=== PATIENT | female | born 1975 | race Caucasian/White ===

== ENCOUNTER → 2017-08-19 14:45 | Outpatient (CLI) | payer BC, SELFPAY ==
--- NOTE | 2017-08-19 15:00 | CT_ITS ---
STUDY: CT CHEST WITHOUT CONTRAST REASON FOR EXAM: Female, 42 years old. Follow-up of nodule RADIATION DOSAGE (If Supplied By Facility): CTDIvol = ( 15.74 ) mGy, DLP = ( 507.48 ) mGycm TECHNIQUE: Transaxial imaging was performed without the administration of intravenous contrast material. Individualized dose optimization techniques were used for this CT. COMPARISON: 02/14/2017 FINDINGS: Small intrafissural nodule in the left lung apex is unchanged at 4 mm. 2 other small pleural-based nodules along the right upper lobe are also unchanged. Lungs are clear. No new masses or nodules. The lungs are normal. There is no demonstrated pleural abnormality. Normal heart and pericardium. Normal mediastinum. Normal hilar regions. Normal unenhanced pulmonary arteries. Normal aorta arch and descending thoracic aorta. Normal osseous structures. There is no demonstrated abnormality of the visualized upper abdomen. CT/Chest without Contrast IMPRESSION: Lungs are adequately inflated and clear. Stable small micronodules in the left upper lobe and right upper lobe. Recommend repeat exam in one year. Electronically Signed: David Abdi DO at 15:51 EDT Tel , Service support ,
== END ==
PROVIDERS: Family Provider Family Medicine; PCP Family Medicine; Visit Provider Internal Medicine Critical Care Medicine
DX: R91.1 Solitary pulmonary nodule (principal)
CPT/HCPCS: 71250

== ENCOUNTER → 2017-12-17 09:05 | Outpatient (CLI) | payer BC, SELFPAY | PROVIDERS: Family Provider Family Medicine; PCP Family Medicine; Referring Provider Nurse Practitioner Acute Care; Visit Provider Nurse Practitioner Acute Care | DX: R05 Cough (principal) | CPT/HCPCS: 87070; 87205 ==

== ENCOUNTER → 2018-01-20 16:13 | Outpatient (CLI) | payer BC, SELFPAY ==
[2017-12-15 09:09] VITALS: BMI 42.3
[2018-01-20 17:00] LABS: Absolute Lymphocyte Count 2.35 X10^3/ul (0.83-4.51); Basophil# 0.02 X10^3/uL; Basophil% 0.2 % (0-1); Eosinophil# 0.11 X10^3/uL; Eosinophils% 1.4 % (0-5); Hematocrit 38.6 % (37-47); Hemoglobin 12.7 g/dl (12.0-15.0); Lymphocyte # 2.35 X10^3/ul (4.0); Lymphocyte % 29.1 % (19-41); Mean Corp Hgb Conc 32.9 g/gl (32-36); Mean Corpuscular Hgb 28.2 pg (27.0-32.0); Mean Corpuscular Volume 85.6 fL (81-99); Mean Platelet Vol. 10.2 fl (6.2-12.0); Monocyte# 0.56 X10^3/uL; Monocyte% 6.9 % (0-10); Neutrophil # 4.98 X10^3/uL (2.7-7.7); Neutrophil % 61.7 % (47-70); Platelet Count 218 K/mm3 (150-450); RBC Distribution Width CV 13.7 % (11.6-14.6); Red Blood Count 4.51 M/mm3 (4.2-5.4); White Blood Count 8.1 K/mm3 (4.4-11.0)
[2018-01-20 17:08] LABS: POSITIVE COUNT NO; POSITIVE DIFFERENTIAL NO; POSITIVE MORPHOLOGY NO
[2018-01-24 05:08] LABS: Alternaria alternata <0.10 kU/L (Class 0); Bermuda Grass <0.10 kU/L (Class 0); Bluegrass, Kentucky <0.10 kU/L (Class 0); Cat Hair/Dander, Standard <0.10 kU/L (Class 0); D farinae Mite <0.10 kU/L (Class 0); D pteronyssinus <0.10 kU/L (Class 0); Dog Epithelia <0.10 kU/L (Class 0); Elm, American White <0.10 kU/L (Class 0); Oak, White <0.10 kU/L (Class 0); Plantain, English <0.10 kU/L (Class 0); Ragweed, Short/Common <0.10 kU/L (Class 0)
[2018-01-26 11:31] LABS: Mouse Urine <0.10 kU/L (Class 0)
--- OUTSIDE RECORDS SUMMARY | 2018-03-08 23:29 | XMS RPT_ITS ---
:1975 Author Organization [place] Support Name Relationship Address Phone JC HAWK Unavailable [address] + [address] [place] [address] WOOBR Unavailable [address] [place] [address] JC HAWK Unavailable [address] + [address] [place] [address] WOOBR Unavailable [address] [place] [address] KENNJC Unavailable [address] + [address] [place] [address] WOOBR Unavailable [address] [place] [address] KENNJC Unavailable [address] + [address] [place] [address] WOOBR Unavailable [address] [place] [address] KENN JC Unavailable [address] + [address] [place] [address] WOOBR Unavailable [address] [place] [address] KENNJC Unavailable [address] [place] [address] JC HAWK Unavailable [address] + [address] [place] [address] WOOBR Unavailable [address] + [address] [place] [address] NEBERGALL, JC Unavailable [address] + [address] [place] [address] WOOBR Unavailable [address] [place] [address] KENN JC Unavailable [address] + [address] [place] [address] WOOBR Unavailable [address] [place] [address] Care Team Providers Name Role Phone ALEXANDRA KAMARA Attending Unavailable MARILYNN, JC L Referring Unavailable ALEXANDRA KAMARA Attending Unavailable MARILYNN, JC L Referring Unavailable Valentin Cruz Attending Unavailable MARILYNN, JC Primary Care Unavailable Valentin Cruz Referring Unavailable AnthonyValentin pittman Attending Unavailable MARILYNN, JC Referring Unavailable MARILYNN, JC Primary Care Unavailable Matilda Worthy Attending Unavailable Worthy, Matilda Referring Unavailable MARILYNN, JC Primary Care Unavailable Matilda Worthy Attending Unavailable MARILYNN, JC Referring Unavailable WorthyMatilda Attending Unavailable Worthy, Matilda Referring Unavailable MARILYNN, JC Primary Care Unavailable Matilda Worthy Attending Unavailable MARILYNN, JC Referring Unavailable Worthy, Matilda Attending Unavailable MARILYNN, JC Referring Unavailable Valentin Cruz Attending Unavailable MARILYNN, JC Referring Unavailable MARILYNN, JC Primary Care Unavailable RADHA MENESES Attending Unavailable AYLA SUBRAMANIAN Primary Care Unavailable Enzo Hutchins Attending Unavailable Marilynn, Jc Primary Care Unavailable Enzo Hutchins Attending Unavailable Marilynn, Jc Primary Care Unavailable Enzo Hutchins Attending Unavailable Marilynn, Jc Primary Care Unavailable Enzo Hutchins Admitting Unavailable Enzo Hutchins Attending Unavailable Marilynn, Jc Primary Care Unavailable Marilynn, Jc Primary Care Unavailable Enzo Hutchins Admitting Unavailable Enzo Hutchins Attending Unavailable Enzo Hutchins Admitting Unavailable Enzo Hutchins Attending Unavailable Marilynn, Jc Primary Care Unavailable Enzo Hutchins Attending Unavailable Marilynn, Jc Primary Care Unavailable Enzo Hutchins Attending Unavailable Marilynn, Jc Primary Care Unavailable Awilda Alvarez L Attending Unavailable Marilynn, Jc Primary Care Unavailable Kim Awilda L Admitting Unavailable Kim Awilda L Admitting Unavailable Kim Awilda L Attending Unavailable Marilynn, Jc Primary Care Unavailable Cuong, Enzo R Admitting Unavailable Cuong, Enzo R Attending Unavailable Marilynn, Jc Primary Care Unavailable Cuong, Enzo R Admitting Unavailable Cuong, Enzo R Attending Unavailable Marilynn, Jc Primary Care Unavailable Radha Meneses E Admitting Unavailable [place]ha E Attending Unavailable Marilynn, Jc Primary Care Unavailable Cuong, Enzo R Attending Unavailable Marilynn, Jc Primary Care Unavailable Cuong, Enzo R Admitting Unavailable Cuong, Enzo R Attending Unavailable Marilynn, Jc Primary Care Unavailable Cuong, Enzo R Admitting Unavailable Cuong, Enzo R Attending Unavailable Marilynn, Jc Primary Care Unavailable Cuong, Enzo R Attending Unavailable Marilynn, Cj Primary Care Unavailable Cuong, Enzo R Admitting Unavailable Cuong, Enzo R Attending Unavailable Marilynn, Jc Primary Care Unavailable Cuong, Enzo R Attending Unavailable Marilynn, Jc Primary Care Unavailable PROBLEMS PROBLEMS DATE TYPE CONDITION / CODE ATTENDING STATUS SOURCE 02/27/2018 Unknown R09.82 - Worthy, Active [facility] Postnasal drip / [facility] R09.82(ICD-10) Hospital Repository 02/27/2018 Unknown J40 - Bronchitis, Worthy, Active [facility] not specified as [facility] acute or chronic Hospital / J40(ICD-10) Repository 12/17/2017 Unknown R05 - Cough / Worthy, Active [place] R05(ICD-10) [facility] Repository 12/02/2017 Unknown R06.2 - Wheezing Worthy, Active [place] / R06.2(ICD-10) [facility] Repository 10/24/2017 Admitting Chronic migraine RAALEXANDRA MCCORMICK F Active [facility] Diagnosis without aura, not System ([place]) intractable, Repository without status migrainosus / G43.709(ICD-10) 10/07/2016 Admitting Hyperlipidemia, RADHA MENESES Active [facility] diagnosis unspecified / [facility] Repository E78.5(ICD-10) 08/19/2017 Unknown R91.1 - Solitary Anthony, Valentin Active [place] pulmonary nodule [facility] / R91.1(ICD-10) Hospital Repository PROCEDURES PROCEDURES No Procedure Records FoundRESULTS RESULTS PULMONARY VISIT REPORT Observed: 02/26/2018 Status: F Source: [place] 2:48 PM [facility] [place] [facility] [place] [address] [place] [address] OFFICE VISIT Date of Service: 02/26/18 MR#: [id number] Acct: [id number] Name: SURAJ HAWK Rep #: [id number] : 1975 Provider: Matilda Worthy Age/Sex: 42/F Location[place] [facility] [place] Status: Signed Assessment AND Plan 1. PND (post-nasal drip) R09.82 Plan Stable. Continue Dymista. Follow-up with Dr. Cruz in 3 months. 2. Bronchitis J40 Plan This patient does very well for significant amount of time, however occasionally she has an episode similar to reactive airway disorder, triggered by bacterial or viral respiratory illness. At that time it typically requires a prednisone taper, sometimes repeated to control her symptoms. The prednisone is the only thing that has been helpful to her during these episodes. Given that the only occur when a respiratory insult happens, and they cause her cough and hoarseness, it is reasonable to wonder if there is vocal cord polyps causing her symptoms. Defer further evaluation to ENT, whom she has established in [place]. Follow-up with Dr. Cruz in 3 months. Contact the office with any new or worsening symptoms in the meantime. Appreciate ENT input. Plan Detail Follow Up 3 Months ([facility]) HPI 6 M FU: Chief Complaint: None HPI Comments Details: This patient presents the office today follow-up on her hoarseness. She is ambulatory and currently in room air. She has not been seen by the ED or urgent care for respiratory illnesses. She has not required any antibiotics or prednisone for any breathing problems since her last office visit. She is not currently on any maintenance inhalers. She does take Dymista twice daily. She reports that it does control her postnasal drip. She has not needed to use her rescue inhaler. She denies any medication side effects such as epistaxis. She does not currently have any shortness of breath with conversation, at rest or even on exertion. She denies any cough, sputum production or hemoptysis. She denies any wheezing, chest tightness, chest pain, palpitation or hoarseness. She denies any fever, chills or body aches. See complete review of systems. Laboratory Tests WBC 8.1 Eos % (Auto) 1.4 Alternar. alternata IgE <0.10 Intake Vital Signs02/26/18 Height 5 ft 1 in 02/26/18 Weight: 231 lb Intake Visit Reasons: 6 M FU Accompanied by: Self Allergies amoxicillin [From Augmentin] Allergy (Severe, Verified 12/15/17 08:08) unknown clavulanic acid [From Augmentin] Allergy (Severe, Verified 12/15/17 08:08) unknown levofloxacin [From Levaquin] Allergy (Severe, Verified 12/15/17 08:08) Unknown sulfamethoxazole [From Bactrim] Allergy (Severe, Verified 12/15/17 08:08) unknown trimethoprim [From Bactrim] Allergy (Severe, Verified 12/15/17 08:08) unknown Sulfa (Sulfonamide Antibiotics) Allergy (Unknown, Verified 12/15/17 08:08) Unknown Medications albuterol sulfate HFA 90 mcg/actuation aerosol inhaler 2 puff INHALATION Q4H PRN g 02/14/17 [History Confirmed 02/26/18] azelastine-fluticasone 137 mcg-50 mcg/spray nasal spray 1 spray INTRANASAL Q12H #23 g 02/14/17 [Rx Confirmed 02/26/18] budesonide-formoterol HFA 160 mcg-4.5 mcg/actuation aerosol inhaler 2 puff INHALATION Q12H 02/14/17 [History Confirmed 02/26/18] montelukast 10 mg tablet 10 mg PO QHS 02/14/17 [History Confirmed 02/26/18] loratadine 10 mg tablet 10 mg PO QDAY 08/25/17 [History Confirmed 02/26/18] [facility] Medical History Abnormal pulmonary function test (Acute) Dyspnea (Acute) Hoarseness (Acute) Migraine (Acute) Sinusitis (Acute) Sore throat (Acute) Wheezing (Acute) Allergic rhinitis (Chronic) Bronchitis (Chronic) Chronic cough (Chronic) Cough (Chronic) Hyperlipidemia (Chronic) Lung nodule (Chronic) Obesity (Chronic) Surgical History H/O foot surgery (Resolved) Previous section (Resolved) tubal ligation and ablasion (Resolved) Family History Grandmother Breast cancer Father Heart disease Social History Smoking Status: Former smoker quit date: 02/10/94 pack-years: 5 second hand exposure: No alcohol intake: never substance use type: does not use Review of Systems Const CONSTITUTIONAL: Negative anorexia, body ache, chills, daytime sleepiness, fever(s), night sweats, oral thrush, stops breathing during sleep, weight loss, sleeping in chair, fatigue, weight loss, weight gain, frequent colds, seasonal allergies, other, headache(s) or orthopnea EETM Ear Nose Throat Mouth: Positive post nasal drip; negative hard of hearing, hearing normal, hoarseness, dry mouth in morning, change in vision, itchy eyes, eye pain, swallowing Difficulty, ear pain, nose bleed, headache(s), mouth pain, nasal congestion, nasal discharge, sinus pain, sinus pressure, sore throat or other Cardio Cardiovascular: Negative chest pain, chest pain at rest, chest pain with activity, irregular heart rhythm, edema, shortness of breath when lying down, palpitations, murmur or other Resp Respiratory: Positive as per HPI and cough (due to PND) cough: Positive non-productive; negative shortness of breath, pain with cough, wheezing, chest congestion, chest tightness, pain on inspiration, inhalers, increase use of rescue inhalers, snoring, apnea or other Gastro Gastrointestional: Negative bloody stools, change in appetite, difficulty swallowing, reflux, hematemesis, melena stool, loose stool, constipation or other Genitourinary: Negative blood in urine, nocturia, pain with urination or other Musc Musculoskeletal: Negative body pain, back pain, neck pain or other Skin/Breast Skin/Breast: Negative dry skin, itching, rash, unusual bruising, breast lump or other Neuro Neurological: Negative restless legs, confusion, weakness or other Psych Psychocological: Negative abnormal sleep pattern, anxiety, thoughts of hurting self/others, hopelessness or other Lymph Lymphatic: Negative easy bleeding, easy bruising, swollen lymph nodes or other Exam Const Constitutional: Positive conversant, cooperative, in no acute respiratory distress, healthy appearing, well developed, well nourished and good hygiene Head Head: Positive normocephalic and atraumatic; negative cyanosis of lips/distal nose Eyes Eye: Positive clear conjunctiva; negative nystagmus or scleral abnormality Ears Ear: Positive external ears normal; negative hard of hearing or hearing normal Nose Nose: Positive external nose normal and no nasal discharge; negative epistaxis Mouth Mouth: Positive post nasal drip, oral mucosae normal, no lesions, good dentition and posterior oropharynx is adequate; negative oral thrush present or malodorous breath Mallampati Score: I: Mallampati Score Neck Neck: Positive normal visual inspection, full ROM and trachea midline; negative lymphadenopathy, JVD or tender Chest Wall Chest: Positive normal inspection of the chest and symmetric chest movement; negative increased A/P diameter Resp lung sounds: Positive clear to auscultation, good air exchange, normal expiratory time and normal respiratory effort; negative diminished, wheezes, rhonchi, rales, dullness to percussion or wheeze present on forced exhalation Cardio Cardiac: Positive regular rate, regular rhythm, S1 normal and S2 normal; negative murmur GI GI: Positive normal to inspection; negative distended Genitourinary: Positive deferred Musc Musculoskeletal: Positive steady gait and ROM normal; negative kyphosis or scoliosis Skin Pulmonary Skin Exam: Positive intact; negative rash Pulses Pulse: Yes pulses normal x4 extremities Extremities Extremities: Yes capillary refill normal, No clubbing, No cyanosis, No edema Neuro Neurologic: Yes conversant, Yes no focal neuro deficits, Yes normal concentration, Yes understands questions, Yes cooperative, Yes normal cognition, Yes normal coordination, No tremor Lymph Lymphatic: No lymphadenopathy, No tenderness, No cervical adenopathy Psych Appearance: Positive grossly normal, eye contact and well kempt Mental Status: Positive mental status grossly normal Mood: Positive congruent mood Affect: Positive normal affect Coding Level of Care Code Off vis,est,level 3 Diagnoses PND (post-nasal drip) R09.82 Bronchitis J40 02/26/18 [id number] <Electronically signed by Matilda NOVOA> Date Matilda NOVOA Cosigner Signature: Date (if applicable) CC: NELSON MONROY; Jc Subramanian MD CBC W/DIFF, AUTOMATED Collected: 01/20/2018 Status: F Source: [place] 4:29 PM [facility] [place] TYPE CODE TESTS RESULT OUT OF RANGE REFERENCE UNITS LAB L100.1000 4.4-11.0 K/mm3 Normal WBC 8.1 LAB L100.1200 4.2-5.4 M/mm3 Normal RBC 4.51 LAB L100.1300 12.0-15.0 g/dl Normal HGB 12.7 LAB L100.1400 37-47 % Normal HCT 38.6 LAB L100.1500 81-99 fL Normal MCV 85.6 LAB L100.1600 27.0-32.0 pg Normal MCH 28.2 LAB L100.1700 32-36 g/gl Normal MCHC 32.9 LAB L100.1810 11.6-14.6 % Normal RDW CV 13.7 LAB L100.1820 35.1-43.9 fl Normal RDW SD 42.0 LAB L100.1900 150-450 K/mm3 Normal PLT 218 LAB L100.2000 6.2-12.0 fl Normal MPV 10.2 LAB L100.2100 47-70 % Normal NEUT% 61.7 LAB L100.2200 19-41 % Normal LY% 29.1 LAB L100.2300 0-10 % Normal MONO% 6.9 LAB L100.2400 0-5 % Normal EO% 1.4 LAB L100.2500 0-1 % Normal BASO% 0.2 LAB L100.2550 0.0-0.9 % Normal IM GRAN % 0.700 Result Comment: IG% - Immature Granulocytes (promyelocytes, myelocytes and metamyelocytes) > 1% indicates that a LEFT SHIFT is Present. LAB L100.2620 2.0-7.7 X10 3/uL Normal Absolute Neut 5.0 LAB L100.2720 0.83-4.51 X10 3/ul Normal Absolute Lymph 2.35 Performed By: #### L100.0100 #### [facility] [address] [place], [address] ALLERGEN, MINI-RAST Collected: 01/20/2018 Status: F Source: MER 4:29 PM [facility] [place] TYPE CODE TESTS RESULT OUT OF REFERENCE UNITS RANGE LAB L5500.1001 Class 0 kU/L D PTERONYSSINUS Normal <0.10 LAB L5500.1002 Class 0 kU/L D FARINAE MITE Normal <0.10 LAB L5500.2001 Class 0 kU/L CAT HAIR/DANDER Normal <0.10 LAB L5500.2002 Class 0 kU/L DOG EPITHELIA Normal <0.10 LAB L5500.4002 Class 0 kU/L B[place]DA GRASS Normal <0.10 LAB L5500.4008 Class 0 kU/L [place], [place] Normal <0.10 LAB L5500.5006 Class 0 kU/L A. ALTERNATA Normal <0.10 LAB L5500.6007 Class 0 kU/L [place], WHITE Normal <0.10 LAB L5500.6008 Class 0 kU/L [place],AMER WHITE Normal <0.10 LAB L5500.7001 Class 0 kU/L [place] SH/COM Normal <0.10 LAB L5500.7009 Class 0 kU/L [place],ENGLSH Normal <0.10 LAB L5500.7150 Class 0 kU/L Mouse Urine Normal <0.10 Result Comment: Performed at: [address] [id number] Adventure Guide: Magalis Gonzalez MD, Phone: [phone] LAB [id number] . Normal RAST COMMENT Comment Result Comment: Levels of Specific IgE Class Description of Class ----- < 0.10 0 Negative 0.10 - 0.31 0/I Equivocal/Low 0.32 - 0.55 I Low 0.56 - 1.40 II Moderate 1.41 - 3.90 III High 3.91 - 19.00 IV Very High 19.01 - 100.00 V Very High >100.00 Very High Performed By: #### L5500.0300 #### [facility] (refer to report for specific site) refer to report for address and phone number CBC W/ AUTO DIFF Collected: 12/25/2017 Status: F Source: SIKH 6:51 AM [facility] REPOSITORY TYPE CODE TESTS RESULT OUT OF RANGE REFERENCE UNITS LAB 63470503(L 3.6-11.0 E3/mcL OINC) Normal WBC 8.6 LAB 14264735(L 3.90-5.40 E6/mcL OINC) Normal RBC 4.63 LAB 19735685(L 12.0-16.0 G/DL OINC) Normal Hgb 13.2 LAB 46888174(L 36.0-48.0 % OINC) Normal Hct 39.8 LAB 35009366(L 11.5-14.5 % OINC) Normal RDW 14.2 LAB 64243427(L 27.0-31.0 pg OINC) Normal MCH 28.4 LAB 87760580(L 33.0-37.0 G/DL OINC) Normal MCHC 33.1 LAB 51794893(L 78.0-100.0 fL OINC) Normal MCV 85.9 LAB 09421446(L 7.4-11.0 fL OINC) Normal MPV 8.6 LAB 76221033(L 130-400 E3/mcL OINC) Normal Platelet 166 Performed By: #### [id number] #### [facility] [address] [place] [address] AUTO DIFF Collected: 12/25/2017 Status: F Source: SIKH 6:51 AM [facility] REPOSITORY Order Comment: Order Added by Discern Expert. TYPE CODE TESTS RESULT OUT OF RANGE REFERENCE UNITS LAB 36648646(L 37.0-75.0 % OINC) Normal Neutro Auto 73.2 LAB 57719648(L 20.0-55.0 % OINC) Low Lymph Auto 18.0 LAB 10110699(L 0.0-10.0 % OINC) Normal [place] Auto 6.1 LAB 41757909(L 0.0-11.0 % OINC) Normal Eos Auto 2.2 LAB 44110620(L 0.0-2.0 % OINC) Normal Basophil Auto 0.5 LAB 36293180(L 1.4-6.5 E3/mcL OINC) Normal Neutro 6.3 Absolute LAB 48709613(L 1.2-3.4 E3/mcL OINC) Normal Lymph Absolute 1.6 LAB 98819649(L 0.0-0.7 E3/mcL OINC) Normal [place] Absolute 0.5 LAB 16335000(L 0.0-0.7 E3/mcL OINC) Normal Eos Absolute 0.2 LAB 09040174(L 0.0-0.2 E3/mcL OINC) Normal Basophil 0.0 Absolute Performed By: #### [id number] #### [facility] [address] [place] [address] BHCG QUAL Collected: 12/25/2017 Status: F Source: SIKH 6:51 AM [facility] REPOSITORY TYPE CODE TESTS RESULT OUT OF RANGE REFERENCE UNITS LAB 65179615(LO Negative INC) Normal Beta Negative hCG Ql Performed By: #### [id number] #### ANNA Chemistry Manual Subsection [facility] [place] [address] XR HYSTEROSALPINGOGRAPHY Observed: Status: F Source: SIKH 12/17/2017 8:26 AM [facility] REPOSITORY Exam Date/Time: 12/17/2017 08:26 EST Reason for Exam: MENOMETRORRHAGIA;Other (please specify) Report STUDY: XR Hysterosalpingography; 12/17/2017 8:26 am INDICATION: Menometrorrhagia COMPARISON: None. ACCESSION NUMBER(S): [id number] ORDERING CLINICIAN: Enzo Hutchins TECHNIQUE: An HSG was performed in conjunction with Dr. Dr. Hutchins. 10 ML of contrast was infused under fluoroscopic guidance and spot views of the uterus and bilateral fallopian tubes were obtained. The patient tolerated the procedure well. Fluoroscopic time was 0.7 min. FINDINGS: Contrast is observed to fill a uterus that is irregular in contour, with no filling of the right uterine horn.. No contrast is seen to enter the fallopian tubes bilaterally. IMPRESSION: 1. Irregular contour of the endometrial canal, as above.. Correlate with real time fluoroscopic findings at the time of procedure. FINAL REPORT Dictated: 12/17/2017 9:45 am Hunter Redding MD Signed (Electronic Signature): 12/17/2017 9:45 am Signed by: Hunter Redding MD Technologist: HIPOLITO Observed: 12/17/2017 Status: F Source: MER CULTURE, SPUTUM 6:00 AM [facility] [place] Gram Stain Acceptable Specimen? Yes (<25 Epithelial cells per/lpf) Gram Stain 4+ Gram positive cocci Rare Gram positive rods Very Rare Yeast Like Organisms 1+ White Blood Cells 1+ Epithelial cells Resp. Culture Mixed normal respiratory sandoval. No Haemophilus, Streptococcus pneumoniae, beta-hemolytic Streptococcus or Staphylococcus aureus isolated. Performed By: #### M100.0800 #### [facility] [address] [place], [address] PULMONARY VISIT REPORT Observed: 12/16/2017 Status: F Source: MER 12:18 PM [facility] [place] [facility] [address] [place] [address] OFFICE VISIT Date of Service: 12/15/17 MR#: [id number] Acct: [id number] Name: SURAJ HAWK Rep #: [id number] : 1975 Provider: Matilda Worthy Age/Sex: 42/F Location[place] [facility] [place] Status: Signed Assessment AND Plan 1. Cough R05 Plan Deteriorated. We will attempt to obtain a sputum culture. Kenalog injection in the office today followed by a prednisone burst. Increased Symbicort from the 80 mcg dosing to the 160 mcg dosing. Follow-up in 6 weeks. Continue all maintenance medications. Plan for a CBC with differential and a mini Rast test prior to the 6-week follow- up. Looking for possible eosinophilic asthma. Orders Orders: Medications Discontinued: Kenalog (triamcinolone acetonide) Discontinued Rea60 mg (1.5 mL) IM ONCE 1.5 mL 0RF NS son: Office Medication has been Documented as given 2. PND (post-nasal drip) R09.82 Plan Deteriorated. Continue Dymista. Continue weekly allergy injections per ENT. Follow-up in 6 weeks. Additional blood work in 5 weeks. Plan Detail Other Medications New: Follow Up 6 Weeks ([facility]) HPI not feeling well: Chief Complaint: Cough HPI Comments Details: This patient presents the office today to follow-up after recently being treated for an exacerbation of asthma. She finished the antibiotics and prednisone as prescribed but did not return to baseline. She continues to have a cough that is productive of yellow sputum. She denies any shortness of breath, but does report that when she is coughing persistently at times it does take her breath away. She denies any fever, chills or body aches. She continues to experience clear nasal drainage. She is having hoarseness. She now is having a sore throat which she attributes to the frequent cough. She denies any wheezing, chest tightness, chest pain or palpitations. She is compliant with Dymista, Singulair, Claritin and is recently been using Symbicort 80 mcg. See complete review of systems. Intake Vital Signs12/15/17 Height 5 ft 1 in 12/15/17 Weight: 224 lb Intake Visit Reasons: not feeling well Chief Complaint: Cough Allergies amoxicillin [From Augmentin] Allergy (Severe, Verified 12/15/17 08:08) unknown clavulanic acid [From Augmentin] Allergy (Severe, Verified 12/15/17 08:08) unknown levofloxacin [From Levaquin] Allergy (Severe, Verified 12/15/17 08:08) Unknown sulfamethoxazole [From Bactrim] Allergy (Severe, Verified 12/15/17 08:08) unknown trimethoprim [From Bactrim] Allergy (Severe, Verified 12/15/17 08:08) unknown Sulfa (Sulfonamide Antibiotics) Allergy (Unknown, Verified 12/15/17 08:08) Unknown Medications albuterol sulfate HFA 90 mcg/actuation aerosol inhaler 2 puff INHALATION Q4H PRN g 02/14/17 [History Confirmed 12/15/17] azelastine-fluticasone 137 mcg-50 mcg/spray nasal spray 1 spray INTRANASAL Q12H #23 g 02/14/17 [Rx Confirmed 12/15/17] budesonide-formoterol HFA 160 mcg-4.5 mcg/actuation aerosol inhaler 2 puff INHALATION Q12H 02/14/17 [History Confirmed 12/15/17] montelukast 10 mg tablet 10 mg PO QHS 02/14/17 [History Confirmed 12/15/17] loratadine 10 mg tablet 10 mg PO QDAY 08/25/17 [History Confirmed 12/15/17] prednisone 20 mg tablet 60 mg PO QDAY #15 tab 12/15/17 [Rx Confirmed 12/15/17] PF[facility] Medical History Abnormal pulmonary function test (Acute) Dyspnea (Acute) Hoarseness (Acute) Migraine (Acute) Sinusitis (Acute) Sore throat (Acute) Wheezing (Acute) Allergic rhinitis (Chronic) Bronchitis (Chronic) Chronic cough (Chronic) Cough (Chronic) Hyperlipidemia (Chronic) Lung nodule (Chronic) Obesity (Chronic) Surgical History H/O foot surgery (Resolved) Previous section (Resolved) tubal ligation and ablasion (Resolved) Family History Grandmother Breast cancer Father Heart disease Social History Smoking Status: Former smoker quit date: 02/10/94 pack-years: 5 second hand exposure: No alcohol intake: never substance use type: does not use Review of Systems Const CONSTITUTIONAL: Positive fatigue; negative anorexia, body ache, chills, daytime sleepiness, fever(s), night sweats, oral thrush, stops breathing during sleep, weight loss, sleeping in chair, weight loss, weight gain, frequent colds, seasonal allergies, other, headache(s) or orthopnea EETM Ear Nose Throat Mouth: Positive hearing normal, hoarseness, nasal discharge, post nasal drip and sore throat; negative hard of hearing, dry mouth in morning, change in vision, itchy eyes, eye pain, swallowing Difficulty, ear pain, nose bleed, headache(s), mouth pain, nasal congestion, sinus pain, sinus pressure or other Cardio Cardiovascular: Negative chest pain, chest pain at rest, chest pain with activity, irregular heart rhythm, edema, shortness of breath when lying down, palpitations, murmur or other Resp Respiratory: Positive as per HPI, shortness of breath shortness of breath: Positive with activity, pain with cough, wheezing, cough cough: Positive productive color: Positive thick and yellow, chest tightness and inhalers; negative chest congestion, pain on inspiration, increase use of rescue inhalers, snoring, apnea or other Gastro Gastrointestional: Negative bloody stools, change in appetite, difficulty swallowing, reflux, hematemesis, melena stool, loose stool, constipation or other Genitourinary: Negative blood in urine, nocturia, pain with urination or other Musc Musculoskeletal: Negative body pain, back pain, neck pain or other Skin/Breast Skin/Breast: Negative dry skin, itching, rash, unusual bruising, breast lump or other Neuro Neurological: Negative restless legs, confusion, weakness or other Psych Psychocological: Negative abnormal sleep pattern, anxiety, thoughts of hurting self/others, hopelessness or other Lymph Lymphatic: Negative easy bleeding, easy bruising, swollen lymph nodes or other Exam Const Constitutional: Positive conversant, cooperative, in no acute respiratory distress, healthy appearing, well developed, well nourished, good hygiene and obese Head Head: Positive normocephalic and atraumatic; negative cyanosis of lips/distal nose Eyes Eye: Positive clear conjunctiva; negative nystagmus or scleral abnormality Ears Ear: Positive hearing normal and external ears normal; negative hard of hearing Nose Nose: Positive external nose normal and no nasal discharge; negative epistaxis Mouth Mouth: Positive post nasal drip, oral mucosae normal, no lesions, posterior oropharynx is adequate and crowded posterior oropharynx; negative malodorous breath or oral thrush present Mallampati Score: III: Mallampati Score Neck Neck: Positive normal visual inspection, full ROM and trachea midline; negative lymphadenopathy, JVD or tender Chest Wall Chest: Positive normal inspection of the chest and symmetric chest movement; negative increased A/P diameter Resp lung sounds: Positive diminished, wheeze present on forced exhalation, normal expiratory time and normal respiratory effort; negative rhonchi, rales or dullness to percussion Cardio Cardiac: Positive regular rate, regular rhythm, S1 normal and S2 normal; negative murmur GI GI: Positive normal to inspection and obese; negative distended Genitourinary: Positive [place] [facility] Musculoskeletal: Positive steady gait and ROM normal; negative kyphosis or scoliosis Skin Pulmonary Skin Exam: Positive intact; negative rash Pulses Pulse: Yes pulses normal x4 extremities Extremities Extremities: No capillary refill normal, No clubbing, No cyanosis, No edema Neuro Neurologic: Yes conversant, Yes no focal neuro deficits, Yes normal concentration, Yes understands questions, Yes cooperative, Yes normal cognition, Yes normal coordination Lymph Lymphatic: No lymphadenopathy, No tenderness, No cervical adenopathy Psych Appearance: Positive grossly normal, eye contact and well kempt Mental Status: Positive mental status grossly normal Mood: Positive congruent mood Affect: Positive normal affect Office Meds Kenalog Performing Provider: SOMMER Vargas Administered by: Gabriela Ayala on 12/15/17 09:49 Dose Route Admin Location Lot Number Expiration Date NDC Post Tension[employer] 60 mg IM Lt gluteal [id number] 02/10/19 0509-6301-06 DorsaVI Coding Level of Care Code Off vis,est,level 4 Diagnoses Cough R05 PND (post-nasal drip) R09.82 12/16/17 1218 <Electronically signed by Matilda NOVOA> Date Matilda NOVOA Cosigner Signature: Date (if applicable) CC: Jc Subramanian MD U BHCG QLT Collected: 12/13/2017 Status: F Source: [place] 10:03 AM [facility] REPOSITORY TYPE CODE TESTS RESULT OUT OF RANGE REFERENCE UNITS LAB [id number](BIA Neg NC) Normal U beta Neg hCG Ql Performed By: #### [id number] #### ANNA Urinalysis Manual [address] [address] PULMONARY VISIT REPORT Observed: 12/03/2017 Status: F Source: [place] 8:02 AM [facility] [place] Pul[facility] Medicine [address] [place], [place] [address] OFFICE VISIT Date of Service: 12/02/17 MR#: [id number] Acct: [id number] Name: SURAJ HAWK Rep #: [id number] : 1975 Provider: Matilda Worthy Age/Sex: 42/F Location[place] [facility] [email or web address] Status: Signed Assessment AND Plan 1. Bronchitis J40 Plan Deteriorated. Treating for bronchitis with possibly a sinusitis, Augmentin times 10 days, Kenalog injection in the office today. She has been advised to contact the office on Friday to give us an update, may require a prednisone burst. Continue Symbicort for now. Keep previously scheduled routine follow-up. Contact the office with any new or worsening symptoms in the meantime. 2. PND (post-nasal drip) R09.82 Plan Continue maintenance medication. Plan Detail Other Orders Orders: Other Medications New: Discontinued: Kenalog (triamcinolone acetonide) [id number] mg (1.5 mL) IM ONCE 1.5 mL 0RF NS R06.2 d Reason: Office Medication has been Documented as given HPI hoarseness, sinuses: Chief Complaint: Cough HPI Comments Details: This patient presents the office today for an acute visit regarding cough. She reports that her symptoms began approximately 1 week ago. Her cough is more frequent in the morning and is productive of yellow sputum, after the morning begins her cough becomes dry and barking throughout the day. She has not experienced any fevers. She does report chest tightness and chest congestion. She also notes hoarseness, left ear discomfort and popping. She has experienced chills and fatigue. She reports that her children have been ill with similar symptoms but they have resolved in a short period of time. She is now on the Symbicort, had stopped taking it for quite some time but resumed taking the Symbicort when the illness began. She is using her pro-air 2-3 times per day but has not noticed it relieving her cough. She is not having any worsening shortness of breath. She denies any palpitations or chest pain. See complete review of systems. She has not added any [id number] medications, is compliant with Dymista and Singulair as previously prescribed. Intake Vital Signs12/02/17 Height 5 ft 1 in 12/02/17 Weight: 224 lb Intake Visit Reasons: hoarseness, sinuses Accompanied by: Self Allergies amoxicillin [From Augmentin] Allergy (Severe, Verified 12/02/17 11:59) unknown clavulanic acid [From Augmentin] Allergy (Severe, Verified 12/02/17 11:59) unknown levofloxacin [From Levaquin] Allergy (Severe, Verified 12/02/17 11:59) Unknown sulfamethoxazole [From Bactrim] Allergy (Severe, Verified 12/02/17 11:59) unknown trimethoprim [From Bactrim] Allergy (Severe, Verified 12/02/17 11:59) unknown Sulfa (Sulfonamide Antibiotics) Allergy (Unknown, Verified 12/02/17 11:59) Unknown Medications albuterol sulfate HFA 90 mcg/actuation aerosol inhaler 2 puff INHALATION Q4H PRN g 02/14/17 [History Confirmed 12/02/17] azelastine-fluticasone 137 mcg-50 mcg/spray nasal spray 1 spray INTRANASAL Q12H #23 g 02/14/17 [Rx Confirmed 12/02/17] budesonide-formoterol HFA 160 mcg-4.5 mcg/actuation aerosol inhaler 2 puff INHALATION Q12H 02/14/17 [History Confirmed 12/02/17] montelukast 10 mg tablet 10 mg PO QHS 02/14/17 [History Confirmed 12/02/17] loratadine 10 mg tablet 10 mg PO QDAY 08/25/17 [History Confirmed 12/02/17] amoxicillin 875 mg-potassium clavulanate 125 mg tablet 1 tab PO BID #20 tab 12/02/17 [Rx Confirmed 12/02/17] [facility] Medical History Abnormal pulmonary function test (Acute) Dyspnea (Acute) Hoarseness (Acute) Migraine (Acute) Sinusitis (Acute) Sore throat (Acute) Wheezing (Acute) Allergic rhinitis (Chronic) Bronchitis (Chronic) Chronic cough (Chronic) Cough (Chronic) Hyperlipidemia (Chronic) Lung nodule (Chronic) Obesity (Chronic) Surgical History H/O foot surgery (Resolved) Previous section (Resolved) tubal ligation and ablasion (Resolved) Family History Grandmother Breast cancer Father Heart disease Social History Smoking Status: Former smoker quit date: 02/10/94 pack-years: 5 second hand exposure: No alcohol intake: never substance use type: does not use Review of Systems Const CONSTITUTIONAL: Positive chills and fatigue; negative anorexia, body ache, daytime sleepiness, fever(s), night sweats, oral thrush, stops breathing during sleep, weight loss, sleeping in chair, weight loss, weight gain, frequent colds, seasonal allergies, other, headache(s) or orthopnea EETM Ear Nose Throat Mouth: Positive hearing normal, hoarseness, ear pain (popping and plugged), nasal congestion, nasal discharge, post nasal drip and sore throat; negative hard of hearing, dry mouth in morning, change in vision, itchy eyes, eye pain, swallowing Difficulty, nose bleed, headache(s), mouth pain, sinus pain, sinus pressure or other Cardio Cardiovascular: Negative chest pain, chest pain at rest, chest pain with activity, irregular heart rhythm, edema, shortness of breath when lying down, palpitations, murmur or other Resp Respiratory: Positive as per HPI, shortness of breath shortness of breath: Positive with activity and worsening, pain with cough, chest congestion, cough cough: Positive productive (upon rising ) color: Positive thick and yellow, chest tightness and inhalers; negative wheezing, pain on inspiration, increase use of rescue inhalers, snoring, apnea or other Gastro Gastrointestional: Negative bloody stools, change in appetite, difficulty swallowing, reflux, hematemesis, melena stool, loose stool, constipation or other Genitourinary: Negative blood in urine, nocturia, pain with urination or other Musc Musculoskeletal: Negative body pain, back pain, neck pain or other Skin/Breast Skin/Breast: Negative dry skin, itching, rash, unusual bruising, breast lump or other Neuro Neurological: Negative restless legs, confusion, weakness or other Psych Psychocological: Positive abnormal sleep pattern; negative anxiety, thoughts of hurting self/others, hopelessness or other Lymph Lymphatic: Negative easy bleeding, easy bruising, swollen lymph nodes or other Exam Const Constitutional: Positive conversant, cooperative, in no acute respiratory distress, healthy appearing, well developed, well nourished, good hygiene and obese Head Head: Positive normocephalic, atraumatic and maxillary sinus tenderness; negative cyanosis of lips/distal nose or frontal sinus tenderness Eyes Eye: Positive clear conjunctiva; negative nystagmus or scleral abnormality Ears Ear: Positive hearing normal, external ears normal and TM dull (left); negative hard of hearing Nose Nose: Positive external nose normal and no nasal discharge; negative epistaxis Mouth Mouth: Positive post nasal drip, oral mucosae normal, no lesions, good dentition and posterior oropharynx is adequate; negative malodorous breath or oral thrush present Mallampati Score: II: Mallampati Score Neck Neck: Positive normal visual inspection, full ROM and trachea midline; negative lymphadenopathy, JVD or tender Chest Wall Chest: Positive normal inspection of the chest and symmetric chest movement; negative increased A/P diameter Resp lung sounds: Positive diminished, wheeze present on forced exhalation, normal expiratory time and normal respiratory effort; negative wheezes, rhonchi, rales or dullness to percussion Cardio Cardiac: Positive regular rate, regular rhythm, S1 normal and S2 normal; negative murmur GI GI: Positive normal to inspection and obese; negative distended Genitourinary: Positive deferred Musc Musculoskeletal: Positive steady gait and ROM normal; negative kyphosis or scoliosis Skin Pulmonary Skin Exam: Positive intact; negative rash Pulses Pulse: Yes pulses normal x4 extremities Extremities Extremities: Yes capillary refill normal, No clubbing, No cyanosis, No edema Neuro Neurologic: Yes conversant, Yes no focal neuro deficits, Yes normal concentration, Yes understands questions, Yes cooperative, Yes normal cognition, Yes normal coordination Lymph Lymphatic: No lymphadenopathy, No tenderness, No cervical adenopathy Psych Appearance: Positive grossly normal, eye contact and well kempt Mental Status: Positive mental status grossly normal Mood: Positive congruent mood Affect: Positive normal affect Office Meds Kenalog Performing Provider: SOMMER Vargas Administered by: Gabriela Ayala on 12/02/17 14:35 Dose Route Admin Location Lot Number Expiration Date NDC Post Tension[employer] Helper 60 mg IM Rt Gluteal [id number] 02/10/19 2472-3091-93 DorsaVI Coding Level of Care Code Off vis,est,level 4 Diagnoses Bronchitis J40 PND (post-nasal drip) R09.82 12/03/17 0802 <Electronically signed by Matilda NOVOA> Date Matilda NOVOA Cosigner Signature: Date (if applicable) CC: Jc Subramanian MD LIPID PROFILE Collected: 09/20/2017 Status: F Source: [place] 7:07 AM [facility] REPOSITORY TYPE CODE TESTS RESULT OUT OF RANGE REFERENCE UNITS LAB [id number](LO 50-200 mg/dL INC) High Chol 239 Result Comment: TOTAL CHOLEESTEROL: <200 NORMAL 200 - 239 BORDERLINE HIGH >240 HIGH LAB [id number](LOINC) >=41 mg/dL Normal HDL 56 LAB [id number](LOINC) 0-130 mg/dL High LDL 172 Result Comment: <100 OPTIMAL 100-129 NEAR / ABOVE OPTIMAL 130-159 BORDERLINE HIGH 160-189 HIGH >190 VERY HIGH CALC LDL NOT VALID WHEN TRIGLYCERIDE IS >400 MG/DL LAB [id number](LOINC) 35-150 mg/dL Normal Trig 57 Result Comment: <150 NORMAL 150-199 BORDERLINE HIGH 200-499 HIGH >500 VERY HIGH LAB [id number](LOINC) Normal VLDL 11 Performed By: #### [id number] #### ANNA [facility] [address] [place] [address] MAMM SCREEN W/CAD Observed: 09/08/2017 Status: F Source: [facility] IF PERFORMED BILAT 7:40 AM [facility] REPOSITORY Exam Date/Time: 09/08/2017 07:49 EDT Reason for Exam: SCREENING;Screening Report STUDY: Digital mammography screening; 09/08/2017 7:49 am ACCESSION NUMBER(S): [id number] ORDERING CLINICIAN: Enzo Hutchins INDICATION: Screening. COMPARISON: Comparison is made to prior digital mammograms dated 10/31/2016 and 11/02/2015 FINDINGS: CC and MLO 2D digital mammographic images of the bilateral breasts were obtained. There are areas of scattered fibroglandular tissue. No discrete mass or focal asymmetry is identified. No suspicious microcalcifications or foci of architectural distortion are seen. There has been no significant change. This study was interpreted with CAD. IMPRESSION: No mammographic evidence of malignancy. BI-RADS CATEGORY: Category: 1 - Negative. Recommendation: Normal Interval Follow-up, Over Age 40. Recall Interval: 12 Months. Breast Density: Scattered Fibroglandular Density. FINAL REPORT Dictated: 09/08/2017 9:46 am Hunter Redding MD Signed (Electronic Signature): 09/08/2017 9:46 am Signed by: Hunter Redding MD Technologist: FANTASMA Assessment: BI-RADS Category 1-Negative Recommendation: Normal interval follow-up PULMONARY VISIT REPORT Observed: 08/25/2017 Status: F Source: [place] 3:17 PM [facility] [place] [facility] [place] [address] [place] [address] OFFICE VISIT Date of Service: 08/25/17 MR#: [id number] Acct: [id number] Name: SURAJ HAWK Rep #: [id number] : 1975 Provider: Valentin Cruz MD Age/Sex: 42/F Location: [facility] Status: Signed Assessment AND Plan 1. Cough R05 Plan High clinical suspicion for chronic cough secondary to postnasal drip and patient is in a low allergy season for her. Will attempt to come off of inhaled steroids at this time. Patient was instructed that if cough were to develop and she required albuterol more than twice per week, she would reinitiate on Symbicort 80/4.5 (samples given). If this was unsuccessful, patient would substitute Symbicort 160/4.5 and if still not controlled patient would progress to Dymista nasal spray. Discontinue Symbicort. Self-management as above 2. PND (post-nasal drip) R09.82 Plan Patient with no nasal drainage at this time. Patient is in the low allergy season at this time. Patient does have Dymista available and has responded in the past. Dymista as needed. 3. Lung nodule seen on imaging study R91.1 Plan Bilateral lung nodules have not changed compared to previous imaging studies. This has been followed for 1 year with no change. Repeat imaging would be indicated in August 2018. Patient was given a copy of the report Repeat CT scan August 2018 Plan Detail Other Medications Discontinued: prednisone take 4 tabs for three days, then 3 tabs for three days, then 10 mg PO QDAY 2 tabs for three days, then 1 tab for 3 days Discontinued Reason: Pt no longer taking Follow Up 6 Months (CSM) HPI 6 M FU: Chief Complaint: Chronic cough Details: Patient is a 42-year-old female, currently under the care of Dr. Subramanian, who presents for evaluation secondary to chronic cough. Since last visit, patient denies any ER visits, hospitalizations or prednisone burst. Patient does state that she presented to her primary care physician with acute bronchitis and was placed on codeine cough syrup and doxycycline. Patient feels she is back to her baseline, but states this took a long time. Patient reports that she has been using her Symbicort on a daily basis. Patient states that she tends to forget to use it at night and has noted no increase in cough nocturnally. Patient feels I do not know that I needed. Patient denies any complications such as thrush, hoarseness or sore throat leading to noncompliance. Patient feels that the allergy burden is improved and that is why she is doing better. Patient denies any current weight loss, hemoptysis, chest pain, nausea or vomiting. Patient did have her CT scan without issues and states that she was feeling well on the day of imaging. Patient has not been using any nasal sprays and denies any nasal congestion or watery eyes. Patient states that classically she has difficulty in the spring and fall. Patient does report compliance with Claritin and Singulair therapy. Testing personally reviewed with the patient CT chest (08/19/2017): Stable small micronodules in the left upper and right upper lobe. Intake Vital Signs08/25/17 Height 5 ft 1 in 08/25/17 Weight: 100.244 kg Intake Visit Reasons: 6 M FU Paper Feeder Required: No Accompanied by: Self Is patient in pain?: No Allergies amoxicillin [From Augmentin] Allergy (Severe, Verified 08/25/17 14:12) unknown clavulanic acid [From Augmentin] Allergy (Severe, Verified 08/25/17 14:12) unknown levofloxacin [From Levaquin] Allergy (Severe, Verified 08/25/17 14:12) Unknown sulfamethoxazole [From Bactrim] Allergy (Severe, Verified 08/25/17 14:12) unknown trimethoprim [From Bactrim] Allergy (Severe, Verified 08/25/17 14:12) unknown Sulfa (Sulfonamide Antibiotics) Allergy (Unknown, Verified 08/25/17 14:12) Unknown Medications albuterol sulfate HFA 90 mcg/actuation aerosol inhaler 2 puff INHALATION Q4H PRN g 02/14/17 [History Confirmed 08/25/17] azelastine-fluticasone 137 mcg-50 mcg/spray nasal spray 1 spray INTRANASAL Q12H #23 g 02/14/17 [Rx Confirmed 08/25/17] budesonide-formoterol HFA 160 mcg-4.5 mcg/actuation aerosol inhaler 2 puff INHALATION Q12H 02/14/17 [History Confirmed 08/25/17] montelukast 10 mg tablet 10 mg PO QHS 02/14/17 [History Confirmed 08/25/17] loratadine 10 mg tablet 10 mg PO QDAY 08/25/17 [History Confirmed 08/25/17] [facility] Medical History Abnormal pulmonary function test (Acute) Dyspnea (Acute) Hoarseness (Acute) Migraine (Acute) Sinusitis (Acute) Sore throat (Acute) Wheezing (Acute) Allergic rhinitis (Chronic) Bronchitis (Chronic) Chronic cough (Chronic) Cough (Chronic) Hyperlipidemia (Chronic) Lung nodule (Chronic) Obesity (Chronic) Surgical History H/O foot surgery (Resolved) Previous section (Resolved) tubal ligation and ablasion (Resolved) Family History Grandmother Breast cancer Father Heart disease Social History Smoking Status: Former smoker quit date: 02/10/94 pack-years: 5 second hand exposure: No alcohol intake: never substance use type: does not use Review of Systems Const CONSTITUTIONAL: Negative anorexia, body ache, chills, daytime sleepiness, fever(s), night sweats, oral thrush, stops breathing during sleep, weight loss, sleeping in chair, fatigue, weight loss, weight gain, frequent colds, seasonal allergies, other, headache(s) or orthopnea EETM Ear Nose Throat Mouth: Positive hearing normal; negative hard of hearing, hoarseness, dry mouth in morning, change in vision, itchy eyes, eye pain, swallowing Difficulty, ear pain, nose bleed, headache(s), mouth pain, nasal congestion, nasal discharge, post nasal drip, sinus pain, sinus pressure, sore throat or other Cardio Cardiovascular: Negative chest pain, chest pain at rest, chest pain with activity, irregular heart rhythm, edema, shortness of breath when lying down, palpitations, murmur or other Resp Respiratory: Positive as per HPI; negative shortness of breath, pain with cough, wheezing, chest congestion, cough, chest tightness, pain on inspiration, inhalers, increase use of rescue inhalers, snoring, apnea or other Gastro Gastrointestional: Negative bloody stools, change in appetite, difficulty swallowing, reflux, hematemesis, melena stool, loose stool, constipation or other Genitourinary: Negative blood in urine, nocturia, pain with urination or other Musc Musculoskeletal: Negative body pain, back pain, neck pain or other Skin/Breast Skin/Breast: Negative dry skin, itching, rash, unusual bruising, breast lump or other Neuro Neurological: Negative restless legs, confusion, weakness or other Psych Psychocological: Negative abnormal sleep pattern, anxiety, thoughts of hurting self/others, hopelessness or other Lymph Lymphatic: Negative easy bleeding, easy bruising, swollen lymph nodes or other Exam Const Constitutional: Positive conversant, cooperative, in no acute respiratory distress, healthy appearing, well developed, well nourished, good hygiene and obese; negative ill appearing or dyspenic Head Head: Positive normocephalic and atraumatic; negative cyanosis of lips/distal nose, microcephalic, macrocephalic, maxillary sinus tenderness or frontal sinus tenderness Eyes Eye: Positive clear conjunctiva; negative nystagmus or scleral abnormality Ears Ear: Positive hearing normal and external ears normal; negative hard of hearing Nose Nose: Positive external nose normal, septum normal and no nasal discharge; negative epistaxis or nasal polyp Mouth Mouth: Positive oral mucosae normal, no lesions, good dentition and crowded posterior oropharynx; negative post nasal drip, malodorous breath or oral thrush present Mallampati Score: III: Mallampati Score Neck Neck: Positive normal visual inspection, thick neck, full ROM and trachea midline; negative lymphadenopathy or JVD Chest Wall Chest: Positive normal inspection of the chest; negative increased A/P diameter, symmetric chest movement, crepitus or tenderness Resp lung sounds: Positive clear to auscultation, good air exchange, normal expiratory time and normal respiratory effort; negative wheezes, rhonchi, rales, dullness to percussion or wheeze present on forced exhalation Cardio Cardiac: Positive regular rate, regular rhythm, S1 normal and S2 normal; negative murmur, rub or gallop GI GI: Positive obese, normal to inspection and normal bowel sounds; negative distended or ascites Genitourinary: Positive deferred Musc Musculoskeletal: Positive steady gait and ROM normal; negative using an assistive device for ambulation, kyphosis or scoliosis Skin Pulmonary Skin Exam: Positive intact; negative rash, lesion, ulcers, erythema or dermal atrophy Pulses Pulse: Yes radial pulses present Extremities Extremities: Yes capillary refill normal, No clubbing, No cyanosis, No edema, No stasis dermatitis Neuro Neurologic: Yes conversant, Yes no focal neuro deficits, Yes normal coordination, Yes normal concentration, Yes cooperative, Yes understands questions, Yes normal cognition Lymph Lymphatic: No lymphadenopathy Psych Appearance: Positive grossly normal Mental Status: Positive mental status grossly normal Mood: Positive congruent mood Affect: Positive normal affect Coding Level of Care Code Off vis,est,level 3 Diagnoses Cough R05 PND (post-nasal drip) R09.82 Lung nodule seen on imaging study R91.1 08/25/17 1517 <Electronically signed by Valentin Cruz MD> Date Valentin Cruz MD Cosigner Signature: Date (if applicable) CC: Jc Subramanian MD CHEST WITHOUT Observed: 08/19/2017 Status: F Source: [place] CONTRAST 12:00 AM [facility] [place] Imaging Services [address] [place] [address] Chest without Contrast MR#: [id number] Acct: [id number] Name: SURAJ HAWK Rep #: [id number] : 1975 F 42 From: David Abdi DO PCP: Jc Subramanian MD Status: REG CLI Study: Chest without Contrast Date of Exam: 08/19/17 Exam# [id number] Ordering Dr: Valentin Cruz MD STUDY: CT CHEST WITHOUT CONTRAST REASON FOR EXAM: Female, 42 years old. Follow-up of nodule RADIATION DOSAGE (If Supplied By Facility): CTDIvol = ( 15.74 ) mGy, DLP = ( 507.48 ) mGycm TECHNIQUE: Transaxial imaging was performed without the administration of intravenous contrast material. Individualized dose optimization techniques were used for this CT. COMPARISON: 02/14/2017 FINDINGS: Small intrafissural nodule in the left lung apex is unchanged at 4 mm. 2 other small pleural-based nodules along the right upper lobe are also unchanged. Lungs are clear. No new masses or nodules. The lungs are normal. There is no demonstrated pleural abnormality. Normal heart and pericardium. Normal mediastinum. Normal hilar regions. Normal unenhanced pulmonary arteries. Normal aorta arch and descending thoracic aorta. Normal osseous structures. There is no demonstrated abnormality of the visualized upper abdomen. CT/Chest without Contrast IMPRESSION: Lungs are adequately inflated and clear. Stable small micronodules in the left upper lobe and right upper lobe. Recommend repeat exam in one year. Electronically Signed: David Abdi DO at 15:51 EDT Tel , Service support , CC: Valentin Cruz MD; Jc Subramanian MD Blood Donor Recruiter Supervisor: Signed IGP W/HPV RFX Collected: 08/06/2017 Status: F Source: [facility] [id number] 4:59 PM [facility] REPOSITORY Order Comment: Thin Prep. LMP 06-02-2017 TYPE CODE TESTS RESULT OUT OF RANGE REFERENCE UNITS LAB [id number]( INC) Normal See Ref Lab Diagnosis: Report Performed By: #### [id number] #### [place] [address] PATHOLOGY ([facility]) Observed: 08/06/2017 Status: F Source: [facility] 12:00 AM REPOSITORY FINAL GYNECOLOGIC CYTOLOGY REPORT [id number] SPECIMEN ADEQUACY Satisfactory for Evaluation. No endocervical cells/transformation zone component present. GENERAL CATEGORIZATION Negative for Intraepithelial Lesion or Malignancy CLINICAL HISTORY LMP: 06/02/2017 SPECIMEN (A) SCREENING CERVICAL/ENDOCERVICAL THIN PREP VIAL Performed at [facility], [address] [place] [address] Screened by: Signed Out by: MANE PAYNE Lead Data Entry Operator Reported: 08/11/2017 Performed By: #### SEALER AIRCRAFT #### [facility] [address] [place] [address] XR CHEST 2 VIEWS Observed: 07/21/2017 Status: F Source: [place] 5:12 PM [facility] REPOSITORY Exam Date/Time: 07/21/2017 17:17 EDT Reason for Exam: Cough Report STUDY: XR Chest 2 Views; 07/21/2017 5:17 pm INDICATION: Cough. COMPARISON: Chest x-ray 04/03/2016, 12/30/2015 ACCESSION NUMBER(S): [id number] ORDERING CLINICIAN: Awilda Alvarez FINDINGS: Small nodules in the right suprahilar region are stable. Otherwise the lungs are clear without pleural effusion. Normal heart size, mediastinum, lani, and pulmonary vasculature. IMPRESSION: No new active disease in the chest. FINAL REPORT Dictated: 07/21/2017 6:01 pm Benigno Estrada MD Signed (Electronic Signature): 07/21/2017 6:01 pm Signed by: Benigno Estrada MD Technologist: [facility] CBC W/ AUTO DIFF Collected: 06/09/2017 Status: F Source: [facility] 7:10 AM [facility] REPOSITORY TYPE CODE TESTS RESULT OUT OF RANGE REFERENCE UNITS LAB 80459521(L 3.6-11.0 E3/mcL OINC) Normal WBC 5.7 LAB 02819147(L 3.90-5.40 E6/mcL OINC) Normal RBC 4.43 LAB 21668283(L 12.0-16.0 G/DL OINC) Normal Hgb 12.5 LAB 97038331(L 36.0-48.0 % OINC) Normal Hct 37.5 LAB 40121648(L 11.5-14.5 % OINC) Normal RDW 13.9 LAB 86119644(L 27.0-31.0 pg OINC) Normal MCH 28.2 LAB 05203149(L 33.0-37.0 G/DL OINC) Normal MCHC 33.3 LAB 12068613(L 78.0-100.0 fL OINC) Normal MCV 84.7 LAB 12362321(L 7.4-11.0 fL OINC) Normal MPV 9.1 LAB 71061066(L 130-400 E3/mcL OINC) Normal Platelet 195 Performed By: #### [id number] #### ANNA RemHemo [address] [place] [address] AUTO DIFF Collected: 06/09/2017 Status: F Source: [facility] 7:10 AM [facility] REPOSITORY Order Comment: Order Added by Discern Expert. TYPE CODE TESTS RESULT OUT OF RANGE REFERENCE UNITS LAB [id number](L 37.0-75.0 % OINC) Normal Neutro Auto 58.7 LAB 73941546(L 20.0-55.0 % OINC) Normal Lymph Auto 33.3 LAB 22870543(L 0.0-10.0 % OINC) Normal [place] Auto 4.0 LAB 86782718(L 0.0-11.0 % OINC) Normal Eos Auto 2.9 LAB 13403233(L 0.0-2.0 % OINC) Normal Basophil Auto 1.1 LAB 20854671(L 1.4-6.5 E3/mcL OINC) Normal Neutro 3.3 Absolute LAB 06633688(L 1.2-3.4 E3/mcL OINC) Normal Lymph Absolute 1.9 LAB 35196381(L 0.0-0.7 E3/mcL OINC) Normal [place] Absolute 0.2 LAB 16431757(L 0.0-0.7 E3/mcL OINC) Normal Eos Absolute 0.2 LAB 38434692(L 0.0-0.2 E3/mcL OINC) Normal Basophil 0.1 Absolute Performed By: #### [id number] #### ANNA RemHemo [address] [place] [address] BHCG QUAL Collected: 06/09/2017 Status: F Source: [facility] 7:10 AM [facility] REPOSITORY TYPE CODE TESTS RESULT OUT OF RANGE REFERENCE UNITS LAB 68210126(LO Negative INC) Normal Beta Negative hCG Ql Performed By: #### [id number] #### ANNA Chemistry Manual [address] [place] [address] PULMONARY VISIT REPORT Observed: 03/11/2017 Status: F Source: [place] 5:57 AM [facility] [place] [facility] [place] [address] [place] [address] OFFICE VISIT Date of Service: 03/10/17 MR#: [id number] Acct: [id number] Name: SURAJ HAWK Rep #: [id number] : 1975 Provider: Valentin Cruz MD Age/Sex: 41/F Location: [facility] Status: Signed Assessment AND Plan 1. PND (post-nasal drip) R09.82 Plan Patient appears to have responded nicely to therapy for postnasal drip as related to productive cough. Patient is currently discontinued therapy. Did discuss with patient the signs and symptoms that would lead to reinitiation of therapy. Patient understands that recurrence of the cough for more than 24-48 hours would lead to a need for resumption of Dymista. Patient should continue baseline medications with Claritin, Singulair and allergy shots. Dymista as needed. 2. Cough R05 Plan Patient does have a history of a negative methacholine challenge in the past, making asthma highly unlikely. Clinical suspicion is for allergy mediated postnasal drip that appears to respond well to Dymista therapy. Patient does have scattered areas of groundglass opacities on CT scan of the chest. Autoimmune phenomenon cannot be excluded, but given improvement with Dymista therapy and lack of other constitutional symptoms, patient has not been initiated on an autoimmune workup. Dymista as needed. Possible autoimmune workup in the future. 3. Lung nodule seen on imaging study R91.1 Plan Patient does have several peripherally based pleural nodules noted on CT scan of the chest. These do not appear to be malignant on my review. Patient also has areas of scattered groundglass opacities. This is grossly unchanged compared to previous CT that was completed in outside hospital. After review of the risks, benefits and alternatives, patient has agreed to serial CT scans. Next CT scan would be indicated in 6 and 18 months respectively. If clinically stable, this would complete patients radiologic surveillance. Previous pulmonary function tests do show preservation of function. Repeat CT scan in 6 months prior to next visit. Orders Orders: Plan Detail Follow Up 6 Months (BWA) HPI 6 M FU: Chief Complaint: chronic cough Details: Patient is a 41-year-old female who presents for evaluation secondary to chronic cough. Since my last visit, patient has been seen by nurse practitioner twice, both in December and February secondary to paroxysmal type cough. Patient was placed on prednisone both times and Dymista on the last visit. Patient reports that the Dymista had significant improvement in cough. Patient states that she discontinued this approximately 2 weeks ago secondary to overwhelming nasal dryness. Patient has not had any cough since that time. Patient also reports that she had a balloon sinus plasty on January 24 and thinks that this may be helpful by Dr. Monroy and ENT. Patient overall feels subjectively improved compared to previous visit. Patient continues to have a periodic intermittent dry cough on a daily basis. However, patient states this is typically short and not invasive. Patient denies any associated chest pain, abdominal pain, nausea or vomiting. No lower extremity edema has been noted. Patient denies any hemoptysis, unintentional weight loss or wheezing. Patient denies any migratory joint pains. Patient continues to use Claritin, Singulair and Symbicort on a daily basis. Patient denies any complications with therapy including thrush, hoarseness or sore throat. Patient continues to get allergy shots. Imaging personally reviewed with the patient CT chest (02/14/2017): Sporadic emphysematous changes with subtle patchy areas of groundglass and streaky platelike subsegmental atelectasis. Patient does have a 1.7 cm anterior lymph node and several peripherally located less than 1 cm nodules. Intake Vital Signs03/10/17 Height 5 ft 1 in 03/10/17 Weight: 101.605 kg Intake Visit Reasons: 6 M FU Allergies amoxicillin [From Augmentin] Allergy (Severe, Verified 02/14/17 14:14) unknown clavulanic acid [From Augmentin] Allergy (Severe, Verified 02/14/17 14:14) unknown levofloxacin [From Levaquin] Allergy (Severe, Verified 02/14/17 14:14) Unknown sulfamethoxazole [From Bactrim] Allergy (Severe, Verified 02/14/17 14:14) unknown trimethoprim [From Bactrim] Allergy (Severe, Verified 02/14/17 14:14) unknown Medications albuterol sulfate HFA 90 mcg/actuation aerosol inhaler 2 puff INHALATION Q4H PRN g 02/14/17 [History Confirmed 02/14/17] azelastine-fluticasone 137 mcg-50 mcg/spray nasal spray 1 spray INTRANASAL Q12H #23 g 02/14/17 [Rx Confirmed 02/14/17] budesonide-formoterol HFA 160 mcg-4.5 mcg/actuation aerosol inhaler 2 puff INHALATION Q12H 02/14/17 [History Confirmed 02/14/17] cetirizine 10 mg capsule 10 mg PO QDAY 02/14/17 [History Confirmed 02/14/17] levonorgestrel 0.15 mg-ethinyl estradiol 0.03 mg tablet 1 tab PO QDAY 02/14/17 [History Confirmed 02/14/17] montelukast 10 mg tablet 10 mg PO QHS 02/14/17 [History Confirmed 02/14/17] niacin ER 1,000 mg tablet,extended release 24 hr 1,000 mg PO QHS 02/14/17 [History Confirmed 02/14/17] prednisone 10 mg tablet 10 mg PO QDAY #30 tab 02/14/17 [Rx Confirmed 02/14/17] [facility] Medical History Abnormal pulmonary function test (Acute) Dyspnea (Acute) Hoarseness (Acute) Migraine (Acute) Sinusitis (Acute) Sore throat (Acute) Wheezing (Acute) Allergic rhinitis (Chronic) Bronchitis (Chronic) Chronic cough (Chronic) Cough (Chronic) Hyperlipidemia (Chronic) Lung nodule (Chronic) Obesity (Chronic) Surgical History H/O foot surgery (Resolved) Previous section (Resolved) Family History Grandmother Breast cancer Father Heart disease Social History Smoking Status: Former smoker quit date: 02/10/94 pack-years: 5 second hand exposure: No alcohol intake: never substance use type: does not use Review of Systems Const CONSTITUTIONAL: Negative anorexia, body ache, chills, daytime sleepiness, fever(s), night sweats, oral thrush, stops breathing during sleep, weight loss, sleeping in chair, fatigue, weight loss, weight gain, frequent colds, seasonal allergies, other, headache(s) or orthopnea EETM Ear Nose Throat Mouth: Positive hearing normal; negative hard of hearing, hoarseness, dry mouth in morning, change in vision, itchy eyes, eye pain, swallowing Difficulty, ear pain, nose bleed, headache(s), mouth pain, nasal congestion, nasal discharge, post nasal drip, sinus pain, sinus pressure, sore throat or other Cardio Cardiovascular: Negative chest pain, chest pain at rest, chest pain with activity, irregular heart rhythm, edema, shortness of breath when lying down, palpitations, murmur or other Resp Respiratory: Positive as per HPI; negative shortness of breath, pain with cough, wheezing, chest congestion, cough, chest tightness, pain on inspiration, inhalers, increase use of rescue inhalers, snoring, apnea or other Gastro Gastrointestional: Negative bloody stools, change in appetite, difficulty swallowing, reflux, hematemesis, melena stool, loose stool, constipation or other Musc Musculoskeletal: Negative body pain, back pain, neck pain or other Skin/Breast Skin/Breast: Negative dry skin, itching, rash, unusual bruising, breast lump or other Neuro Neurological: Negative restless legs, confusion, weakness or other Psych Psychocological: Negative abnormal sleep pattern, anxiety, thoughts of hurting self/others, hopelessness or other Lymph Lymphatic: Negative easy bleeding, easy bruising, swollen lymph nodes or other Exam Const Constitutional: Positive conversant, cooperative, in no acute respiratory distress, healthy appearing, well developed, well nourished, good hygiene and obese Head Head: Positive normocephalic and atraumatic; negative cyanosis of lips/distal nose, microcephalic, macrocephalic, frontal sinus tenderness or maxillary sinus tenderness Eyes Eye: Positive clear conjunctiva; negative nystagmus or scleral abnormality Ears Ear: Positive hearing normal and external ears normal; negative hard of hearing Nose Nose: Positive external nose normal and no nasal discharge; negative epistaxis or nasal polyp Mouth Mouth: Positive oral mucosae normal, no lesions and good dentition; negative post nasal drip, malodorous breath or oral thrush present Mallampati Score: III: Mallampati Score Neck Neck: Positive normal visual inspection, thick neck, full ROM and trachea midline; negative lymphadenopathy or JVD Chest Wall Chest: Positive normal inspection of the chest; negative increased A/P diameter, symmetric chest movement, crepitus or tenderness Resp lung sounds: Positive clear to auscultation, good air exchange and normal expiratory time; negative wheezes, rhonchi, rales or wheeze present on forced exhalation Cardio Cardiac: Positive regular rate, regular rhythm, S1 normal and S2 normal; negative murmur, rub or gallop GI GI: Positive obese, normal to inspection and normal bowel sounds; negative distended or ascites Genitourinary: Positive deferred Musc Musculoskeletal: Positive steady gait and ROM normal; negative using an assistive device for ambulation, kyphosis or scoliosis Skin Pulmonary Skin Exam: Positive intact; negative rash, lesion, ulcers, erythema or dermal atrophy Pulses Pulse: Yes radial pulses present Extremities Extremities: Yes capillary refill normal, No clubbing, No cyanosis, No edema Neuro Neurologic: Yes conversant, Yes no focal neuro deficits, Yes cooperative, Yes normal cognition, Yes normal coordination, Yes normal concentration, Yes understands questions Lymph Lymphatic: No lymphadenopathy, No tenderness, No cervical adenopathy, No axillary adenopathy Psych Appearance: Positive grossly normal, eye contact and well kempt Mental Status: Positive mental status grossly normal Mood: Positive congruent mood Affect: Positive normal affect Coding Level of Care Code Off vis,est,level 4 Diagnoses PND (post-nasal drip) R09.82 Cough R05 Lung nodule seen on imaging study R91.1 03/11/17 0557 <Electronically signed by Valentin Cruz MD> Date Valentin Cruz MD Cosigner Signature: Date (if applicable) CC: JC SUBRAMANIAN ALLERGIES ALLERGIES DATE TYPE / NAME / CODE REACTION SEVERITY SOURCE CODE 12/15/2017 Drug clavulanic Unknown [place] Allergy/41 acid/[id number](RXNORM [facility] [id number]) Repository 12/15/2017 Drug sulfamethoxazole/F0060 Unknown [place] Allergy/41 05192(RXNORM) Community 0700737([facility] OMED CT) Repository 12/15/2017 Drug trimethoprim/N16251758 Unknown [place] Allergy/41 3(RXNORM) Community 3371836([facility] CT) Repository 12/15/2017 Drug amoxicillin/N391671271 Unknown [place] Allergy/41 (RXNORM) Community 8727247([facility] OMED CT) Repository 12/15/2017 Drug levofloxacin/G93155200 Unknown [place] Allergy/41 9(RXNORM) Community 5421016([facility] OMED CT) Repository 12/15/2017 Drug Sulfa (Sulfonamide Unknown Unknown [place] Allergy/41 Antibiotics)/H04862416 Community 7134673([facility](RXNORM) Hospital OMED CT) Repository 09/28/2015 Drug SULFA (SULFONAMIDE [facility] Class/4195 ANTIBIOTICS) Three 48193(SNOM Repository ED CT) Drug/82354 sulfamethoxazole 8464393 [facility] 1003([facility] D [facility]) System Repository Environmen Environmental allergy [id number] [facility] t/43199343 [facility] 6(SNOMED System CT) Repository Drug/31693 sulfamethoxazole [facility] 1003([facility] D [facility]) System Repository Drug/48238 Augmentin [id number] [facility] 1003([facility] D CT) System Repository Drug/83188 Bactrim chills, [facility] 1003([facility] D CT) System Repository Drug/89234 Levaquin [id number] [facility] 1003([facility] D CT) System Repository ENCOUNTERS ENCOUNTERS ADMIT/DISCHARGE ACCOUNT NUMBER ADMITTING ENCOUNTER LOCATION SOURCE CLASS 02/26/2018/02/26/19 [id number] Ambulatory BMSBuilding: [place] 19 BMS.PMW [facility] Repository 01/23/2018/01/24/20 [id number] Ambulatory [facility] Repository om: Room 6 01/20/2018 [id number] Amb[place] [facility] ding:LAB Repository 12/25/2017 [id number] Ambulatory [address] [place] [address] Repository 12/23/2017/12/24/19 [id number] [facility], [address] ding:[facility] System Repository 12/23/2017 [id number] Ambulatory [address] [place] [address] Repository 12/19/2017/12/20/[id number] System :[facility] Repository om: Room 5 12/17/2017 [id number] [facility] Repository 12/17/2017/12/18/[id number] ding:[facility] Repository 12/17/2017 [id number] Ambulatory [address] [place] [address] Repository 12/15/2017/12/16/19 [id number] Ambulatory BMSBuilding: [place] 18 BMS.[facility] Repository 12/13/2017/12/14/[id number] [address] ding:[facility] System Repository 12/13/2017 [id number] Ambulatory [address] [place] [address] Repository 12/05/2017/12/06/[id number] System :[facility] Repository om: Room 5 12/02/2017/12/03/19 [id number] Ambulatory BMSBuilding: [place] 18 BMS.[facility] Repository 10/24/2017 [id number] Ambulatory [address] [place] [address] ([place]) Repository 10/06/2017/10/07/19 [id number] Ambulatory Building:[address] Repository 09/20/2017/09/21/19 [id number] Radha Meneses [address] ding:[facility] Repository 09/20/2017 [id number] Ambulatory [address] [place] [address] Repository 09/08/2017/09/09/[id number] ding:[facility] Repository 09/08/2017 [id number] Ambulatory [facility] Repository 08/25/2017/08/26/19 [id number] Ambulatory BMSBuilding: [place] 18 BMS.[facility] Repository 08/19/2017 [id number] Ambulatory [place] [facility] [facility] ding:CT Repository 08/18/2017/08/19/19 [id number] Ambulatory [address] Health System :[facility] Repository 08/06/2017/08/07/[id number] ding:[facility] Repository 08/06/2017/08/07/[id number] :[facility] Repository om: Room 5 08/06/2017 [id number] Ambulatory [address] [place] [address] Repository 07/21/2017/07/22/19 [id number] Awilda Alvarez [address] ding:[facility] Repository 07/21/2017/07/22/19 [id number] Awilda Alvarez Ambulatory [address] [facility] racRoom: Room 2 07/21/2017 [id number] Ambulatory [address] [place] [address] Repository 06/27/2017/06/28/[id number] System :[facility] Repository om: Room 5 06/12/2017/06/13/[id number] [facility], Ambulatory [address] Regional ding[facility] Repository 06/09/2017/06/10/19 [id number] [facility], [facility] [address] [facility] Regional ding[facility] Repository 05/20/2017/05/21/19 [id number] [place], Ambulatory [address] Regional ding[facility] Repository 05/20/2017/05/21/19 [id number] Ambulatory [address] System :[facility] Repository om: Room 5 05/13/2017/05/14/19 [id number] Ambulatory [address] System :[facility] Repository om: Room 6 05/02/2017 [id number] Ambulatory [address] [place] [address] ([place]) Repository 03/10/2017/03/10/19 [id number] Ambulatory BMSBuilding: [place] 18 BMS.W [facility] Repository PAYERS PAYERS ENCOUNTER GUARANTOR PAYER SUBSCRIBER SOURCE 02/26/2018 SURAJ L Primary SURAJ L [place] [id number] Insurance:ANTHEMPolic NEBERGALLDOB: General acute hospital y Number: [id number] Hospital BOX [id number] Repository [address] [place] [address], Date:5928-34-31AI [facility] [address]Qcr: [id number], [place] [address]ZP: [phone] 02/26/2018 Secondary NOT GIVENUNK [place] Insurance:SELF PAY [facility] Number: Effective Repository Date:2018-02-19 01/20/2018 SURAJ L Primary SURAJ L [place] [id number] N Insurance:ANTHEMPolic NEBERGALLDOB: General acute hospital y Number: [id number] BOX [id number] Repository [address] [place] [address], Date:5090-56-21QT BOX [place] [address]Ned: [id number], [place] [address]KY: [phone] () [phone] 01/20/2018 Secondary NOT GIVENUNK [place] Insurance:SELF PAY [facility] Number: Effective Repository Date:2018-01-20 12/25/2017 SURAJ Primary SURAJ [employer] NEBERGALLDOB: Insurance:AnthemPolic NEBERGALLDOB: Hospitals [id number] BOX y Number: [id number] Repository [address] [place], [place] [id number] BOX [place] [id number]: Date:Plan Name:[address], [place] [id number]: (HP) (HP) 12/23/2017 [facility]AnthemPolic NEBERGALLDOB: Hospitals [id number] BOX y Number: [id number] Repository [address] [place], [place] [id number] BOX [place] [id number]: Date:Plan Name:[address], [place] [id number]: (HP) (HP) 12/17/2017 SURAJ L Primary SURAJ L [place] [id number] N Insurance:ANTHEMPolic NEBERGALLDOB: Community MECHANICS STPO y Number: [id number] Hospital BOX [id number] Repository [address] [place] [address], Date:4379-38-49RD [place]OX [place] [address]Jbi: [id number], [place] [address]XE: [phone] 12/17/2017 Secondary NOT GIVENUNK [place] Insurance:SELF PAY [facility] Number: Effective Repository Date:2017-12-17 12/17/2017 SURAJ L Primary [facility] Insurance:AnthemPolic NEBERGALLDOB: [facility] [id number] BOX y Number: [id number] Repository [address] [place], [place] [id number] BOX [place] [id number]: Date:Plan Name:[address], [place] [id number]: (HP) (HP) 12/15/2017 SURAJ L Primary SURAJ L [place] [id number] N Insurance:ANTHEMPolic NEBERGALLDOB: Community MECHANICS STPO y Number: [id number] Hospital BOX [id number] Repository [address] [place] [address], Date:1850-25-15PK [place]OX [place] [address]Abp: [id number], [place] [address]XS: [phone]) (HP) [phone] 12/15/2017 Secondary NOT GIVENUNK [place] Insurance:SELF PAY [facility] Number: Effective Repository Date:2017-12-15 12/13/2017 SURAJ Primary [facility] NEBERGALLDOB: Insurance:AnthemPolic NEBERGALLDOB: Hospitals [id number] BOX y Number: [id number] Repository [address] [place], [place] [id number] BOX [place] [phone]: Date:Plan Name:[address], [place] [phone]: (HP) (HP) 12/02/2017 SURAJ L Primary SURAJ L [place] [id number] N Insurance:ANTHEMPolic [facility]DOB[facility]: [id number] [facility] BOX [id number] Repository [address] [place] [address], Date:6667-61-54NG [place]OX [place] [address]Wgq: [id number] [place] [address]AD: [phone] (HP) [phone] 12/02/2017 Secondary NOT GIVENUNK [place] Insurance:SELF PAY [facility] Number: Effective Repository Date:2017-12-02 10/06/2017 SURAJ L Primary SURAJ L [facility] NEBERGALLDOB: Insurance:ANTHEMPolic NEBERGALLDOB: [facility] Repository [id number] BOX y Number: [id number] [place] [id number] [address] [address] [facility] Date:9177-28-[facility] [id number] [place] [address]Gab: [id number]: (380) , [place] [address]Dyr: [phone] (HP) (HP) 09/20/2017 [facility] NEBERGALLDOB: Insurance:AnthemPolic NEBERGALLDOB: Hospitals [id number] BOX y Number: [id number] Repository [address] [place], [place] [id number] BOX [place] [id number]: Date:Plan Name:[address], [place] [phone]: () () 09/08/2017 SURAJ Primary [facility] University NEBERGALLDOB: Insurance:AnthemPolic NEBERGALLDOB: [facility] [id number] BOX y Number: [id number] Repository [address] [place], [place] [id number] BOX [place] [id number]: Date:Plan Name:[address], [place] [phone]: (HP) (HP) 08/25/2017 SURAJ L Primary SURAJ L [place] [id number] N Insurance:ANTHEMPolic NEBERGALLDOB: General acute hospital y Number: [id number] [facility] BOX [id number] Repository [address] [place] [address], Date:4356-18-36UC [facility] [address]Ogr: [id number], [place] [address]EG: [phone] 08/25/2017 Secondary NOT GIVENUNK [place] Insurance:SELF PAY [facility] Number: Effective Repository Date:2017-08-18 08/19/2017 SURAJ L Primary SURAJ L [place] [id number] N Insurance:ANTHEMPolic NEBERGALLDOB: General acute hospital y Number: [id number] [facility] BOX [id number] Repository [address] [place] [address], Date:7142-05-24PO [facility] [address]Zia: [id number], [place] [address]BV: [phone] () [phone] 08/19/2017 Secondary NOT GIVENUNK [place] Insurance:SELF PAY [facility] Number: Effective Repository Date:2017-03-10 08/18/2017 SURAJ L Primary SURAJ L [facility] NEBERGALLDOB: Insurance:1500 NEBERGALLDOB: [facility] [id number] BOX ANTHEMPolicy Number: [id number] System [id number] N FEATURE WRITER Effective [address] [address] Repository [place], [place] Date:2017-06-27 - FEATURE WRITER [id number]: 4059-38-[place], [place] Name:CD:[id number]: (HP) [address] [place] [address]WP: [phone]) (HP) [phone] (WP) 08/06/2017 SURAJ L Primary SURAJ L [facility] NEBERGALLDOB: Insurance:ANTHEMPolic NEBERGALLDOB: [facility] [id number] BOX y Number: Effective [id number] System [id number] N FEATURE WRITER Date:2017-06-09 - [address] [address] [place], [place] [id number] FEATURE WRITER [id number]: Name:[place], [place] [address] [place] [id number]: (HP) [id number]: [phone] (HP) (WP) 07/21/2017 SURAJ L Primary SURAJ L [facility] NEBERGALLDOB: Insurance:ANTHEMPolic NEBERGALLDOB: [facility] [id number] BOX y Number: Effective [id number] System [id number] N FEATURE WRITER Date:2017-07-21 - [address] [address] [place], [place] [id number] FEATURE WRITER [address]Gwv: Name:[place], [place] [address] [place] [address]Mle: (HP) 68[address]ZI: [phone] (HP) (WP) 07/21/2017 SURAJ L Primary SURAJ L [facility] NEBERGALLDOB: Insurance:1500 NEBERGALLDOB: [facility] [id number] BOX ANTHEMPolicy Number: [id number] System [id number] N FEATURE WRITER Effective [address] [place], [place] Date:2017-07-21 - FEATURE WRITER [address]Hvc: [id number] [place], [place] Name:CD:[id number] O [address]Ngd: (HP) [address] [place] [address]WP: [phone] (HP) [phone] (WP) 07/21/2017 SURAJ L [facility]:AnthemPolic NEBERGALLDOB: [facility] [id number] BOX y Number: [id number] [address] [id number] BOX [place] [id number]: Date:Plan Name:[address], [place] [phone]: (HP) (HP) 06/27/2017 SURAJ L [facility]1500 NEBERGALLDOB: [facility] [id number] BOX ANTHEMPolicy Number: [id number] System [id number] N FEATURE WRITER Effective [address] [address] [address] [place], [place] Date:2017-05-20 - FEATURE WRITER [id number]: [id number] [place], [place] Name:CD:[id number] O [id number]: (HP) [address] [place] [address]WP: [phone]) (HP) [phone] (WP) 06/12/2017 SURAJ L [facility]:ANTHEMPolic NEBERGALLDOB: [facility] [id number] BOX y Number: Effective [id number] System [id number] N FEATURE WRITER Date:2017-05-21 - [address] [address] [place], [place] 0668-94-37Ojho FEATURE WRITER [id number]: Name:[place] [address] [place] [id number]: (HP) [address]30[address]HF: [phone] (HP) (WP) 06/09/2017 SURAJ L Primary SURAJ L [employer] NEBERGALLDOB: Insurance:ANTHEMPolic NEBERGALLDOB: [facility] [id number] BOX y Number: Effective [id number] System [id number] N FEATURE WRITER Date:2017-06-09 - [address] [address] [place], [place] 8333-09-42Qezg FEATURE WRITER [id number]: Name:[place], [place] [address] [place] [id number]: (HP) [address]GA: [phone] (HP) (WP) 05/20/2017 SURAJ L Primary SURAJ L [facility] NEBERGALLDOB: Insurance:ANTHEMPolic NEBERGALLDOB: [facility] [id number] BOX y Number: Effective [id number] System [id number] N FEATURE WRITER Date:2017-05-20 - [address] [address] [place], [place] [id number] FEATURE WRITER [id number]: Name:[place], [place] [address] [place] [address] [place] [id number]: (HP) [address]40[address]LI: [phone] (HP) (WP) 05/20/2017 SURAJ L Primary SURAJ L [facility] NEBERGALLDOB: Insurance:1500 NEBERGALLDOB: [facility] [id number] BOX ANTHEMPolicy Number: [id number] System [id number] N FEATURE WRITER Effective [address] [address] [address] [place], [place] Date:2017-05-13 - FEATURE WRITER [id number]: [id number] [place] Name:CD:[id number] O [id number]: (HP) [address] [place] [address]WP: [phone]) (HP) [phone] (WP) 05/13/2017 SURAJ L Primary SURAJ L [facility]:1500 NEBERGALLDOB: [facility] [id number] BOX ANTHEMPolicy Number: [id number] System [id number] N FEATURE WRITER Effective [address] [address] [address] Repository [place], [place] Date:2017-05-13 - FEATURE WRITER [id number]: [id number], [place] Name:CD:[id number] O [id number]: () [address]WBLOBYE, [place] [address]WP: [phone]) (HP) [phone] (WP) 03/10/2017 SURAJ Primary SURAJ Mer [id number] N Insurance:ANTHEMPolic NEBERGALLDOB: 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
== END ==
PROVIDERS: Family Provider Family Medicine; PCP Family Medicine; Referring Provider Nurse Practitioner Acute Care; Visit Provider Nurse Practitioner Acute Care
DX: R05 Cough (principal)
CPT/HCPCS: 36415; 85025; 86003

== ENCOUNTER → 2018-07-28 08:28 | Outpatient (CLI) | payer BC, SELFPAY ==
[2018-05-21 14:08] VITALS: BMI 43.6
[2018-07-28 10:52] LABS: Absolute Lymphocyte Count 1.57 X10^3/ul (0.83-4.51); Absolute Neutrophil Count 2.6 X10^3/uL (2.0-7.7); Basophil# 0.02 X10^3/uL; Basophil% 0.4 % (0-1); Eosinophil# 0.24 X10^3/uL; Eosinophils% 4.9 % (0-5); Hematocrit 37.1 % (37-47); Hemoglobin 12.3 g/dl (12.0-15.0); Lymphocyte # 1.57 X10^3/ul (4.0); Lymphocyte % 32.2 % (19-41); Mean Corp Hgb Conc 33.2 g/gl (32-36); Mean Corpuscular Hgb 27.5 pg (27.0-32.0); Mean Platelet Vol. 10.8 fl (6.2-12.0); Monocyte# 0.38 X10^3/uL; Monocyte% 7.8 % (0-10); Neutrophil # 2.63 X10^3/uL (2.7-7.7); Neutrophil % 54.1 % (47-70); Platelet Count 223 K/mm3 (150-450); RBC Distribution Width CV 13.4 % (11.6-14.6); RBC Distribution Width SD 39.8 fl (35.1-43.9); Red Blood Count 4.47 M/mm3 (4.2-5.4); White Blood Count 4.9 K/mm3 (4.4-11.0)
[2018-07-28 10:55] LABS: POSITIVE COUNT NO; POSITIVE DIFFERENTIAL NO; POSITIVE MORPHOLOGY NO
[2018-07-28 11:04] LABS: AST(SGOT) 21 U/L (15-37); Alanine Aminotransfer ALT/SGPT 33 U/L (13-56); Albumin, Serum 3.5 g/dL (3.2-5.0); Alkaline Phosphatase 105 U/L (45-117); Anion Gap 8 (5-15); BUN 13 mg/dL (7-18); BUN/Creat Ratio 17.8 RATIO (10-20); Calcium,Total 9.3 mg/dL (8.5-10.1); Chloride 105 mmol/L (98-107); Creatinine, Serum 0.73 mg/dL (0.55-1.02); EST Glomerular Filtration Rate 92 mL/min (>60); Est Glom Filt Rate - Afr Amer 111 mL/min (>60); Globulin 4.2 g/dL (2.2-4.2); Glucose 94 mg/dL (74-106); Potassium 3.8 mmol/L (3.5-5.1); Protein, Total 7.7 g/dL (6.4-8.2); Sodium Level 142 mmol/L (136-145)
[2018-07-30 20:06] LABS: QNTFERON TB Mitogen Value > 10.00 IU/mL (.); QNTFERON TB Nil Value 0.01 IU/mL (.); QNTFERON TB1+ Ag Value 0.02 IU/mL (.); QNTFERON TB2+ Ag Value 0.01 IU/mL (.)
[2018-07-31 11:40] LABS: QNTIFERON TB Positive Criteria Negative (Negative)
== END ==
PROVIDERS: Family Provider Family Medicine; PCP Family Medicine; Referring Provider Dermatology Pediatric Dermatology; Visit Provider Dermatology Pediatric Dermatology
DX: L40.0 Psoriasis vulgaris (principal); L20.84 Intrinsic (allergic) eczema; Z79.899 Other long term (current) drug therapy
CPT/HCPCS: 36415; 80048; 80076; 85025; 86480

== ENCOUNTER → 2019-06-30 08:05 | Outpatient (CLI) | payer BC, SELFPAY ==
[2018-11-18 13:25] VITALS: BMI 44.7
[2019-07-03 03:07] LABS: QNTFERON TB Mitogen Value > 10.00 IU/mL (.); QNTFERON TB Nil Value 0.03 IU/mL (.); QNTFERON TB1+ Ag Value 0.03 IU/mL (.); QNTFERON TB2+ Ag Value 0.02 IU/mL (.)
[2019-07-04 01:12] LABS: QNTIFERON TB Positive Criteria Negative (Negative)
== END ==
PROVIDERS: PCP Family Medicine; Referring Provider Dermatology Pediatric Dermatology; Visit Provider Dermatology Pediatric Dermatology
DX: L40.0 Psoriasis vulgaris (principal); Z79.899 Other long term (current) drug therapy
CPT/HCPCS: 36415; 86480

== ENCOUNTER → 2020-06-19 08:10 | Outpatient (CLI) | payer OTHER, SELFPAY ==
[2019-11-29 12:38] VITALS: BMI 44.6
[2020-06-22 22:09] LABS: QNTFERON TB Mitogen Value > 10.00 IU/mL (.); QNTFERON TB Nil Value 0.03 IU/mL (.); QNTFERON TB1+ Ag Value 0 IU/mL (.); QNTFERON TB2+ Ag Value 0 IU/mL (.)
[2020-06-23 12:48] LABS: QNTIFERON TB Positive Criteria Negative (Negative)
== END ==
PROVIDERS: PCP Family Medicine; Referring Provider Dermatology Pediatric Dermatology; Visit Provider Dermatology Pediatric Dermatology
DX: L40.0 Psoriasis vulgaris (principal); B00.1 Herpesviral vesicular dermatitis; Z79.899 Other long term (current) drug therapy
CPT/HCPCS: 36415; 86480

== ENCOUNTER → 2021-06-18 | Outpatient (CLI) | payer BC, SELFPAY ==
[2021-06-21 10:09] LABS: QNTFERON TB Mitogen Value > 10.00 IU/mL (.); QNTFERON TB Nil Value 0.02 IU/mL (.); QNTFERON TB1+ Ag Value 0.02 IU/mL (.); QNTFERON TB2+ Ag Value 0.03 IU/mL (.)
[2021-06-21 12:10] LABS: QNTIFERON TB Positive Criteria Negative (Negative)
== END | disposition home or self-care (01) ==
LOC: MTLAB 08:23
PROVIDERS: PCP Family Medicine; Referring Provider Dermatology Pediatric Dermatology; Visit Provider Dermatology Pediatric Dermatology
DX: L40.0 Psoriasis vulgaris (principal); L20.89 Other atopic dermatitis; M12.9 Arthropathy, unspecified; D48.5 Neoplasm of uncertain behavior of skin; Z79.899 Other long term (current) drug therapy
CPT/HCPCS: 36415; 86480

== ENCOUNTER → 2022-06-10 | Outpatient (CLI) | payer BC, SELFPAY ==
[2022-06-12 12:08] LABS: QNTFERON TB Mitogen Value > 10.00 IU/mL (.); QNTFERON TB Nil Value 0.01 IU/mL (.); QNTFERON TB1+ Ag Value 0.02 IU/mL (.); QNTFERON TB2+ Ag Value 0.02 IU/mL (.); QNTIFERON TB Positive Criteria Negative (Negative)
== END | disposition home or self-care (01) ==
LOC: MTLAB 08:23
PROVIDERS: PCP Family Medicine; Referring Provider Dermatology Pediatric Dermatology; Visit Provider Dermatology Pediatric Dermatology
DX: L20.89 Other atopic dermatitis (principal); L40.0 Psoriasis vulgaris; M12.9 Arthropathy, unspecified; Z08 Encounter for follow-up examination after completed treatment for malignant neoplasm; Z79.899 Other long term (current) drug therapy; Z85.828 Personal history of other malignant neoplasm of skin
CPT/HCPCS: 36415; 86480

== ENCOUNTER → 2023-05-30 | Outpatient (CLI) | payer BC, OTHER, SELFPAY ==
--- NOTE | 2023-05-30 11:19 | RAD_ITS ---
STUDY: X-RAY - CERVICAL SPINE REASON FOR EXAM: Female, 47 years old. Fall TECHNIQUE: 3 view(s) of the cervical spine were obtained. COMPARISON: None FINDINGS: Normal anterior atlantoaxial articulation. Normal odontoid process. There is straightening of the normal cervical lordosis. This space narrowing and spondylosis at the C5-C6 and C6-C7 levels. Normal visualized intervertebral neuroforamina. The soft tissue structures are unremarkable. RAD/Cerv Spine 2 or 3 Views IMPRESSION: Spondylosis and disc space narrowing at the C5-C6 and C6-C7 levels. Electronically Signed: Avel Mccann MD at 12:43 EDT ,
--- NOTE | 2023-05-30 11:19 | RAD_ITS ---
STUDY: X-RAY - PELVIS AND RIGHT HIP REASON FOR EXAM: Female, 47 years old. Right-sided pain following a fall. TECHNIQUE: 3 views of the pelvis and hip. COMPARISON: None. FINDINGS: There is a non-specific bowel gas pattern. There are multiple calcified phleboliths. Bilateral tubal ligation clips. Normal bilateral iliac wings, sacroiliac joints and visualized sacrum. Normal bilateral superior and inferior pubic rami. Normal pubic symphysis. Normal bilateral ischial tuberosities. Normal visualized femoral head. Normal acetabulum. Normal hip joint. RAD/HIP, UNI W/ Pelvis 2-3 Views IMPRESSION: Normal x-ray examination of the pelvis and hip. Electronically Signed: Avel Mccann MD at 12:42 EDT ,
--- NOTE | 2023-05-30 11:19 | RAD_ITS ---
STUDY: X-RAY - RIGHT KNEE REASON FOR EXAM: Female, 47 years old. Abrasions following a fall. TECHNIQUE: 4 view(s) of the knee. COMPARISON: None. FINDINGS: Normal visualized distal femur. Normal visualized proximal tibia and fibula. Normal proximal tibiofibular articulation. 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 Normal lateral femorotibial compartment. There is moderate degenerative arthrosis of the patellofemoral articulation. Small joint effusion RAD/Knee 4 or More Views IMPRESSION: Degenerative arthrosis. Small joint effusion. Electronically Signed: Avel Mccann MD at 12:40 EDT ,
--- NOTE | 2023-05-30 11:19 | RAD_ITS ---
STUDY: X-RAY - RIGHT SHOULDER REASON FOR EXAM: Female, 47 years old. Pain following a fall. TECHNIQUE: 4 view(s) of the shoulder. COMPARISON: None. FINDINGS: Normal glenohumeral articulation. Normal acromioclavicular joint. Normal acromion. Normal humeral head and visualized proximal humerus. The soft tissue structures are unremarkable. Normal visualized pulmonary apex. RAD/Shoulder min 2 Views IMPRESSION: Normal x-ray examination of the shoulder. Electronically Signed: Avel Mccann MD at 12:41 EDT ,
--- NOTE | 2023-05-30 11:19 | RAD_ITS ---
STUDY: X-RAY - LUMBAR SPINE REASON FOR EXAM: Female, 47 years old. Back pain following a fall. TECHNIQUE: 4 view(s) of the lumbar spine were obtained including oblique views. COMPARISON: None FINDINGS: Normal lumbar lordosis. There is no substantial scoliosis. There is a normal alignment of the vertebrae. Normal vertebral bodies and endplates. Mild degree of disc space narrowing at the L5-S1 level. The soft tissue structures are unremarkable. RAD/L/S Spine Min 4 Views IMPRESSION: Mild degree of disc space narrowing at the L5-S1 level. Electronically Signed: Avel Mccann MD at 12:42 EDT ,
== END | disposition home or self-care (01) ==
LOC: MTRAD 11:19
PROVIDERS: PCP Family Medicine; Referring Provider Physician Assistant Surgical; Visit Provider Physician Assistant Surgical
DX: S16.1XXA Strain of muscle, fascia and tendon at neck level, initial encounter (principal); S39.012A Strain of muscle, fascia and tendon of lower back, initial encounter; S76.019A Strain of muscle, fascia and tendon of unspecified hip, initial encounter; S40.011A Contusion of right shoulder, initial encounter; S80.01XA Contusion of right knee, initial encounter; W19.XXXA Unspecified fall, initial encounter
CPT/HCPCS: 72040; 72110; 73030; 73502; 73564

== ENCOUNTER → 2023-06-09 | Outpatient (CLI) | payer BC, SELFPAY ==
[2023-06-12 12:09] LABS: QNTFERON TB Mitogen Value > 10.00 IU/mL (.); QNTFERON TB Nil Value 0.02 IU/mL (.); QNTFERON TB1+ Ag Value 0.03 IU/mL (.); QNTFERON TB2+ Ag Value 0.02 IU/mL (.); QNTIFERON TB Positive Criteria Negative (Negative)
== END | disposition home or self-care (01) ==
PROVIDERS: PCP Family Medicine; Referring Provider Dermatology Pediatric Dermatology; Visit Provider Dermatology Pediatric Dermatology
DX: L40.0 Psoriasis vulgaris (principal); Z79.899 Other long term (current) drug therapy
CPT/HCPCS: 36415; 86480

== ENCOUNTER → 2023-11-18 | Outpatient (CLI) | payer BC, SELFPAY ==
[2023-11-18 12:30] LABS: Erythrocyte Sedimentation Rate 9 mm/hr (0-30)
[2023-11-18 12:37] LABS: Absolute Neutrophil Count 2.4 X10^3/uL (2.0-7.7); Basophil# 0.11 X10^3/uL; Basophil% 2.1 % (0-1); Eosinophil# 1.11 X10^3/uL; Eosinophils% 21.1 % (0-5); Hematocrit 40.8 % (37-47); Lymphocyte % 24.7 % (19-41); Mean Corp Hgb Conc 31.9 g/dL (32-36); Mean Corpuscular Hgb 27.2 pg (27.0-32.0); Mean Corpuscular Volume 85.4 fL (81-99); Mean Platelet Vol. 10.6 fl (6.2-12.0); Monocyte# 0.36 X10^3/uL; Monocyte% 6.8 % (0-10); NRBC Flagged by Analyzer 0 % (0-5); Neutrophil # 2.37 X10^3/uL (2.7-7.7); Neutrophil % 44.9 % (47-70); Platelet Count 251 K/mm3 (150-450); RBC Distribution Width CV 15.5 % (11.6-14.6); RBC Distribution Width SD 48.5 fl (35.1-43.9); Red Blood Count 4.78 M/mm3 (4.2-5.4); White Blood Count 5.3 K/mm3 (4.4-11.0)
[2023-11-18 13:16] LABS: Color, Urine Yellow (Yellow); Glucose, Dipstick Normal (Normal); Ketone-Dipstick Negative (Negative); Leukocyte Esterase-Dipstick 25 /ul (Negative); Nitrite-Dipstick Negative (Negative); Occult Blood-Urine Negative /ul (Negative); Protein-Dipstick Negative (Negative); Specific Gravity, Urine 1.015 (1.002-1.030); Urine Bilirubin Dipstick Negative (Negative); Urine Clarity Sl. Cloudy (Clear); Urine Urobilinogen Normal (Normal)
[2023-11-18 13:34] LABS: ALB/GLOB Ratio 0.8 RATIO (0.9-2.4); AST(SGOT) 82 U/L (15-37); Alanine Aminotransfer ALT/SGPT 97 U/L (13-56); Albumin, Serum 3.4 g/dL (3.2-5.0); Alkaline Phosphatase 93 U/L (45-117); Anion Gap 8 (5-15); BUN 11 mg/dL (7-18); CPK Total, Creatine Kinase 98 U/L (26-192); CRP 5.15 mg/L (0.0-3.0); Calcium,Total 9.8 mg/dL (8.5-10.1); Chloride 108 mmol/L (98-107); Creatinine, Serum 0.65 mg/dL (0.55-1.02); EST Glomerular Filtration Rate 103 mL/min (>60); Est Glom Filt Rate - Afr Amer 124 mL/min (>60); Globulin 4.2 g/dL (2.2-4.2); Glucose 78 mg/dL (74-106); Potassium 4.6 mmol/L (3.5-5.1); Protein, Total 7.6 g/dL (6.4-8.2); Sodium Level 140 mmol/L (136-145)
[2023-11-18 13:35] LABS: Protein, Urine (Random) 10.1 mg/dL (<11.9); Protein:Creat Ratio 115 mg/g CRE (0-200)
[2023-11-19 14:10] LABS: Aldolase 10.8 U/L (3.3-10.3); CCP IgG Antibodies 11 units (0-19)
== END | disposition home or self-care (01) ==
PROVIDERS: PCP Family Medicine; Referring Provider Internal Medicine Rheumatology; Visit Provider Internal Medicine Rheumatology
DX: M62.82 Rhabdomyolysis (principal); L40.59 Other psoriatic arthropathy; M17.11 Unilateral primary osteoarthritis, right knee; L40.8 Other psoriasis
CPT/HCPCS: 36415; 80053; 81002; 82085; 82550; 82570; 84156; 85025; 85652; 86140; 86200; 86431

== ENCOUNTER → 2024-06-28 | Outpatient (CLI) | payer BC, SELFPAY ==
[2024-06-28 10:07] LABS: Absolute Lymphocyte Count 2.07 X10^3/uL (0.83-4.51); Absolute Neutrophil Count 2.7 X10^3/uL (2.0-7.7); Basophil# 0.05 X10^3/uL; Basophil% 0.9 % (0-1); Eosinophil# 0.31 X10^3/uL; Eosinophils% 5.6 % (0-5); Hematocrit 38.4 % (37-47); Hemoglobin 12.5 g/dL (12.0-15.0); Lymphocyte # 2.07 X10^3/ul (0.83-4.51); Lymphocyte % 37.7 % (19-41); Mean Corp Hgb Conc 32.6 g/dL (32-36); Mean Corpuscular Hgb 27.5 pg (27.0-32.0); Mean Corpuscular Volume 84.6 fL (81-99); Monocyte# 0.32 X10^3/uL; Monocyte% 5.8 % (0-10); NRBC Flagged by Analyzer 0 % (0-5); Neutrophil # 2.71 X10^3/uL (2.7-7.7); Neutrophil % 49.5 % (47-70); Platelet Count 221 K/mm3 (150-450); RBC Distribution Width CV 13.3 % (11.6-14.6); RBC Distribution Width SD 41.1 fl (35.1-43.9); Red Blood Count 4.54 M/mm3 (4.2-5.4); White Blood Count 5.5 K/mm3 (4.4-11.0)
[2024-06-28 10:46] LABS: ALB/GLOB Ratio 1.2 RATIO (0.9-2.4); AST(SGOT) 21 U/L (<=31); Alanine Aminotransfer ALT/SGPT 16 U/L (<=34); Albumin, Serum 4.2 g/dL (3.5-5.0); Alkaline Phosphatase 94 U/L (35-104); Anion Gap 9 (5-15); BUN 18 mg/dL (4-19); BUN/Creat Ratio 23.7 RATIO (10-20); CPK Total, Creatine Kinase 77 U/L (24-195); Calcium,Total 9.3 mg/dL (7.6-11.0); Carbon Dioxide 24.2 mmol/L (21.0-32.0); Chloride 105 mmol/L (98-108); Creatinine, Serum 0.75 mg/dL (0.70-1.20); EST Glomerular Filtration Rate 97 (>60); Globulin 3.4 g/dL (2.2-4.2); Glucose 81 mg/dL (70-99); Potassium 4.9 mmol/L (3.3-5.1); Protein, Total 7.6 g/dL (5.9-8.4); Sodium Level 138 mmol/L (133-145); Total Bilirubin 0.26 mg/dL (0.00-1.30)
== END | disposition home or self-care (01) ==
LOC: MTLAB 07:53
PROVIDERS: PCP Family Medicine; Referring Provider Internal Medicine Rheumatology; Visit Provider Internal Medicine Rheumatology
DX: M17.11 Unilateral primary osteoarthritis, right knee (principal); L40.59 Other psoriatic arthropathy; M62.82 Rhabdomyolysis; M79.7 Fibromyalgia; L40.8 Other psoriasis
CPT/HCPCS: 36415; 80053; 82550; 85025

== ENCOUNTER → 2024-08-04 | Outpatient (CLI) | payer BC, SELFPAY ==
--- OUTSIDE RECORDS SUMMARY | 2024-08-04 07:30 | XMS RPT_ITS | CCD ---
Author Organization [facility] Care Team Providers Care Career Development Associate Name Role Phone Chiquita Potts L Unavailable Unavailable Yensho CEMENT SIDE LASTER, Rabia A Unavailable Unavailab le Ely Pottsica L Unavailable Unavailable RAEDY, ALEXANDRA Unavailable Unavailable RAEDY, ALEXANDRA Unavailable Unavailable UNKNOWN, PROVIDER Unavailable Unavailable DIMITRY SUBRAMANIAN Unavailable Unavailable Ayla Subramanian Unavailable Unavailab adela Unavailable Primary Care Provider UnavailAyla Callejas Primary Care Provider Lisy Staton Unavailable Unavailable Lisy Staton D Unavailable Unavailable Dimitry Subramanian L Unavailable Unavailable Dimitry Subramanian Unavailable Unavailable Lisy Staton Unavailable Unavailable Dimitry Subramanian Primary Care Provider Jerson Luciano II Unavailable Unavailable Kingsley Hutchins Unavailable Unavailable Nuzhat Shaw Unavailable Unavailable Dimitry Subramanian Primary Care Provider [phone] Forrest Zuñiga Unavailable Unavailable Unavailable Forrest Zuñiga Unavailable Unavail able Gaston Verde Unavailable Unavailable Jerson Luciano Unavailable Kingsley Hutchins Unavailable Unavailable Unavailable Dimitry Subramanian MD Primary Care Provider JACLYN MENESES Attending UnavailAYLA Callejas Primary Care Unavailab Ayla Coulter MD Primary Care Provider Dimitry Subramanian MD Primary Care Provider Mr. Star Pelaez Attending Unavailable Dr. Forrest Zuñiga [facility] Primary Care Unavailable Tasha, Ms. Elina Lambert Referring Unavaila aurelio Cordova, Ms. Elina Lambert Attending Unavailgordon Zuñiga, Dr. Forrest Pendleton Primary Care Unavailable Yogesh, Dr. Forrest Pendleton Primary Care Unavailable Kingsley Hutchins Referring Unavailable Kingsley Hutchins Attending Unavailable Yogesh, Dr. Forrest Pendleton Primary Care Unavailable Kingsley Blum Attending Unavailable Yogesh NEAL MPH, Forrest Gandhi Primary Care Pro vider Paul ROGER-Elif LOPEZ Unavailable [phone] Dr. Dimitry Subramanian Primary Care Provider Dr. Dimitry Subramanian Referring Provider [phone] KATHY Gallardo Attending Provider Bridger Edouard MD Primary Care Provider Venancio RN, Itzel Unavailable Unavailable Venancio RN, Itzel Unavailable Unavailable Venancio RN, Itzel Unavailable Unavailable Paul ROGER-JOHN, Elif Murray Unavailable Unava ilable Bridger Edouard MD Primary Care Provider Dimitry Subramanian MD Primary Care Provider [phone] Paul ROGER-JOHN, Elif Murray Unavailable Unava ilable GOLDEN MARADIAGA Referring Unavailable EDOUARD, BRIDGER O Primary Care Unavailable EDOUARD, BRIDGER O Referring Unavailable EDOUARD, BRIDGER O Primary Care Unavailable LETICIA JAUREGUI Attending Unavailable LETICIA JAUREGUI Referring Unavailable EDOUARD, BRIDGER O Primary Care Unavailable EDOUARD, BRIDGER O Primary Care Unavailable PURNIMA PIÑA Attending Unavailable EDOUARD, BRIDGER O Primary Care Unavailable STEPHEN DOOLEYRE Admitting Unavailable KEENA DOOLEY Attending Unavailable JUSTIN BAZZI Consulting Unava ilable EDOUARD, BRIDGER O Primary Care Unavailable RONY MONTIEL Admitting Unavailable RONY MONTIEL Attending Unavailable DEBBY FAJARDO Consulting Unavailable KINGSLEY HUTCHINS Referring Unavailable EDOUARD, BRIDGER O Primary Care Unavailable ANETTE RUBIO Attending Unavailable EDOUARD, BRIDGER O Referring Unavailable EDOUARD, BRIDGER O Primary Care Unavailable EDOUARD, BRIDGER O Referring Unavailable EDOUARD, BRIDGER O Primary Care Unavailable EDOUARD, BRIDGER O Referring Unavailable EDOUARD, BRIDGER O Primary Care Unavailable EDOUARD, BRIDGER O Referring Unavailable EDOUARD, BRIDGER O Primary Care Unavailable EDOUARD, BRIDGRE O Referring Unavailable EDOUARD, BRIDGER O Primary Care Unavailable EDOUARD, BRIDGER O Referring Unavailable EDOUARD, BRIDGER O Primary Care Unavailable EDOUARD, BRIDGER O Referring Unavailable EDOUARD, BRIDGER O Primary Care Unavailable ANETTE RUBIO Attending Unavailable EDOUARD, BRIDGER O Referring Unavailable EDOUARD, BRIDGER O Primary Care Unavailable EDOUARD, BRIDGER O Referring Unavailable EDOUARD, BRIDGER O Primary Care Unavailable ANETTE RUBIO Attending Unavailable EDOUARD, BRIDGER O Referring Unavailable EDOUARD, BRIDGER O Primary Care Unavailable ANETTE RUBIO Attending Unavailable EDOUARD, BRIDGER O Referring Unavailable EDOUARD, BRIDGER O Primary Care Unavailable EDOUARD, BRIDGER O Primary Care Unavailable GASTON VERDE Attending Unavailable EDOUARD, BRIDGER O Referring Unavailable EDOUARD, BRIDGER O Primary Care Unavailable EDOUARD, BRIDGER O Referring Unavailable EDOUARD, BRIDGER O Primary Care Unavailable EDOUARD, BRIDGER O Referring Unavailable EDOUARD, BRIDGER O Primary Care Unavailable EDOUARD, BRIDGER O Referring Unavailable EDOUARD, BRIDGER O Primary Care Unavailable ANETTE RUBIO Attending Unavailable EDOUARD, BRIDGER O Referring Unavailable EDOUARD, BRIDGER O Primary Care Unavailable Marilynn NEAL, Dr. Moraes Primary Care Provider Dr. Loraine Mancilla MD Attending Provider Dr. Loraine Mancilla MD Referring Provider Dimitry Subramanian Primary Care Unavailable Marilynn, Dimitry Referring Unavailable Matilda Worthy NP Attending Unavailable Loraine Mancilla Attending Unavailable Loraine Mancilla Referring Unavailable Marilynn, Dimitry Primary Care Unavailable Loraine Mancilla Attending Unavailable Loraine Mancilla Referring Unavailable Marilynn, Dimitry Primary Care Unavailable Dimitry Subramanian MD Primary Care Provider MARILYNN, DIMITRY Primary Care Unavailable SELF, SELF Referring Unavailable JOSE ALVAREZ Attending Unavailable AHMAD, JOSE Attending Unavailable MARILYNN, DIMITRY Primary Care Unavailable SELF, SELF Referring Unavailable AHMAD, JOSE Attending Unavailable MARILYNN, DIMITRY Primary Care Unavailable SELF, SELF Referring Unavailable AHMAD, JOSE Attending Unavailable AHMAD, JOSE Referring Unavailable MARILYNN, DIMITRY Primary Care Unavailable Dimitry Subramanian MD Primary Care Provider ELIF MILLER Referring Unavailable EDOUARD, BRIDGER O Primary Care Unavailable EDOUARD, BRIDGER O Primary Care Unavailable EDOUARD, BRIDGER O Primary Care Unavailable EDOUARD, BRIDGER O Primary Care Unavailable EDOUARD, BRIDGER O Primary Care Unavailable EDOUARD, BRIDGER O Primary Care Unavailable EDOUARD, BRIDGER O Primary Care Unavailable LEB, GOLDEN B Referring Unavailable EDOUARD, BRIDGER O Primary Care Unavailable LEB, GOLDEN B Referring Unavailable EDOUARD, BRIDGER O Primary Care Unavailable LEB, GOLDEN B Referring Unavailable EDOUARD, BRIDGER O Primary Care Unavailable LEB, GOLDEN B Referring Unavailable EDOUARD, BRIDGER O Primary Care Unavailable LEB, GOLDEN B Referring Unavailable EDOUARD, BRIDGER O Primary Care Unavailable LEB, GOLDEN B Referring Unavailable MARILYNN, DIMITRY L Primary Care Unavailable RAEDY, ALEXANDRA Attending Unavailable MARILYNN, DIMITRY Primary Care Unavailable MARILYNN, DIMITRY Referring Unavailable RAEDY, ALEXANDRA Attending Unavailable MARILYNN, DIMITRY Primary Care Unavailable MARILYNN, DIMITRY Referring Unavailable MARILYNN, DIMITRY Primary Care Unavailable MARILYNN, DIMITRY Referring Unavailable RAEDY, ALEXANDRA Attending Unavailable EDOUARD, BRIDGER O Attending Unavailable EDOUARD, BRIDGER O Referring Unavailable EDOUARD, BRIDGER O Primary Care Unavailable EDOUARD, BRIDGER O Primary Care Unavailable ELIF MILLER Attending Unavailable ELIF MILLER Referring Unavailable EDOUARD, BRIDGER O Primary Care Unavailable KINGSLEY HUTCHINS Attending Unavailable EDOUARD, BRIDGER O Primary Care Unavailable EDOUARD, BRIDGER O Attending Unavailable EDOUARD, BRIDGER O Primary Care Unavailable EDOUARD, BRIDGER O Attending Unavailable EDOUARD, BRIDGER O Primary Care Unavailable DEBBY FAJARDO Attending Unavailable EDOUARD, BRIDGER O Primary Care Unavailable EDOUARD, BRIDGER O Attending Unavailable EDOUARD, BRIDGER O Primary Care Unavailable ELIF MILLER Attending Unavailable EDOUARD, BRIDGER O Primary Care Unavailable EDOUARD, BRIDGER O Attending Unavailable EDOUARD, BRIDGER O Referring Unavailable EDOUARD, BRIDGER O Primary Care Unavailable DIMITRY SUBRAMANIAN Attending Unavailable EDOUARD, BRIDGER O Primary Care Unavailable GOLDEN MARADIAGA Attending Unavailable EDOUARD, BRIDGER O Primary Care Unavailable GOLDEN MARADIAGA Attending Unavailable EDOUARD, BRIDGER O Primary Care Unavailable GOLDEN MARADIAGA Attending Unavailable EDOUARD, BRIDGER O Primary Care Unavailable GOLDEN MARADIAGA Attending Unavailable EDOUARD, BRIDGER O Primary Care Unavailable GOLDEN MARADIAGA Attending Unavailable EDOUARD, BRIDGER O Primary Care Unavailable DIMITRY SUBRAMANIAN Attending Unavailable EDOUARD, BRIDGER O Referring Unavailable DIMITRY SUBRAMANIAN L Primary Care Unavailable GOLDEN MARADIAGA Attending Unavailable DIMITRY SUBRAMANIAN L Primary Care Unavailable Allergies Allergy Classification Reported Allergen(s) Allergy Type Date of Onset Reaction(s) Facility nickel (3 sources) nickel Drug Allergy 01-18-20 23 [facility] Sulfonamides (antibiotic) (3 sources) Sulfamethoxazole; Translations: [sulfa] Drug Allergy 01-18-20 23 Anxiety, Dizziness, Other, Palpitations, Shortness of breath [address] Work Phone: (6 sources) amoxicillin / clavulanate Drug Allergy 06-07-19 16 nausea (pt unsure if this is an allergy), nausea [facility] Work Phone: (6 sources) levoFLOXacin Drug Allergy 06-07-19 16 Pt is unsure if this is an allergy [facility] Work Phone: (9 sources) sulfamethoxazole / trimethoprim; Translations: [BACTRIM] Drug Allergy 06-07-19 16 chills,headach e [facility] Work Phone: (3 sources) sulfamethoxazole / trimethoprim Drug Allergy 06-07-19 16 [facility] Work Phone: (12 sources) Sulfonamides (Antibiotic); Translations: [SULFA (SULFONAMIDE ANTIBIOTICS)] Propensity to adverse reactions to drug 09-28-19 16 Unknown [facility] Work Phone: (20 sources) nickel; Translations: [NICKEL] Drug Allergy 10-30-19 19 Rash [facility] (20 sources) Sulfonamides (Antibiotic); Translations: [sulfa] drug allergy Tachycardia [facility] Work Phone: (5 sources) Other allergy to substance Other [facility] Work Phone: (3 sources) Sulfonamides (Antibiotic) Propensity to adverse reactions to drug 11-02-19 17 [facility] (20 sources) nickel Drug Allergy Rash [address] Work Phone: (1 source) Sulfamethizole Drug Allergy Other [facility] (1 source) Metals/Minerals Other, Hives/Urticari a [facility] (1 source) Amoxicillin Drug Allergy 11-30-19 21 unknown [facility] Work Phone: (1 source) Clavulanate Drug Allergy 11-30-19 21 unknown [facility] Work Phone: (2 sources) levoFLOXacin Drug Allergy 06-07-19 16 Unknown, Other [facility] (5 sources) Sulfamethoxazole Drug Allergy 11-30-19 21 unknown [facility] (6 sources) Trimethoprim Drug Allergy 05-22-19 19 Unknown [facility] (10 sources) nickel sulfate Drug Allergy 10-30-19 19 [facility] (20 sources) Sulfonamides (Antibiotic) Propensity to adverse reactions to drug 09-28-19 16 Anxiety, Dizziness, Other, Palpitations, Shortness of breath [facility] (4 sources) Phentermine Drug Allergy 01-23-20 24 [facility] (2 sources) Atogepant Propensity to adverse reactions to drug 01-23-20 24 [facility] (1 source) nickel Drug Allergy 12-11-19 24 [facility] (1 source) Sulfamethoxazole Drug Allergy 12-11-19 24 [facility] (1 source) Sulfonamides (Antibiotic) Drug allergy (disorder) 12-11-19 24 [facility] (1 source) Trimethoprim Drug Allergy 12-11-19 24 [facility] (2 sources) Atogepant Propensity to adverse reactions to drug 01-23-20 24 [facility] Medications Current Medications Medication Drug Class(es) Dates Sig (Normalized) Sig (Original) Acetaminophen (5 sources) Start: 10-27-2023 take 1 tablet by mouth every four hours as needed acetaminophen (Tylenol) tablet 650 mg Start: 10-26-2023 End: 10-26-2023 take 975 mg by mouth once as needed for pain 975 mg, oral, Once, On 10/26/23 at 2320, For 1 dose, If ordered PRN for pain, nurse is permitted to administer this medication for higher pain scores based on patient preference? Yes Start: 10-18-2023 take 1 tablet by miguel th every four hours as needed 650 mg, oral, Every 4 hours PRN, pain mild (1-3), first line, Starting on 10/18/23 at 0207, If ordered PRN for pain, nurse is permitted to administer this medication for higher pain scores based on patient preference? Yes Start: 02-12-2023 End: 02-12-2023 acetaminophen (Tylenol) tabl et 650 mg Start: 02-08-2023 End: 02-08-2023 acetaminophen (Tylenol) tabl et 975 mg Airsupra 90-80 mcg/actuation inhaler (17 sources) Start: 12-12-2023 take 2 puff(s) by inhalation three times daily as needed Airsupra 90-80 mcg/actuation inhaler Inhale 2 puffs 3 times a day as needed. 12/12/2023 Active albuterol 0.833 mg/ml / ipratropium bromide 0.167 mg/ml inhalation solution (19 sources) Anticholinergi c, beta2-Adrenerg ic Agonist Start: 01-23-2024 ipratropium-albuter oL (Duo-Neb) 0.5-2.5 mg/3 mL nebulizer solution Indications: Bronchitis Take 3 mL by nebulization 4 times a day. 90 mL 01/23/2024 Active Start: 02-13-2023 End: 01-23-2024 ipratropium-albuteroL (Duo-N eb) 0.5-2.5 mg/3 mL nebulizer solution Take 3 mL by nebulization 3 times a day. 02/13/2023 01/23/2024 Discontinued (Reorder) Start: 01-17-2016 End: 02-28-2016 IPRATROPIUM-ALBUTEROL 0.5-2. 5 (3) MG/3ML SOLN 1 ampule every 6 hours IPRATROPIUM-ALBUTEROL [id number] Chiquita Vásquez CEMENT SIDE LASTER Albuterol-Budesonide (Airsupra) 90-80 mcg/actuation HFA aerosol inhaler (1 source) Start: 12-11-2023 Albuterol-Budesonide (Airsupra) 90-80 mcg/actuation HFA aerosol inhaler Active 2 NMA INHALATION THREE TIMES A DAY as needed for shortness of breath 10.7 December 11, 2023 12:00am as a single dose; may repeat up to 6 doses per day (12 inhalations) amoxicillin 875 mg / clavulanate 125 mg oral tablet (20 sources) Penicillin-class Antibacterial Start: 01-23-2024 take 1 tablet by mouth twice daily amoxicillin-pot clavulanate (Augmentin) 875-125 mg tablet Indications: Bronchitis Take 1 tablet (875 mg) by mouth 2 times a day. 14 tablet 01/23/2024 Active Start: 10-29-2023 End: 10-30-2023 take 1 tablet by mouth twice daily amoxicillin-pot clavulanate (Augmentin) 875-125 mg tablet Indications: Traumatic rhabdomyolysis, subsequent encounter Take 1 tablet by mouth 2 times a day for 1 day. 2 tablet 10/29/2023 10/30/2023 Active Start: 02-08-2023 End: 02-08-2023 amoxicillin-pot clavulanate (Augmentin) 875-125 mg per tablet 875 mg Start: 11-28-2021 End: 02-07-2022 Amoxicillin-Pot Clavulanate (Augmentin) 500-125 mg tablet Discontinued 1 {tbl} PO Q12H November 28, 2021 12:00am February 07, 2022 1:43pm Start: 11-15-2020 End: 07-03-2021 take 1 tablet by mouth once daily Amoxicillin-Pot Clavulanate 875-125 MG Oral Tablet TAKE 1 TABLET EVERY 12 HOURS DAILY. Quantity: 14 Refills: 1 Ordered: 03-Jul-2021 Yogesh NEAL, MPH, Forrest Mayen Start : 03-Jul-2021 Active Start: 02-18-2019 take 1 tablet by miguel th once daily Amoxicillin-Pot Clavulanate 875-125 MG Oral Tablet TAKE 1 TABLET EVERY 12 HOURS DAILY. Quantity: 14 Refills: 0 Lisy Flowers Start : 18-Feb-2019 Active Start: 12-30-2016 End: 02-18-2023 Amoxicillin-Pot Clavulanate 875-125 mg tablet Discontinued 1 {tbl} PO TWICE A DAY February 07, 2022 1:00am November 26, 2022 7:06am Comment on above: Finish all this medi cation unless otherwise directed by prescriber.Take with food or milk. atogepant (Qulipta) 60 mg tablet tablet (2 sources) End: 10-23-2023 atogepant (Qulipta) 60 mg tablet tablet 1 tablet (60 mg) once daily. 10/23/2023 Discontinued (Therapy completed) atogepant (Qulip ta) 60 mg tablet tablet 1 tablet (60 mg) once daily. Active azelastine hydrochloride 0.137 mg/actuat / fluticasone propionate 0.05 mg/actuat metered dose nasal spray (20 sources) Corticosteroid, Histamine-1 Receptor Antagonist Start: 12-11-2023 Azelastine-Fluticasone 137-50 mcg/spray spray,non-aerosol Active 1 NMA INTRANASAL TWICE A DAY December 11, 2023 12:00am administer into each nostril Start: 11-27-2022 take 1 spray(s) nasa l route twice daily as needed for rhinitis azelastine-fluticasone (Dymista) 137-50 mcg/spray nasal spray Administer 1 spray into each nostril 2 times a day as needed for rhinitis. 11/27/2022 Active Start: 02-02-2019 Dymista 137-50 MCG/ACT Nasal Suspension Quantity: 23 Refills: 0 DO Start : 02-Feb-2019 Active Start: 02-14-2017 End: 05-30-2023 Azelastine-Fluticasone (Dymi sta) 137-50 mcg/spray spray,non-aerosol Discontinued 1 NMA INTRANASAL Q12H November 26, 2022 7:20am May 30, 2023 10:53am administer into each nostril Start: 02-14-2017 End: 05-30-2023 take 1 spray(s) nasal route every twelve hours azelastine-fluticasone (Dymista) 137-50 mcg/spray nasal spray INSTILL 1 SPRAY INTO EACH NOSTRIL EVERY 12 HOURS 11/27/2022 Active azithromycin 250 mg oral tablet (16 sources) Macrolide Antimicrobial Start: 01-14-2024 End: 01-23-2024 azithromycin (Zithromax Z-Tomás) 250 mg tablet Indications: Acute bronchitis, unspecified organism Take 2 tablets (500 mg) on Day 1, followed by 1 tablet (250 mg) once daily on Days 2 through 5. 6 tablet 01/14/2024 01/23/2024 Discontinued (Therapy completed) Start: 01-31-2022 End: 03-14-2023 azithromycin (Zithromax) 250 mg tablet take 2 tablets by mouth TODAY then take 1 tablet DAILY FOR 4 DAYS 0 02/05/2022 03/14/2023 Discontinued (Therapy completed) Start: 01-17-2016 End: 01-26-2016 AZITHROMYCIN 250 MG TABS 2 t ablets by mouth today and then 1 tablet daily for the next 4 days AZITHROMYCIN [id number] Chiquita Vásquez LPN BD Tuberculin Syringe 1 mL 2 7 x 1/2 syringe (6 sources) Start: 10-21-2022 End: 06-18-2023 BD Tuberculin Syringe 1 mL 2 7 x 1/2 syringe USE 2 SYRINGES ONCE A WEEK DIRECTED - 1 SYRINGE FOR EACH VIAL 10/21/2022 06/18/2023 Discontinued (Therapy completed) Start: 10-21-2022 BD Tuberculin Syringe 1 mL 27 x 1/2 syringe USE 2 SYRINGES ONCE A WEEK DIRECTED - 1 SYRINGE FOR EACH VIAL 0 10/21/2022 Active Bimekizumab-Bkzx (1 source) Start: 12-11-2023 Bimekizumab-Bk zx (Bimzelx Autoinjector) 160 mg/mL auto-injector Active 320 mg SC every 8 weeks December 11, 2023 12:00am bimekizumab-bkzx 160 mg/mL auto-injector (20 sources) bimekizumab-bkzx 160 mg/mL auto-injector Inject 320 mg under the skin every 8 (eight) weeks. Last had 3-4 weeks ago Active bimekizumab-bkzx 160 mg/mL auto-injector Inject 320 mg under the skin every 8 (eight) weeks. Active black cohosh extract 80 mg oral capsule (1 source) BLACK COHOSH ORA L Take 80 mg by mouth . 0 Active brompheniramine maleate 0.4 mg/ml / dextromethorphan hydrobromide 2 mg/ml / pseudoephedrine hydrochloride 6 mg/ml oral solution (1 source) alpha-Adrenergic Agonist, Uncompetitive L-hgwifu-S-aspartate Receptor Antagonist, Sigma-1 Agonist Start: 12-17-19 take 5 mL by mouth every four to six hours brompheniramine/pse udoephedrine/dextro methorphan [id number]/5 mL oral syrup ; 5 milliliter(s) orally every 4 to 6 hours, As Needed Quantity: 120 Refills: 0 Ordered: 17-Dec-2019 Trevin Ferrell Start: 17-Dec-2019 Status: Other Generic Substitution Allowed Comments: May cause drowsiness. Alcohol may intensify this effect. Use care when operating dangerous machinery.Obtain medical advice before taking any non-prescription drugs as some may affect the action of this medication. Comment on above: May cause drowsiness . Alcohol may intensify this effect. Use care when operating dangerous machinery.Obtain medical advice before taking any non-prescription drugs as some may affect the action of this medication. Budesonide-Formoterol Fumarate (SYMBICORT IN) (12 sources) Budesonide-Formo ter ol Fumarate (SYMBICORT IN) take by inhalation. Active Budesonide-Formo terol Fumarate (SYMBICORT IN) take by inhalation. 0 Active calcium chloride 0.0014 meq/ml / potassium chloride 0.004 meq/ml / sodium chloride 0.103 meq/ml / sodium lactate 0.028 meq/ml injectable solution (1 source) Start: 07-25-2023 take 20 mL intravenously every hour 20 mL/hr, intravenous, Continuous, Starting on Fri07/25/23 at 0915, Preprocedure cefTRIAXone 1000 mg injection (1 source) Cephalosporin Antibacterial Start: 10-28-2023 End: 10-31-2023 1 g, intravenous, at 100 mL/hr, Administer over 30 Minutes, Every 24 hours, First dose on Fri10/28/23 at 1000, For 3 doses, premix bag, Suspected Indication (Select all that apply): Urinary Tract Infection, Type of Therapy: Empiric, Type of Urinary Tract Infection: Uncomplicated, Indications: Urinary Tract Infection Coenzyme Q10 (COQ10 PO) (12 sources) Coenzyme Q10 (COQ10 PO) Take by mouth. Active Coenzyme Q10 (CO Q10 PO) Take by mouth. 0 Active Coenzyme Q10 (CO Q10 PO) take by mouth. 0 Active doxycycline hyclate 100 mg oral capsule (4 sources) Tetracycline-class Drug Start: 02-13-2023 End: 02-23-2023 doxycycline (Vibramycin) 100 mg capsule Indications: Acute bronchitis, unspecified organism Take 1 capsule (100 mg) by mouth 2 times a day for 10 days. Take with at least 8 ounces (large glass) of water, do not lie down for 30 minutes after 20 capsule 0 02/13/2023 02/23/2023 Active Start: 02-23-2019 take 1 tablet by miguel once daily Doxycycline Hyclate 100 MG Oral Tablet TAKE 1 TABLET EVERY 12 HOURS DAILY. Quantity: 14 Refills: 0 Lisy Flowers Start : 23-Feb-2019 Active eletriptan 40 mg oral tablet (20 sources) Serotonin-1b and Serotonin-1d Receptor Agonist Start: 03-26-2024 End: 07-23-2024 eletriptan (Relpax) 40 MG tablet 1 po prn migraine may repeat ONCE in 2 hours if necessary 9 tablet 6 07/23/2024 Active Start: 04-25-2023 End: 01-23-2024 eletriptan (Relpax) 40 MG ta blet 1 po prn migraine may repeat ONCE in 2 hours if necessary 9 tablet 03/26/2024 Active Start: 01-28-2019 Eletriptan Hyd robromide 40 MG Oral Tablet Quantity: 9 Refills: 0 Ordered: 28-Jan-2019 DO Start : 28-Jan-2019 Active Start: 10-24-2017 End: 03-14-2023 eletriptan (Relpax) 40 mg ta blet Take by mouth. 0 01/28/2019 03/14/2023 Discontinued (Therapy completed) End: 10-06-2017 ELETRIPTAN HBR (RELPAX ORAL) Take 1 capsule by mouth as needed. 10/06/2017 Discontinued ELETRIPTAN HBR ( RELPAX ORAL) Take 1 capsule by mouth as needed. Active 0.4 ml enoxaparin sodium 100 mg/ml prefilled syringe (1 source) Low Molecular Weight Heparin Start: 10-27-2023 inject 40 mg by subcutaneous injection every twelve hours 40 mg, subcutaneous, Every 12 hours scheduled, First dose on 10/27/23 at 0900 folic acid 1 mg oral tablet (3 sources) Start: 07-07-2024 take 1 tablet by mouth in the morning folic acid (Folvite) 1 mg tablet Take 2 tablets (2 mg) by mouth early in the morning.. 07/07/2024 Active 1 ml heparin sodium, porcine 5000 unt/ml injection (1 source) Unfractionated Heparin, Anti-coagulant Start: 10-18-2023 inject 7500 [IU] by subcutaneous injection every eight hours 7,500 Units, subcutaneous, Every 8 hours scheduled, First dose on Fri10/18/23 at 0600 homatropine methylbromide 0.3 mg/ml / HYDROcodone bitartrate 1 mg/ml oral solution (2 sources) Opioid Agonist, Cholinergic Muscarinic Agonist Start: 02-08-2023 End: 02-13-2023 hydrocodone-homat ropine (Hycodan) 5-1.5 mg/5 mL syrup Indications: URI, acute Take 5 mL by mouth every 6 hours if needed for cough for up to 5 days. 100 mL 0 02/08/2023 02/13/2023 Active 1 ml ixekizumab 80 mg/ml auto-injector (20 sources) Interleukin-17A Antagonist Start: 01-30-2019 End: 06-18-2023 ixekizumab (Taltz Autoinjector) 80 mg/mL injection Inject under the skin. 01/30/2019 06/18/2023 Discontinued (Therapy completed) lamoTRIgine 25 mg oral tablet (2 sources) Mood Stabilizer, Anti-epileptic Agent Start: 01-13-2017 take 1 tablet by mouth once in the evening, then take 2 tablets by mouth once in the evening, then take 3 tablets by mouth once in the evening, then take 4 tablets by mouth once in the evening lamoTRIgine 25 MG Tab 1 po q pm for one week, then 2 po q pm for one week, then 3 po q pm for one week, then 4 po q pm. STOP for rash 100 tablet 4 01/13/2017 Active Levonorgestrel-Eth inyl Estrad (LILLOW PO) (12 sources) Levonorgestrel-E t hinyl Estrad (LILLOW PO) Take by mouth. Active Levonorgestrel-E thinyl Estrad (LILLOW PO) Take by mouth. 0 Active loratadine 10 mg oral tablet (20 sources) Start: 08-25-2017 End: 03-14-2023 take 1 tablet by mouth once daily Loratadine (Claritin) 10 mg tablet Active 10 mg PO daily August 25, 2017 12:00am Loratadine (CLAR ITIN PO) take by mouth. Active End: 03-14-2023 loratadine (Claritin Liqui-G el) 10 mg capsule Take by mouth. 0 03/14/2023 Discontinued (Therapy completed) Claritin CAPS Qu antity: 0 Refills: 0 Ordered: 31-Jan-2022 DO Active Allergy Relief ; injection from ent wkly Quantity: 0 Refills: 0 Ordered: 04-Dec-2019 Ramin Marvin Generic Substitution Allowed Claritin CAPS Re fills: 0 DO Active Claritin CAPS Re fills: 0 Active Loratadine (CLAR ITIN PO) take by mouth. 0 Active magnesium hydroxide 240 mg/ml oral suspension (1 source) Start: 10-18-2023 take 10 mL by mouth every twenty-four hours as needed melatonin 3 mg oral tablet (1 source) Start: 10-27-2023 methotrexate 2.5 mg oral tablet (2 sources) Folate Analog Metabolic Inhibitor Start: 07-07-2024 take 4 tablets by mouth every week methotrexate (Trexall) 2.5 mg tablet take 4 tablets by mouth every week 07/07/2024 Active Methotrexate, Anti-Rheumatic, (methotrexate, M-1806,) 2.5 mg tablet (1 source) take 1 tablet by mouth every week Methotrexate, Anti-Rheumatic, (methotrexate, M-1806,) 2.5 mg tablet Take 1 tablet by mouth once a week. Active methylPREDNISolone (10 sources) Corticosteroid Start: 01-14-2024 End: 01-23-2024 methylPREDNISolone (Medrol Dospak) 4 mg tablets Indications: Acute bronchitis, unspecified organism Take as directed on package. 21 tablet 01/14/2024 01/23/2024 Discontinued (Therapy completed) Start: 01-14-2024 methylPREDNISo lone (Medrol Dospak) 4 mg tablets Indications: Acute bronchitis, unspecified organism Take as directed on package. 21 tablet 01/14/2024 Active Start: 05-30-2023 End: 06-05-2023 take 1 tablet by mouth once Methylprednisolone (Medrol (Tomás)) 4 mg tablets,dose pack Discontinued 4 mg PO per package directions 21 May 30, 2023 12:00am June 04, 2023 12:00am June 05, 2023 12:06am Start: 02-13-2023 End: 03-14-2023 methylPREDNISolone (Medrol, Tomás,) 4 mg tablets Indications: Acute bronchitis, unspecified organism Follow schedule on package instructions 1 tablet 0 02/13/2023 03/14/2023 Discontinued (Therapy completed) Start: 02-13-2023 methylPREDNISo lone (Medrol, Tomás,) 4 mg tablets Indications: Acute bronchitis, unspecified organism Follow schedule on package instructions 1 tablet 0 02/13/2023 Active Start: 02-13-2023 End: 02-13-2023 methylPREDNISolone sod succi marcelo (SOLU-Medrol) injection - Omnicell Override Pull Start: 02-13-2023 End: 02-13-2023 methylPREDNISolone sod succi marcelo (SOLU-Medrol) injection 125 mg montelukast 10 mg oral tablet (20 sources) Leukotriene Receptor Antagonist Start: 07-31-2015 End: 12-11-2023 take 1 tablet by mouth at bedtime Montelukast (Singulair) 10 mg tablet Active 10 mg PO AT BEDTIME December 11, 2023 7:50am Montelukast Sodi um (SINGULAIR PO) take by mouth. Active End: 03-14-2023 montelukast (Singulair) 4 mg chewable tablet Chew. 0 03/14/2023 Discontinued (Therapy completed) Singulair 10 MG Oral Tablet Quantity: 0 Refills: 0 Ordered: 18-Feb-2019 DO Active Montelukast Sodi um (SINGULAIR PO) take by mouth. 0 Active naproxen 500 mg oral tablet (20 sources) Nonsteroidal Anti-inflammatory Drug Start: 05-30-2023 End: 12-31-2024 take 1 tablet by mouth twice daily naproxen (Naprosyn) 500 mg tablet Indications: Primary osteoarthritis of right knee Take 1 tablet (500 mg) by mouth 2 times daily (morning and late afternoon). 60 tablet 11 01/01/2024 12/31/2024 Active Start: 08-28-2022 End: 10-23-2023 take 1 tablet by mouth every twelve hours naproxen (Naprosyn) 500 mg tablet Indications: Primary osteoarthritis of right knee Take 1 tablet (500 mg) by mouth every 12 hours. 60 tablet 2 06/18/2023 10/23/2023 Discontinued (Med List Cleanup) Start: 08-28-2022 take 1 tablet by miguel th every twelve hours Naproxen 500 MG Oral Tablet TAKE 1 TABLET Every twelve hours Quantity: 60 Refills: 1 Ordered: 28-Aug-2022 Kingsley Blum III, MD Start : 28-Aug-2022 Active Start: 10-27-2020 End: 10-25-2022 naproxen sodium (Anaprox DS) 550 MG tablet Indications: Chronic migraine without aura without status migrainosus, not intractable 1 po prn headache 1 po prn headache may repeat in 2 hours 15 tablet 10/27/2020 10/25/2022 Discontinued (Therapy completed) Start: 01-28-2019 End: 03-14-2023 naproxen sodium (Anaprox) 55 0 mg tablet Take by mouth. 0 01/28/2019 03/14/2023 Discontinued (Therapy completed) Start: 01-28-2019 Naproxen Sodiu m 550 MG Oral Tablet Quantity: 15 Refills: 0 Ordered: 28-Jan-2019 DO Start : 28-Jan-2019 Active Start: 10-24-2017 End: 10-29-2019 take 1 tablet by mouth once as needed for headache and headache, then take 1 tablet by mouth as needed for headache and headache naproxen sodium (Anaprox DS) 550 MG tablet Indications: Chronic migraine without aura without status migrainosus, not intractable 1 po prn headache 1 po prn headache may repeat in 2 hours 15 tablet 11 10/29/2019 Active End: 01-09-2022 naproxen (NAPROSYN) 500 MG t ablet Take 550 mg by mouth 2 (two) times a day as needed . 0 01/09/2022 Discontinued (Patient's Request) End: 10-06-2017 NAPROXEN SODIUM (ANAPROX ORA L) Take 1 capsule by mouth as needed. 10/06/2017 Discontinued NAPROXEN SODIUM (ANAPROX ORAL) Take 1 capsule by mouth as needed. Active Niacin, Antihyperlipidemic, (NIASPAN PO) (12 sources) Niacin, Antihype rlipidemic, (NIASPAN PO) take by mouth. Active Niacin, Antihype rlipidemic, (NIASPAN PO) take by mouth. 0 Active ondansetron 4 mg oral tablet (10 sources) Serotonin-3 Receptor Antagonist Start: 04-25-2023 End: 07-23-2024 take 1 tablet by mouth every six hours as needed for nausea Ondansetron 4 MG tablet 1 po q 6 hours prn nausea ( migraine) 10 tablet 2 07/23/2024 Active Start: 02-08-2023 End: 02-08-2023 ondansetron ODT (Zofran-ODT) disintegrating tablet 4 mg ondansetron ODT (Zofran-ODT) disintegrating tablet 4 mg (2 sources) Start: 10-27-2023 take 1 tablet by mouth every eight hours as needed ondansetron ODT (Zofran-ODT) disintegrating tablet 4 mg Start: 10-18-2023 take 1 tablet by miguel th every eight hours as needed ondansetron ODT (Zofran-ODT) disintegrating tablet 4 mg oseltamivir 75 mg oral capsule (1 source) Neuraminidase Inhibitor Start: 03-14-2023 End: 03-19-2023 take 1 capsule by mouth twice daily oseltamivir (Tamiflu) 75 mg capsule Indications: Viral URI with cough Take 1 capsule (75 mg) by mouth 2 times a day for 5 days. 10 capsule 0 03/14/2023 03/19/2023 Active perflutren lipid microspheres (Definity) injection 1 mL of dilution (1 source) Start: 10-20-2023 1 mL of dilution, intravenous, Once in imaging, Starting on Fri10/20/23 at 0437, For 1 dose, CV Medications, Contrast - for use by imaging provider only. Prior to administration, Definity product must be activated. First, bring vial to room temperature. Then, shake vial for 45 seconds. Do not use if the 45 second activation cycle has not been completed. Following activation, the product will appear as a milky white suspension and may be used immediately. If not used within 5 minutes of activation, re-suspend by inverting and shaking the vial for 10 seconds. Discard unused product. Administration: Dilute 1.3 mL of activated DEFINITY with 8.7 mL of normal saline in a 10 mL syringe. Inject 0.5 mL of diluted DEFINITY when notified the images/film are unclear to enhance view of Left Ventricular borders. Repeat 0.5 mL of DEFINITY until clear images are obtained, not to exceed 10 mLs. Once images are obtained or limit of medication is reached, flush line with 10 mL of Normal Saline. perflutren protein A microsphere (Optison) injection 0.5 mL (2 sources) Start: 10-20-2023 0.5 mL, intravenous, Once in imaging, Starting on Fri10/20/23 at 0437, For 1 dose, CV Medications phentermine hydrochloride 37.5 mg oral capsule (14 sources) Sympathomimetic Amine Anorectic Start: 09-18-2023 End: 10-23-2023 take 40-44.9 capsules by mouth once daily before mealtime phentermine 37.5 mg capsule Indications: Class 3 severe obesity due to excess calories without serious comorbidity with body mass index (BMI) of 40.0 to 44.9 in adult (Multi) Take 1 capsule (37.5 mg) by mouth once daily in the morning. Take before meals. 30 capsule 09/18/2023 10/23/2023 Discontinued (Therapy completed) Start: 07-14-2023 End: 09-14-2023 take 40-44.9 capsules by mouth once daily before mealtime phentermine 37.5 mg capsule Indications: Class 3 severe obesity due to excess calories without serious comorbidity with body mass index (BMI) of 40.0 to 44.9 in adult (Multi) Take 1 capsule (37.5 mg) by mouth once daily in the morning. Take before meals. 30 capsule 2023 09/14/2023 Active polyethylene glycol 3350 81194 mg powder for oral solution (1 source) Osmotic Laxative Start: 10-27-2023 take 17 g by mouth every twenty-four hours as needed predniSONE 20 mg oral tablet (20 sources) Corticosteroid Start: 09-12-2023 End: 10-23-2023 predniSONE (Deltasone) 20 mg tablet Indications: Acute pain of right knee Take 2 tablets once daily x 5 days. Take early in your day. 10 tablet 09/12/2023 10/23/2023 Discontinued (Stop Taking at Discharge) Start: 02-07-2022 End: 03-14-2023 Prednisone 10 mg tablet Discontinued 10 mg PO daily February 07, 2022 1:00am November 26, 2022 7:06am take 4 tabs for three days, then 3 tabs for three days, then 2 tabs for three days, then 1 tab for 3 days Start: 12-17-2019 End: 12-21-2019 take 1 tablet by mouth twice daily at mealtime predniSONE 10 mg oral tablet ; 1 tab(s) orally 2 times a day Quantity: 10 Refills: 0 Ordered: 17-Dec-2019 Trevin Ferrell Start: 17-Dec-2019 End: 21-Dec-2019 Status: Other Generic Substitution Allowed Comments: It is very important that you take or use this exactly as directed. Do not skip doses or discontinue unless directed by your doctor.Obtain medical advice before taking any non-prescription drugs as some may affect the action of this medication.Take with food or milk. Start: 08-26-2019 predniSONE 50 MG Oral Tablet Quantity: 6 Refills: 0 DO Start : 26-Aug-2019 Active Start: 05-21-2018 End: 11-18-2018 take 4 tablets by mouth once daily Prednisone 10 mg tablet Discontinued 10 mg PO daily May 21, 2018 12:00am November 18, 2018 2:07pm 4 tablet daily for 5 days Start: 12-09-2017 End: 02-26-2018 take 3 tablets by mouth once daily at mealtime Prednisone 20 mg tablet Discontinued 60 mg PO daily December 15, 2017 1:00am February 26, 2018 3:14pm administer with food or milk Start: 12-09-2017 End: 02-26-2018 take 60 mg by mouth once daily at mealtime Prednisone Discontinued 60 MG PO daily December 15, 2017 1:00am February 26, 2018 3:14pm administer with food or milk Start: 02-14-2017 End: 08-25-2017 Prednisone 10 mg tablet Discontinued 10 mg PO daily February 14, 2017 1:00am August 25, 2017 2:17pm take 4 tabs for three days, then 3 tabs for three days, then 2 tabs for three days, then 1 tab for 3 days Start: 12-30-2016 End: 01-11-2017 PREDNISONE 10 MG TABS Take 4 tabs by mouth for 3 days, then 3 tabs by mouth for 3 days, then 2 tabs by mourth for 3 days, then 1 tab by mouth for 3 days. PREDNISONE [id number] Matilda Worthy CHIMNEY BUILDER Start: 05-07-2016 End: 05-19-2016 PREDNISONE 10 MG TABS Take 4 tabs by mouth for 3 days, then 3 tabs by mouth for 3 days, then 2 tabs by mourth for 3 days, then 1 tab by mouth for 3 days. PREDNISONE [id number] Matilda Worthy CHIMNEY BUILDER Start: 03-27-2016 End: 04-08-2016 PREDNISONE 10 MG TABS Take 4 tabs by mouth for 3 days, then 3 tabs by mouth for 3 days, then 2 tabs by mourth for 3 days, then 1 tab by mouth for 3 days. PREDNISONE [id number] Valentin Cruz Start: 02-14-2016 End: 02-26-2016 PREDNISONE 10 MG TABS Take 4 tabs by mouth for 3 days, then 3 tabs by mouth for 3 days, then 2 tabs by mourth for 3 days, then 1 tab by mouth for 3 days. PREDNISONE [id number] Matilda Worthy CHIMNEY BUILDER Start: 01-17-2016 End: 01-29-2016 PREDNISONE 10 MG TABS Take 4 tabs by mouth for 3 days, then 3 tabs by mouth for 3 days, then 2 tabs by mourth for 3 days, then 1 tab by mouth for 3 days. PREDNISONE [id number] Matilda Worthy CHIMNEY BUILDER Start: 06-29-2015 End: 07-11-2015 PREDNISONE 10 MG TABS Take 4 tabs by mouth for 3 days, then 3 tabs by mouth for 3 days, then 2 tabs by mourth for 3 days, then 1 tab by mouth for 3 days. PREDNISONE [id number] Matilda Worthy CNP Comment on above: It is very important that you take or use this exactly as directed. Do not skip doses or discontinue unless directed by your doctor.Obtain medical advice before taking any non-prescription drugs as some may affect the action of this medication.Take with food or milk. rimegepant 75 mg disintegrating oral tablet (20 sources) Start: 10-24-19 End: 07-24-19 take 1 tablet by mouth every other day rimegepant (Nurtec ODT) 75 mg tablet,disintegra ting Dissolve 1 tablet (75 mg) in the mouth every other day. 10/24/2023 Active Start: 10-28-2022 Rimegepant Sul fate (Nurtec) 75 MG Tab Dispersible Take 75 mg by mouth as needed. 2 [facility] # [id number] ex 11/04 4 tablet 10/28/2022 Active Start: 10-31-2020 End: 10-18-2023 take 1 tablet by mouth every other day Rimegepant Sulfate (Nurtec) 75 MG Tab Dispersible 1 po every other day for migraine prevention 16 tablet 6 04/25/2023 Active rimegepant sulfate (NURTEC ODT ORAL) (6 sources) rimegepant sulfa te (NURTEC ODT ORAL) Take 75 mg by mouth PRN . 0 Active sertraline 100 mg oral tablet (20 sources) Serotonin Reuptake Inhibitor Start: 01-28-2019 End: 10-15-2023 take 1 tablet by mouth once daily sertraline (Zoloft) 100 mg tablet Indications: Depression, unspecified depression type Take 1 tablet (100 mg) by mouth once daily. 30 tablet 11 10/15/2023 Active take 2 tablets by mo uth once daily sertraline (ZOLOFT) 50 MG tablet Take 2 (two) tablets (100 mg total) by mouth daily . 0 Active End: 03-14-2023 take 4 tablets by mouth every twenty-four hours sertraline (Zoloft) 25 mg tablet Take 4 tablets (100 mg) by mouth once every 24 hours. 0 03/14/2023 Discontinued (Therapy completed) take 1 tablet by miguel th once daily sertraline (ZOLOFT) 50 MG tablet Take 50 mg by mouth daily. 0 Active Sertraline HCl ( ZOLOFT PO) take by mouth. 0 Active 1000 ml sodium chloride 9 mg/ml injection (5 sources) Start: 10-26-2023 End: 10-27-2023 take 150 mL intravenously every hour 150 mL/hr, intravenous, Continuous, Starting on 10/27/23 at 0135 Start: 10-17-2023 End: 10-19-2023 take 150 mL intravenously every hour 150 mL/hr, intravenous, Continuous, Starting on Fri10/18/23 at 0400 sulfur hexafluoride microsphr (Lumason) injection 24.28 mg (2 sources) Start: 10-20-2023 24.28 mg (2 mL ), intravenous, Once in imaging, Starting on Fri10/20/23 at 0437, For 1 dose, CV Medications, Follow administration with 5 mL NaCL 0.9% injection. 0.5 ml SUMAtriptan 12 mg/ml auto-injector (20 sources) Serotonin-1b and Serotonin-1d Receptor Agonist Start: 07-23-2024 SUMAtriptan Succinat e 6 MG/0.5ML Solution Auto-injector 1 sub q dose prn migraine . Could repeat in 2 hours . Not more than 1 a day 2 mL 6 07/23/2024 Active Start: 05-07-2023 End: 01-23-2024 SUMAtriptan (Tosymra) 10 MG/ ACT Solution Sample Given Lot: [id number] Exp: 04/07 X1 1 Each 05/07/2023 01/23/2024 Discontinued (Therapy completed) Start: 10-25-2022 End: 10-18-2023 SUMAtriptan succinate 4 mg/0 .5 mL pen injector INJECT SUBCUTANEOUSLY NEEDED FOR HEADACHE, MAY REPEAT IN 2 HOURS. NO MORE THAN TWICE DAILY 10/25/2022 10/18/2023 Discontinued (Therapy completed) Start: 10-23-2018 End: 04-25-2023 inject 1 dose by subcutaneous injection every two hours as needed for headache SUMAtriptan Succinate (Imitrex STATdose System) 4 MG/0.5ML Solution Auto-injector 1 sub q dose prn headache, may repeat in 2 hours; no more than 2 a day 3 mL 3 10/25/2022 04/25/2023 Discontinued (Therapy completed) End: 06-08-2015 IMITREX 50 MG TABS One table t by mouth as needed migraine headache; may repeat does in 2 hours if needed SUMATRIPTAN SUCCINATE [id number] Yael Tran tiZANidine 4 mg oral tablet (1 source) Central alpha-2 Adrenergic Agonist Start: 07-23-2024 tiZANidine 4 MG tablet 1/2 or 1 at bed as need for insomnia /muscle spasm -May be sedating 20 tablet 07/23/2024 Active sprinkle 24 hr topiramate 50 mg extended release oral capsule (6 sources) Anti-epileptic Agent Start: 07-23-2024 Topiramat e ER 50 MG Capsule ER 24 Hour Sprinkle 1 or 2 at bed 60 capsule 6 07/23/2024 Active Start: 10-24-2017 End: 10-29-2018 topiramate 50 MG Tab 1 at be d 30 tablet 1 10/24/2017 Active End: 10-06-2017 take 1 capsule by mouth twice daily topiramate (TOPAMAX) 25 MG capsule Take 25 mg by mouth 2 (two) times a day. 10/06/2017 Discontinued traMADol hydrochloride 50 mg oral tablet (1 source) Opioid Agonist Start: 10-18-2023 take 1 tablet by mouth every six hours as needed 50 mg, oral, Every 6 hours PRN, pain moderate (4-6), second line, Starting on 10/18/23 at 0250, Max of 300 mg daily for patients > 75 years of age., If ordered PRN for pain, nurse is permitted to administer this medication for higher pain scores based on patient preference? Yes Completed/Discontinued Medications Medication Drug Class(es) Dates Sig (Normalized) Sig (Original) [id number] 200 actuat albuterol 0.09 mg/actuat metered dose inhaler (20 sources) beta2-Adrenergic Agonist Start: 12-15-2022 End: 10-18-2023 take 2 puff(s) by mouth every four hours albuterol 90 mcg/actuation inhaler inhale 2 puffs by mouth and INTO THE LUNGS every 4 hours if neede... (REFER TO PRESCRIPTION NOTES). 12/15/2022 10/18/2023 Discontinued (Therapy completed) Start: 11-18-2018 End: 12-11-2023 Albuterol Sulfate (Proair Hf a) 90 mcg/actuation HFA aerosol inhaler Discontinued 2 NMA INHALATION Q4H as needed for shortness of breath or wheezing November 26, 2022 7:20am December 11, 2023 7:50am Start: 11-18-2018 End: 11-26-2022 take 1 puff(s) by inhalation every four hours Albuterol Sulfate (Proair Hfa) 90 mcg/actuation HFA aerosol inhaler Discontinued 2 PUFF INHALATION Q4H January 21, 2020 11:51am November 26, 2022 7:20am Start: 02-14-2017 End: 11-18-2018 Albuterol Sulfate (Proair Hf a) 90 mcg/actuation HFA aerosol inhaler Discontinued 2 NMA INHALATION Q4H as needed February 14, 2017 1:00am November 18, 2018 2:39pm Start: 02-14-2017 End: 11-18-2018 take 1 puff(s) by inhalation every four hours Albuterol Sulfate (Proair Hfa) 90 mcg/actuation HFA aerosol inhaler Discontinued 2 PUFF INHALATION Q4H February 14, 2017 1:00am November 18, 2018 2:39pm Start: 06-29-2015 take 2 puff(s) by in halation every four to six hours as needed for wheezing PROAIR HFA 108 (90 Base) MCG/ACT AERS 2 puffs INH q 4-6 hours PRN Wheezing ALBUTEROL SULFATE [id number] Matilda Worthy CNP Albuterol Sulfat e (PROAIR HFA IN) Inhale as needed. Active Albuterol Sulfat e (PROAIR HFA IN) Inhale as needed. 0 Active amoxicillin 500 mg oral capsule (2 sources) Penicillin-class Antibacterial Start: 06-22-2019 take 2 capsules by mouth twice daily Amoxicillin 500 MG Oral Capsule TAKE 2 CAPSULE Twice daily Quantity: 40 Refills: 0 Dimitry Subramanian Start : 22-Jun-2019 Active apremilast 30 mg oral tablet (9 sources) End: 03-14-2023 apremilast (Otezla) 30 mg tablet Take by mouth. 0 03/14/2023 Discontinued (Therapy completed) Atogepant (Qulipta) 60 MG tablet (2 sources) Start: 08-13-2023 End: 10-24-2023 take 1 tablet by mouth once daily Atogepant (Qulipta) 60 MG tablet Take 1 tablet by mouth daily. 30 tablet 6 08/13/2023 10/24/2023 Discontinued (Therapy completed) Start: 08-13-2023 take 1 tablet by miguel th once daily Atogepant (Qulipta) 60 MG tablet Take 1 tablet by mouth daily. 30 tablet 6 08/13/2023 Active benzonatate 100 mg oral capsule (8 sources) Non-narcotic Antitussive Start: 01-31-2022 End: 03-14-2023 take 1 capsule by mouth three times daily as needed benzonatate (Tessalon) 100 mg capsule Take 1 capsule (100 mg) by mouth 3 times a day as needed. 0 01/31/2022 03/14/2023 Discontinued (Therapy completed) betamethasone 3 mg/ml / betamethasone acetate 3 mg/ml injectable suspension (2 sources) Corticosteroid Start: 01-17-2023 End: 01-17-2023 betamethasone acet,sod phos (Celestone) injection 1 mg onabotulinumtoxina 100 unt injection (15 sources) Acetylcholine Release Inhibitor Start: 07-20-2024 End: 07-20-2024 onabotulinumtoxinA (BOTOX) injection 200 Units Start: 07-20-2024 End: 07-20-2024 200 Units, Intramuscular, ON CE (IN CLINIC), 1 dose, On Fri07/20/24 at 1330, Reconstitute with preservative free sodium chloride 0.9% only.see note Start: 04-16-2024 End: 04-16-2024 onabotulinumtoxinA (BOTOX) i njection 200 Units Start: 04-16-2024 End: 04-16-2024 200 Units, Intramuscular, ON CE (IN CLINIC), 1 dose, On Fri04/16/24 at 1400, Reconstitute with preservative free sodium chloride 0.9% only. See note Start: 01-06-2024 End: 01-06-2024 onabotulinumtoxinA (BOTOX) i njection 200 Units Start: 01-06-2024 End: 01-06-2024 200 Units, Intramuscular, ON CE (IN CLINIC), 1 dose, On 01/06/24 at 1515, Reconstitute with preservative free sodium chloride 0.9% only. See note Start: 10-02-2023 End: 10-02-2023 onabotulinumtoxinA (BOTOX) i njection 200 Units Start: 10-02-2023 End: 10-02-2023 200 Units, Intramuscular, ON CE (IN CLINIC), 1 dose, On Callie 10/02/23 at 1345, Reconstitute with preservative free sodium chloride 0.9% only. See Note Start: 07-15-2023 Botulinum Toxi n Type A 200 units Recon Soln For prevention of chronic migraine 1 Each 07/15/2023 Active 120 actuat budesonide 0.08 mg/actuat / formoterol fumarate 0.0045 mg/actuat metered dose inhaler (20 sources) Corticosteroid, beta2-Adrenergic Agonist Start: 03-03-2018 End: 11-29-2019 Budesonide-Formoterol (Symbicort) 80-4.5 mcg/actuation HFA aerosol inhaler Discontinued 2 NMA INHALATION TWICE A DAY 10.2 November 18, 2018 2:41pm November 29, 2019 1:00pm Start: 03-03-2018 End: 11-29-2019 take 1 puff(s) by inhalation twice daily Budesonide-Formoterol (Symbicort) 80-4.5 mcg/actuation HFA aerosol inhaler Discontinued 2 PUFF INHALATION TWICE A DAY 10.2 November 18, 2018 2:41pm November 29, 2019 1:00pm Start: 02-14-2017 End: 05-21-2018 Budesonide-Formoterol (Symbi karen) 160-4.5 mcg/actuation HFA aerosol inhaler Discontinued 2 NMA INHALATION Q12H February 14, 2017 1:00am May 21, 2018 2:05pm Start: 02-14-2017 End: 05-21-2018 take 1 puff(s) by inhalation every twelve hours Budesonide-Formoterol (Symbicort) 160-4.5 mcg/actuation HFA aerosol inhaler Discontinued 2 PUFF INHALATION Q12H February 14, 2017 1:00am May 21, 2018 2:05pm Start: 03-27-2016 SYMBICORT 160- 4.5 MCG/ACT AERO 2 puffs twice daily BUDESONIDE-FORMOTEROL FUMARATE [id number] Matilda Worthy CNP budesonide/formoterol fumara te (SYMBICORT INHL) (5 sources) End: 03-14-2023 budesonide/formoterol fumara te (SYMBICORT INHL) Inhale. 0 03/14/2023 Discontinued (Therapy completed) budesonide/formo terol fumarate (SYMBICORT INHL) Inhale. 0 Active cephalexin 250 mg oral tablet (1 source) Cephalosporin Antibacterial Start: 05-01-2020 take 1 tablet by mouth twice daily Cephalexin 250 MG Oral Tablet Take 1 tablet twice daily Quantity: 6 Refills: 0 Jerson Luciano II, MD Start : 01-May-2020 Active Start: 05-01-2020 take 1 tablet by miguel th twice daily Cephalexin 250 MG Oral Tablet Take 1 tablet twice daily Quantity: 6 Refills: 0 Jerson Luciano II, MD Start : 01-May-2020 Active cetirizine hydrochloride 10 mg oral capsule (20 sources) Histamine-1 Receptor Antagonist Start: 02-14-2017 End: 08-25-2017 take 1 capsule by mouth once daily Cetirizine (Zyrtec) 10 mg capsule Discontinued 10 mg PO daily February 14, 2017 1:00am August 25, 2017 2:17pm Start: 09-13-2015 End: 01-26-2016 take 1 tablet by mouth once daily ZYRTEC ALLERGY 10 MG CAPS One tablet by mouth daily every night CETIRIZINE HCL [id number] Chiquita Vásquez LPN Start: 09-13-2015 End: 10-07-2016 take 1 tablet by mouth once daily ALL DAY ALLERGY 10 MG TABS One tablet PO daily CETIRIZINE HCL [id number] Valentin Cruz End: 03-14-2023 cetirizine (Allergy Relief, cetirizine,) 1 mg/mL syrup Take by mouth. 0 03/14/2023 Discontinued (Therapy completed) End: 10-25-2022 Cetirizine HCl (ZYRTEC ALLER GY PO) Take by mouth as needed. 0 10/25/2022 Discontinued (Therapy completed) Cetirizine HCl ( ZYRTEC ALLERGY PO) Take by mouth as needed. 0 Active Cetirizine HCl ( ZYRTEC ALLERGY PO) take by mouth as needed. 0 Active ciprofloxacin 3 mg/ml ophthalmic solution (5 sources) Quinolone Antimicrobial Start: 12-15-2022 End: 03-14-2023 take 1 drop(s) into the eye(s) every two hours ciprofloxacin (Ciloxan) 0.3 % ophthalmic solution instill 1 drop into both eyes every 2 hours while awake for 1 day... (REFER TO PRESCRIPTION NOTES). 0 12/15/2022 03/14/2023 Discontinued (Therapy completed) codeine phosphate 2 mg/ml / promethazine hydrochloride 1.25 mg/ml oral solution (6 sources) Opioid Agonist, Phenothiazine End: 06-29-2015 PROMETHAZINE-CODEI NE 6.25-10 MG/5ML SYRP 5ml q 4 hrs as needed cough PROMETHAZINE-CODEI NE [id number] Gerri Aguillon LPN diclofenac sodium 50 mg delayed release oral tablet (20 sources) Nonsteroidal Anti-inflammatory Drug Start: 05-27-2022 End: 03-14-2023 diclofenac (Voltaren) 50 mg EC tablet Take by mouth. 0 05/27/2022 03/14/2023 Discontinued (Therapy completed) Start: 01-31-2022 End: 03-14-2023 diclofenac sodium (Voltaren) 1 % gel gel Apply to affected area up to 4 times daily 2 grams. 0 01/31/2022 03/14/2023 Discontinued (Therapy completed) Levonorgestrel-Ethinyl Estrad (12 sources) Progestin, Estrogen, Progestin-containing Intrauterine Device Start: 02-14-2017 End: 08-25-2017 take 1 tablet by mouth once daily Levonorgestrel-Ethinyl Estrad Discontinued 1 TABLET PO daily February 14, 2017 3:18pm August 25, 2017 2:17pm Start: 02-14-2017 End: 08-25-2017 Levonorgestrel-Ethinyl Estra d 0.15-0.03 mg tablet Discontinued 1 {tbl} PO daily February 14, 2017 1:00am August 25, 2017 2:17pm Start: 02-14-2017 End: 08-25-2017 take 1 tablet by mouth once daily Levonorgestrel-Ethinyl Estrad Discontinued 1 TABLET PO daily February 14, 2017 1:00am August 25, 2017 2:17pm End: 03-14-2023 levonorgestreL-ethinyl estra d (Nordette) 0.15-0.03 mg tablet Take by mouth. 0 03/14/2023 Discontinued (Therapy completed) levonorgestreL-e thinyl estrad (Nordette) 0.15-0.03 mg tablet Take by mouth. 0 Active End: 10-06-2017 take 1 tablet by mouth once daily levonorgestrel-ethinyl estradiol (NORDETTE) 0.15-0.03 mg per tablet Take 1 tablet by mouth daily. 10/06/2017 Discontinued take 1 tablet by miguel once daily, then take 0.15 tablet by mouth once levonorgestrel-ethinyl estradiol (NORDETTE) 0.15-0.03 mg per tablet Take 1 tablet by mouth daily. Active famotidine 40 mg oral tablet (6 sources) Histamine-2 Receptor Antagonist Start: 06-29-2015 End: 09-13-2015 take 1 tablet by mouth once daily PEPCID 40 MG TABS One tablet by mouth daily FAMOTIDINE [id number] Chiquita Reyna fluconazole 150 mg oral tablet (3 sources) Azole Antifungal Start: 10-11-2019 Fluconazole 1 50 MG Oral Tablet TAKE 1 TABLET ONCE. MAY REPEAT IN 2 DAYS.. Quantity: 2 Refills: 1 Kingsley Hutchins MD Start : 11-Oct-2019 Active fluticasone propionate 0.05 mg/actuat metered dose nasal spray (19 sources) Corticosteroid Start: 02-23-2019 take 1 spray(s) nasal route twice daily Fluticasone Propionate 50 MCG/ACT Nasal Suspension USE 1 SPRAY IN EACH NOSTRIL TWICE DAILY. Quantity: 1 Refills: 0 Lisy Flowers Start : 23-Feb-2019 Active 9.9 ML Bottle Start: 06-29-2015 End: 04-30-2016 FLOVENT HFA 220 MCG/ACT AERO 2 puffs twice daily FLUTICASONE PROPIONATE HFA [id number] Chiquita Monae Fahad [employer] Flonase Allergy Relief 50 MCG/ACT Nasal Suspension Refills: 0 DO Active End: 09-13-2015 FLOVENT HFA 220 MCG/ACT AERO 1 puff bid FLUTICASONE PROPIONATE HFA [id number] Gerri Delia Aguillon LPN End: 10-07-2016 take 1 puff(s) by mouth twice daily fluticasone (FLOVENT HFA) 220 mcg/actuation inhaler Inhale 1 puff 2 (two) times a day Rinse mouth after each use . 10/07/2016 Discontinued 4 ml furosemide 10 mg/ml injection (1 source) Loop Diuretic Start: 10-20-2023 End: 10-20-2023 20 mg, intravenous, Once, On Fri10/20/23 at 1545, For 1 dose Start: 10-20-2023 End: 10-20-2023 20 mg, intravenous, Once, On Fri10/20/23 at 1545, For 1 dose 2 ml sodium hyaluronate 10 m g/ml prefilled syringe (19 sources) Start: 06-04-2024 End: 06-04-2024 sodium hyaluronate (Euflexxa ) injection 20 mg Start: 06-04-2024 End: 06-04-2024 20 mg, intra-articular, Once PRN Procedure, Starting on Fri06/04/24 at 0932, For 1 dose Start: 05-28-2024 End: 05-28-2024 sodium hyaluronate (Euflexxa ) injection 20 mg Start: 05-28-2024 End: 05-28-2024 20 mg, intra-articular, Once PRN Procedure, Starting on Fri05/28/24 at 0852, For 1 dose Start: 05-21-2024 End: 05-21-2024 sodium hyaluronate (Euflexxa ) injection 20 mg Start: 05-21-2024 End: 05-21-2024 20 mg, intra-articular, Once PRN Procedure, Starting on Fri05/21/24 at 0923, For 1 dose Start: 04-28-2024 End: 05-27-2024 sodium hyaluronate (Euflexxa ) 10 mg/mL(mw 2.4 -3.6 million) injection Indications: Primary osteoarthritis of right knee Inject 2 mL (20 mg) into the joint 1 (one) time per week for 3 doses. PROVIDER TO INJECT INTRA ARTICULARLY INTO THE RIGHT KNEE ONCE A WEEK FOR THREE WEEKS. 6 mL 05/12/2024 05/27/2024 Active Start: 07-23-2023 End: 07-23-2023 sodium hyaluronate (Euflexxa ) injection 20 mg Start: 07-23-2023 End: 07-23-2023 20 mg, intra-articular, Once PRN Procedure, Starting on Fri07/23/23 at 1610, For 1 dose Start: 07-16-2023 End: 07-16-2023 sodium hyaluronate (Euflexxa ) injection 20 mg Start: 07-16-2023 End: 07-16-2023 20 mg, intra-articular, Once PRN Procedure, Starting on Fri07/16/23 at 0856, For 1 dose Start: 07-09-2023 End: 07-09-2023 sodium hyaluronate (Euflexxa ) injection 20 mg Start: 07-09-2023 End: 07-09-2023 20 mg, intra-articular, Once PRN Procedure, Starting on Fri07/09/23 at 1545, For 1 dose Start: 06-04-2023 End: 06-18-2023 sodium hyaluronate (Euflexxa ) injection 20 mg ibuprofen 600 mg oral tablet (2 sources) Nonsteroidal Anti-inflammatory Drug Start: 10-28-2023 End: 10-28-2023 take 600 mg by mouth once at mealtime 600 mg, oral, Once, On Fri10/28/23 at 1430, For 1 dose, May administer with food to reduce GI upset. Start: 02-08-2023 End: 02-08-2023 ibuprofen tablet 600 mg imipramine hydrochloride 50 mg oral tablet (9 sources) Tricyclic Antidepressant Start: 11-01-2019 End: 11-28-2021 take 1 tablet by mouth twice daily Imipramine Hcl 50 mg tablet Discontinued 50 mg PO TWICE A DAY November 29, 2019 12:00am November 28, 2021 7:39am Start: 11-01-2019 End: 01-09-2022 take 1 tablet by mouth once daily imipramine (TOFRANIL) 50 MG tablet Take 50 mg by mouth nightly . 0 11/01/2019 01/09/2022 Discontinued (Patient's Request) ketorolac tromethamine 10 mg oral tablet (8 sources) Nonsteroidal Anti-inflammatory Drug, Cyclooxygenase Inhibitor Start: 01-31-2022 End: 03-14-2023 take 1 tablet by mouth every six hours as needed ketorolac (Toradol) 10 mg tablet Take 1 tablet (10 mg) by mouth every 6 hours if needed. 0 01/31/2022 03/14/2023 Discontinued (Therapy completed) levoFLOXacin 500 mg oral tablet (15 sources) Quinolone Antimicrobial Start: 12-30-2016 take 1 tablet by mouth once daily LEVAQUIN 500 MG TABS One tablet PO daily LEVOFLOXACIN [id number] Matilda Worthy CNP Start: 05-07-2016 End: 08-14-2016 take 1 tablet by mouth once daily LEVAQUIN 500 MG TABS One tablet PO daily LEVOFLOXACIN [id number] Gabriela Ayala Start: 02-14-2016 End: 02-28-2016 take 1 tablet by mouth once daily LEVAQUIN 500 MG TABS One tablet PO daily LEVOFLOXACIN [id number] Chiquita Vásquez LPN Lidocaine (2 sources) Antiarrhythmic, Amide Local Anesthetic Start: 01-17-2023 End: 01-17-2023 lidocaine (Xylocaine) 10 mg/mL (1 %) injection 1 mL Meperidine (1 source) Opioid Agonist Start: 07-25-2023 End: 07-25-2023 intravenous, As needed, Starting on Fri07/25/23 at 1010, Intraprocedure 2 ml midazolam 5 mg/ml injection (1 source) Benzodiazepine Start: 07-25-2023 End: 07-25-2023 intravenous, Administer over 5 Minutes, As needed, Starting on Fri07/25/23 at 1011, Intraprocedure minocycline 50 mg oral capsule (6 sources) Tetracycline-class Drug Start: 06-29-2015 End: 09-13-2015 take 2 tablets by mouth twice daily MINOCIN 50 MG CAPS Two tablets by mouth twice daily MINOCYCLINE HCL [id number] Chiquita E Tullar 24 hr niacin 1000 mg extended release oral tablet (14 sources) Nicotinic Acid Start: 02-14-2017 End: 03-14-2023 take 1 tablet by mouth every twenty-four hours at bedtime Niacin (Niaspan Extended-Release) 1,000 mg tablet extended release 24 hr Discontinued 1000 mg PO AT BEDTIME February 14, 2017 1:00am August 25, 2017 2:17pm Start: 10-02-2015 End: 10-07-2016 take 1 tablet by mouth once daily niacin 500 MG ER tablet Indications: Hyperlipidemia, unspecified hyperlipidemia type Take 1 tablet (500 mg total) by mouth nightly. 90 tablet 3 10/02/2015 10/07/2016 Discontinued NORDETTE (3 sources) NORDETTE 30 mcg-0.15 tablet, One tablet by mouth daily Yael Tran perflutren lipid microspheres (Definity) injection 0.5-10 mL of dilution (1 source) Start: End: 0.5-10 mL of dilution, intravenous, Once in imaging, Starting on Fri10/20/23 at 0437, For 1 dose, CV Medications, Contrast - for use by imaging provider only. Prior to administration, Definity product must be activated. First, bring vial to room temperature. Then, shake vial for 45 seconds. Do not use if the 45 second activation cycle has not been completed. Following activation, the product will appear as a milky white suspension and may be used immediately. If not used within 5 minutes of activation, re-suspend by inverting and shaking the vial for 10 seconds. Discard unused product. Administration: Dilute 1.3 mL of activated DEFINITY with 8.7 mL of normal saline in a 10 mL syringe. Inject 0.5 mL of diluted DEFINITY when notified the images/film are unclear to enhance view of Left Ventricular borders. Repeat 0.5 mL of DEFINITY until clear images are obtained, not to exceed 10 mLs. Once images are obtained or limit of medication is reached, flush line with 10 mL of Normal Saline. pioglitazone 15 mg oral tablet (6 sources) Peroxisome Proliferator Receptor alpha Agonist, Peroxisome Proliferator Receptor gamma Agonist, Thiazolidinedione End: 016 take 1 tablet by mouth once daily ACTOS 15 MG TABS Take 1 tablet by mouth once a day PIOGLITAZONE HCL [id number] Gerri Aguillon [employer] prochlorperazine 5 mg/ml injectable solution (1 source) Phenothiazine Start: 024 End: 024 5 mg, intravenous, Once, On 10/26/23 at 2305, For 1 dose riboflavin 100 mg oral tablet (4 sources) End: 023 Riboflavin 100 MG Tab take 100 mg by mouth. 0 10/25/2022 Discontinued (Therapy completed) 1 ml triamcinolone acetonide 40 mg/ml injection (7 sources) Corticosteroid Start: End: triamcinolone acetonide (Kenalog-40) injection 40 mg Start: 03-25-2024 End: 03-25-2024 40 mg, intra-articular, Once PRN Procedure, Starting on Callie 03/25/24 at 1623, For 1 dose Start: 12-25-2023 End: 12-25-2023 triamcinolone acetonide (Kenalog-40) injection 40 mg Start: 12-25-2023 End: 12-25-2023 40 mg, intra-articular, Once PRN Procedure, Starting on Callie 12/25/23 at 2019, For 1 dose Start: 02-20-2022 Triamcinolone Acetonide 40 MG/ML Injection Suspension INJECT 1 ML Intra-articular Quantity: 0 Refills: 0 Ordered: 20-Feb-2022 Elina Cordova PA-C Start : 20-Feb-2022 Complete Start: 12-15-2017 End: 12-15-2017 inject 60 mg by intramuscular injection once Kenalog (triamcinolone acetonide) 40 mg/mL suspension for injection Discontinued 60 MG IM ONCE 1.5 December 15, 2017 10:05am December 15, 2017 10:50am Start: 12-02-2017 End: 12-02-2017 inject 60 mg by intramuscular injection once Kenalog (triamcinolone acetonide) 40 mg/mL suspension for injection Discontinued 60 MG IM ONCE 1.5 December 02, 2017 1:37pm December 02, 2017 2:37pm ubidecarenone 30 mg oral capsule (5 sources) End: 03-14-2023 co-enzyme Q-10 30 mg capsule Take by mouth. 0 03/14/2023 Discontinued (Therapy completed) vitamin b6 100 mg oral tablet (2 sources) End: 10-06-2017 take 1 tablet by mouth twice daily, then take 1 tablet by mouth pyridoxine, vitamin B6, (vitamin B-6) 100 MG tablet Take 100 mg by mouth 2 (two) times a day. 10/06/2017 Discontinued Problems Active Problems Problem Classification Problem Date Documented Date Episodic/Chronic Chronic obstructive pulmonary disease and bronchiectasis (1 source) Chronic obstructive pulmonary disease, unspecified; Translations: [Chronic obstructive pulmonary disease, unspecified] Onset: 12-11-2023 Chronic Diseases of white blood cells (20 sources) Leukocytosis; Translations: [Elevated white blood cell count, unspecified] Onset: 10-27-2023 10-27-2023 Chronic Disorders of lipid metabolism (20 sources) Hyperlipidemia; Translations: [Other and unspecified hyperlipidemia] Onset: 10-01-2015 10-07-2016 Chronic Disorders of teeth and jaw (1 source) Temporomandibular joint disorder; Translations: [Unspecified temporomandibular joint disorder, unspecified side] Episodic Headache, including migraine (20 sources) Other migraine, not intractable, without status migrainosus; Translations: [Migraine] Onset: 08-07-2016 10-23-2018 Chronic Lymphadenitis (2 sources) Localized enlarged lymph nodes; Translations: [Localized enlarged lymph nodes] Onset: 07-01-2024 Episodic Menopausal disorders (20 sources) Perimenopausal state; Translations: [Symptomatic menopausal or female climacteric states] Onset: 01-17-2023 01-17-2023 Chronic Osteoarthritis (20 sources) Arthritis of knee; Translations: [Arthropathy, unspecified, lower leg] Onset: 08-28-2022 01-17-2023 Chronic Other aftercare (2 sources) Patient encounter status; Translations: [Other 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 (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) drug therapy] 06-18-2023 Episodic Other aftercare (2 sources) Post-discharge follow-up; Translations: [Encounter for follow-up examination after completed treatment for conditions other than malignant neoplasm] 10-23-2023 Episodic Other complications of ; puerperium affecting management of mother (20 sources) Deliveries by ; Translations: [ delivery, without mention of indication, unspecified as to episode of care or not applicable] Episodic Comment on above: ; Other connective tissue disease (1 source) Paresis of lower extremity; Translations: [Other symptoms and signs involving the musculoskeletal system] 12-01-2023 Episodic Other hematologic conditions (1 source) High troponin I level 12-16-2023 Episodic Other liver diseases (3 sources) Steatosis of liver; Translations: [Fatty (change of) liver, not elsewhere classified] 07-14-2023 Chronic Other liver diseases (4 sources) Fatty (change of) liver, not elsewhere classified; Translations: [Fatty (change of) liver, not elsewhere classified] Onset: 11-06-2023 Chronic Other lower respiratory disease (2 sources) Lung mass; Translations: [Nodule of right lung] Episodic Other nervous system disorders (2 sources) Other chronic pain; Translations: [Other chronic pain] Onset: 07-23-2024 Chronic Other non-epithelial cancer of skin (19 sources) History of malignant neoplasm of skin; Translations: [Personal history of other malignant neoplasm of skin] Episodic Comment on above: 07/2021; Other non-traumatic joint disorders (1 source) Effusion, right knee; Translations: [Effusion, right knee] Onset: 08-28-2022 Episodic Other non-traumatic joint disorders (2 sources) Pain in left knee; Translations: [Pain in left knee] Onset: 07-23-2024 Episodic Other nutritional; endocrine; and metabolic disorders (20 sources) Obesity; Translations: [Obesity, unspecified] Onset: 06-29-2015 06-30-2015 Chronic Other nutritional; endocrine; and metabolic disorders (12 sources) Morbid obesity; Translations: [Morbid (severe) obesity due to excess calories] Onset: 10-23-2018 10-23-2018 Chronic Other nutritional; endocrine; and metabolic disorders (20 sources) Severe obesity; Translations: [Morbid (severe) obesity due to excess calories] Onset: 01-17-2023 06-18-2023 Chronic Other nutritional; endocrine; and metabolic disorders (2 sources) Morbid (severe) obesity due to excess calories; Translations: [Morbid (severe) obesity due to excess calories (Multi)] Onset: 10-27-2023 Chronic Other nutritional; endocrine; and metabolic disorders (2 sources) Body mass index (BMI) 40.0-44.9, adult; Translations: [Body mass index (BMI) 40.0-44.9, adult (Multi)] Onset: 10-27-2023 Chronic Other upper respiratory disease (20 sources) Allergic rhinitis; Translations: [Allergic rhinitis, cause unspecified] Onset: 01-17-2023 01-17-2023 Chronic Residual codes; unclassified (20 sources) Past history of procedure; Translations: [Other specified personal history presenting hazards to health] Episodic Comment on above: 09/10/2018; 09/27/2020-WNL2018; Residual codes; unclassified (20 sources) History of with abortive outcome; Translations: [Personal history of other genital system and obstetric disorders] Episodic Comment on above: 1990; Sprains and strains (15 sources) Strain of muscle of hip; Translations: [Strain of muscle, fascia and tendon of unspecified hip, initial encounter] 05-30-2023 Episodic Superficial injury; contusion (10 sources) Contusion of right knee; Translations: [Contusion of right knee, initial encounter] 05-30-2023 Episodic Unclassified (3 sources) Pre-surgery evaluation ; Translations: [Encounter for other preprocedural examination] Onset: 04-30-2016 04-30-2016 Unclassified (2 sources) SINUS & EAR PAIN 02-16-2021 Comment on above: SINUS & EAR PAIN Unclassified (1 source) 1 YR 05-01-2020 Comment on above: 1 YR Unclassified (1 source) Bilateral chronic knee pain 07-23-2024 Unclassified (1 source) Obesity, class 3; Translations: [Obesity, class 3] Onset: 10-27-2023 Past or Other Problems Problem Classification Problem Date Documented Date Episodic/Chronic Acute bronchitis (4 sources) Acute bronchitis; Translations: [Acute bronchitis, unspecified] Onset: 01-14-2024 02-13-2023 Episodic Asthma (20 sources) Asthma; Translations: [Asthma, unspecified type, unspecified] Onset: 01-17-2023 Resolved: 06-18-2023 01-17-2023 Chronic Biliary tract disease (5 sources) Gallstone; Translations: [Calculus of gallbladder without cholecystitis without obstruction] Onset: 06-23-2023 06-18-2023 Episodic Chronic obstructive pulmonary disease and bronchiectasis (12 sources) Bronchitis; Translations: [Bronchitis, not specified as acute or chronic] Onset: 01-17-2016 01-17-2016 Episodic Fluid and electrolyte disorders (2 sources) Hypo-osmolality and hyponatremia; Translations: [Hypo-osmolality and hyponatremia] Onset: 11-07-2023 Episodic Genitourinary symptoms and ill-defined conditions (20 sources) Incontinence; Translations: [Urinary incontinence] Onset: 01-17-2023 Resolved: 07-14-2023 01-17-2023 Chronic Genitourinary symptoms and ill-defined conditions (20 sources) Nocturia; Translations: [Nocturia] Onset: 01-17-2023 Resolved: 07-14-2023 01-17-2023 Episodic Malaise and fatigue (20 sources) Asthenia; Translations: [Weakness] Onset: 11-27-2023 11-27-2023 Episodic Menstrual disorders (20 sources) Menorrhagia; Translations: [Excessive or frequent menstruation] Onset: 01-17-2023 Resolved: 07-14-2023 01-17-2023 Chronic Mood disorders (20 sources) Depressive disorder; Translations: [Depressive disorder, not elsewhere classified] Onset: 01-17-2023 Resolved: 07-14-2023 01-17-2023 Chronic Mood disorders (20 sources) Mood disorders Onset: 09-17-2021 03-28-2022 Mycoses (20 sources) Candidiasis of vagina; Translations: [Candidiasis of vulva and vagina] Onset: 01-17-2023 Resolved: 07-14-2023 01-17-2023 Episodic Other aftercare (2 sources) Encounter for follow-up examination after completed treatment for conditions other than malignant neoplasm; Translations: [Encounter for follow-up examination after completed treatment for conditions other than malignant neoplasm] Onset: 10-23-2023 Episodic Other connective tissue disease (20 sources) Non-traumatic rhabdomyolysis; Translations: [Rhabdomyolysis] Onset: 10-18-2023 10-27-2023 Episodic Other connective tissue disease (13 sources) Rhabdomyolysis; Translations: [Rhabdomyolysis] Onset: 10-18-2023 01-23-2024 Episodic Other connective tissue disease (4 sources) Rhabdomyolysis; Translations: [Rhabdomyolysis] Onset: 10-27-2023 Episodic Other connective tissue disease (2 sources) Other symptoms and signs involving the musculoskeletal system; Translations: [Other symptoms and signs involving the musculoskeletal system] Onset: 12-01-2023 Episodic Other injuries and conditions due to external causes (20 sources) Traumatic rhabdomyolysis; Translations: [Traumatic ischemia of muscle, subsequent encounter] Onset: 10-27-2023 Resolved: 10-27-2023 10-27-2023 Episodic Other injuries and conditions due to external causes (2 sources) Traumatic ischemia of muscle, subsequent encounter; Translations: [Traumatic ischemia of muscle, subsequent encounter] Onset: 10-26-2023 Episodic Other liver diseases (20 sources) Enzyme level - finding; Translations: [Transaminitis] Onset: 10-27-2023 10-27-2023 Episodic Other liver diseases (2 sources) Abnormal levels of other serum enzymes; Translations: [Abnormal levels of other serum enzymes] Onset: 11-07-2023 Episodic Other lower respiratory disease (20 sources) Cough; Translations: [Chronic cough] Onset: 06-08-2015 Resolved: 06-18-2023 01-17-2016 Episodic Other lower respiratory disease (20 sources) Solitary pulmonary nodule; Translations: [Nodule of lung] Onset: 01-17-2023 03-10-2017 Episodic Other non-traumatic joint disorders (20 sources) Pain in right knee; Translations: [Right knee pain] Onset: 02-28-2022 Resolved: 01-01-2024 Episodic Other skin disorders (1 source) Lesion of skin of nose; Translations: [Disorder of the skin and subcutaneous tissue, unspecified] 2023 Episodic Other skin disorders (2 sources) Disorder of the skin and subcutaneous tissue, unspecified; Translations: [Disorder of the skin and subcutaneous tissue, unspecified] Onset: 2023 Episodic Other upper respiratory disease (6 sources) Pain in throat; Translations: [Hoarse] Onset: 01-17-2016 03-13-2016 Episodic Other upper respiratory infections (20 sources) Acute sinusitis; Translations: [Acute maxillary sinusitis] Onset: 12-30-2016 Resolved: 06-18-2023 12-30-2016 Episodic Residual codes; unclassified (2 sources) Edema, unspecified; Translations: [Edema, unspecified] Onset: 11-07-2023 Episodic Residual codes; unclassified (2 sources) Pain; Translations: [Pain] Onset: 12-25-2023 Episodic Unclassified (20 sources) Abnormal results of pulmonary function studies; Translations: [Lung mass] Onset: 06-08-2015 03-27-2016 Episodic Unclassified (12 sources) Patient encounter status; Translations: [Women's annual routine gynecological examination] Unclassified (20 sources) Finding of menstrual bleeding; Translations: [Menstruation] Comment on above: Onset age 11 years; Unclassified (20 sources) Onset: 07-25-2023 Resolved: 01-23-2024 07-25-2023 Unclassified (1 source) Obesity, class 3; Translations: [Obesity, class 3] Onset: 01-01-2024 Viral infection (3 sources) Viral disease; Translations: [Viral infection, unspecified] Onset: 10-16-2023 10-16-2023 Episodic NEGATED: Highlighted row has not occurred!Residual codes; unclassified (20 sources) Disease Episodic Results Test Name Value Interpretation Reference Range Facility POINT OF CARE ULTRASOUND NO CHARGEon 07-23-2024 POINT OF CARE ULTRASOUND NO CHARGE These images are not reportable by radiology and will not be interpreted by Radiologists. Normal [facility] US Abdomenon 07-23-2024 These images are not reportable by radiology and will not be interpreted by Radiologists. IMAGING PREEMPT Chemodenervation: Mi graineon 07-20-2024 Jose Alvarez MD 07/20/2024 1:54 PM PREEMPT Chemodenervation: Migraine Date/Time: 07/20/2024 1:30 PM Performed by: Jose Alvarez MD Authorized by: Jose Alvarez MD Comments: Description of Procedure: After discussing the risks and benefits of botulinum toxin, the patient provided informed consent. The patient was placed in the seated position on the examination table. The skin was prepped using alcohol pads. A 30-gauge, 0.5 inch-long needle was used with four 1 cc syringes. Concentration: Two 100 unit vials of botox were diluted into 4 ml of normal saline for a concentration of 50 units/1ml. A total of 175 units of botulinum toxin were used and injected as below (divided equally between left and right unless otherwise indicated): 20 units divided into 4 sites in the frontalis muscles 10 units divided into 2 sites in the card scraper muscles 5 units divided into 1 site in the procerus muscle 40 units divided into 8 sites in the temporalis muscles 30 units divided into 6 sites in the occipitalis muscles 30 units divided into 6 sites in the trapezius muscles 20 units divided into 4 sites in the cervical paraspinal muscles Additional 10 units, 2.5 units per site in the frontalis muscle Additional 5 units into the right temporalis muscle Additional 5 units into the right occpitalis muscle. A total of 25 units were discarded as unavoidable waste. The patient tolerated the procedure well and left the clinic without any complications. [facility] Radiology Study observation (narrative) [facility] Absolute lymphocyte countOrd ered By: [facility] Charo on 06-28-2024 Lymphocytes Auto (Unsp spec) [#/Vol] 2.07 10*3/uL 0.83-4.51 [facility] Absolute neutrophil countOrd ered By[facility] Neutrophils (Bld) [#/Vol] 2.7 10*3/uL 2.0-7.7 [facility] Anion gap in Serum or Plasma Ordered By: Loraine Mancilla on 06-28-2024 Anion gap [Moles/Vol] 9 mmol/L 5- [facility] Automated lymphocyte count a s percentage of total leukocytesOrdered By: [facility] Charo on 06-28-2024 Lymphocytes/100 WBC Auto (Unsp spec) 37.7 % - [facility] BUN/creatinine ratioOrdered By: [facility] Urea nitrogen/Creatinine [Mass ratio] 23.7 mg/mg High 10- [facility] Basophil percentageOrdered B y: Loraine Mancilla on 06-28-2024 Basophils/100 WBC (Bld) 0.9 % 0-1 [facility] Bilirubin, totalOrdered By: [facility] Charo on 06-28-2024 Bilirubin [Mass/Vol] 0.26 mg/dL 0.00-1.30 [facility] CBC W/Diff, Automatedon 06-10 Absolute Lymph 2.07 X10 3/uL Normal 0.83-4.51 [facility] Comment on above: Performed By: #### L 501.3030, L100.0100, L500.4050 #### [facility] [address] [place], [address] Absolute Neut 2.7 X10 3/uL Normal 2.0-7.7 [facility] Comment on above: Performed By: #### L 501.3620, L100.0100, [id number] #### [facility] [address] [place], [address] Basophils/100 WBC (Bld) 0.9 % Normal 0-1 [facility] Comment on above: Performed By: #### L 501.3620, L100.0100, [id number] #### [facility] [address] [place], [address] Eosinophils/100 WBC (Bld) 5.6 % High 0-5 [facility] Comment on above: Performed By: #### L 501.3620, L100.0100, [id number] #### [facility] [address] [place], [address] Erythrocyte distribution width (RBC) [Ratio] 13.3 % Normal 11.6-14.6 [facility] Comment on above: Performed By: #### L 501.3620, L100.0100, [id number] #### [facility] [address] [place], [address] Hematocrit (Bld) [Volume fraction] 38.4 % Normal 37-47 [facility] Comment on above: Performed By: #### L 501.3620, L100.0100, [id number] #### [facility] [address] [place], [address] Hemoglobin (Bld) [Mass/Vol] 12.5 g/dL Normal 12.0-15.0 [facility] Comment on above: Performed By: #### L 501.3620, L100.0100, [id number] #### [facility] [address] [place], [address] IG% 0.500 Normal 0.0-0.9 [facility] Comment on above: Result Comment: IG% - Immature Granulocytes (promyelocytes, myelocytes and metamyelocytes) > 1% indicates that a LEFT SHIFT is Present. Performed By: #### L 501.3620, L100.0100, L500.4050 #### [facility] [address] [place], [address] Lymphocytes/100 WBC (Bld) 37.7 % Normal 19-41 [facility] Comment on above: Performed By: #### L 501.3620, L100.0100, [id number] #### [facility] [address] [place], [address] MCH (RBC) [Entitic mass] 27.5 pg Normal 27.0-32.0 [facility] Comment on above: Performed By: #### L 501.3620, L100.0100, [id number] #### [facility] [address] [place], [address] MCHC (RBC) [Mass/Vol] 32.6 g/dL Normal 32-36 [facility] Comment on above: Performed By: #### L 501.3620, L100.0100, [id number] #### [facility] [address] [place], [address] MCV (RBC) [Entitic vol] 84.6 fL Normal 81-99 [facility] Comment on above: Performed By: #### L 501.3620, L100.0100, [id number] #### [facility] [address] [place], [address] Monocytes/100 WBC (Bld) 5.8 % Normal 0-10 [facility] Comment on above: Performed By: #### L 501.3620, L100.0100, [id number] #### [facility] [address] [place], [address] Neutrophils/100 WBC (Bld) 49.5 % Normal 47-70 [facility] Comment on above: Performed By: #### L 501.3620, L100.0100, [id number] #### [facility] [address] [place], [address] Nucleated RBC (Bld) [#/Vol] 0 10*3/uL Normal 0-5 [facility] Comment on above: Performed By: #### L 501.3620, L100.0100, [id number] #### [facility] [address] [place], [address] Platelet mean volume (Bld) [Entitic vol] 11.0 fL Normal 6.2-12.0 [facility] Comment on above: Performed By: #### L 501.3620, L100.0100, [id number] #### [facility] [address] [place], [address] Platelets (Bld) [#/Vol] 221 10*3/uL Normal 150-450 [facility] Comment on above: Performed By: #### L 501.3620, L100.0100, [id number] #### [facility] [address] [place], [address] RBC (Bld) [#/Vol] 4.54 10*6/uL Normal 4.2-5.4 [facility] Comment on above: Performed By: #### L 501.3620, L100.0100, [id number] #### [facility] [address] [place], [address] RDW SD 41.1 fl Normal 35.1-43.9 [facility] Comment on above: Performed By: #### L 501.3620, L100.0100, [id number] #### [facility] [address] [place], [address] WBC (Bld) [#/Vol] 5.5 10*3/uL Normal 4.4-11.0 [facility] Comment on above: Performed By: #### L 501.3620, L100.0100, [id number] #### [facility] [address] [place], [address] CPK Total, Creatine Kinaseon 06-28-2024 CPK TOTAL 77 U/L Normal 24-195 [facility] Comment on above: Performed By: #### L 501.3620, L100.0100, [id number] #### [facility] [address] [place], [address] Carbon dioxide, total [Moles /volume] in Central venous bloodOrdered By: Loraine Mancilla on 06-28-2024 CO2 [Moles/Vol] 24.2 mmol/L 21.0-32.0 [facility] Chloride assayOrdered By: Kathy Macnilla on 06-28-2024 Chloride [Moles/Vol] 105 mmol/L 98-108 [facility] Comprehensive Metabolic Prof ilon 06-28-2024 Albumin [Mass/Vol] 4.2 g/dL Normal 3.5-5.0 [facility] Comment on above: Performed By: #### L 501.3620, L100.0100, [id number] #### [facility] [address] [place], [address] Albumin/Globulin [Mass ratio] 1.2 {ratio} Normal 0.9-2.4 [facility] Comment on above: Performed By: #### L 501.3620, L100.0100, [id number] #### [facility] [address] [place] [place], [address] ALK PHOS 94 U/L Normal 35-104 [facility] Comment on above: Performed By: #### L 501.3620, L100.0100, [id number] #### [facility] [address] [place], [address] ALT [Catalytic activity/Vol] 16 U/L Normal <=34 [facility] Comment on above: Performed By: #### L 501.3620, L100.0100, [id number] #### [facility] [address] [place], [address] AST [Catalytic activity/Vol] 21 U/L Normal <=31 [facility] Comment on above: Performed By: #### L 501.3620, L100.0100, [id number] #### [facility] [address] [place], [address] Bilirubin [Mass/Vol] 0.26 mg/dL Normal 0.00-1.30 [facility] Comment on above: Performed By: #### L 501.3620, L100.0100, [id number] #### [facility] [address] [place], [address] BUN/CRE 23.7 RATIO High 10-20 [facility] Comment on above: Performed By: #### L 501.3620, L100.0100, [id number] #### [facility] [address] [place], [address] Calcium [Mass/Vol] 9.3 mg/dL Normal 7.6-11.0 [facility] Comment on above: Performed By: #### L 501.3620, L100.0100, [id number] #### [facility] [address] [place], [address] Chloride [Moles/Vol] 105 mmol/L Normal 98-108 [facility] Comment on above: Performed By: #### L 501.3620, L100.0100, [id number] #### [facility] [address] [place], [address] CO2 [Moles/Vol] 24.2 mmol/L Normal 21.0-32.0 [facility] Comment on above: Performed By: #### L 501.3620, L100.0100, [id number] #### [facility] [address] [place], [address] Creatinine [Mass/Vol] 0.75 mg/dL Normal 0.70-1.20 [facility] Comment on above: Performed By: #### L 501.3620, L100.0100, [id number] #### [facility] [address] [place], [address] GAP 9 Normal 5-15 [facility] Comment on above: Performed By: #### L 501.3620, L100.0100, [id number] #### [facility] [address] [place], [address] GFR/1.73 sq M.predicted among non-blacks MDRD (S/P/Bld) [Vol rate/Area] 97 mL/min/{1.73_m2} Normal >60 [facility] Comment on above: Result Comment: mL/m in/1.73m2 CKD-EPI Creatinine Equation (2020) Performed By: #### L 501.3620, L100.0100, [id number] #### [facility] [address] [place], [address] Globulin (S) [Mass/Vol] 3.4 g/dL Normal 2.2-4.2 [facility] Comment on above: Performed By: #### L 501.3620, L100.0100, [id number] #### [facility] [address] [place], [address] Glucose [Mass/Vol] 81 mg/dL Normal 70-99 [facility] Comment on above: Performed By: #### L 501.3620, L100.0100, [id number] #### [facility] [address] [place], [address] Potassium [Moles/Vol] 4.9 mmol/L Normal 3.3-5.1 [facility] Comment on above: Performed By: #### L 501.3620, L100.0100, L500.4050 #### [facility] [address] [place], [address] Sodium [Moles/Vol] 138 mmol/L Normal 133-145 [facility] Comment on above: Performed By: #### L 501.3620, L100.0100, L500.4050 #### [facility] [address] [place], [address] T PROT 7.6 g/dL Normal 5.9-8.4 [facility] Comment on above: Performed By: #### L 501.3620, L100.0100, L500.4050 #### [facility] [address] [place], [address] Urea nitrogen [Mass/Vol] 18 mg/dL Normal 4-19 [facility] Comment on above: Performed By: #### L 501.3620, L100.0100, [id number] #### [facility] [address] [place], [address] Eosinophil percentageOrdered By: Loraine Mancilla on 06-28-2024 Eosinophils/100 WBC (Bld) 5.6 % High 0-5 [facility] Erythrocyte distribution wid th ratioOrdered By: Loraine Mancilla on 06-28-2024 Erythrocyte distribution width (RBC) [Ratio] 13.3 % 11.6-14.6 [facility] Erythrocyte distribution wid th standard deviationOrdered By: Loraine Mancilla on 06-28-2024 Erythrocyte distribution width (RBC) [Ratio] 41.1 fl 35.1-43.9 [facility] Glomerular filtration rate ( GFR) estimation/1.73 sq m using serum, plasma, or whole bOrdered By: Loraine Mancilla on 06-28-2024 GFR/1.73 sq M.predicted among non-blacks MDRD (S/P/Bld) [Vol rate/Area] 97 mL/min/{1.73_m2} >60 [facility] Comment on above: mL/min/1.73m2 CKD-EP I Creatinine Equation (2020) Hematocrit Auto (Bld) [Volum e fraction]Ordered By: Loraine Mancilla on 06-28-2024 Hematocrit (Bld) [Volume fraction] 38.4 % 37-47 [facility] Hemoglobin measurementOrdere d By: Loraine Mancilla on 06-28-2024 Hemoglobin (Bld) [Mass/Vol] 12.5 g/dL 12.0-15.0 [facility] Immature granulocytes/100 WB C Auto (Bld)Ordered By: Loraine Mancilla on 06-28-2024 Immature granulocytes/100 WBC (Bld) 0.500 % 0.0-0.9 [facility] Comment on above: IG% - Immature Granu locytes (promyelocytes, myelocytes and metamyelocytes) > 1% indicates that a LEFT SHIFT is Present. Laboratory - Chemistry and C hemistry - challengeOrdered By: Loraine Mancilla on 06-28-2024 AST [Catalytic activity/Vol] 21 U/L <32 [facility] MCV (mean corpuscular volume ) determinationOrdered By: Loraine Mancilla on 06-28-2024 MCV (RBC) [Entitic vol] 84.6 fL 81-99 [facility] Mean corpuscular hemoglobin (MCH) determinationOrdered By: Loraine Mancilla 06-28-2024 MCH (RBC) [Entitic mass] 27.5 pg 27.0-32.0 [facility] Mean corpuscular hemoglobin concentration (MCHC) determinationOrdered By: Loraine Mancilla on 06-28-2024 MCHC (RBC) [Mass/Vol] 32.6 g/dL 32-36 [facility] Mean platelet volume determi nationOrdered By: Loraine Mancilla on 06-28-2024 Platelet mean volume (Bld) [Entitic vol] 11.0 fL 6.2-12.0 [facility] Monocyte percentageOrdered B y: Loraine Mancilla on 06-28-2024 Monocytes/100 WBC (Bld) 5.8 % 0-10 [facility] Neutrophil percentageOrdered By: Loraine Mancilla on 06-28-2024 Neutrophils/100 WBC (Bld) 49.5 % 47-70 [facility] Nucleated red blood cell per centageOrdered By: Loraine Mancilla on 06-28-2024 Nucleated RBC/100 WBC (Bld) [Ratio] 0 % 0-5 [facility] Platelet countOrdered By: Kathy Mancilla on 06-28-2024 Platelets (Bld) [#/Vol] 221 10*3/uL 150-450 [facility] Potassium measurement (mass/ volume)Ordered By: Loraine Mancilla on 06-28-2024 Potassium (Unsp spec) [Mass/Vol] 4.9 mmol/L 3.3-5.1 [facility] RBC Auto (Bld) [#/Vol]Ordere d By: Loraine Mancilla on 06-28-2024 RBC (Bld) [#/Vol] 4.54 10*6/uL 4.2-5.4 [facility] Serum creatinine measurement (mass/volume)Ordered By: Loraine Mancilla on 06-28-2024 Creatinine [Mass/Vol] 0.75 mg/dL 0.70-1.20 [facility] Serum globulin measurementOr dered By: Loraine Mancilla on 06-28-2024 Globulin (S) [Mass/Vol] 3.4 g/dL 2.2-4.2 [facility] Serum glucose measurement (m ass/volume)Ordered By: Loraine Mancilla on 06-28-2024 Glucose [Mass/Vol] 81 mg/dL 70-99 [facility] Serum or plasma alanine garibay otransferase (ALT) measurementOrdered By: Loraine Mancilla on 06-28-2024 ALT [Catalytic activity/Vol] 16 U/L <35 [facility] Serum or plasma albumin nicole urement (mass/volume)Ordered By: Loraine Mancilla on 06-28-2024 Albumin [Mass/Vol] 4.2 g/dL 3.5-5.0 [facility] Serum or plasma albumin/glob ulin mass ratioOrdered By: Loraine Mancilla on 06-28-2024 Albumin/Globulin [Mass ratio] 1.2 {ratio} 0.9-2.4 [facility] Serum or plasma alkaline cynthia sphatase measurementOrdered By: Loraine Mancilla on 06-28-2024 ALP [Catalytic activity/Vol] 94 U/L 35-104 [facility] Serum or plasma calcium nicole urement (mass/volume)Ordered By: Loraine Mancilla on 06-28-2024 Calcium [Mass/Vol] 9.3 mg/dL 7.6-11.0 [facility] Serum or plasma creatine kin ase activityOrdered By: Loraine Mancilla on 06-28-2024 CK [Catalytic activity/Vol] 77 U/L 24-195 [facility] Serum or plasma urea nitroge n measurement (mass/volume)Ordered By: Loraine Mancilla on 06-28-2024 Urea nitrogen [Mass/Vol] 18 mg/dL - [facility] Sodium levelOrdered By: Meryl Mancilla on 06-28-2024 Sodium [Moles/Vol] 138 mmol/L 133-145 [facility] Total proteinOrdered By: Brady Mancilla on 06-28-2024 Protein [Mass/Vol] 7.6 g/dL 5.9-8.4 [facility] White blood cell (WBC) count Ordered By: Loraine Mancilla on 06-28-2024 WBC (Bld) [#/Vol] 5.5 10*3/uL 4.4-11.0 [facility] L Inj/Asp: R kneeon 06-05-19 Golden Maradiaga MD 06/04/2024 9:33 AM L Inj/Asp: R knee on 06/04/2024 9:32 AM Indications: pain Details: 18 G needle, ultrasound-guided superolateral approach Medications: 20 mg sodium hyaluronate 10 mg/mL(mw 2.4 -3.6 million) Procedure, treatment alternatives, risks and benefits explained, specific risks discussed. Immediately prior to procedure a time out was called to verify the correct patient, procedure, equipment, family support coordinator and site/side marked as required. Patient was prepped and draped in the usual sterile fashion. [facility] Work Phone: [facility] Work Phone: POINT OF CARE ULTRASOUND NO CHARGEon 06-04-2024 POINT OF CARE ULTRASOUND NO CHARGE These images are not reportable by radiology and will not be interpreted by Radiologists. Normal [facility] US Abdomenon 06-04-2024 These images are not reportable by radiology and will not be interpreted by Radiologists. IMAGING L Inj/Asp: R kneeon 05-29-19 Golden Maradiaga MD 05/28/2024 8:53 AM L Inj/Asp: R knee on 05/28/2024 8:52 AM Indications: pain Details: 18 G needle, ultrasound-guided superolateral approach Medications: 20 mg sodium hyaluronate 10 mg/mL(mw 2.4 -3.6 million) Procedure, treatment alternatives, risks and benefits explained, specific risks discussed. Immediately prior to procedure a time out was called to verify the correct patient, procedure, equipment, family support coordinator and site/side marked as required. Patient was prepped and draped in the usual sterile fashion. [facility] Work Phone: [facility] Work Phone: POINT OF CARE ULTRASOUND NO CHARGEon 05-28-2024 POINT OF CARE ULTRASOUND NO CHARGE These images are not reportable by radiology and will not be interpreted by Radiologists. Normal [facility] US Abdomenon 05-28-2024 These images are not reportable by radiology and will not be interpreted by Radiologists. IMAGING L Inj/Asp: R kneeon 05-22-19 Golden Maradiaga MD 05/21/2024 9:23 AM L Inj/Asp: R knee on 05/21/2024 9:23 AM Indications: pain Details: 18 G needle, ultrasound-guided superolateral approach Medications: 20 mg sodium hyaluronate 10 mg/mL(mw 2.4 -3.6 million) Procedure, treatment alternatives, risks and benefits explained, specific risks discussed. Immediately prior to procedure a time out was called to verify the correct patient, procedure, equipment, family support coordinator and site/side marked as required. Patient was prepped and draped in the usual sterile fashion. [facility] Work Phone: [facility] Work Phone: POINT OF CARE ULTRASOUND NO CHARGEon 05-21-2024 POINT OF CARE ULTRASOUND NO CHARGE These images are not reportable by radiology and will not be interpreted by Radiologists. Normal [facility] US Abdomenon 05-21-2024 These images are not reportable by radiology and will not be interpreted by Radiologists. IMAGING POINT OF CARE ULTRASOUND NO CHARGEon 05-06-2024 POINT OF CARE ULTRASOUND NO CHARGE These images are not reportable by radiology and will not be interpreted by Radiologists. Normal [facility] US Abdomenon 05-06-2024 These images are not reportable by radiology and will not be interpreted by Radiologists. IMAGING XR KNEE RIGHT 4+ VIEWSon XR KNEE RIGHT 4+ VIEWS Interpreted By: Lei Shaw, STUDY: XR KNEE RIGHT 4+ VIEWS; ; 05/06/2024 3:42 pm INDICATION: Signs/Symptoms:PRIMARY OSTEOARTHRITIS OF RIGHT KNEE. ,M17.11 Unilateral primary osteoarthritis, right knee COMPARISON: 02/21/2023 ACCESSION NUMBER(S): [id number] ORDERING CLINICIAN: GOLDEN MARADIAGA FINDINGS: Right knee, four views Severe medial and moderate lateral and patellofemoral compartment joint space narrowing with large osteophytosis. There is a moderate-sized effusion. There is no fracture or dislocation. IMPRESSION: Moderate to severe right knee osteoarthritis worse medially. Moderate-sized effusion MACRO: None Signed by: Lei Tran 05/07/2024 6:03 PM Dictation workstation: [id number] [facility] PREEMPT Chemodenervation: Mi graineon 04-16-2024 Jose Alvarez MD 2:12 PM PREEMPT Chemodenervation: Migraine Date/Time: 04/16/2024 1:45 PM Performed by: Jose Alvarez MD Authorized by: Jose Alvarez MD Comments: Description of Procedure: After discussing the risks and benefits of botulinum toxin, the patient provided informed consent. The patient was placed in the seated position on the examination table. The skin was prepped using alcohol pads. A 30-gauge, 0.5 inch-long needle was used with four 1 cc syringes. Concentration: Two 100 unit vials of botox were diluted into 4 ml of normal saline for a concentration of 50 units/1ml. A total of 155 units of botulinum toxin were used and injected as below (divided equally between left and right unless otherwise indicated): 20 units divided into 4 sites in the frontalis muscles 10 units divided into 2 sites in the card scraper muscles 5 units divided into 1 site in the procerus muscle 40 units divided into 8 sites in the temporalis muscles 30 units divided into 6 sites in the occipitalis muscles 30 units divided into 6 sites in the trapezius muscles 20 units divided into 4 sites in the cervical paraspinal muscles A total of 45 units were discarded as unavoidable waste. The patient tolerated the procedure well and left the clinic without any complications. [facility] Radiology Study observation (narrative) [facility] L Inj/Asp: R kneeon 03-25-19 Golden Maradiaga MD 03/25/2024 4:24 PM L Inj/Asp: R knee on 03/25/2024 4:23 PM Indications: pain Details: 18 G needle, ultrasound-guided superolateral approach Medications: 40 mg triamcinolone acetonide 40 mg/mL Procedure, treatment alternatives, risks and benefits explained, specific risks discussed. Consent was given by the patient. Immediately prior to procedure a time out was called to verify the correct patient, procedure, equipment, family support coordinator and site/side marked as required. Patient was prepped and draped in the usual sterile fashion. [facility] Work Phone: [facility] Work Phone: POINT OF CARE ULTRASOUND NO CHARGEon 03-25-2024 POINT OF CARE ULTRASOUND NO CHARGE These images are not reportable by radiology and will not be interpreted by Radiologists. Normal [facility] US Abdomenon 03-25-2024 These images are not reportable by radiology and will not be interpreted by Radiologists. IMAGING PREEMPT Chemodenervation: Mi neelameon 01-06-2024 Jose Alvarez MD 01/06/2024 4:00 PM PREEMPT Chemodenervation: Migraine Date/Time: 01/06/2024 3:15 PM Performed by: Jose Alvarez MD Authorized by: Jose Alvraez MD Comments: Description of Procedure: After discussing the risks and benefits of botulinum toxin, the patient provided informed consent. The patient was placed in the seated position on the examination table. The skin was prepped using alcohol pads. A 30-gauge, 0.5 inch-long needle was used with four 1 cc syringes. Concentration: Two 100 unit vials of botox were diluted into 4 ml of normal saline for a concentration of 50 units/1ml. A total of 105 units of botulinum toxin were used and injected as below (divided equally between left and right unless otherwise indicated): 20 units divided into 4 sites in the frontalis muscles 10 units divided into 2 sites in the card scraper muscles 5 units divided into 1 site in the procerus muscle 40 units divided into 8 sites in the temporalis muscles 30 units divided into 6 sites in the occipitalis muscles Cervical paraspinal muscles were not injected today Trapezius muscles were not injected today A total of 95 units were discarded as unavoidable waste. The patient tolerated the procedure well and left the clinic without any complications. [facility] Radiology Study observation (narrative) [facility] Hepatic function 2000 panelo n 01-01-2024 Albumin BCP dye [Mass/Vol] 4.5 g/dL Normal 3.4-5.0 [facility] Comment on above: Performed By: #### 5 8410-2 #### SRAVANI LOVE ([id number]) [facility] [address] [place] [address] ALP [Catalytic activity/Vol] 118 U/L High 33-110 [facility] Comment on above: Performed By: #### 5 8410-2 #### SRAVANI LOVE ([id number]) [facility] [address] [place], [place] [id number] ALT With P-5'-P [Catalytic activity/Vol] 23 U/L Normal 7-45 [facility] Comment on above: Result Comment: Glendy ents treated with Sulfasalazine may generate falsely decreased results for ALT. Performed By: #### 5 8410-2 #### SRAVANI LOVE ([id number]) [facility] [address] [place] [address] 38996 AST With P-5'-P [Catalytic activity/Vol] 20 U/L Normal 9-39 [facility] Comment on above: Performed By: #### 5 8410-2 #### SRAVANI LOVE ([id number]) [facility] [address] [place] [address] 66533 Bilirubin [Mass/Vol] 0.5 mg/dL Normal 0.0-1.2 [facility] Comment on above: Performed By: #### 5 8410-2 #### SRAVANI LOVE ([id number]) [facility] [address] [place] [address]70 Bilirubin.direct [Mass/Vol] 0.1 mg/dL Normal 0.0-0.3 [facility] Comment on above: Performed By: #### 5 8410-2 #### SRAVANI LOVE ([id number]) [facility] [address] [place] [address] 45358 Protein [Mass/Vol] 8.2 g/dL Normal 6.4-8.2 [facility] Comment on above: Performed By: #### 5 8410-2 #### SRAVANI LOVE ([id number]) [facility] [address] [place] [address] 61120 Smooth muscle Abon 4 Smooth muscle Ab IF Ql (S) Positive Abnormal Negative [facility] Comment on above: Performed By: #### 5 8410-2 #### SRAVANI LOVE ([id number]) [facility] [address] [place] [address] 03257 L Inj/Asp: R kneeon 12-25-19 Elif Miller, INSTRUMENT LENS GRINDER-CHIMNEY BUILDER 12/25/2023 8:23 PM L Inj/Asp: R knee on 12/25/2023 8:19 PM Indications: pain and joint swelling Details: 22 G needle, superolateral approach Medications: 40 mg triamcinolone acetonide 40 mg/mL Outcome: tolerated well, no immediate complications We discussed risk and benefits of cortisone injection, patient wishes to proceed via verbal consent. Skin was prepped with Betadine, vapo coolant spray and alcohol. Administered injection of 40 mg Kenalog, 3 cc 2% lidocaine and 3 cc of 0.25% bupivacaine. Patient tolerated injection well with lidocaine suppression. No active bleeding, bandage applied to site. Procedure, treatment alternatives, risks and benefits explained, specific risks discussed. Consent was given by the patient. Immediately prior to procedure a time out was called to verify the correct patient, procedure, equipment, family support coordinator and site/side marked as required. Patient was prepped and draped in the usual sterile fashion. [facility] Work Phone: [facility] Work Phone: TRANSTHORACIC ECHO (TTE) [facility] 12-16-2023 TRANSTHORACIC ECHO (TTE) [place] [address] [phone], TRANSTHORACIC ECHOCARDIOGRAM REPORT Patient Name: SURAJ Lin KENN Reading Physician: [id number] Stephon Olivares MD Study Date: 12/16/2023 Ordering Provider: [id number] BRIDGER EDOUARD MRN/PID: [id number] Fellow: Nurse: Date of /Age: 7 1975 / 48 years Lumite Injector: Anette Bansal [facility] Gender Assigned at F Additional Staff: : Height: 154.94 cm Admit Date: Weight: 98.88 kg Admission Status: Outpatient BSA / BMI: 1.96 m2 / 41.19 Department Location: [facility] Echo Lab kg/m2 Blood Pressure: 124 /76 mmHg Study Type: TRANSTHORACIC ECHO (TTE) LIMITED Diagnosis/ICD: Elevated Troponin-R79.89 CPT Codes: Echo Limited-36594 Study Detail: The following Echo studies were performed: 2D, M-Mode, Doppler and color flow. PHYSICIAN INTERPRETATION: Left Ventricle: Left ventricular ejection fraction is normal, calculated by Fonseca's biplane at 59%. There are no regional wall motion abnormalities. The left ventricular cavity size is normal. There is normal septal and mildly increased posterior left ventricular wall thickness. There is left ventricular concentric remodeling. Spectral Doppler shows a normal pattern of left ventricular diastolic filling. Left Atrium: The left atrium is normal in size. Right Ventricle: The right ventricle is normal in size. There is normal right ventricular global systolic function. Right Atrium: The right atrium is normal in size. Aortic Valve: The aortic valve is trileaflet. The aortic valve dimensionless index is 0.79. There is mild aortic valve regurgitation. The peak instantaneous gradient of the aortic valve is 10 mmHg. The mean gradient of the aortic valve is 6 mmHg. Mitral Valve: The mitral valve is normal in structure. There is mild mitral valve regurgitation. Tricuspid Valve: The tricuspid valve is structurally normal. There is trace tricuspid regurgitation. Pulmonic Valve: The pulmonic valve is structurally normal. There is no indication of pulmonic valve regurgitation. Pericardium: No pericardial effusion noted. Aorta: The aortic root is normal. Systemic Veins: The inferior vena cava appears normal in size, with IVC inspiratory collapse greater than 50%. CONCLUSIONS: 1. Left ventricular ejection fraction is normal, calculated by Fonseca's biplane at 59%. 2. There is normal right ventricular global systolic function. 3. Mild aortic valve regurgitation. 4. Overall, no significant changes compared to prior echocardiogram dated 10/20/2023. QUANTITATIVE DATA SUMMARY: 2D MEASUREMENTS: Normal Ranges: Ao Root d: 2.60 cm (2.0-3.7cm) LAs: 2.90 cm (2.7-4.0cm) IVSd: 0.68 cm (0.6-1.1cm) LVPWd: 0.97 cm (0.6-1.1cm) LVIDd: 4.48 cm (3.9-5.9cm) LVIDs: 3.22 cm LV Mass Index: 59.9 g/m2 LV % FS 28.1 % LA VOLUME: Normal Ranges: LA Vol A4C: 18.5 ml (22+/-6mL/m2) LA Vol A2C: 27.8 ml LA Vol BP: 25.2 ml LA Vol Index A4C: 9.4ml/m2 LA Vol Index A2C: 14.2 ml/m2 LA Vol Index BP: 12.8 ml/m2 LA Area A4C: 9.2 cm2 LA Area A2C: 12.5 cm2 LA Major Hettick A4C: 3.9 cm LA Major Hettick A2C: 4.8 cm LA Volume Index: 8.9 ml/m2 LA Vol A4C: 17.4 ml LA Vol A2C: 27.0 ml LA Vol Index BSA: 11.3 ml/m2 LV SYSTOLIC FUNCTION BY 2D PLANIMETRY (MOD): Normal Ranges: EF-A4C View: 61 % (>=55%) EF-A2C View: 58 % EF-Biplane: 59 % LV EF Reported: 59 % LV DIASTOLIC FUNCTION: Normal Ranges: MV Peak E: 0.90 m/s (0.7-1.2 m/s) MV Peak A: 0.85 m/s (0.42-0.7 m/s) E/A Ratio: 1.06 (1.0-2.2) MV e' 0.130 m/s (>8.0) MV lateral e' 0.14 m/s MV medial e' 0.12 m/s E/e' Ratio: 6.87 (<8.0) MITRAL VALVE: Normal Ranges: MV DT: 243 msec (150-240msec) AORTIC VALVE: Normal Ranges: AoV Vmax: 1.61 m/s (<=1.7m/s) AoV Peak P.4 mmHg (<20mmHg) AoV Mean P.0 mmHg (1.7-11.5mmHg) LVOT Max Zurdo: 1.26 m/s (<=1.1m/s) AoV VTI: 34.50 cm (18-25cm) LVOT VTI: 27.40 cm LVOT Diameter: 1.90 cm (1.8-2.4cm) AoV Area, VTI: 2.25 cm2 (2.5-5.5cm2) AoV Area,Vmax: 2.22 cm2 (2.5-4.5cm2) AoV Dimensionless Index: 0.79 AORTIC INSUFFICIENCY: AI Vmax: 3.80 m/s AI Half-time: 357 msec AI Decel Rate: 311.00 cm/s2 RIGHT VENTRICLE: RV Basal 3.96 cm RV Mid 2.96 cm RV Major 7.8 cm TAPSE: 21.2 mm RV s' 0.12 m/s [id number] Stephon Olivares MD Electronically signed on 12/16/2023 at 3:41:24 PM Final [facility] Heart TransthoracicOrdere d By: Stephon Olivares on 12-16-2023 Aortic Valve Area by Continuity of Peak Velocity 2.22 cm2 [facility] Work Phone: [phone] Aortic Valve Area by Continuity of VTI 2.25 cm2 [facility] Work Phone: [phone] AV mn grad 6 mmHg [facility] Work Phone: 39 AV pk grad 10 mmHg [facility] Work Phone: 39 AV pk zurdo 1.61 m/s [facility] Work Phone: 39 LA vol index A/L 12.8 ml/m2 [facility] Work Phone: 39 LV A4C EF 60.8 [facility] Work Phone: 39 LV Biplane EF 59 % [facility] Work Phone: 39 LV EF 59 % [facility] Work Phone: 39 LVIDd 4.48 cm [facility] Work Phone: 39 LVOT diam 1.9 cm [facility] Work Phone: [phone] MV E/A ratio 1.06 [facility] Work Phone: [phone] RV free wall pk S' 11.9 cm/s [facility] Work Phone: [phone] Tricuspid annular plane systolic excursion 2.1 cm [facility] Work Phone: [phone] [facility] Work Phone: [phone] [place] [address] [phone], TRANSTHORACIC ECHOCARDIOGRAM REPORT Patient Name: SURAJDANIA Gonzalez Physician: [id number] Stephon Olivares MD Study Date: 12/16/2023 Ordering Provider: [id number] BRIDGER EDOUARD MRN/PID: [id number] Fellow: Nurse: Date of /Age: 7 1975 / 48 years Lumite Injector: Anette Bansal [facility] Gender Assigned at F Additional Staff: : Height: 154.94 cm Admit Date: Weight: 98.88 kg Admission Status: Outpatient BSA / BMI: 1.96 m2 / 41.19 Department Location: [facility] Echo Lab kg/m2 Blood Pressure: 124 /76 mmHg Study Type: TRANSTHORACIC ECHO (TTE) LIMITED Diagnosis/ICD: Elevated Troponin-R79.89 CPT Codes: Echo Limited-84051 Study Detail: The following Echo studies were performed: 2D, M-Mode, Doppler and color flow. PHYSICIAN INTERPRETATION: Left Ventricle: Left ventricular ejection fraction is normal, calculated by Fonseca's biplane at 59%. There are no regional wall motion abnormalities. The left ventricular cavity size is normal. There is normal septal and mildly increased posterior left ventricular wall thickness. There is left ventricular concentric remodeling. Spectral Doppler shows a normal pattern of left ventricular diastolic filling. Left Atrium: The left atrium is normal in size. Right Ventricle: The right ventricle is normal in size. There is normal right ventricular global systolic function. Right Atrium: The right atrium is normal in size. Aortic Valve: The aortic valve is trileaflet. The aortic valve dimensionless index is 0.79. There is mild aortic valve regurgitation. The peak instantaneous gradient of the aortic valve is 10 mmHg. The mean gradient of the aortic valve is 6 mmHg. Mitral Valve: The mitral valve is normal in structure. There is mild mitral valve regurgitation. Tricuspid Valve: The tricuspid valve is structurally normal. There is trace tricuspid regurgitation. Pulmonic Valve: The pulmonic valve is structurally normal. There is no indication of pulmonic valve regurgitation. Pericardium: No pericardial effusion noted. Aorta: The aortic root is normal. Systemic Veins: The inferior vena cava appears normal in size, with IVC inspiratory collapse greater than 50%. CONCLUSIONS: 1. Left ventricular ejection fraction is normal, calculated by Fonseca's biplane at 59%. 2. There is normal right ventricular global systolic function. 3. Mild aortic valve regurgitation. 4. Overall, no significant changes compared to prior echocardiogram dated 10/20/2023. QUANTITATIVE DATA SUMMARY: 2D MEASUREMENTS: Normal Ranges: Ao Root d: 2.60 cm (2.0-3.7cm) LAs: 2.90 cm (2.7-4.0cm) IVSd: 0.68 cm (0.6-1.1cm) LVPWd: 0.97 cm (0.6-1.1cm) LVIDd: 4.48 cm (3.9-5.9cm) LVIDs: 3.22 cm LV Mass Index: 59.9 g/m2 LV % FS 28.1 % LA VOLUME: Normal Ranges: LA Vol A4C: 18.5 ml (22+/-6mL/m2) LA Vol A2C: 27.8 ml LA Vol BP: 25.2 ml LA Vol Index A4C: 9.4ml/m2 LA Vol Index A2C: 14.2 ml/m2 LA Vol Index BP: 12.8 ml/m2 LA Area A4C: 9.2 cm2 LA Area A2C: 12.5 cm2 LA Major Hettick A4C: 3.9 cm LA Major Hettick A2C: 4.8 cm LA Volume Index: 8.9 ml/m2 LA Vol A4C: 17.4 ml LA Vol A2C: 27.0 ml LA Vol Index BSA: 11.3 ml/m2 LV SYSTOLIC FUNCTION BY 2D PLANIMETRY (MOD): Normal Ranges: EF-A4C View: 61 % (>=55%) EF-A2C View: 58 % EF-Biplane: 59 % LV EF Reported: 59 % LV DIASTOLIC FUNCTION: Normal Ranges: MV Peak E: 0.90 m/s (0.7-1.2 m/s) MV Peak A: 0.85 m/s (0.42-0.7 m/s) E/A Ratio: 1.06 (1.0-2.2) MV e' 0.130 m/s (>8.0) MV lateral e' 0.14 m/s MV medial e' 0.12 m/s E/e' Ratio: 6.87 (<8.0) MITRAL VALVE: Normal Ranges: MV DT: 243 msec (150-240msec) AORTIC VALVE: Normal Ranges: AoV Vmax: 1.61 m/s (<=1.7m/s) AoV Peak P.4 mmHg (<20mmHg) AoV Mean P.0 mmHg (1.7-11.5mmHg) LVOT Max Zurdo: 1.26 m/s (<=1.1m/s) AoV VTI: 34.50 cm (18-25cm) LVOT VTI: 27.40 cm LVOT Diameter: 1.90 cm (1.8-2.4cm) AoV Area, VTI: 2.25 cm2 (2.5-5.5cm2) AoV Area,Vmax: 2.22 cm2 (2.5-4.5cm2) AoV Dimensionless Index: 0.79 AORTIC INSUFFICIENCY: AI Vmax: 3.80 m/s AI Half-ti (more content not included)... Stephon Dailey MD - 12/16/2023 [place] [address] [phone], TRANSTHORACIC ECHOCARDIOGRAM REPORT Patient Name: SURAJ HAWK Reading Physician: [id number] Stephon Olivares MD Study Date: 12/16/2023 Ordering Provider: [id number] BRIDGER DEOUARD MRN/PID: [id number] Fellow: Nurse: Date of /Age: 7 1975 / 48 years Lumite Injector: Anette Bansal RDCS Gender Assigned at F Additional Staff: : Height: 154.94 cm Admit Date: Weight: 98.88 kg Admission Status: Outpatient BSA / BMI: 1.96 m2 / 41.19 Department Location: [facility] Echo Lab kg/m2 Blood Pressure: 124 /76 mmHg Study Type: TRANSTHORACIC ECHO (TTE) LIMITED Diagnosis/ICD: Elevated Troponin-R79.89 CPT Codes: Echo Limited-81482 Study Detail: The following Echo studies were performed: 2D, M-Mode, Doppler and color flow. PHYSICIAN INTERPRETATION: Left Ventricle: Left ventricular ejection fraction is normal, calculated by Fonseca's biplane at 59%. There are no regional wall motion abnormalities. The left ventricular cavity size is normal. There is normal septal and mildly increased posterior left ventricular wall thickness. There is left ventricular concentric remodeling. Spectral Doppler shows a normal pattern of left ventricular diastolic filling. Left Atrium: The left atrium is normal in size. Right Ventricle: The right ventricle is normal in size. There is normal right ventricular global systolic function. Right Atrium: The right atrium is normal in size. Aortic Valve: The aortic valve is trileaflet. The aortic valve dimensionless index is 0.79. There is mild aortic valve regurgitation. The peak instantaneous gradient of the aortic valve is 10 mmHg. The mean gradient of the aortic valve is 6 mmHg. Mitral Valve: The mitral valve is normal in structure. There is mild mitral valve regurgitation. Tricuspid Valve: The tricuspid valve is structurally normal. There is trace tricuspid regurgitation. Pulmonic Valve: The pulmonic valve is structurally normal. There is no indication of pulmonic valve regurgitation. Pericardium: No pericardial effusion noted. Aorta: The aortic root is normal. Systemic Veins: The inferior vena cava appears normal in size, with IVC inspiratory collapse greater than 50%. CONCLUSIONS: 1. Left ventricular ejection fraction is normal, calculated by Fonseca's biplane at 59%. 2. There is normal right ventricular global systolic function. 3. Mild aortic valve regurgitation. 4. Overall, no significant changes compared to prior echocardiogram dated 10/20/2023. QUANTITATIVE DATA SUMMARY: 2D MEASUREMENTS: Normal Ranges: Ao Root d: 2.60 cm (2.0-3.7cm) LAs: 2.90 cm (2.7-4.0cm) IVSd: 0.68 cm (0.6-1.1cm) LVPWd: 0.97 cm (0.6-1.1cm) LVIDd: 4.48 cm (3.9-5.9cm) LVIDs: 3.22 cm LV Mass Index: 59.9 g/m2 LV % FS 28.1 % LA VOLUME: Normal Ranges: LA Vol A4C: 18.5 ml (22+/-6mL/m2) LA Vol A2C: 27.8 ml LA Vol BP: 25.2 ml LA Vol Index A4C: 9.4ml/m2 LA Vol Index A2C: 14.2 ml/m2 LA Vol Index BP: 12.8 ml/m2 LA Area A4C: 9.2 cm2 LA Area A2C: 12.5 cm2 LA Major Hettick A4C: 3.9 cm LA Major Hettick A2C: 4.8 cm LA Volume Index: 8.9 ml/m2 LA Vol A4C: 17.4 ml LA Vol A2C: 27.0 ml LA Vol Index BSA: 11.3 ml/m2 LV SYSTOLIC FUNCTION BY 2D PLANIMETRY (MOD): Normal Ranges: EF-A4C View: 61 % (>=55%) EF-A2C View: 58 % EF-Biplane: 59 % LV EF Reported: 59 % LV DIASTOLIC FUNCTION: Normal Ranges: MV Peak E: 0.90 m/s (0.7-1.2 m/s) MV Peak A: 0.85 m/s (0.42-0.7 m/s) E/A Ratio: 1.06 (1.0-2.2) MV e' 0.130 m/s (>8.0) MV lateral e' 0.14 m/s MV medial e' 0.12 m/s E/e' Ratio: 6.87 (<8.0) MITRAL VALVE: Normal Ranges: MV DT: 243 msec (150-240msec) AORTIC VALVE: Normal Ranges: AoV Vmax: 1.61 m/s (<=1.7m/s) AoV Peak P.4 mmHg (<20mmHg) AoV Mean P.0 mmHg (1.7-11.5mmHg) LVOT Max Zurdo: 1.26 m/s (<=1.1m/s) AoV VTI: 34.50 cm (18-25cm) LVOT VTI: 27.40 cm LVOT Diameter: 1.90 cm (1.8-2.4cm) AoV Area, VTI: 2.25 cm2 (2.5-5.5cm2) AoV Area,Vmax: 2.22 cm2 (2.5-4.5cm2) AoV Dimensionless Index: 0.79 AORTIC INSUFFICIENCY: AI Vmax: 3.80 m/s AI Half-time: 357 msec AI Decel Rate: 311.00 cm/s2 RIGHT VENTRICLE: RV Basal 3.96 cm RV Mid 2.96 cm RV Major 7.8 cm TAPSE: 21.2 mm RV s' 0.12 m/s [id number] Stephon Olivares MD Electronically signed on 12/16/2023 at 3:41:24 PM Final [facility] Work Phone: Pulmonary Visit Reporton Pulmonary Visit Report [facility] [place] [address] [place] [address] OFFICE VISIT Date of Service: 12/11/23 MR#: [id number] Acct: [id number] Name: SURAJ HAWK Rep #: [id number] : 1975 Provider: SOMMER Worthy Age/Sex: 48/F Location: [facility] Status: Signed Assessment and Plan Assessment and Plan (1) PND (post-nasal drip): Status: Chronic (2) Cough: Status: Chronic Qualifiers: Cough type: chronic Qualified Code(s): R05.3 - Chronic cough Orders: Orders Influenza Immunization Today J40 - Bronchitis, not specified as acute or chronic, J44.9 - Chronic obstructive pulmonary disease, unspecified Medications: New azelastine-fluticasone 137-50 mcg/spray administer into each nostril 1 spray intranasal BID 23 grams 6RF J40 - Bronchitis, not specified as acute or chronic albuterol-budesonide 90-80 mcg/actuation (Airsupra) as a single dose; may repeat up to 6 doses per day (12 inhalations) 2 inhalations inhalation TID PRN 10.7 grams 11RF shortness of breath J40 - Bronchitis, not specified as acute or chronic Refilled montelukast (Singulair) 10 mg PO QHS 30 tabs 11RF J40 - Bronchitis, not specified as acute or chronic Discontinued albuterol sulfate 90 mcg/actuation (ProAir HFA) Discontinued Reason: Order Changed 2 puffs inhalation Q4H PRN 18 grams 2RF shortness of breath or wheezing Plan Details Additional Comments: Fairly well-controlled. She does not appear to be in exacerbation today. I am going to switch her from albuterol to Airsupra. No additional testing at this time. Routine follow-up in 1 year. Annual influenza vaccination provided today. HPI 1 Y FU Chief Complaint: Routine follow-up HPI Comments Details: This patient presents to the office today for follow-up of her asthma. She is ambulatory and currently on room air. She has not recently been seen in the ED or urgent care for any respiratory illness. She has not required any antibiotics or prednisone for any breathing problems. She is not currently on any maintenance inhalers. She is compliant with the use of Claritin and Singulair daily. She has not recently needed her albuterol rescue inhaler. She denies any difficulty with shortness of breath. She does have a daily moist sounding cough. It is nonproductive. She has occasional sinus drainage and postnasal drip. She denies any wheezing, chest tightness, chest pain or palpitations. She has not had any fever, chills or body aches. 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 Required: No Accompanied by: Self Allergies sulfamethoxazole (From Bactrim) Allergy (Severe, Verified 12/11/23 07:36) unknown trimethoprim (From Bactrim) Allergy (Severe, Verified 12/11/23 07:36) unknown nickel Allergy (Mild, Verified 12/11/23 07:36) Rash Sulfa (Sulfonamide Antibiotics) Allergy (Unknown, Verified 12/11/23 07:36) Unknown Medications ???Medication ???Instructions ???Recorded ???Confirmed ???Type loratadine 10 mg tablet (Claritin) 10 mg PO QDAY 08/25/17 12/11/23 History naproxen 500 mg tablet 500 mg PO BID 05/30/23 12/11/23 History albuterol 90 mcg-budesonide 80 2 inh inhalation TID PRN shortness 12/11/23 12/11/23 Rx mcg/actuation HFA aerosol inhaler of breath #10.7 grams (Airsupra) azelastine 137 mcg-fluticasone 50 1 spray intranasal BID #23 grams 12/11/23 12/11/23 Rx mcg/spray nasal spray bimekizumab-bkzx 160 mg/mL 320 mg subcut Q8W 12/11/23 12/11/23 History subcutaneous auto-injector (Bimzelx Autoinjector) eletriptan 40 mg tablet 40 mg PO QD-BID PRN migraine 12/11/23 12/11/23 History montelukast 10 mg tablet 10 mg PO QHS #30 tabs 12/11/23 12/11/23 Rx (Singulair) rimegepant 75 mg disintegrating 75 mg PO Q OTHER DAY migraine 12/11/23 12/11/23 History tablet (Nurtec ODT) sertraline 100 mg tablet 100 mg PO QDAY 12/11/23 12/11/23 History PFSH Medical History (Updated 12/11/23 @ 10:54 by Matilda Worthy DONOR RECRUITMENT MANAGER, DONOR RECRUITMENT MANAGER-C) Wheezing Dyspnea Migraine Hyperlipidemia Allergic rhinitis Chronic cough Lung nodule Obesity Hoarseness Cough Bronchitis Sore throat Abnormal pulmonary function test Sinusitis Surgical History History of hysterectomy tubal ligation and ablasion Previous section H/O foot surgery F (more content not included)... [facility] LAB TEST Normal [facility] Comment on above: Order Comment: [id number] MYOMARKER SERUM [id number] MYOMARKER SERUM RF Result Comment: TEST RESULTS LIMITS MyoMarker 3 Plus Profile (RDL) Anti-Loraine-1 Ab (RDL) <20 Units <20 Anti-PL-7 Ab (RDL) Negative Negative Anti-PL-12 Ab (RDL) Negative Negative Anti-EJ Ab (RDL) Negative Negative Anti-OJ Ab (RDL) Negative Negative Anti-SRP Ab (RDL) Negative Negative Anti-Mi-2 Ab (RDL) Negative Negative Qtrm-AXX-5ghodt Ab (RDL) <20 Units <20 Anti-MDA-5 Ab (CADM-140)(RDL) <20 Units <20 Anti-NXP-2 (P140) Ab (RDL) <20 Units <20 Anti-SAE1 Ab, IgG (RDL) <20 Units <20 Anti-PM/Scl-100 Ab (RDL) <20 Units <20 Anti-Ku Ab (RDL) Negative Negative Anti-SS-A 52kD Ab, IgG (RDL) <20 Units <20 Anti-U1 FUR CUTTING MACHINE OPERATOR Ab (RDL) <20 Units <20 Anti-U2 FUR CUTTING MACHINE OPERATOR Ab (RDL) Negative Negative Anti-U3 FUR CUTTING MACHINE OPERATOR (Fibrillarin)(RDL) Negative Negative Interpretation for Anti-Loraine-1, [id number], Anti-MDA-5, Anti-NXP-2, Anti-SAE1, Anti-PM/Scl-100, Anti-SS-A 52 kD, Anti-U1 FUR CUTTING MACHINE OPERATOR: Negative: <20 Weak Positive: 20 - 39 Moderate Positive: 40 - 80 Strong Positive: >80 TESTING PERFORMED AT [facility]. ORIGINAL REPORT ON FILE IN LAB CONTAINS ADDITIONAL TEST SITE INFORMATION. Performed By: #### L 501.3620, L100.0100, L500.4050 #### [facility] [address] [place], [address] Comprehensive metabolic 2000 panelon 12-04-2023 Albumin BCP dye [Mass/Vol] 3.8 g/dL Normal 3.4-5.0 [facility] Comment on above: Performed By: #### 5 8410-2 #### SRAVANI LOVE ([id number]) [facility] [address] [place] [address] 53547 ALP [Catalytic activity/Vol] 95 U/L Normal 33-110 [facility] Comment on above: Performed By: #### 5 8410-2 #### SRAVANI LOVE ([id number]) [facility] [address] [place] [address] 24883 ALT With P-5'-P [Catalytic activity/Vol] 60 U/L High 7-45 [facility] Comment on above: Result Comment: Glendy ents treated with Sulfasalazine may generate falsely decreased results for ALT. Performed By: #### 5 8410-2 #### SRAVANI LOVE ([id number]) [facility] [address] [place] [address] Anion gap [Moles/Vol] 8 mmol/L Low 10-20 [facility] Comment on above: Performed By: #### 5 8410-2 #### SRAVANI LOVE ([id number]) [facility] [address] [place] [address] AST With P-5'-P [Catalytic activity/Vol] 56 U/L High 9-39 [facility] Comment on above: Performed By: #### 5 8410-2 #### SRAVANI LOVE ([id number]) [facility] [address] [place] [address] Bilirubin [Mass/Vol] 0.5 mg/dL Normal 0.0-1.2 [facility] Comment on above: Performed By: #### 5 8410-2 #### SRAVANI LOVE ([id number]) [facility] [address] [place] [address] Calcium [Mass/Vol] 9.2 mg/dL Normal 8.6-10.3 [facility] Comment on above: Performed By: #### 5 8410-2 #### SRAVANI LOVE ([id number]) [facility] [address] [place] [address] Chloride [Moles/Vol] 106 mmol/L Normal 98-107 [facility] Comment on above: Performed By: #### 5 8410-2 #### SRAVANI LOVE ([id number]) [facility] [address] [place] [address] CO2 [Moles/Vol] 29 mmol/L Normal 21-32 [facility] Comment on above: Performed By: #### 5 8410-2 #### SRAVANI LOVE ([id number]) [facility] [address] [place] [address] Creatinine [Mass/Vol] 0.66 mg/dL Normal 0.50-1.05 [facility] Comment on above: Performed By: #### 5 8410-2 #### SRAVANI LOVE ([id number]) [facility] [address] [place] [address] 80567 GFR/1.73 sq M.predicted MDRD (S/P/Bld) [Vol rate/Area] mL/min/{1.73_m2} Normal >60 [facility] Comment on above: Result Comment: Calc ulations of estimated GFR are performed using the 2020 CKD-EPI Study Refit equation without the race variable for the IDMS-Traceable creatinine methods. https://jasn.asnjournals.org/content/early//ASN.2020 448517 Performed By: #### 5 8410-2 #### SRAVANI LOVE ([id number]) [facility] [address] [place] [address] 79128 Glucose [Mass/Vol] 103 mg/dL High 74-99 [facility] Comment on above: Performed By: #### 5 8410-2 #### SRAVANI LOVE ([id number]) [facility] [address] [place] [address] 68986 Potassium [Moles/Vol] 3.8 mmol/L Normal 3.5-5.3 [facility] Comment on above: Performed By: #### 5 8410-2 #### SRAVANI LOVE ([id number]) [facility] [address] [place] [address] 86653 Protein [Mass/Vol] 7.0 g/dL Normal 6.4-8.2 [facility] Comment on above: Performed By: #### 5 8410-2 #### SRAVANI LOVE ([id number]) [facility] [address] [place] [address] 36744 Sodium [Moles/Vol] 139 mmol/L Normal 136-145 [facility] Comment on above: Performed By: #### 5 8410-2 #### SRAVANI LOVE ([id number]) [facility] [address] [place] [address] 40975 Urea nitrogen [Mass/Vol] 13 mg/dL Normal 6-23 [facility] Comment on above: Performed By: #### 5 8410-2 #### SRAVANI LOVE ([id number]) [facility] [address] [place] [address] Creatine kinaseon 12-04-2023 CK [Catalytic activity/Vol] 90 U/L Normal 0-215 [facility] Comment on above: Performed By: #### 5 8410-2 #### SRAVANI LOVE ([id number]) [facility] [address] [place] [address] Troponin I.cardiac panelon 1 Tropinin I.cardiac panel High sensitivity method 9 ng/L Normal 0-13 [facility] Comment on above: Order Comment: Less than 99th percentile of normal range cutoff-Female and children under 18 years old <14 ng/L; Male <21 ng/L: NegativeRepeat testing should be performed if clinically indicated.Female and children under 18 years old 14-50 ng/L; Male 21-50 ng/L:Consistent with possible cardiac damage and possible increased clinicalrisk. Serial measurements may help to assess extent of myocardial damage.>50 ng/L: Consistent with cardiac damage, increased clinical risk andmyocardial infarction. Serial measurements may help assess extent ofmyocardial damage.NOTE: Children less than 1 year old may have higher baseline troponinlevels and results should be interpreted in conjunction with the overallclinical context.NOTE: Troponin I testing is performed using a differenttesting methodology at [facility] than at [facility]. Direct result comparisons should onlybe made within the same method. Performed By: #### 5 8410-2 #### SRAVANI LOVE ([id number]) [facility] [address] [place] [address] 68959 Comprehensive metabolic 2000 panelon 11-20-2023 Albumin BCP dye [Mass/Vol] 3.4 g/dL Normal 3.4-5.0 [facility] Comment on above: Performed By: #### 2 4323-8 #### SRAVANI LOVE ([id number]) [facility] [address] [place] [address] 99971 ALP [Catalytic activity/Vol] 75 U/L Normal 33-110 [facility] Comment on above: Performed By: #### 2 432-8 #### SRAVANI LOVE ([id number]) [facility] [address] [place] [address] ALT With P-5'-P [Catalytic activity/Vol] 63 U/L High 7-45 [facility] Comment on above: Result Comment: Glendy ents treated with Sulfasalazine may generate falsely decreased results for ALT. Performed By: #### 2 4323-8 #### SRAVANI LOVE ([id number]) [facility] [address] [place] [address] 64776 Anion gap [Moles/Vol] 8 mmol/L Low 10-20 [facility] Comment on above: Performed By: #### 2 4322-8 #### SRAVANI LOVE ([id number]) [facility] [address] [place] [address] 56015 AST With P-5'-P [Catalytic activity/Vol] 50 U/L High 9-39 [facility] Comment on above: Performed By: #### 2 4322-8 #### SRAVANI LOVE ([id number]) [facility] [address] [place] [address] 14482 Bilirubin [Mass/Vol] 0.5 mg/dL Normal 0.0-1.2 [facility] Comment on above: Performed By: #### 2 4322-8 #### SRAVANI LOVE ([id number]) [facility] [address] [place] [address] 07760 Calcium [Mass/Vol] 9.0 mg/dL Normal 8.6-10.3 [facility] Comment on above: Performed By: #### 2 432-8 #### SRAVANI LOVE ([id number]) [facility] [address] [place] [address] Chloride [Moles/Vol] 109 mmol/L High 98-107 [facility] Comment on above: Performed By: #### 2 4323-8 #### SRAVANI LOVE ([id number]) [facility] [address] [place] [address] 44235 CO2 [Moles/Vol] 27 mmol/L Normal 21-32 [facility] Comment on above: Performed By: #### 2 4323-8 #### SRAVANI LOVE ([id number]) [facility] [address] [place] [address] 52220 Creatinine [Mass/Vol] 0.57 mg/dL Normal 0.50-1.05 [facility] Comment on above: Performed By: #### 2 4323-8 #### SRAVANI LOVE ([id number]) [facility] [address] [place] [address] 09009 GFR/1.73 sq M.predicted MDRD (S/P/Bld) [Vol rate/Area] mL/min/{1.73_m2} Normal >60 [facility] Comment on above: Result Comment: Calc ulations of estimated GFR are performed using the 2020 CKD-EPI Study Refit equation without the race variable for the IDMS-Traceable creatinine methods. https://jasn.asnjournals.org/content//ASN.2020 140274 Performed By: #### 2 4323-8 #### SRAVANI LOVE ([id number]) [facility] [address] [place] [address] 19112 Glucose [Mass/Vol] 125 mg/dL High 74-99 [facility] Comment on above: Performed By: #### 2 4323-8 #### SRAVANI LOVE ([id number]) [facility] [address] [place] [address] 20161 Potassium [Moles/Vol] 4.4 mmol/L Normal 3.5-5.3 [facility] Comment on above: Performed By: #### 2 4323-8 #### SRAVANI LOVE ([id number]) [facility] [address] [place] [address] 99316 Protein [Mass/Vol] 6.7 g/dL Normal 6.4-8.2 [facility] Comment on above: Performed By: #### 2 4323-8 #### SRAVANI LOVE ([id number]) [facility] [address] [place] [address] Sodium [Moles/Vol] 140 mmol/L Normal 136-145 [facility] Comment on above: Performed By: #### 2 4323-8 #### SRAVANI LOVE ([id number]) [facility] [address] [place] [address] Urea nitrogen [Mass/Vol] 10 mg/dL Normal 6-23 [facility] Comment on above: Performed By: #### 2 4323-8 #### SRAVANI LOVE ([id number]) [facility] [address] [place] [address] Creatine kinaseon 11-20-2023 CK [Catalytic activity/Vol] 69 U/L Normal 0-215 [facility] Comment on above: Performed By: #### 5 8410-2 #### SRAVANI LOVE ([id number]) [facility] [address] [place] [address] 37218 Troponin I.cardiac panelon 1 Tropinin I.cardiac panel High sensitivity method 2755 ng/L Critically high 0-34 [facility] Comment on above: Order Comment: Less than 99th percentile of normal range cutoff-Female and children under 18 years old <14 ng/L; Male <21 ng/L: NegativeRepeat testing should be performed if clinically indicated.Female and children under 18 years old 14-50 ng/L; Male 21-50 ng/L:Consistent with possible cardiac damage and possible increased clinicalrisk. Serial measurements may help to assess extent of myocardial damage.>50 ng/L: Consistent with cardiac damage, increased clinical risk andmyocardial infarction. Serial measurements may help assess extent ofmyocardial damage.NOTE: Children less than 1 year old may have higher baseline troponinlevels and results should be interpreted in conjunction with the overallclinical context.NOTE: Troponin I testing is performed using a differenttesting methodology at [facility] [place] [facility]. Direct result comparisons should onlybe made within the same method. Performed By: #### 5 8410-2 #### SRAVANI LOVE ([id number]) [facility] [address] [place] [address] Aldolaseon 11-19-2023 ALDOLASE 10.8 U/L High 3.3-10.3 [facility] Comment on above: Result Comment: Perf ormed at: [facility] [id number] Specialty Molder: Thomas Zamora PhD, Phone: [phone] Performed By: #### L 501.3620, L100.0100, L500.4050 #### [facility] [address] [place], [place], [address] CCP IgG Antibodieson 024 CCP IgG Ab. 11 units Normal 0-19 [facility] Comment on above: Result Comment: Nega tive <20 Weak positive 20 - 39 Moderate positive 40 - 59 Strong positive >59 Performed By: #### L 501.3620, L100.0100, L500.4050 #### [facility] [address] [place], [address] CBC W/Diff, Automatedon Absolute Lymph 1.30 X10 3/uL Normal 0.83-4.51 [facility] Comment on above: Performed By: #### L 500.4050, L801.1541, L4600.0100, L101.9900, L501.3620, L505.7010, L3100.7000, L400.2011, L501.6710, L100.0100, L501.0900 #### [facility] [address] [place], [address] Absolute Neut 2.4 X10 3/uL Normal 2.0-7.7 [facility] Comment on above: Performed By: #### L 500.4050, L801.1541, L4600.0100, L101.9900, L501.3620, L505.7010, L3100.7000, L400.2011, L501.6710, L100.0100, L501.0900 #### [facility] [address] [place], [address] Basophils/100 WBC (Bld) 2.1 % High 0-1 [facility] Comment on above: Performed By: #### L 500.4050, L801.1541, L4600.0100, L101.9900, L501.3620, L505.7010, L3100.7000, L400.2011, L501.6710, L100.0100, L501.0900 #### [facility] [address] [place], [address] Eosinophils/100 WBC (Bld) 21.1 % High 0-5 [facility] Comment on above: Performed By: #### L 500.4050, L801.1541, L4600.0100, L101.9900, L501.3620, L505.7010, L3100.7000, L400.2010, L501.6710, L100.0100, L501.0900 #### [facility] [address] [facility] [place], [address] Erythrocyte distribution width (RBC) [Ratio] 15.5 % High 11.6-14.6 [facility] Comment on above: Performed By: #### L 500.4050, L801.1541, L4600.0100, L101.9900, L501.3620, L505.7010, L3100.7000, L400.2010, L501.6710, L100.0100, L501.0900 #### [facility] [address] [place], [address] Hematocrit (Bld) [Volume fraction] 40.8 % Normal 37-47 [facility] Comment on above: Performed By: #### L 500.4050, L801.1541, L4600.0100, L101.9900, L501.3620, L505.7010, L3100.7000, L400.2011, L501.6710, L100.0100, L501.0900 #### [facility] [address] [place], [address] Hemoglobin (Bld) [Mass/Vol] 13.0 g/dL Normal 12.0-15.0 [facility] Comment on above: Performed By: #### L 500.4050, L801.1541, L4600.0100, L101.9900, L501.3620, L505.7010, L3100.7000, L400.2011, L501.6710, L100.0100, L501.0900 #### [facility] [address] [facility] [place], [address] IG% 0.400 Normal 0.0-0.9 [facility] Comment on above: Result Comment: IG% - Immature Granulocytes (promyelocytes, myelocytes and metamyelocytes) > 1% indicates that a LEFT SHIFT is Present. Performed By: #### L 500.4050, L801.1541, L4600.0100, L101.9900, L501.3620, L505.7010, L3100.7000, L400.2011, L501.6710, L100.0100, L501.0900 #### [facility] [address] [place], [address] Lymphocytes/100 WBC (Bld) 24.7 % Normal 19-41 [facility] Comment on above: Performed By: #### L 500.4050, L801.1541, L4600.0100, L101.9900, L501.3620, L505.7010, L3100.7000, L400.2011, L501.6710, L100.0100, L501.0900 #### [facility] [address] [facility] [place], [address] MCH (RBC) [Entitic mass] 27.2 pg Normal 27.0-32.0 [facility] Comment on above: Performed By: #### L 500.4050, L801.1541, L4600.0100, L101.9900, L501.3620, L505.7010, L3100.7000, L400.2011, L501.6710, L100.0100, L501.0900 #### [facility] [address] [place], [address] MCHC (RBC) [Mass/Vol] 31.9 g/dL Low 32-36 [facility] Comment on above: Performed By: #### L 500.4050, L801.1541, L4600.0100, L101.9900, L501.3620, L505.7010, L3100.7000, L400.2010, L501.6710, L100.0100, L501.0900 #### [facility] [address] [place], [address] MCV (RBC) [Entitic vol] 85.4 fL Normal 81-99 [facility] Comment on above: Performed By: #### L 500.4050, L801.1541, L4600.0100, L101.9900, L501.3620, L505.7010, L3100.7000, L400.2010, L501.6710, L100.0100, L501.0900 #### [facility] [address] [place], [address] Monocytes/100 WBC (Bld) 6.8 % Normal 0-10 [facility] Comment on above: Performed By: #### L 500.4050, L801.1541, L4600.0100, L101.9900, L501.3620, L505.7010, L3100.7000, L400.2010, L501.6710, L100.0100, L501.0900 #### [facility] [address] [place], [address] Neutrophils/100 WBC (Bld) 44.9 % Low 47-70 [facility] Comment on above: Performed By: #### L 500.4050, L801.1541, L4600.0100, L101.9900, L501.3620, L505.7010, L3100.7000, L400.2011, L501.6710, L100.0100, L501.0900 #### [facility] [address] [place], [address] Nucleated RBC (Bld) [#/Vol] 0 10*3/uL Normal 0-5 [facility] Comment on above: Performed By: #### L 500.4050, L801.1541, L4600.0100, L101.9900, L501.3620, L505.7010, L3100.7000, L400.2011, L501.6710, L100.0100, L501.0900 #### [facility] [address] [place], [address] Platelet mean volume (Bld) [Entitic vol] 10.6 fL Normal 6.2-12.0 [facility] Comment on above: Performed By: #### L 500.4050, L801.1541, L4600.0100, L101.9900, L501.3620, L505.7010, L3100.7000, L400.2010, L501.6710, L100.0100, L501.0900 #### [facility] [address] [place], [address] Platelets (Bld) [#/Vol] 251 10*3/uL Normal 150-450 [facility] Comment on above: Performed By: #### L 500.4050, L801.1541, L4600.0100, L101.9900, L501.3620, L505.7010, L3100.7000, L400.2011, L501.6710, L100.0100, L501.0900 #### [facility] [address] [place], [address] RBC (Bld) [#/Vol] 4.78 10*6/uL Normal 4.2-5.4 [facility] Comment on above: Performed By: #### L 500.4050, L801.1541, L4600.0100, L101.9900, L501.3620, L505.7010, L3100.7000, L400.2011, L501.6710, L100.0100, L501.0900 #### [facility] [address] [facility] [place], [address] RDW SD 48.5 fl High 35.1-43.9 [facility] Comment on above: Performed By: #### L 500.4050, L801.1541, L4600.0100, L101.9900, L501.3620, L505.7010, L3100.7000, L400.2011, L501.6710, L100.0100, L501.0900 #### [facility] [address] [facility] [place], [address] WBC (Bld) [#/Vol] 5.3 10*3/uL Normal 4.4-11.0 [facility] Comment on above: Performed By: #### L 500.4050, L801.1541, L4600.0100, L101.9900, L501.3620, L505.7010, L3100.7000, L400.2011, L501.6710, L100.0100, L501.0900 #### [facility] [address] [facility] [facility] [place], [address] CPK Total, Creatine Kinaseon 11-18-2023 CPK TOTAL 98 U/L Normal 26-192 [facility] Comment on above: Performed By: #### L 500.4050, L801.1541, L4600.0100, L101.9900, L501.3620, L505.7010, L3100.7000, L400.2011, L501.6710, L100.0100, L501.0900 #### [facility] [address] [place], [place], [address] CRPon 11-18-2023 C-REACTIVE PROT 5.15 mg/L High 0.0-3.0 [facility] Comment on above: Result Comment: C-Re active Protein (CRP) provides useful information for the diagnosis, therapy and monitoring of inflammatory processes and associated diseases. For the evaluation of Relative Risk for Cardiovascular Disease, a High Sensitivity CRP (HSCRP) should be ordered. Performed By: #### L 500.4050, L801.1541, L4600.0100, L101.9900, L501.3620, L505.7010, L3100.7000, L400.2011, L501.6710, L100.0100, L501.0900 #### [facility] [address] [place], [address] Comprehensive Metabolic Prof ilon 11-18-2023 Albumin [Mass/Vol] 3.4 g/dL Normal 3.2-5.0 [facility] Comment on above: Performed By: #### L 500.4050, L801.1541, L4600.0100, L101.9900, L501.3620, L505.7010, L3100.7000, L400.2010, L501.6710, L100.0100, L501.0900 #### [facility] [address] [place], [place], [address] Albumin/Globulin [Mass ratio] 0.8 {ratio} Low 0.9-2.4 [facility] Comment on above: Performed By: #### L 500.4050, L801.1541, L4600.0100, L101.9900, L501.3620, L505.7010, L3100.7000, L400.2011, L501.6710, L100.0100, L501.0900 #### [facility] [address] [place], [address] ALK P 93 U/L Normal 45-117 [facility] Comment on above: Performed By: #### L 500.4050, L801.1541, L4600.0100, L101.9900, L501.3620, L505.7010, L3100.7000, L400.2011, L501.6710, L100.0100, L501.0900 #### [facility] [address] [place], [address] ALT [Catalytic activity/Vol] 97 U/L High 13-56 [facility] Comment on above: Performed By: #### L 500.4050, L801.1541, L4600.0100, L101.9900, L501.3620, L505.7010, L3100.7000, L400.2010, L501.6710, L100.0100, L501.0900 #### [facility] [address] [place], [address] AST [Catalytic activity/Vol] 82 U/L High 15-37 [facility] Comment on above: Performed By: #### L 500.4050, L801.1541, L4600.0100, L101.9900, L501.3620, L505.7010, L3100.7000, L400.2010, L501.6710, L100.0100, L501.0900 #### [facility] [address] [place], [address] Bilirubin [Mass/Vol] 0.60 mg/dL Normal 0.20-1.00 [facility] Comment on above: Result Comment: For patients on eltrombopag therapy, use of Dimension [place] TBIL is not recommended. Performed By: #### L 500.4050, L801.1541, L4600.0100, L101.9900, L501.3620, L505.7010, L3100.7000, L400.2010, L501.6710, L100.0100, L501.0900 #### [facility] [address] [place], [address] BUN/CRE 17.0 RATIO Normal 10-20 [facility] Comment on above: Performed By: #### L 500.4050, L801.1541, L4600.0100, L101.9900, L501.3620, L505.7010, L3100.7000, L400.2010, L501.6710, L100.0100, L501.0900 #### [facility] [address] [place], [address] CA,Total 9.8 mg/dL Normal 8.5-10.1 [facility] Comment on above: Performed By: #### L 500.4050, L801.1541, L4600.0100, L101.9900, L501.3620, L505.7010, L3100.7000, L400.2010, L501.6710, L100.0100, L501.0900 #### [facility] [address] [place], [address] Chloride [Moles/Vol] 108 mmol/L High 98-107 [facility] Comment on above: Performed By: #### L 500.4050, L801.1541, L4600.0100, L101.9900, L501.3620, L505.7010, L3100.7000, L400.2010, L501.6710, L100.0100, L501.0900 #### [facility] [address] [place], [address] CO2 [Moles/Vol] 24.0 mmol/L Normal 21.0-32.0 [facility] Comment on above: Performed By: #### L 500.4050, L801.1541, L4600.0100, L101.9900, L501.3620, L505.7010, L3100.7000, L400.2011, L501.6710, L100.0100, L501.0900 #### [facility] [address] [place], [place], [phone] (173) Creatinine [Mass/Vol] 0.65 mg/dL Normal 0.55-1.02 [facility] Comment on above: Result Comment: The validity of the calculated GFR GFRAA in patients over 70 years has not been determined. Clinical correlation is essential. Performed By: #### L 500.4050, L801.1541, L4600.0100, L101.9900, L501.3620, L505.7010, L3100.7000, L400.2011, L501.6710, L100.0100, L501.0900 #### [facility] [address] [place], [place], [phone] (195) EST GFR - AA 124 mL/min Normal >60 [facility] Comment on above: Result Comment: Afri can Chilean GFR Calc Performed By: #### L 500.4050, L801.1541, L4600.0100, L101.9900, L501.3620, L505.7010, L3100.7000, L400.2011, L501.6710, L100.0100, L501.0900 #### [facility] [address] [place], [address] GAP 8 Normal 5-15 [facility] Comment on above: Performed By: #### L 500.4050, L801.1541, L4600.0100, L101.9900, L501.3620, L505.7010, L3100.7000, L400.2011, L501.6710, L100.0100, L501.0900 #### [facility] [address] [place], [address] GFR/1.73 sq M.predicted among non-blacks MDRD (S/P/Bld) [Vol rate/Area] 103 mL/min/{1.73_m2} Normal >60 [facility] Comment on above: Result Comment: Non- GFR Calc Performed By: #### L 500.4050, L801.1541, L4600.0100, L101.9900, L501.3620, L505.7010, L3100.7000, L400.2011, L501.6710, L100.0100, L501.0900 #### [facility] [address] [place], [address] Globulin (S) [Mass/Vol] 4.2 g/dL Normal 2.2-4.2 [facility] Comment on above: Performed By: #### L 500.4050, L801.1541, L4600.0100, L101.9900, L501.3620, L505.7010, L3100.7000, L400.2010, L501.6710, L100.0100, L501.0900 #### [facility] [address] [place], [address] Glucose [Mass/Vol] 78 mg/dL Normal 74-106 [facility] Comment on above: Performed By: #### L 500.4050, L801.1541, L4600.0100, L101.9900, L501.3620, L505.7010, L3100.7000, L400.2010, L501.6710, L100.0100, L501.0900 #### [facility] [address] [place], [address] Potassium [Moles/Vol] 4.6 mmol/L Normal 3.5-5.1 [facility] Comment on above: Performed By: #### L 500.4050, L801.1541, L4600.0100, L101.9900, L501.3620, L505.7010, L3100.7000, L400.2011, L501.6710, L100.0100, L501.0900 #### [facility] [address] [place], [address] Sodium [Moles/Vol] 140 mmol/L Normal 136-145 [facility] Comment on above: Performed By: #### L 500.4050, L801.1541, L4600.0100, L101.9900, L501.3620, L505.7010, L3100.7000, L400.2011, L501.6710, L100.0100, L501.0900 #### [facility] [address] [place], [address] T PROT 7.6 g/dL Normal 6.4-8.2 [facility] Comment on above: Performed By: #### L 500.4050, L801.1541, L4600.0100, L101.9900, L501.3620, L505.7010, L3100.7000, L400.2010, L501.6710, L100.0100, L501.0900 #### [facility] [address] [place] [place], [address] Urea nitrogen [Mass/Vol] 11 mg/dL Normal 7-18 [facility] Comment on above: Performed By: #### L 500.4050, L801.1541, L4600.0100, L101.9900, L501.3620, L505.7010, L3100.7000, L400.2010, L501.6710, L100.0100, L501.0900 #### [facility] [address] [place], [address] Erythrocyte Sed Rateon 11-17 SED RATE 9 mm/hr Normal 0-30 [facility] Comment on above: Performed By: #### L 500.4050, L801.1541, L4600.0100, L101.9900, L501.3620, L505.7010, L3100.7000, L400.2011, L501.6710, L100.0100, L501.0900 #### [facility] [address] [place], [address] Protein+Creatinine Ratio,Uri neon 11-18-2023 PROT:CRE RATIO 115 mg/g CRE Normal 0-200 [facility] Comment on above: Performed By: #### L 500.4050, L801.1541, L4600.0100, L101.9900, L501.3620, L505.7010, L3100.7000, L400.2011, L501.6710, L100.0100, L501.0900 #### [facility] [address] [place], [address] Protein (U) [Mass/Vol] 10.1 mg/dL Normal <11.9 [facility] Comment on above: Performed By: #### L 500.4050, L801.1541, L4600.0100, L101.9900, L501.3620, L505.7010, L3100.7000, L400.2010, L501.6710, L100.0100, L501.0900 #### [facility] [address] [place], [address] UR CREAT 88.00 mg/dL Normal NO RANGE EST. [facility] Comment on above: Performed By: #### L 500.4050, L801.1541, L4600.0100, L101.9900, L501.3620, L505.7010, L3100.7000, L400.2010, L501.6710, L100.0100, L501.0900 #### [facility] [address] [place], [address] Rheumatoid Factoron 11-18-19 24 RHEUMATOID FAC 10.0 IU/mL Normal <15 [facility] Comment on above: Performed By: #### L 501.3620, L100.0100, L500.4050 #### [facility] [address] [place], [place], [id number] Urinalysis, Routine (Dipstic k)on 11-18-2023 BILIRUBIN URINE Negative Normal Negative [facility] Comment on above: Order Comment: CLEAN CATCH Performed By: #### L 500.4050, L801.1541, L4600.0100, L101.9900, L501.3620, L505.7010, L3100.7000, L400.2011, L501.6710, L100.0100, L501.0900 #### [facility] [address] [place], [place], [id number] Clarity (U) Sl. Cloudy Normal Clear [facility] Comment on above: Order Comment: CLEAN CATCH Performed By: #### L 500.4050, L801.1541, L4600.0100, L101.9900, L501.3620, L505.7010, L3100.7000, L400.2011, L501.6710, L100.0100, L501.0900 #### [facility] [address] [place], [place], [phone] Color (U) Yellow Normal Yellow [facility] Comment on above: Order Comment: CLEAN CATCH Performed By: #### L 500.4050, L801.1541, L4600.0100, L101.9900, L501.3620, L505.7010, L3100.7000, L400.2011, L501.6710, L100.0100, L501.0900 #### [facility] [address] [place], [place], [phone] GLUCOSE, UR Normal Normal Normal [facility] Comment on above: Order Comment: CLEAN CATCH Performed By: #### L 500.4050, L801.1541, L4600.0100, L101.9900, L501.3620, L505.7010, L3100.7000, L400.2011, L501.6710, L100.0100, L501.0900 #### [facility] [address] [place], [place], [id number] KETONE UR Negative Normal Negative [facility] Comment on above: Order Comment: CLEAN CATCH Performed By: #### L 500.4050, L801.1541, L4600.0100, L101.9900, L501.3620, L505.7010, L3100.7000, L400.2011, L501.6710, L100.0100, L501.0900 #### [facility] [address] [place], [address] LEUK ESTERASE 25 /ul Abnormal Negative [facility] Comment on above: Order Comment: CLEAN CATCH Performed By: #### L 500.4050, L801.1541, L4600.0100, L101.9900, L501.3620, L505.7010, L3100.7000, L400.2010, L501.6710, L100.0100, L501.0900 #### [facility] [address] [place], [address] Nitrite Ql (U) Negative Normal Negative [facility] Comment on above: Order Comment: CLEAN CATCH Performed By: #### L 500.4050, L801.1541, L4600.0100, L101.9900, L501.3620, L505.7010, L3100.7000, L400.2010, L501.6710, L100.0100, L501.0900 #### [facility] [address] [place], [address] OCCULT BLOOD-UR Negative Normal Negative [facility] Comment on above: Order Comment: CLEAN CATCH Performed By: #### L 500.4050, L801.1541, L4600.0100, L101.9900, L501.3620, L505.7010, L3100.7000, L400.2011, L501.6710, L100.0100, L501.0900 #### [facility] [address] [place], [address] pH UR 6.0 Normal 5.0 - 8.0 [facility] Comment on above: Order Comment: CLEAN CATCH Performed By: #### L 500.4050, L801.1541, L4600.0100, L101.9900, L501.3620, L505.7010, L3100.7000, L400.2011, L501.6710, L100.0100, L501.0900 #### [facility] [address] [place], [address] PROT DIPSTX Negative Normal Negative [facility] Comment on above: Order Comment: CLEAN CATCH Performed By: #### L 500.4050, L801.1541, L4600.0100, L101.9900, L501.3620, L505.7010, L3100.7000, L400.2010, L501.6710, L100.0100, L501.0900 #### [facility] [address] [place], [address] SP.GR. DIPSTX 1.015 Normal 1.002-1.030 [facility] Comment on above: Order Comment: CLEAN CATCH Performed By: #### L 500.4050, L801.1541, L4600.0100, L101.9900, L501.3620, L505.7010, L3100.7000, L400.2010, L501.6710, L100.0100, L501.0900 #### [facility] [address] [place], [address] UROBILI Normal Normal Normal [facility] Comment on above: Order Comment: CLEAN CATCH Performed By: #### L 500.4050, L801.1541, L4600.0100, L101.9900, L501.3620, L505.7010, L3100.7000, L400.2010, L501.6710, L100.0100, L501.0900 #### [facility] [address], [address] Comprehensive metabolic 2000 panelon 11-13-2023 Albumin BCP dye [Mass/Vol] 3.3 g/dL Low 3.4-5.0 [facility] Comment on above: Performed By: #### 2 4323-8 #### SRAVANI LOVE ([id number]) [facility] [address] [place] [address] ALP [Catalytic activity/Vol] 68 U/L Normal 33-110 [facility] Comment on above: Performed By: #### 2 4323-8 #### SRAVANI LOVE ([id number]) [facility] [address] [place] [address] 17296 ALT With P-5'-P [Catalytic activity/Vol] 74 U/L High 7-45 [facility] Comment on above: Result Comment: Glendy ents treated with Sulfasalazine may generate falsely decreased results for ALT. Performed By: #### 2 4323-8 #### SRAVANI LOVE ([id number]) [facility] [address] [place] [address] 81882 Anion gap [Moles/Vol] 8 mmol/L Low 10-20 [facility] Comment on above: Performed By: #### 2 4323-8 #### SRAVANI LOVE ([id number]) [facility] [address] [place] [address] 54528 AST With P-5'-P [Catalytic activity/Vol] 58 U/L High 9-39 [facility] Comment on above: Performed By: #### 2 4323-8 #### SRAVANI LOVE ([id number]) [facility] [address] [place] [address] 22892 Bilirubin [Mass/Vol] 0.4 mg/dL Normal 0.0-1.2 [facility] Comment on above: Performed By: #### 2 4323-8 #### SRAVANI LOVE ([id number]) [facility] [place] [address] Calcium [Mass/Vol] 9.3 mg/dL Normal 8.6-10.3 [facility] Comment on above: Performed By: #### 2 4323-8 #### SRAVANI LOVE ([id number]) [facility] [address] [place] [address] 89837 Chloride [Moles/Vol] 107 mmol/L Normal 98-107 [facility] Comment on above: Performed By: #### 2 4323-8 #### SRAVANI LOVE ([id number]) [facility] [address] [place] [address] 54248 CO2 [Moles/Vol] 30 mmol/L Normal 21-32 [facility] Comment on above: Performed By: #### 2 4323-8 #### SRAVANI LOVE ([id number]) [facility] [address] [place] [address] 15281 Creatinine [Mass/Vol] 0.55 mg/dL Normal 0.50-1.05 [facility] Comment on above: Performed By: #### 2 4323-8 #### SRAVANI LOVE ([id number]) [facility] [address] [place] [address] GFR/1.73 sq M.predicted MDRD (S/P/Bld) [Vol rate/Area] mL/min/{1.73_m2} Normal >60 [facility] Comment on above: Result Comment: Calc ulations of estimated GFR are performed using the 2020 CKD-EPI Study Refit equation without the race variable for the IDMS-Traceable creatinine methods. https://jasn.asnjournals.org/content/early//ASN.2020 960372 Performed By: #### 2 4323-8 #### SRAVANI LOVE ([id number]) [facility] [address] [place] [address] 25008 Glucose [Mass/Vol] 115 mg/dL High 74-99 [facility] Comment on above: Performed By: #### 2 4323-8 #### SRAVANI LOVE ([id number]) [facility] [address] [place] [address] 16806 Potassium [Moles/Vol] 4.9 mmol/L Normal 3.5-5.3 [facility] Comment on above: Performed By: #### 2 4323-8 #### SRAVANI LOVE ([id number]) [facility] [address] [place] [address] 44764 Protein [Mass/Vol] 6.5 g/dL Normal 6.4-8.2 [facility] Comment on above: Performed By: #### 2 4323-8 #### SRAVANI LOVE ([id number]) [facility] [address] [place] [address] 46169 Sodium [Moles/Vol] 140 mmol/L Normal 136-145 [facility] Comment on above: Performed By: #### 2 4323-8 #### SRAVANI LOVE ([id number]) [facility] [address] [place] [address] 09945 Urea nitrogen [Mass/Vol] 12 mg/dL Normal 6-23 [facility] Comment on above: Performed By: #### 2 4323-8 #### SRAVANI LOVE ([id number]) [facility] [address] [place] [address] 83833 Creatine kinaseon 11-13-2023 CK [Catalytic activity/Vol] 145 U/L Normal 0-215 [facility] Comment on above: Performed By: #### 2 157-6 #### SRAVAIN LOVE ([id number]) [facility] [address] [place] [address] 63130 BI MAMMO BILATERAL SCREENING TOMOSYNTHESISon 11-12-2023 BI MAMMO BILATERAL SCREENING TOMOSYNTHESIS Interpreted By: Hunter Riggs, STUDY: BI MAMMO BILATERAL SCREENING TOMOSYNTHESIS; 11/12/2023 7:46 am ACCESSION NUMBER(S): [id number] ORDERING CLINICIAN: KINGSLEY HUTCHINS INDICATION: Screening. COMPARISON: Digital mammograms dated 11/04/2022 FINDINGS: CC and MLO 2D digital mammograms and digital breast tomosynthesis images were obtained of the bilateral breasts. 3-D volume images were reconstructed in 4 views at an independent workstation as 1 mm slices through the breasts in both the CC and MLO projections. Density: There are scattered areas of fibroglandular density. No discrete mass or focal asymmetry is identified. No suspicious microcalcifications or foci of architectural distortion are seen. There has been no significant change. This study was interpreted with CAD. IMPRESSION: No mammographic evidence of malignancy. BI-RADS CATEGORY: BI-RADS Category: 1 Negative. Recommendation: Routine Screening Mammogram in 1 Year. Recommended Date: 1 Year. Laterality: Bilateral. MACRO: None Signed by: Hunter Riggs 11/12/2023 10:59 AM Dictation workstation: [id number] [facility] DBT Breast - bilateralon No mammographic evidence of malignancy. BI-RADS CATEGORY: BI-RADS Category: 1 Negative. Recommendation: Routine Screening Mammogram in 1 Year. Recommended Date: 1 Year. Laterality: Bilateral. MACRO: None Signed by: Hunter Riggs 11/12/2023 10:59 AM Dictation workstation: [id number] MMODAL Interpreted By: Hunter Riggs, STUDY: BI MAMMO BILATERAL SCREENING TOMOSYNTHESIS; 11/12/2023 7:46 am ACCESSION NUMBER(S): [id number] ORDERING CLINICIAN: KINGSLEY HUTCHINS INDICATION: Screening. COMPARISON: Digital mammograms dated 11/04/2022 FINDINGS: CC and MLO 2D digital mammograms and digital breast tomosynthesis images were obtained of the bilateral breasts. 3-D volume images were reconstructed in 4 views at an independent workstation as 1 mm slices through the breasts in both the CC and MLO projections. Density: There are scattered areas of fibroglandular density. No discrete mass or focal asymmetry is identified. No suspicious microcalcifications or foci of architectural distortion are seen. There has been no significant change. This study was interpreted with CAD. MMODAL Hunter Riggs MD - 11/12/2023 Interpreted By: Hunter Riggs, STUDY: BI MAMMO BILATERAL SCREENING TOMOSYNTHESIS; 11/12/2023 7:46 am ACCESSION NUMBER(S): [id number] ORDERING CLINICIAN: KINGSLEY HUTCHINS INDICATION: Screening. COMPARISON: Digital mammograms dated 11/04/2022 FINDINGS: CC and MLO 2D digital mammograms and digital breast tomosynthesis images were obtained of the bilateral breasts. 3-D volume images were reconstructed in 4 views at an independent workstation as 1 mm slices through the breasts in both the CC and MLO projections. Density: There are scattered areas of fibroglandular density. No discrete mass or focal asymmetry is identified. No suspicious microcalcifications or foci of architectural distortion are seen. There has been no significant change. This study was interpreted with CAD. IMPRESSION: No mammographic evidence of malignancy. BI-RADS CATEGORY: BI-RADS Category: 1 Negative. Recommendation: Routine Screening Mammogram in 1 Year. Recommended Date: 1 Year. Laterality: Bilateral. MACRO: None Signed by: Hunter Riggs 11/12/2023 10:59 AM Dictation workstation: [id number] [facility] Work Phone: Radiology Study observation (narrative) [facility] Work Phone: DBT Breast - bilateralOrdere d By: Hunter Riggs on 11-12-2023 [facility] Work Phone: Basic metabolic 2000 panelon 11-07-2023 Anion gap [Moles/Vol] 9 mmol/L Low 10-20 [facility] Comment on above: Performed By: #### 2 4321-2 #### SRAVANI LOVE ([id number]) [facility] [address] [place] [address] 11619 Calcium [Mass/Vol] 10.0 mg/dL Normal 8.6-10.3 [facility] Comment on above: Performed By: #### 2 4321-2 #### SRAVANI LOVE ([id number]) [facility] [address] [place] [address] 96111 Chloride [Moles/Vol] 103 mmol/L Normal 98-107 [facility] Comment on above: Performed By: #### 2 4321-2 #### SRAVANI LOVE ([id number]) [facility] [address] [place] [address] 12932 CO2 [Moles/Vol] 30 mmol/L Normal 21-32 [facility] Comment on above: Performed By: #### 2 4321-2 #### SRAVANI LOVE ([id number]) [facility] [address] [place] [address] 81866 Creatinine [Mass/Vol] 0.55 mg/dL Normal 0.50-1.05 [facility] Comment on above: Performed By: #### 2 432-2 #### SRAVANI LOVE ([id number]) [facility] [address] [place] [address] 87246 GFR/1.73 sq M.predicted MDRD (S/P/Bld) [Vol rate/Area] mL/min/{1.73_m2} Normal >60 [facility] Comment on above: Result Comment: Calc ulations of estimated GFR are performed using the 2020 CKD-EPI Study Refit equation without the race variable for the IDMS-Traceable creatinine methods. https://jasn.asnjournals.org/content/early//ASN.2020 932443 Performed By: #### 2 432-2 #### SRAVANI LOVE ([id number]) [facility] [address] [place] [address] 46270 Glucose [Mass/Vol] 147 mg/dL High 74-99 [facility] Comment on above: Performed By: #### 2 4321-2 #### SRAVANI LOVE ([id number]) [facility] [address] [place] [address] 18495 Potassium [Moles/Vol] 4.2 mmol/L Normal 3.5-5.3 [facility] Comment on above: Performed By: #### 2 4321-2 #### SRAVANI LOVE ([id number]) [facility] [address] [place] [address] 82273 Sodium [Moles/Vol] 138 mmol/L Normal 136-145 [facility] Comment on above: Performed By: #### 2 4321-2 #### SRAVANI LOVE ([id number]) [facility] [address] [place] [address] 67498 Urea nitrogen [Mass/Vol] 19 mg/dL Normal 6-23 [facility] Comment on above: Performed By: #### 2 4321-2 #### SRAVANI LOVE ([id number]) [facility] [address] [place] [address] 82842 Creatine kinaseon 11-07-2023 CK [Catalytic activity/Vol] 409 U/L High 0-215 [facility] Comment on above: Performed By: #### 2 157-6 #### SRAVANI LOVE ([id number]) [facility] [address] [place] [address] 07472 CBC panel Auto (Bld)on 11-05 Erythrocyte distribution width (RBC) [Ratio] 15.4 % High 11.5-14.5 [facility] Comment on above: Performed By: #### 5 8410-2 #### SRAVANI LOVE ([id number]) [facility] [address] [place] [address] 88951 Hematocrit (Bld) [Volume fraction] 43.2 % Normal 36.0-46.0 [facility] Comment on above: Performed By: #### 5 8410-2 #### SRAVANI LOVE ([id number]) [facility] [address] [place] [address] 85766 Hemoglobin (Bld) [Mass/Vol] 13.6 g/dL Normal 12.0-16.0 [facility] Comment on above: Performed By: #### 5 8410-2 #### SRAVANI LOVE ([id number]) [facility] [address] [place] [address] 58865 MCH (RBC) [Entitic mass] 27.4 pg Normal 26.0-34.0 [facility] Comment on above: Performed By: #### 5 8410-2 #### SRAVANI LOVE ([id number]) [facility] [address] [place] [address] 33961 MCHC (RBC) [Mass/Vol] 31.5 g/dL Low 32.0-36.0 [facility] Comment on above: Performed By: #### 5 8410-2 #### SRAVANI LOVE ([id number]) [facility] [address] [place] [address] 58247 MCV (RBC) [Entitic vol] 87 fL Normal 80-100 [facility] Comment on above: Performed By: #### 5 8410-2 #### SRAVANI LOVE ([id number]) [facility] [address] [place] [address] 73259 Nucleated RBC/100 WBC (Bld) [Ratio] 0.0 /100 WBCs Normal 0.0-0.0 [facility] Comment on above: Performed By: #### 5 8410-2 #### SRAVANI LOVE ([id number]) [facility] [address] [place] [address] 94128 Platelets (Bld) [#/Vol] 302 x10*3/uL Normal 150-450 [facility] Comment on above: Performed By: #### 5 8410-2 #### SRAVANI LOVE ([id number]) [facility] [address] [place] [address] 76590 RBC (Bld) [#/Vol] 4.97 x10*6/uL Normal 4.00-5.20 [facility] Comment on above: Performed By: #### 5 8410-2 #### SRAVANI LOVE ([id number]) [facility] [address] [place] [address] 86818 WBC (Bld) [#/Vol] 8.2 x10*3/uL Normal 4.4-11.3 [facility] Comment on above: Performed By: #### 5 8410-2 #### SRAVANI LOVE ([id number]) [facility] [place] [address] Comprehensive metabolic 2000 panelon 11-06-2023 Albumin BCP dye [Mass/Vol] 3.5 g/dL Normal 3.4-5.0 [facility] Comment on above: Performed By: #### 2 4323-8 #### SRAVANI LOVE ([id number]) [facility] [address] [place] [address] 85154 ALP [Catalytic activity/Vol] 72 U/L Normal 33-110 [facility] Comment on above: Performed By: #### 2 4323-8 #### SRAVANI LOVE ([id number]) [facility] [address] [place] [address] 12697 ALT With P-5'-P [Catalytic activity/Vol] 131 U/L High 7-45 [facility] Comment on above: Result Comment: Glendy ents treated with Sulfasalazine may generate falsely decreased results for ALT. Performed By: #### 2 4323-8 #### SRAVANI LOVE ([id number]) [facility] [address] [place] [address] 16585 Anion gap [Moles/Vol] 10 mmol/L Normal 10-20 [facility] Comment on above: Performed By: #### 2 4323-8 #### SRAVANI LOVE ([id number]) [facility] [address] [place] [address] 56875 AST With P-5'-P [Catalytic activity/Vol] 87 U/L High 9-39 [facility] Comment on above: Performed By: #### 2 4323-8 #### SRAVANI LOVE ([id number]) [facility] [address] [place] [address] 23318 Bilirubin [Mass/Vol] 0.6 mg/dL Normal 0.0-1.2 [facility] Comment on above: Performed By: #### 2 4323-8 #### SRAVANI LOVE ([id number]) [facility] [address] [place] [address] 93248 Calcium [Mass/Vol] 10.7 mg/dL High 8.6-10.3 [facility] Comment on above: Performed By: #### 2 4323-8 #### SRAVANI LOVE ([id number]) [facility] [address] [place] [address] 75060 Chloride [Moles/Vol] 102 mmol/L Normal 98-107 [facility] Comment on above: Performed By: #### 2 4323-8 #### SRAVANI LOVE ([id number]) [facility] [address] [place] [address] 84115 CO2 [Moles/Vol] 30 mmol/L Normal 21-32 [facility] Comment on above: Performed By: #### 2 4323-8 #### SRAVANI LOVE ([id number]) [facility] [address] [place] [address] 87351 Creatinine [Mass/Vol] 0.60 mg/dL Normal 0.50-1.05 [facility] Comment on above: Performed By: #### 2 4323-8 #### SRAVANI LOVE ([id number]) [facility] [address] [place] [address] 26042 GFR/1.73 sq M.predicted MDRD (S/P/Bld) [Vol rate/Area] mL/min/{1.73_m2} Normal >60 [facility] Comment on above: Result Comment: Calc ulations of estimated GFR are performed using the 2020 CKD-EPI Study Refit equation without the race variable for the IDMS-Traceable creatinine methods. https://jasn.asnjournals.org/content/early/ASN.2020 300933 Performed By: #### 2 4323-8 #### SRAVANI LOVE ([id number]) [facility] [address] [place] [address] 29855 Glucose [Mass/Vol] 82 mg/dL Normal 74-99 [facility] Comment on above: Performed By: #### 2 4323-8 #### SRAVANI LOVE ([id number]) [facility] [address] [place] [address] 00924 Potassium [Moles/Vol] 4.9 mmol/L Normal 3.5-5.3 [facility] Comment on above: Performed By: #### 2 4323-8 #### SRAVANI LOVE ([id number]) [facility] [address] [place] [address] 94193 Protein [Mass/Vol] 7.1 g/dL Normal 6.4-8.2 [facility] Comment on above: Performed By: #### 2 4323-8 #### SRAVANI LOVE ([id number]) [facility] [address] [place] [address] 94728 Sodium [Moles/Vol] 137 mmol/L Normal 136-145 [facility] Comment on above: Performed By: #### 2 4323-8 #### SRAVANI LOVE ([id number]) [facility] [address] [place] [address] 24083 Urea nitrogen [Mass/Vol] 22 mg/dL Normal 6-23 [facility] Comment on above: Performed By: #### 2 4323-8 #### SRAVANI LOVE ([id number]) [facility] [address] [place] [address] 33379 Creatine kinaseon 11-06-2023 CK [Catalytic activity/Vol] 663 U/L High 0-215 [facility] Comment on above: Performed By: #### 2 157-6 #### SRAVANI LOVE ([id number]) [facility] [address] [place] [address] 77689 Troponin I.cardiac panelon 0 11-06-2023 Tropinin I.cardiac panel High sensitivity method 57 ng/L Critically high 0-13 [facility] Comment on above: Order Comment: Less than 99th percentile of normal range cutoff- Female and children under 18 years old <14 ng/L; Male <21 ng/L: Negative Repeat testing should be performed if clinically indicated. Female and children under 18 years old 14-50 ng/L; Male 21-50 ng/L: Consistent with possible cardiac damage and possible increased clinical risk. Serial measurements may help to assess extent of myocardial damage. >50 ng/L: Consistent with cardiac damage, increased clinical risk and myocardial infarction. Serial measurements may help assess extent of myocardial damage. NOTE: Children less than 1 year old may have higher baseline troponin levels and results should be interpreted in conjunction with the overall clinical context. NOTE: Troponin I testing is performed using a different testing methodology at [facility] than at other bay area hospital. Direct result comparisons should only be made within the same method. Performed By: #### 8 9577-1 #### LASSITER SHARRIMARCO ANTONIO ([id number]) [facility] [address] [place] [address] Basic metabolic 2000 panelon 10-29-2023 Anion gap [Moles/Vol] 9 mmol/L Low 10 - 2 0 mmol/L [facility] Calcium [Mass/Vol] 8.5 mg/dL Low 8.6 - 10. 3 mg/dL [facility] Chloride [Moles/Vol] 112 mmol/L High 98 - 10 7 mmol/L [facility] Comment on above: Confirmed by repeat analysis CO2 [Moles/Vol] 22 mmol/L 21 - 32 mmol/L [facility] Comment on above: Confirmed by repeat analysis Creatinine [Mass/Vol] 0.41 mg/dL Low 0.50 - 1.05 mg/dL [facility] eGFR - PINF [facility] Comment on above: Calculations of bella mated GFR are performed using the 2020 CKD-EPI Study Refit equation without the race variable for the IDMS-Traceable creatinine methods. https://jasn.asnjournals.org/content/early/ASN.2020 766669 Glucose [Mass/Vol] 73 mg/dL Low 74 - 99 mg/dL [facility] Potassium [Moles/Vol] 3.7 mmol/L 3.5 - 5.3 mmol/L [facility] Comment on above: Confirmed by repeat analysis Sodium [Moles/Vol] 139 mmol/L 136 - 145 mmol/L [facility] Comment on above: Confirmed by repeat analysis Urea nitrogen [Mass/Vol] 15 mg/dL 6 - 23 mg/dL [facility] Anion gap [Moles/Vol] 9 mmol/L Low 10-20 [facility] Comment on above: Performed By: #### 2 157-6 #### SRAVANI LOVE ([id number]) [facility] [address] [place] [address] Calcium [Mass/Vol] 8.5 mg/dL Low 8.6-10.3 [facility] Comment on above: Performed By: #### 2 157-6 #### SRAVANI LOVE ([id number]) [facility] [address] [place] [address] 95461 Chloride [Moles/Vol] 112 mmol/L High 98-107 [facility] Comment on above: Result Comment: Conf irmed by repeat analysis Performed By: #### 2 157-6 #### SRAVANI LOVE ([id number]) [facility] [address] [place] [address] CO2 [Moles/Vol] 22 mmol/L Normal 21-32 [facility] Comment on above: Result Comment: Conf irmed by repeat analysis Performed By: #### 2 157-6 #### SRAVANI LOVE ([id number]) [facility] [address] [place] [address] Creatinine [Mass/Vol] 0.41 mg/dL Low 0.50-1.05 [facility] Comment on above: Performed By: #### 2 157-6 #### SRAVANI LOVE ([id number]) [facility] [place] [address] GFR/1.73 sq M.predicted MDRD (S/P/Bld) [Vol rate/Area] mL/min/{1.73_m2} Normal >60 [facility] Comment on above: Result Comment: Calc ulations of estimated GFR are performed using the 2020 CKD-EPI Study Refit equation without the race variable for the IDMS-Traceable creatinine methods. https://jasn.asnjournals.org/content/early/ASN 755066 Performed By: #### 2 157-6 #### SRAVANI LOVE ([id number]) [facility] [address] [place] [address] 34192 Glucose [Mass/Vol] 73 mg/dL Low 74-99 [facility] Comment on above: Performed By: #### 2 157-6 #### SRAVANI LOVE ([id number]) [facility] [address] [place] [address] 61247 Potassium [Moles/Vol] 3.7 mmol/L Normal 3.5-5.3 [facility] Comment on above: Result Comment: Conf irmed by repeat analysis Performed By: #### 2 157-6 #### SRAVANI LOVE ([id number]) [facility] [address] [place] [address] 13252 Sodium [Moles/Vol] 139 mmol/L Normal 136-145 [facility] Comment on above: Result Comment: Conf irmed by repeat analysis Performed By: #### 2 157-6 #### SRAVANI LOVE ([id number]) [facility] [address] [place] [address] 49265 Urea nitrogen [Mass/Vol] 15 mg/dL Normal 6-23 [facility] Comment on above: Performed By: #### 2 157-6 #### SRAVANI LOVE ([id number]) [facility] [address] [place] [address] 37515 CBC panel Auto (Bld)on 10-28 Erythrocyte distribution width (RBC) [Ratio] 15.1 % High 11.5 - 14.5 % [facility] Hematocrit (Bld) [Volume fraction] 35.7 % Low 36.0 - 46.0 % [facility] Hemoglobin (Bld) [Mass/Vol] 11.2 g/dL Low 12.0 - 16.0 g/dL [facility] Interpretation and review of laboratory results Abnormal [facility] MCH (RBC) [Entitic mass] 27.1 pg 26.0 - 34.0 pg [facility] MCHC (RBC) [Mass/Vol] 31.4 g/dL Low 32.0 - 36.0 g/dL [facility] MCV (RBC) [Entitic vol] 86 fL 80 - 100 fL [facility] Nucleated RBC/100 WBC (Bld) [Ratio] 0.0 % [facility] Platelets (Bld) [#/Vol] 281 10*3/uL [facility] RBC (Bld) [#/Vol] 4.14 10*6/uL [facility] WBC (Bld) [#/Vol] 5.3 10*3/uL [facility] Erythrocyte distribution width (RBC) [Ratio] 15.1 % High 11.5-14.5 [facility] Comment on above: Performed By: #### 2 157-6 #### SRAVANI LOVE ([id number]) [facility] [address] [place] [address] 10813 Hematocrit (Bld) [Volume fraction] 35.7 % Low 36.0-46.0 [facility] Comment on above: Performed By: #### 2 157-6 #### SRAVANI LOVE ([id number]) [facility] [address] [place] [address] 96302 Hemoglobin (Bld) [Mass/Vol] 11.2 g/dL Low 12.0-16.0 [facility] Comment on above: Performed By: #### 2 157-6 #### SRAVANI LOVE ([id number]) [facility] [address] [place] [address] 12331 MCH (RBC) [Entitic mass] 27.1 pg Normal 26.0-34.0 [facility] Comment on above: Performed By: #### 2 157-6 #### SRAVANI LOVE ([id number]) [facility] [address] [place] [address] 99550 MCHC (RBC) [Mass/Vol] 31.4 g/dL Low 32.0-36.0 [facility] Comment on above: Performed By: #### 2 157-6 #### SRAVANI LOVE ([id number]) [facility] [address] [place] [address] 81969 MCV (RBC) [Entitic vol] 86 fL Normal 80-100 U [facility] Comment on above: Performed By: #### 2 157-6 #### SRAVANI LOVE ([id number]) [facility] [address] [place] [address] 71496 Nucleated RBC/100 WBC (Bld) [Ratio] 0.0 /100 WBCs Normal 0.0-0.0 [facility] Comment on above: Performed By: #### 2 157-6 #### SRAVANI LOVE ([id number]) [facility] [address] [place] [address] 65255 Platelets (Bld) [#/Vol] 281 x10*3/uL Normal 150-450 [facility] Comment on above: Performed By: #### 2 157-6 #### SRAVANI LOVE ([id number]) [facility] [address] [place] [address] 09833 RBC (Bld) [#/Vol] 4.14 x10*6/uL Normal 4.00-5.20 [facility] Comment on above: Performed By: #### 2 157-6 #### SRAVANI LOVE ([id number]) [facility] [address] [place] [address] 07908 WBC (Bld) [#/Vol] 5.3 x10*3/uL Normal 4.4-11.3 [facility] Comment on above: Performed By: #### 2 157-6 #### SRAVANI LOVE ([id number]) [facility] [address] [place] [address] 35463 Creatine Kinaseon 10-29-2023 CK [Catalytic activity/Vol] 1707 U/L High 0 - 215 U/L [facility] Creatine kinaseon 10-29-2023 CK [Catalytic activity/Vol] 1707 U/L High 0-215 [facility] Comment on above: Performed By: #### 2 157-6 #### LASSITER KATE ([id number]) [facility] [address] [place] [address] No Panel Informationon 10-28 Interpretation and review of laboratory results Abnormal [facility] Tropinin I.cardiac panel Hig h sensitivity methodon 10-29-2023 Interpretation and review of laboratory results Abnormal [facility] Less than 99th percentile of normal range cutoff- Female and children under 18 years old <14 ng/L; Male <21 ng/L: Negative Repeat testing should be performed if clinically indicated. Female and children under 18 years old 14-50 ng/L; Male 21-50 ng/L: Consistent with possible cardiac damage and possible increased clinical risk. Serial measurements may help to assess extent of myocardial damage. >50 ng/L: Consistent with cardiac damage, increased clinical risk and myocardial infarction. Serial measurements may help assess extent of myocardial damage. NOTE: Children less than 1 year old may have higher baseline troponin levels and results should be interpreted in conjunction with the overall clinical context. NOTE: Troponin I testing is performed using a different testing methodology at [facility] [place] [facility] than at other bay area hospital. Direct result comparisons should only be made within the same method. [facility] Troponin I, High Sensitivity on 10-29-2023 Tropinin I.cardiac panel High sensitivity method 68 ng/L Critically high 0 - 13 ng/L [facility] Comment on above: Previous result veri fied on 10/28/2023 1020 on specimen/case [id number] called with component [facility] for procedure Troponin I, High Sensitivity with value 92 ng/L. Troponin I.cardiac panelon 0 10-29-2023 Tropinin I.cardiac panel High sensitivity method 68 ng/L Critically high 0-13 [facility] Comment on above: Order Comment: Less than 99th percentile of normal range cutoff-Female and children under 18 years old <14 ng/L; Male <21 ng/L: NegativeRepeat testing should be performed if clinically indicated.Female and children under 18 years old 14-50 ng/L; Male 21-50 ng/L:Consistent with possible cardiac damage and possible increased clinicalrisk. Serial measurements may help to assess extent of myocardial damage.>50 ng/L: Consistent with cardiac damage, increased clinical risk andmyocardial infarction. Serial measurements may help assess extent ofmyocardial damage.NOTE: Children less than 1 year old may have higher baseline troponinlevels and results should be interpreted in conjunction with the overallclinical context.NOTE: Troponin I testing is performed using a differenttesting methodology at [facility] Direct result comparisons should onlybe made within the same method. Result Comment: Prev ious result verified on 10/28/2023 1020 on specimen/case [id number] called with component [facility] for procedure Troponin I, High Sensitivity with value 92 ng/L. Performed By: #### 2 157-6 #### LASSITER KATE ([id number]) [facility] [address] [place] [address] US Abdomen RUQon 10-29-2023 Cholelithiasis. Suspect fatty liver. MACRO: None Signed by: Jann Schumacher 10/29/2023 8:15 AM Dictation workstation: [id number] [facility] Interpreted By: Jann Schumacher, STUDY: US GALLBLADDER; 10/28/2023 6:30 pm INDICATION: Signs/Symptoms:elevated LFT. COMPARISON: 06/23/2023 ACCESSION NUMBER(S): [id number] ORDERING CLINICIAN: PASTORA RAMIREZ TECHNIQUE: Multiple images of the right upper quadrant were obtained. FINDINGS: LIVER: The liver measures 17.0 cm and is increased in echogenicity consistent with fatty change. No hepatic mass lesion. GALLBLADDER: The gallbladder is contracted and contains multiple gallstones. The gallbladder wall thickness is 3 mm. No pericholecystic edema. Sonographic Lynch's sign is negative. BILE DUCTS: No evidence of intra or extrahepatic biliary dilatation is identified; the common bile duct measures 3 mm. PANCREAS: The pancreas is poorly visualized due to overlying bowel gas. RIGHT KIDNEY: The right kidney measures 10.6 cm in length. The renal cortical echogenicity and thickness are within normal limit. No hydronephrosis or renal calculi are seen. [facility] Jann Schumacher MD - 10/29/2023 Interpreted By: Jann Schumacher, STUDY: US GALLBLADDER; 10/28/2023 6:30 pm INDICATION: Signs/Symptoms:elevated LFT. COMPARISON: 06/23/2023 ACCESSION NUMBER(S): [id number] ORDERING CLINICIAN: PASTORA RAMIREZ TECHNIQUE: Multiple images of the right upper quadrant were obtained. FINDINGS: LIVER: The liver measures 17.0 cm and is increased in echogenicity consistent with fatty change. No hepatic mass lesion. GALLBLADDER: The gallbladder is contracted and contains multiple gallstones. The gallbladder wall thickness is 3 mm. No pericholecystic edema. Sonographic Lynch's sign is negative. BILE DUCTS: No evidence of intra or extrahepatic biliary dilatation is identified; the common bile duct measures 3 mm. PANCREAS: The pancreas is poorly visualized due to overlying bowel gas. RIGHT KIDNEY: The right kidney measures 10.6 cm in length. The renal cortical echogenicity and thickness are within normal limit. No hydronephrosis or renal calculi are seen. IMPRESSION: Cholelithiasis. Suspect fatty liver. MACRO: None Signed by: Jann Schumacher 10/29/2023 8:15 AM Dictation workstation: [id number] [facility] Work Phone: US Abdomen RUQOrdered By: Jd Schumacher on 10-29-2023 [facility] Work Phone: Bacteria identifiedon 2023 Bacteria identified Cx Nom (U) Test: Urine Culture Specimen Source: Clean Catch/Voided Specimen Type: Urine Specimen Date: 10/28/2023923 Result Date: 10/30/2023756 Result Status: Final result Abnormal: No Resulting Lab: [facility] [address] [place] [address] CULTURE Normal genitourinary sandoval Normal [facility] Comment on above: Performed By: #### 2 157-6 #### LASSITER KATE ([id number]) [facility] [address] [place] [address] Bacteria identified Cx Nom ( U)Ordered By: Nila Gutiérrez on 10-28-2023 Interpretation and review of laboratory results Normal [facility] CBC panel Auto (Bld)on 10-27 Erythrocyte distribution width (RBC) [Ratio] 15.1 % High 11.5 - 14.5 % [facility] Hematocrit (Bld) [Volume fraction] 40.5 % 36.0 - 46.0 % [facility] Hemoglobin (Bld) [Mass/Vol] 12.9 g/dL 12.0 - 16.0 g/dL [facility] Interpretation and review of laboratory results Abnormal [facility] MCH (RBC) [Entitic mass] 27.6 pg 26.0 - 34.0 pg [facility] MCHC (RBC) [Mass/Vol] 31.9 g/dL Low 32.0 - 36.0 g/dL [facility] MCV (RBC) [Entitic vol] 87 fL 80 - 100 fL [facility] Nucleated RBC/100 WBC (Bld) [Ratio] 0.0 % [facility] Platelets (Bld) [#/Vol] 288 10*3/uL [facility] RBC (Bld) [#/Vol] 4.68 10*6/uL [facility] WBC (Bld) [#/Vol] 8.3 10*3/uL [facility] Erythrocyte distribution width (RBC) [Ratio] 15.1 % High 11.5-14.5 [facility] Comment on above: Performed By: #### 2 4323-8 #### SRAVANI LOVE ([id number]) [facility] [address] [place] [address] 47539 Hematocrit (Bld) [Volume fraction] 40.5 % Normal 36.0-46.0 [facility] Comment on above: Performed By: #### 2 4323-8 #### SRAVANI LOVE ([id number]) [facility] [address] [place] [address] 89329 Hemoglobin (Bld) [Mass/Vol] 12.9 g/dL Normal 12.0-16.0 [facility] Comment on above: Performed By: #### 2 4323-8 #### SRAVANI LOVE ([id number]) [facility] [address] [place] [address] 90933 MCH (RBC) [Entitic mass] 27.6 pg Normal 26.0-34.0 [facility] Comment on above: Performed By: #### 2 432-8 #### SRAVANI LOVE ([id number]) [facility] [address] [place] [address] 03639 MCHC (RBC) [Mass/Vol] 31.9 g/dL Low 32.0-36.0 [facility] Comment on above: Performed By: #### 2 432-8 #### SRAVANI LOVE ([id number]) [facility] [address] [place] [address] MCV (RBC) [Entitic vol] 87 fL Normal 80-100 U [facility] Comment on above: Performed By: #### 2 432-8 #### SRAVANI LOVE ([id number]) [facility] [address] [place] [address] 75010 Nucleated RBC/100 WBC (Bld) [Ratio] 0.0 /100 WBCs Normal 0.0-0.0 [facility] Comment on above: Performed By: #### 2 4323-8 #### SRAVANI LOVE ([id number]) [facility] [address] [place] [address] 67142 Platelets (Bld) [#/Vol] 288 x10*3/uL Normal 150-450 [facility] Comment on above: Performed By: #### 2 4323-8 #### SRAVANI LOVE ([id number]) [facility] [address] [place] [address] 81692 RBC (Bld) [#/Vol] 4.68 x10*6/uL Normal 4.00-5.20 [facility] Comment on above: Performed By: #### 2 432-8 #### SRAVANI LOVE ([id number]) [facility] [address] [place] [address] WBC (Bld) [#/Vol] 8.3 x10*3/uL Normal 4.4-11.3 [facility] Comment on above: Performed By: #### 2 4323-8 #### LASSITER KATE ([id number]) [facility] [address] [place] [id number] CK [Catalytic activity/Vol]o n 10-28-2023 Interpretation and review of laboratory results Abnormal [facility] Comprehensive metabolic 2000 panelon 10-28-2023 Albumin BCP dye [Mass/Vol] 2.8 g/dL Low 3.4 - 5.0 g/dL [facility] ALP [Catalytic activity/Vol] 62 U/L 33 - 110 U/L [facility] ALT With P-5'-P [Catalytic activity/Vol] 275 U/L High 7 - 45 U/L [facility] Comment on above: Patients treated wit h Sulfasalazine may generate falsely decreased results for ALT. Anion gap [Moles/Vol] 9 mmol/L Low 10 - 2 0 mmol/L [facility] AST With P-5'-P [Catalytic activity/Vol] 282 U/L High 9 - 39 U/L [facility] Bilirubin [Mass/Vol] 0.4 mg/dL 0.0 - 1 .2 mg/dL [facility] Calcium [Mass/Vol] 8.6 mg/dL 8.6 - 10. 3 mg/dL [facility] Chloride [Moles/Vol] 108 mmol/L High 98 - 10 7 mmol/L [facility] CO2 [Moles/Vol] 21 mmol/L 21 - 32 mmol/L [facility] Creatinine [Mass/Vol] 0.47 mg/dL Low 0.50 - 1.05 mg/dL [facility] eGFR - PINF [facility] Comment on above: Calculations of bella mated GFR are performed using the 2020 CKD-EPI Study Refit equation without the race variable for the IDMS-Traceable creatinine methods. https://jasn.asnjournals.org/content/early/ASN.2021 359979 Glucose [Mass/Vol] 103 mg/dL High 74 - 99 mg/dL [facility] Interpretation and review of laboratory results Abnormal [facility] Potassium [Moles/Vol] 3.8 mmol/L 3.5 - 5.3 mmol/L [facility] Protein [Mass/Vol] 5.5 g/dL Low 6.4 - 8.2 g/dL [facility] Sodium [Moles/Vol] 134 mmol/L Low 136 - 145 mmol/L [facility] Urea nitrogen [Mass/Vol] 19 mg/dL 6 - 23 mg/dL [facility] Albumin BCP dye [Mass/Vol] 2.8 g/dL Low 3.4-5.0 [facility] Comment on above: Performed By: #### 2 157-6 #### SRAVANI LOVE ([id number]) [facility] [place] [address] ALP [Catalytic activity/Vol] 62 U/L Normal 33-110 [facility] Comment on above: Performed By: #### 2 157-6 #### SRAVANI LOVE ([id number]) [facility] [place] [address] ALT With P-5'-P [Catalytic activity/Vol] 275 U/L High 7-45 [facility] Comment on above: Result Comment: Glendy ents treated with Sulfasalazine may generate falsely decreased results for ALT. Performed By: #### 2 157-6 #### SRAVANI LOVE ([id number]) [facility] [place] [address] Anion gap [Moles/Vol] 9 mmol/L Low 10-20 [facility] Comment on above: Performed By: #### 2 157-6 #### SRAVANI LOVE ([id number]) [facility] [place] [address] AST With P-5'-P [Catalytic activity/Vol] 282 U/L High 9-39 [facility] Comment on above: Performed By: #### 2 157-6 #### SRAVANI LOVE ([id number]) [facility] [address] [place] [address] Bilirubin [Mass/Vol] 0.4 mg/dL Normal 0.0-1.2 [facility] Comment on above: Performed By: #### 2 157-6 #### SRAVANI LOVE ([id number]) [facility] [address] [place] [address] Calcium [Mass/Vol] 8.6 mg/dL Normal 8.6-10.3 [facility] Comment on above: Performed By: #### 2 157-6 #### SRAVANI LOVE ([id number]) [facility] [address] [place] [address] 10093 Chloride [Moles/Vol] 108 mmol/L High 98-107 [facility] Comment on above: Performed By: #### 2 157-6 #### SRAVANI LOVE ([id number]) [facility] [place] [address] CO2 [Moles/Vol] 21 mmol/L Normal 21-32 [facility] Comment on above: Performed By: #### 2 157-6 #### SRAVANI LOVE ([id number]) [facility] [place] [address] Creatinine [Mass/Vol] 0.47 mg/dL Low 0.50-1.05 [facility] Comment on above: Performed By: #### 2 157-6 #### SRAVANI LOVE ([id number]) [facility] [address] [place] [address] 52209 GFR/1.73 sq M.predicted MDRD (S/P/Bld) [Vol rate/Area] mL/min/{1.73_m2} Normal >60 [facility] Comment on above: Result Comment: Calc ulations of estimated GFR are performed using the 2020 CKD-EPI Study Refit equation without the race variable for the IDMS-Traceable creatinine methods. https://michellesn.asnjournals.org/content/early//ASN.2020 035969 Performed By: #### 2 157-6 #### SRAVANI LOVE ([id number]) [facility] [address] [place] [address] 00692 Glucose [Mass/Vol] 103 mg/dL High 74-99 [facility] Comment on above: Performed By: #### 2 157-6 #### SRAVANI LOVE ([id number]) [facility] [address] [place] [address] 55103 Potassium [Moles/Vol] 3.8 mmol/L Normal 3.5-5.3 [facility] Comment on above: Performed By: #### 2 157-6 #### SRAVANI LOVE ([id number]) [facility] [address] [place] [address] 79902 Protein [Mass/Vol] 5.5 g/dL Low 6.4-8.2 [facility] Comment on above: Performed By: #### 2 157-6 #### SRAVANI LOVE ([id number]) [facility] [address] [place] [address] 35415 Sodium [Moles/Vol] 134 mmol/L Low 136-145 [facility] Comment on above: Performed By: #### 2 157-6 #### SRAVANI LOVE ([id number]) [facility] [address] [place] [address] 53210 Urea nitrogen [Mass/Vol] 19 mg/dL Normal 6-23 [facility] Comment on above: Performed By: #### 2 157-6 #### SRAVANI LOVE ([id number]) [facility] [address] [place] [address] 82138 Creatine Kinaseon 10-28-2023 CK [Catalytic activity/Vol] 4847 U/L High 0 - 215 U/L [facility] Creatine kinaseon 10-28-2023 CK [Catalytic activity/Vol] 4847 U/L High 0-215 [facility] Comment on above: Performed By: #### 2 157-6 #### LASSITER KATE ([id number]) [facility] [address] [place] [address] Extra Urine Henley Tubeon 10-11 Extra Tube Hold for add-ons. [facility] Comment on above: Auto resulted. [facility] No Panel Informationon 10-27 [facility] Tropinin I.cardiac panel Hig h sensitivity methodon 10-28-2023 Interpretation and review of laboratory results Abnormal [facility] Less than 99th percentile of normal range cutoff- Female and children under 18 years old <14 ng/L; Male <21 ng/L: Negative Repeat testing should be performed if clinically indicated. Female and children under 18 years old 14-50 ng/L; Male 21-50 ng/L: Consistent with possible cardiac damage and possible increased clinical risk. Serial measurements may help to assess extent of myocardial damage. >50 ng/L: Consistent with cardiac damage, increased clinical risk and myocardial infarction. Serial measurements may help assess extent of myocardial damage. NOTE: Children less than 1 year old may have higher baseline troponin levels and results should be interpreted in conjunction with the overall clinical context. NOTE: Troponin I testing is performed using a different testing methodology at [facility] [place] [facility] than at other [facility]. Direct result comparisons should only be made within the same method. [facility] Troponin I, High Sensitivity on 10-28-2023 Tropinin I.cardiac panel High sensitivity method 92 ng/L Critically high 0 - 13 ng/L [facility] Troponin I.cardiac panelon 0 10-28-2023 Tropinin I.cardiac panel High sensitivity method 92 ng/L Critically high 0-13 [facility] Comment on above: Order Comment: Less than 99th percentile of normal range cutoff-Female and children under 18 years old <14 ng/L; Male <21 ng/L: NegativeRepeat testing should be performed if clinically indicated.Female and children under 18 years old 14-50 ng/L; Male 21-50 ng/L:Consistent with possible cardiac damage and possible increased clinicalrisk. Serial measurements may help to assess extent of myocardial damage.>50 ng/L: Consistent with cardiac damage, increased clinical risk andmyocardial infarction. Serial measurements may help assess extent ofmyocardial damage.NOTE: Children less than 1 year old may have higher baseline troponinlevels and results should be interpreted in conjunction with the overallclinical context.NOTE: Troponin I testing is performed using a differenttesting methodology at [facility] [place] than at [facility]. Direct result comparisons should onlybe made within the same method. Performed By: #### 2 157-6 #### LASSITER KATE ([id number]) [facility] [address] [place] [phone] US Abdomen RUQon 10-28-2023 Radiology Study observation (narrative) [facility] Work Phone: US GALLBLADDERon 10-28-2023 US GALLBLADDER Interpreted By: Jann Schumacher, STUDY: US GALLBLADDER; 10/28/2023 6:30 pm INDICATION: Signs/Symptoms:elevated LFT. COMPARISON: 06/23/2023 ACCESSION NUMBER(S): [id number] ORDERING CLINICIAN: PASTORA RAMIREZ TECHNIQUE: Multiple images of the right upper quadrant were obtained. FINDINGS: LIVER: The liver measures 17.0 cm and is increased in echogenicity consistent with fatty change. No hepatic mass lesion. GALLBLADDER: The gallbladder is contracted and contains multiple gallstones. The gallbladder wall thickness is 3 mm. No pericholecystic edema. Sonographic Lynch's sign is negative. BILE DUCTS: No evidence of intra or extrahepatic biliary dilatation is identified; the common bile duct measures 3 mm. PANCREAS: The pancreas is poorly visualized due to overlying bowel gas. RIGHT KIDNEY: The right kidney measures 10.6 cm in length. The renal cortical echogenicity and thickness are within normal limit. No hydronephrosis or renal calculi are seen. IMPRESSION: Cholelithiasis. Suspect fatty liver. MACRO: None Signed by: Jann Schumacher 10/29/2023 8:15 AM Dictation workstation: [id number] Normal [facility] Urinalysis complete W Reflex Culture panel (U)on 10-28-2023 Appearance (U) Clear Clear [facility] Bilirubin (U) [Mass/Vol] Negative NEGATIVE [facility] Color (U) Light-Yellow Light-Yellow , Yellow, Dark-Yellow [facility] Glucose Auto test strip (U) [Mass/Vol] Normal Normal mg/dL [facility] Interpretation and review of laboratory results Abnormal [facility] Ketones (U) [Mass/Vol] Negative NEGAT KARYN mg/dL [facility] Leukocyte esterase Auto test strip Ql (U) 25 Annette/ L Abnormal NEGATIVE [facility] Nitrite Auto test strip Ql (U) Negative NEGATIVE [facility] pH (U) 6.0 [pH] 5.0, 5.5, 6.0, 6.5, 7.0, 7.5, 8.0 [facility] Protein (U) [Mass/Vol] Negative NEGAT KARYN, 10 (TRACE), 20 (TRACE) mg/dL [facility] RBC (U) [#/Vol] Negative NEGATIVE [facility] Specific gravity (U) [Rel density] 1.016 1.005 - 1.035 [facility] Urobilinogen (U) [Mass/Vol] Normal Normal mg/dL [facility] Appearance (U) Clear Normal Clear [facility] Comment on above: Performed By: #### 2 4323-8 #### SRAVANI LOVE ([id number]) [facility] [address] [place] [address] 65889 Bilirubin (U) [Mass/Vol] Negative Normal NEGATIVE [facility] Comment on above: Performed By: #### 2 4323-8 #### SRAVANI LOVE ([id number]) [facility] [address] [place] [address] 81038 Color (U) Light-Yellow Normal Light-Yellow , Yellow, Dark-Yellow [facility] Comment on above: Performed By: #### 2 4323-8 #### SRAVANI LOVE ([id number]) [facility] [address] [place] [address] 53902 Glucose Auto test strip (U) [Mass/Vol] Normal Normal Normal [facility] Comment on above: Performed By: #### 2 4323-8 #### SRAVANI LOVE ([id number]) [facility] [address] [place] [address] 47348 Ketones (U) [Mass/Vol] Negative Normal NEGATIVE Un [facility] Comment on above: Performed By: #### 2 4323-8 #### SRAVANI LOVE ([id number]) [facility] [address] [place] [address] 03841 Leukocyte esterase Auto test strip Ql (U) 25 Annette/???L Abnormal NEGATIVE [facility] Comment on above: Performed By: #### 2 4323-8 #### SRAVANI LOVE ([id number]) [facility] [address] [place] [address] 25628 Nitrite Auto test strip Ql (U) Negative Normal NEGATIVE [facility] Comment on above: Performed By: #### 2 4323-8 #### SRAVANI LOVE ([id number]) [facility] [address] [place] [address] 08270 pH (U) 6.0 [pH] Normal 5.0, 5.5, 6.0, 6.5, 7.0, 7.5, 8.0 [facility] Comment on above: Performed By: #### 2 4323-8 #### SRAVANI LOVE ([id number]) [facility] [address] [place] [address] 90385 Protein (U) [Mass/Vol] Negative Normal NEGAT KARYN, 10 (TRACE), 20 (TRACE) [facility] Comment on above: Performed By: #### 2 4323-8 #### SRAVANI LOVE ([id number]) [facility] [address] [place] [address] 19251 RBC (U) [#/Vol] Negative Normal NEGATIVE [facility] Comment on above: Performed By: #### 2 4323-8 #### SRAVANI LOVE ([id number]) [facility] [address] [place] [address] 75711 Specific gravity (U) [Rel density] 1.016 Normal 1.005-1.035 [facility] Comment on above: Performed By: #### 2 4323-8 #### SRAVANI LOVE ([id number]) [facility] [address] [place] [address] Urobilinogen (U) [Mass/Vol] Normal Normal Normal [facility] Comment on above: Performed By: #### 2 432-8 #### SRAVANI LOVE ([id number]) [facility] [address] [place] [address] Urinalysis microscopic panel Auto Ql (U)on 10-28-2023 Epithelial cells.squamous Auto (Urine sed) [#/Area] 1-9 (SPARSE) Reference range not established. /HPF [facility] Mucus Auto (Urine sed) [#/Area] FEW Reference range not established. /LPF [facility] RBC Auto (Urine sed) [#/Area] 1-2 NONE, 1-2, 3-5 /HPF [facility] WBC Auto (Urine sed) [#/Area] 1-5 1-5, NONE /HPF [facility] Epithelial cells.squamous Auto (Urine sed) [#/Area] 1-9 (SPARSE) Normal Reference range not established. [facility] Comment on above: Performed By: #### 2 4322-8 #### SRAVANI LOVE ([id number]) [facility] [address] [place] [address] Mucus Auto (Urine sed) [#/Area] FEW Normal Reference range not established. [facility] Comment on above: Performed By: #### 2 3-8 #### SRAVANI LOVE ([id number]) [facility] [place] [address] RBC Auto (Urine sed) [#/Area] 1-2 Normal NONE, 1-2, 3-5 [facility] Comment on above: Performed By: #### 2 4322-8 #### SRAVANI LOVE ([id number]) [facility] [address] [place] [phone] WBC Auto (Urine sed) [#/Area] 1-5 Normal 1-5, NONE [facility] Comment on above: Performed By: #### 2 4323-8 #### SRAVANI LOVE ([id number]) [facility] [address] [place] [address] Urine CultureOrdered By: Sergio Gutiérrez on 10-28-2023 Bacteria identified Cx Nom (U) No significant growth [facility] Bacteria identifiedon 2023 Bacteria identified Cx Nom (U) Test: Urine Culture Specimen Source: Clean Catch/Voided Specimen Type: Urine Specimen Date: 10/27/2023 0540 Result Date: 10/28/2023 0753 Result Status: Final result Abnormal: No Resulting Lab: [facility] [address] [place] [address] CULTURE No significant growth [facility] Comment on above: Performed By: #### 2 4323-8 #### SRAVANI LOVE ([id number]) [facility] [address] [place] [address] Bacteria identified Cx Nom (Bld) Test: Blood Culture Specimen Source: Peripheral Venipuncture Specimen Type: Blood culture Specimen Date: 10/27/2023 045 Result Date: 10/31/2023 1900 Result Status: Final result Abnormal: No Resulting Lab: [facility] [address] [place] [address] CULTURE No growth at 4 days - FINAL REPORT Normal [facility] Comment on above: Performed By: #### 2 4323-8 #### SRAVANI LOVE ([id number]) [facility] [address] [place] [address] C-reactive proteinon 024 CRP [Mass/Vol] 3.11 mg/dL High NINF - 1.00 mg/dL [facility] CBC W Auto Differential pane l (Bld)on 10-27-2023 Basophils (Bld) [#/Vol] 0.04 10*3/uL [facility] Basophils/100 WBC (Bld) 0.3 % 0.0 - 2.0 % [facility] Eosinophils (Bld) [#/Vol] 0.80 10*3/uL High [facility] Eosinophils/100 WBC (Bld) 5.4 % 0.0 - 6.0 % [facility] Erythrocyte distribution width (RBC) [Ratio] 15.1 % High 11.5 - 14.5 % [facility] Hematocrit (Bld) [Volume fraction] 46.7 % High 36.0 - 46.0 % [facility] Hemoglobin (Bld) [Mass/Vol] 15.0 g/dL 12.0 - 16.0 g/dL [facility] Immature granulocytes (Bld) [#/Vol] 0.28 10*3/uL [facility] Immature granulocytes/100 WBC (Bld) 1.9 % High 0.0 - 0.9 % [facility] Comment on above: Immature Granulocyte Count (IG) includes promyelocytes, myelocytes and metamyelocytes but does not include bands. Percent differential counts (%) should be interpreted in the context of the absolute cell counts (cells/UL). Interpretation and review of laboratory results Abnormal [facility] Lymphocytes (Bld) [#/Vol] 0.69 10*3/uL Low [facility] Lymphocytes/100 WBC (Bld) 4.7 % 13.0 - 44.0 % [facility] MCH (RBC) [Entitic mass] 27.5 pg 26.0 - 34.0 pg [facility] MCHC (RBC) [Mass/Vol] 32.1 g/dL 32.0 - 36.0 g/dL [facility] MCV (RBC) [Entitic vol] 86 fL 80 - 100 fL [facility] Monocytes (Bld) [#/Vol] 0.34 10*3/uL [facility] Monocytes/100 WBC (Bld) 2.3 % 2.0 - 10.0 % [facility] Neutrophils (Bld) [#/Vol] 12.59 10*3/uL High [facility] Comment on above: Percent differential counts (%) should be interpreted in the context of the absolute cell counts (cells/uL). Neutrophils/100 WBC (Bld) 85.4 % 40.0 - 80.0 % [facility] Nucleated RBC/100 WBC (Bld) [Ratio] 0.0 % [facility] Platelets (Bld) [#/Vol] 378 10*3/uL [facility] RBC (Bld) [#/Vol] 5.46 10*6/uL High [facility] WBC (Bld) [#/Vol] 14.7 10*3/uL High [facility] Basophils (Bld) [#/Vol] 0.04 x10*3/uL Normal 0.00-0.10 [facility] Comment on above: Performed By: #### 5 7021-8 ####SRAVANI LOVE ([id number])[facility])[address] [place] [address] 88402 Basophils/100 WBC (Bld) 0.3 % Normal 0.0-2.0 U [facility] Comment on above: Performed By: #### 5 7021-8 ####SRAVANI LOVE ([id number])[facility])[address] [place] [address] 33183 Eosinophils (Bld) [#/Vol] 0.80 x10*3/uL High 0.00-0.70 [facility] Comment on above: Performed By: #### 5 7021-8 ####SRAVANI LOVE ([id number])[facility])[address] [place] [address] 05052 Eosinophils/100 WBC (Bld) 5.4 % Normal 0.0-6.0 [facility] Comment on above: Performed By: #### 5 7021-8 ####SRAVANI LOVE ([id number])[facility])[address] [place] [address] 47706 Erythrocyte distribution width (RBC) [Ratio] 15.1 % High 11.5-14.5 [facility] Comment on above: Performed By: #### 5 7021-8 ####SRAVANI LOVE ([id number])[facility])[address] [place] [address] 51115 Hematocrit (Bld) [Volume fraction] 46.7 % High 36.0-46.0 [facility] Comment on above: Performed By: #### 5 7021-8 ####SRAVANI LOVE ([id number])[facility])[address] [place] [address] 18611 Hemoglobin (Bld) [Mass/Vol] 15.0 g/dL Normal 12.0-16.0 [facility] Comment on above: Performed By: #### 5 7021-8 ####SRAVANI LOVE ([id number])[facility])[address] [place] [address] 68805 Immature granulocytes (Bld) [#/Vol] 0.28 x10*3/uL Normal 0.00-0.70 [facility] Comment on above: Performed By: #### 5 7021-8 ####SRAVANI LOVE ([id number])[facility])[address] [place] [address] 59174 Immature granulocytes/100 WBC (Bld) 1.9 % High 0.0-0.9 [facility] Comment on above: Result Comment: Donna ture Granulocyte Count (IG) includes promyelocytes, myelocytes and metamyelocytes but does not include bands. Percent differential counts (%) should be interpreted in the context of the absolute cell counts (cells/UL). Performed By: #### 5 7021-8 ####SRAVANI LOVE ([id number])[facility])[address] [place] [address] 06793 Lymphocytes (Bld) [#/Vol] 0.69 x10*3/uL Low 1.20-4.80 [facility] Comment on above: Performed By: #### 5 7021-8 ####SRAVANI LOVE ([id number])[facility])[address] [place] [address] 22299 Lymphocytes/100 WBC (Bld) 4.7 % Normal 13.0-44.0 [facility] Comment on above: Performed By: #### 5 7021-8 ####SRAVANI LOVE ([id number])[facility] [place] [address] 42943 MCH (RBC) [Entitic mass] 27.5 pg Normal 26.0-34.0 [facility] Comment on above: Performed By: #### 5 7021-8 ####SRAVANI LOVE ([id number])[facility])[address] [place] [address] 43038 MCHC (RBC) [Mass/Vol] 32.1 g/dL Normal 32.0-36.0 [facility] Comment on above: Performed By: #### 5 7021-8 ####SRAVANI LOVE ([id number])[facility] [place] [address] 97211 MCV (RBC) [Entitic vol] 86 fL Normal 80-100 U [facility] Comment on above: Performed By: #### 5 7021-8 ####SRAVANI LOVE ([id number])[facility] [place] [address] 90474 Monocytes (Bld) [#/Vol] 0.34 x10*3/uL Normal 0.10-1.00 [facility] Comment on above: Performed By: #### 5 7021-8 ####SRAVANI LOVE ([id number])[facility] [place] [address] 18381 Monocytes/100 WBC (Bld) 2.3 % Normal 2.0-10.0 [facility] Comment on above: Performed By: #### 5 7021-8 ####SRAVANI LOVE ([id number])[facility] [place] [address] 91746 Neutrophils (Bld) [#/Vol] 12.59 x10*3/uL High 1.20-7.70 [facility] Comment on above: Result Comment: Perc ent differential counts (%) should be interpreted in the context of the absolute cell counts (cells/uL). Performed By: #### 5 7021-8 ####SRAVANI LOVE ([id number])[facility])[address] [place] [address] 02945 Neutrophils/100 WBC (Bld) 85.4 % Normal 40.0-80.0 [facility] Comment on above: Performed By: #### 5 7021-8 ####SRAVANI LOVE ([id number])[facility])[address] [place] [address] 27033 Nucleated RBC/100 WBC (Bld) [Ratio] 0.0 /100 WBCs Normal 0.0-0.0 [facility] Comment on above: Performed By: #### 5 7021-8 ####SRAVANI LOVE ([id number])[facility] [place] [address] 95560 Platelets (Bld) [#/Vol] 378 x10*3/uL Normal 150-450 [facility] Comment on above: Performed By: #### 5 7021-8 ####SRAVANI LOVE ([id number])[facility] [place] [address] 89655 RBC (Bld) [#/Vol] 5.46 x10*6/uL High 4.00-5.20 [facility] Comment on above: Performed By: #### 5 7021-8 ####SRAVANI LOVE ([id number])[facility] [place] [address] 71272 WBC (Bld) [#/Vol] 14.7 x10*3/uL High 4.4-11.3 [facility] Comment on above: Performed By: #### 5 7021-8 ####SRAVANI LOVE ([id number])[facility] [place] [address] 70285 CRP [Mass/Vol]on 10-27-2023 Interpretation and review of laboratory results Abnormal [facility] Calcium, ionizedOrdered By: Quiana Quintana on 10-27-2023 Calcium.ionized (Bld) [Moles/Vol] 1.18 mmol/L 1.1 - 1.33 mmol/L [facility] Comment on above: The performance tim acteristics of ionized calcium tested in heparinized plasma or serum have been validated by the individual laboratory site where testing is performed. Testing on heparinized plasma or serum is not approved by the FDA; however, such approval is not necessary. Calcium.ionizedon 10-27-2023 Calcium.ionized (Bld) [Moles/Vol] 1.18 mmol/L Normal 1.1-1.33 [facility] Comment on above: Result Comment: The performance characteristics of ionized calcium tested in heparinized plasma or serum have been validated by the individual laboratory site where testing is performed. Testing on heparinized plasma or serum is not approved by the FDA; however, such approval is not necessary. Performed By: #### 2 4323-8 #### LASSITER KATE ([id number]) [facility] [address] [place] [address] Calcium.ionized (Bld) [Moles /Vol]Ordered By: Quiana Quintana on 10-27-2023 Interpretation and review of laboratory results Normal [facility] Comprehensive metabolic 2000 panelon 10-27-2023 Albumin BCP dye [Mass/Vol] 2.8 g/dL Low 3.4 - 5.0 g/dL [facility] ALP [Catalytic activity/Vol] 65 U/L 33 - 110 U/L [facility] ALT With P-5'-P [Catalytic activity/Vol] 129 U/L High 7 - 45 U/L [facility] Comment on above: Patients treated wit h Sulfasalazine may generate falsely decreased results for ALT. Anion gap [Moles/Vol] 12 mmol/L 10 - 2 0 mmol/L [facility] AST With P-5'-P [Catalytic activity/Vol] 248 U/L High 9 - 39 U/L [facility] Bilirubin [Mass/Vol] 0.7 mg/dL 0.0 - 1 .2 mg/dL [facility] Calcium [Mass/Vol]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 damage.NOTE: Children less than 1 year old may have higher baseline troponinlevels and results should be interpreted in conjunction with the overallclinical context.NOTE: Troponin I testing is performed using a differenttesting methodology at [facility] [place] than [facility]. Direct result comparisons should onlybe made within the same method. Result Comment: Prev ious result verified on 10/27/2023 0557 on specimen/case [id number] called with component [facility] for procedure Troponin I, High Sensitivity with value 65 ng/L. Performed By: #### 2 4323-8 #### LASSITER KATE ([id number]) [facility] [address] [place] [address] Tropinin I.cardiac panel High sensitivity method 65 ng/L Critically high 0-13 [facility] Comment on above: Order Comment: Less than 99th percentile of normal range cutoff-Female and children under 18 years old <14 ng/L; Male <21 ng/L: NegativeRepeat testing should be performed if clinically indicated.Female and children under 18 years old 14-50 ng/L; Male 21-50 ng/L:Consistent with possible cardiac damage and possible increased clinicalrisk. Serial measurements may help to assess extent of myocardial damage.>50 ng/L: Consistent with cardiac damage, increased clinical risk andmyocardial infarction. Serial measurements may help assess extent ofmyocardial damage.NOTE: Children less than 1 year old may have higher baseline troponinlevels and results should be interpreted in conjunction with the overallclinical context.NOTE: Troponin I testing is performed using a differenttesting methodology at [facility] [place] than at [facility]. Direct result comparisons should onlybe made within the same method. Performed By: #### 8 9577-1 ####SRAVANI LOVE ([id number])[facility])[address] [place] [address] Urinalysis complete W Reflex Culture panel (U)on 10-27-2023 Appearance (U) Turbid Abnormal Clear [facility] Bilirubin (U) [Mass/Vol] Negative NEGATIVE [facility] Color (U) Yellow Light-Yellow , Yellow, Dark-Yellow [facility] Glucose Auto test strip (U) [Mass/Vol] Normal Normal mg/dL [facility] Ketones (U) [Mass/Vol] Negative NEGAT KARYN mg/dL [facility] Leukocyte esterase Auto test strip Ql (U) 75 Annette/ L Abnormal NEGATIVE [facility] Nitrite Auto test strip Ql (U) Negative NEGATIVE [facility] pH (U) 6.0 [pH] 5.0, 5.5, 6.0, 6.5, 7.0, 7.5, 8.0 [facility] Protein (U) [Mass/Vol] 100 (2+) Abnormal NEGAT KARYN, 10 (TRACE), 20 (TRACE) mg/dL [facility] RBC (U) [#/Vol] 1.0 (3+) Abnormal NEGATIVE [facility] Specific gravity (U) [Rel density] 1.044 Abnormal 1.005 - 1.035 [facility] Urobilinogen (U) [Mass/Vol] Normal Normal mg/dL [facility] Appearance (U) Turbid Normal Clear [facility] Comment on above: Performed By: #### 5 8077-9 ####SRAVANI LOVE ([id number])[facility])[address] [place] [address] Bilirubin (U) [Mass/Vol] Negative Normal NEGATIVE [facility] Comment on above: Performed By: #### 5 8077-9 ####SRAVANI LOVE ([id number])[facility])[address] [place] [address]655 Color (U) Yellow Normal Light-Yellow , Yellow, Dark-Yellow [facility] Comment on above: Performed By: #### 5 8077-9 ####SRAVANI LOVE ([id number])[facility])[address] [place] [address] 33898 Glucose Auto test strip (U) [Mass/Vol] Normal Normal Normal [facility] Comment on above: Performed By: #### 5 8077-9 ####SRAVANI LOVE ([id number])[facility])[address] [place] [address] 46025 Ketones (U) [Mass/Vol] Negative Normal NEGATIVE [facility] on above: Performed By: #### 5 8077-9 ####SRAVANI LOVE ([id number])[facility])[address] [place] [address] 13181 Leukocyte esterase Auto test strip Ql (U) 75 Annette/???L Abnormal NEGATIVE [facility] Comment on above: Performed By: #### 5 8077-9 ####SRAVANI LOVE ([id number])[facility])[address] [place] [address] 25456 Nitrite Auto test strip Ql (U) Negative Normal NEGATIVE [facility] Comment on above: Performed By: #### 5 8077-9 ####SRAVANI LOVE ([id number])[facility])[address] [place] [address] 35720 pH (U) 6.0 [pH] Normal 5.0, 5.5, 6.0, 6.5, 7.0, 7.5, 8.0 [facility] Comment on above: Performed By: #### 5 8077-9 ####SRAVANI LOVE ([id number])[facility])[address] [place] [address] Protein (U) [Mass/Vol] 100 (2+) Abnormal NEGAT KARYN, 10 (TRACE), 20 (TRACE) [facility] Comment on above: Performed By: #### 5 8077-9 ####SRAVANI LOVE ([id number])[facility])[address] [place] [address] RBC (U) [#/Vol] 1.0 (3+) Abnormal NEGATIVE [facility] Comment on above: Performed By: #### 5 8077-9 ####SRAVANI LOVE ([id number])[facility] [place] [address] Specific gravity (U) [Rel density] 1.044 Normal 1.005-1.035 [facility] Comment on above: Performed By: #### 5 8077-9 ####SRAVANI LOVE ([id number])[facility])[address] [place] [address] Urobilinogen (U) [Mass/Vol] Normal Normal Normal [facility] Comment on above: Performed By: #### 5 8077-9 ####SRAVANI LOVE ([id number])[facility])[address] [place] [address] Urinalysis microscopic panel Auto Ql (U)on 10-27-2023 Crystals.amorphous Computer assisted (U) [#/Area] 1+ NONE, 1+, 2+ /HPF [facility] Epithelial cells.squamous Auto (Urine sed) [#/Area] 1-9 (SPARSE) Reference range not established. /HPF [facility] Hyaline casts Auto (Urine sed) [#/Area] OCCASIONAL Abnormal NONE /LPF [facility] Mucus Auto (Urine sed) [#/Area] 4+ Reference range not established. /LPF [facility] RBC Auto (Urine sed) [#/Area] 6-10 Abnormal NONE, 1-2, 3-5 /HPF [facility] WBC Auto (Urine sed) [#/Area] 1-5 1-5, NONE /HPF [facility] Crystals.amorphous Computer assisted (U) [#/Area] 1+ /HPF Normal NONE, 1+, 2+ [facility] Comment on above: Performed By: #### 5 3315-8 ####SRAVANI LOVE ([id number])[facility])[address] [place] [address] 45379 Epithelial cells.squamous Auto (Urine sed) [#/Area] 1-9 (SPARSE) Normal Reference range not established. [facility] Comment on above: Performed By: #### 5 5-8 ####SRAVANI LOVE ([id number])[facility])[address] [place] [address] 84886 Hyaline casts Auto (Urine sed) [#/Area] OCCASIONAL Abnormal NONE [facility] Comment on above: Performed By: #### 5 5-8 ####SRAVANI LOVE ([id number])[facility])[address] [place] [address] 33449 Mucus Auto (Urine sed) [#/Area] 4+ /LPF Normal Reference range not established. [facility] Comment on above: Performed By: #### 5 2075-8 ####SRAVANI LOVE ([id number])[facility])[address] [place] [address] 88992 RBC Auto (Urine sed) [#/Area] 6-10 Abnormal NONE, 1-2, 3-5 [facility] Comment on above: Performed By: #### 5 5615-8 ####SRAVANI LOVE ([id number])[facility])[address] [place] [address] 15853 WBC Auto (Urine sed) [#/Area] 1-5 Normal 1-5, NONE [facility] Comment on above: Performed By: #### 5 9815-8 ####SRAVANI LOVE ([id number])[facility])[address] [place] [address] 29256 Basic metabolic 2000 panelon 10-26-2023 Anion gap [Moles/Vol] 14 mmol/L 10 - 2 0 mmol/L [facility] Calcium [Mass/Vol] 10.0 mg/dL 8.6 - 10. 3 mg/dL [facility] Chloride [Moles/Vol] 103 mmol/L 98 - 10 7 mmol/L [facility] CO2 [Moles/Vol] 23 mmol/L 21 - 32 mmol/L [facility] Creatinine [Mass/Vol] 0.74 mg/dL 0.50 - 1.05 mg/dL [facility] eGFR - PINF [facility] Comment on above: Calculations of bella mated GFR are performed using the 2020 CKD-EPI Study Refit equation without the race variable for the IDMS-Traceable creatinine methods. https://jasn.asnjournals.org/content//ASN.2020 988231 Glucose [Mass/Vol] 149 mg/dL High 74 - 99 mg/dL [facility] Potassium [Moles/Vol] 4.6 mmol/L 3.5 - 5.3 mmol/L [facility] Sodium [Moles/Vol] 135 mmol/L Low 136 - 145 mmol/L [facility] Urea nitrogen [Mass/Vol] 23 mg/dL 6 - 23 mg/dL [facility] Anion gap [Moles/Vol] 14 mmol/L Normal 10-20 [facility] Comment on above: Performed By: #### 2 524-7 #### SRAVANI LOVE ([id number]) [facility] [address] [place] [address] Calcium [Mass/Vol] 10.0 mg/dL Normal 8.6-10.3 [facility] Comment on above: Performed By: #### 2 524-7 #### SRAVANI LOVE ([id number]) [facility] [address] [place] [address] Chloride [Moles/Vol] 103 mmol/L Normal 98-107 [facility] Comment on above: Performed By: #### 2 524-7 #### SRAVANI LOVE ([id number]) [facility] [address] [place] [address] CO2 [Moles/Vol] 23 mmol/L Normal 21-32 [facility] Comment on above: Performed By: #### 2 524-7 #### SRAVANI LOVE ([id number]) [facility] [address] [place] [address] 37453 Creatinine [Mass/Vol] 0.74 mg/dL Normal 0.50-1.05 [facility] Comment on above: Performed By: #### 2 524-7 #### SRAVANI LOVE ([id number]) [facility] [address] [place] [address] 85696 GFR/1.73 sq M.predicted MDRD (S/P/Bld) [Vol rate/Area] mL/min/{1.73_m2} Normal >60 [facility] Comment on above: Result Comment: Calc ulations of estimated GFR are performed using the 2020 CKD-EPI Study Refit equation without the race variable for the IDMS-Traceable creatinine methods. https://jasn.asnjournals.org/content/early//ASN.2020 441237 Performed By: #### 2 524-7 #### SRAVANI LOVE ([id number]) [facility] [address] [place] [address] 33889 Glucose [Mass/Vol] 149 mg/dL High 74-99 [facility] Comment on above: Performed By: #### 2 524-7 #### SRAVANI LOVE ([id number]) [facility] [address] [place] [address] 91423 Potassium [Moles/Vol] 4.6 mmol/L Normal 3.5-5.3 [facility] Comment on above: Performed By: #### 2 524-7 #### SRAVANI LOVE ([id number]) [facility] [address] [place] [address] 01250 Sodium [Moles/Vol] 135 mmol/L Low 136-145 [facility] Comment on above: Performed By: #### 2 524-7 #### SRAVANI LOVE ([id number]) [facility] [address] [place] [address] Urea nitrogen [Mass/Vol] 23 mg/dL Normal 6-23 [facility] Comment on above: Performed By: #### 2 524-7 #### SRAVANI LOVE ([id number]) [facility] [address] [place] [address] C reactive proteinon 024 CRP [Mass/Vol] 3.11 mg/dL High <1.00 [facility] Comment on above: Performed By: #### 1 988-5 ####SRAVANI LOVE ([id number])[facility] [place] [address] CBC W Auto Differential pane l (Bld)on 10-26-2023 Basophils (Bld) [#/Vol] 0.04 10*3/uL [facility] Basophils/100 WBC (Bld) 0.3 % 0.0 - 2.0 % [facility] Eosinophils (Bld) [#/Vol] 0.69 10*3/uL [facility] Eosinophils/100 WBC (Bld) 5.0 % 0.0 - 6.0 % [facility] Erythrocyte distribution width (RBC) [Ratio] 14.9 % High 11.5 - 14.5 % [facility] Hematocrit (Bld) [Volume fraction] 46.4 % High 36.0 - 46.0 % [facility] Hemoglobin (Bld) [Mass/Vol] 15.1 g/dL 12.0 - 16.0 g/dL [facility] Immature granulocytes (Bld) [#/Vol] 0.27 10*3/uL [facility] Immature granulocytes/100 WBC (Bld) 2.0 % High 0.0 - 0.9 % [facility] Comment on above: Immature Granulocyte Count (IG) includes promyelocytes, myelocytes and metamyelocytes but does not include bands. Percent differential counts (%) should be interpreted in the context of the absolute cell counts (cells/UL). Interpretation and review of laboratory results Abnormal [facility] Lymphocytes (Bld) [#/Vol] 0.55 10*3/uL Low [facility] Lymphocytes/100 WBC (Bld) 4.0 % 13.0 - 44.0 % [facility] MCH (RBC) [Entitic mass] 27.4 pg 26.0 - 34.0 pg [facility] MCHC (RBC) [Mass/Vol] 32.5 g/dL 32.0 - 36.0 g/dL [facility] MCV (RBC) [Entitic vol] 84 fL 80 - 100 fL [facility] Monocytes (Bld) [#/Vol] 0.16 10*3/uL [facility] Monocytes/100 WBC (Bld) 1.2 % 2.0 - 10.0 % [facility] Neutrophils (Bld) [#/Vol] 12.09 10*3/uL High [facility] Comment on above: Percent differential counts (%) should be interpreted in the context of the absolute cell counts (cells/uL). Neutrophils/100 WBC (Bld) 87.5 % 40.0 - 80.0 % [facility] Nucleated RBC/100 WBC (Bld) [Ratio] 0.0 % [facility] Platelets (Bld) [#/Vol] 327 10*3/uL [facility] RBC (Bld) [#/Vol] 5.52 10*6/uL [facility] WBC (Bld) [#/Vol] 13.8 10*3/uL [facility] Basophils (Bld) [#/Vol] 0.04 x10*3/uL Normal 0.00-0.10 [facility] Comment on above: Performed By: #### 2 524-7 #### SRAVANI LOVE ([id number]) [facility] [address] [place] [address] 83946 Basophils/100 WBC (Bld) 0.3 % Normal 0.0-2.0 [facility] Comment on above: Performed By: #### 2 524-7 #### SRAVANI LOVE ([id number]) [facility] [address] [place] [address] 87027 Eosinophils (Bld) [#/Vol] 0.69 x10*3/uL Normal 0.00-0.70 [facility] Comment on above: Performed By: #### 2 524-7 #### SRAVANI LOVE ([id number]) [facility] [address] [place] [address] 64803 Eosinophils/100 WBC (Bld) 5.0 % Normal 0.0-6.0 [facility] Comment on above: Performed By: #### 2 524-7 #### SRAVANI LOVE ([id number]) [facility] [address] [place] [address] 13329 Erythrocyte distribution width (RBC) [Ratio] 14.9 % High 11.5-14.5 [facility] Comment on above: Performed By: #### 2 524-7 #### SRAVANI LOVE ([id number]) [facility] [address] [place] [address] 33639 Hematocrit (Bld) [Volume fraction] 46.4 % High 36.0-46.0 [facility] Comment on above: Performed By: #### 2 524-7 #### SRAVANI LOVE ([id number]) [facility] [address] [place] [address] 62687 Hemoglobin (Bld) [Mass/Vol] 15.1 g/dL Normal 12.0-16.0 [facility] Comment on above: Performed By: #### 2 524-7 #### SRAVANI LOVE ([id number]) [facility] [address] [place] [address] 02056 Immature granulocytes (Bld) [#/Vol] 0.27 x10*3/uL Normal 0.00-0.70 [facility] Comment on above: Performed By: #### 2 524-7 #### SRAVANI LOVE ([id number]) [facility] [address] [place] [address] 85460 Immature granulocytes/100 WBC (Bld) 2.0 % High 0.0-0.9 [facility] Comment on above: Result Comment: Donna ture Granulocyte Count (IG) includes promyelocytes, myelocytes and metamyelocytes but does not include bands. Percent differential counts (%) should be interpreted in the context of the absolute cell counts (cells/UL). Performed By: #### 2 524-7 #### SRAVANI LOVE ([id number]) [facility] [address] [place] [address] 95809 Lymphocytes (Bld) [#/Vol] 0.55 x10*3/uL Low 1.20-4.80 [facility] Comment on above: Performed By: #### 2 524-7 #### SRAVANI LOVE ([id number]) [facility] [address] [place] [address] 36786 Lymphocytes/100 WBC (Bld) 4.0 % Normal 13.0-44.0 [facility] Comment on above: Performed By: #### 2 524-7 #### SRAVANI LOVE ([id number]) [facility] [address] [place] [address] 26976 MCH (RBC) [Entitic mass] 27.4 pg Normal 26.0-34.0 [facility] Comment on above: Performed By: #### 2 524-7 #### SRAVANI LOVE ([id number]) [facility] [address] [place] [address] 02074 MCHC (RBC) [Mass/Vol] 32.5 g/dL Normal 32.0-36.0 [facility] Comment on above: Performed By: #### 2 524-7 #### SRAVANI LOVE ([id number]) [facility] [address] [place] [address] 85669 MCV (RBC) [Entitic vol] 84 fL Normal 80-100 [facility] Comment on above: Performed By: #### 2 524-7 #### SRAVANI LOVE ([id number]) [facility] [address] [place] [address] 59903 Monocytes (Bld) [#/Vol] 0.16 x10*3/uL Normal 0.10-1.00 [facility] Comment on above: Performed By: #### 2 524-7 #### SRAVANI LOVE ([id number]) [facility] [address] [place] [address] 09379 Monocytes/100 WBC (Bld) 1.2 % Normal 2.0-10.0 U [facility] Comment on above: Performed By: #### 2 524-7 #### SRAVANI LOVE ([id number]) [facility] [address] [place] [address] 13810 Neutrophils (Bld) [#/Vol] 12.09 x10*3/uL High 1.20-7.70 [facility] Comment on above: Result Comment: Perc ent differential counts (%) should be interpreted in the context of the absolute cell counts (cells/uL). Performed By: #### 2 524-7 #### SRAVANI LOVE ([id number]) [facility] [address] [place] [address] 56474 Neutrophils/100 WBC (Bld) 87.5 % Normal 40.0-80.0 [facility] Comment on above: Performed By: #### 2 524-7 #### SRAVNAI LOVE ([id number]) [facility] [address] [place] [address] 44397 Nucleated RBC/100 WBC (Bld) [Ratio] 0.0 /100 WBCs Normal 0.0-0.0 [facility] Comment on above: Performed By: #### 2 524-7 #### SRAVANI LOVE ([id number]) [facility] [address] [place] [address] 05373 Platelets (Bld) [#/Vol] 327 x10*3/uL Normal 150-450 [facility] Comment on above: Performed By: #### 2 524-7 #### SRAVANI LOVE ([id number]) [facility] [address] [place] [address] 60797 RBC (Bld) [#/Vol] 5.52 x10*6/uL High 4.00-5.20 [facility] Comment on above: Performed By: #### 2 524-7 #### SRAVANI LOVE ([id number]) [facility] [address] [place] [address] WBC (Bld) [#/Vol] 13.8 x10*3/uL High 4.4-11.3 [facility] Comment on above: Performed By: #### 2 524-7 #### SRAVANI LOVE ([id number]) [facility] [address] [place] [address] Cardiac Enzymes - CPKon 10-11 CK [Catalytic activity/Vol] 3077 U/L High 0 - 215 U/L [facility] Creatine kinaseon 10-26-2023 CK [Catalytic activity/Vol] 3077 U/L High 0-215 [facility] Comment on above: Performed By: #### 2 524-7 #### SRAVANI LOVE ([id number]) [facility] [address] [place] [address] ECG 12-LEADon 10-26-2023 ECG 12-LEAD Ventricular Rate 109 Atrial Rate 109 P-R Interval 138 QRS Duration 66 Q-T Interval 302 QTC Calculation(Bazett) 406 P Hettick 47 R Hettick 7 T Hettick 7 QRS Count 18 Q Onset 222 P Onset 153 P Offset 203 T Offset 373 QTC Fredericia 368 Diagnosis Sinus tachycardia Low voltage QRS Cannot rule out Anterior infarct (cited on or before 18-OCT-2023) Abnormal ECG When compared with ECG of 18-OCT-2023 00:23, No significant change was found See ED provider note for full interpretation and clinical correlation Confirmed by Melany Arteaga ([id number]) on 10/30/2023 11:34:03 PM Normal [facility] ESR Westergren method (Bld) [Velocity]on 10-26-2023 ESR (Bld) [Velocity] 26 mm/h High 0-20 [facility] Comment on above: Performed By: #### 4 537-7 ####SRAVANI LOVE ([id number])[facility])[address] [place] [address] EXTENDED MYOSITIS PANELon Annotation comment [Interpretation] Narrative See Note Normal [facility] Comment on above: Result Comment: INTE RPRETIVE INFORMATION: Extended Myositis Panel If present, myositis-specific antibodies (MSA) are specific for myositis, and may be useful in establishing diagnosis as well as prognosis. MSAs are generally regarded as mutually exclusive with rare exceptions; the occurrence of two or more MSAs should be carefully evaluated in the context of patient's clinical presentation. Myositis-associated antibodies (MAA) may be found in patients with CTD including overlap syndromes, and are generally not specific for myositis. The following table will help in identifying the association of any antibodies found as either MSAs or Arlet. Antibody Specificity . . . . . . . . . . . . MSA . . . . MAA SSA 52 (Ro) (LILLY) Antibody IgG . . . . . . . . . . . . . X SSA 60 (Ro) (LILLY) Antibody IgG . . . . . . . . . . . . . X San/FUR CUTTING MACHINE OPERATOR (LILLY) Ab, IgG . . . . . . . . . . . . . . . . X Loraine-1 (histidyl-tRNA synthetase) Ab, IgG . . X PL-12 (alanyl-tRNA synthetase) Antibody . . X PL-7 (threonyl-tRNA synthetase) Antibody . . X EJ (glycyl-tRNA synthetase) Antibody . . . . X OJ (isoleucyl-tRNA synthetase) Antibody . . X SRP (Signal Recognition Particle) Ab . . . . X Ku Antibody . . . . . . . . . . . . . . . . . . . . . . X PM/SCL 100 Antibody, IgG . . . . . . . . . . . . . . . . X Fibrillarin (U3 FUR CUTTING MACHINE OPERATOR) Ab, IgG . . . . . . . . . . . . . . X Mi-2 (nuclear helicase protein) Antibody . . X P155/140 Antibody . . . . . . . . . . . . . X TIF-1 gamma (155 kDa) Ab . . . . . . . . . . X SAE1 (SUMO activating enzyme) Ab . . . . . . X MDA5 (CADM-140) Ab . . . . . . . . . . . . X NXP2 (Nuclear matrix proten-2)Ab . . . . . . X This test was developed and its performance characteristics determined by [facility] [employer]. It has not been cleared or approved by the US Food and Drug Administration. This test was performed in a CLIA certified laboratory and is intended for clinical purposes. Performed By: #### 2 157-6 #### SRAVANI LOVE ([id number]) [facility] [address] [place] [address] 25083 Ej Ab Ql (S) Negative Normal Negative [facility] Comment on above: Performed By: #### 2 157-6 #### LASSITER KATE ([id number]) [facility] [address] [place] [address] 45128 Fibrillarin Ab Ql (S) Negative Normal Negative [facility] Comment on above: Result Comment: Inte rpretive Information: Fibrillarin (U3 FUR CUTTING MACHINE OPERATOR) Antibody, IgG The presence of fibrillarin (U3-FUR CUTTING MACHINE OPERATOR) IgG antibodies in association with an LESTER IFA nucleolar pattern is suggestive of systemic sclerosis (SSc). In SSc, these antibodies are associated with distinct clinical features, such as younger age at disease onset, frequent internal organ involvement (pulmonary hypertension, myositis and renal disease). Fibrillarin antibodies are detected more frequently in patients with SSc compared to other ethnic groups. Strong correlation with LESTER IFA results is recommended. In a multi-ethnic cohort of SSc patients (n=98), U3-FUR CUTTING MACHINE OPERATOR antibodies detected by immunoblot had an agreement of 98.9 percent with the gold standard immunoprecipitation (IP) assay. Approximately 71 percent (5/7) of the borderline U3-FUR CUTTING MACHINE OPERATOR results with LESTER nucleolar pattern in this cohort were IP negative. This test was developed and its performance characteristics determined by [facility] [employer]. It has not been cleared or approved by the [place] Food and Drug Administration. This test was performed in a CLIA certified laboratory and is intended for clinical purposes. Performed By: [facility] [address] [place] [address] Senior Linux Systems Engineer: Wilver Smith MD, PhD CLIA Number: [id number] Performed By: #### 2 157-6 #### SRAVANI LOVE ([id number]) [facility] [address] [place] [address] 25360 Loraine-1 extractable nuclear IgG Qn (S) 2 AU/mL Normal 0-40 [facility] Comment on above: Result Comment: INTE RPRETIVE INFORMATION: Loraine-1 Antibody, IgG 29 AU/mL or less.........Negative 30-40 AU/mL..............Equivocal 41 AU/mL or greater......Positive Presence of Loraine-1 (antihistidyl transfer RNA [t-RNA] synthetase) antibody is associated with polymyositis and may also be seen in patients with dermatomyositis. Loraine-1 antibody is associated with pulmonary involvement (interstitial lung disease), Raynaud phenomenon, arthritis, and computing systems mechanic's hands (implicated in antisynthetase syndrome). Performed By: #### 2 157-6 #### SRAVANI LOVE ([id number]) [facility] [address] [place] [address] Ku Ab Ql (S) Negative Normal Negative [facility] Comment on above: Performed By: #### 2 157-6 #### SRAVANI LOVE ([id number]) [facility] [address] [place] [address] MDA5 Ab Line blot Ql (S) Negative Normal Negative [facility] Comment on above: Performed By: #### 2 157-6 #### SRAVANI LOVE ([id number]) [facility] [address] [place] [address] 59476 Mi-2 Ab Ql (S) Negative Normal Negative [facility] Comment on above: Performed By: #### 2 157-6 #### SRAVANI LOVE ([id number]) [facility] [address] [place] [address] 83995 Mj Ab Line blot Ql (S) Negative Normal Negative [facility] Comment on above: Performed By: #### 2 157-6 #### SRAVANI LOVE ([id number]) [facility] [address] [place] [address] Nuclear Ab Ql (S) Negative Normal Negative [facility] Comment on above: Performed By: #### 2 157-6 #### SRAVANI LOVE ([id number]) [facility] [address] [place] [address] OJ Ab Ql (S) Negative Normal Negative [facility] Comment on above: Performed By: #### 2 157-6 #### SRAVANI LOVE ([id number]) [facility] [address] [place] [address]-12 Ab Ql (S) Negative Normal Negative [facility] Comment on above: Performed By: #### 2 157-6 #### SRAVANI LOVE ([id number]) [facility] [address] [place] [address]-7 Ab Ql (S) Negative Normal Negative [facility] Comment on above: Performed By: #### 2 157-6 #### SRAVANI LOVE ([id number]) [facility] [address] [place] [address] 35191 PM-SCL-100 Ab Line blot Ql (S) Negative Normal Negative [facility] Comment on above: Result Comment: INTE RPRETIVE INFORMATION: PM/Scl-100 Antibody, IgG by Immunoblot The presence of PM/Scl-100 IgG antibody along with a positive LESTER IFA nucleolar pattern is associated with connective tissue diseases such as polymyositis (PM), dermatomyositis (DM), systemic sclerosis (SSc), and polymyositis/systemic sclerosis overlap syndrome. The clinical relevance of PM/Scl-100 IgG antibody with a negative LESTER IFA nucleolar pattern is unknown. PM/Scl-100 is the main target epitope of the PM/Scl complex, although antibodies to other targets not detected by this assay may occur. This test was developed and its performance characteristics determined by [facility] [employer]. It has not been cleared or approved by the US Food and Drug Administration. This test was performed in a CLIA certified laboratory and is intended for clinical purposes. Performed By: #### 2 157-6 #### SRAVANI LOVE ([id number]) [facility] [address] [place] [address] Signal Recognition Particle (SRP) Ab Ql Negative Normal Negative [facility] Comment on above: Performed By: #### 2 157-6 #### SRAVANI LOVE ([id number]) [facility] [address] [place] [address] Sjogrens syndrome-A extractable nuclear 60kD Ab Qn (S) 1 AU/mL Normal 0-40 [facility] Comment on above: Result Comment: REFE RENCE INTERVAL: SSA-60 (Ro60) (LILLY) Antibody, IgG 29 AU/mL or Less ............. Negative 30 - 40 AU/mL ................ Equivocal 41 AU/mL or Greater .......... Positive Performed By: #### 2 157-6 #### SRAVANI LOVE ([id number]) [facility] [address] [place] [address] Sjogrens syndrome-A extractable nuclear IgG Ql (S) 2 AU/mL Normal 0-40 [facility] Comment on above: Result Comment: INTE RPRETIVE INFORMATION: SSA-52 (Ro52) (LILLY) Antibody, IgG 29 AU/mL or Less ............. Negative 30 - 40 AU/mL ................ Equivocal 41 AU/mL or Greater .......... Positive SSA-52 (Ro52) and/or SSA-60 (Ro60) antibodies are associated with a diagnosis of Sjogren syndrome, systemic lupus erythematosus (SLE), and systemic sclerosis. SSA-52 antibody overlaps significantly with the major SSc-related antibodies. SSA-52 (Ro52) antibody occurs frequently in patients with inflammatory myopathies, often in the presence of interstitial lung disease. Performed By: #### 2 157-6 #### SRAVANI LOVE ([id number]) [facility] [address] [place] [address] SUMO-activating enzyme subunit 1 Ab Line blot Ql (S) Negative Normal Negative [facility] Comment on above: Performed By: #### 2 157-6 #### SRAVANI LOVE ([id number]) [facility] [address] [place] [address] TIF1-gamma Ab Line blot Ql (S) Negative Normal Negative [facility] Comment on above: Performed By: #### 2 157-6 #### SRAVANI LOVE ([id number]) [facility] [address] [place] [address] U1 small nuclear ribonucleoprotein IgG Qn (S) 3 Units Normal 0-19 [facility] Comment on above: Result Comment: INTE RPRETIVE INFORMATION: San/FUR CUTTING MACHINE OPERATOR (LILLY) Antibody, IgG 19 Units or Less ............. Negative 20 to 39 Units ............... Weak Positive 40 to 80 Units ............... Moderate Positive 81 Units or greater .......... Strong Positive San/FUR CUTTING MACHINE OPERATOR antibodies are frequently seen in patients with mixed connective tissue disease (MCTD) and are also associated with other systemic autoimmune rheumatic diseases (SARDs) such as systemic lupus erythematosus (SLE), systemic sclerosis, and myositis. Antibodies targeting the San/FUR CUTTING MACHINE OPERATOR antigenic complex also recognize San antigens, therefore, the San antibody response must be considered when interpreting these results. Performed By: #### 2 157-6 #### SRAVANI LOVE ([id number]) [facility] [address] [place] [address] Hepatic function 2000 panelo n 10-26-2023 Albumin BCP dye [Mass/Vol] 3.3 g/dL Low 3.4-5.0 [facility] Comment on above: Performed By: #### 2 4325-3 ####SRAVANI LOVE ([id number])[facility])[address] [place] [address] ALP [Catalytic activity/Vol] 72 U/L Normal 33-110 [facility] Comment on above: Performed By: #### 2 4325-3 ####SRAVANI LOVE ([id number])[facility])[address] [place] [address] ALT With P-5'-P [Catalytic activity/Vol] 96 U/L High 7-45 [facility] Comment on above: Result Comment: Glendy ents treated with Sulfasalazine may generate falsely decreased results for ALT. Performed By: #### 2 4325-3 ####SRAVANI LOVE ([id number])[facility])[address] [place] [address] 39889 AST With P-5'-P [Catalytic activity/Vol] 98 U/L High 9-39 [facility] Comment on above: Performed By: #### 2 4325-3 ####SRAVANI LOVE ([id number])[facility])[address] [place] [address] 51407 Bilirubin [Mass/Vol] 0.9 mg/dL Normal 0.0-1.2 [facility] Comment on above: Performed By: #### 2 5-3 ####SRAVANI LOVE ([id number])[facility])[address] [place] [address] 81460 Bilirubin.direct [Mass/Vol] 0.2 mg/dL Normal 0.0-0.3 [facility] Comment on above: Performed By: #### 2 4325-3 ####SRAVANI LOVE ([id number])[facility])[address] [place] [address] 20672 Protein [Mass/Vol] 6.4 g/dL Normal 6.4-8.2 [facility] Comment on above: Performed By: #### 2 4325-3 ####SRAVANI LOVE ([id number])[facility])[address] [place] [address] 81049 Natriuretic peptide B [Mass/ Vol]on 10-26-2023 Natriuretic peptide B (Bld) [Mass/Vol] 23 pg/mL Normal 0-99 [facility] Comment on above: Order Comment: <100 pg/mL - Heart failure [id number] pg/mL - Intermediate probability of acute heart failure exacerbation. Correlate with clinical context and patient history. >=300 pg/mL - Heart Failure likely. Correlate with clinical context and patient history.BNP testing is performed using different testing methodology at [facility] than at other bay area hospital. Direct result comparisons should only be made within the same method. Performed By: #### 3 0934-4 ####SRAVANI LOVE ([id number])[facility] [place] [address] No Panel Informationon 10-25 Interpretation and review of laboratory results Abnormal [facility] Phosphateon 10-26-2023 Phosphate [Mass/Vol] 3.1 mg/dL Normal 2.5-4.9 [facility] Comment on above: Result Comment: The performance characteristics of phosphorus testing in heparinized plasma have been validated by the individual laboratory site where testing is performed. Testing on heparinized plasma is not approved by the FDA; however, such approval is not necessary. Performed By: #### 2 777-1 ####SRAVANI LOVE ([id number])[facility] [place] [id number] Tropinin I.cardiac panel Hig h sensitivity methodon 10-26-2023 Interpretation and review of laboratory results Abnormal [facility] Less than 99th percentile of normal range cutoff- Female and children under 18 years old <14 ng/L; Male <21 ng/L: Negative Repeat testing should be performed if clinically indicated. Female and children under 18 years old 14-50 ng/L; Male 21-50 ng/L: Consistent with possible cardiac damage and possible increased clinical risk. Serial measurements may help to assess extent of myocardial damage. >50 ng/L: Consistent with cardiac damage, increased clinical risk and myocardial infarction. Serial measurements may help assess extent of myocardial damage. NOTE: Children less than 1 year old may have higher baseline troponin levels and results should be interpreted in conjunction with the overall clinical context. NOTE: Troponin I testing is performed using a different testing methodology at [facility] [place] than at other bay area hospital. Direct result comparisons should only be made within the same method. [facility] Troponin I, High Sensitivity on 10-26-2023 Tropinin I.cardiac panel High sensitivity method 43 ng/L High 0 - 13 ng/L [facility] Troponin I.cardiac panelon 0 10-26-2023 Tropinin I.cardiac panel High sensitivity method 43 ng/L High 0-13 [facility] Comment on above: Order Comment: Venip uncture immediately after or during the administration of Metamizole may lead to falsely low results. Testing should be performed immediately prior to Metamizole dosing. Performed By: #### 2 524-7 #### LASSITER KATE ([id number]) [facility] [address] [place] [address] XR CHEST 1 VIEWon 10-26-2023 XR CHEST 1 VIEW Interpreted By: Desean Dugan, STUDY: XR CHEST 1 VIEW; 10/26/2023 11:20 pm INDICATION: Signs/Symptoms:Shortnes s of breath. COMPARISON: Chest radiograph 10/17/2023. ACCESSION NUMBER(S): [id number] ORDERING CLINICIAN: JIM ESCOBEDO FINDINGS: CARDIOMEDIASTINAL SILHOUETTE: Cardiomediastinal silhouette is normal in size and configuration. LUNGS/PLEURA: There is subsegmental linear atelectasis in the right lung base. There are no consolidations.There are no pleural effusions. There is no demonstrated pneumothorax. BONES: No evidence of acute osseous abnormality. IMPRESSION: 1. No evidence of acute cardiopulmonary process. Signed by: Desean Dugan 10/26/2023 11:48 PM Dictation workstation: [id number] Normal [facility] XR Chest Single viewon 10-25 1. No evidence of ac quechan cardiopulmonary process. Signed by: Desean Dugan 10/26/2023 11:48 PM Dictation workstation: [id number] [facility] Interpreted By: Desean Dugan, STUDY: XR CHEST 1 VIEW; 10/26/2023 11:20 pm INDICATION: Signs/Symptoms:Shortnes s of breath. COMPARISON: Chest radiograph 10/17/2023. ACCESSION NUMBER(S): [id number] ORDERING CLINICIAN: JIM ESCOBEDO FINDINGS: CARDIOMEDIASTINAL SILHOUETTE: Cardiomediastinal silhouette is normal in size and configuration. LUNGS/PLEURA: There is subsegmental linear atelectasis in the right lung base. There are no consolidations.There are no pleural effusions. There is no demonstrated pneumothorax. BONES: No evidence of acute osseous abnormality. [facility] Desean Dugan, DO - 10/26/2023 Interpreted By: Desean Dugan, STUDY: XR CHEST 1 VIEW; 10/26/2023 11:20 pm INDICATION: Signs/Symptoms:Shortnes s of breath. COMPARISON: Chest radiograph 10/17/2023. ACCESSION NUMBER(S): [id number] ORDERING CLINICIAN: JIM ESCOBEDO FINDINGS: CARDIOMEDIASTINAL SILHOUETTE: Cardiomediastinal silhouette is normal in size and configuration. LUNGS/PLEURA: There is subsegmental linear atelectasis in the right lung base. There are no consolidations.There are no pleural effusions. There is no demonstrated pneumothorax. BONES: No evidence of acute osseous abnormality. IMPRESSION: 1. No evidence of acute cardiopulmonary process. Signed by: Desean Dugan 10/26/2023 11:48 PM Dictation workstation: [id number] [facility] Work Phone: Radiology Study observation (narrative) [facility] Work Phone: XR Chest Single viewOrdered By: Desean Dugan on 10-26-2023 [facility] Work Phone: CBC panel Auto (Bld)on 10-20 Erythrocyte distribution width (RBC) [Ratio] 14.6 % High 11.5 - 14.5 % [facility] Hematocrit (Bld) [Volume fraction] 37.4 % 36.0 - 46.0 % [facility] Hemoglobin (Bld) [Mass/Vol] 12.2 g/dL 12.0 - 16.0 g/dL [facility] Interpretation and review of laboratory results Abnormal [facility] MCH (RBC) [Entitic mass] 27.4 pg 26.0 - 34.0 pg [facility] MCHC (RBC) [Mass/Vol] 32.6 g/dL 32.0 - 36.0 g/dL [facility] MCV (RBC) [Entitic vol] 84 fL 80 - 100 fL [facility] Nucleated RBC/100 WBC (Bld) [Ratio] 0.0 % [facility] Platelets (Bld) [#/Vol] 200 10*3/uL [facility] RBC (Bld) [#/Vol] 4.46 10*6/uL [facility] WBC (Bld) [#/Vol] 6.8 10*3/uL [facility] Erythrocyte distribution width (RBC) [Ratio] 14.6 % High 11.5-14.5 [facility] Comment on above: Performed By: #### 9 4149-2 #### SRAVANI LOVE ([id number]) [facility] [address] [place] [address] Hematocrit (Bld) [Volume fraction] 37.4 % Normal 36.0-46.0 [facility] Comment on above: Performed By: #### 9 4149-2 #### SRAVANI LOVE ([id number]) [facility] [address] [place] [address] Hemoglobin (Bld) [Mass/Vol] 12.2 g/dL Normal 12.0-16.0 [facility] Comment on above: Performed By: #### 9 4149-2 #### SRAVANI LOVE ([id number]) [facility] [address] [place] [address] 07112 MCH (RBC) [Entitic mass] 27.4 pg Normal 26.0-34.0 [facility] Comment on above: Performed By: #### 9 4149-2 #### SRAVANI LOVE ([id number]) [facility] [address] [place] [address] 35958 MCHC (RBC) [Mass/Vol] 32.6 g/dL Normal 32.0-36.0 [facility] Comment on above: Performed By: #### 9 4149-2 #### SRAVANI LOVE ([id number]) [facility] [address] [place] [address] 13773 MCV (RBC) [Entitic vol] 84 fL Normal 80-100 [facility] Comment on above: Performed By: #### 9 4149-2 #### SRAVANI LOVE ([id number]) [facility] [address] [place] [address] 45410 Nucleated RBC/100 WBC (Bld) [Ratio] 0.0 /100 WBCs Normal 0.0-0.0 [facility] Comment on above: Performed By: #### 9 4149-2 #### SRAVANI LOVE ([id number]) [facility] [address] [place] [address] 51885 Platelets (Bld) [#/Vol] 200 x10*3/uL Normal 150-450 [facility] Comment on above: Performed By: #### 9 4149-2 #### SRAVANI LOVE ([id number]) [facility] [address] [place] [address] 79767 RBC (Bld) [#/Vol] 4.46 x10*6/uL Normal 4.00-5.20 [facility] Comment on above: Performed By: #### 9 4149-2 #### SRAVANI LOVE ([id number]) [facility] [address] [place] [address] 51943 WBC (Bld) [#/Vol] 6.8 x10*3/uL Normal 4.4-11.3 [facility] Comment on above: Performed By: #### 9 4149-2 #### SRAVANI LOVE ([id number]) [facility] [address] [place] [address] 17639 Comprehensive metabolic 2000 panelon 10-21-2023 Albumin BCP dye [Mass/Vol] 2.8 g/dL Low 3.4 - 5.0 g/dL [facility] ALP [Catalytic activity/Vol] 76 U/L 33 - 110 U/L [facility] ALT With P-5'-P [Catalytic activity/Vol] 225 U/L High 7 - 45 U/L [facility] Comment on above: Patients treated wit h Sulfasalazine may generate falsely decreased results for ALT. Anion gap [Moles/Vol] 9 mmol/L Low 10 - 2 0 mmol/L [facility] AST With P-5'-P [Catalytic activity/Vol] 173 U/L High 9 - 39 U/L [facility] Bilirubin [Mass/Vol] 0.3 mg/dL 0.0 - 1 .2 mg/dL [facility] Calcium [Mass/Vol] 8.4 mg/dL Low 8.6 - 10. 3 mg/dL [facility] Chloride [Moles/Vol] 101 mmol/L 98 - 10 7 mmol/L [facility] CO2 [Moles/Vol] 28 mmol/L 21 - 32 mmol/L [facility] Creatinine [Mass/Vol] 0.42 mg/dL Low 0.50 - 1.05 mg/dL [facility] eGFR - PINF [facility] Comment on above: Calculations of bella mated GFR are performed using the 2020 CKD-EPI Study Refit equation without the race variable for the IDMS-Traceable creatinine methods. https://jasn.asnjournals.org/content/early//ASN.2020 972312 Glucose [Mass/Vol] 94 mg/dL 74 - 99 mg/dL [facility] Potassium [Moles/Vol] 4.0 mmol/L 3.5 - 5.3 mmol/L [facility] Protein [Mass/Vol] 5.6 g/dL Low 6.4 - 8.2 g/dL [facility] Sodium [Moles/Vol] 134 mmol/L Low 136 - 145 mmol/L [facility] Urea nitrogen [Mass/Vol] 8 mg/dL 6 - 23 mg/dL [facility] Albumin BCP dye [Mass/Vol] 2.8 g/dL Low 3.4-5.0 [facility] Comment on above: Performed By: #### 9 4149-2 #### SRAVANI LOVE ([id number]) [facility] [address] [place] [address] ALP [Catalytic activity/Vol] 76 U/L Normal 33-110 [facility] Comment on above: Performed By: #### 9 4149-2 #### SRAVANI LOVE ([id number]) [facility] [address] [place] [address] ALT With P-5'-P [Catalytic activity/Vol] 225 U/L High 7-45 [facility] Comment on above: Result Comment: Glendy ents treated with Sulfasalazine may generate falsely decreased results for ALT. Performed By: #### 9 4149-2 #### SRAVANI LOVE ([id number]) [facility] [address] [place] [address] Anion gap [Moles/Vol] 9 mmol/L Low 10-20 [facility] Comment on above: Performed By: #### 9 4149-2 #### SRAVANI LOVE ([id number]) [facility] [address] [place] [address] AST With P-5'-P [Catalytic activity/Vol] 173 U/L High 9-39 [facility] Comment on above: Performed By: #### 9 4149-2 #### SRAVANI LOVE ([id number]) [facility] [address] [place] [address] Bilirubin [Mass/Vol] 0.3 mg/dL Normal 0.0-1.2 [facility] Comment on above: Performed By: #### 9 4149-2 #### SRAVANI LOVE ([id number]) [facility] [address] [place] [address] Calcium [Mass/Vol] 8.4 mg/dL Low 8.6-10.3 [facility] Comment on above: Performed By: #### 9 4149-2 #### SRAVANI LOVE ([id number]) [facility] [address] [place] [address] Chloride [Moles/Vol] 101 mmol/L Normal 98-107 [facility] Comment on above: Performed By: #### 9 4149-2 #### SRAVANI LOVE ([id number]) [facility] [address] [place] [address] CO2 [Moles/Vol] 28 mmol/L Normal 21-32 [facility] Comment on above: Performed By: #### 9 4149-2 #### SRAVANI LOVE ([id number]) [facility] [address] [place] [address] Creatinine [Mass/Vol] 0.42 mg/dL Low 0.50-1.05 [facility] Comment on above: Performed By: #### 9 4149-2 #### SRAVANI LOVE ([id number]) [facility] [address] [place] [address] 87916 GFR/1.73 sq M.predicted MDRD (S/P/Bld) [Vol rate/Area] mL/min/{1.73_m2} Normal >60 [facility] Comment on above: Result Comment: Calc ulations of estimated GFR are performed using the 2020 CKD-EPI Study Refit equation without the race variable for the IDMS-Traceable creatinine methods. https://jasn.asnjournals.org/content/early//ASN.2020 246901 Performed By: #### 9 4149-2 #### SRAVANI LOVE ([id number]) [facility] [address] [place] [address] 39942 Glucose [Mass/Vol] 94 mg/dL Normal 74-99 [facility] Comment on above: Performed By: #### 9 4149-2 #### SRAVANI LOVE ([id number]) [facility] [address] [place] [address] 75213 Potassium [Moles/Vol] 4.0 mmol/L Normal 3.5-5.3 [facility] Comment on above: Performed By: #### 9 4149-2 #### SRAVANI LOVE ([id number]) [facility] [address] [place] [address] 86163 Protein [Mass/Vol] 5.6 g/dL Low 6.4-8.2 [facility] Comment on above: Performed By: #### 9 4149-2 #### SRAVANI LOVE ([id number]) [facility] [place] [address] Sodium [Moles/Vol] 134 mmol/L Low 136-145 [facility] Comment on above: Performed By: #### 9 4149-2 #### SRAVANI LOVE ([id number]) [facility] [address] [place] [address] 27791 Urea nitrogen [Mass/Vol] 8 mg/dL Normal 6-23 [facility] Comment on above: Performed By: #### 9 4149-2 #### SRAVANI LOVE ([id number]) [facility] [address] [place] [address] 79832 Creatine Kinaseon 10-21-2023 CK [Catalytic activity/Vol] 2911 U/L High 0 - 215 U/L [facility] Creatine kinaseon 10-21-2023 CK [Catalytic activity/Vol] 2911 U/L High 0-215 [facility] Comment on above: Performed By: #### 9 4149-2 #### SRAVANI LOVE ([id number]) [facility] [address] [place] [address] 71680 Immunoglobulin light chains. free panel (S)on 10-21-2023 Immunoglobulin light chains.kappa [Mass/Vol] 8.59 mg/dL High 0.33 - 1.94 mg/dL [facility] Work Phone: Immunoglobulin light chains.kappa/Immunoglob ulin light chains.lambda (S) [Mass ratio] 1.68 High 0.26 - 1.65 [facility] Work Phone: Immunoglobulin light chains.lambda [Mass/Vol] 5.10 mg/dL High 0.57 - 2.63 mg/dL [facility] Work Phone: Interpretation and review of laboratory results Abnormal [facility] Work Phone: Undetected antigen excess is a rare event but cannot be excluded. If these free light chain results do not agree with other clinical or laboratory findings, or if the sample is from a patient that has previously demonstrated antigen excess, the result must be checked by retesting at a higher sample dilution. Results should always be interpreted in conjunction with other laboratory tests and clinical evidence; any anomalies should be discussed with the testing laboratory. [facility] Work Phone: [facility] Work Phone: No Panel Informationon 10-20 Interpretation and review of laboratory results Abnormal [facility] Tropinin I.cardiac panel Hig h sensitivity methodon 10-21-2023 Interpretation and review of laboratory results Abnormal [facility] Less than 99th percentile of normal range cutoff- Female and children under 18 years old <14 ng/L; Male <21 ng/L: Negative Repeat testing should be performed if clinically indicated. Female and children under 18 years old 14-50 ng/L; Male 21-50 ng/L: Consistent with possible cardiac damage and possible increased clinical risk. Serial measurements may help to assess extent of myocardial damage. >50 ng/L: Consistent with cardiac damage, increased clinical risk and myocardial infarction. Serial measurements may help assess extent of myocardial damage. NOTE: Children less than 1 year old may have higher baseline troponin levels and results should be interpreted in conjunction with the overall clinical context. NOTE: Troponin I testing is performed using a different testing methodology at [facility] [place] than at other [facility]. Direct result comparisons should only be made within the same method. [facility] Troponin I, High Sensitivity on 10-21-2023 Tropinin I.cardiac panel High sensitivity method 336 ng/L Critically high 0 - 13 ng/L [facility] Comment on above: Previous result veri fied on 10/20/2023 0848 on specimen/case [id number] called with component [facility] for procedure Troponin I, High Sensitivity with value 409 ng/L. Troponin I.cardiac panelon 0 10-21-2023 Tropinin I.cardiac panel High sensitivity method 336 ng/L Critically high 0-13 [facility] Comment on above: Order Comment: Less than 99th percentile of normal range cutoff-Female and children under 18 years old <14 ng/L; Male <21 ng/L: NegativeRepeat testing should be performed if clinically indicated.Female and children under 18 years old 14-50 ng/L; Male 21-50 ng/L:Consistent with possible cardiac damage and possible increased clinicalrisk. Serial measurements may help to assess extent of myocardial damage.>50 ng/L: Consistent with cardiac damage, increased clinical risk andmyocardial infarction. Serial measurements may help assess extent ofmyocardial damage.NOTE: Children less than 1 year old may have higher baseline troponinlevels and results should be interpreted in conjunction with the overallclinical context.NOTE: Troponin I testing is performed using a differenttesting methodology at [facility] [place] than at [facility]. Direct result comparisons should onlybe made within the same method. Result Comment: Prev ious result verified on 10/20/2023 0848 on specimen/case [id number] called with component [facility] for procedure Troponin I, High Sensitivity with value 409 ng/L. Performed By: #### 9 4149-2 #### LASSITER KATE ([id number]) [facility] [address] [place] [address] US Liver limitedon 4 1. Probable fatty infiltration of the liver. 2. Cholelithiasis. MACRO: None. Signed by: David De Jesus 10/21/2023 8:34 AM Dictation workstation: [id number] MMODAL Interpreted By: David De Jesus, STUDY: US ABDOMEN LIMITED LIVER; 8:32 am INDICATION: Signs/Symptoms:Elevated LFT. COMPARISON: None. ACCESSION NUMBER(S): [id number] ORDERING CLINICIAN: ARABELLA EDWARDS TECHNIQUE: Limited abdominal ultrasound of the right upper quadrant was performed utilizing henley scale imaging. FINDINGS: Liver: There is diffuse increased echogenicity of the hepatic parenchyma which can be seen with fatty infiltration or cirrhosis of the liver. Gallbladder: Gallbladder is filled with stones with resultant acoustic shadowing. Sonographic Lynch's sign: Negative Pancreas: Pancreas is predominantly obscured by bowel gas. CBD: 0.33 cm Right Kidney: No pathologic findings are noted. MMODAL David De Jesus MD - 10/21/2023 Interpreted By: David De Jesus, STUDY: US ABDOMEN LIMITED LIVER; 8:32 am INDICATION: Signs/Symptoms:Elevated LFT. COMPARISON: None. ACCESSION NUMBER(S): [id number] ORDERING CLINICIAN: ARABELLA EDWARDS TECHNIQUE: Limited abdominal ultrasound of the right upper quadrant was performed utilizing henley scale imaging. FINDINGS: Liver: There is diffuse increased echogenicity of the hepatic parenchyma which can be seen with fatty infiltration or cirrhosis of the liver. Gallbladder: Gallbladder is filled with stones with resultant acoustic shadowing. Sonographic Lynch's sign: Negative Pancreas: Pancreas is predominantly obscured by bowel gas. CBD: 0.33 cm Right Kidney: No pathologic findings are noted. IMPRESSION: 1. Probable fatty infiltration of the liver. 2. Cholelithiasis. MACRO: None. Signed by: David De Jesus 10/21/2023 8:34 AM Dictation workstation: [id number] [facility] Work Phone: Liver limitedOrdered By: David De Jesus on 10-21-2023 [facility] Work Phone: LESTER with Reflex to ENAOrdere d By: Debby Elizabeth on 10-20-2023 Nuclear Ab Hep2 substrate Ql (S) Negative Negative [facility] Comment on above: The Antinuclear Anti body (LESTER) test was performed using indirect immunofluorescence assay with HEp-2 cells slide. Acute hepatitis 2000 panel ( S)on 10-20-2023 HAV IgM Ql (S) Non-Reactive Nonreactive [facility] Comment on above: Biotin interference may cause falsely decreased results. Patients taking a Biotin dose of up to 5 mg/day should refrain from taking Biotin for 24 hours before sample collection. Providers may contact their local laboratory for further information. HBV core IgM Ql (S) Non-Reactive Nonreactive [facility] Comment on above: Results from patient s taking biotin supplements or receiving high-dose biotin therapy should be interpreted with caution due to possible interference with this test. Providers may contact their local laboratory for further information. HBV surface Ag IA Ql Non-Reactive Nonreactive [facility] Comment on above: Biotin interference may cause falsely decreased results. Patients taking a Biotin dose of up to 5 mg/day should refrain from taking Biotin for 24 hours before sample collection. Providers may contact their local laboratory for further information. HCV Ab Ql (S) Non-Reactive Nonreactive [facility] Comment on above: Results from patient s taking biotin supplements or receiving high-dose biotin therapy should be interpreted with caution due to possible interference with this test. Providers may contact their local laboratory for further information. Interpretation and review of laboratory results Normal [facility] HAV IgM Ql (S) Non-Reactive Normal Nonreactive [facility] Comment on above: Result Comment: Biot in interference may cause falsely decreased results. Patients taking a Biotin dose of up to 5 mg/day should refrain from taking Biotin for 24 hours before sample collection. Providers may contact their local laboratory for further information. Performed By: #### 9 4149-2 #### SRAVANI LOVE ([id number]) [facility] [address] [place] [address] HBV core IgM Ql (S) Non-Reactive Normal Nonreactive [facility] Comment on above: Result Comment: Resu lts from patients taking biotin supplements or receiving high-dose biotin therapy should be interpreted with caution due to possible interference with this test. Providers may contact their local laboratory for further information. Performed By: #### 9 4149-2 #### SRAVANI LOVE ([id number]) [facility] [address] [place] [address] HBV surface Ag IA Ql Non-Reactive Normal Nonreactive [facility] Comment on above: Result Comment: Biot in interference may cause falsely decreased results. Patients taking a Biotin dose of up to 5 mg/day should refrain from taking Biotin for 24 hours before sample collection. Providers may contact their local laboratory for further information. Performed By: #### 9 4149-2 #### SRAVANI LOVE ([id number]) [facility] [place] [address] HCV Ab Ql (S) Non-Reactive Normal Nonreactive [facility] Comment on above: Result Comment: Resu lts from patients taking biotin supplements or receiving high-dose biotin therapy should be interpreted with caution due to possible interference with this test. Providers may contact their local laboratory for further information. Performed By: #### 9 4149-2 #### LASSITER KATE ([id number]) [facility] [address] [place] [address] Comprehensive metabolic 2000 panelon 10-20-2023 Albumin BCP dye [Mass/Vol] 2.7 g/dL Low 3.4 - 5.0 g/dL [facility] ALP [Catalytic activity/Vol] 72 U/L 33 - 110 U/L [facility] ALT With P-5'-P [Catalytic activity/Vol] 207 U/L High 7 - 45 U/L [facility] Comment on above: Patients treated wit h Sulfasalazine may generate falsely decreased results for ALT. Anion gap [Moles/Vol] 9 mmol/L Low 10 - 2 0 mmol/L [facility] AST With P-5'-P [Catalytic activity/Vol] 180 U/L High 9 - 39 U/L [facility] Bilirubin [Mass/Vol] 0.3 mg/dL 0.0 - 1 .2 mg/dL [facility] Calcium [Mass/Vol] 8.2 mg/dL Low 8.6 - 10. 3 mg/dL [facility] Chloride [Moles/Vol] 105 mmol/L 98 - 10 7 mmol/L [facility] CO2 [Moles/Vol] 25 mmol/L 21 - 32 mmol/L [facility] Creatinine [Mass/Vol] 0.39 mg/dL Low 0.50 - 1.05 mg/dL [facility] eGFR - PINF [facility] Comment on above: Calculations of bella mated GFR are performed using the 2020 CKD-EPI Study Refit equation without the race variable for the IDMS-Traceable creatinine methods. https://jasn.asnjournals.org/content/early/ASN.2020 814151 Glucose [Mass/Vol] 95 mg/dL 74 - 99 mg/dL [facility] Potassium [Moles/Vol] 3.8 mmol/L 3.5 - 5.3 mmol/L [facility] Protein [Mass/Vol] 5.4 g/dL Low 6.4 - 8.2 g/dL [facility] Sodium [Moles/Vol] 135 mmol/L Low 136 - 145 mmol/L [facility] Urea nitrogen [Mass/Vol] 8 mg/dL 6 - 23 mg/dL [facility] Albumin BCP dye [Mass/Vol] 2.7 g/dL Low 3.4-5.0 [facility] Comment on above: Performed By: #### 5 7021-8 #### SRAVANI LOVE ([id number]) [facility] [address] [place] [address] 69602 ALP [Catalytic activity/Vol] 72 U/L Normal 33-110 [facility] Comment on above: Performed By: #### 5 7021-8 #### SRAVANI LOVE ([id number]) [facility] [address] [place] [address] 41633 ALT With P-5'-P [Catalytic activity/Vol] 207 U/L High 7-45 [facility] Comment on above: Result Comment: Glendy ents treated with Sulfasalazine may generate falsely decreased results for ALT. Performed By: #### 5 7021-8 #### SRAVANI LOVE ([id number]) [facility] [place] [address] Anion gap [Moles/Vol] 9 mmol/L Low 10-20 [facility] Comment on above: Performed By: #### 5 7021-8 #### SRAVANI LOVE ([id number]) [facility] [address] [place] [address] 79195 AST With P-5'-P [Catalytic activity/Vol] 180 U/L High 9-39 [facility] Comment on above: Performed By: #### 5 7021-8 #### SRAVANI LOVE ([id number]) [facility] [address] [place] [address] 48170 Bilirubin [Mass/Vol] 0.3 mg/dL Normal 0.0-1.2 [facility] Comment on above: Performed By: #### 5 7021-8 #### SRAVANI LOVE ([id number]) [facility] [address] [place] [address] 63276 Calcium [Mass/Vol] 8.2 mg/dL Low 8.6-10.3 [facility] Comment on above: Performed By: #### 5 7021-8 #### SRAVANI LOVE ([id number]) [facility] [place] [address] Chloride [Moles/Vol] 105 mmol/L Normal 98-107 [facility] Comment on above: Performed By: #### 5 7021-8 #### SRAVANI LOVE ([id number]) [facility] [address] [place] [address] 86475 CO2 [Moles/Vol] 25 mmol/L Normal 21-32 [facility] Comment on above: Performed By: #### 5 7021-8 #### SRAVANI LOVE ([id number]) [facility] [address] [place] [address] 61360 Creatinine [Mass/Vol] 0.39 mg/dL Low 0.50-1.05 [facility] Comment on above: Performed By: #### 5 7021-8 #### SRAVANI LOVE ([id number]) [facility] [address] [place] [address] 95441 GFR/1.73 sq M.predicted MDRD (S/P/Bld) [Vol rate/Area] mL/min/{1.73_m2} Normal >60 [facility] Comment on above: Result Comment: Calc ulations of estimated GFR are performed using the 2020 CKD-EPI Study Refit equation without the race variable for the IDMS-Traceable creatinine methods. https://jasn.asnjournals.org/content//ASN.2020 149452 Performed By: #### 5 7021-8 #### SRAVANI LOVE ([id number]) [facility] [place] [address] Glucose [Mass/Vol] 95 mg/dL Normal 74-99 [facility] Comment on above: Performed By: #### 5 7021-8 #### SRAVANI LOVE ([id number]) [facility] [address] [place] [address] 59058 Potassium [Moles/Vol] 3.8 mmol/L Normal 3.5-5.3 [facility] Comment on above: Performed By: #### 5 7021-8 #### SRAVANI LOVE ([id number]) [facility] [address] [place] [address] 86267 Protein [Mass/Vol] 5.4 g/dL Low 6.4-8.2 [facility] Comment on above: Performed By: #### 5 7021-8 #### SRAVANI LOVE ([id number]) [facility] [address] [place] [address] 83422 Sodium [Moles/Vol] 135 mmol/L Low 136-145 [facility] Comment on above: Performed By: #### 5 7021-8 #### SRAVANI LOVE ([id number]) [facility] [address] [place] [address] 49770 Urea nitrogen [Mass/Vol] 8 mg/dL Normal 6-23 [facility] Comment on above: Performed By: #### 5 7021-8 #### SRAVANI LOVE ([id number]) [facility] [address] [place] [address] 62043 Creatine Kinaseon 10-20-2023 CK [Catalytic activity/Vol] 3381 U/L High 0 - 215 U/L [facility] Creatine kinaseon 10-20-2023 CK [Catalytic activity/Vol] 3381 U/L High 0-215 [facility] Comment on above: Performed By: #### 5 7021-8 #### SRAVANI LOVE ([id number]) [facility] [address] [place] [address] 81676 Ferritinon 10-20-2023 Ferritin [Mass/Vol] 168 ng/mL High 8 - 150 ng/mL [facility] Ferritin [Mass/Vol] 168 ng/mL High 8-150 [facility] Comment on above: Performed By: #### 9 4149-2 #### SRAVANI LOVE ([id number]) [facility] [address] [place] [address] 28163 Ferritin [Mass/Vol]on 2023 Interpretation and review of laboratory results Abnormal [facility] HIV 1+2 Ab+HIV1 p24 Agon HIV 1+2 Ab+HIV1 p24 Ag IA Ql Non-Reactive Normal Nonreactive [facility] Comment on above: Order Comment: HIV A g/Ab screen is performed using the Siemens [employer] HIV Ag/Ab Combo assay which detects the presence of HIV p24 antigen as well as antibodies to HIV-1 (Group M and O) and HIV-2.No laboratory evidence of HIV infection. If acute HIV infection is suspected, consider testing for HIV RNA by PCR (viral load). Performed By: #### 9 4149-2 #### SRAVANI LOVE ([id number]) [facility] [address] [place] [address] HIV 1+2 Ab+HIV1 p24 Ag IA Ql on 10-20-2023 Interpretation and review of laboratory results Normal [facility] HIV Ag/Ab screen is performed using the [employer] HIV Ag/Ab Combo assay which detects the presence of HIV p24 antigen as well as antibodies to HIV-1 (Group M and O) and HIV-2. No laboratory evidence of HIV infection. If acute HIV infection is suspected, consider testing for HIV RNA by PCR (viral load). [facility] HIV 1/2 Antigen/Antibody Scr een with Reflex to Confirmationon 10-20-2023 HIV 1+2 Ab+HIV1 p24 Ag IA Ql Non-Reactive Nonreactive [facility] Lavender Topon 10-20-2023 Extra Tube Hold for add-ons. [facility] Comment on above: Auto resulted. [facility] No Panel Informationon 10-19 Interpretation and review of laboratory results Abnormal [facility] Nuclear Abon 10-20-2023 Nuclear Ab Hep2 substrate Ql (S) Negative Normal Negative [facility] Comment on above: Result Comment: The Antinuclear Antibody (LESTER) test was performed using indirect immunofluorescence assay with HEp-2 cells slide. Performed By: #### 2 [id number] #### LASSITER KATE ([id number]) [facility] [address] [place] [address] Nuclear Ab Hep2 substrate Ql (S)Ordered By: Debby Elizabeth on 10-20-2023 Cytoplasmic Pattern Present [facility] TRANSTHORACIC ECHO (TTE) COM PLETEon 10-20-2023 TRANSTHORACIC ECHO (TTE) [place] [address] [phone], TRANSTHORACIC ECHOCARDIOGRAM REPORT Patient Name: SURAJ Delia HAWK Reading Physician: [id number] Stephon Olivares MD Study Date: 10/20/2023 Ordering Provider: [id number] JUSTIN OLIVARES MRN/PID: [id number] Fellow: Nurse: Patsy Norton RN Date of /Age: 7 1975 / 48 years Lumite Injector: FELICIA Johnson RVT Gender: F Additional Staff: Height: 154.94 cm Admit Date: 10/17/2023 Weight: 105.24 kg Admission Status: Inpatient - Routine BSA / BMI: 2.01 m2 / 43.84 kg/m2 Department Location: [address] Blood Pressure: 135 /71 mmHg Study Type: TRANSTHORACIC ECHO (TTE) COMPLETE Diagnosis/ICD: Elevated Troponin-R79.89 Indication: Elevated Troponin CPT Codes: Echo Complete w Full Doppler-53829 Patient History: Pertinent History: No previous echo. Study Detail: The following Echo studies were performed: 2D, M-Mode, Doppler and color flow. Definity used as a contrast agent for endocardial border definition. Total contrast used for this procedure was 2 mL via IV push. A bubble study was not performed. The patient was awake. PHYSICIAN INTERPRETATION: Left Ventricle: Left ventricular ejection fraction is normal, by visual estimate at 60%. There are no regional wall motion abnormalities. The left ventricular cavity size is normal. There is mild concentric left ventricular hypertrophy. Spectral Doppler shows a normal pattern of left ventricular diastolic filling. Left Atrium: The left atrium is normal in size. Right Ventricle: The right ventricle is mildly enlarged. There is normal right ventricular global systolic function. Right Atrium: The right atrium is normal in size. Aortic Valve: The aortic valve is probably trileaflet. The aortic valve dimensionless index is 0.71. There is no evidence of aortic valve regurgitation. The peak instantaneous gradient of the aortic valve is 16.8 mmHg. The mean gradient of the aortic valve is 9.0 mmHg. Mitral Valve: The mitral valve is normal in structure. There is no evidence of mitral valve regurgitation. Tricuspid Valve: The tricuspid valve was not well visualized. There is trace tricuspid regurgitation. Pulmonic Valve: The pulmonic valve is not well visualized. There is no indication of pulmonic valve regurgitation. Pericardium: There is no pericardial effusion noted. Aorta: The aortic root is normal. Systemic Veins: The inferior vena cava appears to be of normal size. There is IVC inspiratory collapse greater than 50%. CONCLUSIONS: 1. Left ventricular ejection fraction is normal, by visual estimate at 60%. 2. There is normal right ventricular global systolic function. 3. Mildly enlarged right ventricle. QUANTITATIVE DATA SUMMARY: 2D MEASUREMENTS: Normal Ranges: Ao Root d: 2.70 cm (2.0-3.7cm) LAs: 3.00 cm (2.7-4.0cm) IVSd: 1.23 cm (0.6-1.1cm) LVPWd: 1.23 cm (0.6-1.1cm) LVIDd: 3.97 cm (3.9-5.9cm) LVIDs: 2.51 cm LV Mass Index: 84.4 g/m2 LV % FS 36.8 % LA VOLUME: Normal Ranges: LA Vol A4C: 15.0 ml (22+/-6mL/m2) LA Vol A2C: 19.6 ml LA Vol BP: 19.0 ml LA Vol Index A4C: 7.5ml/m2 LA Vol Index A2C: 9.8 ml/m2 LA Vol Index BP: 9.4 ml/m2 LA Area A4C: 9.2 cm2 LA Area A2C: 9.5 cm2 LA Major Hettick A4C: 4.8 cm LA Major Hettick A2C: 3.9 cm LA Volume Index: 9.5 ml/m2 LA Vol A4C: 15.1 ml LA Vol A2C: 19.1 ml LA Vol Index BSA: 8.5 ml/m2 M-MODE MEASUREMENTS: Normal Ranges: AoV Exc: 2.00 cm (1.5-2.5cm) AORTA MEASUREMENTS: Normal Ranges: AoV Exc: 2.00 cm (1.5-2.5cm) LV SYSTOLIC FUNCTION BY 2D PLANIMETRY (MOD): Normal Ranges: EF-A4C View: 70 % (>=55%) EF-A2C View: 73 % EF-Biplane: 71 % EF-Visual: 60 % LV EF Reported: 60 % LV DIASTOLIC FUNCTION: Normal Ranges: MV Peak E: 1.17 m/s (0.7-1.2 m/s) MV Peak A: 1.10 m/s (0.42-0.7 m/s) E/A Ratio: 1.06 (1.0-2.2) MV e' 0.104 m/s (>8.0) MV lateral e' 0.11 m/s MV medial e' 0.10 m/s E/e' Ratio: 11.30 (<8.0) MITRAL VALVE: Normal Ranges: MV DT: 148 msec (150-240msec) AORTIC VALVE: Normal Ranges: AoV Vmax: 2.05 m/s (<=1.7m/s) AoV Peak P.8 mmHg (<20mmHg) AoV Mean P.0 mmHg (1.7-11.5mmHg) LVOT Max Zurdo: 1.48 m/s (<=1.1m/s) AoV VTI: 37.40 cm (18-25cm) LVOT VTI: 26.60 cm LVOT Diameter: 1.70 cm (1.8-2.4cm) AoV Area, VTI: 1.61 cm2 (2.5-5.5cm2) AoV Area,Vmax: 1.64 cm2 (2.5-4.5cm2) AoV Dimensionless Index: 0.71 RIGHT VENTRICLE: RV Basal 4.12 cm RV Mid 3.51 cm RV Major 6.1 cm TAPSE: 22.6 mm PULMONIC VALVE: Normal Ranges: PV Accel Time: 95 msec (>120ms) PV Max Zurdo: 1.4 m/s (0.6-0.9m/s) PV Max P.6 mmHg [id number] Stephon Olivares MD Electronically signed on 10/20/2023 at 9:58:47 AM Final Normal [facility] Tropinin I.cardiac panel Hig h sensitivity methodon 10-20-2023 Interpretation and review of laboratory results Abnormal [facility] Less than 99th percentile of normal range cutoff- Female and children under 18 years old <14 ng/L; Male <21 ng/L: Negative Repeat testing should be performed if clinically indicated. Female and children under 18 years old 14-50 ng/L; Male 21-50 ng/L: Consistent with possible cardiac damage and possible increased clinical risk. Serial measurements may help to assess extent of myocardial damage. >50 ng/L: Consistent with cardiac damage, increased clinical risk and myocardial infarction. Serial measurements may help assess extent of myocardial damage. NOTE: Children less than 1 year old may have higher baseline troponin levels and results should be interpreted in conjunction with the overall clinical context. NOTE: Troponin I testing is performed using a different testing methodology at [facility] [place] [facility] than at other [facility]. Direct result comparisons should only be made within the same method. [facility] Troponin I, High Sensitivity on 10-20-2023 Tropinin I.cardiac panel High sensitivity method 409 ng/L Critically high 0 - 13 ng/L [facility] Troponin I.cardiac panelon 0 10-20-2023 Tropinin I.cardiac panel High sensitivity method 409 ng/L Critically high 0-13 [facility] Comment on above: Order Comment: Less than 99th percentile of normal range cutoff-Female and children under 18 years old <14 ng/L; Male <21 ng/L: NegativeRepeat testing should be performed if clinically indicated.Female and children under 18 years old 14-50 ng/L; Male 21-50 ng/L:Consistent with possible cardiac damage and possible increased clinicalrisk. Serial measurements may help to assess extent of myocardial damage.>50 ng/L: Consistent with cardiac damage, increased clinical risk andmyocardial infarction. Serial measurements may help assess extent ofmyocardial damage.NOTE: Children less than 1 year old may have higher baseline troponinlevels and results should be interpreted in conjunction with the overallclinical context.NOTE: Troponin I testing is performed using a differenttesting methodology at [facility] [place] [facility] than at [facility]. Direct result comparisons should onlybe made within the same method. Performed By: #### 5 7021-8 #### LASSITER KATE ([id number]) [facility] [address] [place] [address] US ABDOMEN LIMITED LIVERon 0 10-20-2023 US ABDOMEN LIMITED LIVER Interpreted By: David De Jesus, STUDY: US ABDOMEN LIMITED LIVER; 8:32 am INDICATION: Signs/Symptoms:Elevated LFT. COMPARISON: None. ACCESSION NUMBER(S): [id number] ORDERING CLINICIAN: ARABELLA EDWARDS TECHNIQUE: Limited abdominal ultrasound of the right upper quadrant was performed utilizing henley scale imaging. FINDINGS: Liver: There is diffuse increased echogenicity of the hepatic parenchyma which can be seen with fatty infiltration or cirrhosis of the liver. Gallbladder: Gallbladder is filled with stones with resultant acoustic shadowing. Sonographic Lynch's sign: Negative Pancreas: Pancreas is predominantly obscured by bowel gas. CBD: 0.33 cm Right Kidney: No pathologic findings are noted. IMPRESSION: 1. Probable fatty infiltration of the liver. 2. Cholelithiasis. MACRO: None. Signed by: David De Jesus 10/21/2023 8:34 AM Dictation workstation: [id number] [facility] US Heart TransthoracicOrdere d By: Stephon Olivares on 10-20-2023 Aortic Valve Area by Continuity of Peak Velocity 1.64 cm2 [facility] Work Phone: [phone] Aortic Valve Area by Continuity of VTI 1.61 cm2 [facility] Work Phone: [phone] AV mn grad 9.0 mmHg [facility] Work Phone: [phone] AV pk grad 16.8 mmHg [facility] Work Phone: 39 AV pk zurdo 2.05 m/s [facility] Work Phone: [phone] LA vol index A/L 9.4 ml/m2 [facility] Work Phone: [phone] LV A4C EF 69.8 [facility] Work Phone: [phone] LV Biplane EF 71 % [facility] Work Phone: LV EF 60 % [facility] Work Phone: [phone] LVIDd 3.97 cm [facility] Work Phone: [phone] LVOT diam 1.70 cm [facility] Work Phone: MV E/A ratio 1.06 [facility] Work Phone: [phone] Tricuspid annular plane systolic excursion 2.3 cm [facility] Work Phone: [facility] Work Phone: [place] [address] [phone], TRANSTHORACIC ECHOCARDIOGRAM REPORT Patient Name: SURAJ Lin KENN Reading Physician: [id number] Stephon Olivares MD Study Date: 10/20/2023 Ordering Provider: [id number] JUSTIN OLIVARES MRN/PID: [id number] Fellow: Nurse: Patsy Norton RN Date of /Age: 7 1975 / 48 years Lumite Injector: FELICIA Johnson RVT Gender: F Additional Staff: Height: 154.94 cm Admit Date: 10/17/2023 Weight: 105.24 kg Admission Status: Inpatient - Routine BSA / BMI: 2.01 m2 / 43.84 kg/m2 Department Location: [address] Blood Pressure: 135 /71 mmHg Study Type: TRANSTHORACIC ECHO (TTE) COMPLETE Diagnosis/ICD: Elevated Troponin-R79.89 Indication: Elevated Troponin CPT Codes: Echo Complete w Full Doppler-91724 Patient History: Pertinent History: No previous echo. Study Detail: The following Echo studies were performed: 2D, M-Mode, Doppler and color flow. Definity used as a contrast agent for endocardial border definition. Total contrast used for this procedure was 2 mL via IV push. A bubble study was not performed. The patient was awake. PHYSICIAN INTERPRETATION: Left Ventricle: Left ventricular ejection fraction is normal, by visual estimate at 60%. There are no regional wall motion abnormalities. The left ventricular cavity size is normal. There is mild concentric left ventricular hypertrophy. Spectral Doppler shows a normal pattern of left ventricular diastolic filling. Left Atrium: The left atrium is normal in size. Right Ventricle: The right ventricle is mildly enlarged. There is normal right ventricular global systolic function. Right Atrium: The right atrium is normal in size. Aortic Valve: The aortic valve is probably trileaflet. The aortic valve dimensionless index is 0.71. There is no evidence of aortic valve regurgitation. The peak instantaneous gradient of the aortic valve is 16.8 mmHg. The mean gradient of the aortic valve is 9.0 mmHg. Mitral Valve: The mitral valve is normal in structure. There is no evidence of mitral valve regurgitation. Tricuspid Valve: The tricuspid valve was not well visualized. There is trace tricuspid regurgitation. Pulmonic Valve: The pulmonic valve is not well visualized. There is no indication of pulmonic valve regurgitation. Pericardium: There is no pericardial effusion noted. Aorta: The aortic root is normal. Systemic Veins: The inferior vena cava appears to be of normal size. There is IVC inspiratory collapse greater than 50%. CONCLUSIONS: 1. Left ventricular ejection fraction is normal, by visual estimate at 60%. 2. There is normal right ventricular global systolic function. 3. Mildly enlarged right ventricle. QUANTITATIVE DATA SUMMARY: 2D MEASUREMENTS: Normal Ranges: Ao Root d: 2.70 cm (2.0-3.7cm) LAs: 3.00 cm (2.7-4.0cm) IVSd: 1.23 cm (0.6-1.1cm) LVPWd: 1.23 cm (0.6-1.1cm) LVIDd: 3.97 cm (3.9-5.9cm) LVIDs: 2.51 cm LV Mass Index: 84.4 g/m2 LV % FS 36.8 % LA VOLUME: Normal Ranges: LA Vol A4C: 15.0 ml (22+/-6mL/m2) LA Vol A2C: 19.6 ml LA Vol BP: 19.0 ml LA Vol Index A4C: 7.5ml/m2 LA Vol Index A2C: 9.8 ml/m2 LA Vol Index BP: 9.4 ml/m2 LA Area A4C: 9.2 cm2 LA Area A2C: 9.5 cm2 LA Major Hettick A4C: 4.8 cm LA Major Hettick A2C: 3.9 cm LA Volume Index: 9.5 ml/m2 LA Vol A4C: 15.1 ml LA Vol A2C: 19.1 ml LA Vol Index BSA: 8.5 ml/m2 M-MODE MEASUREMENTS: Normal Ranges: AoV Exc: 2.00 cm (1.5-2.5cm) AORTA MEASUREMENTS: Normal Ranges: AoV Exc: 2.00 cm (1.5-2.5cm) LV SYSTOLIC FUNCTION BY 2D PLANIMETRY (MOD): Normal Ranges: EF-A4C View: 70 % (>=55%) EF-A2C View: 73 % EF-Biplane: 71 % EF-Visual: 60 % LV EF Reported: 60 % LV DIASTOLIC FUNCTION: Normal Ranges: MV Peak E: 1.17 m/s (0.7-1.2 m/s) MV Peak A: 1.10 m/s (0.42-0.7 m/s) E/A Ratio: 1.06 (1.0-2.2) MV e' 0.104 m/s (>8.0) MV lateral e' 0.11 m/s MV medial e' 0.10 m/s E/e' Ratio: 11.30 (<8.0) MITRAL VALVE: Normal Ranges: MV DT: 148 mse (more content not included)... Stephon Dailey MD - 10/20/2023 [place] [address] [phone], TRANSTHORACIC ECHOCARDIOGRAM REPORT Patient Name: SURAJ Gonzalez Physician: [id number] Stephon Olivares MD Study Date: 10/20/2023 Ordering Provider: [id number] JUSTIN OLIVARES MRN/PID: [id number] Fellow: Nurse: Patsy Norton RN Date of /Age: 7 1975 / 48 years Lumite Injector: FELICIA Johnson RVT Gender: F Additional Staff: Height: 154.94 cm Admit Date: 10/17/2023 Weight: 105.24 kg Admission Status: Inpatient - Routine BSA / BMI: 2.01 m2 / 43.84 kg/m2 Department Location: [address] Blood Pressure: 135 /71 mmHg Study Type: TRANSTHORACIC ECHO (TTE) COMPLETE Diagnosis/ICD: Elevated Troponin-R79.89 Indication: Elevated Troponin CPT Codes: Echo Complete w Full Doppler-25025 Patient History: Pertinent History: No previous echo. Study Detail: The following Echo studies were performed: 2D, M-Mode, Doppler and color flow. Definity used as a contrast agent for endocardial border definition. Total contrast used for this procedure was 2 mL via IV push. A bubble study was not performed. The patient was awake. PHYSICIAN INTERPRETATION: Left Ventricle: Left ventricular ejection fraction is normal, by visual estimate at 60%. There are no regional wall motion abnormalities. The left ventricular cavity size is normal. There is mild concentric left ventricular hypertrophy. Spectral Doppler shows a normal pattern of left ventricular diastolic filling. Left Atrium: The left atrium is normal in size. Right Ventricle: The right ventricle is mildly enlarged. There is normal right ventricular global systolic function. Right Atrium: The right atrium is normal in size. Aortic Valve: The aortic valve is probably trileaflet. The aortic valve dimensionless index is 0.71. There is no evidence of aortic valve regurgitation. The peak instantaneous gradient of the aortic valve is 16.8 mmHg. The mean gradient of the aortic valve is 9.0 mmHg. Mitral Valve: The mitral valve is normal in structure. There is no evidence of mitral valve regurgitation. Tricuspid Valve: The tricuspid valve was not well visualized. There is trace tricuspid regurgitation. Pulmonic Valve: The pulmonic valve is not well visualized. There is no indication of pulmonic valve regurgitation. Pericardium: There is no pericardial effusion noted. Aorta: The aortic root is normal. Systemic Veins: The inferior vena cava appears to be of normal size. There is IVC inspiratory collapse greater than 50%. CONCLUSIONS: 1. Left ventricular ejection fraction is normal, by visual estimate at 60%. 2. There is normal right ventricular global systolic function. 3. Mildly enlarged right ventricle. QUANTITATIVE DATA SUMMARY: 2D MEASUREMENTS: Normal Ranges: Ao Root d: 2.70 cm (2.0-3.7cm) LAs: 3.00 cm (2.7-4.0cm) IVSd: 1.23 cm (0.6-1.1cm) LVPWd: 1.23 cm (0.6-1.1cm) LVIDd: 3.97 cm (3.9-5.9cm) LVIDs: 2.51 cm LV Mass Index: 84.4 g/m2 LV % FS 36.8 % LA VOLUME: Normal Ranges: LA Vol A4C: 15.0 ml (22+/-6mL/m2) LA Vol A2C: 19.6 ml LA Vol BP: 19.0 ml LA Vol Index A4C: 7.5ml/m2 LA Vol Index A2C: 9.8 ml/m2 LA Vol Index BP: 9.4 ml/m2 LA Area A4C: 9.2 cm2 LA Area A2C: 9.5 cm2 LA Major Hettick A4C: 4.8 cm LA Major Hettick A2C: 3.9 cm LA Volume Index: 9.5 ml/m2 LA Vol A4C: 15.1 ml LA Vol A2C: 19.1 ml LA Vol Index BSA: 8.5 ml/m2 M-MODE MEASUREMENTS: Normal Ranges: AoV Exc: 2.00 cm (1.5-2.5cm) AORTA MEASUREMENTS: Normal Ranges: AoV Exc: 2.00 cm (1.5-2.5cm) LV SYSTOLIC FUNCTION BY 2D PLANIMETRY (MOD): Normal Ranges: EF-A4C View: 70 % (>=55%) EF-A2C View: 73 % EF-Biplane: 71 % EF-Visual: 60 % LV EF Reported: 60 % LV DIASTOLIC FUNCTION: Normal Ranges: MV Peak E: 1.17 m/s (0.7-1.2 m/s) MV Peak A: 1.10 m/s (0.42-0.7 m/s) E/A Ratio: 1.06 (1.0-2.2) MV e' 0.104 m/s (>8.0) MV lateral e' 0.11 m/s MV medial e' 0.10 m/s E/e' Ratio: 11.30 (<8.0) MITRAL VALVE: Normal Ranges: MV DT: 148 msec (150-240msec) AORTIC VALVE: Normal Ranges: AoV Vmax: 2.05 m/s (<=1.7m/s) AoV Peak P.8 mmHg (<20mmHg) AoV Mean P.0 mmHg (1.7-11.5mmHg) LVOT Max Zurdo: 1.48 m/s (<=1.1m/s) AoV VTI: 37.40 cm (18-25cm) LVOT VTI: 26.60 cm LVOT Diameter: 1.70 cm (1.8-2.4cm) AoV Area, VTI: 1.61 cm2 (2.5-5.5cm2) AoV Area,Vmax: 1.64 cm2 (2.5-4.5cm2) AoV Dimensionless Index: 0.71 RIGHT VENTRICLE: RV Basal 4.12 cm RV Mid 3.51 cm RV Major 6.1 cm TAPSE: 22.6 mm PULMONIC VALVE: Normal Ranges: PV Accel Time: 95 msec (>120ms) PV Max Zurdo: 1.4 m/s (0.6-0.9m/s) PV Max P.6 mmHg [id number] Stephon Olivares MD Electronically signed on 10/20/2023 at 9:58:47 AM Final [facility] Work Phone: Liver limitedon Radiology Study observation (narrative) [facility] Work Phone: CBC W Auto Differential pane l (Bld)on 10-19-2023 Basophils (Bld) [#/Vol] 0.01 10*3/uL [facility] Basophils/100 WBC (Bld) 0.1 % 0.0 - 2.0 % [facility] Eosinophils (Bld) [#/Vol] 0.64 10*3/uL [facility] Eosinophils/100 WBC (Bld) 9.3 % 0.0 - 6.0 % [facility] Erythrocyte distribution width (RBC) [Ratio] 14.6 % High 11.5 - 14.5 % [facility] Hematocrit (Bld) [Volume fraction] 40.2 % 36.0 - 46.0 % [facility] Hemoglobin (Bld) [Mass/Vol] 12.9 g/dL 12.0 - 16.0 g/dL [facility] Immature granulocytes (Bld) [#/Vol] 0.07 10*3/uL [facility] Immature granulocytes/100 WBC (Bld) 1.0 % High 0.0 - 0.9 % [facility] Comment on above: Immature Granulocyte Count (IG) includes promyelocytes, myelocytes and metamyelocytes but does not include bands. Percent differential counts (%) should be interpreted in the context of the absolute cell counts (cells/UL). Interpretation and review of laboratory results Abnormal [facility] Lymphocytes (Bld) [#/Vol] 1.12 10*3/uL Low [facility] Lymphocytes/100 WBC (Bld) 16.3 % 13.0 - 44.0 % [facility] MCH (RBC) [Entitic mass] 27.0 pg 26.0 - 34.0 pg [facility] MCHC (RBC) [Mass/Vol] 32.1 g/dL 32.0 - 36.0 g/dL [facility] MCV (RBC) [Entitic vol] 84 fL 80 - 100 fL [facility] Monocytes (Bld) [#/Vol] 0.21 10*3/uL [facility] Monocytes/100 WBC (Bld) 3.1 % 2.0 - 10.0 % [facility] Neutrophils (Bld) [#/Vol] 4.82 10*3/uL [facility] Comment on above: Percent differential counts (%) should be interpreted in the context of the absolute cell counts (cells/uL). Neutrophils/100 WBC (Bld) 70.2 % 40.0 - 80.0 % [facility] Nucleated RBC/100 WBC (Bld) [Ratio] 0.0 % [facility] Platelets (Bld) [#/Vol] 180 10*3/uL [facility] RBC (Bld) [#/Vol] 4.77 10*6/uL [facility] WBC (Bld) [#/Vol] 6.9 10*3/uL [facility] Basophils (Bld) [#/Vol] 0.01 x10*3/uL Normal 0.00-0.10 [facility] Comment on above: Performed By: #### 5 7021-8 #### LASSITER KATE ([id number]) [facility] [address] [place] [address] Basophils/100 WBC (Bld) 0.1 % Normal 0.0-2.0 [facility] Comment on above: Performed By: #### 5 7021-8 #### SRAVANI LOVE ([id number]) [facility] [address] [place] [phone] Eosinophils (Bld) [#/Vol] 0.64 x10*3/uL Normal 0.00-0.70 [facility] Comment on above: Performed By: #### 5 7021-8 #### SRAVANI LOVE ([id number]) [facility] [address] [place] [address] 71467 Eosinophils/100 WBC (Bld) 9.3 % Normal 0.0-6.0 [facility] Comment on above: Performed By: #### 5 7021-8 #### SRAVANI LOVE ([id number]) [facility] [address] [place] [address] Erythrocyte distribution width (RBC) [Ratio] 14.6 % High 11.5-14.5 [facility] Comment on above: Performed By: #### 7021-8 #### SRAVANI LOVE ([id number]) [facility] [address] [place] [address] Hematocrit (Bld) [Volume fraction] 40.2 % Normal 36.0-46.0 [facility] Comment on above: Performed By: #### 5 7021-8 #### SRAVANI LOVE ([id number]) [facility] [address] [place] [address] 42647 Hemoglobin (Bld) [Mass/Vol] 12.9 g/dL Normal 12.0-16.0 [facility] Comment on above: Performed By: #### 5 7021-8 #### SRAVANI LOVE ([id number]) [facility] [address] [place] [address]97 Immature granulocytes (Bld) [#/Vol] 0.07 x10*3/uL Normal 0.00-0.70 [facility] Comment on above: Performed By: #### 5 7021-8 #### SRAVANI LOVE ([id number]) [facility] [address] [place] [address] 77330 Immature granulocytes/100 WBC (Bld) 1.0 % High 0.0-0.9 [facility] Comment on above: Result Comment: Donna ture Granulocyte Count (IG) includes promyelocytes, myelocytes and metamyelocytes but does not include bands. Percent differential counts (%) should be interpreted in the context of the absolute cell counts (cells/UL). Performed By: #### 5 7021-8 #### SRAVANI LOVE ([id number]) [facility] [address] [place] [address] 71589 Lymphocytes (Bld) [#/Vol] 1.12 x10*3/uL Low 1.20-4.80 [facility] Comment on above: Performed By: #### 5 7021-8 #### SRAVANI LOVE ([id number]) [facility] [address] [place] [address] 45567 Lymphocytes/100 WBC (Bld) 16.3 % Normal 13.0-44.0 [facility] Comment on above: Performed By: #### 5 7021-8 #### SRAVANI LOVE ([id number]) [facility] [address] [place] [address] 72944 MCH (RBC) [Entitic mass] 27.0 pg Normal 26.0-34.0 [facility] Comment on above: Performed By: #### 5 7021-8 #### SRAVANI LOVE ([id number]) [facility] [address] [place] [address] 26743 MCHC (RBC) [Mass/Vol] 32.1 g/dL Normal 32.0-36.0 [facility] Comment on above: Performed By: #### 5 7021-8 #### SRAVANI LOVE ([id number]) [facility] [address] [place] [address] 18204 MCV (RBC) [Entitic vol] 84 fL Normal 80-100 [facility] Comment on above: Performed By: #### 5 7021-8 #### SRAVANI LOVE ([id number]) [facility] [address] [place] [address] 66728 Monocytes (Bld) [#/Vol] 0.21 x10*3/uL Normal 0.10-1.00 [facility] Comment on above: Performed By: #### 5 7021-8 #### SRAVANI LOVE ([id number]) [facility] [address] [place] [address] 88886 Monocytes/100 WBC (Bld) 3.1 % Normal 2.0-10.0 [facility] Comment on above: Performed By: #### 5 7021-8 #### SRAVANI LOVE ([id number]) [facility] [address] [place] [address] 95426 Neutrophils (Bld) [#/Vol] 4.82 x10*3/uL Normal 1.20-7.70 [facility] Comment on above: Result Comment: Perc ent differential counts (%) should be interpreted in the context of the absolute cell counts (cells/uL). Performed By: #### 5 7021-8 #### SRAVANI LOVE ([id number]) [facility] [address] [place] [address] 65633 Neutrophils/100 WBC (Bld) 70.2 % Normal 40.0-80.0 [facility] Comment on above: Performed By: #### 5 7021-8 #### SRAVANI LOVE ([id number]) [facility] [address] [place] [address] 11993 Nucleated RBC/100 WBC (Bld) [Ratio] 0.0 /100 WBCs Normal 0.0-0.0 [facility] Comment on above: Performed By: #### 5 7021-8 #### SRAVANI LOVE ([id number]) [facility] [address] [place] [address] 33314 Platelets (Bld) [#/Vol] 180 x10*3/uL Normal 150-450 [facility] Comment on above: Performed By: #### 5 7021-8 #### SRAVANI LOVE ([id number]) [facility] [address] [place] [address] RBC (Bld) [#/Vol] 4.77 x10*6/uL Normal 4.00-5.20 [facility] Comment on above: Performed By: #### 5 7021-8 #### SRAVANI LOVE ([id number]) [facility] [place] [id number] WBC (Bld) [#/Vol] 6.9 x10*3/uL Normal 4.4-11.3 [facility] Comment on above: Performed By: #### 5 7021-8 #### SRAVANI LOVE ([id number]) [facility] [address] [place] [address] Comprehensive metabolic 2000 panelon 10-19-2023 Albumin BCP dye [Mass/Vol] 2.6 g/dL Low 3.4 - 5.0 g/dL [facility] ALP [Catalytic activity/Vol] 76 U/L 33 - 110 U/L [facility] ALT With P-5'-P [Catalytic activity/Vol] 177 U/L High 7 - 45 U/L [facility] Comment on above: Patients treated wit h Sulfasalazine may generate falsely decreased results for ALT. Anion gap [Moles/Vol] 10 mmol/L 10 - 2 0 mmol/L [facility] AST With P-5'-P [Catalytic activity/Vol] 188 U/L High 9 - 39 U/L [facility] Bilirubin [Mass/Vol] 0.3 mg/dL 0.0 - 1 .2 mg/dL [facility] Calcium [Mass/Vol] 7.8 mg/dL Low 8.6 - 10. 3 mg/dL [facility] Chloride [Moles/Vol] 106 mmol/L 98 - 10 7 mmol/L [facility] CO2 [Moles/Vol] 21 mmol/L 21 - 32 mmol/L [facility] Creatinine [Mass/Vol] 0.47 mg/dL Low 0.50 - 1.05 mg/dL [facility] eGFR - PINF [facility] Comment on above: Calculations of bella mated GFR are performed using the 2020 CKD-EPI Study Refit equation without the race variable for the IDMS-Traceable creatinine methods. https://jasn.asnjournals.org/content/early/ASN.2020 546270 Glucose [Mass/Vol] 93 mg/dL 74 - 99 mg/dL [facility] Potassium [Moles/Vol] 3.9 mmol/L 3.5 - 5.3 mmol/L [facility] Protein [Mass/Vol] 5.0 g/dL Low 6.4 - 8.2 g/dL [facility] Sodium [Moles/Vol] 133 mmol/L Low 136 - 145 mmol/L [facility] Urea nitrogen [Mass/Vol] 10 mg/dL 6 - 23 mg/dL [facility] Albumin BCP dye [Mass/Vol] 2.6 g/dL Low 3.4-5.0 [facility] Comment on above: Performed By: #### 5 7021-8 #### SRAVANI LOVE ([id number]) [facility] [address] [place] [address] ALP [Catalytic activity/Vol] 76 U/L Normal 33-110 [facility] Comment on above: Performed By: #### 5 7021-8 #### SRAVANI LOVE ([id number]) [facility] [address] [place] [address] 53152 ALT With P-5'-P [Catalytic activity/Vol] 177 U/L High 7-45 [facility] Comment on above: Result Comment: Glendy ents treated with Sulfasalazine may generate falsely decreased results for ALT. Performed By: #### 5 7021-8 #### SRAVANI LOVE ([id number]) [facility] [address] [place] [address] 89509 Anion gap [Moles/Vol] 10 mmol/L Normal 10-20 [facility] Comment on above: Performed By: #### 5 7021-8 #### SRAVANI LOVE ([id number]) [facility] [address] [place] [address] AST With P-5'-P [Catalytic activity/Vol] 188 U/L High 9-39 [facility] Comment on above: Performed By: #### 5 7021-8 #### SRAVANI LOVE ([id number]) [facility] [address] [place] [address] 15540 Bilirubin [Mass/Vol] 0.3 mg/dL Normal 0.0-1.2 [facility] Comment on above: Performed By: #### 5 7021-8 #### SRAVANI LOVE ([id number]) [facility] [address] [place] [address] 87343 Calcium [Mass/Vol] 7.8 mg/dL Low 8.6-10.3 [facility] Comment on above: Performed By: #### 5 7021-8 #### SRAVANI LOVE ([id number]) [facility] [address] [place] [address] Chloride [Moles/Vol] 106 mmol/L Normal 98-107 [facility] Comment on above: Performed By: #### 5 7021-8 #### SRAVANI LOVE ([id number]) [facility] [place] [address] CO2 [Moles/Vol] 21 mmol/L Normal 21-32 [facility] Comment on above: Performed By: #### 5 7021-8 #### SRAVANI LOVE ([id number]) [facility] [address] [place] [address] 50760 Creatinine [Mass/Vol] 0.47 mg/dL Low 0.50-1.05 [facility] Comment on above: Performed By: #### 5 7021-8 #### SRAVANI LOVE ([id number]) [facility] [address] [place] [address] 24006 GFR/1.73 sq M.predicted MDRD (S/P/Bld) [Vol rate/Area] mL/min/{1.73_m2} Normal >60 [facility] Comment on above: Result Comment: Calc ulations of estimated GFR are performed using the 2020 CKD-EPI Study Refit equation without the race variable for the IDMS-Traceable creatinine methods. https://jasn.asnjournals.org/content/early/ASN.2020 556405 Performed By: #### 5 7021-8 #### SRAVANI LOVE ([id number]) [facility] [address] [place] [address] 07906 Glucose [Mass/Vol] 93 mg/dL Normal 74-99 [facility] Comment on above: Performed By: #### 5 7021-8 #### SRAVANI LOVE ([id number]) [facility] [address] [place] [address] 59727 Potassium [Moles/Vol] 3.9 mmol/L Normal 3.5-5.3 [facility] Comment on above: Performed By: #### 5 7021-8 #### SRAVANI LOVE ([id number]) [facility] [address] [place] [address] 45562 Protein [Mass/Vol] 5.0 g/dL Low 6.4-8.2 [facility] Comment on above: Performed By: #### 5 7021-8 #### SRAVANI LOVE ([id number]) [facility] [address] [place] [address] 77526 Sodium [Moles/Vol] 133 mmol/L Low 136-145 [facility] Comment on above: Performed By: #### 5 7021-8 #### SRAVANI LOVE ([id number]) [facility] [address] [place] [address] 86505 Urea nitrogen [Mass/Vol] 10 mg/dL Normal 6-23 [facility] Comment on above: Performed By: #### 5 7021-8 #### SRAVANI LOVE ([id number]) [facility] [address] [place] [address] Creatine Kinaseon 10-19-2023 CK [Catalytic activity/Vol] 4063 U/L High 0 - 215 U/L [facility] Creatine kinaseon 10-19-2023 CK [Catalytic activity/Vol] 4063 U/L High 0-215 [facility] Comment on above: Performed By: #### 5 7021-8 #### SRAVANI LOVE ([id number]) [facility] [address] [place] [address] D-dimer, Non VTEon 4 Fibrin D-dimer FEU (PPP) [Mass/Vol] 2627 High NINF [facility] Fibrin D-dimer FEUon 024 Fibrin D-dimer FEU (PPP) [Mass/Vol] 2627 ng/mL FEU High <=500 [facility] Comment on above: Order Comment: The D -Dimer assay is reported in ng/mL Fibrinogen Equivalent Units (FEU). The results of this assay should NOT be used for the exclusion of Deep Vein Thrombosis and/or Pulmonary Embolism. Performed By: #### 5 7021-8 #### SRAVANI LOVE ([id number]) [facility] [address] [place] [address] 15750 Fibrin D-dimer FEU (PPP) [Ma ss/Vol]on 10-19-2023 Interpretation and review of laboratory results Abnormal [facility] The D-Dimer assay is reported in ng/mL Fibrinogen Equivalent Units (FEU). The results of this assay should NOT be used for the exclusion of Deep Vein Thrombosis and/or Pulmonary Embolism. [facility] Immunoglobulin light chains. free panel (S)on 10-19-2023 Immunoglobulin light chains.kappa [Mass/Vol] 8.59 mg/dL High 0.33-1.94 [facility] Comment on above: Order Comment: Undet ected antigen excess is a rare event but cannot beexcluded. If these free light chain results do not agreewith other clinical or laboratory findings, or if thesample is from a patient that has previously demonstratedantigen excess, the result must be checked by retestingat a higher sample dilution. Results should always beinterpreted in conjunction with other laboratory testsand clinical evidence; any anomalies should be discussedwith the testing laboratory. Performed By: #### 9 4149-2 #### SRAVANI LOVE ([id number]) [facility] [address] [place] [address] Immunoglobulin light chains.kappa/Immunoglob ulin light chains.lambda (S) [Mass ratio] 1.68 High 0.26-1.65 [facility] Comment on above: Order Comment: Undet ected antigen excess is a rare event but cannot beexcluded. If these free light chain results do not agreewith other clinical or laboratory findings, or if thesample is from a patient that has previously demonstratedantigen excess, the result must be checked by retestingat a higher sample dilution. Results should always beinterpreted in conjunction with other laboratory testsand clinical evidence; any anomalies should be discussedwith the testing laboratory. Performed By: #### 9 4149-2 #### SRAVANI LOVE ([id number]) [facility] [address] [place] [address] Immunoglobulin light chains.lambda [Mass/Vol] 5.10 mg/dL High 0.57-2.63 [facility] Comment on above: Order Comment: Undet ected antigen excess is a rare event but cannot beexcluded. If these free light chain results do not agreewith other clinical or laboratory findings, or if thesample is from a patient that has previously demonstratedantigen excess, the result must be checked by retestingat a higher sample dilution. Results should always beinterpreted in conjunction with other laboratory testsand clinical evidence; any anomalies should be discussedwith the testing laboratory. Performed By: #### 9 4149-2 #### SRAVANI LOVE ([id number]) [facility] [address] [place] [address] Mitochondria Abon 10-19-2023 Mitochondria Ab IF Ql (S) Negative Normal Negative [facility] Comment on above: Performed By: #### 2 524-7 #### SRAVANI LOVE ([id number]) [facility] [address] [place] [address] 19809 No Panel Informationon 10-18 Interpretation and review of laboratory results Abnormal [facility] Nuclear Abon 10-19-2023 Nuclear Ab Hep2 substrate Ql (S) Negative Normal Negative [facility] Comment on above: Result Comment: The Antinuclear Antibody (LESTER) test was performed using indirect immunofluorescence assay with HEp-2 cells slide. Performed By: #### 2 524-7 #### SRAVANI LOVE ([id number]) [facility] [address] [place] [address] 33858 Proteinon 10-19-2023 Protein [Mass/Vol] 5.2 g/dL Low 6.4-8.2 [facility] Comment on above: Performed By: #### 5 7021-8 #### SRAVANI LOVE ([id number]) [facility] [address] [place] [address] 92618 Protein [Mass/Vol]on 024 Interpretation and review of laboratory results Abnormal [facility] Protein, Totalon 10-19-2023 Protein [Mass/Vol] 5.2 g/dL Low 6.4 - 8.2 g/dL [facility] SERUM PROTEIN ELECTROPHORESI S + IMMUNOFIXATIONon 10-19-2023 Albumin [Mass/Vol] 2.5 g/dL Low 3.4-5.0 [facility] Comment on above: Performed By: #### 2 524-7 #### SRAVANI LOVE ([id number]) [facility] [address] [place] [address] 78346 ALPHA 1 GLOBULIN 0.3 g/dL Normal 0.2-0.6 [facility] Comment on above: Performed By: #### 2 524-7 #### SRAVANI LOVE ([id number]) [facility] [address] [place] [address] 82376 ALPHA 2 GLOBULIN 0.6 g/dL Normal 0.4-1.1 [facility] Comment on above: Performed By: #### 2 524-7 #### SRAVANI LOVE ([id number]) [facility] [place] [address] BETA GLOBULIN 0.7 g/dL Normal 0.5-1.2 [facility] Comment on above: Performed By: #### 2 524-7 #### SRAVANI LOVE ([id number]) [facility] [address] [place] [address] 66711 GAMMA GLOBULIN 1.1 g/dL Normal 0.5-1.4 [facility] Comment on above: Performed By: #### 2 524-7 #### SRAVANI LOVE ([id number]) [facility] [address] [place] [address] IMMUNOFIXATION COMMENT Detected Normal [facility] Comment on above: Performed By: #### 2 524-7 #### SRAVANI LOVE ([id number]) [facility] [address] [place] [address] PATH REVIEW - SERUM IMMUNOFIXATION Reviewed and approved by MORA WEINSTEIN on 10/22/23 at 10:[address] [facility] Comment on above: Performed By: #### 2 524-7 #### SRAVANI LOVE ([id number]) [facility] [address] [place] [address] PATH REVIEW-SERUM PROTEIN ELECTROPHORESIS Reviewed and approved by MORA WEINSTEIN on 10/22/23 at 10:[address] [facility] Comment on above: Performed By: #### 2 524-7 #### SRAVANI LOVE ([id number]) [facility] [address] [place] [address] PROTEIN ELECTROPHORESIS COMMENT SEE COMMENT [facility] Comment on above: Result Comment: Hypo albuminemia. Performed By: #### 2 524-7 #### SRAVANI LOVE ([id number]) [facility] [address] [place] [address] SST TOPon 10-19-2023 Extra Tube Hold for add-ons. [facility] Comment on above: Auto resulted. [facility] Smooth muscle Abon Smooth muscle Ab IF Ql (S) Positive Abnormal Negative [facility] Comment on above: Performed By: #### 2 524-7 #### SRAVANI LOVE ([id number]) [facility] [address] [place] [address] C reactive proteinon 024 CRP [Mass/Vol] 6.70 mg/dL High <1.00 [facility] Comment on above: Performed By: #### 1 988-5 ####SRAVANI LOVE ([id number])[facility])[address] [place] [address] C-reactive proteinon 024 CRP [Mass/Vol] 6.70 mg/dL High NINF - 1.00 mg/dL [facility] CK [Catalytic activity/Vol]o n 10-18-2023 Interpretation and review of laboratory results Abnormal [facility] Interpretation and review of laboratory results Abnormal [facility] CRP [Mass/Vol]on 10-18-2023 Interpretation and review of laboratory results Abnormal [facility] Comprehensive metabolic 2000 panelon 10-18-2023 Albumin BCP dye [Mass/Vol] 3.0 g/dL Low 3.4 - 5.0 g/dL [facility] ALP [Catalytic activity/Vol] 93 U/L 33 - 110 U/L [facility] ALT With P-5'-P [Catalytic activity/Vol] 171 U/L High 7 - 45 U/L [facility] Comment on above: Patients treated wit h Sulfasalazine may generate falsely decreased results for ALT. Anion gap [Moles/Vol] 11 mmol/L 10 - 2 0 mmol/L [facility] AST With P-5'-P [Catalytic activity/Vol] 183 U/L High 9 - 39 U/L [facility] Bilirubin [Mass/Vol] 0.4 mg/dL 0.0 - 1 .2 mg/dL [facility] Calcium [Mass/Vol] 8.0 mg/dL Low 8.6 - 10. 3 mg/dL [facility] Chloride [Moles/Vol] 103 mmol/L 98 - 10 7 mmol/L [facility] CO2 [Moles/Vol] 24 mmol/L 21 - 32 mmol/L [facility] Creatinine [Mass/Vol] 0.58 mg/dL 0.50 - 1.05 mg/dL [facility] eGFR - PINF [facility] Comment on above: Calculations of bella mated GFR are performed using the 2020 CKD-EPI Study Refit equation without the race variable for the IDMS-Traceable creatinine methods. https://jasn.asnjournals.org/content/early/ASN.2020 750521 Glucose [Mass/Vol] 103 mg/dL High 74 - 99 mg/dL [facility] Interpretation and review of laboratory results Abnormal [facility] Potassium [Moles/Vol] 3.8 mmol/L 3.5 - 5.3 mmol/L [facility] Protein [Mass/Vol] 5.6 g/dL Low 6.4 - 8.2 g/dL [facility] Sodium [Moles/Vol] 134 mmol/L Low 136 - 145 mmol/L [facility] Urea nitrogen [Mass/Vol] 13 mg/dL 6 - 23 mg/dL [facility] Albumin BCP dye [Mass/Vol] 3.0 g/dL Low 3.4-5.0 [facility] Comment on above: Performed By: #### 2 4323-8 ####SRAVANI LOVE ([id number])[facility])[address] [place] [address] ALP [Catalytic activity/Vol] 93 U/L Normal 33-110 [facility] Comment on above: Performed By: #### 2 4323-8 ####SRAVANI LOVE ([id number])[facility])[address] [place] [address] 04824 ALT With P-5'-P [Catalytic activity/Vol] 171 U/L High 7-45 [facility] Comment on above: Result Comment: Glendy ents treated with Sulfasalazine may generate falsely decreased results for ALT. Performed By: #### 2 432-8 ####SRAVANI LOVE ([id number])[facility])[address] [place] [address] Anion gap [Moles/Vol] 11 mmol/L Normal 10-20 [facility] Comment on above: Performed By: #### 2 432-8 ####SRAVANI LOVE ([id number])[facility])[address] [place] [address] 52049 AST With P-5'-P [Catalytic activity/Vol] 183 U/L High 9-39 [facility] Comment on above: Performed By: #### 2 4322-8 ####SRAVANI LOVE ([id number])[facility])[address] [place] [address] 73298 Bilirubin [Mass/Vol] 0.4 mg/dL Normal 0.0-1.2 [facility] Comment on above: Performed By: #### 2 4322-8 ####SRAVANI LOVE ([id number])[facility])[address] [place] [address] 84838 Calcium [Mass/Vol] 8.0 mg/dL Low 8.6-10.3 [facility] Comment on above: Performed By: #### 2 4322-8 ####RSAVANI LOVE ([id number])[facility])[address] [place] [address] 54034 Chloride [Moles/Vol] 103 mmol/L Normal 98-107 [facility] Comment on above: Performed By: #### 2 4322-8 ####SRAVANI LOVE ([id number])[facility])[address] [place] [address] 88354 CO2 [Moles/Vol] 24 mmol/L Normal 21-32 [facility] Comment on above: Performed By: #### 2 432-8 ####SRAVANI LOVE ([id number])[facility])[address] [place] [address] 89637 Creatinine [Mass/Vol] 0.58 mg/dL Normal 0.50-1.05 [facility] Comment on above: Performed By: #### 2 4323-8 ####SRAVANI LOVE ([id number])[facility])[address] [place] [address] 62105 GFR/1.73 sq M.predicted MDRD (S/P/Bld) [Vol rate/Area] mL/min/{1.73_m2} Normal >60 [facility] Comment on above: Result Comment: Calc ulations of estimated GFR are performed using the 2020 CKD-EPI Study Refit equation without the race variable for the IDMS-Traceable creatinine methods. https://jasn.asnjournals.org/content/early//ASN.2020 709429 Performed By: #### 2 4323-8 ####SRAVANI LOVE ([id number])[facility])[address] [place] [address] 67421 Glucose [Mass/Vol] 103 mg/dL High 74-99 [facility] Comment on above: Performed By: #### 2 4323-8 ####SRAVANI LOVE ([id number])[facility] [place] [address] 61560 Potassium [Moles/Vol] 3.8 mmol/L Normal 3.5-5.3 [facility] Comment on above: Performed By: #### 2 4323-8 ####SRAVANI LOVE ([id number])[facility])[address] [place] [address] 49533 Protein [Mass/Vol] 5.6 g/dL Low 6.4-8.2 [facility] Comment on above: Performed By: #### 2 4323-8 ####SRAVANI LOVE ([id number])[facility])[address] [place] [address] 48122 Sodium [Moles/Vol] 134 mmol/L Low 136-145 [facility] Comment on above: Performed By: #### 2 4323-8 ####SRAVANI LOVE ([id number])[facility])[address] [place] [address] 82173 Urea nitrogen [Mass/Vol] 13 mg/dL Normal - [facility] Comment on above: Performed By: #### 2 4323-8 ####SRAVANI LOVE ([id number])[facility])[address] [place] [address] 31345 Creatine Kinaseon 10-18-2023 CK [Catalytic activity/Vol] 5345 U/L High 0 - 215 U/L [facility] CK [Catalytic activity/Vol] 4252 U/L High 0 - 215 U/L [facility] Creatine kinaseon 10-18-2023 CK [Catalytic activity/Vol] 5345 U/L High 0-215 [facility] Comment on above: Performed By: #### 5 7021-8 #### SRAVANI LOVE ([id number]) [facility] [address] [place] [address] 42068 CK [Catalytic activity/Vol] 4252 U/L High 0-215 [facility] Comment on above: Performed By: #### 2 157-6 ####SRAVANI LOVE ([id number])[facility])[address] [place] [address] 44753 ECG 12-LEADon 10-18-2023 ECG 12-LEAD Ventricular Rate 89 Atrial Rate 89 P-R Interval 152 QRS Duration 76 Q-T Interval 320 QTC Calculation(Bazett) 389 P Hettick 35 R Hettick -2 T Hettick 29 QRS Count 15 Q Onset 219 P Onset 143 P Offset 199 T Offset 379 QTC Fredericia 364 Diagnosis Normal sinus rhythm Low voltage QRS Cannot rule out Anterior infarct , age undetermined Abnormal ECG When compared with ECG of 12-FEB-2023 23:03, Minimal criteria for Anterior infarct are now Present Nonspecific T wave abnormality, worse in Lateral leads See ED provider note for full interpretation and clinical correlation Confirmed by Melany Arteaga ([id number]) on 10/24/2023 9:00:37 PM Normal [facility] ESR Westergren method (Bld) [Velocity]on 09-07-2024 ESR (Bld) [Velocity] 16 mm/h 0 - 20 mm/h [facility] Interpretation and review of laboratory results Normal [facility] ESR (Bld) [Velocity] 16 mm/h Normal 0-20 [facility] Comment on above: Performed By: #### 4 537-7 ####SRAVANI LOVE ([id number])[facility])[address] [place] [address] No Panel Informationon 10-17 Extra Tube Hold for add-ons. [facility] Comment on above: Auto resulted. [facility] Nuclear Abon 10-18-2023 Nuclear Ab Hep2 substrate Ql (S) Negative Normal Negative [facility] Comment on above: Result Comment: The Antinuclear Antibody (LESTER) test was performed using indirect immunofluorescence assay with HEp-2 cells slide. Performed By: #### 9 4149-2 #### SRAVANI LOVE ([id number]) [facility] [address] [place] [address] Nuclear Ab Hep2 substrate Ql (S)on 10-18-2023 CYTOPLASMIC PATTERN Present Normal [facility] Comment on above: Performed By: #### 9 4149-2 #### SRAVANI LOVE ([id number]) [facility] [address] [place] [address] ProcalcitoninOrdered By: Iraida Fuentes on 10-18-2023 Procalcitonin [Mass/Vol] 0.11 ng/mL High NINF - 0.07 ng/mL [facility] Procalcitoninon 10-18-2023 Procalcitonin [Mass/Vol] 0.11 ng/mL High <=0.07 [facility] Comment on above: Order Comment: wants early d/t low blood sugar Performed By: #### 3 3959-8 ####HAYDEE Lin ([id number])[facility] ([facility])[address] [place] [address] Procalcitonin [Mass/Vol]Orde red By: Josselin Fuentes on 10-18-2023 Interpretation and review of laboratory results Abnormal [facility] Procalcitonin (PCT) results measured serially can aid in decision-making for antibiotic discontinuation in patients with suspected or confirmed sepsis in conjunction with additional clinical information. Antibiotic discontinuation may be considered with a change in PCT of >80% from the peak result or when PCT falls below 0.50 ng/mL. Procalcitonin results should not be used in isolation but should be interpreted in conjunction with additional clinical and laboratory findings. Procalcitonin results should not be used to guide the initiation of antibiotic therapy. Falsely low PCT values in the presence of bacterial infection may occur in early infection, with atypical pathogens, localized infections, and subacute infectious endocarditis. Falsely elevated results outside of severe bacterial infection/sepsis may be seen in patients with renal failure or insufficiency, severe trauma or romano, recent major abdominal/cardiac surgery, acute multi-organ failure, rarely in patients with medullary thyroid carcinoma and rare neuroendocrine tumors, and non-specific interfering antibodies (heterophile antibodies, rheumatoid factor, human anti-mouse antibodies (HAMA), etc). Performance of the PCT test in pediatric patients (<18yo), women, immunocompromised patients, and patients on immunomodulatory medications has not been evaluated. [facility] Tropinin I.cardiac panel Hig h sensitivity methodon 10-18-2023 Interpretation and review of laboratory results Abnormal [facility] Less than 99th percentile of normal range cutoff- Female and children under 18 years old <14 ng/L; Male <21 ng/L: Negative Repeat testing should be performed if clinically indicated. Female and children under 18 years old 14-50 ng/L; Male 21-50 ng/L: Consistent with possible cardiac damage and possible increased clinical risk. Serial measurements may help to assess extent of myocardial damage. >50 ng/L: Consistent with cardiac damage, increased clinical risk and myocardial infarction. Serial measurements may help assess extent of myocardial damage. NOTE: Children less than 1 year old may have higher baseline troponin levels and results should be interpreted in conjunction with the overall clinical context. NOTE: Troponin I testing is performed using a different testing methodology at [facility] [place] than at other [facility] area hospital. Direct result comparisons should only be made within the same method. [facility] Troponin I, High Sensitivity on 10-18-2023 Tropinin I.cardiac panel High sensitivity method 424 ng/L Critically high 0 - 13 ng/L [facility] Comment on above: Previous result veri fied on 10/17/20232318 on specimen/case [id number] called with component TRPHS for procedure Troponin I, High Sensitivity, Initial with value 489 ng/L. Troponin I.cardiac panelon 0 10-18-2023 Tropinin I.cardiac panel High sensitivity method 424 ng/L Critically high 0-13 [facility] Comment on above: Order Comment: wants early d/t low blood sugar Result Comment: Prev ious result verified on 10/17/20232318 on specimen/case [id number] called with component TRPHS for procedure Troponin I, High Sensitivity, Initial with value 489 ng/L. Performed By: #### 8 9577-1 ####LASSITER KATE ([id number])[facility])[address] [place] [address] Urinalysis complete W Reflex Culture panel (U)on 10-18-2023 Appearance (U) Clear Clear [facility] Bilirubin (U) [Mass/Vol] Negative NEGATIVE [facility] Color (U) Colorless Abnormal Light-Yellow , Yellow, Dark-Yellow [facility] Glucose Auto test strip (U) [Mass/Vol] Normal Normal mg/dL [facility] Interpretation and review of laboratory results Abnormal [facility] Ketones (U) [Mass/Vol] Negative NEGAT KARYN mg/dL [facility] Leukocyte esterase Auto test strip Ql (U) Negative NEGATIVE [facility] Nitrite Auto test strip Ql (U) Negative NEGATIVE [facility] pH (U) 6.5 [pH] 5.0, 5.5, 6.0, 6.5, 7.0, 7.5, 8.0 [facility] Protein (U) [Mass/Vol] Negative NEGAT KARYN, 10 (TRACE), 20 (TRACE) mg/dL [facility] RBC (U) [#/Vol] Negative NEGATIVE [facility] Specific gravity (U) [Rel density] 1.007 1.005 - 1.035 [facility] Urobilinogen (U) [Mass/Vol] Normal Normal mg/dL [facility] Appearance (U) Clear Normal Clear [facility] Comment on above: Performed By: #### 5 8077-9 ####SRAVANI LOVE ([id number])[facility])[address] [place] [address] Bilirubin (U) [Mass/Vol] Negative Normal NEGATIVE [facility] Comment on above: Performed By: #### 5 8077-9 ####SRAVANI LOVE ([id number])[facility])[address] [place] [address] Color (U) Colorless Normal Light-Yellow , Yellow, Dark-Yellow [facility] Comment on above: Performed By: #### 5 8077-9 ####SRAVANI LOVE ([id number])[facility])[address] [place] [address] Glucose Auto test strip (U) [Mass/Vol] Normal Normal Normal [facility] Comment on above: Performed By: #### 5 8077-9 ####SRAVANI LOVE ([id number])[facility])[address] [place] [address] Ketones (U) [Mass/Vol] Negative Normal NEGATIVE [facility] Comment on above: Performed By: #### 5 8077-9 ####SRAVANI LOVE ([id number])[facility])[address] [place] [address] Leukocyte esterase Auto test strip Ql (U) Negative Normal NEGATIVE [facility] Comment on above: Performed By: #### 5 8077-9 ####SRAVANI LOVE ([id number])[facility])[address] [place] [address] 96632 Nitrite Auto test strip Ql (U) Negative Normal NEGATIVE [facility] Comment on above: Performed By: #### 5 8077-9 ####SRAVANI LOVE ([id number])[facility])[address] [place], [place] [id number] pH (U) 6.5 [pH] Normal 5.0, 5.5, 6.0, 6.5, 7.0, 7.5, 8.0 [facility] Comment on above: Performed By: #### 5 8077-9 ####SRAVANI LOVE ([id number])[facility])[address] [place] [address] Protein (U) [Mass/Vol] Negative Normal NEGAT KARYN, 10 (TRACE), 20 (TRACE) [facility] Comment on above: Performed By: #### 5 8077-9 ####SRAVANI LOVE ([id number])[facility])[address] [place] [address] RBC (U) [#/Vol] Negative Normal NEGATIVE [facility] Comment on above: Performed By: #### 5 8077-9 ####SRAVANI LOVE ([id number])[facility])[address] [place] [address] Specific gravity (U) [Rel density] 1.007 Normal 1.005-1.035 [facility] Comment on above: Performed By: #### 5 8077-9 ####SRAVANI LOVE ([id number])[facility])[address] [place] [address] Urobilinogen (U) [Mass/Vol] Normal Normal Normal [facility] Comment on above: Performed By: #### 5 8077-9 ####SRAVANI LOVE ([id number])[facility])[address] [place] [address] CBC W Auto Differential pane l (Bld)on 10-17-2023 Basophils (Bld) [#/Vol] 0.01 10*3/uL [facility] Basophils/100 WBC (Bld) 0.1 % 0.0 - 2.0 % [facility] Eosinophils (Bld) [#/Vol] 0.56 10*3/uL [facility] Eosinophils/100 WBC (Bld) 7.6 % 0.0 - 6.0 % [facility] Erythrocyte distribution width (RBC) [Ratio] 14.2 % 11.5 - 14.5 % [facility] Hematocrit (Bld) [Volume fraction] 42.2 % 36.0 - 46.0 % [facility] Hemoglobin (Bld) [Mass/Vol] 13.8 g/dL 12.0 - 16.0 g/dL [facility] Immature granulocytes (Bld) [#/Vol] 0.06 10*3/uL [facility] Immature granulocytes/100 WBC (Bld) 0.8 % 0.0 - 0.9 % [facility] Comment on above: Immature Granulocyte Count (IG) includes promyelocytes, myelocytes and metamyelocytes but does not include bands. Percent differential counts (%) should be interpreted in the context of the absolute cell counts (cells/UL). Lymphocytes (Bld) [#/Vol] 1.47 10*3/uL [facility] Lymphocytes/100 WBC (Bld) 20.1 % 13.0 - 44.0 % [facility] MCH (RBC) [Entitic mass] 27.4 pg 26.0 - 34.0 pg [facility] MCHC (RBC) [Mass/Vol] 32.7 g/dL 32.0 - 36.0 g/dL [facility] MCV (RBC) [Entitic vol] 84 fL 80 - 100 fL [facility] Monocytes (Bld) [#/Vol] 0.17 10*3/uL [facility] Monocytes/100 WBC (Bld) 2.3 % 2.0 - 10.0 % [facility] Neutrophils (Bld) [#/Vol] 5.06 10*3/uL [facility] Comment on above: Percent differential counts (%) should be interpreted in the context of the absolute cell counts (cells/uL). Neutrophils/100 WBC (Bld) 69.1 % 40.0 - 80.0 % [facility] Nucleated RBC/100 WBC (Bld) [Ratio] 0.0 % [facility] Platelets (Bld) [#/Vol] 206 10*3/uL [facility] RBC (Bld) [#/Vol] 5.03 10*6/uL [facility] WBC (Bld) [#/Vol] 7.3 10*3/uL [facility] Basophils (Bld) [#/Vol] 0.01 x10*3/uL Normal 0.00-0.10 [facility] Comment on above: Performed By: #### 5 7021-8 #### SRAVANI LOVE ([id number]) [facility] [address] [place] [address] 84044 Basophils/100 WBC (Bld) 0.1 % Normal 0.0-2.0 [facility] Comment on above: Performed By: #### 7021-8 #### SRAVANI LOVE ([id number]) [facility] [address] [place] [address] 08988 Eosinophils (Bld) [#/Vol] 0.56 x10*3/uL Normal 0.00-0.70 [facility] Comment on above: Performed By: #### 7021-8 #### SRAVANI LOVE ([id number]) [facility] [address] [place] [address] 16767 Eosinophils/100 WBC (Bld) 7.6 % Normal 0.0-6.0 [facility] Comment on above: Performed By: #### 5 7021-8 #### SRAVANI LOVE ([id number]) [facility] [address] [place] [address] 89951 Erythrocyte distribution width (RBC) [Ratio] 14.2 % Normal 11.5-14.5 [facility] Comment on above: Performed By: #### 5 7021-8 #### SRAVANI LOVE ([id number]) [facility] [address] [place] [address] 81226 Hematocrit (Bld) [Volume fraction] 42.2 % Normal 36.0-46.0 [facility] Comment on above: Performed By: #### 5 7021-8 #### SRAVANI LOVE ([id number]) [facility] [address] [place] [address] 67131 Hemoglobin (Bld) [Mass/Vol] 13.8 g/dL Normal 12.0-16.0 [facility] Comment on above: Performed By: #### 5 7021-8 #### SRAVANI LOVE ([id number]) [facility] [address] [place] [address] 53978 Immature granulocytes (Bld) [#/Vol] 0.06 x10*3/uL Normal 0.00-0.70 [facility] Comment on above: Performed By: #### 5 7021-8 #### SRAVANI LOVE ([id number]) [facility] [address] [place] [address] 01195 Immature granulocytes/100 WBC (Bld) 0.8 % Normal 0.0-0.9 [facility] Comment on above: Result Comment: Donna ture Granulocyte Count (IG) includes promyelocytes, myelocytes and metamyelocytes but does not include bands. Percent differential counts (%) should be interpreted in the context of the absolute cell counts (cells/UL). Performed By: #### 5 7021-8 #### SRAVANI LOVE ([id number]) [facility] [address] [place] [address] 73094 Lymphocytes (Bld) [#/Vol] 1.47 x10*3/uL Normal 1.20-4.80 [facility] Comment on above: Performed By: #### 5 7021-8 #### SRAVANI LOVE ([id number]) [facility] [address] [place] [address] 03653 Lymphocytes/100 WBC (Bld) 20.1 % Normal 13.0-44.0 [facility] Comment on above: Performed By: #### 5 7021-8 #### SRAVANI LOVE ([id number]) [facility] [address] [place] [address] 88902 MCH (RBC) [Entitic mass] 27.4 pg Normal 26.0-34.0 [facility] Comment on above: Performed By: #### 5 7021-8 #### SRAVANI LOVE ([id number]) [facility] [address] [place] [address] 39643 MCHC (RBC) [Mass/Vol] 32.7 g/dL Normal 32.0-36.0 [facility] Comment on above: Performed By: #### 5 7021-8 #### SRAVANI LOVE ([id number]) [facility] [address] [place] [address] 76372 MCV (RBC) [Entitic vol] 84 fL Normal 80-100 [facility] Comment on above: Performed By: #### 5 7021-8 #### SRAVANI LOVE ([id number]) [facility] [address] [place] [address] 45698 Monocytes (Bld) [#/Vol] 0.17 x10*3/uL Normal 0.10-1.00 [facility] Comment on above: Performed By: #### 5 7021-8 #### SRAVANI LOVE ([id number]) [facility] [address] [place] [address] 29019 Monocytes/100 WBC (Bld) 2.3 % Normal 2.0-10.0 [facility] Comment on above: Performed By: #### 5 7021-8 #### SRAVANI LOVE ([id number]) [facility] [address] [place] [address] 07721 Neutrophils (Bld) [#/Vol] 5.06 x10*3/uL Normal 1.20-7.70 [facility] Comment on above: Result Comment: Perc ent differential counts (%) should be interpreted in the context of the absolute cell counts (cells/uL). Performed By: #### 5 7021-8 #### SRAVANI LOVE ([id number]) [facility] [address] [place] [address] 19756 Neutrophils/100 WBC (Bld) 69.1 % Normal 40.0-80.0 [facility] Comment on above: Performed By: #### 5 7021-8 #### SRAVANI LOVE ([id number]) [facility] [address] [place] [address] Nucleated RBC/100 WBC (Bld) [Ratio] 0.0 /100 WBCs Normal 0.0-0.0 [facility] Comment on above: Performed By: #### 5 7021-8 #### SRAVANI LOVE ([id number]) [facility] [address] [place] [address] 48166 Platelets (Bld) [#/Vol] 206 x10*3/uL Normal 150-450 [facility] Comment on above: Performed By: #### 5 7021-8 #### SRAVANI LOVE ([id number]) [facility] [address] [place] [address] 45186 RBC (Bld) [#/Vol] 5.03 x10*6/uL Normal 4.00-5.20 [facility] Comment on above: Performed By: #### 5 7021-8 #### SRAVANI LOVE ([id number]) [facility] [address] [place] [address] 49150 WBC (Bld) [#/Vol] 7.3 x10*3/uL Normal 4.4-11.3 [facility] Comment on above: Performed By: #### 5 7021-8 #### SRAVANI LOVE ([id number]) [facility] [address] [place] [address] 06078 Cardiac Enzymes - CPKon - CK [Catalytic activity/Vol] 4423 U/L High 0 - 215 U/L [facility] Comprehensive metabolic 2000 panelon 10-17-2023 Albumin BCP dye [Mass/Vol] 3.1 g/dL Low 3.4 - 5.0 g/dL [facility] ALP [Catalytic activity/Vol] 93 U/L 33 - 110 U/L [facility] ALT With P-5'-P [Catalytic activity/Vol] 169 U/L High 7 - 45 U/L [facility] Comment on above: Patients treated wit h Sulfasalazine may generate falsely decreased results for ALT. Anion gap [Moles/Vol] 11 mmol/L 10 - 2 0 mmol/L [facility] AST With P-5'-P [Catalytic activity/Vol] 192 U/L High 9 - 39 U/L [facility] Bilirubin [Mass/Vol] 0.4 mg/dL 0.0 - 1 .2 mg/dL [facility] Calcium [Mass/Vol] 8.6 mg/dL 8.6 - 10. 3 mg/dL [facility] Chloride [Moles/Vol] 100 mmol/L 98 - 10 7 mmol/L [facility] CO2 [Moles/Vol] 26 mmol/L 21 - 32 mmol/L [facility] Creatinine [Mass/Vol] 0.77 mg/dL 0.50 - 1.05 mg/dL [facility] eGFR - PINF [facility] Comment on above: Calculations of bella mated GFR are performed using the 2020 CKD-EPI Study Refit equation without the race variable for the IDMS-Traceable creatinine methods. https://jasn.asnjournals.org/content/early//ASN.2020 182163 Glucose [Mass/Vol] 127 mg/dL High 74 - 99 mg/dL [facility] Potassium [Moles/Vol] 4.2 mmol/L 3.5 - 5.3 mmol/L [facility] Protein [Mass/Vol] 5.7 g/dL Low 6.4 - 8.2 g/dL [facility] Sodium [Moles/Vol] 133 mmol/L Low 136 - 145 mmol/L [facility] Urea nitrogen [Mass/Vol] 15 mg/dL 6 - 23 mg/dL [facility] Albumin BCP dye [Mass/Vol] 3.1 g/dL Low 3.4-5.0 [facility] Comment on above: Performed By: #### 2 4323-8 #### SRAVANI LOVE ([id number]) [facility] [address] [place] [address] ALP [Catalytic activity/Vol] 93 U/L Normal 33-110 [facility] Comment on above: Performed By: #### 2 4323-8 #### SRAVANI LOVE ([id number]) [facility] [address] [place] [address] ALT With P-5'-P [Catalytic activity/Vol] 169 U/L High 7-45 [facility] Comment on above: Result Comment: Glendy ents treated with Sulfasalazine may generate falsely decreased results for ALT. Performed By: #### 2 4323-8 #### SRAVANI LOVE ([id number]) [facility] [address] [place] [address] Anion gap [Moles/Vol] 11 mmol/L Normal 10-20 [facility] Comment on above: Performed By: #### 2 4323-8 #### SRAVANI LOVE ([id number]) [facility] [address] [place] [address] AST With P-5'-P [Catalytic activity/Vol] 192 U/L High 9-39 [facility] Comment on above: Performed By: #### 2 4323-8 #### SRAVANI LOVE ([id number]) [facility] [address] [place] [address] Bilirubin [Mass/Vol] 0.4 mg/dL Normal 0.0-1.2 [facility] Comment on above: Performed By: #### 2 4323-8 #### SRAVANI LOVE ([id number]) [facility] [address] [place] [address] Calcium [Mass/Vol] 8.6 mg/dL Normal 8.6-10.3 [facility] Comment on above: Performed By: #### 2 4323-8 #### SRAVANI LOVE ([id number]) [facility] [address] [place] [address] Chloride [Moles/Vol] 100 mmol/L Normal 98-107 [facility] Comment on above: Performed By: #### 2 4323-8 #### SRAVANI LOVE ([id number]) [facility] [address] [place] [address] CO2 [Moles/Vol] 26 mmol/L Normal 21-32 [facility] Comment on above: Performed By: #### 2 4323-8 #### SRAVANI LOVE ([id number]) [facility] [place] [address] Creatinine [Mass/Vol] 0.77 mg/dL Normal 0.50-1.05 [facility] Comment on above: Performed By: #### 2 4323-8 #### SRAVANI LOVE ([id number]) [facility] [address] [place] [address] 10095 GFR/1.73 sq M.predicted MDRD (S/P/Bld) [Vol rate/Area] mL/min/{1.73_m2} Normal >60 [facility] Comment on above: Result Comment: Calc ulations of estimated GFR are performed using the 2020 CKD-EPI Study Refit equation without the race variable for the IDMS-Traceable creatinine methods. https://jasn.asnjournals.org/content/early//ASN.2020 491981 Performed By: #### 2 4323-8 #### SRAVANI LOVE ([id number]) [facility] [address] [place] [address] 45674 Glucose [Mass/Vol] 127 mg/dL High 74-99 [facility] Comment on above: Performed By: #### 2 4323-8 #### SRAVANI LOVE ([id number]) [facility] [address] [place] [address] 08021 Potassium [Moles/Vol] 4.2 mmol/L Normal 3.5-5.3 [facility] Comment on above: Performed By: #### 2 4323-8 #### SRAVANI LOVE ([id number]) [facility] [address] [place] [address] 89503 Protein [Mass/Vol] 5.7 g/dL Low 6.4-8.2 [facility] Comment on above: Performed By: #### 2 4323-8 #### SRAVANI LOVE ([id number]) [facility] [address] [place] [address] 03073 Sodium [Moles/Vol] 133 mmol/L Low 136-145 [facility] Comment on above: Performed By: #### 2 4323-8 #### SRAVANI LOVE ([id number]) [facility] [address] [place] [address] 96023 Urea nitrogen [Mass/Vol] 15 mg/dL Normal 6-23 [facility] Comment on above: Performed By: #### 2 4323-8 #### SRAVANI LOVE ([id number]) [facility] [address] [place] [address] 03061 Creatine kinaseon 10-17-2023 CK [Catalytic activity/Vol] 4423 U/L High 0-215 [facility] Comment on above: Performed By: #### 2 157-6 #### SRAVANI LOVE ([id number]) [facility] [address] [place] [address] 20470 Heterophile Abon 10-17-2023 Heterophile Ab IA.rapid Ql (S/P/Bld) Negative Normal Negative [facility] Comment on above: Performed By: #### 9 4149-2 #### SRAVANI LOVE ([id number]) [facility] [address] [place] [address] 64516 Heterophile Ab IA.rapid Ql ( S/P/Bld)Ordered By: Dang Contreras on 10-17-2023 Interpretation and review of laboratory results Normal [facility] Lactateon 10-17-2023 Lactate [Moles/Vol] 1.2 mmol/L 0.4 - 2. 0 mmol/L [facility] Lactate [Moles/Vol] 1.2 mmol/L Normal 0.4-2.0 [facility] Comment on above: Order Comment: Venip uncture immediately after or during the administration of Metamizole may lead to falsely low results. Testing should be performed immediately prior to Metamizole dosing. Performed By: #### 2 524-7 #### SRAVANI LOVE ([id number]) [facility] [address] [place] [address] Lactate [Moles/Vol]on 2023 Interpretation and review of laboratory results Normal [facility] Venipuncture immediately after or during the administration of Metamizole may lead to falsely low results. Testing should be performed immediately prior to Metamizole dosing. [facility] Mononucleosis screenOrdered By: Dang Contreras on 10-17-2023 Heterophile Ab IA.rapid Ql (S/P/Bld) Negative Negative [facility] No Panel Informationon 10-16 Interpretation and review of laboratory results Normal [facility] Interpretation and review of laboratory results Abnormal [facility] RSV PCRon 10-17-2023 RSV RNA AHMET+probe Ql (Resp) Not detected Not Detected [facility] RSV RNA AHMET+probe Ql (Resp)o n 10-17-2023 This assay is an FDA-cleared, in vitro diagnostic nucleic acid amplification test for the detection of RSV from nasopharyngeal specimens, and has been validated for use at [facility]. Negative results do not preclude RSV infections, and should not be used as the sole basis for diagnosis, treatment, or other management decisions. If Influenza A/B and RSV PCR results are negative, testing for Parainfluenza virus, Adenovirus and Metapneumovirus is routinely performed for pediatric oncology and intensive care inpatients at [facility], and is available on other patients by placing an add-on request. [facility] Respiratory syncytial virus RNAon 10-17-2023 RSV RNA AHMET+probe Ql (Resp) Not detected Normal Not Detected [facility] Comment on above: Order Comment: wants early d/t low blood sugar Performed By: #### 9 2131-2 ####SRAVANI LOVE ([id number])[facility] [place] [address] SARS coronavirus 2 RNAon SARS-CoV-2 (COVID-19) RNA AHMET+probe Ql (Resp) Not detected Normal Not Detected [facility] Comment on above: Order Comment: wants early d/t low blood sugar Performed By: #### 9 [id number] ####SRAVANI LOVE ([id number])[facility] [place] [address] SARS-CoV-2 (COVID-19) RNA NA A+probe Ql (Resp)on 10-17-2023 This assay has recei carola FDA Emergency Use Authorization (EUA) and is only authorized for the duration of time that circumstances exist to justify the authorization of the emergency use of in vitro diagnostic tests for the detection of SARS-CoV-2 virus and/or diagnosis of COVID-19 infection under section 564(b)(1) of the Act, 21 U.S.C. 360bbb-3(b)(1). This assay is an in vitro diagnostic nucleic acid amplification test for the qualitative detection of SARS-CoV-2 from nasopharyngeal specimens and has been validated for use at [facility]. Negative results do not preclude COVID-19 infections and should not be used as the sole basis for diagnosis, treatment, or other management decisions. [facility] Sars-CoV-2 PCRon 10-17-2023 SARS-CoV-2 (COVID-19) RNA AHMET+probe Ql (Resp) Not detected Not Detected [facility] TSH Qnon 10-17-2023 Interpretation and review of laboratory results Normal [facility] TSH testing is performed using different testing methodology at [facility] than at other bay area hospital. Direct result comparisons should only be made within the same method. [facility] Thyroid Stimulating Hormoneo n 10-17-2023 TSH Qn 2.69 m[IU]/L [facility] Thyrotropinon 10-17-2023 TSH Qn 2.69 m[IU]/L Normal 0.44-3.98 [facility] Comment on above: Order Comment: TSH t esting is performed using different testing methodology at [facility] than at other bay area hospital. Direct result comparisons should only be made within the same method. Performed By: #### 3 016-3 #### SRAVANI LOVE ([id number]) [facility] [address] [place] [address] Tropinin I.cardiac panel Hig h sensitivity methodon 10-17-2023 Interpretation and review of laboratory results Abnormal [facility] Less than 99th percentile of normal range cutoff- Female and children under 18 years old <14 ng/L; Male <21 ng/L: Negative Repeat testing should be performed if clinically indicated. Female and children under 18 years old 14-50 ng/L; Male 21-50 ng/L: Consistent with possible cardiac damage and possible increased clinical risk. Serial measurements may help to assess extent of myocardial damage. >50 ng/L: Consistent with cardiac damage, increased clinical risk and myocardial infarction. Serial measurements may help assess extent of myocardial damage. NOTE: Children less than 1 year old may have higher baseline troponin levels and results should be interpreted in conjunction with the overall clinical context. NOTE: Troponin I testing is performed using a different testing methodology at [facility] than at other bay area hospital. Direct result comparisons should only be made within the same method. [facility] Interpretation and review of laboratory results Abnormal [facility] Less than 99th percentile of normal range cutoff- Female and children under 18 years old <14 ng/L; Male <21 ng/L: Negative Repeat testing should be performed if clinically indicated. Female and children under 18 years old 14-50 ng/L; Male 21-50 ng/L: Consistent with possible cardiac damage and possible increased clinical risk. Serial measurements may help to assess extent of myocardial damage. >50 ng/L: Consistent with cardiac damage, increased clinical risk and myocardial infarction. Serial measurements may help assess extent of myocardial damage. NOTE: Children less than 1 year old may have higher baseline troponin levels and results should be interpreted in conjunction with the overall clinical context. NOTE: Troponin I testing is performed using a different testing methodology at [facility] than at other bay area hospital. Direct result comparisons should only be made within the same method. [facility] Troponin I, High Sensitivity , Initialon 10-17-2023 Tropinin I.cardiac panel High sensitivity method 489 ng/L Critically high 0 - 13 ng/L [facility] Troponin I.cardiac panelon 0 10-17-2023 Tropinin I.cardiac panel High sensitivity method 457 ng/L Critically high 0-13 [facility] Comment on above: Order Comment: wants early d/t low blood sugar Result Comment: Prev ious result verified on 10/17/20232318 on specimen/case [id number] called with component TRP for procedure Troponin I, High Sensitivity, Initial with value 489 ng/L. Performed By: #### 8 [id number] ####SRAVANI LOVE ([id number])[facility] [place] [id number] Tropinin I.cardiac panel High sensitivity method 489 ng/L Critically high 0-13 [facility] Comment on above: Order Comment: Less than 99th percentile of normal range cutoff- Female and children under 18 years old <14 ng/L; Male <21 ng/L: Negative Repeat testing should be performed if clinically indicated. Female and children under 18 years old 14-50 ng/L; Male 21-50 ng/L: Consistent with possible cardiac damage and possible increased clinical risk. Serial measurements may help to assess extent of myocardial damage. >50 ng/L: Consistent with cardiac damage, increased clinical risk and myocardial infarction. Serial measurements may help assess extent of myocardial damage. NOTE: Children less than 1 year old may have higher baseline troponin levels and results should be interpreted in conjunction with the overall clinical context. NOTE: Troponin I testing is performed using a different testing methodology at [facility] [place] [facility] than at other bay area hospital. Direct result comparisons should only be made within the same method. Performed By: #### 8 [id number] #### SRAVANI LOVE ([id number]) [facility] [address] [place] [id number] Troponin, High Sensitivity, 1 Houron 10-17-2023 Tropinin I.cardiac panel High sensitivity method 457 ng/L Critically high 0 - 13 ng/L [facility] Comment on above: Previous result veri fied on 10/17/20232318 on specimen/case [id number] called with component TRP for procedure Troponin I, High Sensitivity, Initial with value 489 ng/L. XR CHEST 1 VIEWon 10-17-2023 XR CHEST 1 VIEW Interpreted By: Merlin Tapia, STUDY: XR CHEST 1 VIEW; 10/17/2023 10:25 pm INDICATION: Signs/Symptoms:Weakness . COMPARISON: 02/13/2023 ACCESSION NUMBER(S): [id number] ORDERING CLINICIAN: CARRIE ALEJO FINDINGS: There is elevation of the right hemidiaphragm right basilar airspace opacity which is new from 02/13/2023. Normal heart size. No pneumothorax. Indistinctness of the right costophrenic sulcus may reflect a small pleural effusion. 0.8 cm pulmonary nodular opacity projected over the right upper lung which is similar to 144. Upper abdomen is unremarkable. IMPRESSION: 1. There is elevation of the right hemidiaphragm right basilar airspace opacity which is new from 02/13/2023. Possible small right pleural effusion. Consider atelectasis or consolidation/pneumonia . 2. Pulmonary nodule as seen on the 02/13/2023 CT. Signed by: Merlin Tapia 10/17/2023 11:06 PM Dictation workstation: [id number] [facility] XR Chest Single viewon 10-16 1. There is elevatio n of the right hemidiaphragm right basilar airspace opacity which is new from 02/13/2023. Possible small right pleural effusion. Consider atelectasis or consolidation/pneumonia . 2. Pulmonary nodule as seen on the 02/13/2023 CT. Signed by: Merlin Tapia 10/17/2023 11:06 PM Dictation workstation: [id number] [facility] Interpreted By: Merlin Tapia, STUDY: XR CHEST 1 VIEW; 10/17/2023 10:25 pm INDICATION: Signs/Symptoms:Weakness . COMPARISON: 02/13/2023 ACCESSION NUMBER(S): [id number] ORDERING CLINICIAN: CARRIE ALEJO FINDINGS: There is elevation of the right hemidiaphragm right basilar airspace opacity which is new from 02/13/2023. Normal heart size. No pneumothorax. Indistinctness of the right costophrenic sulcus may reflect a small pleural effusion. 0.8 cm pulmonary nodular opacity projected over the right upper lung which is similar to 144. Upper abdomen is unremarkable. [facility] Merlin Tapia, DO - 10/17/2023 Interpreted By: Merlin Tapia, STUDY: XR CHEST 1 VIEW; 10/17/2023 10:25 pm INDICATION: Signs/Symptoms:Weakness . COMPARISON: 02/13/2023 ACCESSION NUMBER(S): [id number] ORDERING CLINICIAN: CARRIE ALEJO FINDINGS: There is elevation of the right hemidiaphragm right basilar airspace opacity which is new from 02/13/2023. Normal heart size. No pneumothorax. Indistinctness of the right costophrenic sulcus may reflect a small pleural effusion. 0.8 cm pulmonary nodular opacity projected over the right upper lung which is similar to 144. Upper abdomen is unremarkable. IMPRESSION: 1. There is elevation of the right hemidiaphragm right basilar airspace opacity which is new from 02/13/2023. Possible small right pleural effusion. Consider atelectasis or consolidation/pneumonia . 2. Pulmonary nodule as seen on the 02/13/2023 CT. Signed by: Merlin Tapia 10/17/2023 11:06 PM Dictation workstation: [id number] [facility] Work Phone: Radiology Study observation (narrative) [facility] Work Phone: XR Chest Single viewOrdered By: Merlin Tapia on 10-17-2023 [facility] Work Phone: POCT Group A Streptococcus, PCR manually resultedOrdered By: Lily Omer on 10-16-2023 S. pyogenes DNA AHMET+probe Ql (Throat) Not detected Not Detected [facility] POCT Influenza A/B manually resultedon 10-16-2023 POC Rapid Influenza A Negative Negative [facility] Work Phone: POC Rapid Influenza B Negative Negative [facility] Work Phone: [facility] Work Phone: POCT SARS-COV-2 PCR manually resultedon 10-16-2023 SARS-CoV-2 (COVID-19) RNA AHMET+probe Ql (Resp) Not detected Not Detected [facility] Work Phone: [facility] Work Phone: Cervical AND or Vaginal cyto logy studyon 10-15-2023 Cytology Cervical or vaginal smear or scraping study Pathology report.total SEE COMMENT Gynecologic Cytology Case: [id number] Authorizing Provider: Kingsley Hutchins MD Collected: 10/15/2023834 Ordering Location: [facility] Received: 10/15/2023 08 [address] Building First Screen: NIRMAL Price Rescreen: NIRMAL Llamas Specimen: ThinPrep Liquid-Based Pap-Imaging System Screen, VAGINA, SCREENING Cytology study comment SEE COMMENT A. THINPREP PAP VAGINA, SCREENING - Specimen Adequacy Satisfactory for evaluation Quality Indicator: Partially obscured by cytolysis General Categorization Negative for intraepithelial lesion or malignancy. Descriptive Interpretation Negative for intraepithelial lesion or malignancy Fungal organisms morphologically consistent with Jolly spp. Specimen does not meet the requisition-stated criteria for HPV testing. See Pap test interpretation above. Laboratory comment SEE COMMENT Slide(s) initially screened by NIRMAL NIEVES at [facility] [address] [facility] [id number] QC review performed by NIRMAL Llamas at [facility] [place] [id number] By the signature on this report, the individual or group listed as making the Final Interpretation/Diagnosi s certifies that they have reviewed this case. This specimen has been analyzed by the [employer] MobilePrep Imaging System ([employer] an automated imaging and review system, which assists the laboratory in evaluating cells on ThinPrep Pap tests. Following automated imaging, selected herrera from every slide were reviewed by a manager scheduling and/or pathologist. Cervical cytology is a screening procedure primarily for squamous cancers and precursors and has associated false-negative and false-positives results as evidenced by published data. Your patient's test should be interpreted in this context, together with the patient's history and clinical findings. Regular sampling and follow-up of unexplained clinical signs and symptoms are recommended to minimize false negative results. LAB AP HPV HR Reflex if ASCUS only LAB AP HPV GENOTYPE QUESTION Yes Menstrual History Hysterectomy Normal [facility] Ambulatory PREEMPT Chemodenervation: Mi graineon 10-02-2023 Jose Alvarez MD 10/02/2023 1:54 PM PREEMPT Chemodenervation: Migraine Date/Time: 10/02/2023 1:45 PM Performed by: Jose Alvarez MD Authorized by: Jose Alvarez MD Comments: Description of Procedure: After discussing the risks and benefits of botulinum toxin, the patient provided informed consent. The patient was placed in the seated position on the examination table. The skin was prepped using alcohol pads. A 30-gauge, 0.5 inch-long needle was used with four 1 cc syringes. Concentration: Two 100 unit vials of botox were diluted into 4 ml of normal saline for a concentration of 50 units/1ml. A total of 155 units of botulinum toxin were used and injected as below (divided equally between left and right unless otherwise indicated): 20 units divided into 4 sites in the frontalis muscles 10 units divided into 2 sites in the card scraper muscles 5 units divided into 1 site in the procerus muscle 40 units divided into 8 sites in the temporalis muscles 30 units divided into 6 sites in the occipitalis muscles 30 units divided into 6 sites in the trapezius muscles 20 units divided into 4 sites in the cervical paraspinal muscles A total of 45 units were discarded as unavoidable waste. The patient tolerated the procedure well and left the clinic without any complications. [facility] Radiology Study observation (narrative) [facility] POINT OF CARE ULTRASOUND NO CHARGEon 09-24-2023 POINT OF CARE ULTRASOUND NO CHARGE These images are not reportable by radiology and will not be interpreted by Radiologists. Normal [facility] US Abdomenon 09-24-2023 These images are not reportable by radiology and will not be interpreted by Radiologists. IMAGING COLONOSCOPYon 07-25-2023 Colonoscopy Table formatting fro m the original result was not included. Impression Normal. Findings All observed locations appeared normal.; Recommendation Follow up with PCP Repeat screening colonoscopy in 10 years Indication Colon cancer screening Staff Staff Role No Staff Documented Medications meperidine PF (Demerol) injection 50 mg midazolam PF (Versed) injection 6 mg (Totals for administrations occurring from 1004 to 1029 on 07/25/23) Preprocedure A history and physical has been performed, and patient medication allergies have been reviewed. The patient's tolerance of previous anesthesia has been reviewed. The risks and benefits of the procedure and the sedation options and risks were discussed with the patient and patient's partner. All questions were answered and informed consent obtained. Details of the Procedure The patient underwent moderate sedation, which was administered by the procedural nurse. The patient's blood pressure, ECG, ETCO2, heart rate, level of consciousness, oxygen and respirations were monitored throughout the procedure. A digital rectal exam was performed. The scope was introduced through the anus and advanced to the terminal ileum. The quality of bowel preparation was evaluated using the [place] Bowel Preparation Scale with scores of: right colon = 3, transverse colon = 3, left colon = 3. The total BBPS score was 9. Bowel prep was adequate. The patient experienced no blood loss. The procedure was not difficult. The patient tolerated the procedure well. There were no apparent adverse events. Events Procedure Events Event Event Time ENDO SCOPE IN TIME 07/25/2023 10:17 AM ENDO CECUM REACHED 07/25/2023 10:23 AM ENDO SCOPE OUT TIME 07/25/2023 10:27 AM Specimens No specimens collected Procedure Location [address] [id number] Referring Provider Leticia Jauregui DO Procedure Provider Leticia Jauregui DO [facility] Comment on above: Order Comment: wants early d/t low blood sugar Colonoscopy studyon 07-25-19 Table formatting fro m the original result was not included. Impression Normal. Findings All observed locations appeared normal.; Recommendation Follow up with PCP Repeat screening colonoscopy in 10 years Indication Colon cancer screening Staff Staff Role No Staff Documented Medications meperidine PF (Demerol) injection 50 mg midazolam PF (Versed) injection 6 mg (Totals for administrations occurring from 1004 to 1029 on 07/25/23) Preprocedure A history and physical has been performed, and patient medication allergies have been reviewed. The patient's tolerance of previous anesthesia has been reviewed. The risks and benefits of the procedure and the sedation options and risks were discussed with the patient and patient's partner. All questions were answered and informed consent obtained. Details of the Procedure The patient underwent moderate sedation, which was administered by the procedural nurse. The patient's blood pressure, ECG, ETCO2, heart rate, level of consciousness, oxygen and respirations were monitored throughout the procedure. A digital rectal exam was performed. The scope was introduced through the anus and advanced to the terminal ileum. The quality of bowel preparation was evaluated using the [place] Bowel Preparation Scale with scores of: right colon = 3, transverse colon = 3, left colon = 3. The total BBPS score was 9. Bowel prep was adequate. The patient experienced no blood loss. The procedure was not difficult. The patient tolerated the procedure well. There were no apparent adverse events. Events Procedure Events Event Event Time ENDO SCOPE IN TIME 07/25/2023 10:17 AM ENDO CECUM REACHED 07/25/2023 10:23 AM ENDO SCOPE OUT TIME 07/25/2023 10:27 AM Specimens No specimens collected Procedure Location [address] [id number] Referring Provider Leticia Jauregui DO Procedure Provider Leticia Jauregui DO [facility] Work Phone: [facility] Work Phone: Radiology Study observation (narrative) [facility] Work Phone: L Inj/Asp: R kneeon 07-23-19 lEif Miller APRN-CHIMNEY BUILDER 07/23/2023 4:13 PM L Inj/Asp: R knee on 07/23/2023 4:10 PM Indications: pain and joint swelling Details: 22 G needle, ultrasound-guided superolateral approach Medications: 20 mg sodium hyaluronate 10 mg/mL(mw 2.4 -3.6 million) Outcome: tolerated well, no immediate complications Patient wishes to proceed via verbal consent. Skin was prepped with Betadine, Vapocoolant spray and alcohol. Direct visualization using high-frequency linear probe of ultrasound was utilized to administer the injection of Euflexxa #3/3 to the R knee. Images were saved under MRN number into the PACS system. Bandaid to site post injection, no bleeding. Procedure, treatment alternatives, risks and benefits explained, specific risks discussed. Consent was given by the patient. Immediately prior to procedure a time out was called to verify the correct patient, procedure, equipment, family support coordinator and site/side marked as required. Patient was prepped and draped in the usual sterile fashion. [facility] Work Phone: [facility] Work Phone: US Abdomenon 07-23-2023 These images are not reportable by radiology and will not be interpreted by Radiologists. IMAGING L Inj/Asp: R kneeon 07-16-19 Elif Miller APRN-CHIMNEY BUILDER 07/16/2023 8:57 AM L Inj/Asp: R knee on 07/16/2023 8:56 AM Indications: pain and joint swelling Details: 22 G needle, ultrasound-guided superolateral approach Medications: 20 mg sodium hyaluronate 10 mg/mL(mw 2.4 -3.6 million) Outcome: tolerated well, no immediate complications Patient wishes to proceed via verbal consent. Skin was prepped with Betadine, Vapocoolant spray and alcohol. Direct visualization using high-frequency linear probe of ultrasound was utilized to administer the injection of Euflexxa No. 2/3 to the right knee. Images were saved under MRN number into the PACS system. Bandaid to site post injection, no bleeding. Procedure, treatment alternatives, risks and benefits explained, specific risks discussed. Consent was given by the patient. Immediately prior to procedure a time out was called to verify the correct patient, procedure, equipment, family support coordinator and site/side marked as required. Patient was prepped and draped in the usual sterile fashion. [facility] Work Phone: [facility] Work Phone: Abdomenon 07-16-2023 These images are not reportable by radiology and will not be interpreted by Radiologists. IMAGING L Inj/Asp: R kneeon 07-09-19 Elif Miller, INSTRUMENT LENS GRINDER-CHIMNEY BUILDER 07/09/2023 3:53 PM L Inj/Asp: R knee on 07/09/2023 3:45 PM Indications: pain and joint swelling Details: 22 G needle, ultrasound-guided superolateral approach Medications: 20 mg sodium hyaluronate 10 mg/mL(mw 2.4 -3.6 million) Outcome: tolerated well, no immediate complications Patient wishes to proceed via verbal consent. Skin was prepped with Betadine, Vapocoolant spray and alcohol. Direct visualization using high-frequency linear probe of ultrasound was utilized to administer the injection of Euflexxa No. 1/3. Images were saved under MRN number into the PACS system. Bandaid to site post injection, no bleeding. Procedure, treatment alternatives, risks and benefits explained, specific risks discussed. Consent was given by the patient. Immediately prior to procedure a time out was called to verify the correct patient, procedure, equipment, family support coordinator and site/side marked as required. Patient was prepped and draped in the usual sterile fashion. [facility] Work Phone: [facility] Work Phone: US Abdomenon 07-09-2023 These images are not reportable by radiology and will not be interpreted by Radiologists. IMAGING US Abdomen RUQon 06-23-2023 Cholelithiasis witho ut evidence of acute cholecystitis. Likely fatty infiltrated liver . MACRO: None Signed by: Martir Mcdermott 06/23/2023 2:59 PM Dictation workstation: [id number] JAMAAL Interpreted By: Martir Germain, STUDY: US GALLBLADDER; 06/23/2023 7:24 am INDICATION: Signs/Symptoms:[place] es. COMPARISON: None. ACCESSION NUMBER(S): [id number] ORDERING CLINICIAN: BRIDGER EDOUARD TECHNIQUE: Multiple images of the right upper quadrant were obtained. FINDINGS: LIVER: The liver measures 14.5 cm in longest axis. Also echogenic coarsened liver. GALLBLADDER: The gallbladder is partially distended with multiple gallstones. No gallbladder wall thickening or surrounding fluid. The gallbladder wall thickness is 2.0 mm. Sonographic Lynch's sign is negative. BILE DUCTS: No evidence of intra or extrahepatic biliary dilatation is identified; the common bile duct measures 4.0 mm. PANCREAS: Suboptimal visualization of pancreatic tail. The visualized portions appear unremarkable RIGHT KIDNEY: The right kidney measures 9.5 cm in length. The renal cortical echogenicity and thickness are within normal limit. No hydronephrosis or renal calculi are seen. Martir Lakhani MD - 06/23/2023 Interpreted By: Martir Mcdermott, STUDY: US GALLBLADDER; 06/23/2023 7:24 am INDICATION: Signs/Symptoms:gallston es. COMPARISON: None. ACCESSION NUMBER(S): [id number] ORDERING CLINICIAN: BRIDGER EDOUARD TECHNIQUE: Multiple images of the right upper quadrant were obtained. FINDINGS: LIVER: The liver measures 14.5 cm in longest axis. Also echogenic coarsened liver. GALLBLADDER: The gallbladder is partially distended with multiple gallstones. No gallbladder wall thickening or surrounding fluid. The gallbladder wall thickness is 2.0 mm. Sonographic Lynch's sign is negative. BILE DUCTS: No evidence of intra or extrahepatic biliary dilatation is identified; the common bile duct measures 4.0 mm. PANCREAS: Suboptimal visualization of pancreatic tail. The visualized portions appear unremarkable RIGHT KIDNEY: The right kidney measures 9.5 cm in length. The renal cortical echogenicity and thickness are within normal limit. No hydronephrosis or renal calculi are seen. IMPRESSION: Cholelithiasis without evidence of acute cholecystitis. Likely fatty infiltrated liver . MACRO: None Signed by: Martir Mcdermott 06/23/2023 2:59 PM Dictation workstation: [id number] [facility] Work Phone: Radiology Study observation (narrative) [facility] Work Phone: US Abdomen RUQOrdered By: Jd Mcdermott on 06-23-2023 [facility] Work Phone: US GALLBLADDERon 06-23-2023 US GALLBLADDER Interpreted By: Martir Germain, STUDY: US GALLBLADDER; 06/23/2023 7:24 am INDICATION: Signs/Symptoms:gallston es. COMPARISON: None. ACCESSION NUMBER(S): [id number] ORDERING CLINICIAN: BRIDGER EDOUARD TECHNIQUE: Multiple images of the right upper quadrant were obtained. FINDINGS: LIVER: The liver measures 14.5 cm in longest axis. Also echogenic coarsened liver. GALLBLADDER: The gallbladder is partially distended with multiple gallstones. No gallbladder wall thickening or surrounding fluid. The gallbladder wall thickness is 2.0 mm. Sonographic Lynch's sign is negative. BILE DUCTS: No evidence of intra or extrahepatic biliary dilatation is identified; the common bile duct measures 4.0 mm. PANCREAS: Suboptimal visualization of pancreatic tail. The visualized portions appear unremarkable RIGHT KIDNEY: The right kidney measures 9.5 cm in length. The renal cortical echogenicity and thickness are within normal limit. No hydronephrosis or renal calculi are seen. IMPRESSION: Cholelithiasis without evidence of acute cholecystitis. Likely fatty infiltrated liver . MACRO: None Signed by: Martir Mcdermott 06/23/2023 2:59 PM Dictation workstation: [id number] [facility] Qualitative QuantiFERON-TB g old in tube testOrdered By: Maria D Humphrey on 06-09-2023 M. tuberculosis tuberculin stim IFN-g Ql (Bld) 0.03 IU/mL . [facility] Thin prep Papanicolaou smear with manual screeningOrdered By: Maria D Humphrey on 06-09-2023 Thin prep Papanicolaou smear with manual screening Comment . [facility] Comment on above: QuantiFERON-TB Gold Plus is a qualitative indirect test forM tuberculosis infection (including disease) and isintended for use in conjunction with risk assessment,radiography, and other medical and diagnostic evaluations.The QuantiFERON-TB Gold Plus result is determined bysubtracting the Nil value from either TB antigen (Ag)value. The Mitogen tube serves as a control for the test. Thin prep Papanicolaou smear with manual screening 0.02 IU/mL . [facility] Thin prep Papanicolaou smear with manual screening > 10.00 IU/mL . [facility] Thin prep Papanicolaou smear with manual screening Negative Negative [facility] Comment on above: No response to M tub erculosis antigens detected.Infection with M tuberculosis is unlikely, but high riskindividuals should be considered for additional testing(ATS/IDSA/CDC Clinical Practice Guidelines, 2017). Thereference range is an Antigen minus Nil result of <0.35IU/mL.The specimen received for QuantiFERON testing was incubatedby the ordering institution. Specific procedures outlinedin our Directory of Services and in the package insert forthe QuantiFERON Gold (In Tube) test must be followed toenable for proper stimulation of cells for the productionof interferon gamma. Chemiluminescence immunoassaymethodologyPerformed at: [email or web address] [place], [place] [id number] Director: Thomas Zamora PhD, Phone: [phone] CT Chest WO contraston 02-13 No evidence of pneumonia. Stable bilateral pulmonary nodules. Cholelithiasis. MACRO: None Signed by: Rodney Cabrera 02/13/2023 2:25 AM Dictation workstation: [id number] MMODAL Interpreted By: Rodney Cabrera, STUDY: CT CHEST WO IV CONTRAST; 02/13/2023 1:52 am INDICATION: Signs/Symptoms:pneumoni a. COMPARISON: 12/30/2015 ACCESSION NUMBER(S): [id number] ORDERING CLINICIAN: JAYLIN AYALA TECHNIQUE: Contiguous axial images of the chest were obtained without intravenous contrast. Coronal and sagittal reformatted images were obtained from the axial images. FINDINGS: The examination is limited secondary to lack of intravenous contrast. No axillary or mediastinal lymphadenopathy. There is limited evaluation for hilar lymphadenopathy on noncontrast examination. The heart is normal in size. Coronary artery atherosclerotic calcifications. No significant pericardial effusion. There are several stable bilateral pulmonary nodules. Stable 5 mm pulmonary nodule in the right upper lobe posteriorly. Stable 5 mm pulmonary nodule along the right major fissure. Stable 4 mm pulmonary nodule along the left major fissure in the left upper lung. No evidence of pneumonia. No pleural effusion. No pneumothorax. Small hiatal hernia. Limited evaluation the upper abdomen. Cholelithiasis. Multilevel degenerative change of the thoracic spine. MMODAL Rodney Cabrera MD - 02/13/2023 Interpreted By: Rodney Cabrera, STUDY: CT CHEST WO IV CONTRAST; 02/13/2023 1:52 am INDICATION: Signs/Symptoms:pneumoni a. COMPARISON: 12/30/2015 ACCESSION NUMBER(S): [id number] ORDERING CLINICIAN: JAYLIN AYALA TECHNIQUE: Contiguous axial images of the chest were obtained without intravenous contrast. Coronal and sagittal reformatted images were obtained from the axial images. FINDINGS: The examination is limited secondary to lack of intravenous contrast. No axillary or mediastinal lymphadenopathy. There is limited evaluation for hilar lymphadenopathy on noncontrast examination. The heart is normal in size. Coronary artery atherosclerotic calcifications. No significant pericardial effusion. There are several stable bilateral pulmonary nodules. Stable 5 mm pulmonary nodule in the right upper lobe posteriorly. Stable 5 mm pulmonary nodule along the right major fissure. Stable 4 mm pulmonary nodule along the left major fissure in the left upper lung. No evidence of pneumonia. No pleural effusion. No pneumothorax. Small hiatal hernia. Limited evaluation the upper abdomen. Cholelithiasis. Multilevel degenerative change of the thoracic spine. IMPRESSION: No evidence of pneumonia. Stable bilateral pulmonary nodules. Cholelithiasis. MACRO: None Signed by: Rodney Cabrera 02/13/2023 2:25 AM Dictation workstation: [id number] [facility] Work Phone: Radiology Study observation (narrative) [facility] Work Phone: CT Chest WO contrastOrdered By: Rodney Cabrera on 02-13-2023 [facility] Work Phone: XR Chest 2 Viewson 1. No acute cardiopulmonary process. 2. Unchanged right upper lobe pulmonary nodule. Signed by: Merlin Tapia 02/13/2023 12:25 AM Dictation workstation: [id number] [facility] MM[facility]AL Interpreted By: Merlin Tapia, STUDY: XR CHEST 2 VIEWS; 02/12/2023 11:42 pm INDICATION: Signs/Symptoms:pneumoni a. COMPARISON: 07/21/2017, 12/30/2015 ACCESSION NUMBER(S): [id number] ORDERING CLINICIAN: JAYLIN AYALA FINDINGS: No consolidation, pleural effusion, or pneumothorax. Normal heart size. 0.8 cm pulmonary nodule projected over the lateral right upper lobe appears similar to 12/27/2015. Mild spinal degenerative change. [facility] MMODAL Merlin Tapia, DO - 02/13/2023 Interpreted By: Merlin Tapia, STUDY: XR CHEST 2 VIEWS; 02/12/2023 11:42 pm INDICATION: Signs/Symptoms:pneumoni a. COMPARISON: 07/21/2017, 12/30/2015 ACCESSION NUMBER(S): [id number] ORDERING CLINICIAN: JAYLIN AYALA FINDINGS: No consolidation, pleural effusion, or pneumothorax. Normal heart size. 0.8 cm pulmonary nodule projected over the lateral right upper lobe appears similar to 12/27/2015. Mild spinal degenerative change. IMPRESSION: 1. No acute cardiopulmonary process. 2. Unchanged right upper lobe pulmonary nodule. Signed by: Merlin Tapia 02/13/2023 12:25 AM Dictation workstation: [id number] [facility] Work Phone: XR Chest 2 ViewsOrdered By: Merlin Tpaia on 02-13-2023 [facility] Work Phone: ECG 12-LEADon 02-12-2023 ECG 12-LEAD Ventricular Rate 75 Atrial Rate 75 P-R Interval 186 QRS Duration 80 Q-T Interval 368 QTC Calculation(Bazett) 410 P Hettick 43 R Hettick 40 T Hettick 12 QRS Count 12 Q Onset 219 P Onset 126 P Offset 182 T Offset 403 QTC Fredericia 396 Diagnosis Normal sinus rhythm Nonspecific T wave abnormality Abnormal ECG No previous ECGs available See ED provider note for full interpretation and clinical correlation Confirmed by Pete Jaramillo ([id number]) on 02/13/2023 11:09:26 AM Normal [facility] XR Chest 2 Viewson Radiology Study observation (narrative) [facility] Work Phone: FLUAV and FLUBV RNA AHMET+prob e Nom (Unsp spec)on 02-08-2023 FLUAV RNA AHMET+probe Ql (Resp) Not detected Not Detected [facility] FLUBV RNA AHMET+probe Ql (Resp) Not detected Not Detected [facility] This assay is an in vitro diagnostic multiplex nucleic acid amplification test for the detection and discrimination of Influenza A & B from nasopharyngeal specimens, and has been validated for use at [facility]. Negative results do not preclude Influenza A/B infections, and should not be used as the sole basis for diagnosis, treatment, or other management decisions. If Influenza A/B and RSV PCR results are negative, testing for Parainfluenza virus, Adenovirus and Metapneumovirus is routinely performed for [facility] pediatric oncology and intensive care inpatients, and is available on other patients by placing an add-on request. [facility] No Panel Informationon 02-08 Interpretation and review of laboratory results Normal [facility] RSV PCRon 02-08-2023 RSV RNA AHMET+probe Ql (Resp) Not detected Not Detected [facility] RSV RNA AHMET+probe Ql (Resp)o n 02-08-2023 This assay is an FDA-cleared, in vitro diagnostic nucleic acid amplification test for the detection of RSV from nasopharyngeal specimens, and has been validated for use at [facility]. Negative results do not preclude RSV infections, and should not be used as the sole basis for diagnosis, treatment, or other management decisions. If Influenza A/B and RSV PCR results are negative, testing for Parainfluenza virus, Adenovirus and Metapneumovirus is routinely performed for pediatric oncology and intensive care inpatients at [facility], and is available on other patients by placing an add-on request. [facility] SARS-CoV-2 (COVID-19) RNA NA A+probe Ql (Resp)on 02-08-2023 This assay has recei carola FDA Emergency Use Authorization (EUA) and is only authorized for the duration of time that circumstances exist to justify the authorization of the emergency use of in vitro diagnostic tests for the detection of SARS-CoV-2 virus and/or diagnosis of COVID-19 infection under section 564(b)(1) of the Act, 21 U.S.C. 360bbb-3(b)(1). This assay is an in vitro diagnostic nucleic acid amplification test for the qualitative detection of SARS-CoV-2 from nasopharyngeal specimens and has been validated for use at [facility]. Negative results do not preclude COVID-19 infections and should not be used as the sole basis for diagnosis, treatment, or other management decisions. [facility] Sars-CoV-2 PCR, Screen Asymp tomaticon 02-08-2023 SARS-CoV-2 (COVID-19) RNA AHMET+probe Ql (Resp) Not detected Not Detected [facility] L Inj/Asp: R kneeon 01-18-20 23 Abram Montes MD 01/17/2023 9:12 AM L Inj/Asp: R knee on 01/17/2023 9:11 AM Indications: pain Details: 21 G needle, anterolateral approach Medications: 1 mL lidocaine 10 mg/mL (1 %); 1 mg betamethasone acet,sod phos 6 mg/mL Outcome: tolerated well, no immediate complications Procedure, treatment alternatives, risks and benefits explained, specific risks discussed. Consent was given by the patient. Immediately prior to procedure a time out was called to verify the correct patient, procedure, equipment, family support coordinator and site/side marked as required. Patient was prepped and draped in the usual sterile fashion. [facility] Work Phone: [facility] Work Phone: Mamm - Screening Mammogram w / Tomosynthesison 11-04-2022 MG Breast Screening [facility] [address] Work Phone: Established Visit (Orthopaed ic Surgery)on 10-30-2022 Established Visit (Orthopaedic Surgery) Orders Right knee pain Start: Naproxen 500 MG Oral Tablet; TAKE 1 TABLET EVERY 12 HOURS NEEDED Chief Complaint FUV RIGHT KNEE PAIN PAIN: 2/10 NAPROXEN NEEDED History of Present Illness History of Present Illness 47-year-old female with history of moderate to severe right knee arthritis presents today for repeat evaluation and discussion. Currently states that she is a 2 or 3 out of pain last visit I did recommend that we proceed with hyaluronic acid injection however her insurance company denied this request. Patient has attempted many forms of injections in the past and cortisone injections have not provided her any relief was hoping to do this as she is only 47 years old and would likely benefit her. Review of Systems GENERAL: Negative for malaise, significant weight loss, fever MUSCULOSKELETAL: see HPI NEURO: Negative Physical Exam General: No acute distress, alert and oriented x3 Right knee: Skin healthy and intact No gross swelling or ecchymosis Alignment: Varus Effusion: Mild ROM: 10-1 10 Crepitance with range of motion No pain with internal rotation of the hip Tenderness to palpation: Medial joint line No laxity to valgus stress No laxity to varus stress Negative Lachmans test Negative posterior drawer test Mild pain with McMurrays test Neurovascular exam normal distally 2+ DP pulse and good cap refill Imaging None today Assessment 47-year-old female with moderate severe right knee arthritis Plan Discussed ultimate treatment for knee arthritis would be a total knee replacement patient is not interested in this at this point time of her life Discussed importance of low impact exercise activities and the importance of weight loss in hopes of offloading the knee joint. We will give patient prescription for naproxen to provide her some pain relief in the meantime Regarding bracing okay for supportive braces however due to body habitus I do think that these may be difficult to wear Weight-bear as tolerated activities as tolerated using pain as a guide. Follow-up as needed We did discuss the use of diagnostic knee arthroscopy, partial meniscectomy and debridement. Discussed that given patient's findings of moderate to severe arthritis in the knee I do not think that this will help her all that much and then a total knee replacement would likely be the best procedure for her. Discussed the importance of weight loss and help offloading the knee. Follow-up as needed . Active Problems Problems Abnormal mammogram (793.80) (R92.8) Acute maxillary sinusitis (461.0) (J01.00) Acute sinusitis (461.9) (J01.90) Allergic rhinitis (477.9) (J30.9) Arthritis of knee (716.96) (M17.10) Arthritis of knee, right (716.96) (M17.11) Asthma (493.90) (J45.909) Cough (786.2) (R05.9) Depression (311) (F32.A) Encounter for Papanicolaou smear of vagina (V76.47) (Z12.72) Encounter for screening mammogram for breast cancer (V76.12) (Z12.31) Encounter for screening mammogram for malignant neoplasm of breast (V76.12) (Z12.31) Hyperlipidemia (272.4) (E78.5) Incontinence in female (625.6) (R32) Menorrhagia (626.2) (N92.0) Migraines (346.90) (G43.909) Nocturia (788.43) (R35.1) Nodule of right lung (793.11) (R91.1) Obesity (278.00) (E66.9) Perimenopause (627.2) (N95.1) Right knee pain (719.46) (M25.561) URI (upper respiratory infection) (465.9) (J06.9) Urinary incontinence (788.30) (R32) Vaginal Papanicolaou smear (V76.47) (Z12.72) Women's annual routine gynecological examination (V72.31) (Z01.419) Yeast infection of the vagina (112.1) (B37.31) Past Medical History Problems History of Delivery of by section (669.70) (O82) 2003 2007 History of (V13.29) (Z87.59) 1989 History of mammogram (V15.89) (Z92.89) 09/27/2020-WNL 09/10/2018 History of skin cancer (V10.83) (Z85.828) 07/2021 History of Menstruation Onset age 11 years History of Pap test, as part of routine gynecological examination (V76.2) (Z01.419) 09/27/2022: Negative 09/17/2021: CoTest Negative 09/14/2019: Negative History of Women's annual routine gynecological examination (V72.31) (Z01.419) Resolved Date: 15 Sep 2020 Surgical History Problems History of section 2003 2007 History of Dilation and evacuation History of Endometrial ablation 06/12/2017 12/25/2017 History of Endometrial biopsy 05/20/2017 History of Foot surgery 08/17/2013: Right 02/23/2014: Left History of Laparoscopy 1989 History of Skin lesion excision 07/2021: MOHS procedure on right side of face due to skin cancer. History of Total hysterectomy abdominal 07/02/2018 Family History Mother No pertinent family history Father Family history of hyperlipidemia (V18.19) (Z83.438) Family history of myocardial infarction (V17.3) (Z82.49) x2 Paternal Grandmother Family history of malignant neoplasm of breast (V16.3) (Z80.3) Social His (more content not included)... 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 : Annual Screening Mammogram Provider Impressions 1. Annual 2. Screening mammogram Follow-up in 1 year or as needed. Chief Complaint Patient is here for her yearly exam and pap test. Hysterectomy in 2019. Patient does self breast exams and has no concerns at this time. History of Present IllnessPresents for annual exam. She voices no complaints and is doing well. Denies any bowel or bladder problems. Denies any breast problems. She had previous hysterectomy. Review of Systems Review of Systems: Constitutional: No fever or chills Respiratory: No shortness of breath, or cough Cardiovascular: No chest pain or syncope Breasts: No breast pain, no masses, no nipple discharge Gastrointestinal: No nausea, vomiting, or diarrhea, no abdominal pain Genitourinary: No dysuria or frequency Gynecology: Negative except as noted in history of present illness All other: All other systems reviewed and negative for complaint Active Problems Problems Abnormal mammogram (793.80) (R92.8) Acute maxillary sinusitis (461.0) (J01.00) Acute sinusitis (461.9) (J01.90) Allergic rhinitis (477.9) (J30.9) Arthritis of knee (716.96) (M17.10) Arthritis of knee, right (716.96) (M17.11) Asthma (493.90) (J45.909) Cough (786.2) (R05.9) Depression (311) (F32.A) Encounter for Papanicolaou smear of vagina (V76.47) (Z12.72) Encounter for screening mammogram for breast cancer (V76.12) (Z12.31) Encounter for screening mammogram for malignant neoplasm of breast (V76.12) (Z12.31) Hyperlipidemia (272.4) (E78.5) Incontinence in female (625.6) (R32) Menorrhagia (626.2) (N92.0) Migraines (346.90) (G43.909) Nocturia (788.43) (R35.1) Nodule of right lung (793.11) (R91.1) Obesity (278.00) (E66.9) Perimenopause (627.2) (N95.1) Right knee pain (719.46) (M25.561) URI (upper respiratory infection) (465.9) (J06.9) Urinary incontinence (788.30) (R32) Vaginal Papanicolaou smear (V76.47) (Z12.72) Women's annual routine gynecological examination (V72.31) (Z01.419) Yeast infection of the vagina (112.1) (B37.31) Past Medical History Problems History of Delivery of by section (669.70) (O82) 2003 2007 History of (V13.29) (Z87.59) 1989 History of mammogram (V15.89) (Z92.89) 09/27/2020-WNL 09/10/2018 History of skin cancer (V10.83) (Z85.828) 07/2021 History of Menstruation Onset age 11 years History of Pap test, as part of routine gynecological examination (V76.2) (Z01.419) 09/17/2021: CoTest Negative 09/14/2019: Negative History of Women's annual routine gynecological examination (V72.31) (Z01.419) Resolved Date: 15 Sep 2020 Surgical History Problems History of section 2003 2007 History of Dilation and evacuation History of Endometrial ablation 06/12/2017 12/25/2017 History of Endometrial biopsy 05/20/2017 History of Foot surgery 08/17/2013: Right 02/23/2014: Left History of Laparoscopy 1989 History of Skin lesion excision 07/2021: MOHS procedure on right side of face due to skin cancer. History of Total hysterectomy abdominal 07/02/2018 Family History Mother No pertinent family history Father Family history of hyperlipidemia (V18.19) (Z83.438) Family history of myocardial infarction (V17.3) (Z82.49) x2 Paternal Grandmother Family history of malignant neoplasm of breast (V16.3) (Z80.3) Social History Problems Former smoker (V15.82) (Z87.891) No advance directives (V49.89) (Z78.9) No recent foreign travel Sexually active Allergies Medication sulfa Tachycardia; Recorded By: Afshan Aguillon; 02/18/2019 9:49:56 AM NonMedication Nickel Rash; Recorded By: Edwina Palma; 07/01/2019 10:50:39 AM Current Meds Medication NameInstruction BD TB Syringe 27G X 1/2 1 MLUSE 2 SYRINGES ONCE A WEEK DIRECTED Claritin CAPS Diclofenac Sodium 1 % External GelApply to affected area up to 4 times daily 2 grams. Diclofenac Sodium 50 MG Oral Tablet Delayed ReleaseTake one tablet twice daily with food or snack as needed for pain and inflammation Naproxen 500 MG Oral TabletTAKE 1 TABLET Every twelve hours Nurtec 75 MG Oral Tablet DisintegratingTAKE 1 TABLET BY MOUTH NEEDED FOR MIGRAINE. NOT MORE THAN 1 A DAY OR 2 A WEEK Sertraline HCl - 100 MG Oral Tablettake 1 tablet by (more content not included)... Normal [facility] Tobacco Screening.on Adult depression screening assessment No [facility] Phone: [phone] Fall risk assessment a) No falls within the last year [facility] Phone: [phone] Last menstrual period start date 2018 [facility] [employer] Phone: [phone] Tobacco use status [facility] b) No W [facility] [place] Insurance Phone: [phone] Established Visit (Orthopaed ic Surgery)on 08-28-2022 Established Visit (Orthopaedic Surgery) Diagnoses/Problems Assessed Right knee pain (719.46) (M25.561) Orders Right knee pain Start: Naproxen 500 MG Oral Tablet; TAKE 1 TABLET Every twelve hours Chief Complaint F/U R KNEE PAIN PAIN 4 on a good day usually gets up to a 10 Tylenol and Motrin No Ice or Heat No brace History of Present Illness History of Present Illness Patient presents with right knee pain for several years. The patient localizes the pain diffusely. There is increasing difficulty with activities of daily living and significant disability related to the knee pain. The patient endorses the following failed non-operative treatments: Injections, activity modifications. There is increasing frustration with persistent pain and swelling and decreasing distance of ambulation. Pain is moderate, achy, diffuse. Better with rest, worse with activity. Patient has had steroid injections in the past which have provided short course of relief. Presents today and hoping of getting approval for gel injection. Review of Systems GENERAL: Negative for malaise, significant weight loss, fever MUSCULOSKELETAL: see HPI NEURO: Negative Exam Right knee: Skin healthy and intact No gross swelling or ecchymosis Alignment: Mild varus effusion: Mild ROM: 5 to 110 degrees Crepitance with range of motion No pain with internal rotation of the hip Tenderness to palpation over medial and lateral joint line and with patellar compression No laxity to valgus stress No laxity to varus stress Negative Lachmans test Negative posterior drawer test Mild pain with McMurrays test Neurovascular exam normal distally 2+ DP pulse and good cap refill Radiographs My interpretation as follows: Right knee severe varus degenerative joint disease with loss of joint space, subchondral sclerosis and cystic changes, and osteophyte formation Assessment Patient with right severe knee osteoarthritis Plan We discussed with the patient the diagnosis of degenerative joint disease of the knee. We reviewed an evidence-based approach to osteoarthritis of the knee. We strongly encouraged low-impact aerobic activity and non-opioid analgesics. We discussed temporary pain relief with corticosteroid injections and the associated risks. We also discussed the conflicting evidence regarding viscosupplementation and potential long-term risks with NSAIDs. We reviewed the role of bracing for instability and physical therapy for atrophy and gait abnormalities. The patient elected for gel injection today Patient has failed activity modifications bracing as well as cortisone injections I recommend that we proceed with a hyaluronic injection into the knee to provide some pain relief. We will get this precertified she will return to clinic for injection of this. If she fails to improve with gel injection therapy may also consider a medial desktop engineer brace as well. As she is only 47 years old I do want to wait to proceed with total knee arthroplasty if at all possible. She agrees with this. *Active Problems Problems Abnormal mammogram (793.80) (R92.8) Acute maxillary sinusitis (461.0) (J01.00) Acute sinusitis (461.9) (J01.90) Allergic rhinitis (477.9) (J30.9) Arthritis of knee (716.96) (M17.10) Arthritis of knee, right (716.96) (M17.11) Asthma (493.90) (J45.909) Cough (786.2) (R05.9) Depression (311) (F32.A) Encounter for Papanicolaou smear of vagina (V76.47) (Z12.72) Encounter for screening mammogram for breast cancer (V76.12) (Z12.31) Encounter for screening mammogram for malignant neoplasm of breast (V76.12) (Z12.31) Hyperlipidemia (272.4) (E78.5) Incontinence in female (625.6) (R32) Menorrhagia (626.2) (N92.0) Migraines (346.90) (G43.909) Nocturia (788.43) (R35.1) Nodule of right lung (793.11) (R91.1) Obesity (278.00) (E66.9) Perimenopause (627.2) (N95.1) URI (upper respiratory infection) (465.9) (J06.9) Urinary incontinence (788.30) (R32) Vaginal Papanicolaou smear (V76.47) (Z12.72) Women's annual routine gynecological examination (V72.31) (Z01.419) Yeast infection of the vagina (112.1) (B37.31) Right knee pain (719.46) (M25.561) Past Medical History Problems History of Delivery of by section (669.70) (O82) 2003 2007 History of (V13.29) (Z87.59) 1989 History of mammogram (V15.89) (Z92.89) 09/27/2020-WNL 09/10/2018 History of skin cancer (V10.83) (Z85.828) 07/2021 History of Menstruation Onset age 11 years History of Pap test, as part of routine gynecological examination (V76.2) (Z01.419) 09/17/2021: CoTest Negative 09/14/2019: Negative History of Women's annual routine gynecological examination (V72.31) (Z01.419) Resolved Date: 15 Sep 2020 Surgical History Problems History of section 2003 2007 History of Dilation and evacuation History of Endometrial ablation 06/12/2017 12/25/2017 History of Endometrial biopsy 05/20/2017 History of Foot surgery 7/ (more content not included)... Normal [facility]works KNEE 3 VIEWSon 08-28-2022 KNEE 3 VIEWS Patient Name: SURAJ HAWK STUDY: KNEE; 3 VIEWS; 08/28/2022 9:20 am INDICATION: PAIN M25.561: Right knee pain. COMPARISON: 01/31/2022 ACCESSION NUMBER(S): [id number] ORDERING CLINICIAN: KINGSLEY BLUM FINDINGS: Three views of the right knee obtained. No acute fracture or osseous displacement. Medial and lateral patellofemoral compartment narrowing. Tricompartmental degenerative spurring. Small suprapatellar effusion. No definite erosive changes. IMPRESSION: Tricompartmental degenerative changes with small joint effusion. Electronically signed by: RUDI MARTINI MD Normal [facility] Radiologyon 08-28-2022 XR Knee 3 Views Please click on the link to view the study images Normal [facility] [place] Work Phone: XR Knee 3 Views Normal [facility] [address] Work Phone: Qualitative QuantiFERON-TB g old in tube testOrdered By: Dr. Humphrey on 06-10-2022 M. tuberculosis tuberculin stim IFN-g Ql (Bld) 0.02 IU/mL . [facility] Thin prep Papanicolaou smear with manual screeningOrdered By: Dr. Humphrey on 06-10-2022 Thin prep Papanicolaou smear with manual screening Comment . [facility] Comment on above: QuantiFERON-TB Gold Plus is a qualitative indirect test forM tuberculosis infection (including disease) and isintended for use in conjunction with risk assessment,radiography, and other medical and diagnostic evaluations.The QuantiFERON-TB Gold Plus result is determined bysubtracting the Nil value from either TB antigen (Ag)value. The Mitogen tube serves as a control for the test. Thin prep Papanicolaou smear with manual screening 0.02 IU/mL . [facility] Thin prep Papanicolaou smear with manual screening 0.01 IU/mL . [facility] Thin prep Papanicolaou smear with manual screening > 10.00 IU/mL . [facility] Thin prep Papanicolaou smear with manual screening Negative Negative [facility] Comment on above: No response to M tub erculosis antigens detected.Infection with M tuberculosis is unlikely, but high riskindividuals should be considered for additional testing(ATS/IDSA/CDC Clinical Practice Guidelines, 2017). Thereference range is an Antigen minus Nil result of <0.35IU/mL.The specimen received for QuantiFERON testing was incubatedby the ordering institution. Specific procedures outlinedin our Directory of Services and in the package insert forthe QuantiFERON Gold (In Tube) test must be followed toenable for proper stimulation of cells for the productionof interferon gamma. Chemiluminescence immunoassaymethodologyPerformed at: [facility] [address] [id number] Director: Thomas Zamora PhD, Phone: [phone] Established Visit (Orthopaed ic Surgery)on 05-27-2022 Established Visit (Orthopaedic Surgery) Diagnoses/Problems Assessed Arthritis of knee, right (716.96) (M17.11) Orders Arthritis of knee, right Start: Diclofenac Sodium 50 MG Oral Tablet Delayed Release; Take one tablet twice daily with food or snack as needed for pain and inflammation Administer: Triamcinolone Acetonide 40 MG/ML Injection Suspension; INJECT 1 ML Intra-articular; To Be Done: [id number] Patient Discussion/Summary Cortisone provided at today's visit to try to alleviate symptoms. Reviewed use of braces or wraps and home exercises for symptom conrol. Gel injections were denied by her insurance company. Multiple conservative measures have been attempted to date and cortisone is becoming less effective over time. At this time, I do recommend she talks with one of our surgeons regarding possibility of knee replacement surgery. Patient states she would ideally wait till a later time to consider this. I also discussed ideally we get patient today 60 before joint replacement surgeries. I do feel it would be beneficial to have a surgical consult to discuss neck steps options which she is in agreement with plan of care. Plan will be to follow-up here in 3 months with one of our surgeons, sooner for changes or concerns. This note was generated using Zoodles software. It may contain errors in wording, punctuation or spelling. Provider Impressions R knee OA, sx progressively worse with increased activity Chief Complaint Patient is being seen today for right pain. She is doing home therapy exercises. She had a cortisone 02/20/2022 History of Present Illness Sx same No agg HEP helps a bit Keeping awake at night, Tylenol, ibuprofen not helping Occas sharp shooting pain ,resolves on own. Never pain free Cortisone helped for a few weeks Feb 2022 Gel denied by insurance Diclofenac gel didn't work . Review of Systems Constitutional: no fever, no chills and not feeling tired. ENT: no recent cough or URI sx, no nosebleeds. Cardiovascular: no chest pain. Respiratory: no shortness of breath and no cough. Gastrointestinal: no abdominal pain, no nausea, no vomiting and no diarrhea. Integumentary: no rashes or skin wounds. Neurological: no headache. Psychiatric: no depression and no sleep disturbances. Endocrine: no muscle weakness and no muscle cramps. Hematologic/Lymphatic: no swollen glands and no tendency for easy bruising. All other systems have been reviewed and are negative other than noted in HPI. Active Problems Problems Abnormal mammogram (793.80) (R92.8) Acute maxillary sinusitis (461.0) (J01.00) Acute sinusitis (461.9) (J01.90) Allergic rhinitis (477.9) (J30.9) Arthritis of knee (716.96) (M17.10) Arthritis of knee, right (716.96) (M17.11) Asthma (493.90) (J45.909) Cough (786.2) (R05.9) Depression (311) (F32.A) Encounter for Papanicolaou smear of vagina (V76.47) (Z12.72) Encounter for screening mammogram for breast cancer (V76.12) (Z12.31) Encounter for screening mammogram for malignant neoplasm of breast (V76.12) (Z12.31) Hyperlipidemia (272.4) (E78.5) Incontinence in female (625.6) (R32) Menorrhagia (626.2) (N92.0) Migraines (346.90) (G43.909) Nocturia (788.43) (R35.1) Nodule of right lung (793.11) (R91.1) Obesity (278.00) (E66.9) Perimenopause (627.2) (N95.1) Right knee pain (719.46) (M25.561) URI (upper respiratory infection) (465.9) (J06.9) Urinary incontinence (788.30) (R32) Vaginal Papanicolaou smear (V76.47) (Z12.72) Women's annual routine gynecological examination (V72.31) (Z01.419) Yeast infection of the vagina (112.1) (B37.31) Past Medical History Problems History of Delivery of by section (669.70) (O82) 2003 2007 History of (V13.29) (Z87.59) 1989 History of mammogram (V15.89) (Z92.89) 09/27/2020-WNL 09/10/2018 History of skin cancer (V10.83) (Z85.828) 07/2021 History of Menstruation Onset age 11 years History of Pap test, as part of routine gynecological examination (V76.2) (Z01.419) 09/17/2021: CoTest Negative 09/14/2019: Negative History of Women's annual routine gynecological examination (V72.31) (Z01.419) Resolved Date: 15 Sep 2020 Surgical History Problems History of section 2003 2007 History of Dilation and evacuation History of Endometrial ablation 06/12/2017 12/25/2017 History of Endometrial biopsy 05/20/2017 History of Foot surgery 08/17/2013: Right 02/23/2014: Left History of Laparoscopy 1989 History of Skin lesion excision 07/2021: MOHS procedure on right side of face due to skin cancer. History of Total hysterectomy abdominal 07/02/2018 Family History Mother No pertinent family history Father Family history of hyperlipidemia (V18.19) (Z83.438) Family history of myocardial infarction (V17.3) (Z82.49) x2 Paternal Grandmother Family history of malignant neoplasm of breast (V16.3) (Z80.3) Social History Problems Former smoker (V15.82) (Z87.891) No advance dire (more content not included)... Normal [facility] Tobacco Screening.on 023 Fall risk assessment a) No falls within the last year [facility] [address] Work Phone: [phone] Tobacco use status [facility] b) No M [facility] [address] Work Phone: [phone] Established Visit (Orthopaed ic Surgery)on 04-08-2022 Established Visit (Orthopaedic Surgery) Diagnoses/Problems Assessed Arthritis of knee, right (716.96) (M17.11) Patient Discussion/Summary Patient is doing home exercises and tolerating well. Patient's symptoms have returned to near where she sought initial evaluation with her PCP. We discussed wraps and bracing options, CEMENT SIDE LASTER and to try OA reaction brace which did not offer good fit and support. Also offered hinged knee brace and pull-through light, none of these with good fit for support. We discussed risk and benefits of viscosupplementation, patient information sheet provided at time of DC. At this time, I will request from her insurance company to pursue a round of these injections, we discussed that once a week dosing for 3 weeks. Plan will be to follow here once injections are approved for administration. Patient in agreement with plan of care. We did discuss remote possibility of knee replacement, ideal to hold off as long as possible. Patient is in agreement with seeking conservative measures for symptom control. This note was generated using Zoodles software. It may contain errors in wording, punctuation or spelling. Provider Impressions Patient with right knee arthritis, very short-term effect with cortisone injection. Patient is doing home exercises and tolerating well. Patient's symptoms have returned to near where she sought initial evaluation with her PCP. We discussed Rapson bracing, CEMENT SIDE LASTER and to try OA reaction brace which did not offer good fit and support. Chief Complaint PATIENT IS BEING SEEN TODAY FOR FUV REGARDING RIGHT KNEE ARTHRITIS. PATIENT DID GO TO THERAPY AND THEY GAVE HER H.E.P. INSTRUCTIONS. SHE HAS BEEN FOLLOWING THEM DIRECTED. SHE STATES HER PAIN IS 2/10 AT REST, AFTER WALKING OR STANDING FOR A WHILE SHE RATES IT A 7/10. SHE STATES SHE TAKES IBUPROFEN AND TYLENOL SHE DID HAVE AN INJECTION OF CORTISONE 02/20/2022. History of Present Illness Edwina is a pleasant 46-year-old female presenting for follow-up of right knee pain and arthritis. Patient was seen for initial visit 6 weeks ago with KATHY Antoine and is new to me today. Patient to get a cortisone shot which she states helped for about 2 weeks and it has returned to baseline. She is unable to identify worsening or improving factors. She rotates Tylenol and ibuprofen for symptom control which do help some, she ends up taking something at least once a day. She went to PT evaluation and 1 visit date instructed on home exercises and did not see a need to continue. Patient continues to do the home exercise as instructed. Patient has used Voltaren gel multiple attempts over period of time and does not notice any pain relief. She is not using any bracing or wraps. Review of Systems Constitutional: no fever, no chills and not feeling tired. ENT: no recent cough or URI sx, no nosebleeds. Cardiovascular: no chest pain. Respiratory: no shortness of breath and no cough. Gastrointestinal: no abdominal pain, no nausea, no vomiting and no diarrhea. Integumentary: no rashes or skin wounds. Neurological: no headache. Psychiatric: no depression and no sleep disturbances. Endocrine: no muscle weakness and no muscle cramps. Hematologic/Lymphatic: no swollen glands and no tendency for easy bruising. All other systems have been reviewed and are negative other than noted in HPI. Active Problems Problems Abnormal mammogram (793.80) (R92.8) Acute maxillary sinusitis (461.0) (J01.00) Acute sinusitis (461.9) (J01.90) Allergic rhinitis (477.9) (J30.9) Arthritis of knee (716.96) (M17.10) Arthritis of knee, right (716.96) (M17.11) Asthma (493.90) (J45.909) Cough (786.2) (R05.9) Depression (311) (F32.A) Encounter for Papanicolaou smear of vagina (V76.47) (Z12.72) Encounter for screening mammogram for breast cancer (V76.12) (Z12.31) Encounter for screening mammogram for malignant neoplasm of breast (V76.12) (Z12.31) Hyperlipidemia (272.4) (E78.5) Incontinence in female (625.6) (R32) Menorrhagia (626.2) (N92.0) Migraines (346.90) (G43.909) Nocturia (788.43) (R35.1) Nodule of right lung (793.11) (R91.1) Obesity (278.00) (E66.9) Perimenopause (627.2) (N95.1) Right knee pain (719.46) (M25.561) URI (upper respiratory infection) (465.9) (J06.9) Urinary incontinence (788.30) (R32) Vaginal Papanicolaou smear (V76.47) (Z12.72) Women's annual routine gynecological examination (V72.31) (Z01.419) Yeast infection of the vagina (112.1) (B37.31) Past Medical History Problems History of Delivery of by section (669.70) (O82) 2003 2007 History of (V13.29) (Z87.59) 1989 History of mammogram (V15.89) (Z92.89) 09/27/2020-WNL 09/10/2018 History of skin cancer (V10.83) (Z85.828) 07/2021 History of Menstruation Onset age 11 years History of Pap test, as part of routine gynecological examination (V76.2) (Z01.419) 09/17/2021: CoTest Negative 09/14/2019: Negative History of Women's annual routine gynecological examination (V72.31) (Z01.419) (more content not included)... Normal [facility] Tobacco Screening.on 023 Fall risk assessment a) No falls within the last year [facility] [address] Work Phone: Tobacco use status [facility] b) No M [facility] [address] Work Phone: PT Initial Evaluationon 02-10 PT Initial Evaluation Therapy Diagnosis Assessed Arthritis of knee, right (716.96) (M17.11) Right knee pain (719.46) (M25.561) Plan of Care Frequency and duration: No further visits planned. Potential to achieve rehab goals is good Plan of care was developed with input and agreement by the patient. Assessment Ms. Hawk arrives to outpatient PT with s/s consistent with c/o R knee pain which has mostly resolved following cortisone injection 02/20/22. Pt with good strength and flexibility of BLE however HEP given for functional strengthening of the BLE. No further visits planned as pt educated to complete HEP 4x/week. Education on depth of squat/ lunge, determining reps to complete based on pain with activity, and expected soreness following evaluation. Pt instructed to call with any worsening of symptoms or questions. Pt with understanding and agreement. Clinical Presentation: Stable and/or uncomplicated characteristics. Level of Complexity: low Problem List: decreased functional level, decreased knowledge of HEP, pain and participation restrictions. Reason For Visit Initial Evaluation . Dx: M17.11. Referred by: Elina Cordova Adult Risk Screening There are no spiritual/cultural practices/values/needs that are important to know Initial Fall Risk Screening: SURAJ has not fallen in the last 6 months. Her fall did not result in injury. SURAJ does not have a fear of falling. She does not need assistance with sitting, standing or walking. Does not need assistance walking in her home. She does not need assistance in an unfamiliar setting. The patient is not using an assistive device. Living Will. Living Will: No living will on file. Healthcare POA: No healthcare proxy on file. Declaration of Mental Health Treatment: No mental health treatment on file. Domestic Violence Screen: Does not feel threatened or abused physically, emotionally or sexually. Do you feel UNSAFE? The patient feels safe in the home. Depression/Suicide Screening: During the past 2 weeks, the patient has not felt down, depressed or hopeless. During the past 2 weeks, the patient has not felt little interest or pleasure in doing things. Insurance Insurance reviewed Visit number: 1 Insurance: [employer] Evaluating therapist: Jyoti Bateman PT, DOROTHY PT dx: M25.561 Subjective Current Episode of Functional Impairment and/or Pain Date of onset: 02/20/22 Mechanism of Injury:. Pt is a 46 y/o F arriving to outpatient PT c/o R knee pain. Pain began 3 months insidiously. Pt denies N/T. Pt had cortisone shot 02/20/22 which has mostly resolved pain. Pt reports pain now occurs with twisting the LE. No pain since shot with long distance ambulation or stairs. No limitation in work or household duties. No previous surgeries or injuries. Medical Screening: Reviewed medical history form with patient and medical screening assessed. asthma, JORDAN, migraine. Current Medical Management:. Patient confirmed name and date of this session. xray 01/31/22: Fairly advanced right knee osteoarthritis worst medially. Precautions: Fall Risk: none Functional Assessment Prior level of function: Pt was previously IND in all ADLs with no restrictions. Patient stated goal(s) for treatment include: relieving pain and increasing mobility . Current Status: improving . since injection. Patient Awareness: Patient is aware of her diagnosis and prognosis. Living Environment: reviewed and no concern. Personal Factors That May Impact Care:. No barriers to learning. Objective Ortho MMT hip R- flex: 5 /5 abd: 5 /5 add: 5 /5 L- flex: 5 /5 abd: 5 /5 add: 5 /5 Bridge 3 reps no pain MMT knee R- flex: 5 /5 ext: 5 /5 L- flex: 5 /5 ext: 5 /5 MMT ankle R- DF: 5 /5 L- DF: 5 /5 AROM knee Equal and WFL B TTP: none Tightness: none of B HS, ITB, gastroc Gait: normalized. Outcome Measures Lower Extremity Functional Scale score: 45/80 Treatment Time in clinic started at 4:05 pm Time in clinic ended at 4:40 pm Total time in clinic is 35 minutes. Total timed code time is 15 minutes. Treatment Performed Today:. Step up + april x5 R Squat x10 Fwd lunge x5 Lat lunge x10 Seated march black TB x10 Seated hip abd black TB x10. Evaluation Code: 87985 PT Eval: Low Complexity, 18 min(s). Timed: 09583 Therapeutic Exercises, 15 min(s), 1 unit(s). Resources provided today: home program (scanned) and education Education Provided: plan of care and home exercise program. Information communicated to patient. 02/28/22 HEP HO given Step up + april Squat Fwd lunge Lat lunge Seated april Seated hip abd. Signatures Electronically signed by : Jyoti Bateman, PT; Feb 28 2022 4:45PM EST (Author) Normal Touchworks Initial Visit (Orthopaedic S ryan)on 02-20-2022 Initial Visit (Orthopaedic Surgery) Diagnoses/Problems Assessed Arthritis of knee, right (716.96) (M17.11) Orders Arthritis of knee, right Administered: Triamcinolone Acetonide 40 MG/ML Injection Suspension Physical Therapy - General Referral Evaluation and Treatment Evaluate AND Treat Status: Hold For - Scheduling Requested for: 20Feb2022 Right knee pain Orthopedic Point of Care Ultrasound; Status:Active - Retrospective Authorization; Requested for:20Feb2022; Radiologist to Determine Optimal Study : Y What are the patient's signs and symptoms? : pain r knee Provider Impressions Assessment: Right knee medial compartment patellofemoral compartment osteoarthritis Plan: Today, we discussed different treatment options to include physical therapy, weight loss, low impact exercise, cortisone injection. She like to proceed with the physical therapy and cortisone injection, see procedure section for details. We discussed bracing as an option but we will defer this at this time. We discussed at some point she may need a knee replacement however I would like to hold off on this as long as possible as she is only 46. Follow-up in 6 weeks Chief Complaint PATIENT PRESENTS TO OFFICE FOR : NPV for ARTHRITIS OF RIGHT KNEE ONSET: A COUPLE MONTHS DOI / DOS: NO IMPROVED: NO PAIN: 8/10 PAIN MEDS TAKEN: TYLENOL, IBUPROFEN ROM: OKAY, PAINFUL ICE / HEAT APPLIED: NO BRACE WORN: NO LAST INJECTION: NO REFERRAL: SIS COE XRAY ON 01/31/22. History of Present Illness Patient is here today for evaluation of her right knee pain at the request of Star pelaez. She is a 46-year-old female with a multiple month history of right knee pain with no known injury. She locates the pain to the medial side with radiation up into the thigh. She has difficulty with maneuvering the gas pedal, standing from a seated position, sitting for long periods of time. She has a mostly sedentary job but she finds the need to get up and walk around at times. She is utilize ibuprofen and Tylenol. She rates her pain as an 8/10. She is attempted topical anti-inflammatories. She denies any recent physical therapy injections or bracing. Review of Systems Review of systems normal except above mentioned HPI Active Problems Problems Abnormal mammogram (793.80) (R92.8) Acute maxillary sinusitis (461.0) (J01.00) Acute sinusitis (461.9) (J01.90) Allergic rhinitis (477.9) (J30.9) Arthritis of knee (716.96) (M17.10) Asthma (493.90) (J45.909) Cough (786.2) (R05.9) Depression (311) (F32.A) Encounter for Papanicolaou smear of vagina (V76.47) (Z12.72) Encounter for screening mammogram for breast cancer (V76.12) (Z12.31) Encounter for screening mammogram for malignant neoplasm of breast (V76.12) (Z12.31) Hyperlipidemia (272.4) (E78.5) Incontinence in female (625.6) (R32) Menorrhagia (626.2) (N92.0) Migraines (346.90) (G43.909) Nocturia (788.43) (R35.1) Nodule of right lung (793.11) (R91.1) Obesity (278.00) (E66.9) Perimenopause (627.2) (N95.1) Right knee pain (719.46) (M25.561) URI (upper respiratory infection) (465.9) (J06.9) Urinary incontinence (788.30) (R32) Vaginal Papanicolaou smear (V76.47) (Z12.72) Women's annual routine gynecological examination (V72.31) (Z01.419) Yeast infection of the vagina (112.1) (B37.31) Past Medical History Problems History of Delivery of by section (669.70) (O82) 2003 2007 History of (V13.29) (Z87.59) 1989 History of mammogram (V15.89) (Z92.89) 09/27/2020-WNL 09/10/2018 History of skin cancer (V10.83) (Z85.828) 07/2021 History of Menstruation Onset age 11 years History of Pap test, as part of routine gynecological examination (V76.2) (Z01.419) 09/17/2021: CoTest Negative 09/14/2019: Negative History of Women's annual routine gynecological examination (V72.31) (Z01.419) Resolved Date: 15 Sep 2020 Surgical History Problems History of section 2003 2007 History of Dilation and evacuation History of Endometrial ablation 06/12/2017 12/25/2017 History of Endometrial biopsy 05/20/2017 History of Foot surgery 08/17/2013: Right 02/23/2014: Left History of Laparoscopy 1989 History of Skin lesion excision 07/2021: MOHS procedure on right side of face due to skin cancer. History of Total hysterectomy abdominal 07/02/2018 Family History Mother No pertinent family history Father Family history of hyperlipidemia (V18.19) (Z83.438) Family history of myocardial infarction (V17.3) (Z82.49) x2 Paternal Grandmother Family history of malignant neoplasm of breast (V16.3) (Z80.3) Social History Problems Former smoker (V15.82) (Z87.891) No advance directives (V49.89) (Z78.9) No recent foreign travel Sexually active Allergies sulfa Tachycardia; Recorded By: Afshan Aguillon; 02/18/2019 9:49:56 AM Nickel Rash; Recorded By: Edwina Palma; 07/01/2019 10:50:39 AM Current Meds Medication NameInstruction BD TB Syringe 27G X 1/ (more content not included)... Normal Touchworks No Panel Informationon 02-20 Please click on the link to view the study images Normal [facility] 300 Work Phone: Tobacco Screening.on 023 Fall risk assessment a) No falls within the last year [facility] 300 Work Phone: Tobacco use status [facility] b) No M [facility] 300 Work Phone: KNEE 3 VIEWSon 01-31-2022 KNEE 3 VIEWS Patient Name: SURAJ HAWK STUDY: KNEE; 3 VIEWS INDICATION: pain M25.561: Right knee pain. COMPARISON: None ACCESSION NUMBER(S): [id number] ORDERING CLINICIAN: STAR PELAEZ FINDINGS: Fairly advanced osteoarthritis right knee worst in the medial compartment. No fracture or lesion seen. IMPRESSION: Fairly advanced right knee osteoarthritis worst medially Electronically signed by: ALLEN FAJARDO MD [facility] Office Visit (Family Medicin e)on 01-31-2022 Follow-up visit Diagnoses/Problems Right knee pain (719.46) (M25.561) Knee Xray today Rx for ketoralac x5 days, advised wear compression sleeve, ice/heat, Volteran gel prn She will call in 1 week to update me on symptoms, may consider ortho referral then URI (upper respiratory infection) (465.9) (J06.9) Zpacktarasnatate Follow up prn Orders Right knee pain Start: Diclofenac Sodium 1 % External Gel; Apply to affected area up to 4 times daily 2 grams Xray Knee 3 View; Status:Hold For - Scheduling; Requested for:[id number]; Laterality : Right Radiologist to Determine Optimal Study : Y What are the patient's signs and symptoms? : pain Start: Ketorolac Tromethamine 10 MG Oral Tablet; TAKE 1 TABLET EVERY 6 HOURS NEEDED URI (upper respiratory infection) Start: Azithromycin 250 MG Oral Tablet; TAKE 2 TABLETS ON DAY 1 THEN TAKE 1 TABLET A DAY FOR 4 DAYS Start: Benzonatate 100 MG Oral Capsule; TAKE 1 CAPSULE 3 TIMES DAILY NEEDED Chief Complaint pt c/o right knee pain x 6 weeks, cough, sore throat x 2 days. History of Present Illness 46 YOF presents for acute visit. KNEE PAIN: R knee pain for about 6 weeks, denies injury/trauma to knee. She goes to chiropractor regularly who gave her exercises which do not help with pain. Pain is sharp and located to medial side of knee joint. Denies any swelling. Pain is only mild currently, pain is constant and will flare. Pain at its worst is almost 10/10. She is taking otc ibuprofen/Tylenol only minimally effective, has not tried icing. URI: 7 days of congestion, runny nose, cough productive, low grade fever. 12/28/22: Knee Xray showed advanced arthritis, will offer PT or ortho referral if pain is persisting.1 1 Amended By: Star Pelaez; Feb 06 2022 4:48 PM EST'Scores and Scales' PHQ-9 [id number] 03:31PM PHQ-9 #1. Little interest or pleasure in doing things1-Several days PHQ-9 #2. Feeling down, depressed, or hopelesS1-Several days PHQ-9 #3. Trouble falling or staying asleep, or sleeping too much3-Nearly every day PHQ-9 #4. Feeling tired or having little energy3-Nearly every day PHQ-9 #5. Poor appetite or overeating2-More than half the days PHQ-9 #6. Feeling bad about yourself or you are a failure or that you have let yourself or your family down0-Not at all PHQ-9 #7. Trouble concentrating on things, such as reading the newspaper or watch television0-Not at all PHQ-9 #8. Moving or speaking so slowly that other people could have noticed. Or the opposite-being so fidgety or restless that you have been moving around a lot more than usual0-Not at all PHQ-9 #9. Thoughts that you would be better off , or of hurting yourself0-Not at all PHQ-9 #10. If you checked off any problems, how difficult have these problems made it for you to do your work, take care of things at home, or get along with other people?Not difficult at all PHQ-9 Total Score (Please update problem list based on total score)10 PHQ-9 Depression SeverityModerate (10-14) Review of Systems Review of Systems: Constitutional: no fever, no unintentional weight change Eye: no recent visual problem Respiratory: no shortness of breath Cardiac: no chest pain GI: no reflux, no nausea, no vomiting, no diarrhea, no constipation, no heartburn, no abdominal pain Neurological: no headache Active Problems Abnormal mammogram (793.80) (R92.8) Acute maxillary sinusitis (461.0) (J01.00) Acute sinusitis (461.9) (J01.90) Allergic rhinitis (477.9) (J30.9) Asthma (493.90) (J45.909) Cough (786.2) (R05.9) Depression (311) (F32.A) Encounter for Papanicolaou smear of vagina (V76.47) (Z12.72) Encounter for screening mammogram for breast cancer (V76.12) (Z12.31) Encounter for screening mammogram for malignant neoplasm of breast (V76.12) (Z12.31) Hyperlipidemia (272.4) (E78.5) Incontinence in female (625.6) (R32) Menorrhagia (626.2) (N92.0) Migraines (346.90) (G43.909) Nocturia (788.43) (R35.1) Nodule of right lung (793.11) (R91.1) Obesity (278.00) (E66.9) Perimenopause (627.2) (N95.1) Urinary incontinence (788.30) (R32) Vaginal Papanicolaou smear (V76.47) (Z12.72) Women's annual routine gynecological examination (V72.31) (Z01.419) Yeast infection of the vagina (112.1) (B37.31) Past Medical History History of Delivery of by section (669.70) (O82) 2003 2007 History of (V13.29) (Z87.59) 1989 History of mammogram (V15.89) (Z92.89) 09/27/2020-WNL 09/10/2018 History of skin cancer (V10.83) (Z85.828) 07/2021 History of Menstruation Onset age 11 years History of Pap test, as part of routine gynecological examination (V76.2) (Z01.419) 09/17/2021: CoTest Negative 09/14/2019: Negative History of Women's annual routine gynecological examination (V72.31) (Z01.419) Resolved Date: 15 Sep 2020 Surgical History History of section 2003 2007 History of Dilation and evacuation History of Endometrial ablation 06/12/2017 12/25/2017 Hist (more content not included)... Normal oboxo Radiologyon 01-31-2022 XR Knee 3 Views Please click on the link to view the study images Normal -[facility] Work Phone: XR Knee 3 Views Normal MP-Verito trinh [facility] Work Phone: Tobacco Screening.on 022 Tobacco use status [facility] b) No M P-[facility] Work Phone: ECG 12 Leadon 01-09-2022 Atrial Rate [facility] P [facility]ett[facility] P-R Interval [facility] Q-T Interval [facility] Q-T Interval (corrected) [facility] QRS Duration [facility] QTC Calculation (Bezet) [facility] R [facility] T [facility]ettick [facility] Ventricular Rate [facility] Mamm - Screening Mammogram w / Tomosynthesison 11-01-2021 MG Breast Screening Normal [facility] [address] Work Phone: [phone] Tobacco Screening.on 022 Adult depression screening assessment No [facility] [address] Work Phone: [phone] Adult depression screening assessment Yes [facility] [address] Work Phone: [phone] Fall risk assessment a) No falls within the last year [facility] [address] Work Phone: [phone] Last menstrual period start date 2018 [facility] [address] Work Phone: [phone] Tobacco use status [facility] b) No [facility] [address] Work Phone: [phone] Tobacco Screening. 1-Several days [facility] [address] Work Phone: [phone] Tobacco Screening. 3-Nearly every day [facility] [address] Work Phone: [phone] Tobacco Screening. 2-More than half the days [facility] [address] Work Phone: [phone] Tobacco Screening. 0-Not at all [facility] [address] Work Phone: [phone] Tobacco Screening. Not difficult at all [facility] [address] Work Phone: [phone] Laboratory - Chemistry and C hemistry - challengeon 06-02-2022 Follitropin Qn 43.2 {IU/L} [facility] [address] Work Phone: [phone] Comment on above: REF VALUESFOLLICULAR 9-94NWE-[id number] 12-25LUTEAL PHASE 2-12MENOPAUSE 30-150PREPUBERTY 50% ADULTADULT MALE 2-10INFANTS 0-1 Lutropin Qn 38.1 {IU/L} [facility] [address] [employer] Work Phone: [phone] Comment on above: REF VALUESFOLLICULAR PHASE 1.9-12.5MID-CYCLE 8.7-76.3LUTEAL PHASE 0.5-16.9POST MENOPAUSE 5.0-55.2CHILDREN 0- 6.0ADULT MALE 18-70 1.5- 9.3ADULT MALE >70 3.1-34.6 LMPon 07-10-2021 Last menstrual period start date 2018 [facility] [address] [employer] Work Phone: [phone] Laboratory - Chemistry and C hemistry - challengeon 07-10-2021 Follitropin Qn Canceled [facility] [address] [employer] Work Phone: [phone] Lutropin Qn Canceled [facility] [address] [employer] Work Phone: [phone] Tobacco Screening.on 022 Tobacco use status [facility] b) No M [facility] Work Phone: Laboratory - Cytologyon Cytology report Cyto stain.thin prep Doc (Cvx/Vag) [facility] [address] [employer] Work Phone: [phone] Tobacco Screening.on 021 Last menstrual period start date HYSTERECTOMY [facility] [address] [employer] Work Phone: [phone] Tobacco use status [facility] b) No [facility] [address] Work Phone: [phone] IO UA (nonautomated w/o micr oscopy)on 11-01-2019 Protein (U) [Mass/Vol] Negative [facility] [address] Work Phone: [phone] IO UA (nonautomated w/o microscopy) Clear [facility] [address] Work Phone: [phone] IO UA (nonautomated w/o microscopy) Negative [facility] [address] Work Phone: [phone] IO UA (nonautomated w/o microscopy) 1.025 [facility] [address] Work Phone: [phone] IO UA (nonautomated w/o microscopy) Yellow [facility] [address] Work Phone: [phone] IO UA (nonautomated w/o microscopy) 7.0 [facility] [address] Work Phone: [phone] IO UA (nonautomated w/o microscopy) Trace [facility] [address] Work Phone: [phone] IO UA (nonautomated w/o microscopy) Normal (0.2-1.0 mg/dl) [facility] [address] Work Phone: [phone] Mamm - Screening Mammogram w / Tomosynthesison 09-20-2019 MG Breast screening Interpreted by: HUNTER RIGGS09/21/19 10:09MRN: [id number] Name: SURAJ HAWK STUDY:Digital mammography screening with susanna; 09/20/2019 1:29 pm ORDERING CLINICIAN:KINGSLEY HUTCHINS INDICATION:Screening. COMPARISON:Comparison is made to prior digital mammograms dated09/10/2018 and09/08/2017 FINDINGS:CC and MLO 2D digital mammograms and digital breast tomosynthesisimages were obtained of the bilateral breasts. 3-D volume imageswere reconstructed in 4 views at an independent workstation as 1 mmslices through the breasts in both the CC and MLO projections. There are areas of scattered fibroglandular tissue. No discretemass or focal asymmetry is identified. No suspiciousmicrocalcific ations or foci of architectural distortion are seen.There has been no significant change. This study was interpreted with CAD. IMPRESSION:No mammographic evidence of malignancy. BI-RADS CATEGORY: Category: 1 - Negative.Recommendation : 1 Year Screening.Electronicall y signed by: HUNTER RIGGS 09/21/19 10:09 Normal [facility] [address] [employer] Work Phone: Comment on above: ORDER REVISED TO A D IGITAL MAMM SCREENING W/ SUSANNA BY RADIOLOGIST; Original Order Number: [id number] ECG 12-LEADon 10-29-2018 Atrial Rate [facility] P Hettick [facility] P-R Interval [facility] Q-T Interval [facility] Q-T Interval (corrected) [facility] QRS Duration [facility] QTC Calculation (Bezet) [facility] R [facility] T [facility]ettick [facility] Ventricular Rate [facility] th Lipid Profileon 09-26-2018 Cholesterol [Mass/Vol] 224 mg/dL High 0-[address] [facility] Comment on above: Result Comment: TOTA L CHOLEESTEROL: <200 NORMAL 200 - 239 BORDERLINE HIGH >240 HIGH Performed By: #### 3 [id number] ####ANNA [address] [place] [address] Cholesterol in HDL [Mass/Vol] 49 mg/dL Normal 40-60 [facility] Comment on above: Performed By: #### 3 [id number] ####ANNA [address] [place] [address] Cholesterol in LDL [Mass/Vol] 156 mg/dL High 0-130 [facility] Comment on above: Result Comment: <100 OPTIMAL 100-129 NEAR / ABOVE OPTIMAL 130-159 BORDERLINE HIGH 160-189 HIGH >190 VERY HIGH CALC LDL NOT VALID WHEN TRIGLYCERIDE IS >400 MG/DL Performed By: #### 3 [id number] ####ANNA [address]roxwp[address] [place] [address] Cholesterol in VLDL [Mass/Vol] 19 mg/dL Normal 0-40 [facility] Comment on above: Performed By: #### 3 [id number] ####ANNA [address] [place] [address] Triglyceride [Mass/Vol] 96 mg/dL Normal 0-149 [facility] Comment on above: Result Comment: AGE DESIRABLE BORDERLINE HIGH 91 D - 9 Y 0 - 74 75 - 99 > 100 10 - 19 Y 0 - 89 90 - 129 > 130 20 -24 Y 0 - 114 115 - 149 > 150 > 25 0 - 149 150 - 199 200 - 499 Performed By: #### 3 [id number] ####ANNA [id number] [place] [address] [place] Mamm Screen w/CAD if perf ormed bilaton 09-10-2018 MA Mamm Screen w/CAD if performed bilat Exam Date/Time: 09/10/2018 08:01 EDT Reason for Exam: SCREENING;Screening Report STUDY: Digital mammography screening; 09/10/2018 8:01 am ACCESSION NUMBER(S): [id number] ORDERING CLINICIAN: Kingsley Hutchins INDICATION: Screening. COMPARISON: Comparison is made to prior digital mammograms dated 09/08/2017 and 10/31/2016 FINDINGS: CC and MLO 2D digital mammographic [...] Density: Scattered Fibroglandular Density. FINAL REPORT Dictated: 09/10/2018 9:51 am Hunter Riggs MD Signed (Electronic Signature): 09/10/2018 9:51 am Signed by: Hunter Riggs MD Technologist: Assessment: BI-RADS Category 1-Negative Recommendation: Normal interval follow-up Normal [facility] Auto Diffon 07-04-2018 Basophils (Bld) [#/Vol] 0.0 E3/mcL Normal 0.0-0.2 [facility] Comment on above: Order Comment: Order Added by Discern Expert. Performed By: #### 2 [id number] ####ANNA [address]Mizn[address] [place] [address] Basophils/100 WBC (Bld) 0.6 % Normal 0.0-2.0 [facility] Comment on above: Order Comment: Order Added by Discern Expert. Performed By: #### 2 [id number] ####ANNA PenningtonQepRrbc[address] [place] [address] Eos Absolute 0.3 E3/mcL Normal 0.0-0.7 [facility] Comment on above: Order Comment: Order Added by Discern Expert. Performed By: #### 2 [id number] ####ANNA PenningtonJrsSimy[address] [place] [address] Eosinophils/100 WBC (Bld) 4.6 % Normal 0.0-11.0 [facility] Comment on above: Order Comment: Order Added by Discern Expert. Performed By: #### 2 [id number] ####ANNA [address] [place] [address] Lymphocytes (Bld) [#/Vol] 1.9 E3/mcL Normal 1.2-3.4 [facility] Comment on above: Order Comment: Order Added by Discern Expert. Performed By: #### 2 [id number] ####ANNA [address] [place] [address] Lymphocytes/100 WBC (Bld) 31.7 % Normal 20.0-55.0 [facility] Comment on above: Order Comment: Order Added by Discern Expert. Performed By: #### 2 [id number] ####ANNA PenningtonNcsHgtl[address] [place] [address] Coffee Absolute 0.4 E3/mcL Normal 0.0-0.7 [facility] Comment on above: Order Comment: Order Added by Discern Expert. Performed By: #### 2 [id number] ####ANNA PenningtonBftBqaq[address]50 [place] [address] Monocytes/100 WBC (Bld) 6.3 % Normal 0.0-10.0 [facility] Comment on above: Order Comment: Order Added by Discern Expert. Performed By: #### 2 [id number] ####ANNA PenningtonDmlWduu[address]158 [place] [address] Neutro Absolute 3.5 E3/mcL Normal 1.4-6.5 [facility] Comment on above: Order Comment: Order Added by Discern Expert. Performed By: #### 2 [id number] ####ANNA PenningtonHtzOtmh[address] [place] [address] Neutro Auto 56.8 % Normal 37.0-75.0 [facility] Comment on above: Order Comment: Order Added by Discern Expert. Performed By: #### 2 [id number] ####ANNA [address] [place] [address] CBC w/ Auto Diffon Erythrocyte distribution width (RBC) [Ratio] 14.6 % High 11.5-14.5 [facility] Comment on above: Performed By: #### 2 [id number] ####ANNA [address] [place] [address] Hematocrit (Bld) [Volume fraction] 34.2 % Low 36.0-48.0 [facility] Comment on above: Performed By: #### 2 [id number] ####ANNA [address] [place] [address] Hemoglobin (Bld) [Mass/Vol] 11.3 g/dL Low 12.0-16.0 [facility] Comment on above: Performed By: #### 2 [id number] ####ANNA [address] [place] [address] MCH (RBC) [Entitic mass] 28.5 pg Normal 27.0-31.0 [facility] Comment on above: Performed By: #### 2 [id number] ####ANNA [address] [place] [address] MCHC (RBC) [Mass/Vol] 32.9 g/dL Low 33.0-37.0 [facility] Comment on above: Performed By: #### 2 [id number] ####ANNA [address] [place] [address] MCV (RBC) [Entitic vol] 86.5 fL Normal 78.0-100.0 [facility] Comment on above: Performed By: #### 2 [id number] ####ANNA [address] [place] [address] Platelet mean volume (Bld) [Entitic vol] 8.8 fL Normal 7.4-11.0 [facility] Comment on above: Performed By: #### 2 [id number] ####ANNA [address] [place] [address] Platelets (Bld) [#/Vol] 188 E3/mcL Normal 130-400 [facility] Comment on above: Performed By: #### 2 [id number] ####ANNA [address] [place] [address] RBC (Bld) [#/Vol] 3.95 E6/mcL Normal 3.90-5.40 [facility] Comment on above: Performed By: #### 2 [id number] ####ANNA [address] [place] [address] WBC (Bld) [#/Vol] 6.1 E3/mcL Normal 3.6-11.0 [facility] Comment on above: Performed By: #### 2 [id number] ####ANNA [address] [place] [address] Auto Diffon 07-03-2018 Basophils (Bld) [#/Vol] 0.0 E3/mcL Normal 0.0-0.2 [facility] Comment on above: Order Comment: Order Added by Discern Expert. Performed By: #### 2 [id number] ####ANNA [address] [place] [address] Basophils/100 WBC (Bld) 0.4 % Normal 0.0-2.0 [facility] Comment on above: Order Comment: Order Added by Discern Expert. Performed By: #### 2 [id number] ####ANNA [address] [place] [address] Eos Absolute 0.0 E3/mcL Normal 0.0-0.7 [facility] Comment on above: Order Comment: Order Added by Discern Expert. Performed By: #### 2 [id number] ####ANNA [address] [place] [address] Eosinophils/100 WBC (Bld) 0.1 % Normal 0.0-11.0 [facility] Comment on above: Order Comment: Order Added by Discern Expert. Performed By: #### 2 [id number] ####ANNA [address] [place] [address] Lymphocytes (Bld) [#/Vol] 1.8 E3/mcL Normal 1.2-3.4 [facility] Comment on above: Order Comment: Order Added by Discern Expert. Performed By: #### 2 [id number] ####ANNA [address] [place] [address] Lymphocytes/100 WBC (Bld) 22.4 % Normal 20.0-55.0 [facility] Comment on above: Order Comment: Order Added by Discern Expert. Performed By: #### 2 [id number] ####ANNA [address] [place] [address] Coffee Absolute 0.5 E3/mcL Normal 0.0-0.7 [facility] Comment on above: Order Comment: Order Added by Discern Expert. Performed By: #### 2 [id number] ####ANNA [address] [place] [address] Monocytes/100 WBC (Bld) 6.1 % Normal 0.0-10.0 [facility] Comment on above: Order Comment: Order Added by Discern Expert. Performed By: #### 2 [id number] ####ANNA [address] [place] [address] Neutro Absolute 5.6 E3/mcL Normal 1.4-6.5 [facility] Comment on above: Order Comment: Order Added by Discern Expert. Performed By: #### 2 [id number] ####ANNA [address] [place] [address] Neutro Auto 71.0 % Normal 37.0-75.0 [facility] Comment on above: Order Comment: Order Added by Discern Expert. Performed By: #### 2 [id number] ####ANNA PenningtonKcaGafe[address] [place] [address] BMPon 07-03-2018 Anion gap [Moles/Vol] 9 mmol/L Low 10-20 [facility] Comment on above: Performed By: #### 2 [id number] ####ANNA [address]kkRzlh[address] [place] [address] Calcium [Mass/Vol] 8.0 mg/dL Low 8.6-10.3 [facility] Comment on above: Performed By: #### 2 [id number] ####ANNAGordon PenningtonKezAcwr[address]8 [place] [address] Chloride [Moles/Vol] 107 mmol/L Normal 98-107 [facility] Comment on above: Performed By: #### 2 [id number] ####ANNA [address]Qfwn[address] [place] [address] CO2 [Moles/Vol] 23.0 mmol/L Normal 21.0-32.0 [facility] Comment on above: Performed By: #### 2 [id number] ####ANNA VyvSzhv6394 [place] [address] Creatinine [Mass/Vol] 0.6 mg/dL Normal 0.5-1.1 [facility] Comment on above: Performed By: #### 2 511596 ####ANNA WryGeae7067 [place] [address] Glucose [Mass/Vol] 142 mg/dL High 70-99 [facility] Comment on above: Performed By: #### 2 420225 ####ANNA CbuAwpl1834 [place] [address] Potassium [Moles/Vol] 3.6 mmol/L Normal 3.5-5.3 [facility] Comment on above: Performed By: #### 2 313793 ####ANNA FltJppk3880 [place] [address] Sodium [Moles/Vol] 135 mmol/L Low 136-145 [facility] Comment on above: Performed By: #### 2 544126 ####ANNA WnySoev1080 [place] [address] Urea nitrogen [Mass/Vol] 12 mg/dL Normal 6-23 [facility] Comment on above: Performed By: #### 2 785765 ####ANNA MxsZjre5125 [place] [address] Urea nitrogen/Creatinine [Mass ratio] 20.0 ratio Normal 5.4-30.0 [facility] Comment on above: Performed By: #### 2 551083 ####ANNA RtoStex4821 [place] [address] CBC w/ Auto Diffon 9 Erythrocyte distribution width (RBC) [Ratio] 14.2 % Normal 11.5-14.5 [facility] Comment on above: Performed By: #### 2 341734 ####ANNA PenningtonBwzGaxh2552 [place] [address] Hematocrit (Bld) [Volume fraction] 32.0 % Low 36.0-48.0 [facility] Comment on above: Performed By: #### 2 277725 ####ANNA PenningtonLfmRhtm1624 [place] [address] Hemoglobin (Bld) [Mass/Vol] 10.6 g/dL Low 12.0-16.0 [facility] Comment on above: Performed By: #### 2 060855 ####ANNA PenningtonUzsDmnk0663 [place] [address] MCH (RBC) [Entitic mass] 28.3 pg Normal 27.0-31.0 [facility] Comment on above: Performed By: #### 2 813525 ####ANNA Moyero1025 [place] [address] MCHC (RBC) [Mass/Vol] 33.0 g/dL Normal 33.0-37.0 [facility] Comment on above: Performed By: #### 2 253633 ####ANNA PenningtonCjaIrvu0104 [place] [address] MCV (RBC) [Entitic vol] 85.7 fL Normal 78.0-100.0 [facility] Comment on above: Performed By: #### 2 803525 ####ANNA PenningtonDdfTpmd9469 [place] [address] Platelet mean volume (Bld) [Entitic vol] 9.1 fL Normal 7.4-11.0 [facility] Comment on above: Performed By: #### 2 134143 ####ANNA PenningtonRkbRzbt2091 [place] [address] Platelets (Bld) [#/Vol] 191 E3/mcL Normal 130-400 [facility] Comment on above: Performed By: #### 2 633021 ####ANNA PenningtonKymYaft4483 [place] [address] RBC (Bld) [#/Vol] 3.74 E6/mcL Low 3.90-5.40 [facility] Comment on above: Performed By: #### 2 604564 ####ANNA BdbQpxl8567 [place] [address] WBC (Bld) [#/Vol] 7.9 E3/mcL Normal 3.6-11.0 [facility] Comment on above: Performed By: #### 2 348737 ####ANNA GwvHkdn1039 [place] [address] eGFRon 07-03-2018 GFR/1.73 sq M predicted among non-blacks MDRD (S/P/Bld) [Vol rate/Area] mL/min/{1.73_m2} Normal [facility] Comment on above: Order Comment: Order added by Discern Expert. Performed By: #### 1 [id number] ####ANNA PgrMgln3831 [place] [address] ABO/Rh Echoon 06-30-2018 ABO/Rh E Interp... Positive Normal [facility] Comment on above: Performed By: #### 8 [id number] #### ANNA Blood Bank Subsection [address] [place], [place] [id number] Antibody Screen Cap...on Screen Interp... Negative Normal [facility] Comment on above: Performed By: #### 8 [id number] ####ANNA Blood Bank [address] [place] [address] Auto Diffon 06-30-2018 Basophils (Bld) [#/Vol] 0.1 E3/mcL Normal 0.0-0.2 [facility] Comment on above: Order Comment: Order Added by Discern Expert. Performed By: #### 2 895133 #### ANNA RemHemo [address] [place] [address] Basophils/100 WBC (Bld) 1.0 % Normal 0.0-2.0 [facility] Comment on above: Order Comment: Order Added by Discern Expert. Performed By: #### 2 061583 #### ANNA RemHemo [address] [place] [address] Eos Absolute 0.2 E3/mcL Normal 0.0-0.7 [facility] Comment on above: Order Comment: Order Added by Discern Expert. Performed By: #### 2 436388 #### ANNA RemHemo [address] [place] [address] Eosinophils/100 WBC (Bld) 2.9 % Normal 0.0-11.0 [facility] Comment on above: Order Comment: Order Added by Discern Expert. Performed By: #### 2 715574 #### ANNA RemHemo [address] [place] [address] Lymphocytes (Bld) [#/Vol] 2.1 E3/mcL Normal 1.2-3.4 [facility] Comment on above: Order Comment: Order Added by Discern Expert. Performed By: #### 2 600334 #### ANNA RemHemo [address] [place] [address] Lymphocytes/100 WBC (Bld) 33.5 % Normal 20.0-55.0 [facility] Comment on above: Order Comment: Order Added by Discern Expert. Performed By: #### 2 498789 #### ANNA RemHemo [address] [place] [address] Coffee Absolute 0.4 E3/mcL Normal 0.0-0.7 [facility] Comment on above: Order Comment: Order Added by Discern Expert. Performed By: #### 2 657960 #### ANNA RemHemo [address] [place] [address] Monocytes/100 WBC (Bld) 7.0 % Normal 0.0-10.0 [facility] Comment on above: Order Comment: Order Added by Discern Expert. Performed By: #### 2 983443 #### ANNA RemHemo [address] [place] [address] Neutro Absolute 3.4 E3/mcL Normal 1.4-6.5 [facility] Comment on above: Order Comment: Order Added by Discern Expert. Performed By: #### 2 144997 #### ANNA RemHemo [address] [place] [address] Neutro Auto 55.6 % Normal 37.0-75.0 [facility] Comment on above: Order Comment: Order Added by Discern Expert. Performed By: #### 2 355812 #### ANNA RemHemo [address] [place] [address] BMPon 06-30-2018 Anion gap [Moles/Vol] 10 mmol/L Normal 10-20 [facility] Comment on above: Performed By: #### 2 130905 #### ANNA RemChem [address] [place] [address] Calcium [Mass/Vol] 9.1 mg/dL Normal 8.6-10.3 [facility] Comment on above: Performed By: #### 2 419385 #### ANNA RemChem [address] [place] [address] Chloride [Moles/Vol] 105 mmol/L Normal 98-107 [facility] Comment on above: Performed By: #### 2 861331 #### ANNA RemChem [facility] [place] [address] CO2 [Moles/Vol] 28.0 mmol/L Normal 21.0-32.0 [facility] Comment on above: Performed By: #### 2 306131 #### ANNA RemChem [facility] [place] [address] Creatinine [Mass/Vol] 0.6 mg/dL Normal 0.5-1.1 [facility] Comment on above: Performed By: #### 2 213078 #### ANNA RemChem [address] [place] [address] Glucose [Mass/Vol] 66 mg/dL Low 70-99 [facility] Comment on above: Performed By: #### 2 620872 #### ANNA RemChem [address] [place] [address] Potassium [Moles/Vol] 4.2 mmol/L Normal 3.5-5.3 [facility] Comment on above: Performed By: #### 2 319069 #### ANNA RemChem [address] [place] [address] Sodium [Moles/Vol] 138 mmol/L Normal 136-145 [facility] Comment on above: Performed By: #### 2 042233 #### ANNA RemChem [address] [place] [address] Urea nitrogen [Mass/Vol] 17 mg/dL Normal 6-23 [facility] Comment on above: Performed By: #### 2 133326 #### ANNA RemChem [address] [place] [address] Urea nitrogen/Creatinine [Mass ratio] 28.3 ratio Normal 5.4-30.0 [facility] Comment on above: Performed By: #### 2 053896 #### ANNA RemChem [address] [place] [address] CBC w/ Auto Diffon 9 Erythrocyte distribution width (RBC) [Ratio] 14.3 % Normal 11.5-14.5 [facility] Comment on above: Performed By: #### 2 080701 #### ANNA RemHemo [address] [place] [address] Hematocrit (Bld) [Volume fraction] 40.4 % Normal 36.0-48.0 [facility] Comment on above: Performed By: #### 2 954536 #### ANNA RemHemo [address] [place] [address] Hemoglobin (Bld) [Mass/Vol] 13.5 g/dL Normal 12.0-16.0 [facility] Comment on above: Performed By: #### 2 581573 #### ANNA RemHemo [address] [place] [address] MCH (RBC) [Entitic mass] 28.2 pg Normal 27.0-31.0 [facility] Comment on above: Performed By: #### 2 740304 #### ANNA RemHemo [address] [place] [address] MCHC (RBC) [Mass/Vol] 33.4 g/dL Normal 33.0-37.0 [facility] Comment on above: Performed By: #### 2 436309 #### ANNA RemHemo [address] [place] [address] MCV (RBC) [Entitic vol] 84.5 fL Normal 78.0-100.0 [facility] Comment on above: Performed By: #### 2 482095 #### ANNA RemHemo [address] [place] [address] Platelet mean volume (Bld) [Entitic vol] 8.9 fL Normal 7.4-11.0 [facility] Comment on above: Performed By: #### 2 223666 #### ANNA RemHemo [address] [place] [address] Platelets (Bld) [#/Vol] 207 E3/mcL Normal 130-400 [facility] Comment on above: Performed By: #### 2 614074 #### ANNA RemHemo [address] [place] [address] RBC (Bld) [#/Vol] 4.77 E6/mcL Normal 3.90-5.40 [facility] Comment on above: Performed By: #### 2 353477 #### ANNA RemHemo [address] [place] [address] WBC (Bld) [#/Vol] 6.2 E3/mcL Normal 3.6-11.0 [facility] Comment on above: Performed By: #### 2 378060 #### ANNA RemHemo [address] [place] [address] eGFRon 06-30-2018 GFR/1.73 sq M predicted among non-blacks MDRD (S/P/Bld) [Vol rate/Area] mL/min/{1.73_m2} Normal [facility] Comment on above: Order Comment: Order added by Discern Expert. Performed By: #### 1 [id number] #### ANNA RemChem [address] [place] [address] Auto Diffon 12-25-2017 Basophils (Bld) [#/Vol] 0.0 E3/mcL Normal 0.0-0.2 [facility] Comment on above: Order Comment: Order Added by Discern Expert. Performed By: #### 2 256010 #### ANNA RemHemo [address] [place] [address] Basophils/100 WBC (Bld) 0.5 % Normal 0.0-2.0 [facility] Comment on above: Order Comment: Order Added by Discern Expert. Performed By: #### 2 778948 #### ANNA RemHemo [address] [place] [address] Eos Absolute 0.2 E3/mcL Normal 0.0-0.7 [facility] Comment on above: Order Comment: Order Added by Discern Expert. Performed By: #### 2 754362 #### ANNA RemHemo [address] [place] [address] Eosinophils/100 WBC (Bld) 2.2 % Normal 0.0-11.0 [facility] Comment on above: Order Comment: Order Added by Discern Expert. Performed By: #### 2 513766 #### ANNA RemHemo [address] [place] [address] Lymphocytes (Bld) [#/Vol] 1.6 E3/mcL Normal 1.2-3.4 [facility] Comment on above: Order Comment: Order Added by Discern Expert. Performed By: #### 2 123871 #### ANNA RemHemo [address] [place] [address] Lymphocytes/100 WBC (Bld) 18.0 % Low 20.0-55.0 [facility] Comment on above: Order Comment: Order Added by Discern Expert. Performed By: #### 2 903568 #### ANNA RemHemo [address] [place] [address] Coffee Absolute 0.5 E3/mcL Normal 0.0-0.7 [facility] Comment on above: Order Comment: Order Added by Discern Expert. Performed By: #### 2 522759 #### ANNA RemHemo [address] [place] [address] Monocytes/100 WBC (Bld) 6.1 % Normal 0.0-10.0 [facility] Comment on above: Order Comment: Order Added by Discern Expert. Performed By: #### 2 707566 #### ANNA RemHemo [address] [place] [address] Neutro Absolute 6.3 E3/mcL Normal 1.4-6.5 [facility] Comment on above: Order Comment: Order Added by Discern Expert. Performed By: #### 2 525589 #### ANNA RemHemo [address] [place] [address] Neutro Auto 73.2 % Normal 37.0-75.0 [facility] Comment on above: Order Comment: Order Added by Discern Expert. Performed By: #### 2 976748 #### ANNA RemHemo [address] [place] [address] BhCG Qualon 12-25-2017 Beta hCG Ql Negative Normal Negative [facility] Comment on above: Performed By: #### 2 967859 #### ANNA Chemistry Manual Subsection [address] [place] [address] CBC w/ Auto Diffon 8 Erythrocyte distribution width (RBC) [Ratio] 14.2 % Normal 11.5-14.5 [facility] Comment on above: Performed By: #### 2 830659 #### ANNA RemHemo [facility] [place] [address] Hematocrit (Bld) [Volume fraction] 39.8 % Normal 36.0-48.0 [facility] Comment on above: Performed By: #### 2 527836 #### ANNA RemHemo [facility] [place] [address] Hemoglobin (Bld) [Mass/Vol] 13.2 g/dL Normal 12.0-16.0 [facility] Comment on above: Performed By: #### 2 670598 #### ANNA RemHemo [address] [place] [address] MCH (RBC) [Entitic mass] 28.4 pg Normal 27.0-31.0 [facility] Comment on above: Performed By: #### 2 192581 #### ANNA RemHemo [address] [place] [address] MCHC (RBC) [Mass/Vol] 33.1 g/dL Normal 33.0-37.0 [facility] Comment on above: Performed By: #### 2 220249 #### ANNA RemHemo [facility] [place] [address] MCV (RBC) [Entitic vol] 85.9 fL Normal 78.0-100.0 [facility] Comment on above: Performed By: #### 2 412054 #### ANNA RemHemo [facility] [place] [address] Platelet mean volume (Bld) [Entitic vol] 8.6 fL Normal 7.4-11.0 [facility] Comment on above: Performed By: #### 2 498918 #### ANNA PenningtonHemo [address] [place] [address] Platelets (Bld) [#/Vol] 166 E3/mcL Normal 130-400 [facility] Comment on above: Performed By: #### 2 227888 #### ANNA PenningtonHemo [address] [place] [address] RBC (Bld) [#/Vol] 4.63 E6/mcL Normal 3.90-5.40 [facility] Comment on above: Performed By: #### 2 885883 #### ANNA RemHemo [address] [place] [address] WBC (Bld) [#/Vol] 8.6 E3/mcL Normal 3.6-11.0 [facility] Comment on above: Performed By: #### 2 167550 #### ANNA PenningtonHemo [address] [place] [address] XR Hysterosalpingographyon 02-16-2017 XR Hysterosalpingography Exam Date/Time: 12/17/2017 08:26 EST Reason for Exam: MENOMETRORRHAGIA;Other (please specify) Report STUDY: XR Hysterosalpingography; 12/17/2017 8:26 am INDICATION: Menometrorrhagia COMPARISON: None. ACCESSION NUMBER(S): [id number] ORDERING CLINICIAN: Kingsley Hutchins TECHNIQUE: An HSG was performed in [...] FINAL REPORT Dictated: 12/17/2017 9:45 am Hunter Riggs MD Signed (Electronic Signature): 12/17/2017 9:45 am Signed by: Hunter Riggs MD Technologist: HIPOLITO Sanchez [facility] 12-13-2017 HCG.beta subunit Qn Negative Normal Neg [facility] Comment on above: Performed By: #### 2 [id number] #### ANNA Urinalysis Manual Subsection [address] [place] [address] Pathology ([facility])on 08-06-2017 Pathology ([facility]) FINAL GYNECOLOGIC CYTOLOGY [id number] N ADEQUACYSatisfactory for Evaluation. No endocervical cells/transformation zonecomponent present.GENERAL CATEGORIZATIONNegative for Intraepithelial Lesion or MalignancyCLINICAL HISTORYLMP: 06/02/2017SPECIMEN(A) SCREENING CERVICAL/ENDOCERVICAL THIN PREP VIALPerformed at [facility], [address] [address]Screened by: Signed Out by: MANE PAYNE Rendering Equipment Tender Reported: 08/11/2017 Normal [facility] Healthcare Comment on above: Performed By: #### G YN ####[facility] [address] [place] [address] Office Visit: acute- not fee ling well and medication reviewon 12-30-2016 Documentation of current medications (procedure) Done Invalid Interpretation Code [facility] Work Phone: Tobacco smoking status NHIS Never Invalid Interpretation Code [facility] Work Phone: Tobacco use HS Former smoker Invalid Interpretation Code [facility] Work Phone: [facility] Repor ton 09-23-2016 [facility] Report Type: NeurologyDictated by: To be signed by: Transcribed by: Transcribed D/ Dictation D/ Report: August 07, 2016 Dimitry Subramanian M.D. [address] [place] [address] Re: Suraj Hawk Dear Dr. Subramanian: I had not seen Suraj in about a year. She had done fairly well up until the past few months and certainly this month her headaches are coming more frequently. She has had about 2-3 migraines and 5 headache days per month this month. She did have to leave work yesterday. She takes the Anaprox and the Amerge, but it does not take the headache away. She even had to repeat the Amerge. Her periods are regular. She does not get much sleep and she is becoming more irritable so she may be premenopausal. Her disc margins are sharp and flat and her vital signs are stable. Her weight is 220. You recently began her on Zoloft. I told her Zoloft caused her to gain weight or more headaches, or did not help with her irritability we could utilize something such as Lamictal for headache prevention and menopausal irritability; however, some of her headaches are likely hormonal, particularly as she is on the Nordette. Some of her headaches do come at placebo times of her head pain, so I told her to take Anaprox or Relpax the night before she starts the placebo tablets. She is unable to take magnesium, but I am prescribing riboflavin, as well as coenzyme Q10, Anaprox, Relpax in lieu of Amerge, and Imitrex stat dose. She will follow up in 4 months. If her headaches do not improve, she is notified to call me because prednisone may be an option and MRI scan at that time. Sincerely, Alexandra Norton D.O. NeurologistCopies to Physicians(s): Normal [facility] Office Visit: Bronchitis/Cou ghon 08-14-2016 Documentation of current medications (procedure) Done Invalid Interpretation Code [facility] Phone: Tobacco smoking status NHIS Never Invalid Interpretation Code [facility] Phone: Tobacco use [facility] Former smoker Invalid Interpretation Code [facility] Work Phone: Lab Report: Aspergillus Anti bodieson 05-04-2016 Asp. fumigatus Negative Invalid Interpretation Code Neg:<1:1 [facility] Work Phone: Asp. niger Negative Invalid Interpretation Code Neg:<1:1 [facility] Work Phone: Lab Report: Immunoglobulin E on 05-04-2016 IMMUNO E 2 [iU]/mL Invalid Interpretation Code 0-100 [facility] Work Phone: Lab Report: Basic Metabolic Profile (BMP)on 04-30-2016 Anion gap 7 mmol/L Invalid Interpretation Code 5-15 [facility] Work Phone: [phone] BUN/Creatinine Ratio 12.0 RATIO Invalid Interpretation Code 10-20 [facility] Work Phone: [phone] Calcium 9.2 mg/dL Invalid Interpretation Code 8.5-10.1 [facility] Work Phone: [phone] Chloride 107 mmol/L Invalid Interpretation Code 98-107 [facility] Work Phone: [phone] CO2 26.0 mmol/L Invalid Interpretation Code 21.0-32.0 [facility] Work Phone: [phone] Creatinine 0.75 mg/dL Invalid Interpretation Code 0.55-1.02 [facility] Phone: eGFR (non-black) 90 mL/min/{1.73_m2} Invalid Interpretation Code >60 [facility] Phone: eGFR (non-black) 108 mL/min/{1.73_m2} Invalid Interpretation Code >60 [facility] Work Phone: Glucose mass conc 77 mg/dL Invalid Interpretation Code 70-110 [facility] Phone: Potassium molar conc 3.9 mmol/L Invalid Interpretation Code 3.5-5.1 [facility] Phone: Sodium 140 mmol/L Invalid Interpretation Code 136-145 [facility] Phone: [phone] Urea nitrogen 9 mg/dL Invalid Interpretation Code 7-18 [facility] Work Phone: [phone] Lab Report: CBC-Complete Blo od Cnt No Diffon 04-30-2016 Erythrocyte distribution width Auto Ratio (RBC) 13.9 % Invalid Interpretation Code 11.6-14.6 [facility] Phone: [phone] Erythrocytes (RBC) 4.55 10*6/uL Invalid Interpretation Code 4.2-5.4 [facility] Phone: [phone] Hematocrit (HCT) 40.3 % Invalid Interpretation Code 37-47 [facility] Phone: Hemoglobin mass conc (Bld) 13.1 g/dL Invalid Interpretation Code 12.0-15.0 [facility] Work Phone: MCH 28.8 pg Invalid Interpretation Code 27.0-32.0 [facility] Work Phone: MCHC mass conc (RBC) 32.5 G/GL Invalid Interpretation Code 32-36 [facility] Work Phone: MCV 88.6 fL Invalid Interpretation Code 81-99 [facility] Work Phone: Platelets 228 10*3/mm3 Invalid Interpretation Code 150-450 [facility] Work Phone: PMV by Sandra 9.8 fL Invalid Interpretation Code 6.2-12.0 [facility] Work Phone: RDW SD 44.5 fL High 35.1-43.9 [facility] Work Phone: WBC (Leukocytes) 5.9 10*3/uL Invalid Interpretation Code 4.4-11.0 [facility] Work Phone: Lab Report: Partial Thrombop last Timeon 04-30-2016 aPTT 26.2 s Invalid Interpretation Code 24.1-36.2 [facility] Work Phone: Lab Report: Prothrombin Time w/INRon 04-30-2016 INR Coag RelTime (PPP) 1.1 {INR} Invalid Interpretation Code [facility] Work Phone: Prothrombin time (PT) Coag time (PPP) 13.3 s Invalid Interpretation Code 11.7-14.9 [facility] Work Phone: Vital Signs Date Time Vital Sign Value Performing Clinician Debra merrill 07-23-2024 08:32-0400 Body height 154.9 cm [employer] Phone: [employer] 07-23-2024 08:32-0400 Body mass index (BMI) [Ratio] 45.05 kg/m2 Alexandra Raedy DO Work Phone: [facility] 07-23-2024 08:32-0400 Body weight 108.14 kg Alexandra Raedy DO Work Phone: [facility] 07-23-2024 08:32-0400 Diastolic blood pressure 70 mm[Hg] Alexandra Raedy DO Work Phone: [facility] 07-23-2024 08:32-0400 Heart rate 100 /min Alexandra Raedy DO Work Phone: [facility] 07-23-2024 08:32-0400 SaO2% (BldA) [Mass fraction] 97 % Alexandra Raedy DO Work Phone: [facility] 07-23-2024 08:32-0400 Systolic blood pressure 130 mm[Hg] Alexandra Raedy DO Work Phone: [facility] 05-06-2024 15:48-0400 Body mass index (BMI) [Ratio] 43.54 kg/m2 Golden Maradiaga MD Work Phone: [facility] 05-06-2024 15:48-0400 Body weight 106.23 kg Golden Maradiaga MD Work Phone: [facility] 03-25-2024 15:46-0500 Body mass index (BMI) [Ratio] 43.61 kg/m2 Golden Maradiaga MD Work Phone: [facility] 03-25-2024 15:46-0500 Body weight 106.41 kg Golden Maradiaga MD Work Phone: [facility] 01-23-2024 11:15-0500 Body height 156.2 cm Dimitry Subramanian MD Work Phone: [facility] 01-23-2024 11:15-0500 Body mass index (BMI) [Ratio] 41.64 kg/m2 Dimitry Subramanian MD Work Phone: [facility] 01-23-2024 11:15-0500 Body weight 101.61 kg Dimitry Subramanian MD Work Phone: [facility] 01-23-2024 11:15-0500 Diastolic blood pressure 72 mm[Hg] Dimitry Subramanian MD Work Phone: [facility] 01-23-2024 11:15-0500 Heart rate 92 /min Dimitry Subramanian MD Work Phone: [facility] 01-23-2024 11:15-0500 SaO2% (BldA) [Mass fraction] 97 % Dimitry Subramanian MD Work Phone: [facility] 01-23-2024 11:15-0500 Systolic blood pressure 118 mm[Hg] Dimitry Subramanian MD Work Phone: [facility] 01-23-2024 08:13-0500 Body mass index (BMI) [Ratio] 42.32 kg/m2 Alexandra Raedy DO Work Phone: [facility] 01-23-2024 08:13-0500 Body weight 101.61 kg Alexandra Raedy DO Work Phone: [employer] [facility] 01-23-2024 08:13-0500 Diastolic blood pressure 70 mm[Hg] Alexandra Raedy DO Work Phone: [employer] [facility] 01-23-2024 08:13-0500 Heart rate 107 /min Alexandra Raedy DO Work Phone: [facility] 01-23-2024 08:13-0500 SaO2% (BldA) [Mass fraction] 98 % Alexandra Raedy DO Work Phone: [employer] [facility] 01-23-2024 08:13-0500 Systolic blood pressure 132 mm[Hg] Alexandra Raedy DO Work Phone: [facility] 01-14-2024 09:08-0500 Body height 154.9 cm Gaston Verde APRN-JOHN Work Phone: [facility] 01-14-2024 09:08-0500 Body mass index (BMI) [Ratio] 41.19 kg/m2 Gaston Verde INSTRUMENT LENS GRINDER-CHIMNEY BUILDER Work Phone: [facility] 01-14-2024 09:08-0500 Body temperature 98.2 [degF] Gaston Verde INSTRUMENT LENS [employer]ILDER Work Phone: [facility] 01-14-2024 09:08-0500 Body weight 98.88 kg Gaston Verde [employer]UMENT [employer] GR[employer]ER[employer]CHIMNEY BUILDER Work Phone: [facility] 01-14-2024 09:08-0500 Diastolic blood pressure 81 mm[Hg] Gaston Verde [employer]CH[employer]NEY BUILDER Work Phone: [facility] 01-14-2024 09:08-0500 Heart rate 90 /min Gaston Verde [employer]CHIMNEY BUILDER Work Phone: [facility] 01-14-2024 09:08-0500 Respiratory rate 20 /min Gaston Verde [employer]CHIMNEY BUILDER Work Phone: [facility] 01-14-2024 09:08-0500 SaO2% (BldA) [Mass fraction] 97 % Gaston Verde [employer] GR[employer]CHIMNEY BUILDER Work Phone: [facility] 01-14-2024 09:08-0500 Systolic blood pressure 119 mm[Hg] Gaston Charis [employer] GR[employer]ER[employer]CHIMNEY BUILDER Work Phone: [facility] 01-01-2024 08:03-0500 Body mass index (BMI) [Ratio] 41.19 kg/m2 Bridger Edouard MD Work Phone: [facility] 01-01-2024 08:03-0500 Body weight 98.88 kg Bridger Edouard MD Work Phone: [facility] 01-01-2024 08:03-0500 Diastolic blood pressure 70 mm[Hg] Bridger Edouard MD Work Phone: [facility] 01-01-2024 08:03-0500 Heart rate 82 /min Bridger Edouard MD Work Phone: [facility] 01-01-2024 08:03-0500 SaO2% (BldA) [Mass fraction] 99 % Bridger Edouard MD Work Phone: [facility] 01-01-2024 08:03-0500 Systolic blood pressure 124 mm[Hg] Bridger Edouard MD Work Phone: [facility] 12-01-2023 11:05-0400 Body mass index (BMI) [Ratio] 41.19 kg/m2 Bridger Edouard MD Work Phone: [facility] 12-01-2023 11:05-0400 Body weight 98.88 kg Bridger Edouard MD Work Phone: [facility] 12-01-2023 11:05-0400 Diastolic blood pressure 68 mm[Hg] Bridger Edouard MD Work Phone: [facility] 12-01-2023 11:05-0400 Heart rate 78 /min Bridger Edouard MD Work Phone: [facility] 12-01-2023 11:05-0400 SaO2% (BldA) [Mass fraction] 97 % Bridger Edouard MD Work Phone: [facility] 12-01-2023 11:05-0400 Systolic blood pressure 112 mm[Hg] Bridger Edouard MD Work Phone: [facility] 11-12-2023 07:46-0400 Body height 154.9 cm [facility] 11-12-2023 07:46-0400 Body mass index (BMI) [Ratio] 41.19 kg/m2 [facility] 11-12-2023 07:46-0400 Body weight 98.88 kg [facility] 11-10-2023 13:18-0400 Body height 154.9 cm Debby Fajardo DO Work Phone: [facility] 11-10-2023 13:18-0400 Body mass index (BMI) [Ratio] 41.3 kg/m2 Debby Fajardo DO Work Phone: [facility] 11-10-2023 13:18-0400 Body weight 99.16 kg Debby Fajardo DO Work Phone: [facility] 11-10-2023 13:18-0400 Diastolic blood pressure 68 mm[Hg] Debby Fajardo DO Work Phone: [facility] 11-10-2023 13:18-0400 Heart rate 100 /min Debby Fajardo DO Work Phone: [facility] 11-10-2023 13:18-0400 Systolic blood pressure 112 mm[Hg] Debby Fajardo DO Work Phone: [facility] 11-06-2023 10:27-0400 Body mass index (BMI) [Ratio] 41.4 kg/m2 Bridger Edouard MD Work Phone: [facility] 11-06-2023 10:27-0400 Body weight 99.34 kg Bridger Edouard MD Work Phone: [facility] 11-06-2023 10:27-0400 Diastolic blood pressure 70 mm[Hg] Bridger Edouard MD Work Phone: [facility] 11-06-2023 10:27-0400 Heart rate 96 /min Bridger Edouard MD Work Phone: [facility] 11-06-2023 10:27-0400 SaO2% (BldA) [Mass fraction] 95 % Bridger Edouard MD Work Phone: [facility] 11-06-2023 10:27-0400 Systolic blood pressure 116 mm[Hg] Bridger Edouard MD Work Phone: [facility] 10-29-2023 15:32-0400 Body temperature 97.7 [degF] Jim Escobedo MD Work Phone: [facility] 10-29-2023 15:32-0400 Diastolic blood pressure 75 mm[Hg] Jim Escobedo MD Work Phone: [facility] 10-29-2023 15:32-0400 Heart rate 85 /min Jim Escobedo MD Work Phone: [facility] 10-29-2023 15:32-0400 Respiratory rate 18 /min Jim Escobedo MD Work Phone: [facility] 10-29-2023 15:32-0400 SaO2% (BldA) [Mass fraction] 97 % Jim Escobedo MD Work Phone: [facility] 10-29-2023 15:32-0400 Systolic blood pressure 134 mm[Hg] Jim Escobedo MD Work Phone: [facility] 10-27-2023 02:50-0400 Body height 154.9 cm Jim Escobedo MD Work Phone: [facility] 10-27-2023 02:50-0400 Body mass index (BMI) [Ratio] 43.43 kg/m2 Jim Escobedo MD Work Phone: [facility] 10-27-2023 02:50-0400 Body weight 104.2 kg Jim Escobedo MD Work Phone: [facility] 10-24-2023 08:20-0400 Body mass index (BMI) [Ratio] 43.68 kg/m2 Alexandra Raedy DO Work Phone: [facility] 10-24-2023 08:20-0400 Body weight 104.87 kg Alexandra Raedy DO Work Phone: [facility] 10-24-2023 08:20-0400 Diastolic blood pressure 76 mm[Hg] Alexandra Raedy DO Work Phone: [facility] 10-24-2023 08:20-0400 Heart rate 107 /min Alexandra Raedy DO Work Phone: [facility] 10-24-2023 08:20-0400 SaO2% (BldA) [Mass fraction] 91 % Alexandra Norton DO Work Phone: [facility] 10-24-2023 08:20-0400 Systolic blood pressure 140 mm[Hg] Alexandra Swainy DO Work Phone: [facility] 10-23-2023 08:58-0400 Body mass index (BMI) [Ratio] 44.4 kg/m2 Bridger Edouard MD Work Phone: [facility] 10-23-2023 08:58-0400 Body weight 106.59 kg Bridger Edouard MD Work Phone: [facility] 10-23-2023 08:58-0400 Diastolic blood pressure 72 mm[Hg] Bridger Edouard MD Work Phone: [facility] 10-23-2023 08:58-0400 Heart rate 89 /min Bridger Edouard MD Work Phone: [facility] 10-23-2023 08:58-0400 SaO2% (BldA) [Mass fraction] 91 % Bridger Edouard MD Work Phone: [facility] 10-23-2023 08:58-0400 Systolic blood pressure 120 mm[Hg] Bridger Edouard MD Work Phone: [facility] 10-21-2023 07:56-0400 Body temperature 97.9 [degF] Carrie Alejo DO Work Phone: [facility] 10-21-2023 07:56-0400 Diastolic blood pressure 70 mm[Hg] Carrie Alejo DO Work Phone: [facility] 10-21-2023 07:56-0400 Heart rate 99 /min Carrie Alejo DO Work Phone: [facility] 10-21-2023 07:56-0400 Respiratory rate 20 /min Carrie Alejo DO Work Phone: [facility] 10-21-2023 07:56-0400 SaO2% (BldA) [Mass fraction] 91 % Carrie Alejo DO Work Phone: [facility] 10-21-2023 07:56-0400 Systolic blood pressure 103 mm[Hg] Carrie Alejo DO Work Phone: [facility] 10-18-2023 01:35-0400 Body height 154.9 cm Carrie Alejo DO Work Phone: [facility] 10-18-2023 01:35-0400 Body mass index (BMI) [Ratio] 45.07 kg/m2 Carrie Alejo DO Work Phone: [facility] 10-18-2023 01:35-0400 Body weight 108.2 kg Carrie Alejo DO Work Phone: [facility] 10-16-2023 10:02-0400 Body height 156.2 cm Purnima Brody IN[employer]UMENT [employer] GR[employer]ER[employer]CHIMNEY BUILDER Work Phone: [facility] 10-16-2023 10:02-0400 Body mass index (BMI) [Ratio] 43.13 kg/m2 Purnima Brody [employer]UMENT [employer] GR[employer]ER[employer]CHIMNEY BUILDER Work Phone: [facility] 10-16-2023 10:02-0400 Body temperature 98.2 [degF] Purnima Brody [employer]UMENT [employer] GR[employer]ER[employer]CHIMNEY BUILDER Work Phone: [facility] 10-16-2023 10:02-0400 Body weight 105.23 kg Purnima Brody [employer]UMENT [employer] GR[employer]ER[employer]CHIMNEY BUILDER Work Phone: [facility] 10-16-2023 10:02-0400 Diastolic blood pressure 79 mm[Hg] Purnima Brody IN[employer]UMENT [employer] GRINDER[employer]CHIMNEY BUILDER Work Phone: [facility] 10-16-2023 10:02-0400 Heart rate 108 /min Purnima Brody [employer]UMENT [employer] GR[employer]ER[employer]CHIMNEY BUILDER Work Phone: [facility] 10-16-2023 10:02-0400 Respiratory rate 16 /min Purnima Piña IN[employer]UMENT [employer]ENS GRINDER[employer]CHIMNEY BUILDER Work Phone: [facility] 10-16-2023 10:02-0400 SaO2% (BldA) [Mass fraction] 96 % Purnima Piña IN[employer]UMENT [employer] GRINDER-CHIMNEY BUILDER Work Phone: [facility] 10-16-2023 10:02-0400 Systolic blood pressure 117 mm[Hg] Purnima Piña [employer]UMENT [employer] GRINDER[employer]CHIMNEY BUILDER Work Phone: [facility] 10-15-2023 08:33-0400 Body height 156.2 cm Kingsley Hutchins MD Work Phone: [facility] 10-15-2023 08:33-0400 Body mass index (BMI) [Ratio] 43.24 kg/m2 Kingsley uHtchins MD Work Phone: [facility] 10-15-2023 08:33-0400 Body weight 105.51 kg Kingsley Hutchins MD Work Phone: [facility] 10-15-2023 08:33-0400 Diastolic blood pressure 68 mm[Hg] Kingsley Hutchins MD Work Phone: [facility] 10-15-2023 08:33-0400 Systolic blood pressure 108 mm[Hg] Kingsley Hutchins MD Work Phone: [facility] 2023 10:31-0400 Body mass index (BMI) [Ratio] 43.82 kg/m2 Bridger Edouard MD Work Phone: [facility] 2023 10:31-0400 Body weight 106.91 kg Bridger Edouard MD Work Phone: [facility] 2023 10:31-0400 Diastolic blood pressure 70 mm[Hg] Bridger Edouard MD Work Phone: [facility] 2023 10:31-0400 Heart rate 96 /min Bridger Edouard MD Work Phone: [facility] 2023 10:31-0400 SaO2% (BldA) [Mass fraction] 99 % Bridger Edouard MD Work Phone: [facility] 2023 10:31-0400 Systolic blood pressure 102 mm[Hg] Bridger Edouard MD Work Phone: [facility] 07-25-2023 11:15-0400 Diastolic blood pressure 71 mm[Hg] Leticia Thomae DO Work Phone: [facility] 07-25-2023 11:15-0400 Heart rate 79 /min Leticia Thomae DO Work Phone: [facility] 07-25-2023 11:15-0400 Respiratory rate 16 /min Leticia Thomae DO Work Phone: [facility] 07-25-2023 11:15-0400 SaO2% (BldA) [Mass fraction] 97 % Leticia Thomae DO Work Phone: [facility] 07-25-2023 11:15-0400 Systolic blood pressure 117 mm[Hg] Leticia Thomae DO Work Phone: [facility] 07-25-2023 10:30-0400 Body temperature 96.8 [degF] Leticia Thomae DO Work Phone: [facility] 07-25-2023 09:18-0400 Body height 156.2 cm Leticia Thomae DO Work Phone: [facility] 07-25-2023 09:18-0400 Body mass index (BMI) [Ratio] 43.62 kg/m2 Leticia Thomae DO Work Phone: [facility] 07-25-2023 09:18-0400 Body weight 106.41 kg Leticia Thomae DO Work Phone: [facility] 07-14-2023 15:22-0400 Body height 156.2 cm Bridger Edouard MD Work Phone: [facility] 07-14-2023 15:22-0400 Body mass index (BMI) [Ratio] 44.99 kg/m2 Bridger Edouard MD Work Phone: [facility] 07-14-2023 15:22-0400 Body weight 109.77 kg Bridger Edouard MD Work Phone: [facility] 07-14-2023 15:22-0400 Diastolic blood pressure 78 mm[Hg] Bridger Edouard MD Work Phone: [facility] 07-14-2023 15:22-0400 Heart rate 92 /min Bridger Edouard MD Work Phone: [facility] 07-14-2023 15:22-0400 SaO2% (BldA) [Mass fraction] 99 % Bridger Edouard MD Work Phone: [facility] 07-14-2023 15:22-0400 Systolic blood pressure 118 mm[Hg] Bridger Edouard MD Work Phone: [facility] 06-27-2023 10:58-0400 Body height 154.9 cm Jaclyn Clay MD Work Phone: [facility] 06-27-2023 10:58-0400 Body mass index (BMI) [Ratio] 45.57 kg/m2 Jaclyn Clay MD Work Phone: [facility] 06-27-2023 10:58-0400 Body weight 109.41 kg Jaclyn Clay MD Work Phone: [facility] 06-27-2023 10:58-0400 Diastolic blood pressure 78 mm[Hg] Jaclyn Clay MD Work Phone: [facility] 06-27-2023 10:58-0400 Heart rate 76 /min Jaclyn Clay MD Work Phone: [facility] 06-27-2023 10:58-0400 Systolic blood pressure 110 mm[Hg] Jaclyn Clay MD Work Phone: [facility] 06-18-2023 07:58-0400 Body height 155.6 cm Bridger Edouard MD Work Phone: [facility] 06-18-2023 07:58-0400 Body mass index (BMI) [Ratio] 44.98 kg/m2 Bridger Edouard MD Work Phone: [facility] 06-18-2023 07:58-0400 Body weight 108.86 kg Bridger Edouard MD Work Phone: [facility] 06-18-2023 07:58-0400 Diastolic blood pressure 72 mm[Hg] Bridger Edouard MD Work Phone: [facility] 06-18-2023 07:58-0400 Heart rate 80 /min Bridger Edouard MD Work Phone: [facility] 06-18-2023 07:58-0400 SaO2% (BldA) [Mass fraction] 98 % Bridger Edouard MD Work Phone: [facility] 06-18-2023 07:58-0400 Systolic blood pressure 104 mm[Hg] Bridger Edouard MD Work Phone: [facility] 05-30-2023 10:47-0400 Body height 154.[address] Dimitry Subramanian Work Phone: [facility] 05-30-2023 10:47-0400 Body mass index (BMI) [Ratio] 45.1 kg/m2 Dr. Dimitry Subramanian Work Phone: [facility] 05-30-2023 10:47-0400 Body temperature 98.5 [degF] Dr. Dimitry Subramanian Work Phone: [facility] 05-30-2023 10:47-0400 Body weight 108.[address] Dimitry Subramanian Work Phone: [facility] 05-30-2023 10:47-0400 Diastolic blood pressure 70 mm[Hg] Dr. Dimitry Subramanian Work Phone: [facility] 05-30-2023 10:47-0400 Heart rate 93 /min Dr. Dimitry Subramanian Work Phone: [facility] 05-30-2023 10:47-0400 Respiratory rate 17 /min Dr. Dimitry Subramanian Work Phone: [facility] 05-30-2023 10:47-0400 SaO2% (BldA) [Mass fraction] 97 % Dr. Dimitry Subramanian Work Phone: [facility] 05-30-2023 10:47-0400 Systolic blood pressure 138 mm[Hg] Dr. Dimitry Subramanian Work Phone: [facility] 04-25-2023 08:23-0400 Body height 154.9 cm Alexandra Raedy DO Work Phone: [facility] 04-25-2023 08:23-0400 Body mass index (BMI) [Ratio] 44.97 kg/m2 Alexandra Raedy DO Work Phone: [facility] 04-25-2023 08:23-0400 Body weight 107.96 kg Alexandra Raedy DO Work Phone: [facility] 04-25-2023 08:23-0400 Diastolic blood pressure 68 mm[Hg] Alexandra Raedy DO Work Phone: [facility] 04-25-2023 08:23-0400 Heart rate 93 /min Alexandra Raedy DO Work Phone: [facility] 04-25-2023 08:23-0400 Respiratory rate 18 /min Alexandra Raedy DO Work Phone: [facility] 04-25-2023 08:23-0400 SaO2% (BldA) [Mass fraction] 96 % Alexandra Raedy DO Work Phone: [facility] 04-25-2023 08:23-0400 Systolic blood pressure 110 mm[Hg] Alexandra Raedy DO Work Phone: [facility] 04-09-2023 07:51-0500 Body height 154.9 cm Jaclyn Meneses MD Work Phone: [facility] 04-09-2023 07:51-0500 Body mass index (BMI) [Ratio] 45.22 kg/m2 Jaclyn Meneses MD Work Phone: [facility] 04-09-2023 07:51-0500 Body weight 108.55 kg Jaclyn Meneses MD Work Phone: [facility] 04-09-2023 07:51-0500 Diastolic blood pressure 76 mm[Hg] Jaclyn Meneses MD Work Phone: [facility] 04-09-2023 07:51-0500 Heart rate 80 /min Jaclyn Meneses MD Work Phone: [facility] 04-09-2023 07:51-0500 SaO2% (BldA) [Mass fraction] 94 % Jaclyn Meneses MD Work Phone: [facility] 04-09-2023 07:51-0500 Systolic blood pressure 110 mm[Hg] Jaclyn Meneses MD Work Phone: [facility] 03-14-2023 14:07-0500 Body height 156.2 cm Bridger Edouard MD Work Phone: [facility] 03-14-2023 14:07-0500 Body mass index (BMI) [Ratio] 43.68 kg/m2 Bridger Edouard MD Work Phone: [facility] 03-14-2023 14:07-0500 Body temperature 100.4 [degF] Bridger Edouard MD Work Phone: [facility] 03-14-2023 14:07-0500 Body weight 106.59 kg Bridger Edouard MD Work Phone: [facility] 03-14-2023 14:07-0500 Diastolic blood pressure 64 mm[Hg] Bridger Edouard MD Work Phone: [facility] 03-14-2023 14:07-0500 Heart rate 108 /min Bridger Edouard MD Work Phone: [facility] 03-14-2023 14:07-0500 SaO2% (BldA) [Mass fraction] 96 % Bridger Edouard MD Work Phone: [facility] 03-14-2023 14:07-0500 Systolic blood pressure 110 mm[Hg] Bridger Edouard MD Work Phone: [facility] 02-13-2023 02:37-0500 Diastolic blood pressure 64 mm[Hg] Jaylin Ayala DO Work Phone: 4(067)023-366389 [place] [address] 02-13-2023 02:37-0500 Heart rate 86 /min Jaylin Ayala DO Work Phone: 3(732)988-951289 [place] [address] 02-13-2023 02:37-0500 Respiratory rate 18 /min Jaylin Ayala DO Work Phone: 7(161)580-604889 [place] [address] 02-13-2023 02:37-0500 SaO2% (BldA) [Mass fraction] 96 % Jaylin Ayala DO Work Phone: 9(721)953-223489 [place] [address] 02-13-2023 02:37-0500 Systolic blood pressure 111 mm[Hg] Jaylin Ayala DO Work Phone: 9(838)764-753089 [place] [address] 02-12-2023 22:45-0500 Body height 154.9 cm Jaylin Ayala DO Work Phone: 2(148)571-918689 [place] [address] 02-12-2023 22:45-0500 Body mass index (BMI) [Ratio] 45.35 kg/m2 Jaylin Ayala DO Work Phone: 9(633)456-974889 [place] [address] 02-12-2023 22:45-0500 Body temperature 97.2 [degF] Jaylin Ayala DO Work Phone: 2(612)025-554289 [place] [address] 02-12-2023 22:45-0500 Body weight 108.86 kg Jaylin Ayala DO Work Phone: 1(357)350-098889 [place] [address] 02-08-2023 06:31-0500 Diastolic blood pressure 74 mm[Hg] Jim Escobedo MD Work Phone: [facility] 02-08-2023 06:31-0500 Heart rate 75 /min Jim Escobedo MD Work Phone: [facility] 02-08-2023 06:31-0500 Respiratory rate 16 /min Jim Escobedo MD Work Phone: [facility] 02-08-2023 06:31-0500 SaO2% (BldA) [Mass fraction] 95 % Jim Escobedo MD Work Phone: [facility] 02-08-2023 06:31-0500 Systolic blood pressure 116 mm[Hg] Jim Escobedo MD Work Phone: [facility] 02-08-2023 05:36-0500 Body height 154.9 cm Jim Escobedo MD Work Phone: [facility] 02-08-2023 05:36-0500 Body mass index (BMI) [Ratio] 45.35 kg/m2 Jim Escobedo MD Work Phone: [facility] 02-08-2023 05:36-0500 Body temperature 98.91 [degF] Jim Escobedo MD Work Phone: [facility] 02-08-2023 05:36-0500 Body weight 108.86 kg Jim Escobedo MD Work Phone: [facility] 01-17-2023 09:08-0500 Body height 155 cm Abram Montes MD Work Phone: [facility] 01-17-2023 09:08-0500 Body mass index (BMI) [Ratio] 44.75 kg/m2 Abram Montes MD Work Phone: [facility] 01-17-2023 09:08-0500 Body weight 107.5 kg Abram Montes MD Work Phone: [facility] 10-25-2022 08:27-0400 Body height 154.9 cm Alexandra Raedy DO Work Phone: [employer] 10-25-2022 08:27-0400 Body mass index (BMI) [Ratio] 45.54 kg/m2 Alexandra Raedy DO Work Phone: [facility] 10-25-2022 08:27-0400 Body weight 109.32 kg Alexandra Raedy DO Work Phone: [facility] [employer] [facility] 10-25-2022 08:27-0400 Diastolic blood pressure 70 mm[Hg] Alexandra Raedy DO Work Phone: [facility] [employer] [facility] 10-25-2022 08:27-0400 Heart rate 83 /min Alexandra Raedy DO Work Phone: [facility] 10-25-2022 08:27-0400 Respiratory rate 16 /min Alexandra Raedy DO Work Phone: [facility] 10-25-2022 08:27-0400 SaO2% (BldA) [Mass fraction] 97 % Alexandra Raedy DO Work Phone: [facility] 10-25-2022 08:27-0400 Systolic blood pressure 120 mm[Hg] Alexandra Raedy DO Work Phone: [facility] 09-27-2022 08:29-0400 Body height 154.94 cm Forrest Nag S Mallapareddi Work Phone: [facility] Work Phone: 09-27-2022 08:29-0400 Body mass index (BMI) [Ratio] 45.15 kg/m2 Forrest Nag S Mallapareddi Work Phone: [facility] Work Phone: 09-27-2022 08:29-0400 Body surface area Derived from formula 2.04 m2 Forrest Nag S Mallapareddi Work Phone: [address] Work Phone: 09-27-2022 08:29-0400 Body weight 108.4 kg Forrest Gandhi Mallapareddi Work Phone: [address] Work Phone: 09-27-2022 08:29-0400 Diastolic blood pressure 70 mm[Hg] Forrest Mayen S Mallapareddi Work Phone: [address] Work Phone: 09-27-2022 08:29-0400 Systolic blood pressure 118 mm[Hg] Forrest Mayen S Mallapareddi Work Phone: [address] Work Phone: 05-27-2022 08:12-0400 Body temperature 209.48 [degF] Forrest Mayen S Mallapareddi Work Phone: [facility] [address] Work Phone: 04-08-2022 15:51-0500 Body temperature 206.96 [degF] Forrest Faheem S Mallapareddi Work Phone: [facility] [address] Work Phone: 02-20-2022 08:04-0500 Body height 154.94 cm Forrest Mayen S Mallapareddi Work Phone: [facility] [address] Work Phone: 02-20-2022 08:04-0500 Body mass index (BMI) [Ratio] 44.8 kg/m2 Forrest Nag S Mallapareddi Work Phone: [facility] [address] Work Phone: 02-20-2022 08:04-0500 Body surface area Derived from formula 2.03 m2 Forrest Nag S Mallapareddi Work Phone: [facility] [address] Work Phone: 02-20-2022 08:04-0500 Body temperature 205.16 [degF] Forrest Nag S Mallapareddi Work Phone: [facility] [address] Work Phone: 02-20-2022 08:04-0500 Body weight 107.56 kg Forrest Nag S Mallapareddi Work Phone: [facility] [address] Work Phone: 01-31-2022 09:24-0500 Body height 154.94 cm Forrest Nag S Mallapareddi Work Phone: [facility] Work Phone: 01-31-2022 09:24-0500 Body mass index (BMI) [Ratio] 44.97 kg/m2 Forrest Nag S Mallapareddi Work Phone: [facility] Work Phone: 01-31-2022 09:24-0500 Body surface area Derived from formula 2.03 m2 Forrest Nag S Mallapareddi Work Phone: [facility] Work Phone: 01-31-2022 09:24-0500 Body temperature 99.3 [degF] Forrest Nag S Mallapareddi Work Phone: [facility] Work Phone: 01-31-2022 09:24-0500 Body weight 107.95 kg Forrest Nag S Mallapareddi Work Phone: [facility] Work Phone: 01-31-2022 09:24-0500 Diastolic blood pressure 68 mm[Hg] Forrest Nag S Mallapareddi Work Phone: [facility] Work Phone: 01-31-2022 09:24-0500 Heart rate 80 /min Forrest Nag S Mallapareddi Work Phone: [facility] Work Phone: 01-31-2022 09:24-0500 Systolic blood pressure 110 mm[Hg] Forrest Meeksapareddi Work Phone: [facility] Work Phone: 01-09-2022 08:16-0500 Body height 154.9 cm Jaclyn Meneses MD Work Phone: [facility] 01-09-2022 08:16-0500 Body mass index (BMI) [Ratio] 44.97 kg/m2 Jaclyn Meneses MD Work Phone: [facility] 01-09-2022 08:16-0500 Body weight 107.96 kg Jaclyn Meneses MD Work Phone: [facility] 01-09-2022 08:16-0500 Diastolic blood pressure 73 mm[Hg] Jaclyn Meneses MD Work Phone: [facility] 01-09-2022 08:16-0500 Systolic blood pressure 108 mm[Hg] Jaclyn Meneses MD Work Phone: [facility] 10-26-2021 08:25-0400 Body height 154.9 cm Alexandra Raedy DO Work Phone: [facility] 10-26-2021 08:25-0400 Body mass index (BMI) [Ratio] 45.54 kg/m2 Alexandra Raedy DO Work Phone: [facility] [facility] 10-26-2021 08:25-0400 Body weight 109.32 kg Alexandra Raedy DO Work Phone: [facility] 10-26-2021 08:25-0400 Diastolic blood pressure 90 mm[Hg] Alexandra Raedy DO Work Phone: [facility] 10-26-2021 08:25-0400 Heart rate 82 /min Alexandra Raedy DO Work Phone: [facility] 10-26-2021 08:25-0400 Respiratory rate 16 /min Alexandra Raedy DO Work Phone: [facility] 10-26-2021 08:25-0400 SaO2% (BldA) [Mass fraction] 97 % Alexandra Samuelsedy DO Work Phone: [facility] 10-26-2021 08:25-0400 Systolic blood pressure 140 mm[Hg] Alexandra Samuelsedy DO Work Phone: [facility] 09-17-2021 15:31-0400 Body height 154.94 cm Forrest Nag S Mallapareddi Work Phone: [place] [facility] [place] Work Phone: 09-17-2021 15:31-0400 Body mass index (BMI) [Ratio] 44.86 kg/m2 Forrest Nag S Mallapareddi Work Phone: [employer] Work Phone: 09-17-2021 15:31-0400 Body surface area Derived from formula 2.03 m2 Forrest Nag S Mallapareddi Work Phone: [place] [facility] [place] Work Phone: 09-17-2021 15:31-0400 Body weight 107.7 kg Forrest Nag S Mallapareddi Work Phone: [employer] [place] [address] [place] Work Phone: 09-17-2021 15:31-0400 Diastolic blood pressure 72 mm[Hg] Forrest Nag S Mallapareddi Work Phone: [employer] [place] Work Phone: 09-17-2021 15:31-0400 Systolic blood pressure 114 mm[Hg] Forrest Nag S Mallapareddi Work Phone: [employer] [place] Work Phone: 09-17-2021 15:31-0400 10 1 Forrest Nag S Mallapareddi Work Phone: [place] [address] [place] Work Phone: Comment on above: PHQ-9 TS 07-10-2021 14:40-0400 Body height 154.94 cm Forrest Nag S Mallapareddi Work Phone: [place] [address] [place] Work Phone: 07-10-2021 14:40-0400 Body mass index (BMI) [Ratio] 45.32 kg/m2 Forrest Nag S Mallapareddi Work Phone: [place] [address] [place] Work Phone: 07-10-2021 14:40-0400 Body surface area Derived from formula 2.04 m2 Forrest Nag S Mallapareddi Work Phone: [place] [address] [place] Work Phone: 07-10-2021 14:40-0400 Body weight 108.8 kg Forrest Nag S Mallapareddi Work Phone: [place] [address] [place] Work Phone: 07-10-2021 14:40-0400 Diastolic blood pressure 70 mm[Hg] Forrest Nag S Mallapareddi Work Phone: [place] [address] [place] Work Phone: 07-10-2021 14:40-0400 Systolic blood pressure 112 mm[Hg] Forrest Nag S Mallapareddi Work Phone: [place] [address] [place] Work Phone: 07-03-2021 08:49-0400 Body height 154.94 cm Forrest Nag S Mallapareddi Work Phone: [facility] Work Phone: 07-03-2021 08:49-0400 Body mass index (BMI) [Ratio] 44.8 kg/m2 Forrest Nag S Mallapareddi Work Phone: [facility] Work Phone: 07-03-2021 08:49-0400 Body surface area Derived from formula 2.03 m2 Forrest Nag S Mallapareddi Work Phone: [facility] Work Phone: 07-03-2021 08:49-0400 Body weight 107.56 kg Forrest Nag S Mallapareddi Work Phone: [facility] Work Phone: 07-03-2021 08:49-0400 Diastolic blood pressure 68 mm[Hg] Forrest Nag S Mallapareddi Work Phone: [facility] Work Phone: 07-03-2021 08:49-0400 Heart rate 80 /min Forrest Nag S Mallapareddi Work Phone: [facility] Work Phone: 07-03-2021 08:49-0400 Systolic blood pressure 92 mm[Hg] Forrest Nag S Mallapareddi Work Phone: [facility] Work Phone: 02-16-2021 15:14-0500 Body height 155 cm Forrest Nag Mallapareddi [facility] 02-16-2021 15:14-0500 Body temperature 96.62 [degF] Forrest Nag Mallapareddi [facility] 02-16-2021 15:14-0500 Diastolic blood pressure 91 mm[Hg] Forrest Nag Mallapareddi [facility] 02-16-2021 15:14-0500 Heart rate 71 /min Forrest Nag Mallapareddi [facility] 02-16-2021 15:14-0500 SaO2% (BldA) [Mass fraction] 99 % Forrest Nag Mallapareddi [facility] 02-16-2021 15:14-0500 Systolic blood pressure 131 mm[Hg] Forrest Nag Mallapareddi [facility] 09-15-2020 14:14-0400 Body height 154.94 cm Forrest Nag S Mallapareddi Work Phone: [place] [address] [place] Work Phone: 09-15-2020 14:14-0400 Body mass index (BMI) [Ratio] 45.57 kg/m2 Forrest Gandhi Mallapareddi Work Phone: [employer] [address] [place] Work Phone: 09-15-2020 14:14-0400 Body surface area Derived from formula 2.05 m2 Forrest Gandhi Mallapareddi Work Phone: [place] [address] [place] Work Phone: 09-15-2020 14:14-0400 Body temperature 98.6 [degF] Forrest Gandhi Mallapareddi Work Phone: [employer] [address] [place] Work Phone: 09-15-2020 14:14-0400 Body weight 109.4 kg Forrest Gandhi Mallapareddi Work Phone: [place] [address] [place] Work Phone: 09-15-2020 14:14-0400 Diastolic blood pressure 68 mm[Hg] Forrest Gandhi Mallapareddi Work Phone: [employer] [address] [place] Work Phone: 09-15-2020 14:14-0400 Systolic blood pressure 104 mm[Hg] Forrest Gandhi Mallapareddi Work Phone: [employer] [address] [place] Work Phone: 05-01-2020 09:46-0400 BMI (Body Mass Index) 44.45 kg/m2 Jerson Luciano II JT-[facility]ig[facility] Work Phone: 05-01-2020 09:46-0400 Body weight 106.71 kg Jerson Castrok II HE-Tbwyrql-Ieosr nd Work Phone: 05-01-2020 09:46-0400 BSA (Body Surface Area) 2.02 m2 Jerson Luciano II GY-Ezjbmjg-Bgkzqzq Work Phone: 05-01-2020 09:46-0400 Height 154.94 cm Jerson Luciano II LT-Klecvmq-Hihhx nd Work Phone: 11-01-2019 10:21-0400 BMI (Body Mass Index) 44.97 kg/m2 Jerson Luciano II [facility] [address] [place] Work Phone: 11-01-2019 10:21-0400 Body weight 107.96 kg Jerson Luciano II [facility] [address] [place] Work Phone: 11-01-2019 10:21-0400 BP Diastolic 78 mm[Hg] Jerson Luciano II [facility] [address] [place] Work Phone: 11-01-2019 10:21-0400 BP Systolic 148 mm[Hg] Jerson Luciano II [facility] [address] [place] Work Phone: 11-01-2019 10:21-0400 BSA (Body Surface Area) 2.03 m2 Jerson Luciano II [facility] [address] [place] Work Phone: 11-01-2019 10:21-0400 Height 154.94 cm Jerson Luciano II [facility] [address] [place] Work Phone: 11-01-2019 10:21-0400 Pulse (Heart Rate) 84 /min Jerson Luciano II [facility] [address] [place] Work Phone: 10-29-2019 08:16-0400 BMI (Body Mass Index) 45.1 kg/m2 [facility] 10-29-2019 08:16-0400 Body Temperature 98.1 [degF] [facility] 10-29-2019 08:16-0400 Body weight 108.27 kg [facility] 10-29-2019 08:16-0400 BP Diastolic 69 mm[Hg] [facility] 10-29-2019 08:16-0400 BP Systolic 116 mm[Hg] [facility] 10-29-2019 08:16-0400 Height 154.9 cm [facility] 10-29-2019 08:16-0400 Pulse (Heart Rate) 85 /min [facility] 10-29-2019 08:16-0400 Pulse Oximetry 98 % [facility] 10-29-2019 08:16-0400 Respiratory Rate 16 /min [facility] 09-14-2019 16:04-0400 BMI (Body Mass Index) 44.34 kg/m2 [facility] [address] [place] Work Phone: 09-14-2019 16:04-0400 Body Temperature 97.3 [degF] Kingsley Hutchins [facility] nura [address] [place] Work Phone: 09-14-2019 16:04-0400 Body weight 108.2 kg [facility]ins [facility] [address] [place] Work Phone: 09-14-2019 16:04-0400 BP Diastolic 72 mm[Hg] [facility]ley Hutchins [facility] [address] [place] Work Phone: 09-14-2019 16:04-0400 BP Systolic 118 mm[Hg] [facility]ley [facility] jayne [address] [place] Work Phone: 09-14-2019 16:04-0400 BSA (Body Surface Area) 2.05 m2 Kingsley Hutchins [facility] [address] [place] Work Phone: 09-14-2019 16:04-0400 Height 156.21 cm [facility] Hutchins [facility] [address] [place] Work Phone: 06-22-2019 14:39-0400 BMI (Body Mass Index) 44.65 kg/m2 Dimitry Subramanian [facility] Work Phone: 06-22-2019 14:39-0400 Body Temperature 98.4 [degF] Dimitry Subramanian [facility] Work Phone: 06-22-2019 14:39-0400 Body weight 108.94 kg D[facility]ry [facility] Work Phone: 06-22-2019 14:39-0400 BP Diastolic 78 mm[Hg] [facility] Work Phone: 06-22-2019 14:39-0400 BP Systolic 128 mm[Hg] Dimitry Subramanian [facility] Work Phone: 06-22-2019 14:39-0400 BSA (Body Surface Area) 2.05 m2 D[facility] Work Phone: 06-22-2019 14:39-0400 Height 156.2 cm [facility] Work Phone: 06-22-2019 14:39-0400 Pulse (Heart Rate) 88 /min Dimitry [facility] Work Phone: 02-18-2019 12:01-0500 BMI (Body Mass Index) 44.24 kg/m2 Lisy Staton [facility] Work Phone: 02-18-2019 12:01-0500 Body Temperature 98.8 [degF] [facility]isy [facility] Work Phone: 02-18-2019 12:01-0500 Body weight 107.96 kg Lisy Staton [facility] Work Phone: 02-18-2019 12:01-0500 BP Diastolic 68 mm[Hg] Lisy Staton [facility] Work Phone: Comment on above: Location: [place]; 02-18-2019 12:01-0500 BP Systolic 126 mm[Hg] Lisy Staton [facility] Work Phone: Comment on above: Location: [place]; 02-18-2019 12:01-0500 BSA (Body Surface Area) 2.05 m2 Lisy Staton [facility] Work Phone: 02-18-2019 12:01-0500 Height 156.21 cm Lisy [facility] Work Phone: 02-18-2019 12:01-0500 Pulse (Heart Rate) 84 /min Lisy sta[facility] Work Phone: 10-29-2018 07:40-0400 BMI (Body Mass Index) 44.29 kg/m2 Farideh Hendersonnybrianna [facility] 10-29-2018 07:40-0400 Body weight 106.32 kg Farideh [facility] 10-29-2018 07:40-0400 BP Diastolic 70 mm[Hg] [facility] 10-29-2018 07:40-0400 BP Systolic 104 mm[Hg] [facility] 10-29-2018 07:40-0400 Height 154.9 cm [facility] 10-29-2018 07:40-0400 Pulse (Heart Rate) 81 /min [facility] 10-29-2018 07:40-0400 Pulse Oximetry 96 % [facility] 10-29-2018 07:40-0400 Respiratory Rate 16 /min [facility] 10-23-2018 08:10-0400 BMI (Body Mass Index) 44.59 kg/m2 [facility] 10-23-2018 08:10-0400 Body weight 107.05 kg [facility] 10-23-2018 08:10-0400 BP Diastolic 78 mm[Hg] [facility] [facility] [facility] 10-23-2018 08:10-0400 BP Systolic 132 mm[Hg] [facility] 10-23-2018 08:10-0400 Height 154.9 cm AlexandraRadisens DiagnosticsIN[facility] 10-23-2018 08:10-0400 Pulse (Heart Rate) 77 /min [facility] 10-23-2018 08:10-0400 Pulse Oximetry 98 % [facility] 10-23-2018 08:10-0400 Respiratory Rate 18 /min [employer] 10-06-2017 15:42-0400 BMI (Body Mass Index) 41.95 kg/m2 [facility] 10-06-2017 15:42-0400 BP Diastolic 57 mm[Hg] [facility] 10-06-2017 15:42-0400 BP Systolic 113 mm[Hg] [facility] 10-06-2017 15:42-0400 Height 154.9 cm [facility] 10-06-2017 15:42-0400 Pulse (Heart Rate) 69 /min [facility] 10-06-2017 15:42-0400 Pulse Oximetry 98 % [facility] 10-06-2017 15:42-0400 Weight 100.7 kg [facility] 12-30-2016 14:43-0500 BMI (Body Mass Index) 42.32 kg/m2 [facility] Work Phone: 12-30-2016 14:43-0500 Body Temperature 99.6 [degF] [facility] Work Phone: 12-30-2016 14:43-0500 BP Diastolic 74 mm[Hg] Chiquita [employer] [facility] [place] Work Phone: 12-30-2016 14:43-0500 BP Systolic 107 mm[Hg] Chiquita [place] [facility] [place] Work Phone: 12-30-2016 14:43-0500 Height 154.94 cm [facility] Work Phone: 12-30-2016 14:43-0500 Pulse (Heart Rate) 89 /min [employer] [employer] [facility] [place] Work Phone: 12-30-2016 14:43-0500 Respiratory Rate 18 /min Chiquita [place] [facility] [place] Work Phone: 12-30-2016 14:43-0500 Weight 101.61 kg [facility] Work Phone: 10-07-2016 13:23-0400 BMI (Body Mass Index) 41.81 kg/m2 [facility] 10-07-2016 13:-040 BP Diastolic 76 mm[Hg] [facility] Work Phone: 10-07-2016 13:-0400 BP Systolic 105 mm[Hg] Jaclyn Meneses [facility] Work Phone: 10-07-2016 13:-040 Height 154.9 cm Jaclyn Meneses [facility] Work Phone: 10-07-2016 13:-040 Pulse (Heart Rate) 89 /min [facility] Work Phone: 10-07-2016 13:-040 Pulse Oximetry 97 % Jaclyn Meneses [facility] Work Phone: 10-07-2016 13:-040 Weight 100.38 [facility] Work Phone: 08-14-2016 14:10-0400 BMI (Body Mass Index) 41.75 kg/m2 Rabia Yensho [employer] [facility] [place] Phone: 08-14-2016 14:10-0400 Body Temperature 99.8 [degF] Rabia Yensho [employer] [facility] Work Phone: 08-14-2016 14:10-0400 BP Diastolic 74 mm[Hg] Rabia Yensho [employer] [facility] Work Phone: 08-14-2016 14:10-0400 BP Systolic 119 mm[Hg] Rabia Yensho [employer] [facility] Work Phone: 08-14-2016 14:10-0400 Height 154.94 cm Rabia Yensho [employer] [facility] Work Phone: 08-14-2016 14:10-0400 Pulse (Heart Rate) 75 /min Rabia Yensho [employer] [facility] Work Phone: 08-14-2016 14:10-0400 Respiratory Rate 18 /min Rabia Yensho [employer] [facility] [place] Work Phone: 08-14-2016 14:10-0400 Weight 100.25 kg Rabia Yensho [employer] [facility] [place] Work Phone: 03-27-2016 07:48-0500 Body Temperature 98.42 [degF] Rabia Yensho [employer] [facility] Work Phone: 03-27-2016 07:48-0500 BSA (Body Surface Area) 1.97 m2 Rabia Yensho [employer] [facility] [place] Work Phone: 03-27-2016 07:48-0500 Height 154.94 cm Rabia Yensho [employer] [facility] Work Phone: 03-27-2016 07:48-0500 Weight 100 kg Rabia Yensho [employer] [facility] [place] Work Phone: Encounters Encounter Date Encounter Type Care Provider Facility Start: 07-23-2024 End: 07-23-2024 Office outpatient visit 15 minutes Golden Maradiaga MD Work Phone: [facility] Comment on above: Primary osteoarthrit is of right knee; Bilateral chronic knee pain Start: 07-23-2024 End: 07-23-2024 ambulatory [facility] Start: 07-23-2024 End: 07-23-2024 Office outpatient visit 25 minutes Alexandra Norton DO Work Phone: [facility] Comment on above: Intractable migraine without aura and without status migrainosus (Primary Dx) Start: 07-23-2024 End: 07-23-2024 Subsequent hospital visit by physician [facility] Ultrasound [facility] [employer] [employer] [facility] Comment on above: Arrived Start: 07-23-2024 End: 07-23-2024 [facility] Start: 07-20-2024 End: 07-20-2024 Patient encounter procedure Jose Alvarez MD Work Phone: [facility] Comment on above: Intractable migraine without aura and without status migrainosus (Primary Dx) Start: 07-20-2024 ambulatory [facility] Start: 07-01-2024 End: 07-01-2024 ambulatory [facility] Start: 06-28-2024 End: 06-28-[address] Dimitry Subramanian MD Work Phone: [facility] Work Phone: Start: 06-28-2024 End: 06-28-[address] Loraine Mancilla MD [facility] [place] Work Phone: Start: 06-28-2024 End: 06-28-2024 ambulatory Loraine Mancilla Facility:[facility] Start: 06-04-2024 End: 06-04-2024 Patient encounter procedure Golden Maradiaga MD Work Phone: [facility] Comment on above: Primary osteoarthrit is of right knee Start: 06-04-2024 End: 06-04-2024 Subsequent hospital visit by physician Point Of Care Ultrasound [facility] [employer] [employer] [facility] Comment on above: Arrived Start: 06-04-2024 End: 06-04-[address] [facility] Start: 05-28-2024 End: 05-28-2024 Patient encounter procedure Golden Maradiaga MD Work Phone: [facility] Comment on above: Primary osteoarthrit is of right knee Start: 05-28-2024 End: 05-28-2024 Subsequent hospital visit by physician Point Of Care Ultrasound [facility] [employer] [employer] [facility] Comment on above: Arrived Start: 05-28-2024 End: 05-28-[address] [facility] Start: 05-21-2024 End: 05-21-2024 Office outpatient visit 25 minutes Golden Maradiaga MD Work Phone: [facility] Comment on above: Primary osteoarthrit is of right knee Start: 05-21-2024 End: 05-21-2024 Subsequent hospital visit by physician Point Of Care Ultrasound [facility] [employer] [employer] [facility] Comment on above: Arrived Start: 05-21-2024 End: 05-21-[address] [facility] Start: 05-06-2024 End: 05-06-2024 Office outpatient visit 25 minutes Golden Maradiaga MD Work Phone: [facility] Comment on above: Primary osteoarthrit is of right knee Start: 05-06-2024 End: 05-06-2024 Subsequent hospital visit by physician Mani [id number] X-Ray [facility] Comment on above: Primary osteoarthrit is of right knee Start: 05-06-2024 End: 05-06-2024 ambulatory [facility] Start: 05-06-2024 End: 05-06-2024 Subsequent hospital visit by physician Point Of Care Ultrasound [facility] [employer] Comment on above: Arrived Start: 05-06-2024 End: 05-06-[address] [facility] Start: 04-16-2024 End: 04-16-2024 Patient encounter procedure Jose Alvarez MD Work Phone: [facility] Comment on above: Intractable migraine without aura and without status migrainosus (Primary Dx) Start: 04-16-2024 ambulatory JOSE ALVAREZ [facility] Start: 03-25-2024 End: 03-25-2024 Office outpatient visit 25 minutes Golden Maradiaga MD Work Phone: [facility] Comment on above: Primary osteoarthrit is of right knee Start: 03-25-2024 End: 03-25-2024 ambulatory [facility] Amb[facility] Start: 03-25-2024 End: 03-25-2024 Subsequent hospital visit by physician Point Of Care Ultrasound [facility] [employer] Comment on above: Arrived Start: 03-25-2024 End: 03-25-[address] [facility] Start: 02-02-2024 End: 02-02-2024 ambulatory [facility] Start: 01-29-2024 End: 01-29-2024 ambulatory [facility] Start: 01-27-2024 End: 01-27-2024 ambulatory [facility] Start: 01-23-2024 End: 01-23-2024 Office outpatient visit 15 minutes Dimitry Subramanian MD Work Phone: [facility] Comment on above: Bronchitis (Primary Dx) Start: 01-23-2024 End: 01-23-2024 ambulatory DIMITRY [facility] Ambulatory Start: 01-23-2024 End: 01-23-2024 Office outpatient visit 25 minutes Alexandra Norton DO Work Phone: [employer] [facility] Comment on above: Intractable migraine without aura and without status migrainosus (Primary Dx); Non-traumatic rhabdomyolysis Start: 01-23-2024 ambulatory ALEXANDRA NORTON [facility] Start: 01-22-2024 End: 01-22-2024 ambulatory [facility] Start: 01-20-2024 End: 01-20-2024 ambulatory [facility] Start: 01-14-2024 End: 01-14-2024 Patient encounter procedure Gaston Verde [employer]UMENT [employer]ENS GRINDER-CHIMNEY BUILDER Work Phone: [facility] Comment on above: Acute bronchitis, un specified organism (Primary Dx) Start: 01-14-2024 End: 01-14-2024 ambulatory [facility] Start: 01-06-2024 End: 01-06-2024 Patient encounter procedure Jose Alvarez MD Work Phone: [facility] Comment on above: Intractable migraine without aura and without status migrainosus (Primary Dx) Start: 01-06-2024 ambulatory JOSE ALVAREZ [facility] Start: 01-01-2024 End: 01-01-2024 ambulatory ANETTE Murray [facility] Start: 01-01-2024 End: 01-01-2024 ambulatory BRIDGER Brianna [facility] Start: 01-01-2024 End: 01-01-2024 Office outpatient visit 25 minutes Bridger Edouard MD Work Phone: [facility] Comment on above: Generalized weakness (Primary Dx); Non-traumatic rhabdomyolysis; Fatty liver; Primary osteoarthritis of right knee; Class 3 severe obesity due to excess calories without serious comorbidity with body mass index (BMI) of 40.0 to 44.9 in adult Start: 01-01-2024 End: 01-01-2024 ambulatory [facility] Ambulatory Start: 12-25-2023 End: 12-25-2023 Office outpatient visit 25 minutes Elif Miller APRN-CHIMNEY BUILDER Work Phone: [facility] Comment on above: Primary osteoarthrit is of right knee (Primary Dx) Start: 12-25-2023 End: 12-25-2023 ambulatory ELIF Murray [facility] Start: 12-25-2023 End: 12-25-2023 ambulatory [facility] Start: 12-23-2023 End: 12-23-2023 ambulatory [facility] Start: 12-18-2023 End: 12-18-2023 ambulatory [facility] Start: 12-16-2023 End: 12-16-2023 Subsequent hospital visit by physician Mani Dixon [address] [facility] Comment on above: Elevated troponin I level; Non-traumatic rhabdomyolysis Start: 12-16-2023 End: 12-16-2023 ambulatory [facility] Start: 12-15-2023 End: 12-15-2023 ambulatory [facility] Start: 12-11-2023 End: 12-11-2023 ambulatory Dimitry Subramanian Facility:[facility] Start: 12-10-2023 End: 12-10-2023 ambulatory [facility] Start: 12-08-2023 End: 12-08-2023 ambulatory [facility] Start: 12-05-2023 End: 12-05-2023 ambulatory [facility] Start: 12-04-2023 End: 12-04-2023 ambulatory [facility] Start: 12-02-2023 End: 12-02-2023 ambulatory [facility] Start: 12-01-2023 End: 12-01-2023 Office outpatient visit 15 minutes Bridger Edouard MD Work Phone: [facility] Comment on above: Non-traumatic rhabdo myolysis (Primary Dx); Weakness of both hips Start: 12-01-2023 End: 12-01-2023 ambulatory [facility] Start: 11-27-2023 End: 11-[facility] Start: 11-20-2023 End: 11-20-2023 ambulatory [facility] Start: 11-18-2023 End: 11-18-[address] [facility] Facility:[facility] Start: 11-13-2023 End: 11-13-2023 ambulatory [facility] Start: 11-12-2023 End: 11-12-2023 Subsequent hospital visit by physician Mani [id number] Mammo [facility] Comment on above: Encounter for screen ing mammogram for malignant neoplasm of breast Start: 11-12-2023 End: 11-12-2023 ambulatory KINGSLEY Yeh [facility] Start: 11-10-2023 End: 11-10-2023 Office outpatient visit 15 minutes Debby Fajardo DO Work Phone: [facility] Comment on above: Non-traumatic rhabdo myolysis (Primary Dx) Start: 11-10-2023 End: 11-10-2023 ambulatory DEBBY FAJARDO [facility] Ambulatory Start: 11-07-2023 End: 11-07-2023 ambulatory [facility] Start: 11-06-2023 End: 11-06-2023 ambulatory [facility] Start: 11-06-2023 End: 11-06-2023 Transitional care manage srvc 14 day discharge Bridger Edouard MD Work Phone: [facility] Comment on above: Hospital discharge f ollow-up (Primary Dx); Non-traumatic rhabdomyolysis; Fatty liver Start: 11-06-2023 End: 11-06-2023 ambulatory [facility] Ambulatory Start: 10-26-2023 End: 10-29-2023 ambulatory [facility] Start: 10-26-2023 End: 10-29-2023 Evaluation and management of inpatient Jim Escobedo MD Work Phone: [facility] Comment on above: Traumatic rhabdomyol ysis, subsequent encounter (Primary Dx) Start: 10-24-2023 End: 10-24-2023 Office outpatient visit 25 minutes Alexandra Norton DO Work Phone: [facility] Comment on above: Intractable migraine without aura and without status migrainosus (Primary Dx) Start: 10-24-2023 ambulatory [facility] Start: 10-23-2023 End: 10-23-2023 Transitional care manage srvc 14 day discharge Bridger Edouard MD Work Phone: [facility] Comment on above: Hospital discharge f ollow-up (Primary Dx); Non-traumatic rhabdomyolysis; Migraine without aura and without status migrainosus, not intractable Start: 10-23-2023 End: 10-23-2023 ambulatory [facility] Amb[facility] Start: 10-17-2023 End: 10-21-2023 Evaluation and management of inpatient Carrie Alejo DO Work Phone: [facility] Comment on above: Rhabdomyolysis (Prim yelitza Dx); Acute pain of right knee; High cholesterol; Elevated troponin Start: 10-16-2023 End: 10-16-2023 Patient encounter procedure Purnima Cerda Brody INSTRUMENT LENS GRINDER-CHIMNEY BUILDER Work Phone: [facility] Comment on above: Viral syndrome (Prim yelitza Dx) Start: 10-16-2023 End: 10-16-2023 ambulatory BRIDGER EDOUARD [facility] Start: 10-15-2023 End: 10-15-2023 Patient encounter status Kingsley Hutchins MD Work Phone: [facility] Work Phone: Start: 10-15-2023 End: 10-15-2023 Periodic preventive med est patient 40-64yrs Kingsley Hutchins MD Work Phone: [facility] Comment on above: Depression, unspecif ied depression type (Primary Dx); Encounter for screening mammogram for malignant neoplasm of breast; Encounter for gynecological examination without abnormal finding; Vaginal Pap smear Start: 10-15-2023 End: 10-15-2023 ambulatory [facility] Ambulatory Start: 10-15-2023 End: 10-15-2023 Encounter for gynecological examination (general) (routine) without abnormal findings [facility] Start: 10-02-2023 End: 10-02-2023 Patient encounter procedure Jose Alvarez MD Work Phone: [facility] Neurology Comment on above: Intractable migraine without aura and without status migrainosus (Primary Dx) Start: 10-02-2023 ambulatory JOSE ALVAREZ [facility] Start: 09-24-2023 End: 09-24-2023 Subsequent hospital visit by physician [facility]TERNAL [facility] Comment on above: Arrived Start: 09-24-2023 End: 09-24-2023 Office outpatient visit 25 minutes Elif Miller INSTRUMENT LENS GRINDER-CHIMNEY BUILDER Work Phone: [facility] Comment on above: Primary osteoarthrit is of right knee (Primary Dx); Acute pain of right knee Start: 09-24-2023 End: 09-24-2023 ambulatory ELIF MILLER [facility] Start: 09-11-2023 End: 09-11-2023 ambulatory [facility] Start: 2023 End: 2023 Office outpatient visit 15 minutes Bridger Edouard MD Work Phone: [facility] Comment on above: Non-healing skin les ion of nose (Primary Dx); Class 3 severe obesity due to excess calories without serious comorbidity with body mass index (BMI) of 40.0 to 44.9 in adult (Multi) Start: 2023 End: 2023 ambulatory [facility] Start: 07-25-2023 End: 07-25-2023 Subsequent hospital visit by physician Leticia Jauregui DO Work Phone: [facility] Comment on above: Colon cancer screeni ng Start: 07-25-2023 End: 07-25-2023 ambulatory [facility] Start: 07-23-2023 End: 07-23-2023 Office outpatient visit 25 minutes Elif Miller INSTRUMENT LENS GRINDER-CHIMNEY BUILDER Work Phone: [facility] Comment on above: Primary osteoarthrit is of right knee (Primary Dx); Chronic pain of right knee Start: 07-23-2023 End: 07-23-2023 Subsequent hospital visit by physician [facility]TERNAL [employer] Comment on above: Arrived Start: 07-16-2023 End: 07-16-2023 Office outpatient visit 15 minutes Elif Miller INSTRUMENT LENS GRINDER-CHIMNEY BUILDER Work Phone: [facility] Comment on above: Primary osteoarthrit is of right knee (Primary Dx) Start: 07-16-2023 End: 07-16-2023 Subsequent hospital visit by physician [facility] Ultrasound [facility] EXTERNAL [employer] [facility] Comment on above: Arrived Start: 07-14-2023 End: 07-14-2023 Office outpatient visit 15 minutes Bridger Edouard MD Work Phone: [facility] Comment on above: Class 3 severe obesi ty due to excess calories without serious comorbidity with body mass index (BMI) of 40.0 to 44.9 in adult (Multi) (Primary Dx); Medication management; Primary osteoarthritis of right knee; Fatty liver Start: 07-09-2023 End: 07-09-2023 Office outpatient visit 25 minutes Elif Miller INSTRUMENT LENS GRINDER-CHIMNEY BUILDER Work Phone: [facility] Comment on above: Primary osteoarthrit is of right knee (Primary Dx); Chronic pain of right knee Start: 07-09-2023 End: 07-09-2023 Subsequent hospital visit by physician [facility] Ul[facility] [employer]TERNAL [employer] Comment on above: Arrived Start: 06-27-2023 End: 06-27-2023 Office outpatient new 30 minutes Jaclyn Clay MD Work Phone: [facility] Comment on above: Gallstones Start: 06-23-2023 End: 06-23-2023 ambulatory BRIDGER EDOUARD [facility] Start: 06-23-2023 End: 06-23-2023 Subsequent hospital visit by physician [facility] Ultrasound [address] [facility] Comment on above: Gallstones Start: 06-18-2023 End: 06-18-2023 Office outpatient visit 25 minutes Bridger Edouard MD Work Phone: [facility] Comment on above: Class 3 severe obesi ty due to excess calories without serious comorbidity with body mass index (BMI) of 40.0 to 44.9 in adult (Multi) (Primary Dx); Primary osteoarthritis of right knee; Medication management; Gallstones; Screen for colon cancer Start: 06-09-2023 End: 06-09-[address] Dimitry Subramanian Work Phone: [facility] Work Phone: Start: 06-09-2023 End: 06-09-[address] Dimitry Subramanian Work Phone: [facility] Work Phone: Start: 05-30-2023 End: 05-30-[address] Dimitry Subramanian Work Phone: [facility] Work Phone: Start: 05-30-2023 End: 05-30-[address] Dimitry Subramanian Work Phone: [facility] Work Phone: Start: 04-25-2023 End: 04-25-2023 Office outpatient visit 25 minutes Alexandra Norton DO Work Phone: [facility] Comment on above: Intractable migraine without aura and without status migrainosus (Primary Dx) Start: 04-09-2023 End: 04-09-2023 Office outpatient visit 25 minutes Jaclyn Meneses MD Work Phone: [facility] Comment on above: Familial hypercholes terolemia (Primary Dx) Start: 04-07-2023 Documentation procedure Brunilda gnadhi MA [facility] Start: 03-26-2023 Orders Only Gurpreet abreu RN [facility] Comment on above: Familial hypercholes terolemia (Primary Dx) Start: 03-14-2023 End: 03-14-2023 Office outpatient visit 15 minutes Bridger Edouard MD Work Phone: [facility] Comment on above: Viral URI with cough (Primary Dx) Start: 02-21-2023 End: 02-21-2023 Office outpatient visit 15 minutes Abram Montes MD Work Phone: [facility] Comment on above: Primary osteoarthrit is of right knee (Primary Dx); Chronic pain of right knee Start: 02-12-2023 End: 02-13-2023 Emergency department patient visit Jaylin Ayala DO Work Phone: [facility] Comment on above: Acute bronchitis, un specified organism (Primary Dx) Start: 02-08-2023 End: 02-08-2023 Emergency department patient visit Jim Escobedo MD Work Phone: [facility] Comment on above: URI, acute (Primary Dx) Start: 01-17-2023 End: 01-17-2023 Office outpatient visit 25 minutes Abram Montes MD Work Phone: [facility] Comment on above: Primary osteoarthrit is of right knee (Primary Dx) Start: 11-04-2022 Chart Update Forrest Gandhi Malltabithareddi Work Phone: [employer] Work Phone: Start: 11-04-[address] Forrest Zuñiga Facility:[id number] Start: 10-30-2022 Patient encounter procedure Jd Gandhi Mallapareddi Work Phone: [facility] 300 Work Phone: Start: 10-25-2022 End: 10-25-2022 Office outpatient visit 25 minutes Alexandra Norton DO Work Phone: [facility] Comment on above: Intractable migraine without aura and without status migrainosus (Primary Dx) Start: 10-08-2022 Rx Renewal Forrest Gandhi Mallapareddi Work Phone: [employer] Work Phone: Start: 09-11-2022 Rx Renewal Forrest Gandhi Mallapareddi Work Phone: [employer] Work Phone: Start: 08-28-2022 Office outpatient ne w 20 minutes Forrest Gandhi Malltabithareddi Work Phone: [facility] [place] Work Phone: Start: 08-28-[address] Forrest Zuñiga Facility:[id number] Start: 08-27-2022 AUDIT Forrest Gandhi Mallapareddi Work Phone: [facility] [place] Work Phone: Start: 07-10-2022 AUDIT Forrest Gandhi Mallapareddi Work Phone: [facility] 300 Work Phone: Start: 06-10-2022 End: 06-10-2022 ambulatory [facility] Work Phone: Start: 06-10-2022 End: 06-10-2022 Patient encounter procedure [facility] Start: 05-27-2022 Office outpatient vi sit 15 minutes Forrest Nag S Mallapareddi Work Phone: [facility] 300 Work Phone: Start: 05-27-2022 Patient encounter procedure Ar un Nag S Mallapareddi Work Phone: [facility] 300 Work Phone: Start: 04-08-2022 Office outpatient vi sit 15 minutes Forrest Nag S Mallapareddi Work Phone: [facility] 300 Work Phone: Start: 02-28-2022 Patient encounter procedure Ar un Nag S Mallapareddi Work Phone: [facility] Work Phone: Start: 02-28-2022 ambulatory Ms. Elina Cordova Facility:[id number] Start: 02-20-2022 Office outpatient ne w 30 minutes Forrest Nag S Mallapareddi Work Phone: [facility] 300 Work Phone: Start: 02-07-2022 AUDIT Forrest Nag S Mallapareddi Work Phone: [facility] Work Phone: Start: 01-31-2022 [address] Mr. Star Carter ity:[id number] Start: 01-31-2022 Office outpatient vi sit 25 minutes Forrest Nag S Mallapareddi Work Phone: [facility] Work Phone: Start: 01-10-2022 Documentation procedure Brunilda gandhi MA [facility] Start: 01-09-2022 End: 01-09-2022 ambulatory JACLYN MENESES [facility] Start: 01-09-2022 End: 01-09-2022 Office outpatient visit 15 minutes Jaclyn Meneses MD Work Phone: [facility] Comment on above: Familial hypercholes terolemia Start: 11-01-2021 AUDIT Forrest Mayen S Mallapareddi Work Phone: [employer] Work Phone: Start: 10-26-2021 End: 10-26-2021 Office outpatient visit 25 minutes Alexandra Norton DO Work Phone: [facility] Comment on above: Intractable migraine without aura and without status migrainosus (Primary Dx); Temporomandibular joint disorder (TMJ) Start: 09-17-2021 Periodic preventive med est patient 40-64yrs Forrest Mayen S Mallapareddi Work Phone: [employer] Work Phone: Start: 07-13-2021 Chart Update Forrestjohanna Mayen S Mallapareddi Work Phone: [employer] Work Phone: Start: 07-03-2021 Office outpatient vi sit 15 minutes Forrest Faheem S Mallapareddi Work Phone: [facility] Work Phone: Start: 06-18-2021 End: 06-18-2021 Patient encounter procedure [facility] Start: 02-16-2021 End: 02-16-2021 [facility] Start: 11-15-2020 Office outpatient vi sit 15 minutes Forrest Nag S Mallapareddi [facility] Work [facility]: Start: 09-22-2020 Chart Update Forrest Nag S Mallapareddi Work Phone: [employer] Work Phone: Start: 09-15-2020 Periodic preventive med est patient 40-64yrs Forrest Zuñiga Work Phone: [facility] Work Phone: Start: 04-04-2020 Patient encounter procedure Jerson aguayo II [facility] Work Phone: Start: 02-29-2020 Patient encounter procedure Nuzhat Anderson [facility] Work Phone: Start: 02-22-2020 Patient encounter procedure Nuzhat Anderson [facility] Work Phone: Start: 01-31-2020 [facility] Work Phone: Start: 11-01-2019 Patient encounter procedure Jerson aguayo II [facility] Work Phone: Start: 10-29-2019 End: 10-29-2019 Office outpatient visit 15 minutes Alexandra Norton Work Phone: [facility] [place] Comment on above: Intractable migraine without aura and without status migrainosus (Primary Dx); Chronic migraine without aura without status migrainosus, not intractable Start: 09-14-2019 Patient encounter procedure Kingsley Matamoros lmjong [facility] Work Phone: Start: 06-22-2019 Patient encounter procedure Dimitry Subramanian [facility] Work Phone: Start: 02-18-2019 Patient encounter procedure Dimitry Subramanian [facility] Work Phone: Start: 10-29-2018 End: 10-29-2018 Office outpatient visit 25 minutes Farideh Puentes Work Phone: [facility] Comment on above: Hyperlipidemia, unsp ecified hyperlipidemia type (Primary Dx) Start: 10-23-2018 End: 10-23-2018 Office outpatient visit 15 minutes Alexandra Norton Work Phone: [facility] Comment on above: Intractable migraine without aura and without status migrainosus (Primary Dx); Chronic migraine without aura without status migrainosus, not intractable Start: 10-06-2017 End: 10-06-2017 Office outpatient visit 25 minutes Sarah Sheri Work Phone: [facility] Start: 10-07-2016 End: 10-07-2016 Office outpatient visit 15 minutes Jaclyn Aguilarn Work Phone: [facility] Comment on above: Hyperlipidemia, unsp ecified hyperlipidemia type (Primary Dx) Start: 08-07-2016 End: 08-08-2016 [facility] - scre ening done Forrest Gandhi [email or web address] Work Phone: [facility] Work Phone: Comment on above: 09/14/2019: Negative ; Encounter for gyneco logical examination (general) (routine) without abnormal findings Forrest Gandhi [employer] Work Phone: [facility] Work Phone: Comment on above: 09/14/2019: Negative ; 09/17/2021: CoTest N [id number]/14/2019: Negative; 09/27/2022: Negative 09/17/2021: CoTest Teeakqdt14/04/2020: Negative; Patient encounter procedure Forrest Gandhi Mallapareddi Work Phone: [facility] Work Phone: End: 09-15-2020 Patient encounter procedure Forrest Gandhi Mallapareddi Work Phone: [facility] Work Phone: Procedures Date Procedure Procedure Detail Performing Clinician Start: 07-23-2024 US Abdomen Golden villafuerte MD Work Phone: Start: 07-20-2024 Chemodervate facial/trigem/cerv musc migraine Jose Alvarez MD Work Phone: Start: 06-04-2024 Arthrocentesis aspir &/inj major jt/bursa w/us Golden Maradiaga MD Work Phone: Start: 06-04-2024 US Abdomen Golden villafuerte MD Work Phone: Start: 05-28-2024 Arthrocentesis aspir &/inj major jt/bursa w/us Golden Maradiaga MD Work Phone: Start: 05-28-2024 US Abdomen Golden villafuerte MD Work Phone: Start: 05-21-2024 Arthrocentesis aspir &/inj major jt/bursa w/us Golden Maradiaga MD Work Phone: Start: 05-21-2024 US Abdomen Golden villafuerte MD Work Phone: Start: 05-06-2024 US Abdomen Golden villafuerte MD Work Phone: Start: 04-16-2024 Chemodervate facial/trigem/cerv musc migraine Jose Alvarez MD Work Phone: Start: 03-25-2024 Arthrocentesis aspir &/inj major jt/bursa w/us Golden Maradiaga MD Work Phone: Start: 03-25-2024 US Abdomen Golden villafuerte MD Work Phone: Start: 01-06-2024 Chemodervate facial/trigem/cerv musc migraine Jose Alvarez MD Work Phone: Start: 12-25-2023 Arthrocentesis aspir &/inj major jt/bursa w/o us Elif Miller INSTRUMENT LENS GRINDER-CHIMNEY BUILDER Work Phone: Start: 12-25-2023 Follow-up visit Follow-up ELIF MILLER Start: 12-16-2023 Echo transthorc r-t 2d w/wo m-mode rec f-up/lmtd Bridger Edouard MD Work Phone: Start: 11-12-2023 End: 11-12-2023 Screening digital breast tomosynthesis bi Kingsley Hutchins MD Work Phone: Start: 10-29-2023 Basic metabolic pane l calcium total Pastora Ramirez MD Work Phone: Start: 10-28-2023 Us abdominal real ti me w/image limited Pastora Ramirez MD Work Phone: Start: 10-28-2023 Comprehensive metabo lic panel Pastora Ramirez MD Work Phone: Start: 10-28-2023 EXTRA URINE HENLEY TUBE A herrera Fajardo DO Work Phone: Start: 10-28-2023 Urinalysis complete W Reflex Culture panel - Urine Debby Fajardo DO Work Phone: Start: 10-28-2023 Urnls dip stick/tabl et reagent auto microscopy Debby Fajardo DO Work Phone: Start: 10-27-2023 Assay of troponin quantitative Rony Montiel MD Work Phone: Start: 10-27-2023 End: 10-27-2023 Culture bacterial quanttative colony count urine Jim Escobedo MD Work Phone: Start: 10-27-2023 Drug tst prsmv instr mnt chem analyzers pr date Rony Montiel MD Work Phone: Start: 10-27-2023 EXTRA URINE HENLEY TUBE C had Dhaval Escobedo MD Work Phone: Start: 10-27-2023 Urinalysis complete W Reflex Culture panel - Urine Rony Montiel MD Work Phone: Start: 10-27-2023 Urinalysis microscop ic panel - Urine Qualitative by Automated Jim Escobedo MD Work Phone: Start: 10-27-2023 End: 10-27-2023 Comprehensive metabolic panel Rony Montiel MD Work Phone: Start: 10-26-2023 Radiologic exam ches t single view Jim Escobedo MD Work Phone: Start: 10-26-2023 HENLEY TOP Jim kurtz MD Work Phone: Start: 10-26-2023 End: 10-26-2023 EXTRA TUBES Jim Escobedo MD Work Phone: Start: 10-26-2023 LIGHT BLUE TOP Jim merlos MD Work Phone: Start: 10-26-2023 SST TOP Jim kurtz MD Work Phone: Start: 10-26-2023 C-reactive protein Alexander Montiel MD Work Phone: Start: 10-26-2023 End: 10-26-2023 Comprehensive metabolic panel Jim Escobedo MD Work Phone: Start: 10-26-2023 Ecg routine ecg w/le ast 12 lds trcg only w/o i&r Rony Montiel MD Work Phone: Start: 10-21-2023 Comprehensive metabo lic panel Debby Fajardo DO Work Phone: Start: 10-20-2023 Us abdominal real ti me w/image limited Arabella Edwards INSTRUMENT LENS GRINDER-CHIMNEY BUILDER Work Phone: Start: 10-20-2023 Assay of ferritin Arabella Edwards INSTRUMENT LENS GRINDER-CHIMNEY BUILDER Work Phone: Start: 10-20-2023 Acute hepatitis panel A herrera Terri Harshad DO Work Phone: Start: 10-20-2023 Iaad ia hiv-1 ag w/h iv-1 & hiv-2 antbdy single Debby Fajardo DO Work Phone: Start: 10-20-2023 Echo tthrc r-t 2d w/wom-mode compl spec&colr d Justin Olivares MD Work Phone: Start: 10-20-2023 EXTRA TUBES Keena Guerra MD Work Phone: Start: 10-20-2023 LAVENDER TOP Keena Guerra MD Work Phone: Start: 10-20-2023 Comprehensive metabo lic panel Debby Fajardo DO Work Phone: Start: 10-19-2023 Fibrin dgradj produc ts d-dimer quantitative Debby Fajardo DO Work Phone: Start: 10-19-2023 Immunoglobulin light chains.free panel - Serum Debby Fajardo DO Work Phone: Start: 10-19-2023 Protein [Mass/volume ] in Serum or Plasma Anette Jorge DO Work Phone: Start: 10-19-2023 EXTRA TUBES Keena Guerra MD Work Phone: Start: 10-19-2023 SST TOP Keena Guerra MD Work Phone: Start: 10-19-2023 Comprehensive metabo lic panel Keena Guerra MD Work Phone: Start: 10-18-2023 Creatine kinase total A lla Talia INSTRUMENT LENS GRINDER-CHIMNEY BUILDER Work Phone: Start: 10-18-2023 Antinuclear antibodies lester Jennifer Talia INSTRUMENT LENS GRINDER-CHIMNEY BUILDER Work Phone: Start: 10-18-2023 EXTRA TUBES Keena Guerra MD Work Phone: Start: 10-18-2023 LAVENDER TOP Keena Guerra MD Work Phone: Start: 10-18-2023 LIGHT BLUE TOP Keena Guerra MD Work Phone: Start: 10-18-2023 C-reactive protein Eyal Ramirez MD Work Phone: Start: 10-18-2023 End: 10-18-2023 Comprehensive metabolic panel Keena Guerra MD Work Phone: Start: 10-18-2023 Urnls dip stick/tabl et rgnt auto w/o microscopy Carrie Alejo DO Work Phone: Start: 10-18-2023 Ecg routine ecg w/le ast 12 lds trcg only w/o i&r Carrie Trinh Alejo DO Work Phone: Start: 10-17-2023 End: 10-17-2023 Comprehensive metabolic panel Carrie Jayne Sapna DO Work Phone: Start: 10-17-2023 Heterophile antibodi es screen Carrie Trinh Alejo DO Work Phone: Start: 10-17-2023 Sars-cov-2 detection by dna/rna Carrie Trinh Alejo DO Work Phone: Start: 10-17-2023 Troponin I.cardiac p shanika - Serum or Plasma by High sensitivity method Carrei Trinh Alejo DO Work Phone: Start: 10-17-2023 Radiologic exam ches t single view Carrie Abadersen DO Work Phone: Start: 10-16-2023 Sars-cov-2 detection by dna/rna Purnima Piña INSTRUMENT LENS GRINDER-CHIMNEY BUILDER Work Phone: Start: 10-16-2023 End: 10-16-2023 Iaadiadoo influenza Purnima Piña INSTRUMENT LENS GRINDER-C [employer]OR RECRUITMENT MANAGER Work Phone: Start: 10-02-2023 Chemodervate facial/trigem/cerv musc migraine Jose Alvarez MD Work Phone: Start: 09-24-2023 US Abdomen Elif Miller INSTRUMENT LENS GRINDER-CHIMNEY BUILDER Work Phone: Start: 07-25-2023 Colonoscopy flx dx w /collj spec when pfrmd Leticia Jauregui DO Work Phone: Start: 07-25-2023 PULSE OXIMETRY, SPOT Da le R Juventino DO Work Phone: Start: 07-25-2023 Colonoscopy Leticia Mine e DO Work Phone: Start: 07-23-2023 Arthrocentesis aspir &/inj major jt/bursa w/us Elif Miller INSTRUMENT LENS GRINDER-CHIMNEY BUILDER Work Phone: Start: 07-23-2023 US Abdomen Elif Miller INSTRUMENT LENS GRINDER-CHIMNEY BUILDER Work Phone: Start: 07-16-2023 Arthrocentesis aspir &/inj major jt/bursa w/us Elif Miller INSTRUMENT LENS GRINDER-CHIMNEY BUILDER Work Phone: Start: 07-16-2023 US Abdomen Elif Miller INSTRUMENT LENS GRINDER-CHIMNEY BUILDER Work Phone: Start: 07-09-2023 Arthrocentesis aspir &/inj major jt/bursa w/us Elif Miller INSTRUMENT LENS GRINDER-CHIMNEY BUILDER Work Phone: Start: 07-09-2023 US Abdomen Elif Miller INSTRUMENT LENS GRINDER-CHIMNEY BUILDER Work Phone: Start: 06-23-2023 US GALLBLADDER GOLDEN L EB Start: 06-23-2023 Us abdominal real ti me w/image limited Bridger Edouard MD Work Phone: Start: 05-30-2023 Plain X-ray of shoulder Dr. Dimitry Subramanian Work Phone: Start: 05-30-2023 Radiologic examinati on of knee Dr. Dimitry Subramanian Work Phone: Start: 05-30-2023 X-ray of cervical spine Dr. Dimitry Subramanian Work Phone: Start: 05-30-2023 X-ray of lumbosacral spine Dr. Dimitry Subramanian Work Phone: Start: 05-30-2023 Plain x-ray of pelvi s and lower extremity Dr. Dimitry Subramanian Work Phone: Start: 04-07-2023 Lipid 1996 panel - S mono or Plasma Bridger Edouard MD Work Phone: Start: 02-13-2023 Ct thorax w/o contra st material Jaylin Puentes Ayala DO Work Phone: Start: 02-12-2023 Radiologic exam ches t 2 views Jaylin W Ayala DO Work Phone: Start: 02-08-2023 Influenza virus A an d B RNA [Identifier] in Unspecified specimen by AHMET with probe detection Jim Escobedo MD Work Phone: Start: 02-08-2023 Respiratory syncytia l virus RNA [Presence] in Respiratory specimen by AHMET with probe detection Jim Escobedo MD Work Phone: Start: 02-08-2023 SARS-CoV-2 (COVID-19 ) RNA [Presence] in Respiratory specimen by AHMET with probe detection Jim Escobedo MD Work Phone: Start: 01-17-2023 Arthrocentesis aspir &/inj major jt/bursa w/o us Abram Montes MD Work Phone: Start: 11-04-2022 Mammography Abram Montes MD Work Phone: Start: 09-27-2022 Microscopic observat ion [Identifier] in Cervix by Cyto stain Abram Montes MD Work Phone: Start: 01-09-2022 Ecg routine ecg w/le ast 12 lds w/i&r Jaclyn Meneses MD Work Phone: Start: 12-29-2021 Lipid 1996 panel - S mono or Plasma Abram Montes MD Work Phone: Start: 09-14-2019 Microscopic observat ion [Identifier] in Cervix by Cyto stain.thin prep Kingsley Hutchins Start: 10-29-2018 12 lead ECG Farideh mora Work Phone: Start: 04-30-2016 End: 05-06-2016 *ASPAB Aspergillus Anti Bodies [id number] Matilda Worthy CHIMNEY BUILDER Work Phone: Start: 04-30-2016 End: 04-30-2016 *BMP Matilda Worthy C DONOR RECRUITMENT MANAGER Work Phone: Start: 04-30-2016 End: 04-30-2016 aPTT in Platelet poor plasma by Coagulation assay Matilda Worthy CHIMNEY BUILDER Work Phone: Start: 04-30-2016 End: 04-30-2016 CBC W Auto Differential panel - Blood Matilda Worthy CHIMNEY BUILDER Work Phone: Start: 04-30-2016 End: 05-06-2016 IgE [Mass/volume] in Serum Matilda blair CHIMNEY BUILDER Work Phone: Start: 04-30-2016 End: 04-30-2016 INR in Platelet poor plasma by Coagulation assay Matilda Worthy CHIMNEY BUILDER Work Phone: Start: 03-27-2016 End: 05-29-2016 Echo tthrc r-t 2d w/wom-mode compl spec&colr d Valentin Cruz Work Phone: Start: 03-27-2016 End: 05-29-2016 Follow Up Appt 1 month Valentin Cruz Work Phone: Start: 03-13-2016 End: 03-22-2016 Ct thorax w/o contrast material Valentin Cruz Work Phone: Start: 03-13-2016 End: 03-22-2016 Pulmonary Function Test - complete Valentin Cruz Work Phone: Start: 03-12-2016 End: 03-22-2016 Respiratory pathogens DNA and RNA 12b panel - Unspecified specimen by AHMET with probe detection Chiquita Potts Start: 03-12-2016 End: 03-15-2016 Streptococcus pyogenes Ag [Presence] in Throat Matilda Worthy CHIMNEY BUILDER Work Phone: Start: 02-14-2016 End: 03-15-2016 [facility] Matilda Thakur DONOR RECRUITMENT MANAGER Work Phone: Start: 02-14-2016 End: 03-15-2016 Follow Up Appt 2 weeks Matilda yeh CHIMNEY BUILDER Work Phone: Start: 02-14-2016 End: 03-15-2016 Pressurized/nonpressurized inhalation treatment Matilda Worthy CHIMNEY BUILDER Work Phone: Start: 01-26-2016 End: 03-15-2016 Follow up Appt 1 week Matilda Worthy CHIMNEY BUILDER Work Phone: Start: 01-17-2016 End: 03-15-2016 Bacteria identified in Sputum by Respiratory culture Matilda Worthy CNP Work Phone: Start: 01-17-2016 End: 03-15-2016 [facility] Matilda Thakur DONOR RECRUITMENT MANAGER Work Phone: Start: 01-17-2016 End: 01-17-2016 Demo&/eval of pt utiliz aersl gen/neb/inhlr/ip Matilda Worthy CHIMNEY BUILDER Work Phone: Start: 01-17-2016 End: 03-15-2016 Pressurized/nonpressurized inhalation treatment Matilda Worthy CNP Work Phone: Start: 09-13-2015 End: 05-29-2016 Follow Up Appt 6 months Valentin Cruz Work Phone: Start: 06-29-2015 End: 03-15-2016 [facility] Matilda Thakur DONOR RECRUITMENT MANAGER Work Phone: Start: 06-29-2015 End: 03-15-2016 Follow Up Appt 1 month Matilda yeh CNP Work Phone: Start: 06-08-2015 End: 03-22-2016 Follow Up Appt 3 months Valentin Cruz Work Phone: Start: 06-08-2015 End: 03-22-2016 Pulmonary Function Test - complete Valentin Cruz Work Phone: section Lisy Elsi brush Comment on above: ; Dilation and curetta ge for termination of Lisy Staton Dilation and evacuation Forrest Faheem Gandhi [employer] Work Phone: Endometrial ablation Lisy Victorina hudson Comment on above: ; Endometrial biopsy Lisy Edith crockett Comment on above: 05/20/2017; Excision of lesion of skin A ana Faheem aGndhi [employer] Work Phone: Comment on above: 07/2021: MOHS proced ure on right side of face due to skin cancer.; Laparoscopy Lisy Shemar Comment on above: 1989; Operative procedure on foot Lisy Shemar Comment on above: 08/17/2013: Right2014: Left; Total abdominal hysterectomy Lisy Staton Comment on above: 07/02/2018; Plan of Treatment Date Care Activity Detail Author Start: 07-22-2033 Screening for malign ant neoplasm of colon [facility] Start: 04-07-2028 Lipid panel Lipid Panel [facility] Start: 12-29-2026 Lipid panel Lipid Panel [facility] Start: 06-17-2026 Diabetes mellitus screening Diabetes Screening [facility] Start: 09-27-2025 Screening for malign ant neoplasm of cervix [facility] Start: 07-01-2025 End: 07-01-2025 Patient encounter procedure 07/01/2025 8:40 AM EDT Office Visit [facility] [address] [place] [address] Dimitry Subramanian MD [address] [facility], [address] [place] [address] [facility] Start: 01-21-2025 End: 01-21-2025 Patient encounter procedure 01/21/2025 8:40 AM EST Office Visit [facility] [address] [place] [address] Alexandra Norton, DO [address] [place] [address] [facility] Start: 11-11-2024 Screening for malign ant neoplasm of breast Mammogram [facility] Start: 10-22-2024 End: 10-22-2024 Patient encounter procedure [facility] Start: 10-19-2024 End: 10-19-2024 Patient encounter procedure [facility] Start: 10-15-2024 [facility] Start: 07-24-2024 Screening for malign ant neoplasm of colon COLORECTAL CANCER SCREENING DISCUSSION [facility] Start: 07-23-2024 End: 07-23-2025 XR Knee - bilateral 4 Views XR knee 4+ views bilateral Imaging Routine Bilateral chronic knee pain Expected: 07/23/2024, Expires: 07/23/2025 [facility] Service Area Work Phone: Comment on above: Expected: 07/23/2024 , Expires: 07/23/2025 Start: 07-23-2024 End: 07-23-2024 Patient encounter procedure 07/23/2024 8:40 AM EDT Office Visit [facility] [address] [place] [address] Alexandra Norton, [address] [place] [address] [facility] Start: 07-20-2024 End: 07-20-2024 Patient encounter procedure 07/20/2024 1:30 PM EDT Office Visit [facility] [address] [place] [address] Jose Alvarez MD [address] [place] [address] [facility] Start: 07-16-2024 End: 07-16-2024 Patient encounter procedure 07/16/2024 8:00 AM EDT Office Visit [facility] [address] [place] [address] [place] Maradiaga MD [address] [place] [phone] [facility] Start: 07-01-2024 End: 07-01-2024 Patient encounter procedure 07/01/2024 8:40 AM EDT Office Visit [facility] [address] [place] [phone] Dimitry Subramanian MD [address] [facility], [address] [place] [phone] [facility] Start: 06-17-2024 End: 06-17-2024 Patient encounter procedure 06/17/2024 3:45 PM EDT Office Visit [facility] [address] [place] [address] [place] Maradiaga MD [address] [place] [address] [facility] Start: 06-17-2024 Hemoglobin A1c measurement Diabetes: Hemoglobin A1C [facility] Start: 06-04-2024 End: 06-04-2024 Patient encounter procedure 06/04/2024 8:00 AM EDT Office Visit [facility] [address] [place] [address] [place] Maradiaga MD [address] [place] [address] [facility] Start: 05-28-2024 End: 05-28-2024 Patient encounter procedure 05/28/2024 8:15 AM EDT Office Visit [facility] [address] [place] [address] [place] Maradiaga MD [address] [place] [address] [facility] Start: 05-06-2024 End: 05-06-2024 Patient encounter procedure 05/06/2024 3:45 PM EDT Office Visit [facility] [address] [place] [address] [place] Maradiaga MD [address] [place] [address] [facility] Start: 04-22-2024 End: 04-22-2025 XR Knee - right 4 Views XR knee right 4+ views Imaging Routine Primary osteoarthritis of right knee Expected: 04/22/2024 (Approximate), Expires: 04/22/2025 [facility] Service Area Work Phone: Comment on above: Expected: 04/22/2024 (Approximate), Expires: 04/22/2025 Start: 04-16-2024 End: 04-16-2024 Patient encounter procedure 04/16/2024 1:45 PM EST Office Visit [facility] [address] [place] [address] Jose Alvarez MD [address] [place] [address] [facility] Start: 03-25-2024 End: 03-25-2024 Patient encounter procedure [facility] Start: 02-02-2024 End: 02-02-2024 ambulatory 02/02/2024 8:30 AM EST Treatment [address] [address] Anette Rubio, PT [address] [place] [address] [facility] Start: 01-29-2024 End: 01-29-2024 ambulatory 01/29/2024 8:30 AM EST Treatment [address] [address] Arlen Henley, LAWN TECHNICIAN [address] [place] [address] [facility] Start: 01-27-2024 End: 01-27-2024 ambulatory 01/27/2024 8:30 AM EST Treatment [place] [id number] [place] [address] Arlen Henley, LAWN TECHNICIAN [address] [facility] [place] [phone] [facility] Start: 01-23-2024 End: 01-23-2024 Patient encounter procedure [facility] Start: 01-22-2024 End: 01-22-2024 ambulatory 01/22/2024 8:30 AM EST Treatment [facility] [address] [place] [address] Arlen Henley, LAWN TECHNICIAN [address] [place] [address] [facility] Start: 01-20-2024 End: 01-20-2024 ambulatory 01/20/2024 8:30 AM EST Treatment [facility] [address] [place] [address] Arlen Henley, LAWN TECHNICIAN [address] [place] [address] [facility] Start: 01-06-2024 End: 01-06-2024 Patient encounter procedure 01/06/2024 3:15 PM EST Office Visit [facility] [address] [place] [address] Jose Alvarez MD [address] [place] [address] [facility] Start: 01-02-2024 End: 01-02-2024 ambulatory 01/02/2024 7:45 AM EST Treatment [address] [place] [address] Eryn Chan, LAWN TECHNICIAN [address] [place] [address] [facility] Start: 01-01-2024 End: 01-01-2024 ambulatory 01/01/2024 2:45 PM EST Treatment [address] [address] Arlen Henley, LAWN TECHNICIAN [address] [place] [address] [facility] Start: 01-01-2024 End: 12-31-2024 Hepatic function 2000 panel - Serum or Plasma Hepatic Function Panel Lab Routine Fatty liver Expected: 01/01/2024 (Approximate), Expires: 12/31/2024 [facility] Work Phone: Comment on above: Expected: 01/01/2024 (Approximate), Expires: 12/31/2024 Start: 01-01-2024 End: 12-31-2024 Smooth muscle Ab [Presence] in Serum by Immunofluorescence Anti-Smooth Muscle Antibody Lab Routine Fatty liver Expected: 01/01/2024 (Approximate), Expires: 12/31/2024 [facility] Service Area Work Phone: Comment on above: Expected: 01/01/2024 (Approximate), Expires: 12/31/2024 Start: 01-01-2024 End: 01-01-2024 Patient encounter procedure 01/01/2024 8:00 AM EST Office Visit [facility] [address] [facility] [address] [place] [phone] Bridger Edouard MD [address] [facility], [address] [place] [phone] [facility] Start: 12-30-2023 End: 12-30-2023 ambulatory 12/30/2023 8:30 AM EST Treatment [facility] [address] [place] [address] Bren Bowens, LAWN TECHNICIAN [address] [facility] [place] [address] [facility] Start: 12-25-2023 End: 12-25-2023 Patient encounter procedure 12/25/2023 4:00 PM EST Office Visit [facility] [address] [place] [phone] Elif Miller, INSTRUMENT LENS GRINDER-CHIMNEY BUILDER [address] [facility], [address] [place] [address] [facility] Start: 12-25-2023 End: 12-25-2023 ambulatory 12/25/2023 9:15 AM EST Treatment [facility] [place] [address] Anette Rubio, PT [address] [facility] [place] [phone] [facility] Start: 12-23-2023 End: 12-23-2023 ambulatory 12/23/2023 9:15 AM EST Treatment [address] [address] Arlen Henley, LAWN TECHNICIAN [facility] [place] [address] [facility] Start: 12-18-2023 End: 12-18-2023 ambulatory 12/18/2023 9:15 AM EST Treatment [address] [address] Anette Rubio, PT [address] [place] [phone] [facility] Start: 12-16-2023 End: 12-16-2023 Patient encounter procedure 12/16/2023 10:00 AM EST Appointment [address] [address] [facility] Start: 12-15-2023 End: 12-15-2023 ambulatory 12/15/2023 9:15 AM EST Treatment [address] [place] [address] Arlen Henley, LAWN TECHNICIAN [address] [place] [address] [facility] Start: 12-12-2023 End: 12-12-2023 ambulatory 12/12/2023 9:15 AM EDT [facility] [place] [address] Bethany Gomez, LAWN TECHNICIAN [address] [place] [address] [facility] Start: 12-08-2023 End: 12-08-2023 ambulatory 12/08/2023 9:15 AM EDT [facility] [place] [address] Arlen Henley, LAWN TECHNICIAN [address] [place] [phone] [facility] Start: 12-05-2023 End: 12-05-2023 ambulatory 12/05/2023 9:15 AM EDT Treatment [facility] [place] [address] Arlen Henley, LAWN TECHNICIAN [address] [place] [phone] [facility] Start: 12-02-2023 End: 12-02-2023 ambulatory 12/02/2023 11:30 AM EDT [facility] [place] [address] Arlen Henley, LAWN TECHNICIAN [address] [place] [phone] [facility] Start: 12-01-2023 End: 12-01-2023 Patient encounter procedure 12/01/2023 11:00 AM EDT Office Visit [facility] [address] [phone] Bridger Edouard MD [address] [facility], [address] [place] [address] [facility] Start: 11-18-2023 End: 11-18-2023 Patient encounter procedure 11/18/2023 3:40 PM EDT Office Visit [facility] [address] [place] [address] Yasmani Waller MD [address] [place] [address] [facility] Start: 11-12-2023 End: 11-12-2023 Patient encounter procedure 11/12/2023 7:30 AM EDT Appointment [facility] [address] [place] [phone] [facility] Start: 11-10-2023 End: 11-10-2023 Patient encounter procedure 11/10/2023 1:30 PM EDT Office Visit [facility] Medical Office Building [address] [place] [address] Debby Fajardo, [address] [place] [facility] [address] [place] [address] [facility] Start: 11-06-2023 End: 11-05-2024 CBC panel - Blood by Automated count CBC Lab Routine Non-traumatic rhabdomyolysis Expected: 11/06/2023 (Approximate), Expires: 11/05/2024 [facility] Work Phone: Comment on above: Expected: 11/06/2023 (Approximate), Expires: 11/05/2024 Start: 11-06-2023 End: 11-05-2024 Comprehensive metabolic 2000 panel - Serum or Plasma Comprehensive metabolic panel Lab Routine Non-traumatic rhabdomyolysis Expected: 11/06/2023 (Approximate), Expires: 11/05/2024 [facility] Work Phone: Comment on above: Expected: 11/06/2023 (Approximate), Expires: 11/05/2024 Start: 11-06-2023 End: 11-05-2024 Creatine kinase [Enzymatic activity/volume] in Serum or Plasma CK Lab Routine Non-traumatic rhabdomyolysis Expected: 11/06/2023 (Approximate), Expires: 11/05/2024 [facility] Work Phone: Comment on above: Expected: 11/06/2023 (Approximate), Expires: 11/05/2024 Start: 11-06-2023 End: 11-05-2024 Troponin I.cardiac panel - Serum or Plasma by High sensitivity method Troponin I, High Sensitivity Lab Routine Non-traumatic rhabdomyolysis Expected: 11/06/2023 (Approximate), Expires: 11/05/2024 [facility] Service Area Work Phone: Comment on above: Expected: 11/06/2023 (Approximate), Expires: 11/05/2024 Start: 11-06-2023 End: 11-06-2023 Patient encounter procedure 11/06/2023 10:30 AM EDT Office Visit [facility] [address] [address] Bridger Edouard MD [address] [facility], [facility] [address] [place] [address] [facility] Start: 11-05-2023 Screening for malign ant neoplasm of breast Mammogram [facility] Start: 10-27-2023 End: 10-22-2024 Comprehensive metabolic 2000 panel - Serum or Plasma Comprehensive Metabolic Panel Lab Routine Non-traumatic rhabdomyolysis Expected: 10/27/2023 (Approximate), Expires: 10/22/2024 [facility] Service Area Work Phone: Comment on above: Expected: 10/27/2023 (Approximate), Expires: 10/22/2024 Start: 10-27-2023 End: 10-22-2024 Creatine kinase [Enzymatic activity/volume] in Serum or Plasma CK Lab Routine Non-traumatic rhabdomyolysis Expected: 10/27/2023 (Approximate), Expires: 10/22/2024 [facility] Work Phone: Comment on above: Expected: 10/27/2023 (Approximate), Expires: 10/22/2024 Start: 10-27-2023 End: 10-22-2024 Troponin I.cardiac panel - Serum or Plasma by High sensitivity method Troponin I, High Sensitivity Lab Routine Non-traumatic rhabdomyolysis Expected: 10/27/2023 (Approximate), Expires: 10/22/2024 [facility] Work Phone: Comment on above: Expected: 10/27/2023 (Approximate), Expires: 10/22/2024 Start: 10-24-2023 End: 10-24-2023 Patient encounter procedure 10/24/2023 8:40 AM EDT Office Visit [facility] [address] [place] [address] Alexandra Norton, DO [address] [place] [address] [facility] Start: 10-23-2023 End: 10-23-2023 Patient encounter procedure 10/23/2023 9:00 AM EDT Office Visit [facility] [address] [place] [phone] Bridger Edouard MD [address] [facility], [address] [place] [address] [facility] Start: 10-22-2023 End: 10-22-2023 Patient encounter procedure 10/22/2023 8:00 AM EDT Office Visit [facility] [address] [place] [phone] Elif Miller, INSTRUMENT LENS GRINDER-CHIMNEY BUILDER [address] [facility], [address] [place] [address] [facility] Start: 10-21-2023 End: 10-21-2023 Patient encounter procedure 10/21/2023 8:30 AM EDT Office Visit [facility] [address] [place] [address] Bridger Edouard MD [address] [facility], [address] [place] [address] [facility] Start: 10-15-2023 End: 10-14-2024 Cytology Cervical or vaginal smear or scraping study [facility] Work Phone: Comment on above: Expected: 10/15/2023 (Approximate), Expires: 10/14/2024 Start: 10-15-2023 End: 11-13-2024 DBT Breast - bilateral BI mammo bilateral screening tomosynthesis Imaging Routine Encounter for screening mammogram for malignant neoplasm of breast Expected: 10/15/2023, Expires: 11/13/2024 [facility] Service Area Work Phone: Comment on above: Expected: 10/15/2023 , Expires: 11/13/2024 Start: 10-15-2023 End: 10-15-2023 Patient encounter procedure 10/15/2023 8:30 AM EDT Office Visit [facility] Medical Office Building [facility] [address] [place] [address] Kingsley Hutchins MD [address] [facility] Medical [facility], [address] [place] [phone] [facility] Start: 10-12-2023 COVID-19 Vaccine ( season) COVID-19 Vaccine () [facility] Start: 10-12-2023 COVID-19 VACCINE () COVID-19 VACCINE ( season) [facility] Start: 10-12-2023 COVID-19 Vaccine () COVID-19 Vaccine () [facility] Start: 10-12-2023 Influenza vaccination [facility] Start: 10-01-2023 Patient encounter procedure ANNUAL, Provider: Kingsley Hutchins, Status: Pen, Time: 8:[address] [facility] [facility] [place] Work Phone: Start: 10-01-2023 End: 10-01-2023 Patient encounter procedure 10/01/2023 8:30 AM EDT Office Visit [facility] Office Building [address] [place] [address] Kingsley Hutchins MD [address] [place] [address] Medical Office, [address] [place] [phone] [facility] Start: 08-16-2023 Pneumococcal vaccination [facility] Start: 08-16-2023 Zoster vaccine hzv l karyn for subcutaneous use ZOSTER (SHINGLES) VACCINE (1 of 2) [facility] Start: 08-16-2023 Zoster Vaccines (1 of 2) Zoster Vacc raj (1 of 2) [facility] Start: 2023 End: 2023 Patient encounter procedure 2023 10:30 AM EDT Office Visit [facility] [address] [place] [address] Bridger Edouard MD [address] [facility], [address] [place] [phone] [facility] Start: 07-25-2023 End: 07-25-2023 Patient encounter procedure 07/25/2023 9:50 AM EDT Appointment [facility] [address] [place] [phone] Leticia Jauregui, DO [address] [facility], [address] [place] [phone] [facility] Start: 07-23-2023 End: 07-23-2023 Patient encounter procedure 07/23/2023 3:15 PM EDT Office Visit [facility] [address] [place] [address] Elif Miller, INSTRUMENT LENS GRINDER-CHIMNEY BUILDER [address] [facility], [address] [place] [address] [facility] Start: 07-23-2023 End: 07-23-2023 Patient encounter procedure 07/23/2023 8:45 AM EDT Office Visit [facility] [address] [place] [phone] Elif Miller, INSTRUMENT LENS GRINDER-CHIMNEY BUILDER [address] [facility], [address] [place] [address] [facility] Start: 07-17-2023 End: 07-17-2023 Patient encounter procedure 07/17/2023 10:15 AM EDT Office Visit [place] [address] [facility] [address] [place] [address] Purnima Lees MD [address] [facility], [address] [place] [address] [facility] Start: 07-16-2023 End: 07-16-2023 Patient encounter procedure 07/16/2023 8:00 AM EDT Office Visit [facility] [address] [place] [phone] Elif Miller, INSTRUMENT LENS GRINDER-CHIMNEY BUILDER [address] [facility], [address] [place] [address] [facility] Start: 07-14-2023 End: 07-14-2023 Patient encounter procedure 07/14/2023 3:30 PM EDT Office Visit [facility] [address] [place] [phone] Bridger Edouard MD [address] [facility], [address] [place] [address] [facility] Start: 07-09-2023 End: 07-09-2023 Patient encounter procedure 07/09/2023 10:30 AM EDT Office Visit [facility] [address] [place] [phone] Elif Miller, [employer]DER [address] [facility], [address] [place] [address] [facility] Start: 06-18-2023 End: 06-17-2024 CBC panel - Blood by Automated count CBC Lab Routine Medication management Expected: 06/18/2023 (Approximate), Expires: 06/17/2024 [facility] Service Area Work Phone: Comment on above: Expected: 06/18/2023 (Approximate), Expires: 06/17/2024 Start: 06-18-2023 End: 06-17-2024 Colonoscopy study Colonoscopy Screening; Average Risk Patient Endoscopy Routine Screen for colon cancer Expected: 06/18/2023, Expires: 06/17/2024 [facility] Work Phone: Comment on above: Expected: 06/18/2023 , Expires: 06/17/2024 Start: 06-18-2023 End: 06-17-2024 Comprehensive metabolic 2000 panel - Serum or Plasma Comprehensive Metabolic Panel Lab Routine Medication management Expected: 06/18/2023 (Approximate), Expires: 06/17/2024 [facility] Work Phone: Comment on above: Expected: 06/18/2023 (Approximate), Expires: 06/17/2024 Start: 06-18-2023 End: 06-17-2024 Hemoglobin A1c/Hemoglobin.total in Blood Hemoglobin A1C Lab Routine Class 3 severe obesity due to excess calories without serious comorbidity with body mass index (BMI) of 40.0 to 44.9 in adult (Multi) Expected: 06/18/2023 (Approximate), Expires: 06/17/2024 [facility] Work Phone: Comment on above: Expected: 06/18/2023 (Approximate), Expires: 06/17/2024 Start: 06-18-2023 End: 06-17-2024 TSH with reflex to Free T4 if abnormal TSH with reflex to Free T4 if abnormal Lab Routine Class 3 severe obesity due to excess calories without serious comorbidity with body mass index (BMI) of 40.0 to 44.9 in adult (Multi) Expected: 06/18/2023 (Approximate), Expires: 06/17/2024 [facility] Work Phone: Comment on above: Expected: 06/18/2023 (Approximate), Expires: 06/17/2024 Start: 06-18-2023 End: 06-17-2024 US Abdomen RUQ US gallbladder Imaging Routine Gallstones Expected: 06/18/2023, Expires: 06/17/2024 [facility] Work Phone: Comment on above: Expected: 06/18/2023 , Expires: 06/17/2024 Start: 04-25-2023 End: 04-25-2023 Patient encounter procedure 04/25/2023 8:40 AM EDT Office Visit [facility] [address] [place] [address] Alexandra Norton, [address] [place] [address] [facility] Start: 04-09-2023 End: 04-09-2023 Patient encounter procedure 04/09/2023 8:20 AM EST Office Visit [facility] [address] [facility] [place] [address] Jaclyn Meneses MD [address] [place] [address] [facility] Start: 03-19-2023 End: 03-19-2023 Patient encounter procedure 03/19/2023 7:40 AM EST Office Visit [facility] [address] [place] [phone] oFrrest Zuñiga MD [facility] [address] [facility], [address] [place] [address] [facility] Start: 03-14-2023 End: 03-14-2024 Influenza virus A and B and SARS-CoV-2 (COVID-19) identified in Respiratory specimen by AHMET with probe detection Sars-CoV-2 and Influenza A/B PCR Lab Routine Viral URI with cough Expected: 03/14/2023 (Approximate), Expires: 03/14/2024 [facility] Service Area Work Phone: Comment on above: Expected: 03/14/2023 (Approximate), Expires: 03/14/2024 Start: 02-21-2023 End: 02-21-2023 Professional / ancillary services management 02/21/2023 9:00 AM EST Ancillary Procedure [facility] [address] [place] [phone] Chronic pain of right knee [facility] Comment on above: Chronic pain of righ t knee Start: 02-21-2023 End: 02-21-2023 Patient encounter procedure 02/21/2023 8:15 AM EST Office Visit [facility] [address] [place] [phone] Abram Montes MD [address] [facility], [address] [place] [id number] [facility] Start: 02-18-2023 End: 02-18-2023 Patient encounter procedure 02/18/2023 7:40 AM EST Office Visit [facility] [address] [place] [phone] Forrest Zuñiga MD MPH [address] [facility], [address] [place] [address] [facility] Start: 02-17-2023 End: 02-18-2024 XR Knee - right 1 or 2 Views XR knee right 1-2 views Imaging Routine Chronic pain of right knee Expected: 02/17/2023, Expires: 02/18/2024 [facility] Service Area Work Phone: Comment on above: Expected: 02/17/2023 , Expires: 02/18/2024 Start: 12-30-2022 End: 01-09-2023 Lipid 1996 panel - Serum or Plasma Lipid panel Lab Routine Familial hypercholesterolemia Expected: 12/30/2022, Expires: 01/09/2023 [facility] Comment on above: Expected: 12/30/2022 , Expires: 01/09/2023 Start: 10-30-2022 FUV, Provider: Kingsley Joseph III, Status: Pen, Time: 2:00 PM FUV, Provider: Kingsley Blum III, Status: Christiano, Time: 2:[address] Work Phone: Start: 10-25-2022 End: 10-25-2022 Patient encounter procedure 10/25/2022 Office Visit Neurology Alexandra Norton, DO [address] [place] [address] [facility] Start: 10-11-2022 COVID-19 Vaccine ( season) COVID-19 Vaccine ( season) [facility] Start: 10-11-2022 Influenza vaccination A [facility] Start: 09-27-2022 Patient encounter procedure ANNUAL, Provider: Kingsley Hutchins, Status: Pen, Time: 8:30 AM [facility] [place] Work Phone: Start: 09-20-2022 Patient encounter procedure ANNUAL, Provider: Kingsley Hutchins, Status: Pen, Time: 8:30 AM [facility] Work Phone: Start: 09-17-2022 History and physical examination, annual for health maintenance Wellness Visit [facility] Start: 08-28-2022 FUV, Provider: Kingsley Joseph III, Status: Pen, Time: 4:00 PM FUV, Provider: Kingsley Blum III, Status: Pen, Time: 4:00 PM [facility] 300 Work Phone: Start: 04-03-2022 FUV, Provider: Elina Cordova, Status: Pen, Time: 8:00 AM FUV, Provider: Elina Cordova, Status: Pen, Time: 8:00 AM [facility] 300 Work Phone: Start: 02-28-2022 PTEVAADULT, Provider : Jyoti Bateman, Status: Pen, Time: 4:00 PM PTEVAADULT, Provider: Jyoti Bateman, Status: Pen, Time: 4:00 PM [facility] 300 Work Phone: Start: 02-18-2022 NPV, Provider: Elina Cordova, Status: Pen, Time: 11:00 AM NPV, Provider: Elina Cordova, Status: Pen, Time: 11:00 AM [facility] Work Phone: Start: 10-11-2021 Influenza vaccination A [facility] Start: 09-17-2021 Patient encounter procedure [facility] Start: 04-30-2021 FUV, Provider: Jerson Luciano II, Status: Pen, Time: 7:30 AM FUV, Provider: Jerson Luciano II, Status: Pen, Time: 7:30 AM [facility] [address] [employer] Work Phone: Start: 04-30-2021 Patient encounter procedure P [facility] Start: 03-18-2021 COVID-19 VACCINE (4 - Booster for Pfizer series) COVID-19 VACCINE (4 - Booster for Pfizer series) [facility] Start: 03-18-2021 COVID-19 VACCINE (4 - Pfizer series) COVID-19 VACCINE (4 - Pfizer series) [facility] Start: 10-27-2020 End: 10-27-2020 Office Visit 10/27/2020 Office Visit Neurology Alexandra Norton, DO [address] [place] [address] [phone] [facility] Start: 10-29-2019 End: 10-29-2019 Office Visit 10/29/2019 Office Visit Neurology Alexandra Norton, DO [address] [place] [address] [facility] Start: 10-12-2019 Influenza vaccination INFLUENZA VACC INE (#1) [facility] Start: 10-11-2018 Influenza vaccination INFLUENZA VACC INE (#1) [facility] Start: 10-11-2018 Influenza vaccinatio n given SEQUENTIAL INFLUENZA VACCINE (#1) [facility] Start: 10-06-2018 End: 10-06-2018 Lipid panel Lipid panel Routine Hyperlipidemia, unspecified hyperlipidemia type Expected: 10/06/2018, Expires: 10/06/2018 [facility] Start: 2018 Colonoscopy COLORECTAL CAN CER SCREENING DISCUSSION [facility] Start: 2018 Screening for malign ant neoplasm of colon COLORECTAL CANCER SCREENING DISCUSSION [facility] Start: 10-11-2017 Influenza vaccination SEQUENTI AL INFLUENZA VACCINE (#1) [facility] Start: 03-10-2017 End: 03-10-2017 Appointment [facility] Work Phone: Start: 02-10-2017 End: 08-14-2016 Ct thorax w/o contrast material CT Chest without contrast [facility] Work Phone: Start: 12-30-2016 End: 12-30-2016 Appointment Appointment [facility] Work Phone: Start: 10-11-2016 SEQUENTIAL INFLUENZA VACCINE (#1) SEQUENTIAL INFLUENZA VACCINE (#1) [facility] Work Phone: Start: 08-14-2016 End: 08-14-2016 Follow Up Appt 6 months Follow Up Appt 6 months [facility] Phone: Start: 05-07-2016 End: 05-08-2016 Cholesterol Methylcholine inhalation challenge [facility] Phone: Start: 04-30-2016 End: 05-06-2016 *ASPAB Aspergillus Anti Bodies [id number] *ASPAB Aspergillus Anti Bodies [id number] [facility] Work Phone: Start: 04-30-2016 End: 04-30-2016 *BMP *BMP [facility] Phone: Start: 04-30-2016 End: 04-30-2016 aPTT *PTT-Partial Thromboplastin Time [facility] Phone: Start: 04-30-2016 End: 04-30-2016 CBC W Auto Differential panel - Blood *CBC [facility] Phone: Start: 04-30-2016 End: 05-06-2016 Globulin *JANETTE Immunoglobulin E (IgE) [facility] Phone: Start: 04-30-2016 End: 04-30-2016 INR Coag RelTime (PPP) *PT/INR [facility] Phone: Start: 03-27-2016 End: 05-29-2016 Echo tthrc r-t 2d w/wom-mode compl spec&colr d Echo Complete with Color Flow [facility] Phone: Start: 03-27-2016 End: 05-29-2016 Follow Up Appt 1 month Follow Up Appt 1 month [facility] Phone: Start: 03-25-2016 Pneumococcal Vaccine : Ped or At-Risk (2 of 2 - PPSV23 or PCV20) Pneumococcal Vaccine: Ped or At-Risk (2 of 2 - PPSV23 or PCV20) [facility] Start: 03-25-2016 Pneumococcal Vaccine : Pediatrics (0 to 5 Years) and At-Risk Patients (6 to 64 Years) (2 of 2 - PPSV23 or PCV20) Pneumococcal Vaccine: Pediatrics (0 to 5 Years) and At-Risk Patients (6 to 64 Years) (2 of 2 - PPSV23 or PCV20) [facility] Start: 03-13-2016 End: 03-22-2016 Ct thorax w/o contrast material CT Chest without contrast [facility] Phone: Start: 03-13-2016 End: 03-22-2016 Pulmonary Function Test - complete Pulmonary Function Test - complete [facility] Phone: Start: 03-12-2016 End: 03-22-2016 Respiratory pathogens DNA and RNA 12b panel - Unspecified specimen by AHMET with probe detection *Respiratory Panel [facility] Phone: Start: 03-12-2016 End: 03-15-2016 Streptococcus pyogenes antigen presence *Strep Screen Group A Rapid Throat [facility] Phone: Start: 02-14-2016 End: 03-15-2016 [facility] Phone: Start: 02-14-2016 End: 03-15-2016 Follow Up Appt 2 weeks Follow Up Appt 2 weeks [facility] Phone: Start: 02-14-2016 End: 03-15-2016 Pressurized/nonpressuriz ed inhalation treatment Aerosol Treatment (first) [facility] Phone: Start: 01-26-2016 End: 03-15-2016 Follow up Appt 1 week Follow up Appt 1 week [facility] Phone: Start: 01-17-2016 End: 03-15-2016 Bacteria sputum culture *CUSP - Culture Sputum [facility] Phone: Start: 01-17-2016 End: 03-15-2016 [facility] Phone: Start: 01-17-2016 End: 03-15-2016 Pressurized/nonpressuriz ed inhalation treatment Aerosol Treatment (first) [facility] Work Phone: Start: 09-13-2015 End: 05-29-2016 Follow Up Appt 6 months Follow Up Appt 6 months [facility] Work Phone: Start: 06-29-2015 End: 03-15-2016 [facility] Work Phone: Start: 06-29-2015 End: 03-15-2016 Follow Up Appt 1 month Follow Up Appt 1 month [facility] Work Phone: Start: 06-08-2015 End: 03-22-2016 Follow Up Appt 3 months Follow Up Appt 3 months [facility] Work Phone: Start: 06-08-2015 End: 03-22-2016 Pulmonary Function Test - complete Pulmonary Function Test - complete [facility] Phone: Start: 2013 Fasting lipid profile LIPID SCREENIN G [facility] Start: 2013 Lipid panel LIPID SCREENING [facility] Start: 2013 Screening for malign ant neoplasm of breast [facility] Start: 2013 Screening mammography MAMMOGRA M SCREENING DISCUSSION [facility] Start: 08-16-1995 DTaP/Tdap/Td Vaccine s (1 - Tdap) DTaP/Tdap/Td Vaccines (1 - Tdap) [facility] Start: 1994 Screening for malign ant neoplasm of cervix [facility] Start: 1992 Hepatitis A Vaccines (1 of 2 - Risk 2-dose series) Hepatitis A Vaccines (1 of 2 - Risk 2-dose series) [facility] Start: 1992 Hepatitis B vaccination HEP B VACCINE (1 of 3 - 19+ 3-dose series) [facility] Start: 1992 Hepatitis B Vaccines (1 of 3 - 19+ 3-dose series) Hepatitis B Vaccines (1 of 3 - 19+ 3-dose series) [facility] Start: 1992 Third diphtheria, tetanus and acellular pertussis (DTaP) vaccination TDAP (ADULT) [facility] Start: 08-16-1991 Diabetes mellitus screening Diabetes Screening [facility] Start: 08-16-1991 Hepatitis C screening Hepatitis C Sc reening [facility] Start: 08-16-1991 Tetanus vaccination TETANUS [facility] Start: 1988 HIV screening [facility] Start: 1986 HIV screening HIV SCREENING DISCUSSI ON [facility] Start: 1985 Depression screening using PHQ-9 (Patient Health Questionnaire 9) score Depression Screening (PHQ-2/9) [facility] Start: 1978 COVID-19 Vaccine (#1) COVID-19 Vacci ne (#1) [facility] Start: 1976 History and physical examination, annual for health maintenance Wellness Visit [facility] Start: 1974 MMR Vaccines (1 of 1 - Standard series) MMR Vaccines (1 of 1 - Standard series) [facility] Start: 1973 Hepatitis B Vaccines (1 of 3 - 3-dose series) Hepatitis B Vaccines (1 of 3 - 3-dose series) [facility] Start: 1973 Hepatitis C antibody , confirmatory test HEPATITIS C VIRUS SCREENING [facility] Start: 1973 Hepatitis C screening HEPATITI S C VIRUS SCREENING [facility] Start: 1973 HIV screening HIV Screening [facility] Start: 1973 Microscopic observat ion Cyto stain Nom (Cvx) PAP SMEAR [facility] Work Phone: Start: 1973 Screening for malign ant neoplasm of cervix PAP SMEAR [facility] Start: 1973 Screening for malign ant neoplasm of colon [facility] Start: 1973 Screening mammography [facility] Start: 1973 TETANUS EVERY 10 YR TETANUS EVERY 10 YR [facility] Work Phone: Start: 1973 Tetanus vaccination [facility] Start: 1973 Yearly Adult Physical Yearly Adult P hysical [facility] End: 10-27-2023 ARUP Demographic Order ARUP Demographic Order Lab Timed Once for 1 Occurrences starting 10/27/2023 until 10/27/2023 [facility] Work Phone: Comment on above: Once for 1 Occurrenc es starting 10/27/2023 until 10/27/2023 Bacteria identified in Blood by Culture Blood Culture Microbiology Routine 10/27/2023 4:54 AM EDT [facility] Work Phone: End: 10-28-2023 Bacteria identified in Urine by Culture [facility] Work Phone: Comment on above: Once (Lab) for 1 Occ urrences starting 10/28/2023 until 10/28/2023 End: 07-25-2023 Choriogonadotropin ( test) [Presence] in Urine POCT , urine manually resulted Point of Care Testing Routine Once (Lab) for 1 Occurrences starting 07/25/2023 until 07/25/2023 [facility] Work Phone: Comment on above: Once (Lab) for 1 Occ urrences starting 07/25/2023 until 07/25/2023 DRUG SCREEN,URINE DRUG SCREEN,UR INE Lab Routine Medication management 07/14/2023 4:04 PM EDT [facility] Service Area Work Phone: End: 02-13-2023 ECG 12 Lead ECG 12 Lead ECG STAT Once for 1 Occurrences starting 02/13/2023 until 02/13/2023 [facility] Service Area Work Phone: Comment on above: Once for 1 Occurrenc es starting 02/13/2023 until 02/13/2023 ECG 12 Lead ECG 12 Lead ECG STAT 02/13/2023 12:29 AM EST [facility] Work Phone: ECG 12 Lead ECG 12 Lead ECG STAT 10/26/2023 10:45 PM EDT [facility] Work Phone: Electrocardiogram, 12-lead PRN ACS symptoms [facility] Work Phone: Comment on above: As needed until disc ontinued starting 10/18/2023 Electrocardiogram, 12-lead PRN ACS symptoms Electrocardiogram, 12-lead PRN ACS symptoms ECG Routine As needed until discontinued starting 10/18/2023 [facility] Work Phone: Comment on above: As needed until disc ontinued starting 10/18/2023 Electrocardiogram, 12-lead PRN ACS symptoms Electrocardiogram, 12-lead PRN ACS symptoms ECG Routine As needed until discontinued starting 10/27/2023 [facility] Work Phone: Comment on above: As needed until disc ontinued starting 10/27/2023 End: 10-27-2023 Extended Myositis Panel [facility] Work Phone: Comment on above: Once (Lab) for 1 Occ urrences starting 10/27/2023 until 10/27/2023 End: 10-17-2023 Extra Urine Henley Tube Extra Urine Henley Tube Lab Timed Once for 1 Occurrences starting 10/17/2023 until 10/17/2023 [facility] Work Phone: Comment on above: Once for 1 Occurrenc es starting 10/17/2023 until 10/17/2023 End: 07-25-2023 Glucose [Mass/volume] in Serum or Plasma Glucose Lab Routine Once (Lab) for 1 Occurrences starting 07/25/2023 until 07/25/2023 [facility] Work Phone: Comment on above: Once (Lab) for 1 Occ urrences starting 07/25/2023 until 07/25/2023 End: 10-27-2023 Heavy Metals, Blood Heavy Metals, Blood Lab Routine Once (Lab) for 1 Occurrences starting 10/27/2023 until 10/27/2023 [facility] Work Phone: Comment on above: Once (Lab) for 1 Occ urrences starting 10/27/2023 until 10/27/2023 End: 10-27-2023 Heavy Metals, Blood Heavy Metals, Blood Lab Timed Once for 1 Occurrences starting 10/27/2023 until 10/27/2023 [facility] Work Phone: Comment on above: Once for 1 Occurrenc es starting 10/27/2023 until 10/27/2023 End: 03-26-2024 Lipid 1996 panel - Serum or Plasma Lipid panel Lab Routine Familial hypercholesterolemia 1 Occurrences starting 03/26/2023 until 03/26/2024 [facility] Work Phone: Comment on above: 1 Occurrences starti ng 03/26/2023 until 03/26/2024 End: 10-07-2017 Lipid panel Lipid Panel Routine Hyperlipidemia, unspecified hyperlipidemia type 1 Occurrences starting 10/07/2016 until 10/07/2017 [facility] Work Phone: Comment on above: 1 Occurrences starti ng 10/07/2016 until 10/07/2017 End: 10-20-2023 Mitochondria Ab [Presence] in Serum by Immunofluorescence [facility] Work Phone: Comment on above: Once (Lab) for 1 Occ urrences starting 10/20/2023 until 10/20/2023 End: 07-25-2023 Moderate Sedation Moderate Sedation Procedures Routine Once for 1 Occurrences starting 07/25/2023 until 07/25/2023 [facility] Service Area Work Phone: Comment on above: Once for 1 Occurrenc es starting 07/25/2023 until 07/25/2023 End: 10-20-2023 Nuclear Ab [Presence] in Serum by Hep2 substrate [facility] Service Area Work Phone: Comment on above: Once (Lab) for 1 Occ urrences starting 10/20/2023 until 10/20/2023 Patient Education [facility]: End: 07-25-2023 Pulse oximetry, continuous Pulse oximetry, continuous Respiratory Care Routine Continuous until discontinued starting 07/25/2023 [facility] Work Phone: Comment on above: Continuous until dis continued starting 07/25/2023 End: 10-19-2023 Serum Protein Electrophoresis + Immunofixation [facility] Work Phone: Comment on above: Once (Lab) for 1 Occ urrences starting 10/19/2023 until 10/19/2023 End: 10-19-2023 Serum Protein Electrophoresis + Immunofixation [facility] Work Phone: Comment on above: Once (Lab) for 1 Occ urrences starting 10/19/2023 until 10/19/2023, 1 completed End: 10-20-2023 Smooth muscle Ab [Presence] in Serum by Immunofluorescence [facility] Work Phone: Comment on above: Once (Lab) for 1 Occ urrences starting 10/20/2023 until 10/20/2023 End: 01-09-2023 Thyrotropin [Units/volume] in Serum or Plasma TSH Lab Routine Familial hypercholesterolemia 1 Occurrences starting 01/09/2022 until 01/09/2023 [facility] Work Phone: Comment on above: 1 Occurrences starti ng 01/09/2022 until 01/09/2023 End: 10-17-2023 Urinalysis complete W Reflex Culture panel - Urine [facility] Service Area Work Phone: Comment on above: STAT (Lab) for 1 Occ urrences starting 10/17/2023 until 10/17/2023 US Abdomen Point of Care Ul trasound Imaging Routine Primary osteoarthritis of right knee Ordered: 05/06/2024 [facility] Work Phone: Comment on above: Ordered: 05/06/2024 End: 01-09-2023 Vitamin D, 1,25-dihydroxy measurement Vitamin D 1,25 Dihydroxy Lab Routine Familial hypercholesterolemia 1 Occurrences starting 01/09/2022 until 01/09/2023 [facility] Comment on above: 1 Occurrences starti ng 01/09/2022 until 01/09/2023 XR Knee - right 1 or 2 Views XR knee right 1-2 views Imaging Routine Chronic pain of right knee 02/21/2023 8:14 AM EST [facility] Work Phone: End: 05-06-2024 XR Knee - right 4 Views [facility] Work Phone: Comment on above: Once for 1 Occurrenc es starting 05/06/2024 until 05/06/2024 NEGATED: Highlighted row has been ruled out! Planned Goals not documented [address] Work Phone: Immunizations Immunization Date Immunization Notes Care Provider Eldon peck 12-11-2023 influenza, injectabl e, madin argelia canine kidney, preservative free Bridger Eduoard MD Work Phone: [facility] Work Phone: 10-27-2023 pneumococcal conjuga te 20-valent (PREVNAR 20) vaccine Jim Escobedo MD Work Phone: [facility] Work Phone: 10-27-2023 flu vaccine trivalen t (PF) (Fluarix/Fluzone/Flula angel) 6 months or greater injection Jim Escobedo MD Work Phone: [facility] Work Phone: 01-21-2021 Pfizer-BioNTech COVID-19 Vacc 30 MCG/0.3ML Intramuscular Suspension Forrest [facility] [email or web address] Work Phone: [facility] Work Phone: Comment on above: Series: 06-23-2020 Pfizer-BioNTech COVID-19 Vacc 30 MCG/0.3ML Intramuscular Suspension [facility] [email or web address] Work Phone: [address] Work Phone: 05-31-2020 Pfizer-BioNTech COVID-19 Vacc 30 MCG/0.3ML Intramuscular Suspension [facility] [email or web address] Work Phone: [address] Work Phone: 01-29-2016 pneumococcal conjuga te vaccine, 13 valent; Translations: [PCV 13, pneumococcal conjugate vaccine, 13 valent] Rabia Lai LPN Pulmonary Medicine [facility] Work Phone: Comment on above: Series: 01-29-2016 [id number] Rabia Lai LPN Pulmo nary Medicine [facility] Work Phone: 06-15-2013 measles, mumps and rubella virus vaccine [facility] [employer] Work Phone: [address] Work Phone: Payers Date Payer Category Payer Self-pay [id number] 2021 [employer] ANTHEM HMP [id number] 2021 Managed Care (unspecified) ANTHEM HMO PPO POS [id number] 2021 Unknown 2021 Unknown [id number] 2016 Unknown ANTHEM ANTHEM HM O PPO POS [id number] 2016-Present [id number] 1.2.840.281015.1.13.172.2. 7.3.253079.315 2006 Unknown [id number] 1.2.840.746241.1.13.385.2. 7.3.708103.315 1973 Unknown [id number] 2.840.1.264650.3.579.2. 903 1973 Unknown [id number] 2.16840.1.257445.3.579.2. 1068 1973 Unknown [id number] 2.16840.1.836051.3.579.2. 1068 1973 Unknown [id number] 2.840.1.148509.3.579.2. 1068 1973 Unknown [id number] 2.16840.1.908191.3.579.2. 1068 1973 Unknown [id number] 2.840.1.934961.3.579.2. 1242 1973 Unknown [id number] 2.840.1.426655.3.579.2. 1242 1973 Unknown [id number] 2.1.236513.3.579.2. 1242 1973 Unknown [id number] 2.840.1.936005.3.579.2. 1242 1973 Unknown [id number] 2.0.1.149388.3.579.2. 1242 1973 Unknown [id number] 2.840.1.883582.3.579.2. 1242 1973 Unknown [id number] 20.1.289650.3.579.2. 1242 1973 Unknown [id number] 2.840.1.152760.3.579.2. 1242 1973 Unknown [id number] 2.840.1.160345.3.579.2. 1242 1973 Unknown [id number] 2.840.1.697846.3.579.2. 1242 1973 Unknown [id number] 2.840.1.264198.3.579.2. 1242 1973 Unknown [id number] 2.16.840.1.819838.3.579.2. 1242 1973 Unknown [id number] 2.16.840.1.179901.3.579.2. 1242 1973 Unknown [id number] 2.16.840.1.660491.3.579.2. 1242 1973 Unknown [id number] 2.16.840.1.224550.3.579.2. 1242 1973 Unknown [id number] 2.16.840.1.488964.3.579.2. 1242 1973 Unknown [id number] 2.16840.1.584687.3.579.2. 1242 1973 Unknown [id number] 2.16840.1.229584.3.579.2. 1242 1973 Unknown [id number] 2.16840.1.254873.3.579.2. 1242 1973 Unknown [id number] 2.16840.1.249142.3.579.2. 1242 1973 Unknown [id number] 2.16840.1.495481.3.579.2. 1242 1973 Unknown [id number] 2.16840.1.562739.3.579.2. 1242 1973 Unknown [id number] 2.16840.1.291007.3.579.2. 1242 1973 Unknown [id number] 2.16840.1.815245.3.579.2. 1242 1973 Unknown [id number] 2.16.840.1.905232.3.579.2. 1973 Unknown [id number] 2.16840.1.167941.3.579.2. 3 1973 Unknown [id number] 2.16.840.1.565001.3.579.2. 983 1973 Unknown [id number] 2.16.840.1.841979.3.579.2. 1973 Unknown [id number] 2.16840.1.363214.3.579.2. 1244 1973 Unknown [id number] 2.16840.1.772736.3.579.2. 1244 1973 Unknown [id number] 2.840.1.697688.3.579.2. 1244 1973 Unknown [id number] 2.840.1.596908.3.579.2. 1244 1973 Unknown [id number] 2.840.1.702553.3.579.2. 1244 1973 Unknown [id number] 2840.1.930928.3.579.2. 1244 1973 Unknown [id number] 2.840.1.507368.3.579.2. 1244 1973 Unknown [id number] 2.840.1.428810.3.579.2. 1244 1973 Unknown [id number] 2.840.1.480672.3.579.2. 1244 1973 Unknown [id number] 840.1.526588.3.579.2. 1244 1973 Unknown [id number] .840.1.985842.3.579.2. 1244 1973 Unknown [id number] 840.1.729499.3.579.2. 1244 1973 Unknown [id number] 2.840.1.148707.3.579.2. 1244 1973 Unknown [id number] 2.840.1.377797.3.579.2. 1973 Unknown [id number] 2840.1.213498.3.579.2. 983 1973 Unknown [id number] 2.840.1.536122.3.579.2. 983 1973 Unknown [id number] 2.840.1.843991.3.579.2. 1243 1973 Unknown [id number] 840.1.080463.3.579.2. 1243 1973 Unknown [id number] .840.1.703805.3.579.2. 1243 1973 Unknown [id number] 03.28.830.1.913647.3.579.2. 1243 1973 Unknown [id number] 03.28.830.1.193268.3.579.2. 1243 1973 Unknown [id number] .1.639761.3.579.2. 1243 1973 Unknown [id number] 03.28.830.1.556100.3.579.2. 1243 1973 Unknown [id number] .1.556346.3.579.2. 1243 1973 Unknown [id number] 03.28.830.1.760250.3.579.2. 1243 1973 Unknown [id number] .1.105947.3.579.2. 1243 1973 Unknown [id number] 840.1.036110.3.579.2. 1243 1973 Unknown [id number] 840.1.999579.3.579.2. 1243 1973 Unknown [id number] 840.1.670071.3.579.2. 1243 1973 Unknown [id number] 840.1.675667.3.579.2. 1243 1973 Unknown [id number] 03.28.830.1.038239.3.579.2. 1244 1973 Unknown [id number] 2.16.840.1.221694.3.579.2. 1244 1973 Unknown [id number] 2.16.840.1.983721.3.579.2. 1244 1973 Unknown [id number] 2.16.840.1.261109.3.579.2. 1244 Unknown [id number] Unknown [id number] Unknown [facility] [id number] Unknown [id number] 2.16.840.1.660610.3.579.2. 462 Unknown [id number] 2.16.840.1.556108.3.579.2. 462 Unknown [id number] 2.16.840.1.595327.3.579.2. 462 Social History Date Type Detail Facility Start: 10-06-2017 End: 04-25-2023 Tobacco smoking status [facility] Never smoker [facility] Start: 1975 Sex Assigned At Not on file [employer] Work Phone: Start: 10-29-2018 End: 04-09-2023 Alcohol intake Current drinker of alcohol (finding) [facility] Start: 10-07-2016 End: 11-01-2016 Alcohol Comment rarely [facility] Start: 10-29-2019 End: 10-15-2023 Tobacco use and exposure Never used [facility] Start: 11-01-2016 Alcohol Comment rarely [facility] Start: 12-30-2021 End: 07-01-2024 Exposure to SARS-CoV-2 (event) Not sure [facility] Start: 10-23-2018 End: 10-28-2023 Alcohol intake Yes [facility] Start: 10-26-2021 End: 10-28-2023 Former smoker Former smoker [facility] Start: 11-29-2020 End: 11-26-2022 Tobacco smoking consumption unknown [facility] Start: 1975 Sex Assigned At Female [facility] Start: 09-12-2016 Gender identity Identifies as female gender (finding) [facility] Start: 10-28-2021 Sexual orientation Heterosexual (fin анна) [facility] Start: 01-17-2023 End: 10-15-2023 Tobacco smoking status NHIS Ex-smoker [facility] Work Phone: History of tobacco use Current smoker [facility] Work Phone: History of tobacco use Cigarette Smoker [facility] Work Phone: Start: 02-08-2023 End: 07-23-2024 Alcohol intake Ex-drinker (finding) [facility] Work Phone: How often to you hav e a drink containing alcohol? Never [facility] How many standard drinks containing alcohol do you have on a typical day? Patient does not drink [facility] Work Phone: In the past 12 months, was there a time when you were not able to pay the mortgage or rent on time? No [facility] Work Phone: How often to you hav e a drink containing alcohol? Monthly or less [facility] How many standard drinks containing alcohol do you have on a typical day? 1 or 2 [facility] Work Phone: How often do you hav e 6 or more drinks on 1 occasion? Less than monthly [facility] Work Phone: How hard is it for you to pay for the very basics like food, housing, medical care, and heating Not very hard [facility] Work Phone: Start: 02-16-2016 Sex Female (finding) [facility] NEGATED: Highlighted row - - [facility] Work Phone: Functional Status Date Assessment Result Facility 09-17-2021 PHQ-9 [id number] Moder ate (10-14) [facility] [address] Work Phone: NEGATED: Highlighted row Functional performance Functional status health issues are not documented Disease [facility] Work Phone: Mental Status Date Assessment Result Facility NEGATED: Highlighted row Cognitive function [Interpretation] Cognitive status health issues are not documented Disease [facility] Work Phone: Clinical Notes 11-01-2020 to 07-23-2024 Assessment & Plan Note - Golden Maradiaga MD - 07/23/2024 3:07 PM EDTAssessment & Plan Note - Golden Maradiaga MD - 07/23/2024 3:07 PM EDShari Maradiaga MD - 07/23/2024 10:45 AM EDTAttachments Note Date & Type Note Facility 07-23-2024 Evaluation + Plan note Associated Problem(s): Primary osteoarthritis of right knee Assessment: Bilateral knee arthritis right greater than left. Plan: Follow-up in 3 to 4 months for reevaluation. Will need new x-rays. Continue the Voltaren gel [facility] Work Phone: 07-23-2024 Miscellaneous Notes Associated Problem(s): Primary osteoarthritis of right knee Assessment: Bilateral knee arthritis right greater than left. Plan: Follow-up in 3 to 4 months for reevaluation. Will need new x-rays. Continue the Voltaren gel documented in this encounter [facility] Work Phone: 07-23-2024 History of Present illness Narrative Assessment/Plan Encounter Diagnoses: Primary osteoarthritis of right knee Bilateral chronic knee pain Primary osteoarthritis of right knee Assessment: Bilateral knee arthritis right greater than left. Plan: Follow-up in 3 to 4 months for reevaluation. Will need new x-rays. Continue the Voltaren gel Subjective Patient ID: Suraj Hawk is a 48 y.o. female. Chief Complaint: Follow-up of the Right Knee Last Surgery: No surgery found Last Surgery Date: No surgery found HPI 48-year-old female who has morbid obesity and bilateral knee arthritis the right being greater than the left. She got good benefit from Euflexxa injections she states about 50% improved. She has a history of rhabdomyolysis and generalized weakness which affect the biomechanics of her joints and complicate orthopedic care and medications. OBJECTIVE: ORTHO EXAM Right knee: Skin healthy and intact No gross swelling or ecchymosis Alignment: Varus Effusion: Minimal ROM: 0 degrees Extension 90 degrees Flexion Mild crepitance with range of motion No pain with internal rotation of the hip Tenderness to palpation: Tender globally especially along the medial joint line 20 degrees laxity to valgus stress No laxity to varus stress Negative Zachariah s test Negative posterior drawer test Mild pain with Dana s test Neurovascular exam normal distally 2+ DP pulse and good cap refill Left knee Skin healthy and intact No gross swelling or ecchymosis Alignment: Varus Effusion: Minimal ROM: 0 degrees Extension 90 degrees Flexion Mild crepitance with range of motion No pain with internal rotation of the hip Tenderness to palpation: Tender globally especially along the medial joint line 15 degrees laxity to valgus stress No laxity to varus stress Negative Zachariah s test Negative posterior drawer test Mild pain with Dana s test Neurovascular exam normal distally 2+ DP pulse and good cap refill IMAGE RESULTS: Point of Care Ultrasound These images are not reportable by radiology and will not be interpreted by Radiologists. ULTRASOUND DIAGNOSTIC ULTRASOUND REPORT FINAL: Right KNEE Lumite Injector: Golden Maradiaga MD Indication: Knee Pain Procedure: Ultrasound, extremity, nonvascular, real-time, COMPLETE, anatomic specific Technique: B-Mode Ultrasound Examination performed using 6- 9 MHz linear transducer with [employer] STUDY TYPE: 1. ULTRASOUND EXTREMITY 2. REAL TIME WITH IMAGE DOCUMENTATION 3. NON-VASCULAR 4. COMPLETE STUDY, INCLUDING BUT NOT LIMITED TO MUSCLE, TENDONS, LIGAMENTS, SOFT TISSUES, ADIPOSE TISSUE AND SUBCUTANEOUS TISSUE. Site: KNEE Live ultrasound was performed with of patient's KNEE and PERMANENTLY documented. I personally performed the ultrasound and reviewed the findings. These show: Tami-articular evaluation: An intact Quadriceps Tendon with the Quadriceps Muscle fibers showing normal striations Quadriceps Tendon demonstrating normal fibrillar pattern. . The Patellar Tendon demonstrates normal fibrillar pattern and is intact. No significant soft tissue fluid collection/abscess appreciated. Joint Evaluation: The lateral joint line shows an intact LCL. Medial joint line exam shows an intact MCL. The patellar tendon was within normal limits. Minimal joint effusion noted. DIAGNOSTIC ULTRASOUND REPORT FINAL: Left KNEE Lumite Injector: Golden Maradiaga MD Indication: Knee Pain Procedure: Ultrasound, extremity, nonvascular, real-time, COMPLETE, anatomic specific Technique: B-Mode Ultrasound Examination performed using 6- 9 MHz linear transducer with [employer] STUDY TYPE: 1. ULTRASOUND EXTREMITY 2. REAL TIME WITH IMAGE DOCUMENTATION 3. NON-VASCULAR 4. COMPLETE STUDY, INCLUDING BUT NOT LIMITED TO MUSCLE, TENDONS, LIGAMENTS, SOFT TISSUES, ADIPOSE TISSUE AND SUBCUTANEOUS TISSUE. Site: KNEE Live ultrasound was performed with of patient's KNEE and PERMANENTLY documented. I personally performed the ultrasound and reviewed the findings. These show: Tami-articular evaluation: An intact Quadriceps Tendon with the Quadriceps Muscle fibers showing normal striations Quadriceps Tendon demonstrating normal fibrillar pattern. . The Patellar Tendon demonstrates normal fibrillar pattern and is intact. No significant soft tissue fluid collection/abscess appreciated. Joint Evaluation: The lateral joint line shows an intact LCL. Medial joint line exam shows an intact MCL. The patellar tendon was within normal limits. Scant joint effusion noted. The patient tolerated the procedure well. The patient tolerated the procedure well. Procedures Orders Placed This Encounter Point of Care Ultrasound XR knee 4+ views bilateral documented in this encounter [facility] Work Phone: 07-23-2024 History of Present illness Narrative Suraj Hawk 48 y.o. female CHIEF COMPLAINT: Headache HISTORY OF PRESENT ILLNESS: Suraj follows on 07/23/2024. She is a 48-year-old with chronic migraine, hormonally related initially though improved after she went off OC post hysterectomy. Topamax was tapered and when her headaches returned Qulipta was utilized She was recently hospitalized with rhabdomyolysis (CK 4423) believed possibly secondary to phentermine or interaction with other medications (migraine medications). Her headaches have returned but utilizing long acting mAb is not recommended; she initially improved with Nurtec 75 mg every other day + Botox but her headaches are now frequent. MIDAS 27 Age at headache onset:chronic Family history of headache:son Duration/Location of headache:days Frequency of headache:one a month./1 or 2 weeks/1-2 per month but if occur maybe severe and does not have stat dose/not a lot /2 a week Aura: none Miss work/activities:++ Triggers:son hit a deer Nausea/Vomiting/Photo/Sono:++ Neuro symptoms associated:dizzy OTC medication frequency:naproxen for knee Prescribed preventive meds: off Topamax- when review notes see that she was tapered in 2019 at was doing well and high-dose are not achieved because she was on OC Qulipta not helpful initially- tried and helps, Zoloft Nurtec every other day +Botox x 3 Prescribed abortive meds: eletriptan/stat dose has to stay home, Nurtec has not been able to get while on Qulipta now using Nurtec every other day and doing wellTosymra Evaluation(scans): Brain MRI 2018 normal Laboratory investigations: 10/21/2023 AST/ALT 173/225 GFR > 90 CO2 28 CK 4423 Previous AST/ALT 06/18/2023 23/23 12/04/2023 CK 90 AST/ALT 56/60 REVIEW OF SYSTEMS: Neurology 01/06/2024 2nd Botox session proceded with caution with patient understanding Botox could exacerbate any underlying myopathic disorder. PCP 01/01/2024 having more energy pain mostly gone. Troponin back to normal LFTs near normal with normal CK. 11/10/2023 nephrology worried slightly about capillary leak syndrome. Rhabdomyolysis may have been from meds hard to say 100%. Myositis workup negative. 10/29/2023 discharge summary 2nd admission for rhabdomyolysis previous discharge CK to 911, admission for slight elevation at 3:07 a.m. 7 AST/ALT 96/98 given IV fluids Botox 10/02/2023 10/17/2023 ED myalgias generalized fatigue negative COVID initial troponin 489 chest x-ray consolidation/pneumonia-LFTs initially elevated possible interaction between migraine medication, phentermine and/or psoriasis medication. OARRS: Phentermine 37.5 Sleep:hot flashes black cohash/hot flashes similar Caffeine: Head trauma: Water consumption:60-80 Missed meals: Exercise:right knee pain-does not wish knee replacement Depression: Zoloft deployed in past/back home Two children Not back at work yet ALLERGIES: Allergies Allergen Reactions Nickel Rash Phentermine Qulipta [Atogepant] Sulfa Antibiotics PAST MEDICAL HISTORY: Past Medical History: Diagnosis Date Migraine SOCIAL HISTORY: Social History Socioeconomic History Marital status: Tobacco Use Smoking status: Never Smokeless tobacco: Never Vaping Use Vaping status: Never Used Substance and Sexual Activity Alcohol use: Not Currently Comment: rarely Drug use: No Sexual activity: Yes Partners: Male control/protection: Hysterectomy Comment: I'm so just my . Other Topics Concern Occupational Exposure No Hobby Hazards No Social Drivers of Health Financial Resource Strain: Low Risk (10/28/2023) Received from [facility] Overall Financial Resource Strain (CARDIA) Difficulty of Paying Living Expenses: Not hard at all Transportation Needs: No Transportation Needs (10/28/2023) Received from [facility] PRAPARE - Transportation Lack of Transportation (Medical): No Lack of Transportation (Non-Medical): No Housing Stability: Low Risk (10/28/2023) Received from [facility] Housing Stability Vital Sign Unable to Pay for Housing in the Last Year: No Number of Times Moved in the Last Year: 1 Homeless in the Last Year: No 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 MEDICATIONS PRIOR TO VISIT: Current Outpatient Medications: eletriptan (Relpax) 40 MG tablet, 1 po prn migraine may repeat ONCE in 2 hours if necessary, Disp: 9 tablet, Rfl: 6 Ondansetron 4 MG tablet, 1 po q 6 hours prn nausea ( migraine), Disp: 10 tablet, Rfl: 2 Rimegepant (Nurtec) 75 MG Tab Dispersible, 1 po every other day for migraine prevention, Disp: 16 tablet, Rfl: 6 Albuterol Sulfate (PROAIR HFA IN), Inhale as needed. (Patient not taking: Reported on 10/27/2020), Disp: , Rfl: Botulinum Toxin Type A 200 units Recon Soln, For prevention of chronic migraine, Disp: 1 Each, Rfl: 0 Budesonide-Formoterol Fumarate (SYMBICORT IN), take by inhalation. (Patient not taking: Reported on 10/27/2020), Disp: , Rfl: Coenzyme Q10 (COQ10 PO), Take by mouth., Disp: , Rfl: Folic acid 1 MG tablet, Take 1 tablet by mouth 2 times daily., Disp: , Rfl: Levonorgestrel-Ethinyl Estrad (LILLOW PO), Take by mouth. (Patient not taking: Reported on 10/27/2020), Disp: , Rfl: Loratadine (CLARITIN PO), take by mouth., Disp: , Rfl: Methotrexate, Anti-Rheumatic, (methotrexate, M-1806,) 2.5 mg tablet, Take 1 tablet by mouth once a week., Disp: , Rfl: Montelukast Sodium (SINGULAIR PO), take by mouth., Disp: , Rfl: naproxen 500 MG tablet, Take 1 tablet by mouth 2 times daily with meals., Disp: , Rfl: Niacin, Antihyperlipidemic, (NIASPAN PO), take by mouth. (Patient not taking: Reported on 10/27/2020), Disp: , Rfl: Sertraline HCl (ZOLOFT PO), Take 100 mg by mouth every evening. , Disp: , Rfl: SUMAtriptan Succinate 6 MG/0.5ML Solution Auto-injector, 1 sub q dose prn migraine . Could repeat in 2 hours . Not more than 1 a day, Disp: 2 mL, Rfl: 6 tiZANidine 4 MG tablet, 1/2 or 1 at bed as need for insomnia /muscle spasm -May be sedating, Disp: 20 tablet, Rfl: 0 Topiramate ER 50 MG Capsule ER 24 Hour Sprinkle, 1 or 2 at bed, Disp: 60 capsule, Rfl: 6 PHYSICAL EXAM: Blood pressure 130/70, pulse 100, height 1.549 m (5' 1), weight 108.1 kg (238 lb 6.4 oz), SpO2 97%. Body mass index is 45.05 kg/m . 14 # weight gain Speech fluent Heart regular rate and rhythm No carotid bruits Gait stable ASSESSMENT/IMPRESSION: Problem List Items Addressed This Visit Cardiovascular Intractable migraine without aura and without status migrainosus - Primary PLAN: Topiramate ER 100 mg Nurtec 75 mg every other day Eletriptan 40 mg/stat dose as need Tizanidine 2-4 mg at HS for sleep hygiene and muscle spasm Continue Botox Not sure if Qulipta was helpful in past but could consider Diet and low carbs discussed Follow-up 6 months Alexandra Norton DO documented in this encounter [facility] 07-23-2024 Instructions Alexandra Norton DO - 07/23/2024 8:40 AM EDT Topiramte ER 50 mg every other night x 1 week then 1 at bed x 2 weeks then can add second pil at night and stay at 2 at night Drink a lot of water One carb a day Nurtec 75 mg every other day Eletriptan 40 mg as need and if not better in one hour OR wake with JORDAN- sumatriptan shot Tizanidine 4 mg 1/2 or 1 at bed for muscle spasm and sleep- call if works Follow up 6 months documented in this encounter [facility] 07-20-2024 History of Present illness Narrative Botox (200) unit vials [facility]# 6943-2444-72 Lot# [id number] Exp date: 07/06 Saline: ( 4)ML USE ( 175 ) WASTE ( 35 ) documented in this encounter [facility] 07-20-2024 Procedure note Associated Ord er(s): PREEMPT Chemodenervation: Migraine Post-Procedure Diagnose(s): Intractable migraine without aura and without status migrainosus Botulinum Toxin Injections for Chronic Migraine Interim History Suraj Hawk presents for her 4th session of Botox for chronic migraines. Headaches tend to be over the forehead and right side of the scalp. PREEMPT Chemodenervation: Migraine Date/Time: 07/20/2024 1:30 PM Performed by: Jose Alvarez MD Authorized by: Jose Alvarez MD Comments: Description of Procedure: After discussing the risks and benefits of botulinum toxin, the patient provided informed consent. The patient was placed in the seated position on the examination table. The skin was prepped using alcohol pads. A 30-gauge, 0.5 inch-long needle was used with four 1 cc syringes. Concentration: Two 100 unit vials of botox were diluted into 4 ml of normal saline for a concentration of 50 units/1ml. A total of 175 units of botulinum toxin were used and injected as below (divided equally between left and right unless otherwise indicated): 20 units divided into 4 sites in the frontalis muscles 10 units divided into 2 sites in the card scraper muscles 5 units divided into 1 site in the procerus muscle 40 units divided into 8 sites in the temporalis muscles 30 units divided into 6 sites in the occipitalis muscles 30 units divided into 6 sites in the trapezius muscles 20 units divided into 4 sites in the cervical paraspinal muscles Additional 10 units, 2.5 units per site in the frontalis muscle Additional 5 units into the right temporalis muscle Additional 5 units into the right occpitalis muscle. A total of 25 units were discarded as unavoidable waste. The patient tolerated the procedure well and left the clinic without any complications. [facility] 07-20-2024 Procedure note Associated Ord er(s): PREEMPT Chemodenervation: Migraine Post-Procedure Diagnose(s): Intractable migraine without aura and without status migrainosus Botulinum Toxin Injections for Chronic Migraine Interim History Suraj Hawk presents for her 4th session of Botox for chronic migraines. Headaches tend to be over the forehead and right side of the scalp. PREEMPT Chemodenervation: Migraine Date/Time: 07/20/2024 1:30 PM Performed by: Jose Alvarez MD Authorized by: Jose Alvarez MD Comments: Description of Procedure: After discussing the risks and benefits of botulinum toxin, the patient provided informed consent. The patient was placed in the seated position on the examination table. The skin was prepped using alcohol pads. A 30-gauge, 0.5 inch-long needle was used with four 1 cc syringes. Concentration: Two 100 unit vials of botox were diluted into 4 ml of normal saline for a concentration of 50 units/1ml. A total of 175 units of botulinum toxin were used and injected as below (divided equally between left and right unless otherwise indicated): 20 units divided into 4 sites in the frontalis muscles 10 units divided into 2 sites in the card scraper muscles 5 units divided into 1 site in the procerus muscle 40 units divided into 8 sites in the temporalis muscles 30 units divided into 6 sites in the occipitalis muscles 30 units divided into 6 sites in the trapezius muscles 20 units divided into 4 sites in the cervical paraspinal muscles Additional 10 units, 2.5 units per site in the frontalis muscle Additional 5 units into the right temporalis muscle Additional 5 units into the right occpitalis muscle. A total of 25 units were discarded as unavoidable waste. The patient tolerated the procedure well and left the clinic without any complications. documented in this encounter [facility] 06-04-2024 Evaluation + Plan note Associated Problem(s): Primary osteoarthritis of right knee Assessment: Right knee medial arthritis Plan: Euflexxa 3 of 3 administered. She had an excellent lidocaine suppression test. Follow-up in 6 week for reevaluation [facility] Work Phone: 06-04-2024 Miscellaneous Notes Associated Problem(s): Primary osteoarthritis of right knee Assessment: Right knee medial arthritis Plan: Euflexxa 3 of 3 administered. She had an excellent lidocaine suppression test. Follow-up in 6 week for reevaluation documented in this encounter [facility] Work Phone: 06-04-2024 History of Present illness Narrative Associated Order(s): L Inj/Asp: R knee Post-Procedure Diagnose(s): Primary osteoarthritis of right knee Assessment/Plan Encounter Diagnoses: Primary osteoarthritis of right knee Primary osteoarthritis of right knee Assessment: Right knee medial arthritis Plan: Euflexxa 3 of 3 administered. She had an excellent lidocaine suppression test. Follow-up in 6 week for reevaluation Subjective Patient ID: Suraj Hawk is a 48 y.o. female. Chief Complaint: Injections of the Right Knee (Patient here for Euflexxa injection #3) Last Surgery: No surgery found Last Surgery Date: No surgery found HPI 48-year-old female who has been seen for her right knee. She has medial space narrowing and medial arthritis. She has responded well to viscosupplementation injections her last series was in July 2023. More recently she had a cortisone injection and did okay with this. Previous cortisone to have been more effective than the last series she got. She comes in today hoping to get a booster of her cortisone. Her care is modified and complicated by history of rhabdo myelitis. This was probably a drug interaction but the etiology was never firmly diagnosed. 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 This was diagnosed because she was manipulating paperclips at work and touching her face and getting a rash. 05/21/2024-she comes in today for Euflexxa 1 of 3. 05/28/2024-she received Euflexxa 2 of 3. 06/04/2024-she comes in today for Euflexxa 3 of 3. OBJECTIVE: ORTHO EXAM Right knee: Skin healthy and intact No gross swelling or ecchymosis Alignment: Varus Effusion: Scant ROM: 0 degrees Extension 120 degrees Flexion Minimal crepitance with range of motion No pain with internal rotation of the hip Tenderness to palpation: Medial joint line 20 degrees laxity to valgus stress Neutral laxity to varus stress Negative Zachariah s test Negative posterior drawer test Mild pain with Dana s test Neurovascular exam normal distally 2+ DP pulse and good cap refill IMAGE RESULTS: Point of Care Ultrasound These images are not reportable by radiology and will not be interpreted by Radiologists. ULTRASOUND DIAGNOSTIC ULTRASOUND REPORT FINAL: Right KNEE Lumite Injector: Golden Maradiaga MD Indication: Knee Pain Procedure: Ultrasound, extremity, nonvascular, real-time, COMPLETE, anatomic specific Technique: B-Mode Ultrasound Examination performed using 6- 9 MHz linear transducer with [employer] STUDY TYPE: 1. ULTRASOUND EXTREMITY 2. REAL TIME WITH IMAGE DOCUMENTATION 3. NON-VASCULAR 4. COMPLETE STUDY, INCLUDING BUT NOT LIMITED TO MUSCLE, TENDONS, LIGAMENTS, SOFT TISSUES, ADIPOSE TISSUE AND SUBCUTANEOUS TISSUE. Site: KNEE Live ultrasound was performed with of patient's KNEE and PERMANENTLY documented. I personally performed the ultrasound and reviewed the findings. These show: Tami-articular evaluation: An intact Quadriceps Tendon with the Quadriceps Muscle fibers showing normal striations Quadriceps Tendon demonstrating normal fibrillar pattern. . The Patellar Tendon demonstrates normal fibrillar pattern and is intact. No significant soft tissue fluid collection/abscess appreciated. Joint Evaluation: The lateral joint line shows an intact LCL. Medial joint line exam shows an intact MCL. The patellar tendon was within normal limits. Scant joint effusion noted. The patient tolerated the procedure well. L Inj/Asp: R knee on 06/04/2024 9:32 AM Indications: pain Details: 18 G needle, ultrasound-guided superolateral approach Medications: 20 mg sodium hyaluronate 10 mg/mL(mw 2.4 -3.6 million) Procedure, treatment alternatives, risks and benefits explained, specific risks discussed. Immediately prior to procedure a time out was called to verify the correct patient, procedure, equipment, family support coordinator and site/side marked as required. Patient was prepped and draped in the usual sterile fashion. Orders Placed This Encounter Point of Care Ultrasound documented in this encounter [facility] Work Phone: 05-28-2024 Evaluation + Plan note Associated Problem(s): Primary osteoarthritis of right knee Assessment: Right knee medial arthritis Plan: Euflexxa 2 of 3 administered. She had an excellent lidocaine suppression test. Follow-up in 1 week for reevaluation and possible Euflexxa 3 of 3. [facility] Work Phone: 05-28-2024 Miscellaneous Notes Associated Problem(s): Primary osteoarthritis of right knee Assessment: Right knee medial arthritis Plan: Euflexxa 2 of 3 administered. She had an excellent lidocaine suppression test. Follow-up in 1 week for reevaluation and possible Euflexxa 3 of 3. documented in this encounter [facility] Work Phone: 05-28-2024 History of Present illness Narrative Associated Order(s): L Inj/Asp: R knee Post-Procedure Diagnose(s): Primary osteoarthritis of right knee Assessment/Plan Encounter Diagnoses: Primary osteoarthritis of right knee Primary osteoarthritis of right knee Assessment: Right knee medial arthritis Plan: Euflexxa 2 of 3 administered. She had an excellent lidocaine suppression test. Follow-up in 1 week for reevaluation and possible Euflexxa 3 of 3. Subjective Patient ID: Suraj Hawk is a 48 y.o. female. Chief Complaint: Follow-up of the Right Knee (Patient here for Euflexxa injection #2) Last Surgery: No surgery found Last Surgery Date: No surgery found HPI 48-year-old female who has been seen for her right knee. She has medial space narrowing and medial arthritis. She has responded well to viscosupplementation injections her last series was in July 2023. More recently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 investigations: 10/21/2023 AST/ALT 173/225 GFR > 90 CO2 28 CK 4423 Previous AST/ALT 06/18/202312/04/2023 CK 90 AST/ALT 56/60 REVIEW OF SYSTEMS: Neurology 01/06/2024 2nd Botox session proceded with caution with patient understanding Botox could exacerbate any underlying myopathic disorder. PCP 01/01/2024 having more energy pain mostly gone. Troponin back to normal LFTs near normal with normal CK. 11/10/2023 nephrology worried slightly about capillary leak syndrome. Rhabdomyolysis may have been from meds hard to say 100%. Myositis workup negative. 10/29/2023 discharge summary 2nd admission for rhabdomyolysis previous discharge CK to 911, admission for slight elevation at 3:07 a.m. 7 AST/ALT 96/98 given IV fluids Botox 10/02/2023 10/17/2023 ED myalgias generalized fatigue negative COVID initial troponin 489 chest x-ray consolidation/pneumonia-LFTs initially elevated possible interaction between migraine medication, phentermine and/or psoriasis medication. OARRS: Phentermine 37.5 Sleep:hot flashes black cohash/hot flashes similar Caffeine: Head trauma: Water consumption:60-80 Missed meals: Exercise:right knee pain-does not wish knee replacement Depression: Zoloft deployed in past/back home Two children Not back at work yet ALLERGIES: Allergies Allergen Reactions Nickel Rash Sulfa Antibiotics PAST MEDICAL HISTORY: Past Medical History: Diagnosis Date Migraine SOCIAL HISTORY: Social History Socioeconomic History Marital status: Tobacco Use Smoking status: Never Smokeless tobacco: Never Vaping Use Vaping status: Never Used Substance and Sexual Activity Alcohol use: Not Currently Comment: rarely Drug use: No Sexual activity: Yes Partners: Male control/protection: Hysterectomy Comment: I'm so just my . Other Topics Concern Occupational Exposure No Hobby Hazards No Social Determinants of Health Financial Resource Strain: Low Risk (10/28/2023) Received from [facility] Overall Financial Resource Strain (CARDIA) Difficulty of Paying Living Expenses: Not hard at all Transportation Needs: No Transportation Needs (10/28/2023) Received from [facility] PRAPARE - Transportation Lack of Transportation (Medical): No Lack of Transportation (Non-Medical): No Housing Stability: Low Risk (10/28/2023) Received from [facility] Housing Stability Vital Sign Unable to Pay for Housing in the Last Year: No Number of Times Moved in the Last Year: 1 Homeless in the Last Year: No 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 MEDICATIONS PRIOR TO VISIT: Current Outpatient Medications: Rimegepant (Nurtec) 75 MG Tab Dispersible, 1 po every other day for migraine prevention, Disp: 16 tablet, Rfl: 6 Albuterol Sulfate (PROAIR HFA IN), Inhale as needed. (Patient not taking: Reported on 10/27/2020), Disp: , Rfl: Botulinum Toxin Type A 200 units Recon Soln, For prevention of chronic migraine, Disp: 1 Each, Rfl: 0 Budesonide-Formoterol Fumarate (SYMBICORT IN), take by inhalation. (Patient not taking: Reported on 10/27/2020), Disp: , Rfl: Coenzyme Q10 (COQ10 PO), Take by mouth., Disp: , Rfl: Levonorgestrel-Ethinyl Estrad (LILLOW PO), Take by mouth. (Patient not taking: Reported on 10/27/2020), Disp: , Rfl: Loratadine (CLARITIN PO), take by mouth., Disp: , Rfl: Montelukast Sodium (SINGULAIR PO), take by mouth., Disp: , Rfl: naproxen 500 MG tablet, Take 1 tablet by mouth 2 times daily with meals., Disp: , Rfl: Niacin, Antihyperlipidemic, (NIASPAN PO), take by mouth. (Patient not taking: Reported on 10/27/2020), Disp: , Rfl: Ondansetron 4 MG tablet, 1 po q 6 hours prn nausea ( migraine), Disp: 10 tablet, Rfl: 2 Sertraline HCl (ZOLOFT PO), Take 100 mg by mouth every evening. , Disp: , Rfl: PHYSICAL EXAM: Blood pressure 132/70, pulse 107, weight 101.6 kg (224 lb), SpO2 98%. Body mass index is 42.32 kg/m . No weight change Coughing Speech fluent Heart regular rate and rhythm No carotid bruits Rales right lower lung base Gait stable ASSESSMENT/IMPRESSION: Problem List Items Addressed This Visit Cardiovascular Intractable migraine without aura and without status migrainosus - Primary MusculoSkeletal Rhabdomyolysis PLAN: Seeing PCP today consider CXR Nurtec 75 mg every other day Hold on triptans while on sertraline - discussed with patient Extensive research CC, Sofiya, PAULAU-unable to find link between Qulipta and rhabdomyolysis . Seems likely was phentermine though we will avoid Qulipta in future. Follow up 6 months Alexandra Norton DO documented in this encounter [facility] 01-23-2024 Instructions Alexandra Norton DO - 01/23/2024 8:20 AM EST Follow up 6 months documented in this encounter [facility] 01-14-2024 History of Present illness Narrative 48 y.o. female presents for evaluation of URI. Symptoms including cough, congestion, body aches, malaise, and headache have been present for 7 days and refractory to OTC meds. No fever, chills, nausea, vomiting, abdominal pain, CP, or SOB. No exacerbating factors. No known COVID 19/flu exposure. Vitals: 01/14/24 0908 BP: 119/81 Pulse: 90 Resp: 20 Temp: 36.8 C (98.2 F) SpO2: 97% Allergies Allergen Reactions Sulfa (Sulfonamide Antibiotics) Anxiety, Dizziness, Other, Palpitations and Shortness of breath Nickel Rash Medication Documentation Review Audit Reviewed by Lily Omer MA ([employer]) on 01/14/24 at 0907 Medication Order Taking? Sig Documenting Provider Last Dose Status Airsupra 90-80 mcg/actuation inhaler [id number] Yes Inhale 2 puffs 3 times a day as needed. Historical Provider, Active azelastine-fluticasone (Dymista) 137-50 mcg/spray nasal spray [id number] Yes Administer 1 spray into each nostril 2 times a day as needed for rhinitis. Historical ProviderMD Taking Active bimekizumab-bkzx 160 mg/mL auto-injector [id number] Yes Inject 320 mg under the skin every 8 (eight) weeks. Last had 3-4 weeks ago Historical Provider, Taking Active loratadine (Claritin) 10 mg tablet [id number] Yes Take 1 tablet (10 mg) by mouth once daily. Historical Provider, Taking Active montelukast (Singulair) 10 mg tablet [id number] Yes Take 1 tablet (10 mg) by mouth once daily at bedtime. Historical Provider, Taking Active naproxen (Naprosyn) 500 mg tablet [id number] Yes Take 1 tablet (500 mg) by mouth 2 times daily (morning and late afternoon). Bridger Edouard MD Active rimegepant (Nurtec ODT) 75 mg tablet,disintegrating [id number] Yes Dissolve 1 tablet (75 mg) in the mouth every other day. Historical Provider, Taking Active sertraline (Zoloft) 100 mg tablet [id number] Yes Take 1 tablet (100 mg) by mouth once daily. Kingsley Hutchins MD Taking Active Past Medical History: Diagnosis Date Allergic ? Arthritis 01/2022 Encounter for delivery without indication ([facility]) Delivery of by section Encounter for gynecological examination (general) (routine) without abnormal findings Pap test, as part of routine gynecological examination Encounter for gynecological examination (general) (routine) without abnormal findings 09/14/2019 Women's annual routine gynecological examination Headache Maybe 10 years ago Hypercholesteremia Hypoglycemia Migraine Years ago Other conditions influencing health status Menstruation Personal history of other complications of , childbirth and the puerperium History of Personal history of other malignant neoplasm of skin History of skin cancer Personal history of other medical treatment History of mammogram Psoriasis Rhabdomyolysis Past Surgical History: Procedure Laterality Date SECTION, LOW TRANSVERSE 12/04/2003 and 07/05/2007 ENDOMETRIAL ABLATION June 2017 and 2017 ENDOMETRIAL BIOPSY 05/20/2017 OTHER SURGICAL HISTORY 02/18/2019 Dilation and evacuation OTHER SURGICAL HISTORY 07/01/2019 section OTHER SURGICAL HISTORY 07/01/2019 Foot surgery OTHER SURGICAL HISTORY 07/01/2019 Laparoscopy OTHER SURGICAL HISTORY 09/17/2021 Skin lesion excision SINUS SURGERY ? TOTAL ABDOMINAL HYSTERECTOMY 07/02/2018 TUBAL LIGATION June 2017 WISDOM TOOTH EXTRACTION ? ROS See HPI Physical Exam Vitals and nursing note reviewed. Constitutional: Appearance: She is ill-appearing (mildly). HENT: Head: Normocephalic and atraumatic. Right Ear: Tympanic membrane and ear canal normal. Left Ear: Tympanic membrane and ear canal normal. Nose: Congestion present. Mouth/Throat: Mouth: Mucous membranes are moist. Pharynx: Oropharynx is clear. Eyes: Extraocular Movements: Extraocular movements intact. Conjunctiva/sclera: Conjunctivae normal. Pupils: Pupils are equal, round, and reactive to light. Cardiovascular: Rate and Rhythm: Normal rate and regular rhythm. Pulmonary: Effort: Pulmonary effort is normal. No respiratory distress. Breath sounds: Rhonchi (clears with cough) present. No wheezing or rales. Comments: Frequent moist cough Lymphadenopathy: Cervical: No cervical adenopathy. Skin: General: Skin is warm and dry. Neurological: General: No focal deficit present. Mental Status: She is alert and oriented to person, place, and time. Psychiatric: Mood and Affect: Mood normal. Behavior: Behavior normal. Assessment/Plan/MDM Suraj was seen today for cough. Diagnoses and all orders for this visit: Acute bronchitis, unspecified organism (Primary) - azithromycin (Zithromax Z-Tomás) 250 mg tablet; Take 2 tablets (500 mg) on Day 1, followed by 1 tablet (250 mg) once daily on Days 2 through 5. - methylPREDNISolone (Medrol Dospak) 4 mg tablets; Take as directed on package. Encouraged pt to use otc cold remedies PRN, push PO fluids and rest. Patient's clinical presentation is otherwise unremarkable at this time. Patient is discharged with instructions to follow-up with primary care or seek emergency medical attention for worsening symptoms or any new concerns. I did personally review Suraj's past medical history, surgical history, social history, as well as family history (when relevant). In this case, I also oversaw the her drug management by reviewing her medication list, allergy list, as well as the medications that I prescribed during the UC course and/or recommended as an out-patient (including possible OTC medications such as acetaminophen, NSAIDs , etc). After reviewing the items above, I did look at previous medical documentation, such as recent hospitalizations, office visits, and/or recent consultations with PCP/specialist. SDOH: Another factor that I considered in Suraj's care was her Social Determinants of Health (SDOH). During this UC encounter, she did not have social determinants of health. Those SDOH influencing Suraj's care are: none Gaston Verde CNP [facility] [phone] documented in this encounter [facility] Work Phone: 01-06-2024 History of Present illness Narrative Botox ( 200) unit vials [facility]# 5301-3213-99 Lot# [id number] Exp date: 05/06 Saline: ( 4 )ML USE ( 105 ) WASTE ( 95) documented in this encounter [facility] 01-06-2024 Procedure note Associated Ord er(s): PREEMPT Chemodenervation: Migraine Post-Procedure Diagnose(s): Intractable migraine without aura and without status migrainosus Botulinum Toxin Injections for Chronic Migraine Interim History Suraj Hawk presents for her 2nd session of Botox for chronic migraines. She reports a good response to Botox on 10/01. She was admitted for rhabdomyolysis on 10/25, presumed to be secondary to phentermine. She had generalized weakness including weakness of voice and mild weakness of swallow function. No ptosis or head drop. She did have some swelling around her eyes. CK > 4K on presentation and trended down to 90 on 12/03. No prior history of muscle weakness, elevated CK. On brief exam today, she has normal strength. The skin over the eyelids is puffy but there is no ptosis. EOM normal. No facial weakness. No dysarthria/dysphonia,. Strength grossly normal. Gait normal. We did discuss the potential negative effects with Botox. Her spontaneous recovery goes against botulism, but if she does have an underlying myopathic disorder, Botox could potentially cause her to be weak. She demonstrated understanding and stated that wanted to proceed with Botox despite my warning. I will avoid injecting into the cervical paraspinal and trapezius muscles today as a precaution given her problems swallowing in October. PREEMPT Chemodenervation: Migraine Date/Time: 01/06/2024 3:15 PM Performed by: Jose Alvarez MD Authorized by: Jose Alvarez MD Comments: Description of Procedure: After discussing the risks and benefits of botulinum toxin, the patient provided informed consent. The patient was placed in the seated position on the examination table. The skin was prepped using alcohol pads. A 30-gauge, 0.5 inch-long needle was used with four 1 cc syringes. Concentration: Two 100 unit vials of botox were diluted into 4 ml of normal saline for a concentration of 50 units/1ml. A total of 105 units of botulinum toxin were used and injected as below (divided equally between left and right unless otherwise indicated): 20 units divided into 4 sites in the frontalis muscles 10 units divided into 2 sites in the card scraper muscles 5 units divided into 1 site in the procerus muscle 40 units divided into 8 sites in the temporalis muscles 30 units divided into 6 sites in the occipitalis muscles Cervical paraspinal muscles were not injected today Trapezius muscles were not injected today A total of 95 units were discarded as unavoidable waste. The patient tolerated the procedure well and left the clinic without any complications. [facility] 01-06-2024 Procedure note Associated Ord er(s): PREEMPT Chemodenervation: Migraine Post-Procedure Diagnose(s): Intractable migraine without aura and without status migrainosus Botulinum Toxin Injections for Chronic Migraine Interim History Suraj Hawk presents for her 2nd session of Botox for chronic migraines. She reports a good response to Botox on 10/01. She was admitted for rhabdomyolysis on 10/25, presumed to be secondary to phentermine. She had generalized weakness including weakness of voice and mild weakness of swallow function. No ptosis or head drop. She did have some swelling around her eyes. CK > 4K on presentation and trended down to 90 on 12/03. No prior history of muscle weakness, elevated CK. On brief exam today, she has normal strength. The skin over the eyelids is puffy but there is no ptosis. EOM normal. No facial weakness. No dysarthria/dysphonia,. Strength grossly normal. Gait normal. We did discuss the potential negative effects with Botox. Her spontaneous recovery goes against botulism, but if she does have an underlying myopathic disorder, Botox could potentially cause her to be weak. She demonstrated understanding and stated that wanted to proceed with Botox despite my warning. I will avoid injecting into the cervical paraspinal and trapezius muscles today as a precaution given her problems swallowing in October. PREEMPT Chemodenervation: Migraine Date/Time: 01/06/2024 3:15 PM Performed by: Jose Alvarez MD Authorized by: Jose Alvarez MD Comments: Description of Procedure: After discussing the risks and benefits of botulinum toxin, the patient provided informed consent. The patient was placed in the seated position on the examination table. The skin was prepped using alcohol pads. A 30-gauge, 0.5 inch-long needle was used with four 1 cc syringes. Concentration: Two 100 unit vials of botox were diluted into 4 ml of normal saline for a concentration of 50 units/1ml. A total of 105 units of botulinum toxin were used and injected as below (divided equally between left and right unless otherwise indicated): 20 units divided into 4 sites in the frontalis muscles 10 units divided into 2 sites in the card scraper muscles 5 units divided into 1 site in the procerus muscle 40 units divided into 8 sites in the temporalis muscles 30 units divided into 6 sites in the occipitalis muscles Cervical paraspinal muscles were not injected today Trapezius muscles were not injected today A total of 95 units were discarded as unavoidable waste. The patient tolerated the procedure well and left the clinic without any complications. documented in this [facility] 01-01-2024 History of Present illness Narrative Subjective Patient ID: Suraj Hawk is a 48 y.o. female who presents for Follow-up. HPI Another admit for the rhabdomyolysis 10/25-. 48 y.o. female with a history of hyperlipidemia, class III severe obesity who presented to the emergency department late on October 25 complaining of bilateral leg pain. She was just admitted to the hospital from October 16 to October 20 for rhabdomyolysis. Those records were reviewed. On that admission, she presented with a CK level of 4423. This subsequently peaked to 5345 and ultimately improved by discharge to a belinda of 2911. Evaluation during that hospitalization included negative hepatitis panel, HIV, LESTER. There was a question of potential medication induced rhabdomyolysis involving her migraine medication, phentermine, and/or psoriasis medication. She noted that she stopped all of these medications and did not restart them in the interim since her prior hospitalization. Her symptoms started early in the afternoon on 10/25. Laboratory evaluation in the emergency department was notable for CK level 3077, ALT 96, AST 98, albumin 3.3, troponin 43, and white blood cell count 13.8. Creatinine, electrolytes, bilirubin, alkaline phosphatase, BNP, hemoglobin, and platelet count were unremarkable. Chest x-ray showed no acute abnormality. Therapeutic interventions in the emergency department included acetaminophen 975 mg p.o. x 1, prochlorperazine 5 mg IV x 1, and a 1 L bolus of 0.9% normal saline. Patient was admitted for further evaluation and treatment. During the course in the hospital patient was given IV fluids. All her analysis was negative except for smooth muscle antibody which was positive (1:80). And CRP was elevated at 6.7. Urinalysis positive for infection. He was treated with IV antibiotics. Patient symptomatically became better however CPK trended down. She also had elevated troponin was trending down to there is likely noncardiac. Patient had transaminitis, LFTs were elevated. Imaging of ultrasound gallbladder was done which showed some fatty liver and cholelithiasis. Patient recommended follow-up with PCP for trending of LFTs and also recommended weight loss Patient recommended to follow-up with a aircraft cabin cleaner. Patient management stable in the hospital she was discharged home in satisfactory condition 11/05/23 She is feeling about the same. Very weak, some achiness, very tired. Urine was dark but clear now. She is having difficulty with swallowing and slurring speech. Last CK 1707 Troponin 68 trending down Calcium low at 8.5 but no albumin Hemoglobin 11.2 but WBC and platelets OK AST 282 and ALT 275. Urine culture negative Has appointment with Dr Fajardo next week Dr Waller on November 17. She has been off work since October 15 and will keep off till end of 12/01/23 She is having more energy but still very tired. She has been to rheumatology who does not think it is a rheumatology issue but has labs pending She did have normal CK and liver enzymes but Troponin was quite high again. No edema or chest pains. She is developing a cough for a couple weeks. Achy in low backs and hips. She did get about PT. Just intake so far. Hips are very weak. So will start slow at 2 weeks. Very sore the day after PT. Speech and swallowing is much better so no therapy. Has not been to OT yet and may hold on that Just starting to drive again. Dr Fajardo with no additional comments Will keep her off work until the end of December So now OWS 10/26/23 to 01/10/24 RTW tentative 01/11/24 01/01/24 Feeling the best she has felt in months. Less tired. She has been to orthopedics for knee pain since before this. On Naproxen and works well, Reluctant to do surgery. Has been told she needs TKR. As far as the rhabdo she is having more energy and the pain is mostly gone. No nausea or vomiting. Troponin is back to normal and liver enzymes near normal with normal CK. Hepatitis panels negative in hospital.. Anti smooth muscle antibody was borderline at 1:80. BMI 41 so most likely cause for fatty liver seen on US Blood pressure is ;good. No Chest pain, Dyspnea, edema, palpitations, numbness, weakness, claudications, or double vision/ loss of vision. As far as work she is not ready to go back. She would like to keep off to do the PT for a month more and then back to work ECHO for elevated Troponin was normal. OW to 01/30/24. RTW 02/02/24 She will go back for a few days then off for the last week on vacation She follows with Dr Meneses with high cholesterol. She is watching for now Review of Systems Objective BP 124/70 (BP Location: Left arm, Patient Position: Sitting) Pulse 82 Wt 98.9 kg (218 lb) SpO2 99% BMI 41.19 kg/m Physical Exam Vitals reviewed. Constitutional: General: She is not in acute distress. Appearance: Normal appearance. HENT: Head: Normocephalic. Right Ear: Tympanic membrane, ear canal and external ear normal. Left Ear: Tympanic membrane, ear canal and external ear normal. Nose: Nose normal. Mouth/Throat: Mouth: Mucous membranes are moist. Pharynx: Oropharynx is clear. Eyes: Extraocular Movements: Extraocular movements intact. Conjunctiva/sclera: Conjunctivae normal. Pupils: Pupils are equal, round, and reactive to light. Neck: Vascular: No carotid bruit. Cardiovascular: Rate and Rhythm: Normal rate and regular rhythm. Pulses: Normal pulses. Heart sounds: Normal heart sounds. No murmur heard. Pulmonary: Effort: Pulmonary effort is normal. No respiratory distress. Breath sounds: Normal breath sounds. Abdominal: General: Abdomen is flat. Bowel sounds are normal. There is no distension. Palpations: Abdomen is soft. There is no mass. Tenderness: There is no abdominal tenderness. Musculoskeletal: Cervical back: Normal range of motion and neck supple. No tenderness. Lymphadenopathy: Cervical: No cervical adenopathy. Skin: General: Skin is warm and dry. Findings: No rash. Neurological: General: No focal deficit present. Mental Status: She is alert and oriented to person, place, and time. Psychiatric: Mood and Affect: Mood normal. Thought Content: Thought content normal. Judgment: Judgment normal. Assessment/Plan Diagnoses and all orders for this visit: Generalized weakness - Referral to Physical Therapy; Future Non-traumatic rhabdomyolysis - Follow Up In Primary Care - Established - Referral to Physical Therapy; Future Fatty liver - Anti-Smooth Muscle Antibody; Future - Hepatic Function Panel; Future Primary osteoarthritis of right knee - naproxen (Naprosyn) 500 mg tablet; Take 1 tablet (500 mg) by mouth 2 times daily (morning and late afternoon). Class 3 severe obesity due to excess calories without serious comorbidity with body mass index (BMI) of 40.0 to 44.9 in adult documented in this encounter [facility] Work Phone: 12-25-2023 Evaluation + Plan note Associated Problem(s): Primary osteoarthritis of right knee We discussed treatment plan for knee OA sx.. Continue to use hinged knee brace with weightbearing activities prn, may remove with rest and sleep. Cortisone injection provided today with positive lidocaine suppression at end of visit. Patient encouraged light activity today, resume activities as tolerated tomorrow. 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 Reviewed home exercises for knee arthritis. We discussed topical preparations such as Voltaren gel or Salonpas. Regarding recovery from her rhabdomyolysis, I did recommend a protein supplement daily for recovery such as Ensure or carnation instant breakfast added to milk, continue with adequate po hydration. I also recommend a multivitamin for overall supplementation. Continue with follow-up with PCP for ongoing care for the rhabdo. Plan for follow-up here in approximately 3 months for the knee OA, sooner for changes or concerns. This note was generated using Zoodles software. It may contain errors in wording, punctuation or spelling. [facility] Work Phone: 12-25-2023 Miscellaneous Notes Associated Problem(s): Primary osteoarthritis of right knee We discussed treatment plan for knee OA sx.. Continue to use hinged knee brace with weightbearing activities prn, may remove with rest and sleep. Cortisone injection provided today with positive lidocaine suppression at end of visit. Patient encouraged light activity today, resume activities as tolerated tomorrow. 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 Reviewed home exercises for knee arthritis. We discussed topical preparations such as Voltaren gel or Salonpas. Regarding recovery from her rhabdomyolysis, I did recommend a protein supplement daily for recovery such as Ensure or carnation instant breakfast added to milk, continue with adequate po hydration. I also recommend a multivitamin for overall supplementation. Continue with follow-up with PCP for ongoing care for the rhabdo. Plan for follow-up here in approximately 3 months for the knee OA, sooner for changes or concerns. This note was generated using Zoodles software. It may contain errors in wording, punctuation or spelling. documented in this encounter [facility] Work Phone: 12-25-2023 History of Present illness Narrative Associated Order(s): L Inj/Asp: R knee Subjective Patient ID: Suraj Hawk is a 48 y.o. female. Chief Complaint Patient presents with Right Knee - Follow-up, Pain Patient is doing physical therapy and her right knee is painful constantly. Her last cortisone injection was on 09/24/2023. Her last Gel injection series ended on 07/23/23 History of Present Illness Edwina is a pleasant 48-year-old female presenting today for right knee pain, OA and constant aching. Patient had acute onset of rhabdomyolysis requiring 7-day hospital stay sober 2 months ago. Patient continues with PT for generalized weakness and continued recovery. Patient notices her gait is becoming more aggravated with physical therapy. Has been tolerating regular diet, being followed by her PCP with frequent lab testing. Overall she is starting to make some improvements with strength, however the knee is limiting some of her physical activity. No new injuries. Reports improvement. Will hold all Review of Systems Constitutional: no fever, no chills and not feeling tired. ENT: no recent cough or URI sx, no nosebleeds. Cardiovascular: no chest pain. Respiratory: no shortness of breath and no cough. Gastrointestinal: no abdominal pain, no nausea, no vomiting and no diarrhea. Integumentary: no rashes or skin wounds. Neurological: no headache. Psychiatric: no depression and no sleep disturbances. Endocrine: no muscle weakness and no muscle cramps. Hematologic/Lymphatic: no swollen glands and no tendency for easy bruising. MSK: + arthralgias and myalgias OBJECTIVE: ORTHO EXAM Knee Musculoskeletal Exam Gait Limp: right Inspection Right Erythema: none Effusion: none Edema: mild Edema comment: Popliteal fossa, mild to medial aspect of the knee Ecchymosis: none Alignment: varus Left Left knee inspection is normal. Palpation Right Increased warmth: none Masses: none Crepitus: medial Tenderness: present Lateral joint line: mild Medial joint line: moderate Range of Motion Right Active extension: 0 Active flexion: 90 Strength Right Flexion is affected by pain. Instability Right Varus stress grade: normal Valgus stress grade: normal Zachariah: negative Neurovascular Right Pulses - DP: normal Dorsalis pedis: 2+ Capillary refill: brisk and well-perfused IMAGE RESULTS: === 02/21/23 === XR KNEE 1-2 VIEWS RIGHT Narrative & Impression Interpreted By: Josee Salguero, STUDY: XR KNEE RIGHT 1-2 VIEWS; 02/21/2023 8:14 am INDICATION: Signs/Symptoms:pain. COMPARISON: 08/28/2022 ACCESSION NUMBER(S): [id number] ORDERING CLINICIAN: ABRAM MONTES FINDINGS: Two views right knee Severe tricompartment productive degenerative changes. Degenerative changes predominantly involving the medial compartment. No fracture or dislocation. No osseous lesion. Small effusion. IMPRESSION Right knee Severe tricompartment productive degenerative changes. Degenerative changes predominantly involving the medial compartment. Signed by: Josee Salguero 02/21/2023 11:17 AM Dictation workstation: [id number] Patient ID: Suraj Hawk is a 48 y.o. female. L Inj/Asp: R knee on 12/25/2023 8:19 PM Indications: pain and joint swelling Details: 22 G needle, superolateral approach Medications: 40 mg triamcinolone acetonide 40 mg/mL Outcome: tolerated well, no immediate complications We discussed risk and benefits of cortisone injection, patient wishes to proceed via verbal consent. Skin was prepped with Betadine, vapo coolant spray and alcohol. Administered injection of 40 mg Kenalog, 3 cc 2% lidocaine and 3 cc of 0.25% bupivacaine. Patient tolerated injection well with lidocaine suppression. No active bleeding, bandage applied to site. Procedure, treatment alternatives, risks and benefits explained, specific risks discussed. Consent was given by the patient. Immediately prior to procedure a time out was called to verify the correct patient, procedure, equipment, family support coordinator and site/side marked as required. Patient was prepped and draped in the usual sterile fashion. Assessment/Plan Problem List Items Addressed This Visit ICD-10-CM Primary osteoarthritis of right knee - Primary M17.11 We discussed treatment plan for knee OA sx.. Continue to use hinged knee brace with weightbearing activities prn, may remove with rest and sleep. Cortisone injection provided today with positive lidocaine suppression at end of visit. Patient encouraged light activity today, resume activities as tolerated tomorrow. 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 Reviewed home exercises for knee arthritis. We discussed topical preparations such as Voltaren gel or Salonpas. Regarding recovery from her rhabdomyolysis, I did recommend a protein supplement daily for recovery such as Ensure or carnation instant breakfast added to milk, continue with adequate po hydration. I also recommend a multivitamin for overall supplementation. Continue with follow-up with PCP for ongoing care for the rhabdo. Plan for follow-up here in approximately 3 months for the knee OA, sooner for changes or concerns. This note was generated using Zoodles software. It may contain errors in wording, punctuation or spelling. documented in this encounter [facility] Work Phone: 12-01-2023 History of Present illness Narrative Subjective Patient ID: Suraj Hawk is a 48 y.o. female who presents for Follow-up (Cough x2 weeks). HPI Another admit for the rhabdomyolysis 10/25-. 48 y.o. female with a history of hyperlipidemia, class III severe obesity who presented to the emergency department late on October 25 complaining of bilateral leg pain. She was just admitted to the hospital from October 16 to October 20 for rhabdomyolysis. Those records were reviewed. On that admission, she presented with a CK level of 4423. This subsequently peaked to 5345 and ultimately improved by discharge to a belinda of 2911. Evaluation during that hospitalization included negative hepatitis panel, HIV, LESTER. There was a question of potential medication induced rhabdomyolysis involving her migraine medication, phentermine, and/or psoriasis medication. She noted that she stopped all of these medications and did not restart them in the interim since her prior hospitalization. Her symptoms started early in the afternoon on 10/25. Laboratory evaluation in the emergency department was notable for CK level 3077, ALT 96, AST 98, albumin 3.3, troponin 43, and white blood cell count 13.8. Creatinine, electrolytes, bilirubin, alkaline phosphatase, BNP, hemoglobin, and platelet count were unremarkable. Chest x-ray showed no acute abnormality. Therapeutic interventions in the emergency department included acetaminophen 975 mg p.o. x 1, prochlorperazine 5 mg IV x 1, and a 1 L bolus of 0.9% normal saline. Patient was admitted for further evaluation and treatment. During the course in the hospital patient was given IV fluids. All her analysis was negative except for smooth muscle antibody which was positive (1:80). And CRP was elevated at 6.7. Urinalysis positive for infection. He was treated with IV antibiotics. Patient symptomatically became better however CPK trended down. She also had elevated troponin was trending down to there is likely noncardiac. Patient had transaminitis, LFTs were elevated. Imaging of ultrasound gallbladder was done which showed some fatty liver and cholelithiasis. Patient recommended follow-up with PCP for trending of LFTs and also recommended weight loss Patient recommended to follow-up with a aircraft cabin cleaner. Patient management stable in the hospital she was discharged home in satisfactory condition 11/05/23 She is feeling about the same. Very weak, some achiness, very tired. Urine was dark but clear now. She is having difficulty with swallowing and slurring speech. Last CK 1707 Troponin 68 trending down Calcium low at 8.5 but no albumin Hemoglobin 11.2 but WBC and platelets OK AST 282 and ALT 275. Urine culture negative Has appointment with Dr Fajardo next week Dr Waller on November 17. She has been off work since October 15 and will keep off till end of 12/01/23 She is having more energy but still very tired. She has been to rheumatology who does not think it is a rheumatology issue but has labs pending She did have normal CK and liver enzymes but Troponin was quite high again. No edema or chest pains. She is developing a cough for a couple weeks. Achy in low backs and hips. She did get about PT. Just intake so far. Hips are very weak. So will start slow at 2 weeks. Very sore the day after PT. Speech and swallowing is much better so no therapy. Has not been to OT yet and may hold on that Just starting to drive again. Dr Fajardo with no additional comments Will keep her off work until the end of December So now OWS 10/26/23 to 01/10/24 RTW tentative 01/11/24 Review of Systems Objective BP 112/68 (BP Location: Left arm, Patient Position: Sitting) Pulse 78 Wt 98.9 kg (218 lb) SpO2 97% BMI 41.19 kg/m Physical Exam Constitutional: Appearance: Normal appearance. She is obese. Cardiovascular: Rate and Rhythm: Normal rate and regular rhythm. Pulmonary: Effort: Pulmonary effort is normal. Breath sounds: Normal breath sounds. Musculoskeletal: General: Normal range of motion. Right lower leg: No edema. Left lower leg: No edema. Skin: General: Skin is warm and dry. Coloration: Skin is not jaundiced or pale. Findings: No bruising. Neurological: Mental Status: She is alert and oriented to person, place, and time. Motor: Weakness (hips with flexion and abduction but good senior applications architect and foot) present. Psychiatric: Mood and Affect: Mood normal. Behavior: Behavior normal. Thought Content: Thought content normal. Judgment: Judgment normal. Assessment/Plan Diagnoses and all orders for this visit: Non-traumatic rhabdomyolysis Weakness of both hips documented in this encounter [facility] Work Phone: 11-10-2023 History of Present illness Narrative Subjective She is feeling better. Pain is gone. Overall weak but feeling better. Patient ID: Suraj Hawk is a 48 y.o. female who presents for Follow-up ([facility]). HPI Follow-up after a recent hospitalization elevated CPK and Rocephin Abdominal pain questionable etiology. Testing included congenic appendicitis immunofixation infected patient's bilateral reassessment had a myositis panel. Labs today come back and is negative and unremarkable On the she had a significant levophed This has decreased from 2 weeks ago and that she was almost at 5000. Metabolic panel is normal at this time Medications are reviewed Blood pressure is 112/68 Review of Systems Constitutional: Negative. HENT: Negative. Eyes: Negative. Respiratory: Negative. Cardiovascular: Negative. Gastrointestinal: Negative. Endocrine: Negative. Genitourinary: Negative. Musculoskeletal: Negative. Skin: Negative. Allergic/Immunologic: Negative. Neurological: Positive for weakness. Hematological: Negative. Psychiatric/Behavioral: Negative. Objective Physical Exam Constitutional: Appearance: Normal appearance. She is obese. HENT: Head: Normocephalic and atraumatic. Right Ear: External ear normal. Left Ear: External ear normal. Nose: Nose normal. Mouth/Throat: Mouth: Mucous membranes are moist. Pharynx: Oropharynx is clear. Eyes: Extraocular Movements: Extraocular movements intact. Conjunctiva/sclera: Conjunctivae normal. Pupils: Pupils are equal, round, and reactive to light. Cardiovascular: Rate and Rhythm: Normal rate and regular rhythm. Pulmonary: Effort: Pulmonary effort is normal. Breath sounds: Normal breath sounds. Abdominal: General: Abdomen is flat. Palpations: Abdomen is soft. Skin: General: Skin is warm and dry. Neurological: General: No focal deficit present. Mental Status: She is alert and oriented to person, place, and time. Psychiatric: Mood and Affect: Mood normal. Behavior: Behavior normal. Assessment/Plan Problem List Items Addressed This Visit ICD-10-CM Non-traumatic rhabdomyolysis - Primary M62.82 Plan: Renal function is normal Myositis workup is negative SPEP and Immunoglobulin is negative CPK is coming down nicely May have been from meds hard to say 100% Albumin is normalized. I was worried a little about Capillary Leak Syndrome. Follow up with PCP. Call with issues. Elevated CPK: Improving nicely at this time Hypoalbuminemia: Normalized up to 3.5 Muscle pain Obesity Migraine headaches History of psoriasis Debby Fajardo DO 11/10/23 1:24 PM documented in this encounter [facility] Work Phone: 11-06-2023 History of Present illness Narrative Subjective Patient ID: Suraj Hawk is a 48 y.o. female who presents for Follow-up (Hospital discharge, still problems with weakness and speech). HPI Another admit for the rhabdomyolysis 10/25-. 48 y.o. female with a history of hyperlipidemia, class III severe obesity who presented to the emergency department late on October 25 complaining of bilateral leg pain. She was just admitted to the hospital from October 16 to October 20 for rhabdomyolysis. Those records were reviewed. On that admission, she presented with a CK level of 4423. This subsequently peaked to 5345 and ultimately improved by discharge to a belinda of 2911. Evaluation during that hospitalization included negative hepatitis panel, HIV, LESTER. There was a question of potential medication induced rhabdomyolysis involving her migraine medication, phentermine, and/or psoriasis medication. She noted that she stopped all of these medications and did not restart them in the interim since her prior hospitalization. Her symptoms started early in the afternoon on 10/25. Laboratory evaluation in the emergency department was notable for CK level 3077, ALT 96, AST 98, albumin 3.3, troponin 43, and white blood cell count 13.8. Creatinine, electrolytes, bilirubin, alkaline phosphatase, BNP, hemoglobin, and platelet count were unremarkable. Chest x-ray showed no acute abnormality. Therapeutic interventions in the emergency department included acetaminophen 975 mg p.o. x 1, prochlorperazine 5 mg IV x 1, and a 1 L bolus of 0.9% normal saline. Patient was admitted for further evaluation and treatment. During the course in the hospital patient was given IV fluids. All her analysis was negative except for smooth muscle antibody which was positive (1:80). And CRP was elevated at 6.7. Urinalysis positive for infection. He was treated with IV antibiotics. Patient symptomatically became better however CPK trended down. She also had elevated troponin was trending down to there is likely noncardiac. Patient had transaminitis, LFTs were elevated. Imaging of ultrasound gallbladder was done which showed some fatty liver and cholelithiasis. Patient recommended follow-up with PCP for trending of LFTs and also recommended weight loss Patient recommended to follow-up with a aircraft cabin cleaner. Patient management stable in the hospital she was discharged home in satisfactory condition 11/05/23 She is feeling about the same. Very weak, some achiness, very tired. Urine was dark but clear now. She is having difficulty with swallowing and slurring speech. Last CK 1707 Troponin 68 trending down Calcium low at 8.5 but no albumin Hemoglobin 11.2 but WBC and platelets OK AST 282 and ALT 275. Urine culture negative Has appointment with Dr Fajardo next week Dr Waller on November 17. She has been off work since October 15 and will keep off till end november Review of Systems Objective BP 116/70 (BP Location: Left arm, Patient Position: Sitting) Pulse 96 Wt 99.3 kg (219 lb) SpO2 95% BMI 41.40 kg/m Physical Exam Vitals reviewed. Constitutional: General: She is not in acute distress. Appearance: Normal appearance. She is obese. HENT: Head: Normocephalic. Right Ear: Tympanic membrane, ear canal and external ear normal. Left Ear: Tympanic membrane, ear canal and external ear normal. Nose: Nose normal. Mouth/Throat: Pharynx: Oropharynx is clear. Eyes: Extraocular Movements: Extraocular movements intact. Conjunctiva/sclera: Conjunctivae normal. Pupils: Pupils are equal, round, and reactive to light. Neck: Vascular: No carotid bruit. Cardiovascular: Rate and Rhythm: Normal rate and regular rhythm. Pulses: Normal pulses. Heart sounds: Normal heart sounds. No murmur heard. Pulmonary: Effort: Pulmonary effort is normal. No respiratory distress. Breath sounds: Normal breath sounds. Abdominal: General: Abdomen is flat. Bowel sounds are normal. There is no distension. Palpations: Abdomen is soft. There is no mass. Tenderness: There is no abdominal tenderness. Musculoskeletal: General: No tenderness. Cervical back: Normal range of motion and neck supple. No tenderness. Lymphadenopathy: Cervical: No cervical adenopathy. Skin: General: Skin is warm and dry. Findings: Bruising present. No rash. Neurological: General: No focal deficit present. Mental Status: She is alert and oriented to person, place, and time. Psychiatric: Mood and Affect: Mood normal. Thought Content: Thought content normal. Judgment: Judgment normal. Assessment/Plan Diagnoses and all orders for this visit: Hospital discharge follow-up Non-traumatic rhabdomyolysis - Troponin I, High Sensitivity; Future - CK; Future - Comprehensive metabolic panel; Future - CBC; Future Fatty liver documented in this encounter [facility] Work Phone: 10-29-2023 Nurse Note Discharge Note: 10/29/2023 1631 Discharged via wheelchair to private car accompanied by PCT, personal belongings taken with pt, no distress noted, no complaints voiced. Ld LEO [facility] 10-29-2023 Nurse Note Discharge Note: 10/29/2023 1631 Discharged via wheelchair to private car accompanied by PCT, personal belongings taken with pt, no distress noted, no complaints voiced. Ld RN Discharge Note: 10/29/2023 1521 AVS and pt responsibilities reviewed with pt and copy given. Rhabdomyolysis education reviewed with pt and information sheets given. Pt verbalizes understanding of instructions received, verbalizes understanding of when to seek medical attention, denies any home going or personal care needs. Denies further questions or concerns. Reviewed follow up appts with pt and verbalizes understanding. Contact made to Case Management regarding need for Rheumatology consult. Ld RN documented in this encounter [facility] Work Phone: 10-29-2023 Nurse Note Discharge Note: 10/29/2023 1521 AVS and pt responsibilities reviewed with pt and copy given. Rhabdomyolysis education reviewed with pt and information sheets given. Pt verbalizes understanding of instructions received, verbalizes understanding of when to seek medical attention, denies any home going or personal care needs. Denies further questions or concerns. Reviewed follow up appts with pt and verbalizes understanding. Contact made to Case Management regarding need for Rheumatology consult. Ld RN [facility] Work Phone: 10-29-2023 History of Present illness Narrative Medication Education Medication education for Suraj Hawk was provided to the patient for the following medication(s): Augmentin Medication education provided by a Pharmacist: Alternative method of administration Dose, frequency, storage How the medication works and benefits of taking it Importance of compliance Potential duration of therapy Identified potential barriers to education: None Method(s) of Education: Verbal Written materials provided and reviewed An opportunity to ask questions and receive answers was provided. Assessment of understanding the patient : 2= meets goals/outcomes Additional Notes (if applicable): Talked to the patient about only needing to take 1 day worth of antibiotics. Explained to her that she received 2 days worth of antibiotics while in the hospital and would only need one more day to cover any possibility of a urinary tract infection. Provided the patient meds 2 beds for her augmentin prescription. Russell Wilder PharmD 10/29/23 1200 Discharge Planning Who is requesting discharge planning? Provider Home or Post Acute Services None Expected Discharge Disposition Home Does the patient need discharge transport arranged? No Per care round meeting today pt will be discharged today. She is home no needs. [facility] . CT to follow. Gypsy Noriega BSN/RN-TCC Suraj Hawk is a 48 y.o. female on day 1 of admission presenting with Non-traumatic rhabdomyolysis. Subjective Patient seen and examined bedside. She does not have much pain today. She is asking for compression sleeves because her arms are full. Objective Last Recorded Vitals BP 110/75 (Patient Position: Sitting) Pulse 82 Temp 36.7 C (98 F) (Temporal) Resp 18 Wt 104 kg (229 lb 11.5 oz) SpO2 95% Intake/Output last 3 Shifts: Intake/Output Summary (Last 24 hours) at 10/28/2023 1200 Last data filed at 10/28/2023 1157 Gross per 24 hour Intake 350 ml Output 900 ml Net -550 ml Admission Weight Weight: 107 kg (235 lb) (10/26/23 2241) Daily Weight 10/27/23 : 104 kg (229 lb 11.5 oz) Image Results ECG 12 Lead Sinus tachycardia Low voltage QRS Cannot rule out Anterior infarct (cited on or before 18-OCT-2023) Abnormal ECG When compared with ECG of 18-OCT-2023 00:23, No significant change was found Physical Exam Constitutional: Appearance: Normal appearance. HENT: Head: Normocephalic. Right Ear: Tympanic membrane normal. Nose: Nose normal. Mouth/Throat: Mouth: Mucous membranes are dry. Eyes: Pupils: Pupils are equal, round, and reactive to light. Cardiovascular: Rate and Rhythm: Normal rate. Heart sounds: Normal heart sounds. Pulmonary: Effort: Pulmonary effort is normal. Abdominal: Palpations: Abdomen is soft. Musculoskeletal: General: Normal range of motion. Cervical back: Normal range of motion. Skin: General: Skin is dry. Capillary Refill: Capillary refill takes less than 2 seconds. Neurological: General: No focal deficit present. Mental Status: She is alert. Psychiatric: Mood and Affect: Mood normal. Relevant Results Scheduled medications cefTRIAXone, 1 g, intravenous, q24h enoxaparin, 40 mg, subcutaneous, q12h SUGAR influenza, 0.5 mL, intramuscular, During hospitalization montelukast, 10 mg, oral, Nightly pneumoc 20-angel conj-dip cr(PF), 0.5 mL, intramuscular, During hospitalization sertraline, 100 mg, oral, Daily Continuous medications sodium chloride 0.9%, 150 mL/hr, Last Rate: 150 mL/hr (10/28/23 0914) PRN medications PRN medications: acetaminophen OR acetaminophen OR acetaminophen, melatonin, ondansetron ODT OR ondansetron, polyethylene glycol Assessment/Plan 48 year old female presents with myalgia 48-year-old Rhabdomyolysis -CK rising -Persistent CK elevation in symptomatic patient suggests diagnosis, though level is borderline for inclusion -Hydrate with 0.9% NS at 150 mL/hr and recheck CK level in a.m. -Cause unclear. Patient had thorough evaluation as part of prior hospitalization with pertinent negative/normal HIV, viral hepatitis, strep, influenza, COVID, RSV, TSH, Monospot, LESTER, ESR, SPEP, and AMA. Smooth muscle Ab positive 1:80, CRP elevated at 6.7, and immunoglobulin free light chains increased though ratio preserved. UDS negative UA Positive for infection started on ceftriaxone CRP elevated lower than last adm Patient takes sertraline but no evidence of serotonin syndrome otherwise. Nephrology consulted. I have tried to reach to rheumatology downtown but unable to get curbside rheumatology consult. Patient will need follow-up outpatient rheumatology -Consult nephrology for re-evaluation while hospitalized. -May ultimately need muscle biopsy for further clarification. I will reach out to IR if they can do a muscle biopsy Leukocytosis , resolved -Elevated WBC count is new feature kmey uti , not previously seen on hospitalization -Blood culture negative so far -UTI being treated with ceftriaxone Transaminitis , worsening -Likely related to CK elevation -Right upper quadrant ultrasound on prior hospitalization showed fatty liver and cholelithiasis. Viral hepatitis panel unrevealing. -Trend while hospitalized -Will obtain ultrasound again Elevated Troponin , likely muscle origin -Again likely noncardiac, see evaluation on prior hospitalization - trend while here Class III Obesity -Height 154.9 cm and weight listed 107 kg, some component may be related to fluid resuscitation -Recommend follow up with PCP to discuss strategies for weight loss once acute issues resolved. Pastora Ramirez MD 10/28/23 1226 Discharge Planning Living Arrangements Spouse/significant other Support Systems Spouse/significant other Assistance Needed None Type of Residence Private residence Number of Stairs to Enter Residence 5 Number of Stairs Within Residence 17 Do you have animals or pets at home? Yes Type of Animals or Pets two dogs, one cat Who is requesting discharge planning? Provider Home or Post Acute Services None Expected Discharge Disposition Home Does the patient need discharge transport arranged? No Financial Resource Strain How hard is it for you to pay for the very basics like food, housing, medical care, and heating? Not hard Housing Stability In the last 12 months, was there a time when you were not able to pay the mortgage or rent on time? N In the past 12 months, how many times have you moved where you were living? 1 At any time in the past 12 months, were you homeless or living in a assisted (including now)? N Transportation Needs In the past 12 months, has lack of transportation kept you from medical appointments or from getting medications? no In the past 12 months, has lack of transportation kept you from meetings, work, or from getting things needed for daily living? No Care Transitions: Met with patient in room, sitting up in chair. Role of TCC explained. Demographics and contacts verified. Mailing address [address] In [place]; physical address is [address] [place] [address]. PCP is Bridger Edouard. Preferred pharmacy is [facility] in [place]. She is independent with all ADL's and drives self. Denies the need for any DME equipment. [facility] . Discharge plan is home, denies needs. States she is looking for a aircraft cabin cleaner in [place] to follow up with after discharge. No other needs anticipated. Care team available. Bren Monge RN/TCC documented in this encounter [facility] Work Phone: 10-29-2023 Hospital course Narrative Discharge Diagnosis Non-traumatic rhabdomyolysis Issues Requiring Follow-Up Discharge Meds Medication List CONTINUE taking these medications azelastine-fluticasone 137-50 mcg/spray nasal spray; Commonly known as: Dymista bimekizumab-bkzx 160 mg/mL auto-injector; Notes to patient: Resume as you were loratadine 10 mg tablet; Commonly known as: Claritin montelukast 10 mg tablet; Commonly known as: Singulair naproxen 500 mg tablet; Commonly known as: Naprosyn sertraline 100 mg tablet; Commonly known as: Zoloft; Take 1 tablet (100 mg) by mouth once daily. Test Results Pending At Discharge Pending Labs Order Current Status [facility] Demographic Order Collected (10/28/23923) Heavy Metals, Blood Collected (10/28/23923) Heavy Metals, Blood Collected (10/28/23923) Extended Myositis Panel In process Urine Culture In process Blood Culture Preliminary result Blood Culture Preliminary result Hospital Course 48 y.o. female with a history of hyperlipidemia, class III severe obesity who presented to the emergency department late on October 25 complaining of bilateral leg pain. She was just admitted to the hospital from October 16 to October 20 for rhabdomyolysis. Those records were reviewed. On that admission, she presented with a CK level of 4423. This subsequently peaked to 5345 and ultimately improved by discharge to a belinda of 2911. Evaluation during that hospitalization included negative hepatitis panel, HIV, LESTER. There was a question of potential medication induced rhabdomyolysis involving her migraine medication, phentermine, and/or psoriasis medication. She noted that she stopped all of these medications and did not restart them in the interim since her prior hospitalization. Her symptoms started early in the afternoon on 10/25. Laboratory evaluation in the emergency department was notable for CK level 3077, ALT 96, AST 98, albumin 3.3, troponin 43, and white blood cell count 13.8. Creatinine, electrolytes, bilirubin, alkaline phosphatase, BNP, hemoglobin, and platelet count were unremarkable. Chest x-ray showed no acute abnormality. Therapeutic interventions in the emergency department included acetaminophen 975 mg p.o. x 1, prochlorperazine 5 mg IV x 1, and a 1 L bolus of 0.9% normal saline. Patient was admitted for further evaluation and treatment. During the course in the hospital patient was given IV fluids. All her analysis was negative except for smooth muscle antibody which was positive. And CRP was elevated at 6.7. Urinalysis positive for infection. He was treated with IV antibiotics. Patient symptomatically became better however CPK trended down. She also had elevated troponin was trending down to there is likely noncardiac. Patient had transaminitis, LFTs were elevated. Imaging of ultrasound gallbladder was done which showed some fatty liver and cholelithiasis. Patient recommended follow-up with PCP for trending of LFTs and also recommended weight loss Patient recommended to follow-up with a aircraft cabin cleaner. Patient management stable in the hospital she was discharged home in satisfactory condition Pertinent Physical Exam At Time of Discharge Physical Exam Physical Exam Constitutional: Appearance: Normal appearance. HENT: Head: Normocephalic. Right Ear: Tympanic membrane normal. Nose: Nose normal. Mouth/Throat: Mouth: Mucous membranes are dry. Eyes: Pupils: Pupils are equal, round, and reactive to light. Cardiovascular: Rate and Rhythm: Normal rate. Heart sounds: Normal heart sounds. Pulmonary: Effort: Pulmonary effort is normal. Abdominal: Palpations: Abdomen is soft. Musculoskeletal: General: Normal range of motion. Cervical back: Normal range of motion. Skin: General: Skin is dry. Capillary Refill: Capillary refill takes less than 2 seconds. Neurological: General: No focal deficit present. Mental Status: She is alert. Psychiatric: Mood and Affect: Mood normal. Outpatient Follow-Up Future Appointments Date Time Provider Department [facility] 11/06/2023 10:30 AM Bridger Edouard MD [id number] [facility] 11/10/2023 1:30 PM Debby Fajardo DO [id number] [facility] 11/12/2023 7:30 AM MANI [id number] M[facility] [id number] MANI [place] 12/25/2023 4:00 PM Elif Miller, [employer] GR[employer]ER-CHIMNEY BUILDER [id number] [facility] 10/19/2024 8:30 AM Kingsley Hutchins MD [id number] [facility] Pastora Ramirez MD documented in this encounter [facility] Work Phone: 10-29-2023 Hospital Discharge instructions Funmi Granados RN - 10/29/2023 3:08 PM EDT Activity as tolerates. Funmi Granados RN - 10/29/2023 3:08 PM EDT Per previous diet. The following attachments cannot be sent through Care Everywhere.Rhabdomyolysis (Syriac)documented in this encounter [facility] Work Phone: 10-29-2023 Plan of care note Problem: Pain Goal: Takes deep breaths with improved pain control throughout the shift Outcome: Progressing Goal: Turns in bed with improved pain control throughout the shift Outcome: Progressing Goal: Walks with improved pain control throughout the shift Outcome: Progressing Goal: Performs ADL's with improved pain control throughout shift Outcome: Progressing Goal: Participates in PT with improved pain control throughout the shift Outcome: Progressing Goal: Free from opioid side effects throughout the shift Outcome: Progressing Goal: Free from acute confusion related to pain meds throughout the shift Outcome: Progressing Problem: Fall/Injury Goal: Not fall by end of shift Outcome: Progressing Goal: Be free from injury by end of the shift Outcome: Progressing Goal: Verbalize understanding of personal risk factors for fall in the hospital Outcome: Progressing Goal: Verbalize understanding of risk factor reduction measures to prevent injury from fall in the home Outcome: Progressing Goal: Use assistive devices by end of the shift Outcome: Progressing Goal: Pace activities to prevent fatigue by end of the shift Outcome: Progressing Problem: Discharge Planning Goal: Discharge to home or other facility with appropriate resources Outcome: Progressing Problem: Chronic Conditions and Co-morbidities Goal: Patient's chronic conditions and co-morbidity symptoms are monitored and maintained or improved Outcome: Progressing The patient's goals for the shift include I don't have one. The clinical goals for the shift include Patient will have restful sleep this shift. [facility] 10-29-2023 Miscellaneous Notes Problem: Pain Goal: Takes deep breaths with improved pain control throughout the shift Outcome: Progressing Goal: Turns in bed with improved pain control throughout the shift Outcome: Progressing Goal: Walks with improved pain control throughout the shift Outcome: Progressing Goal: Performs ADL's with improved pain control throughout shift Outcome: Progressing Goal: Participates in PT with improved pain control throughout the shift Outcome: Progressing Goal: Free from opioid side effects throughout the shift Outcome: Progressing Goal: Free from acute confusion related to pain meds throughout the shift Outcome: Progressing Problem: Fall/Injury Goal: Not fall by end of shift Outcome: Progressing Goal: Be free from injury by end of the shift Outcome: Progressing Goal: Verbalize understanding of personal risk factors for fall in the hospital Outcome: Progressing Goal: Verbalize understanding of risk factor reduction measures to prevent injury from fall in the home Outcome: Progressing Goal: Use assistive devices by end of the shift Outcome: Progressing Goal: Pace activities to prevent fatigue by end of the shift Outcome: Progressing Problem: Discharge Planning Goal: Discharge to home or other facility with appropriate resources Outcome: Progressing Problem: Chronic Conditions and Co-morbidities Goal: Patient's chronic conditions and co-morbidity symptoms are monitored and maintained or improved Outcome: Progressing The patient's goals for the shift include I don't have one. The clinical goals for the shift include Patient will have restful sleep this shift. The patient's goals for the shift include I don't have one. The clinical goals for the shift include pain control Problem: Pain Goal: Takes deep breaths with improved pain control throughout the shift Outcome: Progressing Problem: Pain Goal: Turns in bed with improved pain control throughout the shift Outcome: Progressing Problem: Pain Goal: Walks with improved pain control throughout the shift Outcome: Progressing Problem: Pain Goal: Performs ADL's with improved pain control throughout shift Outcome: Progressing Problem: Pain Goal: Takes deep breaths with improved pain control throughout the shift Outcome: Progressing Goal: Turns in bed with improved pain control throughout the shift Outcome: Progressing Goal: Walks with improved pain control throughout the shift Outcome: Progressing Goal: Performs ADL's with improved pain control throughout shift Outcome: Progressing Goal: Participates in PT with improved pain control throughout the shift Outcome: Progressing Goal: Free from opioid side effects throughout the shift Outcome: Progressing Goal: Free from acute confusion related to pain meds throughout the shift Outcome: Progressing Problem: Fall/Injury Goal: Not fall by end of shift Outcome: Progressing Goal: Be free from injury by end of the shift Outcome: Progressing Goal: Verbalize understanding of personal risk factors for fall in the hospital Outcome: Progressing Goal: Verbalize understanding of risk factor reduction measures to prevent injury from fall in the home Outcome: Progressing Goal: Use assistive devices by end of the shift Outcome: Progressing Goal: Pace activities to prevent fatigue by end of the shift Outcome: Progressing Problem: Discharge Planning Goal: Discharge to home or other facility with appropriate resources Outcome: Progressing Problem: Chronic Conditions and Co-morbidities Goal: Patient's chronic conditions and co-morbidity symptoms are monitored and maintained or improved Outcome: Progressing The patient's goals for the shift include I don't have one. The clinical goals for the shift include Patient will have no pain this shift. The patient's goals for the shift include I don't have one. The clinical goals for the shift include pain control Over the shift, the patient does not report pain Problem: Pain Goal: Turns in bed with improved pain control throughout the shift Outcome: Progressing Problem: Pain Goal: Walks with improved pain control throughout the shift Outcome: Progressing Problem: Pain Goal: Takes deep breaths with improved pain control throughout the shift Outcome: Progressing documented in this encounter [facility] Work Phone: 10-28-2023 Plan of care note The patient's goals for the shift include I don't have one. The clinical goals for the shift include pain control Problem: Pain Goal: Takes deep breaths with improved pain control throughout the shift Outcome: Progressing Problem: Pain Goal: Turns in bed with improved pain control throughout the shift Outcome: Progressing Problem: Pain Goal: Walks with improved pain control throughout the shift Outcome: Progressing Problem: Pain Goal: Performs ADL's with improved pain control throughout shift Outcome: Progressing [facility] 10-28-2023 Plan of care note Problem: Pain Goal: Takes deep breaths with improved pain control throughout the shift Outcome: Progressing Goal: Turns in bed with improved pain control throughout the shift Outcome: Progressing Goal: Walks with improved pain control throughout the shift Outcome: Progressing Goal: Performs ADL's with improved pain control throughout shift Outcome: Progressing Goal: Participates in PT with improved pain control throughout the shift Outcome: Progressing Goal: Free from opioid side effects throughout the shift Outcome: Progressing Goal: Free from acute confusion related to pain meds throughout the shift Outcome: Progressing Problem: Fall/Injury Goal: Not fall by end of shift Outcome: Progressing Goal: Be free from injury by end of the shift Outcome: Progressing Goal: Verbalize understanding of personal risk factors for fall in the hospital Outcome: Progressing Goal: Verbalize understanding of risk factor reduction measures to prevent injury from fall in the home Outcome: Progressing Goal: Use assistive devices by end of the shift Outcome: Progressing Goal: Pace activities to prevent fatigue by end of the shift Outcome: Progressing Problem: Discharge Planning Goal: Discharge to home or other facility with appropriate resources Outcome: Progressing Problem: Chronic Conditions and Co-morbidities Goal: Patient's chronic conditions and co-morbidity symptoms are monitored and maintained or improved Outcome: Progressing The patient's goals for the shift include I don't have one. The clinical goals for the shift include Patient will have no pain this shift. [facility] Work Phone: 10-27-2023 Plan of care note The patient's goals for the shift include I don't have one. The clinical goals for the shift include pain control Over the shift, the patient does not report pain Problem: Pain Goal: Turns in bed with improved pain control throughout the shift Outcome: Progressing Problem: Pain Goal: Walks with improved pain control throughout the shift Outcome: Progressing Problem: Pain Goal: Takes deep breaths with improved pain control throughout the shift Outcome: Progressing [facility] Work Phone: 10-27-2023 History and physical note History Of Present Illness Suraj Hawk is a 48 y.o. female with a history of hyperlipidemia, class III severe obesity who presented to the emergency department late on October 25 complaining of bilateral leg pain. She was just admitted to the hospital from October 16 to October 20 for rhabdomyolysis. Those records were reviewed. On that admission, she presented with a CK level of 4423. This subsequently peaked to 5345 and ultimately improved by discharge to a belinda of 2911. Evaluation during that hospitalization included negative hepatitis panel, HIV, LESTER. There was a question of potential medication induced rhabdomyolysis involving her migraine medication, phentermine, and/or psoriasis medication. She noted that she stopped all of these medications and did not restart them in the interim since her prior hospitalization. Her symptoms started early in the afternoon on 10/25. She was not doing anything specific. She just got up off of the couch and noticed the pain. It had almost completely gone away after her last hospitalization. She reported the pain was most prominent in her upper lateral hip region on the right. It was also present on the left to a lesser degree. She denied any distal numbness or tingling. She reported taking acetaminophen at home for symptoms without relief. Patient did have botulinum toxin injections for migraines on 10/01. Laboratory evaluation in the emergency department was notable for CK level 3077, ALT 96, AST 98, albumin 3.3, troponin 43, and white blood cell count 13.8. Creatinine, electrolytes, bilirubin, alkaline phosphatase, BNP, hemoglobin, and platelet count were unremarkable. Chest x-ray showed no acute abnormality. Therapeutic interventions in the emergency department included acetaminophen 975 mg p.o. x 1, prochlorperazine 5 mg IV x 1, and a 1 L bolus of 0.9% normal saline. Patient was admitted for further evaluation and treatment. Past Medical History She has a past medical history of Allergic (?), Arthritis (01/2022), Encounter for delivery without indication ([facility]), Encounter for gynecological examination (general) (routine) without abnormal findings, Encounter for gynecological examination (general) (routine) without abnormal findings (09/14/2019), Headache (Maybe 10 years ago), Hypercholesteremia, Hypoglycemia, Migraine (Years ago), Other conditions influencing health status, Personal history of other complications of , childbirth and the puerperium, Personal history of other malignant neoplasm of skin, Personal history of other medical treatment, Psoriasis, and Rhabdomyolysis. Surgical History She has a past surgical history that includes Other surgical history (02/18/2019); Other surgical history (07/01/2019); Other surgical history (07/01/2019); Other surgical history (07/01/2019); Other surgical history (09/17/2021); section, low transverse (12/04/2003 and 07/05/2007); Endometrial ablation (June 2017 and 2017); Sinus surgery (?); Tubal ligation (June 2017); [place] tooth extraction (?); Total abdominal hysterectomy (07/02/2018); and Endometrial biopsy (05/20/2017). Social History She reports that she has quit smoking. Her smoking use included cigarettes. She has never used smokeless tobacco. She reports that she does not currently use alcohol. She reports that she does not use drugs. Family History Family History Problem Relation Name Age of Onset Arthritis Mother Brittnee Irritable bowel syndrome Mother Brittnee COPD Father Golden Heart disease Father Golden Cancer Father Golden Breast cancer Paternal Grandmother [place] Allergies Sulfa (sulfonamide antibiotics) and Nickel Review of Systems Constitutional: Negative for chills and fever. HENT: Negative for postnasal drip and sore throat. Eyes: Negative for pain and visual disturbance. Respiratory: Negative for cough and shortness of breath. Cardiovascular: Negative for chest pain, palpitations and leg swelling. Gastrointestinal: Negative for abdominal pain, diarrhea, nausea and vomiting. Genitourinary: Negative for dysuria and hematuria. Musculoskeletal: Positive for myalgias. Negative for arthralgias and back pain. Skin: Negative for rash and wound. Neurological: Negative for dizziness and headaches. Psychiatric/Behavioral: Negative for dysphoric mood. The patient is not nervous/anxious. Physical Exam Vitals and nursing note reviewed. Constitutional: General: She is not in acute distress. Appearance: She is morbidly obese. She is ill-appearing. HENT: Head: Normocephalic and atraumatic. Right Ear: External ear normal. Left Ear: External ear normal. Nose: Nose normal. No rhinorrhea. Mouth/Throat: Mouth: Mucous membranes are moist. Pharynx: Oropharynx is clear. No oropharyngeal exudate. Eyes: General: No scleral icterus. Right eye: No discharge. Left eye: No discharge. Conjunctiva/sclera: Conjunctivae normal. Cardiovascular: Rate and Rhythm: Normal rate and regular rhythm. Pulses: Normal pulses. Heart sounds: Normal heart sounds. No murmur heard. Pulmonary: Effort: Pulmonary effort is normal. No respiratory distress. Breath sounds: Normal breath sounds. No wheezing or rales. Abdominal: General: Abdomen is flat. There is no distension. Palpations: Abdomen is soft. Tenderness: There is no abdominal tenderness. Musculoskeletal: General: No tenderness. Right lower leg: Edema present. Left lower leg: Edema present. Skin: General: Skin is warm and dry. Capillary Refill: Capillary refill takes less than 2 seconds. Findings: No rash. Neurological: General: No focal deficit present. Mental Status: She is alert and oriented to person, place, and time. Mental status is at baseline. Psychiatric: Mood and Affect: Mood normal. Behavior: Behavior normal. Thought Content: Thought content normal. Judgment: Judgment normal. Last Recorded Vitals BP 128/74 (BP Location: Left arm, Patient Position: Sitting) Pulse (!) 115 Temp 37.3 C (99.1 F) (Oral) Resp (!) 24 Wt 107 kg (235 lb) SpO2 (!) 93% Relevant Results Results for orders placed or performed during the hospital encounter of 10/26/23 (from the past 24 hour(s)) CBC and Auto Differential Result Value Ref Range WBC 13.8 (H) 4.4 - 11.3 x10*3/uL nRBC 0.0 0.0 - 0.0 /100 WBCs RBC 5.52 (H) 4.00 - 5.20 x10*6/uL Hemoglobin 15.1 12.0 - 16.0 g/dL Hematocrit 46.4 (H) 36.0 - 46.0 % MCV 84 80 - 100 fL MCH 27.4 26.0 - 34.0 pg MCHC 32.5 32.0 - 36.0 g/dL RDW 14.9 (H) 11.5 - 14.5 % Platelets 327 150 - 450 x10*3/uL Neutrophils % 87.5 40.0 - 80.0 % Immature Granulocytes %, Automated 2.0 (H) 0.0 - 0.9 % Lymphocytes % 4.0 13.0 - 44.0 % Monocytes % 1.2 2.0 - 10.0 % Eosinophils % 5.0 0.0 - 6.0 % Basophils % 0.3 0.0 - 2.0 % Neutrophils Absolute 12.09 (H) 1.20 - 7.70 x10*3/uL Immature Granulocytes Absolute, Automated 0.27 0.00 - 0.70 x10*3/uL Lymphocytes Absolute 0.55 (L) 1.20 - 4.80 x10*3/uL Monocytes Absolute 0.16 0.10 - 1.00 x10*3/uL Eosinophils Absolute 0.69 0.00 - 0.70 x10*3/uL Basophils Absolute 0.04 0.00 - 0.10 x10*3/uL Basic metabolic panel Result Value Ref Range Glucose 149 (H) 74 - 99 mg/dL Sodium 135 (L) 136 - 145 mmol/L Potassium 4.6 3.5 - 5.3 mmol/L Chloride 103 98 - 107 mmol/L Bicarbonate 23 21 - 32 mmol/L Anion Gap 14 10 - 20 mmol/L Urea Nitrogen 23 6 - 23 mg/dL Creatinine 0.74 0.50 - 1.05 mg/dL eGFR >90 >60 mL/min/1.73m*2 Calcium 10.0 8.6 - 10.3 mg/dL Cardiac Enzymes - CPK Result Value Ref Range Creatine Kinase 3,077 (H) 0 - 215 U/L Troponin I, High Sensitivity Result Value Ref Range Troponin I, High Sensitivity 43 (H) 0 - 13 ng/L B-Type Natriuretic Peptide Result Value Ref Range BNP 23 0 - 99 pg/mL Light Blue Top Result Value Ref Range Extra Tube Hold for add-ons. SST TOP Result Value Ref Range Extra Tube Hold for add-ons. Hepatic function panel Result Value Ref Range Albumin 3.3 (L) 3.4 - 5.0 g/dL Bilirubin, Total 0.9 0.0 - 1.2 mg/dL Bilirubin, Direct 0.2 0.0 - 0.3 mg/dL Alkaline Phosphatase 72 33 - 110 U/L ALT 96 (H) 7 - 45 U/L AST 98 (H) 9 - 39 U/L Total Protein 6.4 6.4 - 8.2 g/dL Henley Top Result Value Ref Range Extra Tube Hold for add-ons. XR chest 1 view Result Date: 10/26/2023 Interpreted By: Desean Dugan, STUDY: XR CHEST 1 VIEW; 10/26/2023 11:20 pm INDICATION: Signs/Symptoms:Shortness of breath. COMPARISON: Chest radiograph 10/17/2023. ACCESSION NUMBER(S): [id number] ORDERING CLINICIAN: JIM ESCOBEDO FINDINGS: CARDIOMEDIASTINAL SILHOUETTE: Cardiomediastinal silhouette is normal in size and configuration. LUNGS/PLEURA: There is subsegmental linear atelectasis in the right lung base. There are no consolidations.There are no pleural effusions. There is no demonstrated pneumothorax. BONES: No evidence of acute osseous abnormality. 1. No evidence of acute cardiopulmonary process. Signed by: Desean Dugan 10/26/2023 11:48 PM Dictation workstation: [id number] ECG 12 lead Result Date: 10/24/2023 Normal sinus rhythm Low voltage QRS Cannot rule out Anterior infarct , age undetermined Abnormal ECG When compared with ECG of 12-FEB-2023 23:03, Minimal criteria for Anterior infarct are now Present Nonspecific T wave abnormality, worse in Lateral leads See ED provider note for full interpretation and clinical correlation Confirmed by Melany Arteaga ([id number]) on 10/24/2023 9:00:37 PM US abdomen limited liver Result Date: 10/21/2023 Interpreted By: David De Jesus, STUDY: US ABDOMEN LIMITED LIVER; 8:32 am INDICATION: Signs/Symptoms:Elevated LFT. COMPARISON: None. ACCESSION NUMBER(S): [id number] ORDERING CLINICIAN: ARABELLA EDWARDS TECHNIQUE: Limited abdominal ultrasound of the right upper quadrant was performed utilizing henley scale imaging. FINDINGS: Liver: There is diffuse increased echogenicity of the hepatic parenchyma which can be seen with fatty infiltration or cirrhosis of the liver. Gallbladder: Gallbladder is filled with stones with resultant acoustic shadowing. Sonographic Lynch's sign: Negative Pancreas: Pancreas is predominantly obscured by bowel gas. CBD: 0.33 cm Right Kidney: No pathologic findings are noted. 1. Probable fatty infiltration of the liver. 2. Cholelithiasis. MACRO: None. Signed by: David De Jesus 10/21/2023 8:34 AM Dictation workstation: [id number] Transthoracic Echo (TTE) Complete Result Date: 10/20/2023 [place] [address] [id number], TRANSTHORACIC ECHOCARDIOGRAM REPORT Patient Name: SURAJ Lin KENN Reading Physician: [id number] Stephon Olivares MD Study Date: 10/20/2023 Ordering Provider: [id number] JUSTIN OLIVARES MRN/PID: [id number] Fellow: Nurse: Patsy Norton RN Date of /Age: 7 1975 / 48 years Lumite Injector: Clarisa Gramajo RVT, FELICIA Gender: F Additional Staff: Height: 154.94 cm Admit Date: 10/17/2023 Weight: 105.24 kg Admission Status: Inpatient - Routine BSA / BMI: 2.01 m2 / 43.84 kg/m2 Department Location: [address] Blood Pressure: 135 /71 mmHg Study Type: TRANSTHORACIC ECHO (TTE) COMPLETE Diagnosis/ICD: Elevated Troponin-R79.89 Indication: Elevated Troponin CPT Codes: Echo Complete w Full Doppler-98100 Patient History: Pertinent History: No previous echo. Study Detail: The following Echo studies were performed: 2D, M-Mode, Doppler and color flow. Definity used as a contrast agent for endocardial border definition. Total contrast used for this procedure was 2 mL via IV push. A bubble study was not performed. The patient was awake. PHYSICIAN INTERPRETATION: Left Ventricle: Left ventricular ejection fraction is normal, by visual estimate at 60%. There are no regional wall motion abnormalities. The left ventricular cavity size is normal. There is mild concentric left ventricular hypertrophy. Spectral Doppler shows a normal pattern of left ventricular diastolic filling. Left Atrium: The left atrium is normal in size. Right Ventricle: The right ventricle is mildly enlarged. There is normal right ventricular global systolic function. Right Atrium: The right atrium is normal in size. Aortic Valve: The aortic valve is probably trileaflet. The aortic valve dimensionless index is 0.71. There is no evidence of aortic valve regurgitation. The peak instantaneous gradient of the aortic valve is 16.8 mmHg. The mean gradient of the aortic valve is 9.0 mmHg. Mitral Valve: The mitral valve is normal in structure. There is no evidence of mitral valve regurgitation. Tricuspid Valve: The tricuspid valve was not well visualized. There is trace tricuspid regurgitation. Pulmonic Valve: The pulmonic valve is not well visualized. There is no indication of pulmonic valve regurgitation. Pericardium: There is no pericardial effusion noted. Aorta: The aortic root is normal. Systemic Veins: The inferior vena cava appears to be of normal size. There is IVC inspiratory collapse greater than 50%. CONCLUSIONS: 1. Left ventricular ejection fraction is normal, by visual estimate at 60%. 2. There is normal right ventricular global systolic function. 3. Mildly enlarged right ventricle. QUANTITATIVE DATA SUMMARY: 2D MEASUREMENTS: Normal Ranges: Ao Root d: 2.70 cm (2.0-3.7cm) LAs: 3.00 cm (2.7-4.0cm) IVSd: 1.23 cm (0.6-1.1cm) LVPWd: 1.23 cm (0.6-1.1cm) LVIDd: 3.97 cm (3.9-5.9cm) LVIDs: 2.51 cm LV Mass Index: 84.4 g/m2 LV % FS 36.8 % LA VOLUME: Normal Ranges: LA Vol A4C: 15.0 ml (22+/-6mL/m2) LA Vol A2C: 19.6 ml LA Vol BP: 19.0 ml LA Vol Index A4C: 7.5ml/m2 LA Vol Index A2C: 9.8 ml/m2 LA Vol Index BP: 9.4 ml/m2 LA Area A4C: 9.2 cm2 LA Area A2C: 9.5 cm2 LA Major Hettick A4C: 4.8 cm LA Major Hettick A2C: 3.9 cm LA Volume Index: 9.5 ml/m2 LA Vol A4C: 15.1 ml LA Vol A2C: 19.1 ml LA Vol Index BSA: 8.5 ml/m2 M-MODE MEASUREMENTS: Normal Ranges: AoV Exc: 2.00 cm (1.5-2.5cm) AORTA MEASUREMENTS: Normal Ranges: AoV Exc: 2.00 cm (1.5-2.5cm) LV SYSTOLIC FUNCTION BY 2D PLANIMETRY (MOD): Normal Ranges: EF-A4C View: 70 % (>=55%) EF-A2C View: 73 % EF-Biplane: 71 % EF-Visual: 60 % LV EF Reported: 60 % LV DIASTOLIC FUNCTION: Normal Ranges: MV Peak E: 1.17 m/s (0.7-1.2 m/s) MV Peak A: 1.10 m/s (0.42-0.7 m/s) E/A Ratio: 1.06 (1.0-2.2) MV e' 0.104 m/s (>8.0) MV lateral e' 0.11 m/s MV medial e' 0.10 m/s E/e' Ratio: 11.30 (<8.0) MITRAL VALVE: Normal Ranges: MV DT: 148 msec (150-240msec) AORTIC VALVE: Normal Ranges: AoV Vmax: 2.05 m/s (<=1.7m/s) AoV Peak P.8 mmHg (<20mmHg) AoV Mean P.0 mmHg (1.7-11.5mmHg) LVOT Max Zurdo: 1.48 m/s (<=1.1m/s) AoV VTI: 37.40 cm (18-25cm) LVOT VTI: 26.60 cm LVOT Diameter: 1.70 cm (1.8-2.4cm) AoV Area, VTI: 1.61 cm2 (2.5-5.5cm2) AoV Area,Vmax: 1.64 cm2 (2.5-4.5cm2) AoV Dimensionless Index: 0.71 RIGHT VENTRICLE: RV Basal 4.12 cm RV Mid 3.51 cm RV Major 6.1 cm TAPSE: 22.6 mm PULMONIC VALVE: Normal Ranges: PV Accel Time: 95 msec (>120ms) PV Max Zurdo: 1.4 m/s (0.6-0.9m/s) PV Max P.6 mmHg [id number] Stephon Olivares MD Electronically signed on 10/20/2023 at 9:58:47 AM Final XR chest 1 view Result Date: 10/17/2023 Interpreted By: Merlin Tapia, STUDY: XR CHEST 1 VIEW; 10/17/2023 10:25 pm INDICATION: Signs/Symptoms:Weakness. COMPARISON: 02/13/2023 ACCESSION NUMBER(S): [id number] ORDERING CLINICIAN: CARRIE ALEJO FINDINGS: There is elevation of the right hemidiaphragm right basilar airspace opacity which is new from 02/13/2023. Normal heart size. No pneumothorax. Indistinctness of the right costophrenic sulcus may reflect a small pleural effusion. 0.8 cm pulmonary nodular opacity projected over the right upper lung which is similar to 144. Upper abdomen is unremarkable. 1. There is elevation of the right hemidiaphragm right basilar airspace opacity which is new from 02/13/2023. Possible small right pleural effusion. Consider atelectasis or consolidation/pneumonia. 2. Pulmonary nodule as seen on the 02/13/2023 CT. Signed by: Merlin Tapia 10/17/2023 11:06 PM Dictation workstation: [id number] PREEMPT Chemodenervation: Migraine Result Date: 10/02/2023 Jose Alvarez MD 10/02/2023 1:54 PM PREEMPT Chemodenervation: Migraine Date/Time: 10/02/2023 1:45 PM Performed by: Jose Alvarez MD Authorized by: Jose Alvarez MD Comments: Description of Procedure: After discussing the risks and benefits of botulinum toxin, the patient provided informed consent. The patient was placed in the seated position on the examination table. The skin was prepped using alcohol pads. A 30-gauge, 0.5 inch-long needle was used with four 1 cc syringes. Concentration: Two 100 unit vials of botox were diluted into 4 ml of normal saline for a concentration of 50 units/1ml. A total of 155 units of botulinum toxin were used and injected as below (divided equally between left and right unless otherwise indicated): 20 units divided into 4 sites in the frontalis muscles 10 units divided into 2 sites in the card scraper muscles 5 units divided into 1 site in the procerus muscle 40 units divided into 8 sites in the temporalis muscles 30 units divided into 6 sites in the occipitalis muscles 30 units divided into 6 sites in the trapezius muscles 20 units divided into 4 sites in the cervical paraspinal muscles A total of 45 units were discarded as unavoidable waste. The patient tolerated the procedure well and left the clinic without any complications. Assessment/Plan Rhabdomyolysis -Persistent CK elevation in symptomatic patient suggests diagnosis, though level is borderline for inclusion -Hydrate with 0.9% NS at 150 mL/hr and recheck CK level in a.m. -Cause unclear. Patient had thorough evaluation as part of prior hospitalization with pertinent negative/normal HIV, viral hepatitis, strep, influenza, COVID, RSV, TSH, Monospot, LESTER, ESR, SPEP, and AMA. Smooth muscle Ab positive 1:80, CRP elevated at 6.7, and immunoglobulin free light chains increased though ratio preserved. Urinalysis and urine drug abuse screen ordered in ED and pending. Patient takes sertraline but no evidence of serotonin syndrome otherwise. -Add on carboxyhemoglobin, heavy metal screen, ionized calcium, phosphorus, myositis-specific autoantibodies. Repeat ESR and CRP. -Consult nephrology for re-evaluation while hospitalized. -May ultimately need muscle biopsy for further clarification. Leukocytosis -Elevated WBC count is new feature, not previously seen on hospitalization -Given presence of elevated CK level with leukocytosis, check blood cultures x 2 to ensure no occult bacteremia. -Also check urinalysis with reflex -Trend with treatment of underlying condition off antibiotics for now Transaminitis -Likely related to CK elevation -Right upper quadrant ultrasound on prior hospitalization showed fatty liver and cholelithiasis. Viral hepatitis panel unrevealing. -Trend while hospitalized Elevated Troponin -Again likely noncardiac, see evaluation on prior hospitalization -Recheck in a.m. to ensure no dramatic rise -Monitor on telemetry Class III Obesity -Height 154.9 cm and weight listed 107 kg, some component may be related to fluid resuscitation -Recommend follow up with PCP to discuss strategies for weight loss once acute issues resolved. Rony Montiel MD [facility] Work Phone: 10-27-2023 History and physical note History Of Present Illness Suraj Hawk is a 48 y.o. female with a history of hyperlipidemia, class III severe obesity who presented to the emergency department late on October 25 complaining of bilateral leg pain. She was just admitted to the hospital from October 16 to October 20 for rhabdomyolysis. Those records were reviewed. On that admission, she presented with a CK level of 4423. This subsequently peaked to 5345 and ultimately improved by discharge to a belinda of 2911. Evaluation during that hospitalization included negative hepatitis panel, HIV, LESTER. There was a question of potential medication induced rhabdomyolysis involving her migraine medication, phentermine, and/or psoriasis medication. She noted that she stopped all of these medications and did not restart them in the interim since her prior hospitalization. Her symptoms started early in the afternoon on 10/25. She was not doing anything specific. She just got up off of the couch and noticed the pain. It had almost completely gone away after her last hospitalization. She reported the pain was most prominent in her upper lateral hip region on the right. It was also present on the left to a lesser degree. She denied any distal numbness or tingling. She reported taking acetaminophen at home for symptoms without relief. Patient did have botulinum toxin injections for migraines on 10/01. Laboratory evaluation in the emergency department was notable for CK level 3077, ALT 96, AST 98, albumin 3.3, troponin 43, and white blood cell count 13.8. Creatinine, electrolytes, bilirubin, alkaline phosphatase, BNP, hemoglobin, and platelet count were unremarkable. Chest x-ray showed no acute abnormality. Therapeutic interventions in the emergency department included acetaminophen 975 mg p.o. x 1, prochlorperazine 5 mg IV x 1, and a 1 L bolus of 0.9% normal saline. Patient was admitted for further evaluation and treatment. Past Medical History She has a past medical history of Allergic (?), Arthritis (01/2022), Encounter for delivery without indication ([facility]), Encounter for gynecological examination (general) (routine) without abnormal findings, Encounter for gynecological examination (general) (routine) without abnormal findings (09/14/2019), Headache (Maybe 10 years ago), Hypercholesteremia, Hypoglycemia, Migraine (Years ago), Other conditions influencing health status, Personal history of other complications of , childbirth and the puerperium, Personal history of other malignant neoplasm of skin, Personal history of other medical treatment, Psoriasis, and Rhabdomyolysis. Surgical History She has a past surgical history that includes Other surgical history (02/18/2019); Other surgical history (07/01/2019); Other surgical history (07/01/2019); Other surgical history (07/01/2019); Other surgical history (09/17/2021); section, low transverse (12/04/2003 and 07/05/2007); Endometrial ablation (June 2017 and 2017); Sinus surgery (?); Tubal ligation (June 2017); [place] tooth extraction (?); Total abdominal hysterectomy (07/02/2018); and Endometrial biopsy (05/20/2017). Social History She reports that she has quit smoking. Her smoking use included cigarettes. She has never used smokeless tobacco. She reports that she does not currently use alcohol. She reports that she does not use drugs. Family History Family History Problem Relation Name Age of Onset Arthritis Mother Brittnee Irritable bowel syndrome Mother Brittnee COPD Father Golden Heart disease Father Golden Cancer Father Golden Breast cancer Paternal Grandmother [place] Allergies Sulfa (sulfonamide antibiotics) and Nickel Review of Systems Constitutional: Negative for chills and fever. HENT: Negative for postnasal drip and sore throat. Eyes: Negative for pain and visual disturbance. Respiratory: Negative for cough and shortness of breath. Cardiovascular: Negative for chest pain, palpitations and leg swelling. Gastrointestinal: Negative for abdominal pain, diarrhea, nausea and vomiting. Genitourinary: Negative for dysuria and hematuria. Musculoskeletal: Positive for myalgias. Negative for arthralgias and back pain. Skin: Negative for rash and wound. Neurological: Negative for dizziness and headaches. Psychiatric/Behavioral: Negative for dysphoric mood. The patient is not nervous/anxious. Physical Exam Vitals and nursing note reviewed. Constitutional: General: She is not in acute distress. Appearance: She is morbidly obese. She is ill-appearing. HENT: Head: Normocephalic and atraumatic. Right Ear: External ear normal. Left Ear: External ear normal. Nose: Nose normal. No rhinorrhea. Mouth/Throat: Mouth: Mucous membranes are moist. Pharynx: Oropharynx is clear. No oropharyngeal exudate. Eyes: General: No scleral icterus. Right eye: No discharge. Left eye: No discharge. Conjunctiva/sclera: Conjunctivae normal. Cardiovascular: Rate and Rhythm: Normal rate and regular rhythm. Pulses: Normal pulses. Heart sounds: Normal heart sounds. No murmur heard. Pulmonary: Effort: Pulmonary effort is normal. No respiratory distress. Breath sounds: Normal breath sounds. No wheezing or rales. Abdominal: General: Abdomen is flat. There is no distension. Palpations: Abdomen is soft. Tenderness: There is no abdominal tenderness. Musculoskeletal: General: No tenderness. Right lower leg: Edema present. Left lower leg: Edema present. Skin: General: Skin is warm and dry. Capillary Refill: Capillary refill takes less than 2 seconds. Findings: No rash. Neurological: General: No focal deficit present. Mental Status: She is alert and oriented to person, place, and time. Mental status is at baseline. Psychiatric: Mood and Affect: Mood normal. Behavior: Behavior normal. Thought Content: Thought content normal. Judgment: Judgment normal. Last Recorded Vitals BP 128/74 (BP Location: Left arm, Patient Position: Sitting) Pulse (!) 115 Temp 37.3 C (99.1 F) (Oral) Resp (!) 24 Wt 107 kg (235 lb) SpO2 (!) 93% Relevant Results Results for orders placed or performed during the hospital encounter of 10/26/23 (from the past 24 hour(s)) CBC and Auto Differential Result Value Ref Range WBC 13.8 (H) 4.4 - 11.3 x10*3/uL nRBC 0.0 0.0 - 0.0 /100 WBCs RBC 5.52 (H) 4.00 - 5.20 x10*6/uL Hemoglobin 15.1 12.0 - 16.0 g/dL Hematocrit 46.4 (H) 36.0 - 46.0 % MCV 84 80 - 100 fL MCH 27.4 26.0 - 34.0 pg MCHC 32.5 32.0 - 36.0 g/dL RDW 14.9 (H) 11.5 - 14.5 % Platelets 327 150 - 450 x10*3/uL Neutrophils % 87.5 40.0 - 80.0 % Immature Granulocytes %, Automated 2.0 (H) 0.0 - 0.9 % Lymphocytes % 4.0 13.0 - 44.0 % Monocytes % 1.2 2.0 - 10.0 % Eosinophils % 5.0 0.0 - 6.0 % Basophils % 0.3 0.0 - 2.0 % Neutrophils Absolute 12.09 (H) 1.20 - 7.70 x10*3/uL Immature Granulocytes Absolute, Automated 0.27 0.00 - 0.70 x10*3/uL Lymphocytes Absolute 0.55 (L) 1.20 - 4.80 x10*3/uL Monocytes Absolute 0.16 0.10 - 1.00 x10*3/uL Eosinophils Absolute 0.69 0.00 - 0.70 x10*3/uL Basophils Absolute 0.04 0.00 - 0.10 x10*3/uL Basic metabolic panel Result Value Ref Range Glucose 149 (H) 74 - 99 mg/dL Sodium 135 (L) 136 - 145 mmol/L Potassium 4.6 3.5 - 5.3 mmol/L Chloride 103 98 - 107 mmol/L Bicarbonate 23 21 - 32 mmol/L Anion Gap 14 10 - 20 mmol/L Urea Nitrogen 23 6 - 23 mg/dL Creatinine 0.74 0.50 - 1.05 mg/dL eGFR >90 >60 mL/min/1.73m*2 Calcium 10.0 8.6 - 10.3 mg/dL Cardiac Enzymes - CPK Result Value Ref Range Creatine Kinase 3,077 (H) 0 - 215 U/L Troponin I, High Sensitivity Result Value Ref Range Troponin I, High Sensitivity 43 (H) 0 - 13 ng/L B-Type Natriuretic Peptide Result Value Ref Range BNP 23 0 - 99 pg/mL Light Blue Top Result Value Ref Range Extra Tube Hold for add-ons. SST TOP Result Value Ref Range Extra Tube Hold for add-ons. Hepatic function panel Result Value Ref Range Albumin 3.3 (L) 3.4 - 5.0 g/dL Bilirubin, Total 0.9 0.0 - 1.2 mg/dL Bilirubin, Direct 0.2 0.0 - 0.3 mg/dL Alkaline Phosphatase 72 33 - 110 U/L ALT 96 (H) 7 - 45 U/L AST 98 (H) 9 - 39 U/L Total Protein 6.4 6.4 - 8.2 g/dL Henley Top Result Value Ref Range Extra Tube Hold for add-ons. XR chest 1 view Result Date: 10/26/2023 Interpreted By: Desean Dugan, STUDY: XR CHEST 1 VIEW; 10/26/2023 11:20 pm INDICATION: Signs/Symptoms:Shortness of breath. COMPARISON: Chest radiograph 10/17/2023. ACCESSION NUMBER(S): [id number] ORDERING CLINICIAN: JIM ESCOBEDO FINDINGS: CARDIOMEDIASTINAL SILHOUETTE: Cardiomediastinal silhouette is normal in size and configuration. LUNGS/PLEURA: There is subsegmental linear atelectasis in the right lung base. There are no consolidations.There are no pleural effusions. There is no demonstrated pneumothorax. BONES: No evidence of acute osseous abnormality. 1. No evidence of acute cardiopulmonary process. Signed by: Desean Dugan 10/26/2023 11:48 PM Dictation workstation: [id number] ECG 12 lead Result Date: 10/24/2023 Normal sinus rhythm Low voltage QRS Cannot rule out Anterior infarct , age undetermined Abnormal ECG When compared with ECG of 12-FEB-2023 23:03, Minimal criteria for Anterior infarct are now Present Nonspecific T wave abnormality, worse in Lateral leads See ED provider note for full interpretation and clinical correlation Confirmed by Melany Arteaga ([id number]) on 10/24/2023 9:00:37 PM US abdomen limited liver Result Date: 10/21/2023 Interpreted By: David De Jesus, STUDY: US ABDOMEN LIMITED LIVER; 8:32 am INDICATION: Signs/Symptoms:Elevated LFT. COMPARISON: None. ACCESSION NUMBER(S): [id number] ORDERING CLINICIAN: ARABELLA EDWARDS TECHNIQUE: Limited abdominal ultrasound of the right upper quadrant was performed utilizing henley scale imaging. FINDINGS: Liver: There is diffuse increased echogenicity of the hepatic parenchyma which can be seen with fatty infiltration or cirrhosis of the liver. Gallbladder: Gallbladder is filled with stones with resultant acoustic shadowing. Sonographic Lynch's sign: Negative Pancreas: Pancreas is predominantly obscured by bowel gas. CBD: 0.33 cm Right Kidney: No pathologic findings are noted. 1. Probable fatty infiltration of the liver. 2. Cholelithiasis. MACRO: None. Signed by: David De Jesus 10/21/2023 8:34 AM Dictation workstation: [id number] Transthoracic Echo (TTE) Complete Result Date: 10/20/2023 [place] [address] [id number], TRANSTHORACIC ECHOCARDIOGRAM REPORT Patient Name: SURAJ HAWK Reading Physician: [id number] Stephon Olivares MD Study Date: 10/20/2023 Ordering Provider: [id number] JUSTIN OLIVARES MRN/PID: [id number] Fellow: Nurse: Patsy Norton RN Date of /Age: 7 1975 / 48 years Lumite Injector: FELICIA Johnson RVT Gender: F Additional Staff: Height: 154.94 cm Admit Date: 10/17/2023 Weight: 105.24 kg Admission Status: Inpatient - Routine BSA / BMI: 2.01 m2 / 43.84 kg/m2 Department Location: [address] Blood Pressure: 135 /71 mmHg Study Type: TRANSTHORACIC ECHO (TTE) COMPLETE Diagnosis/ICD: Elevated Troponin-R79.89 Indication: Elevated Troponin CPT Codes: Echo Complete w Full [id number] Patient History: Pertinent History: No previous echo. Study Detail: The following Echo studies were performed: 2D, M-Mode, Doppler and color flow. Definity used as a contrast agent for endocardial border definition. Total contrast used for this procedure was 2 mL via IV push. A bubble study was not performed. The patient was awake. PHYSICIAN INTERPRETATION: Left Ventricle: Left ventricular ejection fraction is normal, by visual estimate at 60%. There are no regional wall motion abnormalities. The left ventricular cavity size is normal. There is mild concentric left ventricular hypertrophy. Spectral Doppler shows a normal pattern of left ventricular diastolic filling. Left Atrium: The left atrium is normal in size. Right Ventricle: The right ventricle is mildly enlarged. There is normal right ventricular global systolic function. Right Atrium: The right atrium is normal in size. Aortic Valve: The aortic valve is probably trileaflet. The aortic valve dimensionless index is 0.71. There is no evidence of aortic valve regurgitation. The peak instantaneous gradient of the aortic valve is 16.8 mmHg. The mean gradient of the aortic valve is 9.0 mmHg. Mitral Valve: The mitral valve is normal in structure. There is no evidence of mitral valve regurgitation. Tricuspid Valve: The tricuspid valve was not well visualized. There is trace tricuspid regurgitation. Pulmonic Valve: The pulmonic valve is not well visualized. There is no indication of pulmonic valve regurgitation. Pericardium: There is no pericardial effusion noted. Aorta: The aortic root is normal. Systemic Veins: The inferior vena cava appears to be of normal size. There is IVC inspiratory collapse greater than 50%. CONCLUSIONS: 1. Left ventricular ejection fraction is normal, by visual estimate at 60%. 2. There is normal right ventricular global systolic function. 3. Mildly enlarged right ventricle. QUANTITATIVE DATA SUMMARY: 2D MEASUREMENTS: Normal Ranges: Ao Root d: 2.70 cm (2.0-3.7cm) LAs: 3.00 cm (2.7-4.0cm) IVSd: 1.23 cm (0.6-1.1cm) LVPWd: 1.23 cm (0.6-1.1cm) LVIDd: 3.97 cm (3.9-5.9cm) LVIDs: 2.51 cm LV Mass Index: 84.4 g/m2 LV % FS 36.8 % LA VOLUME: Normal Ranges: LA Vol A4C: 15.0 ml (22+/-6mL/m2) LA Vol A2C: 19.6 ml LA Vol BP: 19.0 ml LA Vol Index A4C: 7.5ml/m2 LA Vol Index A2C: 9.8 ml/m2 LA Vol Index BP: 9.4 ml/m2 LA Area A4C: 9.2 cm2 LA Area A2C: 9.5 cm2 LA Major Hettick A4C: 4.8 cm LA Major Hettick A2C: 3.9 cm LA Volume Index: 9.5 ml/m2 LA Vol A4C: 15.1 ml LA Vol A2C: 19.1 ml LA Vol Index BSA: 8.5 ml/m2 M-MODE MEASUREMENTS: Normal Ranges: AoV Exc: 2.00 cm (1.5-2.5cm) AORTA MEASUREMENTS: Normal Ranges: AoV Exc: 2.00 cm (1.5-2.5cm) LV SYSTOLIC FUNCTION BY 2D PLANIMETRY (MOD): Normal Ranges: EF-A4C View: 70 % (>=55%) EF-A2C View: 73 % EF-Biplane: 71 % EF-Visual: 60 % LV EF Reported: 60 % LV DIASTOLIC FUNCTION: Normal Ranges: MV Peak E: 1.17 m/s (0.7-1.2 m/s) MV Peak A: 1.10 m/s (0.42-0.7 m/s) E/A Ratio: 1.06 (1.0-2.2) MV e' 0.104 m/s (>8.0) MV lateral e' 0.11 m/s MV medial e' 0.10 m/s E/e' Ratio: 11.30 (<8.0) MITRAL VALVE: Normal Ranges: MV DT: 148 msec (150-240msec) AORTIC VALVE: Normal Ranges: AoV Vmax: 2.05 m/s (<=1.7m/s) AoV Peak P.8 mmHg (<20mmHg) AoV Mean P.0 mmHg (1.7-11.5mmHg) LVOT Max Zurdo: 1.48 m/s (<=1.1m/s) AoV VTI: 37.40 cm (18-25cm) LVOT VTI: 26.60 cm LVOT Diameter: 1.70 cm (1.8-2.4cm) AoV Area, VTI: 1.61 cm2 (2.5-5.5cm2) AoV Area,Vmax: 1.64 cm2 (2.5-4.5cm2) AoV Dimensionless Index: 0.71 RIGHT VENTRICLE: RV Basal 4.12 cm RV Mid 3.51 cm RV Major 6.1 cm TAPSE: 22.6 mm PULMONIC VALVE: Normal Ranges: PV Accel Time: 95 msec (>120ms) PV Max Zurdo: 1.4 m/s (0.6-0.9m/s) PV Max P.6 mmHg [id number] Stephon Olivares MD Electronically signed on 10/20/2023 at 9:58:47 AM Final XR chest 1 view Result Date: 10/17/2023 Interpreted By: Merlin Tapia, STUDY: XR CHEST 1 VIEW; 10/17/2023 10:25 pm INDICATION: Signs/Symptoms:Weakness. COMPARISON: 02/13/2023 ACCESSION NUMBER(S): [id number] ORDERING CLINICIAN: CARRIE ALEJO FINDINGS: There is elevation of the right hemidiaphragm right basilar airspace opacity which is new from 02/13/2023. Normal heart size. No pneumothorax. Indistinctness of the right costophrenic sulcus may reflect a small pleural effusion. 0.8 cm pulmonary nodular opacity projected over the right upper lung which is similar to 144. Upper abdomen is unremarkable. 1. There is elevation of the right hemidiaphragm right basilar airspace opacity which is new from 02/13/2023. Possible small right pleural effusion. Consider atelectasis or consolidation/pneumonia. 2. Pulmonary nodule as seen on the 02/13/2023 CT. Signed by: Merlin Tapia 10/17/2023 11:06 PM Dictation workstation: [id number] PREEMPT Chemodenervation: Migraine Result Date: 10/02/2023 Jose Alvarez MD 10/02/2023 1:54 PM PREEMPT Chemodenervation: Migraine Date/Time: 10/02/2023 1:45 PM Performed by: Jose Alvarez MD Authorized by: Jose Alvarez MD Comments: Description of Procedure: After discussing the risks and benefits of botulinum toxin, the patient provided informed consent. The patient was placed in the seated position on the examination table. The skin was prepped using alcohol pads. A 30-gauge, 0.5 inch-long needle was used with four 1 cc syringes. Concentration: Two 100 unit vials of botox were diluted into 4 ml of normal saline for a concentration of 50 units/1ml. A total of 155 units of botulinum toxin were used and injected as below (divided equally between left and right unless otherwise indicated): 20 units divided into 4 sites in the frontalis muscles 10 units divided into 2 sites in the card scraper muscles 5 units divided into 1 site in the procerus muscle 40 units divided into 8 sites in the temporalis muscles 30 units divided into 6 sites in the occipitalis muscles 30 units divided into 6 sites in the trapezius muscles 20 units divided into 4 sites in the cervical paraspinal muscles A total of 45 units were discarded as unavoidable waste. The patient tolerated the procedure well and left the clinic without any complications. Assessment/Plan Rhabdomyolysis -Persistent CK elevation in symptomatic patient suggests diagnosis, though level is borderline for inclusion -Hydrate with 0.9% NS at 150 mL/hr and recheck CK level in a.m. -Cause unclear. Patient had thorough evaluation as part of prior hospitalization with pertinent negative/normal HIV, viral hepatitis, strep, influenza, COVID, RSV, TSH, Monospot, LESTER, ESR, SPEP, and AMA. Smooth muscle Ab positive 1:80, CRP elevated at 6.7, and immunoglobulin free light chains increased though ratio preserved. Urinalysis and urine drug abuse screen ordered in ED and pending. Patient takes sertraline but no evidence of serotonin syndrome otherwise. -Add on carboxyhemoglobin, heavy metal screen, ionized calcium, phosphorus, myositis-specific autoantibodies. Repeat ESR and CRP. -Consult nephrology for re-evaluation while hospitalized. -May ultimately need muscle biopsy for further clarification. Leukocytosis -Elevated WBC count is new feature, not previously seen on hospitalization -Given presence of elevated CK level with leukocytosis, check blood cultures x 2 to ensure no occult bacteremia. -Also check urinalysis with reflex -Trend with treatment of underlying condition off antibiotics for now Transaminitis -Likely related to CK elevation -Right upper quadrant ultrasound on prior hospitalization showed fatty liver and cholelithiasis. Viral hepatitis panel unrevealing. -Trend while hospitalized Elevated Troponin -Again likely noncardiac, see evaluation on prior hospitalization -Recheck in a.m. to ensure no dramatic rise -Monitor on telemetry Class III Obesity -Height 154.9 cm and weight listed 107 kg, some component may be related to fluid resuscitation -Recommend follow up with PCP to discuss strategies for weight loss once acute issues resolved. Rony Montiel MD documented in this encounter [facility] Work Phone: 10-24-2023 History of Present illness Narrative Suraj Hawk 48 y.o. female CHIEF COMPLAINT: Headache HISTORY OF PRESENT ILLNESS: Suraj follows on 10/24/2023. She is a 48-year-old with chronic migraine, hormonally related initially though improved after she went off OC post hysterectomy. Topamax tapered and when her headaches returned Qulipta was utilized; her headaches initially improved with Nurtec 75 mg. She was recently charged with rhabdomyolysis believed possibly secondary to phentermine or interaction with other medications. She prefers to stay off Qulipta and utilize Nurtec as she has been on this in the past without difficulty. Age at headache onset:chronic Family history of headache:son Duration/Location of headache:days Frequency of headache:one a month./1 or 2 weeks/1-2 per month but if occur maybe severe and does not have stat dose Aura: none Miss work/activities:++ Triggers:son hit a deer Nausea/Vomiting/Photo/Sono:++ Neuro symptoms associated:dizzy OTC medication frequency:naproxen for knee Prescribed preventive meds: off Topamax, Qulipta not helpful initially- tried and helps, Zoloft Prescribed abortive meds: Eletriptan/stat dose has to stay home, Nurtec has not been able to get while on Qulipta Tosymra Evaluation(scans): Brain MRI 2018 normal Laboratory investigations: 10/21/2023 AST/ALT 173/225 GFR > 90 CO2 28 CK 4423 Previous AST/ALT 06/18/2023 REVIEW OF SYSTEMS: Botox 10/02/2023 10/17/2023 ED myalgias generalized fatigue negative COVID initial troponin 489 chest x-ray consolidation/pneumonia-LFTs initially elevated possible interaction between migraine medication, phentermine and/or psoriasis medication. OARRS: Phentermine 37.5 Sleep:hot flashes black cohash Caffeine: Head trauma: Water consumption:60-80 Missed meals: Exercise:right knee pain-does not wish knee replacement Depression: Zoloft deployed in past/back home Two children ALLERGIES: Allergies Allergen Reactions Nickel Rash Sulfa Antibiotics PAST MEDICAL HISTORY: Past Medical History: Diagnosis Date Migraine SOCIAL HISTORY: Social History Socioeconomic History Marital status: Tobacco Use Smoking status: Never Smokeless tobacco: Never Vaping Use Vaping status: Never Used Substance and Sexual Activity Alcohol use: Not Currently Comment: rarely Drug use: No Sexual activity: Yes Partners: Male control/protection: Hysterectomy Comment: I'm so just my . Other Topics Concern Occupational Exposure No Hobby Hazards No Social Determinants of Health Financial Resource Strain: Low Risk (10/18/2023) Received from [facility] Overall Financial Resource Strain (CARDIA) Difficulty of Paying Living Expenses: Not very hard Transportation Needs: No Transportation Needs (10/18/2023) Received from [facility] PRAPARE - Transportation Lack of Transportation (Medical): No Lack of Transportation (Non-Medical): No Housing Stability: Low Risk (10/18/2023) Received from [facility] Housing Stability Vital Sign Unable to Pay for Housing in the Last Year: No Number of Times Moved in the Last Year: 0 Homeless in the Last Year: No 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 MEDICATIONS PRIOR TO VISIT: Current Outpatient Medications: Albuterol Sulfate (PROAIR HFA IN), Inhale as needed. (Patient not taking: Reported on 10/27/2020), Disp: , Rfl: Atogepant (Qulipta) 60 MG tablet, Take 1 tablet by mouth daily. (Patient not taking: Reported on 10/24/2023), Disp: 30 tablet, Rfl: 6 Botulinum Toxin Type A 200 units Recon Soln, For prevention of chronic migraine, Disp: 1 Each, Rfl: 0 Budesonide-Formoterol Fumarate (SYMBICORT IN), take by inhalation. (Patient not taking: Reported on 10/27/2020), Disp: , Rfl: Coenzyme Q10 (COQ10 PO), Take by mouth., Disp: , Rfl: eletriptan (Relpax) 40 MG tablet, 1 po prn migraine may repeat ONCE in 2 hours if necessary, Disp: 9 tablet, Rfl: 6 Levonorgestrel-Ethinyl Estrad (LILLOW PO), Take by mouth. (Patient not taking: Reported on 10/27/2020), Disp: , Rfl: Loratadine (CLARITIN PO), take by mouth., Disp: , Rfl: Montelukast Sodium (SINGULAIR PO), take by mouth., Disp: , Rfl: naproxen 500 MG tablet, Take 1 tablet by mouth 2 times daily with meals., Disp: , Rfl: Niacin, Antihyperlipidemic, (NIASPAN PO), take by mouth. (Patient not taking: Reported on 10/27/2020), Disp: , Rfl: Ondansetron 4 MG tablet, 1 po q 6 hours prn nausea ( migraine), Disp: 10 tablet, Rfl: 2 Rimegepant Sulfate (Nurtec) 75 MG Tab Dispersible, Take 75 mg by mouth as needed. 2 boxesLot # [id number] ex 11/04 (Patient not taking: Reported on 04/25/2023), Disp: 4 tablet, Rfl: 0 Sertraline HCl (ZOLOFT PO), Take 100 mg by mouth every evening. , Disp: , Rfl: SUMAtriptan (Tosymra) 10 MG/ACT Solution, Sample Given Lot: [id number] Exp: 04/07 X1, Disp: 1 Each, Rfl: 0 PHYSICAL EXAM: Blood pressure 140/76, pulse 107, weight 104.9 kg (231 lb 3.2 oz), SpO2 91%. Body mass index is 43.68 kg/m . OS 5 mm OD 4 mm Speech fluent Ecchymosis forearms noted Heart regular rate and rhythm No carotid bruits Gait stable ASSESSMENT/IMPRESSION: Problem List Items Addressed This Visit Cardiovascular Intractable migraine without aura and without status migrainosus - Primary PLAN: Up to date search regarding Qulipta and interactions with phentermine Nurtec 75 mg every other day Not taking Relpax currently if she resumes we will notify our office She will discuss with Dr. Tomlin - upcoming Botox Follow up 3 months Alexandra Norton DO documented in this encounter [facility] 10-24-2023 Instructions Alexandra Norton DO - 10/24/2023 8:40 AM EDT Eletriptan 40 mg a rescue - call if works and no side effects and I'll send in Nurec 75 mg every other day -write a letter for coverage Follow up 3 months documented in this encounter [facility] 10-23-2023 History of Present illness Narrative Subjective Patient ID: Suraj Hawk is a 48 y.o. female who presents for Follow-up (Hospital discharge Rhabdomyolysis ). [facility] Hospital follow up for admit to [facility] 10/16-12/03 Suraj Hawk is a 48 y.o. female Who presented to the emergency room for a 4 days history of diffuse bodyaches, lightheadedness, dizziness, and hot flashes. On presentation, vital signs grossly within normal limits. Pertinent findings on blood workup; sodium 133, albumin 3.1, ALT 169, AST 192, creatinine kinase 4423 and troponin 489 with repeat of 457. EKG did not show any acute findings. Chest x-ray showed a right basilar airspace opacity. COVID-19, RSV, and mononucleosis all came back negative. Influenza also negative. Patient was given in the emergency room IV fluids and then admitted to the medical service for further investigation and management Cardiology was consulted. Troponin initially 489, but trending down. CK initially 4423 also trending down.Troponin elevation is likely attributable to non-ischemic myocardial injury due to myocardial imbalance in oxygen supply/demand secondary to underlying rhabdomyolysis. Echocardiogram (10/20/2023): Left ventricular ejection fraction is normal, by visual estimate at 60%. Nephrology consulted. She has as stated hypoalbuminemia with hypoproteinemia. She does not have evidence of protein wasting in her urine Protein electrophoresis and immunofixation are still pending. Patient to follow-up with Dr. Fajardo outpatient. Patient's liver enzymes initially were 169 and 192. Liver ultrasound revealed fatty liver and cholelithiasis. Hepatitis panel negative. HIV negative. CRP was elevated at 6.70. However LESTER and anti-smooth muscle were negative. Questionable drug interaction between her migraine medication, phentermine, and or psoriasis medication. Patient has been asked to hold these medications until she follows up with her PCP and specialist. Patient's extremities are quite edematous. She has been given compression sleeves and KASANDRA hose. She has been advised the edema may last several weeks. She has requested to be off work due to the myalgias and edema. I will give her a note for 3 days however she is aware her PCP will have to complete HR forms. 10/23/[address] Fajardo at the end of the month. She still feels very weak. She did have 2 recent medications - phentermine since 07/14/23 and Qulipta for migraines from May. Bimzelx for a few months. There is no interactions known other than Bimzelx decreases level of Qulipta. There is a serotonin syndrome risk with Sertraline and phentermine. She is off of all of those for now. Will keep off of them until she is feeling better. I do not see this as a side effect of any of the medications. But the one I would be most concerned about would the phentermine as it increasing metabolism and susceptibility to dehydration and heat. She is still a bit swollen, achy and very exhausted and weak. Some lightheadedness. No discoloration of urine. No chest pain or shortness of breath. The hot flashes have resolved. Puffy all over still. She did gain 4 and still up 3. As far as psoriasis she had a rash on her face. Review of Systems Objective BP 120/72 (BP Location: Left arm, Patient Position: Sitting) Pulse 89 Wt 107 kg (235 lb) SpO2 91% BMI 44.40 kg/m Physical Exam Vitals reviewed. Constitutional: General: She is not in acute distress. Appearance: Normal appearance. She is obese. HENT: Head: Normocephalic. Right Ear: Tympanic membrane, ear canal and external ear normal. Left Ear: Tympanic membrane, ear canal and external ear normal. Nose: Nose normal. Mouth/Throat: Mouth: Mucous membranes are moist. Pharynx: Oropharynx is clear. Eyes: Extraocular Movements: Extraocular movements intact. Conjunctiva/sclera: Conjunctivae normal. Pupils: Pupils are equal, round, and reactive to light. Neck: Vascular: No carotid bruit. Cardiovascular: Rate and Rhythm: Normal rate and regular rhythm. Pulses: Normal pulses. Heart sounds: Normal heart sounds. No murmur heard. Pulmonary: Effort: Pulmonary effort is normal. No respiratory distress. Breath sounds: Normal breath sounds. Abdominal: General: Abdomen is flat. Bowel sounds are normal. There is no distension. Palpations: Abdomen is soft. There is no mass. Tenderness: There is no abdominal tenderness. Musculoskeletal: Cervical back: Normal range of motion and neck supple. No tenderness. Lymphadenopathy: Cervical: No cervical adenopathy. Skin: General: Skin is warm and dry. Findings: Bruising (arms) present. No rash. Comments: Generalized puffiness still a bit Neurological: General: No focal deficit present. Mental Status: She is alert and oriented to person, place, and time. Psychiatric: Mood and Affect: Mood normal. Thought Content: Thought content normal. Judgment: Judgment normal. Assessment/Plan Diagnoses and all orders for this visit: Non-traumatic rhabdomyolysis - Comprehensive Metabolic Panel; Future - CK; Future - Troponin I, High Sensitivity; Future Migraine without aura and without status migrainosus, not intractable The most likely issue in my opinion is the phentermine so will not resume that. For now not ready to return to work for a couple more weeks. So OWS for with RTW 11/11/23 to be updated on 11/06/23 documented in this encounter [facility] Work Phone: 10-21-2023 Miscellaneous Notes PATIENT: SURAJ HAWK : 1975 ADMIT DATE: 10/17/2023 10:06 PM DISCH DATE: RESPONDING PROVIDER #: [id number] PROVIDER RESPONSE TEXT: Non-ischemic myocardial injury CDI QUERY TEXT: Clarification Instruction: Based on your assessment of the patient and the clinical information, please provide the requested documentation by clicking on the appropriate radio button and enter any additional information if prompted. Question: Is there a diagnosis indicative of the patient elevated Troponins and symptoms When answering this query, please exercise your independent professional judgment. The fact that a question is being asked, does not imply that any particular answer is desired or expected. The patient's clinical indicators include: Clinical Information: 48year old female to ED with just not been feeling well and she states that she has been experiencing hot flashes, lightheadedness and dizziness. She states that she is also been experiencing diffuse pain in both her muscles and joints. Clinical Indicators: 10/17/23 Labs Troponin [id number] Kinase 4423- 10/17/ troponin 424- creatine Kinase 4352. Cardiology consult foe elevated Troponin notes denies chest pain or cardiac symptoms and Troponin elevation is likely attributable to non-ischemic myocardial injury due to myocardial imbalance in oxygen supply/demand secondary to underlying rhabdomyolysis. 10/19/23 progress note documents NSTEMI type II. Discharge summary again notes Troponin elevation is likely attributable to non-ischemic myocardial injury due to myocardial imbalance in oxygen supply/demand secondary to underlying rhabdomyolysis. Treatment: Serial Labs, cardiology consult and ECHO - Left ventricular ejection fraction is normal, by visual estimate at 60%.There are no regional wall motion abnormalities. Risk Factors: Rhabdomyolysis, morbid obesity with BMI 45 and Rhabdomyolysis Options provided: -- Type II AL -- Non-ischemic myocardial injury -- Other - I will add my own diagnosis -- Refer to Clinical Documentation Reviewer Query created by: Dyana Membreno on 10/21/2023 11:44 AM Electronically signed by: ARABELLA PIEDRA 10/21/2023 11:51 AM Problem: Fall/Injury Goal: Be free from injury by end of the shift Outcome: Progressing Problem: Fall/Injury Goal: Verbalize understanding of risk factor reduction measures to prevent injury from fall in the home Outcome: Progressing Associated Problem(s): Rhabdomyolysis -CPK 3381 trending down -Hypoalbuminemia 2.7 -Dr. Fajardo consulted and treating -Awaiting protein electrophoresis and immunofixation -Hepatitis and HIV panel pending -Offered compression for upper extremities patient declined for now. Try elevate when possible. -Add LESTER The patient's goals for the shift include feel better The clinical goals for the shift include muscle pain control Over the shift, the patient continued to have muscle and joint pain but states she is feeling better. Had Echo this morning. The patient's goals for the shift include go home, get better. The clinical goals for the shift include pain control. The patient's goals for the shift include feel better The clinical goals for the shift include pain control Over the shift, the patient had generalized pain and swelling in arms and face. Pt not feeling any better. Tylenol given once this shift The patient's goals for the shift include go home. The clinical goals for the shift include keep hydrated, pain control. documented in this encounter [facility] Work Phone: 10-21-2023 Note Formatting of this n ote might be different from the original. PATIENT: SURAJ HAWK : 1975 ADMIT DATE: 10/17/2023 10:06 PM DISCH DATE: RESPONDING PROVIDER #: [id number] PROVIDER RESPONSE TEXT: Non-ischemic myocardial injury CDI QUERY TEXT: Clarification Instruction: Based on your assessment of the patient and the clinical information, please provide the requested documentation by clicking on the appropriate radio button and enter any additional information if prompted. Question: Is there a diagnosis indicative of the patient elevated Troponins and symptoms When answering this query, please exercise your independent professional judgment. The fact that a question is being asked, does not imply that any particular answer is desired or expected. The patient's clinical indicators include: Clinical Information: 48year old female to ED with just not been feeling well and she states that she has been experiencing hot flashes, lightheadedness and dizziness. She states that she is also been experiencing diffuse pain in both her muscles and joints. Clinical Indicators: 10/17/23 Labs Troponin [id number] Kinase 4423- 10/17/ troponin 424- creatine Kinase 4352. Cardiology consult foe elevated Troponin notes denies chest pain or cardiac symptoms and Troponin elevation is likely attributable to non-ischemic myocardial injury due to myocardial imbalance in oxygen supply/demand secondary to underlying rhabdomyolysis. 10/19/23 progress note documents NSTEMI type II. Discharge summary again notes Troponin elevation is likely attributable to non-ischemic myocardial injury due to myocardial imbalance in oxygen supply/demand secondary to underlying rhabdomyolysis. Treatment: Serial Labs, cardiology consult and ECHO - Left ventricular ejection fraction is normal, by visual estimate at 60%.There are no regional wall motion abnormalities. Risk Factors: Rhabdomyolysis, morbid obesity with BMI 45 and Rhabdomyolysis Options provided: -- Type II AL -- Non-ischemic myocardial injury -- Other - I will add my own diagnosis -- Refer to Clinical Documentation Reviewer Query created by: Dyana Membreno on 10/21/2023 11:44 AM Electronically signed by: ARABELLA PIEDRA 10/21/2023 11:51 AM [facility] Work Phone: 10-21-2023 Plan of care note Problem: Fall/Injury Goal: Be free from injury by end of the shift Outcome: Progressing [facility] 10-21-2023 Nurse Note Discharge Note: 10/21/2023 1131 AVS and pt responsibilities reviewed with pt and copy given. Rhabdomyolysis education reviewed with pt and information sheets given. Pt verbalizes understanding of instructions received, verbalizes understanding of when to seek medical attention, denies any home going or personal care needs. Denies further questions or concerns. Reviewed follow up appts with pt and verbalizes understanding. Ld LEO [facility] 10-21-2023 Nurse Note Discharge Note: 10/21/2023 1131 AVS and pt responsibilities reviewed with pt and copy given. Rhabdomyolysis education reviewed with pt and information sheets given. Pt verbalizes understanding of instructions received, verbalizes understanding of when to seek medical attention, denies any home going or personal care needs. Denies further questions or concerns. Reviewed follow up appts with pt and verbalizes understanding. Ld LEO documented in this encounter [facility] Work Phone: 10-21-2023 Hospital course Narrative Discharge Diagnosis Rhabdomyolysis Issues Requiring Follow-Up Elevated liver enzymes Elevated troponins Edema Discharge Meds Medication List CONTINUE taking these medications azelastine-fluticasone 137-50 mcg/spray nasal spray; Commonly known as: Dymista bimekizumab-bkzx 160 mg/mL auto-injector loratadine 10 mg tablet; Commonly known as: Claritin montelukast 10 mg tablet; Commonly known as: Singulair naproxen 500 mg tablet; Commonly known as: Naprosyn; Take 1 tablet (500 mg) by mouth every 12 hours. phentermine 37.5 mg capsule; Take 1 capsule (37.5 mg) by mouth once daily in the morning. Take before meals. Qulipta 60 mg tablet tablet; Generic drug: atogepant sertraline 100 mg tablet; Commonly known as: Zoloft; Take 1 tablet (100 mg) by mouth once daily. STOP taking these medications predniSONE 20 mg tablet; Commonly known as: Deltasone Test Results Pending At Discharge Pending Labs Order Current Status Extra Urine Henley Tube Collected (10/18/23 0344) LESTER with Reflex to LILLY In process LESTER with Reflex to LILLY In process Anti-smooth muscle antibody, IgG In process Antimitochondrial antibody In process Immunoglobulin free LT chains blood In process Serum Protein Electrophoresis + Immunofixation In process Serum Protein Electrophoresis + Immunofixation In process Urinalysis with Reflex Culture and Microscopic In process Hospital Course Suraj Hawk is a 48 y.o. female Who presented to the emergency room for a 4 days history of diffuse bodyaches, lightheadedness, dizziness, and hot flashes. On presentation, vital signs grossly within normal limits. Pertinent findings on blood workup; sodium 133, albumin 3.1, ALT 169, AST 192, creatinine kinase 4423 and troponin 489 with repeat of 457. EKG did not show any acute findings. Chest x-ray showed a right basilar airspace opacity. COVID-19, RSV, and mononucleosis all came back negative. Influenza also negative. Patient was given in the emergency room IV fluids and then admitted to the medical service for further investigation and management Cardiology was consulted. Troponin initially 489, but trending down. CK initially 4423 also trending down.Troponin elevation is likely attributable to non-ischemic myocardial injury due to myocardial imbalance in oxygen supply/demand secondary to underlying rhabdomyolysis. Echocardiogram (10/20/2023): Left ventricular ejection fraction is normal, by visual estimate at 60%. Nephrology consulted. She has as stated hypoalbuminemia with hypoproteinemia. She does not have evidence of protein wasting in her urine Protein electrophoresis and immunofixation are still pending. Patient to follow-up with Dr. Fajardo outpatient. Patient's liver enzymes initially were 169 and 192. Liver ultrasound revealed fatty liver and cholelithiasis. Hepatitis panel negative. HIV negative. CRP was elevated at 6.70. However LESTER and anti-smooth muscle were negative. Questionable drug interaction between her migraine medication, phentermine, and or psoriasis medication. Patient has been asked to hold these medications until she follows up with her PCP and specialist. Patient's extremities are quite edematous. She has been given compression sleeves and KASANDRA hose. She has been advised the edema may last several weeks. She has requested to be off work due to the myalgias and edema. I will give her a note for 3 days however she is aware her PCP will have to complete HR forms. Patient will be discharged home in stable condition. Pertinent Physical Exam At Time of Discharge Physical Exam Constitutional: Appearance: Normal appearance. HENT: Head: Normocephalic and atraumatic. Mouth: Mucous membranes are moist. Pharynx: Oropharynx is clear. Eyes: Extraocular Movements: Extraocular movements intact. Conjunctiva/sclera: Conjunctivae normal. Pupils: Pupils are equal, round, and reactive to light. Cardiovascular: Rate and Rhythm: Normal rate and regular rhythm. Pulmonary: Effort: Pulmonary effort is normal. Breath sounds: Normal breath sounds. Abdominal: General: Abdomen is flat. Palpations: Abdomen is soft. Musculoskeletal: General: Swelling present. Comments: Bilateral upper and lower extremities Skin: General: Skin is warm and dry. Neurological: General: No focal deficit present. Mental Status: She is alert and oriented to person, place, and time. Psychiatric: Mood and Affect: Mood normal. Behavior: Behavior normal. Outpatient Follow-Up Future Appointments Date Time Provider Department Center 10/23/2023 9:00 AM Bridger Edouard MD [id number] [facility] 11/12/2023 7:30 AM MANI [id number] MAMMO [id number] MANI [place] 12/25/2023 4:00 PM DOROTHEA Dupont [id number] [facility] 10/19/2024 8:30 AM Kingsley Hutchins MD [id number] [place] DOROTHEA Denis documented in this encounter [facility] Work Phone: 10-21-2023 Hospital Discharge instructions DOROTHEA Denis - 10/21/2023 10:51 AM EDT Before restarting your allergy and migraine medications consult your PCP, dry house attendant, and migraine doctor. The following attachments cannot be sent through Care Everywhere.Rhabdomyolysis (Syriac)documented in this encounter [facility] Work Phone: 10-21-2023 History of Present illness Narrative Subjective Data: Patient reports feeling well, no new adverse events overnight. Patient denies any chest pain, shortness of breath, palpitations, dizziness or syncope. Patient is hemodynamically stable. Overnight Events: No Objective Data: Last Recorded Vitals: Vitals: 10/20/23 0749 10/20/23 1535 10/20/23 1900 10/21/23 0756 BP: 133/82 128/76 103/69 103/70 BP Location: Left arm Left arm Left arm Left arm Patient Position: Sitting Sitting Sitting Sitting Pulse: 101 100 101 99 Resp: 20 16 20 Temp: 36.1 C (97 F) 36.6 C (97.9 F) 37.6 C (99.7 F) 36.6 C (97.9 F) TempSrc: Temporal Temporal Temporal Temporal SpO2: 94% 94% 96% 91% Weight: Height: Last Labs: CBC - 10/21/2023: 4:40 AM 6.8 12.2 200 37.4 CMP - 10/21/2023: 4:40 AM 8.4 5.6 173 --- 0.3 _ 2.8 225 76 PTT - No results in last year. _ _ _ TROPHS Date/Time Value Ref Range Status 10/21/2023 04:40 AM 336 0 - 13 ng/L Final Comment: Previous result verified on 10/20/2023 0848 on specimen/case [id number] called with component TRPHS for procedure Troponin I, High Sensitivity with value 409 ng/L. 10/20/2023 08:03 AM 409 0 - 13 ng/L Final 10/18/2023 07:30 AM 424 0 - 13 ng/L Final Comment: Previous result verified on 10/17/2023 2319 on specimen/case [id number] called with component TRPHS for procedure Troponin I, High Sensitivity, Initial with value 489 ng/L. HGBA1C Date/Time Value Ref Range Status 06/18/2023 08:55 AM 5.7 see below % Final LDLCALC Date/Time Value Ref Range Status 04/07/2023 06:18 AM 157 <=99 mg/dL Final Comment: Near Borderline AGE Desirable Optimal High High Very High 0-19 Y 0 - 109 --- 110-129 >/= 130 ---- 20-24 Y 0 - 119 --- 120-159 >/= 160 ---- >24 Y 0 - 99 100-129 130-159 160-189 >/=190 VLDL Date/Time Value Ref Range Status 04/07/2023 06:18 AM 20 0 - 40 mg/dL Final 12/29/2021 08:12 AM 12 0 - 40 mg/dL Final 10/23/2019 08:52 AM 15 0 - 40 mg/dL Final Last I/O: I/O last 3 completed shifts: In: 690 (6.4 mL/kg) [P.O.:690] Out: 400 (3.7 mL/kg) [Urine:400 (0.1 mL/kg/hr)] Weight: 108.2 kg Past Cardiology Tests (Last 3 Years): EKG: ECG 12 lead (Preliminary) ECG 12 Lead 02/13/2023 Echo: Transthoracic Echo (TTE) Complete 10/20/2023 Ejection Fractions: EF Date/Time Value Ref Range Status 10/20/2023 05:24 AM 60 % Cath: No results found for this or any previous visit from the past 1095 days. Stress Test: No results found for this or any previous visit from the past 1095 days. Cardiac Imaging: No results found for this or any previous visit from the past 1095 days. Inpatient Medications: Scheduled medications Medication Dose Route Frequency heparin (porcine) 7,500 Units subcutaneous q8h SUGAR perflutren lipid microspheres 1 mL of dilution intravenous Once in imaging perflutren protein A microsphere 0.5 mL intravenous Once in imaging perflutren protein A microsphere 0.5 mL intravenous Once in imaging sertraline 100 mg oral Nightly sulfur hexafluoride microsphr 2 mL intravenous Once in imaging sulfur hexafluoride microsphr 2 mL intravenous Once in imaging PRN medications Medication acetaminophen magnesium hydroxide ondansetron ODT Or ondansetron traMADol Continuous Medications Medication Dose Last Rate Physical Exam: General: alert, oriented and in no acute distress HEENT: NC/AT; EOMI; PERRLA, external ear is normal Neck: supple; trachea midline; no masses; no JVD Chest: clear breath sounds bilaterally; no wheezing Cardio: regular rhythm, S1S2 normal, no murmurs Abdomen: Soft, non-tender, non-distension, no organomegaly Extremities: no clubbing/cyanosis/edema. Reports pain by touching legs and arms Neuro: Grossly intact Psychiatric: Normal mood and affect Assessment/Plan Mrs. Suraj Hawk is a 48 y.o. former smoker female being consulted by the Cardiology team for elevated troponin. Patient with prior medical history significant for migraines, right knee osteoarthritis, hyperlipidemia and perimenopausal. She presented to ED [facility] on 10/17/2023 complaining of 4 days history of diffuse bodyaches, lightheadedness, dizziness, and hot flashes. She reports ongoing body aches and pain. This has been going on for 4 days. It has been progressively worsening in severity and frequency. Denies any strenuous activity. She denies chest pain, shortness of breath, palpitations, leg edema, fever, chills, orthopnea, paroxysmal nocturnal dyspnea or syncope. Workup in the emergency room showed an acute rhabdomyolysis associated with hyponatremia, elevated troponin 424 - 457 - 489, CK 4423 - 4252, transaminitis and hypoalbuminemia. Chest x-ray showed a right basilar airspace opacity. EKG shows normal sinus rhythm with no signs of acute ischemic changes. Patient has been admitted for clinical compensation. Assessment # Troponin Elevation - Denies chest pain or cardiac symptoms. - Troponin 424 - 457 - 489. - CK 4423 - 4252. - Troponin elevation is likely attributable to non-ischemic myocardial injury due to myocardial imbalance in oxygen supply/demand secondary to underlying rhabdomyolysis. - Echocardiogram (10/20/2023): 1. Left ventricular ejection fraction is normal, by visual estimate at 60%. 2. There is normal right ventricular global systolic function. 3. Mildly enlarged right ventricle. - Would suggest to continue current medical management per primary team. - Hydration. # Hyperlipidemia - Counseled on healthy diet and regular exercise. Thank you for allowing me to participate in the care of this patient. Please reach me out if you have any questions or if you need any clarifications regarding the patient's care. Peripheral IV 10/17/23 20 G Right Antecubital (Active) Site Assessment Clean;Dry;Intact 10/21/23899 Dressing Status Dry;Clean 10/21/23899 Number of days: 4 Code Status: Full Code Justin Olivares MD Cardiology Care Transitions: Patient reviewed in morning care round meeting. ADOD 24 hours. Discharge plan is home with no needs anticipated. Care team to follow for needs. Bren Monge RN/TCC Suraj Hawk is a 48 y.o. female on day 2 of admission presenting with Rhabdomyolysis. Subjective Patient sitting up in chair alert and oriented x 3. Patient complaining of swelling in her hands and arms. Patient was offered compression sleeves but wishes to wait at this time. Advised to keep elevated when possible. Patient denies dark urine, no change in the color of her stools. She continues to have myalgias. She does not have any chest pain, shortness of breath, diaphoresis, or dizziness. Objective Last Recorded Vitals BP 133/82 (BP Location: Left arm, Patient Position: Sitting) Pulse 101 Temp 36.1 C (97 F) (Temporal) Resp 20 Wt 108 kg (238 lb 8.6 oz) SpO2 94% Intake/Output last 3 Shifts: Intake/Output Summary (Last 24 hours) at 10/20/2023 0910 Last data filed at 10/20/2023 0600 Gross per 24 hour Intake 450 ml Output 400 ml Net 50 ml Admission Weight Weight: 105 kg (232 lb) (10/17/23 2204) Daily Weight 10/18/23 : 108 kg (238 lb 8.6 oz) Image Results ECG 12 lead Normal sinus rhythm Low voltage QRS Cannot rule out Anterior infarct , age undetermined Abnormal ECG When compared with ECG of 12-FEB-2023 23:03, Minimal criteria for Anterior infarct are now Present Nonspecific T wave abnormality, worse in Lateral leads Physical Exam Constitutional: Appearance: Normal appearance. HENT: Head: Normocephalic and atraumatic. Mouth: Mucous membranes are moist. Eyes: Extraocular Movements: Extraocular movements intact. Conjunctiva/sclera: Conjunctivae normal. Pupils: Pupils are equal, round, and reactive to light. Cardiovascular: Rate and Rhythm: Normal rate and regular rhythm. Pulmonary: Effort: Pulmonary effort is normal. Breath sounds: Normal breath sounds. Abdominal: General: Abdomen is flat. Palpations: Abdomen is soft. Musculoskeletal: General: Swelling present. Comments: Swelling of bilateral upper extremity Skin: General: Skin is warm and dry. Comments: Positive tattoos Neurological: General: No focal deficit present. Mental Status: She is alert and oriented to person, place, and time. Psychiatric: Mood and Affect: Mood normal. Behavior: Behavior normal. Relevant Results Results for orders placed or performed during the hospital encounter of 10/17/23 (from the past 24 hour(s)) Comprehensive Metabolic Panel Result Value Ref Range Glucose 95 74 - 99 mg/dL Sodium 135 (L) 136 - 145 mmol/L Potassium 3.8 3.5 - 5.3 mmol/L Chloride 105 98 - 107 mmol/L Bicarbonate 25 21 - 32 mmol/L Anion Gap 9 (L) 10 - 20 mmol/L Urea Nitrogen 8 6 - 23 mg/dL Creatinine 0.39 (L) 0.50 - 1.05 mg/dL eGFR >90 >60 mL/min/1.73m*2 Calcium 8.2 (L) 8.6 - 10.3 mg/dL Albumin 2.7 (L) 3.4 - 5.0 g/dL Alkaline Phosphatase 72 33 - 110 U/L Total Protein 5.4 (L) 6.4 - 8.2 g/dL AST 180 (H) 9 - 39 U/L Bilirubin, Total 0.3 0.0 - 1.2 mg/dL ALT 207 (H) 7 - 45 U/L Creatine Kinase Result Value Ref Range Creatine Kinase 3,381 (H) 0 - 215 U/L Lavender Top Result Value Ref Range Extra Tube Hold for add-ons. Transthoracic Echo (TTE) Complete Result Value Ref Range BSA 2.16 m2 Troponin I, High Sensitivity Result Value Ref Range Troponin I, High Sensitivity 409 (HH) 0 - 13 ng/L Assessment/Plan Suraj Hawk is a 48 y.o. female Who presented to the emergency room for a 4 days history of diffuse bodyaches, lightheadedness, dizziness, and hot flashes. On presentation, vital signs grossly within normal limits. Pertinent findings on blood workup; sodium 133, albumin 3.1, ALT 169, AST 192, creatinine kinase 4423 and troponin 489 with repeat of 457. EKG did not show any acute findings. Chest x-ray showed a right basilar airspace opacity. COVID-19, RSV, and mononucleosis all came back negative. Influenza also negative. Patient was given in the emergency room IV fluids and then admitted to the medical service for further investigation and management. Assessment & Plan Rhabdomyolysis -CPK 3381 trending down -Hypoalbuminemia 2.7 -Dr. Fajardo consulted and treating -Awaiting protein electrophoresis and immunofixation -Hepatitis and HIV panel pending -Offered compression for upper extremities patient declined for now. Try elevate when possible. -Add LESTER Elevated troponin -Telemetry reviewed and patient continues in NSR with controlled rates -Patient denies any ACS symptoms -Troponin trend [phone]; will continue to trend troponin -Echo results are pending -Troponin elevation is likely attributable to non-ischemic myocardial injury due to myocardial imbalance in oxygen supply/demand secondary to underlying rhabdomyolysis. Elevated liver enzymes -Hepatitis panel -Ultrasound 06/23/2023 Cholelithiasis, fatty infiltrated liver consider reimaging if numbers do not trend down. -No jaundice no change in the color of urine or stools. DVT prophylaxis heparin SCDs and frequent ambulation This position Home when medically stable DOROTHEA Denis Subjective Data: Patient sitting up in her chair eating breakfast. She reports pain and swelling to her bilateral arms that she feels is not improving. No other complaints voiced. Objective Data: Last Recorded Vitals: Vitals: 10/19/23 0700 10/19/23 1500 10/19/23 2100 10/20/23 0749 BP: 124/70 118/71 135/71 133/82 BP Location: Left arm Left arm Left arm Left arm Patient Position: Lying Lying Lying Sitting Pulse: 100 98 109 101 Resp: 16 16 16 20 Temp: 36.5 C (97.7 F) 37.1 C (98.8 F) 36.1 C (97 F) 36.1 C (97 F) TempSrc: Temporal Temporal Temporal Temporal SpO2: 96% 95% 94% 94% Weight: Height: Last Labs: CBC - 10/19/2023: 4:21 AM 6.9 12.9 180 40.2 CMP - 10/20/2023: 4:19 AM 8.2 5.4 180 --- 0.3 _ 2.7 207 72 PTT - No results in last year. _ _ _ TROPHS Date/Time Value Ref Range Status 10/18/2023 07:30 AM 424 0 - 13 ng/L Final Comment: Previous result verified on 10/17/2023 2319 on specimen/case [id number] called with component [facility] for procedure Troponin I, High Sensitivity, Initial with value 489 ng/L. 10/17/2023 11:26 PM 457 0 - 13 ng/L Final Comment: Previous result verified on 10/17/2023 2319 on specimen/case [id number] called with component [facility] for procedure Troponin I, High Sensitivity, Initial with value 489 ng/L. 10/17/2023 10:32 PM 489 0 - 13 ng/L Final HGBA1C Date/Time Value Ref Range Status 06/18/2023 08:55 AM 5.7 see below % Final LDLCALC Date/Time Value Ref Range Status 04/07/2023 06:18 AM 157 <=99 mg/dL Final Comment: Near Borderline AGE Desirable Optimal High High Very High 0-19 Y 0 - 109 --- 110-129 >/= 130 ---- 20-24 Y 0 - 119 --- 120-159 >/= 160 ---- >24 Y 0 - 99 100-129 130-159 160-189 >/=190 VLDL Date/Time Value Ref Range Status 04/07/2023 06:18 AM 20 0 - 40 mg/dL Final 12/29/2021 08:12 AM 12 0 - 40 mg/dL Final 10/23/2019 08:52 AM 15 0 - 40 mg/dL Final Last I/O: I/O last 3 completed shifts: In: 1890 (17.5 mL/kg) [P.O.:890; I.V.:1000 (9.2 mL/kg)] Out: 400 (3.7 mL/kg) [Urine:400 (0.1 mL/kg/hr)] Weight: 108.2 kg Past Cardiology Tests (Last 3 Years): EKG: ECG 12 lead (Preliminary) ECG 12 Lead 02/13/2023 Echo: No results found for this or any previous visit from the past 1095 days. Ejection Fractions: No results found for: EF Cath: No results found for this or any previous visit from the past 1095 days. Stress Test: No results found for this or any previous visit from the past 1095 days. Cardiac Imaging: No results found for this or any previous visit from the past 1095 days. Inpatient Medications: Scheduled medications Medication Dose Route Frequency heparin (porcine) 7,500 Units subcutaneous q8h [facility] perflutren lipid microspheres 1 mL of dilution intravenous Once in imaging perflutren protein A microsphere 0.5 mL intravenous Once in imaging perflutren protein A microsphere 0.5 mL intravenous Once in imaging sertraline 100 mg oral Nightly sulfur hexafluoride microsphr 2 mL intravenous Once in imaging sulfur hexafluoride microsphr 2 mL intravenous Once in imaging PRN medications Medication acetaminophen magnesium hydroxide ondansetron ODT Or ondansetron traMADol Continuous Medications Medication Dose Last Rate Physical Exam: General: awake, alert and oriented. No acute distress. Skin: Skin is warm, dry and intact without rashes or lesions. HEENT: normocephalic, atraumatic; conjunctivae are clear without exudates or hemorrhage. Sclera is non-icteric. Eyelids are normal in appearance without swelling or lesions. Hearing intact. Nares are patent bilaterally. Moist mucous membranes. Cardiovascular: heart rate and rhythm are normal. No murmurs, gallops, or rubs are auscultated. S1 and S2 are heard and are of normal intensity. No JVD, no carotid bruits Respiratory: bilateral lung sounds clear to auscultations without rales, rhonchi, or wheezes. No accessory muscle use or stridor Musculoskeletal: no deformities Vascular: color, movement, and sensation intact to upper and lower extremities; brisk cap refill; bilateral hands and forearms show +1 edema. peripheral pulses 2+ equal bilaterally; no wounds; no varicosities; hair is distributed evenly on lower extremities Neurological: no focal deficits Psychiatric: appropriate mood and affect; good judgment and insight Assessment/Plan Elevated troponin: -Telemetry reviewed and patient continues in NSR with controlled rates -Patient denies any ACS symptoms -Troponin trend [phone]; will continue to trend troponin -Echo results are pending -Troponin elevation is likely attributable to non-ischemic myocardial injury due to myocardial imbalance in oxygen supply/demand secondary to underlying rhabdomyolysis. -Defer treatment of rhabdomyolysis to primary team Peripheral IV 10/17/23 20 G Right Antecubital (Active) Site Assessment Clean;Dry;Intact 10/20/23699 Dressing Type Transparent 10/20/23699 Line Status Saline locked 10/20/23699 Dressing Status Clean;Dry;Occlusive 10/20/23 07 Number of days: 3 Code Status: Full Code Thank you for allowing me to participate in the care of this patient. Please reach me out if you have any questions or if you need any clarifications regarding the patient's care. DOROTHEA Gates DNP Suraj Hawk is a 48 y.o. female on day 2 of admission presenting with Rhabdomyolysis. Subjective Patient seen and examined at the bedside this morning She is still having some pain laterally in her upper thighs Still has swelling in her arm bilaterally Objective Vitals 24HR Heart Rate: [98-109] Temp: [36.1 C (97 F)-37.1 C (98.8 F)] Resp: [16-20] BP: (118-135)/(71-82) SpO2: [94 %-95 %] Intake/Output last 3 Shifts: Intake/Output Summary (Last 24 hours) at 10/20/2023 0759 Last data filed at 10/20/2023 0600 Gross per 24 hour Intake 690 ml Output 400 ml Net 290 ml Physical Exam Constitutional: Appearance: Normal appearance. HENT: Head: Normocephalic and atraumatic. Right Ear: External ear normal. Left Ear: External ear normal. Nose: Nose normal. Mouth/Throat: Mouth: Mucous membranes are moist. Pharynx: Oropharynx is clear. Eyes: Extraocular Movements: Extraocular movements intact. Conjunctiva/sclera: Conjunctivae normal. Pupils: Pupils are equal, round, and reactive to light. Cardiovascular: Rate and Rhythm: Normal rate and regular rhythm. Pulmonary: Effort: Pulmonary effort is normal. Breath sounds: Normal breath sounds. Abdominal: General: Abdomen is flat. Palpations: Abdomen is soft. Musculoskeletal: General: Swelling present. Comments: Swelling of bilateral upper extremity Skin: General: Skin is warm and dry. Comments: Positive tattoos Neurological: General: No focal deficit present. Mental Status: She is alert and oriented to person, place, and time. Psychiatric: Mood and Affect: Mood normal. Behavior: Behavior normal. Relevant Results Assessment/Plan Assessment & Plan Rhabdomyolysis Elevated CPK Hypoalbuminemia Muscle pain Obesity Migraine headaches History of psoriasis Elevated troponin Plan: We are still waiting for protein electrophoresis and immunofixation. I discussed with her in detail again today. The only thing that I can pinpoint is that in August she and her daughter got tattoos. We will go ahead and send hepatitis and HIV Continue to treat supportively for now She has as stated hypoalbuminemia with hypoproteinemia. She does not have evidence of protein wasting in her urine Will continue to follow and try to give answers Debby Fajardo DO Subjective Data: Patient reports feeling well, no new adverse events overnight. Patient denies any chest pain, shortness of breath, palpitations, dizziness or syncope. Patient is hemodynamically stable. Overnight Events: No Objective Data: Last Recorded Vitals: Vitals: 10/18/23 1456 10/18/23 2050 10/19/23 0700 10/19/23 1500 BP: 140/81 125/79 124/70 118/71 BP Location: Left arm Left arm Left arm Patient Position: Lying Lying Lying Lying Pulse: 108 109 100 98 Resp: 18 16 16 16 Temp: 36.9 C (98.4 F) 36.3 C (97.3 F) 36.5 C (97.7 F) 37.1 C (98.8 F) TempSrc: Temporal Temporal Temporal Temporal SpO2: 96% 97% 96% 95% Weight: Height: Last Labs: CBC - 10/19/2023: 4:21 AM 6.9 12.9 180 40.2 CMP - 10/19/2023: 4:21 AM 7.8 5.2 188 --- 0.3 _ 2.6 177 76 PTT - No results in last year. _ _ _ TROPHS Date/Time Value Ref Range Status 10/18/2023 07:30 AM 424 0 - 13 ng/L Final Comment: Previous result verified on 10/17/2023 2319 on specimen/case [id number] called with component [facility] for procedure Troponin I, High Sensitivity, Initial with value 489 ng/L. 10/17/2023 11:26 PM 457 0 - 13 ng/L Final Comment: Previous result verified on 10/17/2023 2319 on specimen/case [id number] called with component [facility] for procedure Troponin I, High Sensitivity, Initial with value 489 ng/L. 10/17/2023 10:32 PM 489 0 - 13 ng/L Final HGBA1C Date/Time Value Ref Range Status 06/18/2023 08:55 AM 5.7 see below % Final LDLCALC Date/Time Value Ref Range Status 04/07/2023 06:18 AM 157 <=99 mg/dL Final Comment: Near Borderline AGE Desirable Optimal High High Very High 0-19 Y 0 - 109 --- 110-129 >/= 130 ---- 20-24 Y 0 - 119 --- 120-159 >/= 160 ---- >24 Y 0 - 99 100-129 130-159 160-189 >/=190 VLDL Date/Time Value Ref Range Status 04/07/2023 06:18 AM 20 0 - 40 mg/dL Final 12/29/2021 08:12 AM 12 0 - 40 mg/dL Final 10/23/2019 08:52 AM 15 0 - 40 mg/dL Final Last I/O: I/O last 3 completed shifts: In: 6275.8 (58 mL/kg) [P.O.:440; I.V.:5835.8 (53.9 mL/kg)] Out: - (0 mL/kg) Weight: 108.2 kg Past Cardiology Tests (Last 3 Years): EKG: ECG 12 Lead 02/13/2023 Echo: No results found for this or any previous visit from the past 1095 days. Ejection Fractions: No results found for: EF Cath: No results found for this or any previous visit from the past 1095 days. Stress Test: No results found for this or any previous visit from the past 1095 days. Cardiac Imaging: No results found for this or any previous visit from the past 1095 days. Inpatient Medications: Scheduled medications Medication Dose Route Frequency heparin (porcine) 7,500 Units subcutaneous q8h SUGAR sertraline 100 mg oral Nightly PRN medications Medication acetaminophen magnesium hydroxide ondansetron ODT Or ondansetron traMADol Continuous Medications Medication Dose Last Rate Physical Exam: General: alert, oriented and in no acute distress HEENT: NC/AT; EOMI; PERRLA, external ear is normal Neck: supple; trachea midline; no masses; no JVD Chest: clear breath sounds bilaterally; no wheezing Cardio: regular rhythm, S1S2 normal, no murmurs Abdomen: Soft, non-tender, non-distension, no organomegaly Extremities: no clubbing/cyanosis/edema. Reports pain by touching legs and arms Neuro: Grossly intact Psychiatric: Normal mood and affect Assessment/Plan Mrs. Suraj Hawk is a 48 y.o. former smoker female being consulted by the Cardiology team for elevated troponin. Patient with prior medical history significant for migraines, right knee osteoarthritis, hyperlipidemia and perimenopausal. She presented to ED [facility] on 10/17/2023 complaining of 4 days history of diffuse bodyaches, lightheadedness, dizziness, and hot flashes. She reports ongoing body aches and pain. This has been going on for 4 days. It has been progressively worsening in severity and frequency. Denies any strenuous activity. She denies chest pain, shortness of breath, palpitations, leg edema, fever, chills, orthopnea, paroxysmal nocturnal dyspnea or syncope. Workup in the emergency room showed an acute rhabdomyolysis associated with hyponatremia, elevated troponin 424 - 457 - 489, CK 4423 - 4252, transaminitis and hypoalbuminemia. Chest x-ray showed a right basilar airspace opacity. EKG shows normal sinus rhythm with no signs of acute ischemic changes. Patient has been admitted for clinical compensation. Assessment # Troponin Elevation - Denies chest pain or cardiac symptoms. - Troponin 424 - 457 - 489. - CK 4423 - 4252. - Troponin elevation is likely attributable to non-ischemic myocardial injury due to myocardial imbalance in oxygen supply/demand secondary to underlying rhabdomyolysis. - Echocardiogram pending. - Would suggest to continue current medical management per primary team. - Hydration. # Hyperlipidemia - Counseled on healthy diet and regular exercise. Thank you for allowing me to participate in the care of this patient. Please reach me out if you have any questions or if you need any clarifications regarding the patient's care. Peripheral IV 10/17/23 20 G Right Antecubital (Active) Site Assessment Clean;Dry;Intact 10/19/23899 Dressing Status Dry;Clean 10/19/23899 Number of days: 2 Code Status: Full Code Justin Olivares MD Cardiology Suraj Hawk is a 48 y.o. female on day 1 of admission presenting with Rhabdomyolysis. Subjective Patient seen and examined at bedside. She still complains of pain. No fever or no overnight new issues Objective Last Recorded Vitals BP 118/71 (BP Location: Left arm, Patient Position: Lying) Pulse 98 Temp 37.1 C (98.8 F) (Temporal) Resp 16 Wt 108 kg (238 lb 8.6 oz) SpO2 95% Intake/Output last 3 Shifts: Intake/Output Summary (Last 24 hours) at 10/19/2023 1718 Last data filed at 10/19/2023 0855 Gross per 24 hour Intake 1850 ml Output -- Net 1850 ml Admission Weight Weight: 105 kg (232 lb) (10/17/23 2204) Daily Weight 10/18/23 : 108 kg (238 lb 8.6 oz) Image Results XR chest 1 view Narrative: Interpreted By: Merlin Tapia, STUDY: XR CHEST 1 VIEW; 10/17/2023 10:25 pm INDICATION: Signs/Symptoms:Weakness. COMPARISON: 02/13/2023 ACCESSION NUMBER(S): [id number] ORDERING CLINICIAN: CARRIE ALEJO FINDINGS: There is elevation of the right hemidiaphragm right basilar airspace opacity which is new from 02/13/2023. Normal heart size. No pneumothorax. Indistinctness of the right costophrenic sulcus may reflect a small pleural effusion. 0.8 cm pulmonary nodular opacity projected over the right upper lung which is similar to 144. Upper abdomen is unremarkable. Impression: 1. There is elevation of the right hemidiaphragm right basilar airspace opacity which is new from 02/13/2023. Possible small right pleural effusion. Consider atelectasis or consolidation/pneumonia. 2. Pulmonary nodule as seen on the 02/13/2023 CT. Signed by: Merlin Tapia 10/17/2023 11:06 PM Dictation workstation: [id number] Physical Exam Constitutional: Appearance: She is obese. HENT: Head: Normocephalic and atraumatic. Nose: Nose normal. Mouth/Throat: Mouth: Mucous membranes are moist. Eyes: Pupils: Pupils are equal, round, and reactive to light. Cardiovascular: Rate and Rhythm: Normal rate and regular rhythm. Pulses: Normal pulses. Pulmonary: Effort: Pulmonary effort is normal. Abdominal: Palpations: Abdomen is soft. Genitourinary: General: Normal vulva. Musculoskeletal: General: Normal range of motion. Comments: Swollen forearm and tenderness on the lateral aspect of the Skin: General: Skin is dry. Capillary Refill: Capillary refill takes 2 to 3 seconds. Neurological: General: No focal deficit present. Psychiatric: Mood and Affect: Mood normal. Relevant Results Scheduled medications heparin (porcine), 7,500 Units, subcutaneous, q8h SUGAR sertraline, 100 mg, oral, Nightly Continuous medications PRN medications PRN medications: acetaminophen, magnesium hydroxide, ondansetron ODT OR ondansetron, traMADol Assessment/Plan 48-year-old morbidly obese female with a past medical history of migraines, right knee osteoarthritis, hyperlipidemia and who is perimenopausal, who presented to the emergency room for a 4 days history of diffuse bodyaches. Workup in the emergency room showed an acute rhabdomyolysis associated with hyponatremia, elevated troponin, transaminitis and hypoalbuminemia. Chest x-ray showed a right basilar airspace opacity. Assessment Myalgia/proximal myopathy Hyponatremia Hypoalbuminemia Elevated LFT Elevated CPK History of psoriasis NSTEMI type II Plan Continue to monitor symptoms IV fluids stopped yesterday Nephrology suspicious of capillary leak syndrome Will continue to follow with nephrology Follow-up on serum protein electrophoresis and immune fixation Continue to monitor CPK Supportive symptomatic care Pain control DVT prophylaxis: Heparin GI prophylaxis not required Full code Pastora Ramirez MD 10/18/23 6886 Discharge Planning Living Arrangements Spouse/significant other;Children Support Systems Spouse/significant other;Children Assistance Needed none Type of Residence Private residence Number of Stairs to Enter Residence 5 Number of Stairs Within Residence 0 Do you have animals or pets at home? Yes Type of Animals or Pets dog and cat Who is requesting discharge planning? Provider Home or Post Acute Services None Expected Discharge Disposition Home Does the patient need discharge transport arranged? No SW met with patient and introduced self and explained our role in the discharge process. Confirmed her address and insurance. She does live with her and kids in a 2 story home. She is independent at home and anticipates no needs at discharge. Plan is for patient to return home when medically ready no needs anticipated documented in this encounter [facility] Work Phone: 10-20-2023 Plan of care note Problem: Fall/Injury Goal: Verbalize understanding of risk factor reduction measures to prevent injury from fall in the home Outcome: Progressing [facility] Work Phone: 10-20-2023 Evaluation + Plan note Associated Problem(s): Rhabdomyolysis -CPK 3381 trending down -Hypoalbuminemia 2.7 -Dr. Fajardo consulted and treating -Awaiting protein electrophoresis and immunofixation -Hepatitis and HIV panel pending -Offered compression for upper extremities patient declined for now. Try elevate when possible. -Add LESTER [facility] Work Phone: 10-20-2023 Plan of care note The patient's goals for the shift include feel better The clinical goals for the shift include muscle pain control Over the shift, the patient continued to have muscle and joint pain but states she is feeling better. Had Echo this morning. [facility] 10-19-2023 Plan of care note The patient's goals for the shift include go home, get better. The clinical goals for the shift include pain control. [facility] 10-19-2023 Consult note Formatting of th is note is different from the original. Reason For Consult Increased CPK History Of Present Illness Suraj Hawk is a 48 y.o. female presenting with leg pain. She presented to the emergency room due to new and pretty acute onset of leg pain that was in her upper thighs and her hip area. She states that this progressively got worse for her. This started on Friday she went to work Friday but continued to have more and more pain. She now has swelling in her upper extremities after treatment with IV fluids She has never had this before She denies nicotine or alcohol use. She denies issues with any autoimmune diseases No changes in her medications recently She is feeling much better at this time Past Medical History She has a past medical history of Allergic (?), Arthritis (01/2022), Encounter for delivery without indication ([facility]), Encounter for gynecological examination (general) (routine) without abnormal findings, Encounter for gynecological examination (general) (routine) without abnormal findings (09/14/2019), Headache (Maybe 10 years ago), Hypercholesteremia, Hypoglycemia, Migraine (Years ago), Other conditions influencing health status, Personal history of other complications of , childbirth and the puerperium, Personal history of other malignant neoplasm of skin, Personal history of other medical treatment, and Psoriasis. Surgical History She has a past surgical history that includes Other surgical history (02/18/2019); Other surgical history (07/01/2019); Other surgical history (07/01/2019); Other surgical history (07/01/2019); Other surgical history (09/17/2021); section, low transverse (12/04/2003 and 07/05/2007); Endometrial ablation (June 2017 and 2017); Sinus surgery (?); Tubal ligation (June 2017); [place] tooth extraction (?); Total abdominal hysterectomy (07/02/2018); and Endometrial biopsy (05/20/2017). Social History She reports that she has quit smoking. Her smoking use included cigarettes. She has never used smokeless tobacco. She reports that she does not currently use alcohol. She reports that she does not use drugs. Family History Family History Problem Relation Name Age of Onset Arthritis Mother Brittnee Irritable bowel syndrome Mother Brittnee COPD Father Golden Heart disease Father Golden Cancer Father Golden Breast cancer Paternal Grandmother [place] Allergies Sulfa (sulfonamide antibiotics) and Nickel Review of Systems A full 10 point review of systems was obtained is negative except HPI as above Physical Exam Physical Exam Constitutional: Appearance: Normal appearance. She is obese. HENT: Head: Normocephalic and atraumatic. Right Ear: External ear normal. Left Ear: External ear normal. Nose: Nose normal. Mouth/Throat: Mouth: Mucous membranes are moist. Pharynx: Oropharynx is clear. Eyes: Extraocular Movements: Extraocular movements intact. Conjunctiva/sclera: Conjunctivae normal. Pupils: Pupils are equal, round, and reactive to light. Cardiovascular: Rate and Rhythm: Normal rate and regular rhythm. Pulmonary: Effort: Pulmonary effort is normal. Breath sounds: Normal breath sounds. Abdominal: General: Abdomen is flat. Palpations: Abdomen is soft. Musculoskeletal: General: Swelling present. Comments: Bilateral upper extremities have swelling Skin: General: Skin is warm and dry. Neurological: General: No focal deficit present. Mental Status: She is alert and oriented to person, place, and time. Psychiatric: Mood and Affect: Mood normal. Behavior: Behavior normal. I&O 24HR Intake/Output Summary (Last 24 hours) at 10/19/2023 0730 Last data filed at 10/19/2023 0230 Gross per 24 hour Intake 6035.84 ml Output -- Net 6035.84 ml Vitals 24HR Heart Rate: [100-109] Temp: [36.3 C (97.3 F)-37.2 C (98.9 F)] Resp: [16-18] BP: (118-140)/(65-81) SpO2: [96 %-97 %] Scheduled medications heparin (porcine), 7,500 Units, subcutaneous, q8h SUGAR sertraline, 100 mg, oral, Nightly Continuous medications PRN medications PRN medications: acetaminophen, magnesium hydroxide, ondansetron ODT OR ondansetron, traMADol Relevant Results Results reviewed Assessment/Plan Elevated CPK Hypoalbuminemia Muscle pain Obesity Migraine headaches History of psoriasis Elevated troponin Plan: At this time she is starting to get evidence of edema of her upper extremities with swelling. We will go ahead and stop her IV fluids Her CPK is improving however she is getting quite edematous In discussion with her with her history it does not appear that this is a drug or toxin induced issue. No new medications no alcohol or nicotine. She does have hypoalbuminemia. There can be a very rare capillary leak syndrome with hypoalbuminemia that can cause a rhabdo like picture. We will send serum protein electrophoresis and immunofixation with free light chains Continue to follow CPK level closely Troponin is elevated as well but seems to be decreasing Continue supportive measures otherwise as she is on Thanks for the consult Assessment & Plan Rhabdomyolysis Debby Fajardo DO [facility] Work Phone: 10-19-2023 Consult note Formatting of th is note is different from the original. Reason For Consult Increased CPK History Of Present Illness Suraj Hawk is a 48 y.o. female presenting with leg pain. She presented to the emergency room due to new and pretty acute onset of leg pain that was in her upper thighs and her hip area. She states that this progressively got worse for her. This started on Friday she went to work Friday but continued to have more and more pain. She now has swelling in her upper extremities after treatment with IV fluids She has never had this before She denies nicotine or alcohol use. She denies issues with any autoimmune diseases No changes in her medications recently She is feeling much better at this time Past Medical History She has a past medical history of Allergic (?), Arthritis (01/2022), Encounter for delivery without indication ([facility]), Encounter for gynecological examination (general) (routine) without abnormal findings, Encounter for gynecological examination (general) (routine) without abnormal findings (09/14/2019), Headache (Maybe 10 years ago), Hypercholesteremia, Hypoglycemia, Migraine (Years ago), Other conditions influencing health status, Personal history of other complications of , childbirth and the puerperium, Personal history of other malignant neoplasm of skin, Personal history of other medical treatment, and Psoriasis. Surgical History She has a past surgical history that includes Other surgical history (02/18/2019); Other surgical history (07/01/2019); Other surgical history (07/01/2019); Other surgical history (07/01/2019); Other surgical history (09/17/2021); section, low transverse (12/04/2003 and 07/05/2007); Endometrial ablation (June 2017 and 2017); Sinus surgery (?); Tubal ligation (June 2017); [place] tooth extraction (?); Total abdominal hysterectomy (07/02/2018); and Endometrial biopsy (05/20/2017). Social History She reports that she has quit smoking. Her smoking use included cigarettes. She has never used smokeless tobacco. She reports that she does not currently use alcohol. She reports that she does not use drugs. Family History Family History Problem Relation Name Age of Onset Arthritis Mother Brittnee Irritable bowel syndrome Mother Brittnee COPD Father Golden Heart disease Father Golden Cancer Father Golden Breast cancer Paternal Grandmother [place] Allergies Sulfa (sulfonamide antibiotics) and Nickel Review of Systems A full 10 point review of systems was obtained is negative except HPI as above Physical Exam Physical Exam Constitutional: Appearance: Normal appearance. She is obese. HENT: Head: Normocephalic and atraumatic. Right Ear: External ear normal. Left Ear: External ear normal. Nose: Nose normal. Mouth/Throat: Mouth: Mucous membranes are moist. Pharynx: Oropharynx is clear. Eyes: Extraocular Movements: Extraocular movements intact. Conjunctiva/sclera: Conjunctivae normal. Pupils: Pupils are equal, round, and reactive to light. Cardiovascular: Rate and Rhythm: Normal rate and regular rhythm. Pulmonary: Effort: Pulmonary effort is normal. Breath sounds: Normal breath sounds. Abdominal: General: Abdomen is flat. Palpations: Abdomen is soft. Musculoskeletal: General: Swelling present. Comments: Bilateral upper extremities have swelling Skin: General: Skin is warm and dry. Neurological: General: No focal deficit present. Mental Status: She is alert and oriented to person, place, and time. Psychiatric: Mood and Affect: Mood normal. Behavior: Behavior normal. I&O 24HR Intake/Output Summary (Last 24 hours) at 10/19/2023 0730 Last data filed at 10/19/2023 0230 Gross per 24 hour Intake 6035.84 ml Output -- Net 6035.84 ml Vitals 24HR Heart Rate: [100-109] Temp: [36.3 C (97.3 F)-37.2 C (98.9 F)] Resp: [16-18] BP: (118-140)/(65-81) SpO2: [96 %-97 %] Scheduled medications heparin (porcine), 7,500 Units, subcutaneous, q8h SUGRA sertraline, 100 mg, oral, Nightly Continuous medications PRN medications PRN medications: acetaminophen, magnesium hydroxide, ondansetron ODT OR ondansetron, traMADol Relevant Results Results reviewed Assessment/Plan Elevated CPK Hypoalbuminemia Muscle pain Obesity Migraine headaches History of psoriasis Elevated troponin Plan: At this time she is starting to get evidence of edema of her upper extremities with swelling. We will go ahead and stop her IV fluids Her CPK is improving however she is getting quite edematous In discussion with her with her history it does not appear that this is a drug or toxin induced issue. No new medications no alcohol or nicotine. She does have hypoalbuminemia. There can be a very rare capillary leak syndrome with hypoalbuminemia that can cause a rhabdo like picture. We will send serum protein electrophoresis and immunofixation with free light chains Continue to follow CPK level closely Troponin is elevated as well but seems to be decreasing Continue supportive measures otherwise as she is on Thanks for the consult Assessment & Plan Rhabdomyolysis Debby Fajardo DO Associated Order(s): Inpatient consult to Cardiology Inpatient consult to Cardiology Consult performed by: Justin Olivares MD Consult ordered by: Keena Guerra MD Reason for consult: elevated troponin History Of Present Illness: Mrs. Suraj Hawk is a 48 y.o. former smoker female being consulted by the Cardiology team for elevated troponin. Patient with prior medical history significant for migraines, right knee osteoarthritis, hyperlipidemia and perimenopausal. She presented to ED [facility] on 10/17/2023 complaining of 4 days history of diffuse bodyaches, lightheadedness, dizziness, and hot flashes. She reports ongoing body aches and pain. This has been going on for 4 days. It has been progressively worsening in severity and frequency. Denies any strenuous activity. She denies chest pain, shortness of breath, palpitations, leg edema, fever, chills, orthopnea, paroxysmal nocturnal dyspnea or syncope. Workup in the emergency room showed an acute rhabdomyolysis associated with hyponatremia, elevated troponin 424 - 457 - 489, CK 4423 - 4252, transaminitis and hypoalbuminemia. Chest x-ray showed a right basilar airspace opacity. EKG shows normal sinus rhythm with no signs of acute ischemic changes. Patient has been admitted for clinical compensation. Last Recorded Vitals: Vitals: 10/18/23 0700 10/18/23 1100 10/18/23 1419 10/18/23 1456 BP: 143/75 118/65 140/81 BP Location: Left arm Left arm Left arm Patient Position: Lying Lying Lying Pulse: 106 107 108 Resp: 16 16 18 Temp: 36.1 C (97 F) 36.6 C (97.9 F) 37.2 C (98.9 F) 36.9 C (98.4 F) TempSrc: Temporal Temporal Temporal SpO2: 93% 97% 96% Weight: Height: Last Labs: CBC - 10/17/2023: 10:32 PM 7.3 13.8 206 42.2 CMP - 10/18/2023: 7:30 AM 8.0 5.6 183 --- 0.4 _ 3.0 171 93 PTT - No results in last year. _ _ _ Troponin I, High Sensitivity Date/Time Value Ref Range Status 10/18/2023 07:30 AM 424 (HH) 0 - 13 ng/L Final Comment: Previous result verified on 10/17/[id number] on specimen/case [id number] called with component TRPHS for procedure Troponin I, High Sensitivity, Initial with value 489 ng/L. 10/17/2023 11:26 PM 457 (HH) 0 - 13 ng/L Final Comment: Previous result verified on 10/17/[id number] on specimen/case [id number] called with component TRPHS for procedure Troponin I, High Sensitivity, Initial with value 489 ng/L. 10/17/2023 10:32 PM 489 (HH) 0 - 13 ng/L Final Hemoglobin A1C Date/Time Value Ref Range Status 06/18/2023 08:55 AM 5.7 (H) see below % Final LDL Calculated Date/Time Value Ref Range Status 04/07/2023 06:18 AM 157 (H) <=99 mg/dL Final Comment: Near Borderline AGE Desirable Optimal High High Very High 0-19 Y 0 - 109 --- 110-129 >/= 130 ---- 20-24 Y 0 - 119 --- 120-159 >/= 160 ---- >24 Y 0 - 99 100-129 130-159 160-189 >/=190 VLDL Date/Time Value Ref Range Status 04/07/2023 06:18 AM 20 0 - 40 mg/dL Final 12/29/2021 08:12 AM 12 0 - 40 mg/dL Final 10/23/2019 08:52 AM 15 0 - 40 mg/dL Final Last I/O: I/O last 3 completed shifts: In: 646.1 (6 mL/kg) [P.O.:80; IV Piggyback:566.1] Out: - (0 mL/kg) Weight: 108.2 kg Past Cardiology Tests (Last 3 Years): EKG: ECG 12 Lead 02/13/2023 Echo: No results found for this or any previous visit from the past 1095 days. Ejection Fractions: No results found for: EF Cath: No results found for this or any previous visit from the past 1095 days. Stress Test: No results found for this or any previous visit from the past 1095 days. Cardiac Imaging: No results found for this or any previous visit from the past 1095 days. Past Medical History: She has a past medical history of Allergic (?), Arthritis (01/2022), Encounter for delivery without indication ([facility]), Encounter for gynecological examination (general) (routine) without abnormal findings, Encounter for gynecological examination (general) (routine) without abnormal findings (09/14/2019), Headache (Maybe 10 years ago), Hypercholesteremia, Hypoglycemia, Migraine (Years ago), Other conditions influencing health status, Personal history of other complications of , childbirth and the puerperium, Personal history of other malignant neoplasm of skin, Personal history of other medical treatment, and Psoriasis. Past Surgical History: She has a past surgical history that includes Other surgical history (02/18/2019); Other surgical history (07/01/2019); Other surgical history (07/01/2019); Other surgical history (07/01/2019); Other surgical history (09/17/2021); section, low transverse (12/04/2003 and 07/05/2007); Endometrial ablation (June 2017 and 2017); Sinus surgery (?); Tubal ligation (June 2017); [place] tooth extraction (?); Total abdominal hysterectomy (07/02/2018); and Endometrial biopsy (05/20/2017). Social History: She reports that she has quit smoking. Her smoking use included cigarettes. She has never used smokeless tobacco. She reports that she does not currently use alcohol. She reports that she does not use drugs. Family History: Family History Problem Relation Name Age of Onset Arthritis Mother Brittnee Irritable bowel syndrome Mother Brittnee COPD Father Golden Heart disease Father Golden Cancer Father Golden Breast cancer Paternal Grandmother [place] Allergies: Sulfa (sulfonamide antibiotics) and Nickel Inpatient Medications: Scheduled medications Medication Dose Route Frequency heparin (porcine) 7,500 Units subcutaneous q8h SUGAR sertraline 100 mg oral Nightly PRN medications Medication acetaminophen magnesium hydroxide ondansetron ODT Or ondansetron traMADol Continuous Medications Medication Dose Last Rate sodium chloride 0.9% 150 mL/hr 150 mL/hr (10/18/23 1544) Outpatient Medications: Current Outpatient Medications Medication Instructions azelastine-fluticasone (Dymista) 137-50 mcg/spray nasal spray Administer 1 spray into each nostril 2 times a day as needed for rhinitis. bimekizumab-bkzx 320 mg, subcutaneous, Every 8 weeks, Last had 3-4 weeks ago loratadine (CLARITIN) 10 mg, oral, Daily montelukast (SINGULAIR) 10 mg, oral, Nightly naproxen (NAPROSYN) 500 mg, oral, Every 12 hours phentermine 37.5 mg, oral, Daily before breakfast predniSONE (Deltasone) 20 mg tablet Take 2 tablets once daily x 5 days. Take early in your day. Qulipta 60 mg, Daily sertraline (ZOLOFT) 100 mg, oral, Daily Physical Exam: General: alert, oriented and in no acute distress HEENT: NC/AT; EOMI; PERRLA, external ear is normal Neck: supple; trachea midline; no masses; no JVD Chest: clear breath sounds bilaterally; no wheezing Cardio: regular rhythm, S1S2 normal, no murmurs Abdomen: Soft, non-tender, non-distension, no organomegaly Extremities: no clubbing/cyanosis/edema. Reports pain by touching legs and arms Neuro: Grossly intact Psychiatric: Normal mood and affect Assessment/Plan Mrs. Suraj Hawk is a 48 y.o. former smoker female being consulted by the Cardiology team for elevated troponin. Patient with prior medical history significant for migraines, right knee osteoarthritis, hyperlipidemia and perimenopausal. She presented to ED [facility] on 10/17/2023 complaining of 4 days history of diffuse bodyaches, lightheadedness, dizziness, and hot flashes. She reports ongoing body aches and pain. This has been going on for 4 days. It has been progressively worsening in severity and frequency. Denies any strenuous activity. She denies chest pain, shortness of breath, palpitations, leg edema, fever, chills, orthopnea, paroxysmal nocturnal dyspnea or syncope. Workup in the emergency room showed an acute rhabdomyolysis associated with hyponatremia, elevated troponin 424 - 457 - 489, CK 4423 - 4252, transaminitis and hypoalbuminemia. Chest x-ray showed a right basilar airspace opacity. EKG shows normal sinus rhythm with no signs of acute ischemic changes. Patient has been admitted for clinical compensation. Assessment # Troponin Elevation - Denies chest pain or cardiac symptoms. - Troponin 424 - 457 - 489. - CK 4423 - 4252. - Troponin elevation is likely attributable to non-ischemic myocardial injury due to myocardial imbalance in oxygen supply/demand secondary to underlying rhabdomyolysis. - Would suggest echocardiogram. - Would suggest to continue current medical management per primary team. - Hydration. Thank you for allowing me to participate in the care of this patient. Please reach me out if you have any questions or if you need any clarifications regarding the patient's care. Peripheral IV 10/17/23 20 G Right Antecubital (Active) Site Assessment Clean;Dry;Intact 10/18/23899 Dressing Status Clean;Dry;Occlusive 10/18/23899 Number of days: 1 Code Status: Full Code Justin Olivares MD Cardiology documented in this encounter [facility] Work Phone: 10-19-2023 Plan of care note The patient's goals for the shift include feel better The clinical goals for the shift include pain control Over the shift, the patient had generalized pain and swelling in arms and face. Pt not feeling any better. Tylenol given once this shift [facility] Work Phone: 10-18-2023 Consult note Associated Order (s): Inpatient consult to Cardiology Inpatient consult to Cardiology Consult performed by: Justin Olivares MD Consult ordered by: Keena Guerra MD Reason for consult: elevated troponin History Of Present Illness: Mrs. Suraj Hawk is a 48 y.o. former smoker female being consulted by the Cardiology team for elevated troponin. Patient with prior medical history significant for migraines, right knee osteoarthritis, hyperlipidemia and perimenopausal. She presented to ED [facility] on 10/17/2023 complaining of 4 days history of diffuse bodyaches, lightheadedness, dizziness, and hot flashes. She reports ongoing body aches and pain. This has been going on for 4 days. It has been progressively worsening in severity and frequency. Denies any strenuous activity. She denies chest pain, shortness of breath, palpitations, leg edema, fever, chills, orthopnea, paroxysmal nocturnal dyspnea or syncope. Workup in the emergency room showed an acute rhabdomyolysis associated with hyponatremia, elevated troponin 424 - 457 - 489, CK 4423 - 4252, transaminitis and hypoalbuminemia. Chest x-ray showed a right basilar airspace opacity. EKG shows normal sinus rhythm with no signs of acute ischemic changes. Patient has been admitted for clinical compensation. Last Recorded Vitals: Vitals: 10/18/23 0700 10/18/23 1100 10/18/23 1419 10/18/23 1456 BP: 143/75 118/65 140/81 BP Location: Left arm Left arm Left arm Patient Position: Lying Lying Lying Pulse: 106 107 108 Resp: 16 16 18 Temp: 36.1 C (97 F) 36.6 C (97.9 F) 37.2 C (98.9 F) 36.9 C (98.4 F) TempSrc: Temporal Temporal Temporal SpO2: 93% 97% 96% Weight: Height: Last Labs: CBC - 10/17/2023: 10:32 PM 7.3 13.8 206 42.2 CMP - 10/18/2023: 7:30 AM 8.0 5.6 183 --- 0.4 _ 3.0 171 93 PTT - No results in last year. _ _ _ Troponin I, High Sensitivity Date/Time Value Ref Range Status 10/18/2023 07:30 AM 424 (HH) 0 - 13 ng/L Final Comment: Previous result verified on 10/17/[id number] on specimen/case [id number] called with component TRPHS for procedure Troponin I, High Sensitivity, Initial with value 489 ng/L. 10/17/2023 11:26 PM 457 (HH) 0 - 13 ng/L Final Comment: Previous result verified on 10/17/[id number] on specimen/case [id number] called with component TRPHS for procedure Troponin I, High Sensitivity, Initial with value 489 ng/L. 10/17/2023 10:32 PM 489 (HH) 0 - 13 ng/L Final Hemoglobin A1C Date/Time Value Ref Range Status 06/18/2023 08:55 AM 5.7 (H) see below % Final LDL Calculated Date/Time Value Ref Range Status 04/07/2023 06:18 AM 157 (H) <=99 mg/dL Final Comment: Near Borderline AGE Desirable Optimal High High Very High 0-19 Y 0 - 109 --- 110-129 >/= 130 ---- 20-24 Y 0 - 119 --- 120-159 >/= 160 ---- >24 Y 0 - 99 100-129 130-159 160-189 >/=190 VLDL Date/Time Value Ref Range Status 04/07/2023 06:18 AM 20 0 - 40 mg/dL Final 12/29/2021 08:12 AM 12 0 - 40 mg/dL Final 10/23/2019 08:52 AM 15 0 - 40 mg/dL Final Last I/O: I/O last 3 completed shifts: In: 646.1 (6 mL/kg) [P.O.:80; IV Piggyback:566.1] Out: - (0 mL/kg) Weight: 108.2 kg Past Cardiology Tests (Last 3 Years): EKG: ECG 12 Lead 02/13/2023 Echo: No results found for this or any previous visit from the past 1095 days. Ejection Fractions: No results found for: EF Cath: No results found for this or any previous visit from the past 1095 days. Stress Test: No results found for this or any previous visit from the past 1095 days. Cardiac Imaging: No results found for this or any previous visit from the past 1095 days. Past Medical History: She has a past medical history of Allergic (?), Arthritis (01/2022), Encounter for delivery without indication ([facility]), Encounter for gynecological examination (general) (routine) without abnormal findings, Encounter for gynecological examination (general) (routine) without abnormal findings (09/14/2019), Headache (Maybe 10 years ago), Hypercholesteremia, Hypoglycemia, Migraine (Years ago), Other conditions influencing health status, Personal history of other complications of , childbirth and the puerperium, Personal history of other malignant neoplasm of skin, Personal history of other medical treatment, and Psoriasis. Past Surgical History: She has a past surgical history that includes Other surgical history (02/18/2019); Other surgical history (07/01/2019); Other surgical history (07/01/2019); Other surgical history (07/01/2019); Other surgical history (09/17/2021); section, low transverse (12/04/2003 and 07/05/2007); Endometrial ablation (June 2017 and 2017); Sinus surgery (?); Tubal ligation (June 2017); [place] tooth extraction (?); Total abdominal hysterectomy (07/02/2018); and Endometrial biopsy (05/20/2017). Social History: She reports that she has quit smoking. Her smoking use included cigarettes. She has never used smokeless tobacco. She reports that she does not currently use alcohol. She reports that she does not use drugs. Family History: Family History Problem Relation Name Age of Onset Arthritis Mother Brittnee Irritable bowel syndrome Mother Brittnee COPD Father Golden Heart disease Father Golden Cancer Father Golden Breast cancer Paternal Grandmother [place] Allergies: Sulfa (sulfonamide antibiotics) and Nickel Inpatient Medications: Scheduled medications Medication Dose Route Frequency heparin (porcine) 7,500 Units subcutaneous q8h SUGAR sertraline 100 mg oral Nightly PRN medications Medication acetaminophen magnesium hydroxide ondansetron ODT Or ondansetron traMADol Continuous Medications Medication Dose Last Rate sodium chloride 0.9% 150 mL/hr 150 mL/hr (10/18/23 1544) Outpatient Medications: Current Outpatient Medications Medication Instructions azelastine-fluticasone (Dymista) 137-50 mcg/spray nasal spray Administer 1 spray into each nostril 2 times a day as needed for rhinitis. bimekizumab-bkzx 320 mg, subcutaneous, Every 8 weeks, Last had 3-4 weeks ago loratadine (CLARITIN) 10 mg, oral, Daily montelukast (SINGULAIR) 10 mg, oral, Nightly naproxen (NAPROSYN) 500 mg, oral, Every 12 hours phentermine 37.5 mg, oral, Daily before breakfast predniSONE (Deltasone) 20 mg tablet Take 2 tablets once daily x 5 days. Take early in your day. Qulipta 60 mg, Daily sertraline (ZOLOFT) 100 mg, oral, Daily Physical Exam: General: alert, oriented and in no acute distress HEENT: NC/AT; EOMI; PERRLA, external ear is normal Neck: supple; trachea midline; no masses; no JVD Chest: clear breath sounds bilaterally; no wheezing Cardio: regular rhythm, S1S2 normal, no murmurs Abdomen: Soft, non-tender, non-distension, no organomegaly Extremities: no clubbing/cyanosis/edema. Reports pain by touching legs and arms Neuro: Grossly intact Psychiatric: Normal mood and affect Assessment/Plan Mrs. Suraj Hawk is a 48 y.o. former smoker female being consulted by the Cardiology team for elevated troponin. Patient with prior medical history significant for migraines, right knee osteoarthritis, hyperlipidemia and perimenopausal. She presented to ED [facility] on 10/17/2023 complaining of 4 days history of diffuse bodyaches, lightheadedness, dizziness, and hot flashes. She reports ongoing body aches and pain. This has been going on for 4 days. It has been progressively worsening in severity and frequency. Denies any strenuous activity. She denies chest pain, shortness of breath, palpitations, leg edema, fever, chills, orthopnea, paroxysmal nocturnal dyspnea or syncope. Workup in the emergency room showed an acute rhabdomyolysis associated with hyponatremia, elevated troponin 424 - 457 - 489, CK 4423 - 4252, transaminitis and hypoalbuminemia. Chest x-ray showed a right basilar airspace opacity. EKG shows normal sinus rhythm with no signs of acute ischemic changes. Patient has been admitted for clinical compensation. Assessment # Troponin Elevation - Denies chest pain or cardiac symptoms. - Troponin 424 - 457 - 489. - CK 4423 - 4252. - Troponin elevation is likely attributable to non-ischemic myocardial injury due to myocardial imbalance in oxygen supply/demand secondary to underlying rhabdomyolysis. - Would suggest echocardiogram. - Would suggest to continue current medical management per primary team. - Hydration. Thank you for allowing me to participate in the care of this patient. Please reach me out if you have any questions or if you need any clarifications regarding the patient's care. Peripheral IV 10/17/23 20 G Right Antecubital (Active) Site Assessment Clean;Dry;Intact 10/18/23899 Dressing Status Clean;Dry;Occlusive 10/18/23899 Number of days: 1 Code Status: Full Code Justin Olivares MD Cardiology [facility] Work Phone: 10-18-2023 History and physical note History Of Present Illness Suraj Hawk is a 48 y.o. female Who presented to the emergency room for a 4 days history of diffuse bodyaches, lightheadedness, dizziness, and hot flashes. On presentation, vital signs grossly within normal limits. Pertinent findings on blood workup; sodium 133, albumin 3.1, ALT 169, AST 192, creatinine kinase 4423 and troponin 489 with repeat of 457. EKG did not show any acute findings. Chest x-ray showed a right basilar airspace opacity. COVID-19, RSV, and mononucleosis all came back negative. Influenza also negative. Patient was given in the emergency room IV fluids and then admitted to the medical service for further investigation and management. Upon encounter, patient resting comfortably in her bed. She reports ongoing body aches and pain. This has been going on for 4 days. It has been progressively worsening in severity and frequency. Denies any strenuous activity. No seizure activity. No falls. Denies having any other flulike symptoms. No chest pain. No shortness of breath. ROS 10 systems were reviewed and were negative except for those noted in the history of present illness. Past Medical History Past Medical History: Diagnosis Date Allergic ? Arthritis 01/2022 Encounter for delivery without indication ([facility]) Delivery of by section Encounter for gynecological examination (general) (routine) without abnormal findings Pap test, as part of routine gynecological examination Encounter for gynecological examination (general) (routine) without abnormal findings 09/14/2019 Women's annual routine gynecological examination Headache Maybe 10 years ago Hypercholesteremia Hypoglycemia Migraine Years ago Other conditions influencing health status Menstruation Personal history of other complications of , childbirth and the puerperium History of Personal history of other malignant neoplasm of skin History of skin cancer Personal history of other medical treatment History of mammogram Psoriasis Pertinent medical history also documented in my below narrative Surgical History Past Surgical History: Procedure Laterality Date SECTION, LOW TRANSVERSE 12/04/2003 and 07/05/2007 ENDOMETRIAL ABLATION June 2017 and 2017 ENDOMETRIAL BIOPSY 05/20/2017 OTHER SURGICAL HISTORY 02/18/2019 Dilation and evacuation OTHER SURGICAL HISTORY 07/01/2019 section OTHER SURGICAL HISTORY 07/01/2019 Foot surgery OTHER SURGICAL HISTORY 07/01/2019 Laparoscopy OTHER SURGICAL HISTORY 09/17/2021 Skin lesion excision SINUS SURGERY ? TOTAL ABDOMINAL HYSTERECTOMY 07/02/2018 TUBAL LIGATION June 2017 WISDOM TOOTH EXTRACTION ? Pertinent surgical history also documented in my below narrative Social History She reports that she has quit smoking. Her smoking use included cigarettes. She has never used smokeless tobacco. She reports that she does not currently use alcohol. She reports that she does not use drugs. Family History Family History Problem Relation Name Age of Onset Arthritis Mother Brittnee Irritable bowel syndrome Mother Brittnee COPD Father Golden Heart disease Father Golden Cancer Father Golden Breast cancer Paternal Grandmother [place] Allergies Sulfa (sulfonamide antibiotics) and Nickel Medications Prior to Admission Medication Sig Dispense Refill Last Dose atogepant (Qulipta) 60 mg tablet tablet 1 tablet (60 mg) once daily. Past Week azelastine-fluticasone (Dymista) 137-50 mcg/spray nasal spray Administer 1 spray into each nostril 2 times a day as needed for rhinitis. Past Week loratadine (Claritin) 10 mg tablet Take 1 tablet (10 mg) by mouth once daily. Past Week montelukast (Singulair) 10 mg tablet Take 1 tablet (10 mg) by mouth once daily at bedtime. Past Week naproxen (Naprosyn) 500 mg tablet Take 1 tablet (500 mg) by mouth every 12 hours. 60 tablet 2 10/17/2023 phentermine 37.5 mg capsule Take 1 capsule (37.5 mg) by mouth once daily in the morning. Take before meals. 30 capsule 0 Past Week sertraline (Zoloft) 100 mg tablet Take 1 tablet (100 mg) by mouth once daily. 30 tablet 11 10/17/2023 bimekizumab-bkzx 160 mg/mL auto-injector Inject 320 mg under the skin every 8 (eight) weeks. Last had 3-4 weeks ago predniSONE (Deltasone) 20 mg tablet Take 2 tablets once daily x 5 days. Take early in your day. (Patient not taking: Reported on 10/18/2023) 10 tablet 0 Not Taking Last Recorded Vitals Blood pressure 143/75, pulse 106, temperature 36.1 C (97 F), temperature source Temporal, resp. rate 16, height 1.549 m (5' 1), weight 108 kg (238 lb 8.6 oz), SpO2 93%. Physical Exam Constitutional: General: She is not in acute distress. Appearance: She is obese. She is not ill-appearing. Comments: Awake alert and oriented x3 HENT: Mouth/Throat: Pharynx: Oropharynx is clear. Eyes: Pupils: Pupils are equal, round, and reactive to light. Cardiovascular: Rate and Rhythm: Normal rate and regular rhythm. Heart sounds: Normal heart sounds. Pulmonary: Effort: No respiratory distress. Breath sounds: Normal breath sounds. No wheezing or rhonchi. Abdominal: General: Abdomen is flat. Bowel sounds are normal. There is no distension. Palpations: Abdomen is soft. Tenderness: There is no abdominal tenderness. Musculoskeletal: General: No swelling. Skin: General: Skin is warm. Neurological: General: No focal deficit present. Psychiatric: Mood and Affect: Mood normal. Behavior: Behavior normal. Thought Content: Thought content normal. Judgment: Judgment normal. Relevant Results Results for orders placed or performed during the hospital encounter of 10/17/23 (from the past 24 hour(s)) Comprehensive Metabolic Panel Result Value Ref Range Glucose 127 (H) 74 - 99 mg/dL Sodium 133 (L) 136 - 145 mmol/L Potassium 4.2 3.5 - 5.3 mmol/L Chloride 100 98 - 107 mmol/L Bicarbonate 26 21 - 32 mmol/L Anion Gap 11 10 - 20 mmol/L Urea Nitrogen 15 6 - 23 mg/dL Creatinine 0.77 0.50 - 1.05 mg/dL eGFR >90 >60 mL/min/1.73m*2 Calcium 8.6 8.6 - 10.3 mg/dL Albumin 3.1 (L) 3.4 - 5.0 g/dL Alkaline Phosphatase 93 33 - 110 U/L Total Protein 5.7 (L) 6.4 - 8.2 g/dL AST 192 (H) 9 - 39 U/L Bilirubin, Total 0.4 0.0 - 1.2 mg/dL ALT 169 (H) 7 - 45 U/L CBC and Auto Differential Result Value Ref Range WBC 7.3 4.4 - 11.3 x10*3/uL nRBC 0.0 0.0 - 0.0 /100 WBCs RBC 5.03 4.00 - 5.20 x10*6/uL Hemoglobin 13.8 12.0 - 16.0 g/dL Hematocrit 42.2 36.0 - 46.0 % MCV 84 80 - 100 fL MCH 27.4 26.0 - 34.0 pg MCHC 32.7 32.0 - 36.0 g/dL RDW 14.2 11.5 - 14.5 % Platelets 206 150 - 450 x10*3/uL Neutrophils % 69.1 40.0 - 80.0 % Immature Granulocytes %, Automated 0.8 0.0 - 0.9 % Lymphocytes % 20.1 13.0 - 44.0 % Monocytes % 2.3 2.0 - 10.0 % Eosinophils % 7.6 0.0 - 6.0 % Basophils % 0.1 0.0 - 2.0 % Neutrophils Absolute 5.06 1.20 - 7.70 x10*3/uL Immature Granulocytes Absolute, Automated 0.06 0.00 - 0.70 x10*3/uL Lymphocytes Absolute 1.47 1.20 - 4.80 x10*3/uL Monocytes Absolute 0.17 0.10 - 1.00 x10*3/uL Eosinophils Absolute 0.56 0.00 - 0.70 x10*3/uL Basophils Absolute 0.01 0.00 - 0.10 x10*3/uL Lactate Result Value Ref Range Lactate 1.2 0.4 - 2.0 mmol/L Sars-CoV-2 PCR Result Value Ref Range Coronavirus 2019, PCR Not Detected Not Detected RSV PCR Result Value Ref Range RSV PCR Not Detected Not Detected Cardiac Enzymes - CPK Result Value Ref Range Creatine Kinase 4,423 (H) 0 - 215 U/L Thyroid Stimulating Hormone Result Value Ref Range Thyroid Stimulating Hormone 2.69 0.44 - 3.98 mIU/L Troponin I, High Sensitivity, Initial Result Value Ref Range Troponin I, High Sensitivity 489 (HH) 0 - 13 ng/L Mononucleosis screen Result Value Ref Range Mononucleosis Screen Negative Negative Troponin, High Sensitivity, 1 Hour Result Value Ref Range Troponin I, High Sensitivity 457 (HH) 0 - 13 ng/L Urinalysis with Reflex Culture and Microscopic Result Value Ref Range Color, Urine Colorless (N) Light-Yellow, Yellow, Dark-Yellow Appearance, Urine Clear Clear Specific [place], Urine 1.007 1.005 - 1.035 pH, Urine 6.5 5.0, 5.5, 6.0, 6.5, 7.0, 7.5, 8.0 Protein, Urine NEGATIVE NEGATIVE, 10 (TRACE), 20 (TRACE) mg/dL Glucose, Urine Normal Normal mg/dL Blood, Urine NEGATIVE NEGATIVE Ketones, Urine NEGATIVE NEGATIVE mg/dL Bilirubin, Urine NEGATIVE NEGATIVE Urobilinogen, Urine Normal Normal mg/dL Nitrite, Urine NEGATIVE NEGATIVE Leukocyte Esterase, Urine NEGATIVE NEGATIVE XR chest 1 view Result Date: 10/17/2023 Interpreted By: Merlin Tapia, STUDY: XR CHEST 1 VIEW; 10/17/2023 10:25 pm INDICATION: Signs/Symptoms:Weakness. COMPARISON: 02/13/2023 ACCESSION NUMBER(S): [id number] ORDERING CLINICIAN: CARRIE ALEJO FINDINGS: There is elevation of the right hemidiaphragm right basilar airspace opacity which is new from 02/13/2023. Normal heart size. No pneumothorax. Indistinctness of the right costophrenic sulcus may reflect a small pleural effusion. 0.8 cm pulmonary nodular opacity projected over the right upper lung which is similar to 144. Upper abdomen is unremarkable. 1. There is elevation of the right hemidiaphragm right basilar airspace opacity which is new from 02/13/2023. Possible small right pleural effusion. Consider atelectasis or consolidation/pneumonia. 2. Pulmonary nodule as seen on the 02/13/2023 CT. Signed by: Merlin Tapia 10/17/2023 11:06 PM Dictation workstation: [id number] Assessment/Plan 48-year-old morbidly obese female with a past medical history of migraines, right knee osteoarthritis, hyperlipidemia and who is perimenopausal, who presented to the emergency room for a 4 days history of diffuse bodyaches. Workup in the emergency room showed an acute rhabdomyolysis associated with hyponatremia, elevated troponin, transaminitis and hypoalbuminemia. Chest x-ray showed a right basilar airspace opacity. I will admit the patient to the inpatient medical service with telemetry and vital signs monitoring. I still do not have yet a clear explanation of patient's rhabdomyolysis. Most viral infections have been ruled out. And her clinical presentation does not reflect someone who has a pneumonia. She does not have a chest pain and therefore likelihood of myocarditis is low. I will check procalcitonin level. No indications for antibiotics at the time being. I will give IV fluids normal saline at rate of 200 cc/hour. For the coming 24 hours. ER physician reached out to cardiology on-call regarding the elevated troponins. The latter recommended repeating troponin in the morning and ordering echocardiogram. No indications at the time being for anticoagulation therapy. I will also consult cardiology. I noticed that patient is taking phentermine for weight loss. But she has been taking this for a while. And it is not listed to cause rhabdomyolysis as a side effect. Resume home dose Zoloft SCDs and heparin for DVT prophylaxis Full code (This note was generated with voice recognition software and may contain errors including spelling, grammar, syntax and misrecognition of what was dictated, that are not fully corrected) Keena Guerra MD [facility] Work Phone: 10-18-2023 Plan of care note The patient's goals for the shift include go home. The clinical goals for the shift include keep hydrated, pain control. [facility] Work Phone: 10-18-2023 History and physical note History Of Present Illness Suraj Hawk is a 48 y.o. female Who presented to the emergency room for a 4 days history of diffuse bodyaches, lightheadedness, dizziness, and hot flashes. On presentation, vital signs grossly within normal limits. Pertinent findings on blood workup; sodium 133, albumin 3.1, ALT 169, AST 192, creatinine kinase 4423 and troponin 489 with repeat of 457. EKG did not show any acute findings. Chest x-ray showed a right basilar airspace opacity. COVID-19, RSV, and mononucleosis all came back negative. Influenza also negative. Patient was given in the emergency room IV fluids and then admitted to the medical service for further investigation and management. Upon encounter, patient resting comfortably in her bed. She reports ongoing body aches and pain. This has been going on for 4 days. It has been progressively worsening in severity and frequency. Denies any strenuous activity. No seizure activity. No falls. Denies having any other flulike symptoms. No chest pain. No shortness of breath. ROS 10 systems were reviewed and were negative except for those noted in the history of present illness. Past Medical History Past Medical History: Diagnosis Date Allergic ? Arthritis 01/2022 Encounter for delivery without indication ([facility]) Delivery of by section Encounter for gynecological examination (general) (routine) without abnormal findings Pap test, as part of routine gynecological examination Encounter for gynecological examination (general) (routine) without abnormal findings 09/14/2019 Women's annual routine gynecological examination Headache Maybe 10 years ago Hypercholesteremia Hypoglycemia Migraine Years ago Other conditions influencing health status Menstruation Personal history of other complications of , childbirth and the puerperium History of Personal history of other malignant neoplasm of skin History of skin cancer Personal history of other medical treatment History of mammogram Psoriasis Pertinent medical history also documented in my below narrative Surgical History Past Surgical History: Procedure Laterality Date SECTION, LOW TRANSVERSE 12/04/2003 and 07/05/2007 ENDOMETRIAL ABLATION June 2017 and 2017 ENDOMETRIAL BIOPSY 05/20/2017 OTHER SURGICAL HISTORY 02/18/2019 Dilation and evacuation OTHER SURGICAL HISTORY 07/01/2019 section OTHER SURGICAL HISTORY 07/01/2019 Foot surgery OTHER SURGICAL HISTORY 07/01/2019 Laparoscopy OTHER SURGICAL HISTORY 09/17/2021 Skin lesion excision SINUS SURGERY ? TOTAL ABDOMINAL HYSTERECTOMY 07/02/2018 TUBAL LIGATION June 2017 WISDOM TOOTH EXTRACTION ? Pertinent surgical history also documented in my below narrative Social History She reports that she has quit smoking. Her smoking use included cigarettes. She has never used smokeless tobacco. She reports that she does not currently use alcohol. She reports that she does not use drugs. Family History Family History Problem Relation Name Age of Onset Arthritis Mother Brittnee Irritable bowel syndrome Mother Brittnee COPD Father Golden Heart disease Father Golden Cancer Father Golden Breast cancer Paternal Grandmother [place] Allergies Sulfa (sulfonamide antibiotics) and Nickel Medications Prior to Admission Medication Sig Dispense Refill Last Dose atogepant (Qulipta) 60 mg tablet tablet 1 tablet (60 mg) once daily. Past Week azelastine-fluticasone (Dymista) 137-50 mcg/spray nasal spray Administer 1 spray into each nostril 2 times a day as needed for rhinitis. Past Week loratadine (Claritin) 10 mg tablet Take 1 tablet (10 mg) by mouth once daily. Past Week montelukast (Singulair) 10 mg tablet Take 1 tablet (10 mg) by mouth once daily at bedtime. Past Week naproxen (Naprosyn) 500 mg tablet Take 1 tablet (500 mg) by mouth every 12 hours. 60 tablet 2 10/17/2023 phentermine 37.5 mg capsule Take 1 capsule (37.5 mg) by mouth once daily in the morning. Take before meals. 30 capsule 0 Past Week sertraline (Zoloft) 100 mg tablet Take 1 tablet (100 mg) by mouth once daily. 30 tablet 11 10/17/2023 bimekizumab-bkzx 160 mg/mL auto-injector Inject 320 mg under the skin every 8 (eight) weeks. Last had 3-4 weeks ago predniSONE (Deltasone) 20 mg tablet Take 2 tablets once daily x 5 days. Take early in your day. (Patient not taking: Reported on 10/18/2023) 10 tablet 0 Not Taking Last Recorded Vitals Blood pressure 143/75, pulse 106, temperature 36.1 C (97 F), temperature source Temporal, resp. rate 16, height 1.549 m (5' 1), weight 108 kg (238 lb 8.6 oz), SpO2 93%. Physical Exam Constitutional: General: She is not in acute distress. Appearance: She is obese. She is not ill-appearing. Comments: Awake alert and oriented x3 HENT: Mouth/Throat: Pharynx: Oropharynx is clear. Eyes: Pupils: Pupils are equal, round, and reactive to light. Cardiovascular: Rate and Rhythm: Normal rate and regular rhythm. Heart sounds: Normal heart sounds. Pulmonary: Effort: No respiratory distress. Breath sounds: Normal breath sounds. No wheezing or rhonchi. Abdominal: General: Abdomen is flat. Bowel sounds are normal. There is no distension. Palpations: Abdomen is soft. Tenderness: There is no abdominal tenderness. Musculoskeletal: General: No swelling. Skin: General: Skin is warm. Neurological: General: No focal deficit present. Psychiatric: Mood and Affect: Mood normal. Behavior: Behavior normal. Thought Content: Thought content normal. Judgment: Judgment normal. Relevant Results Results for orders placed or performed during the hospital encounter of 10/17/23 (from the past 24 hour(s)) Comprehensive Metabolic Panel Result Value Ref Range Glucose 127 (H) 74 - 99 mg/dL Sodium 133 (L) 136 - 145 mmol/L Potassium 4.2 3.5 - 5.3 mmol/L Chloride 100 98 - 107 mmol/L Bicarbonate 26 21 - 32 mmol/L Anion Gap 11 10 - 20 mmol/L Urea Nitrogen 15 6 - 23 mg/dL Creatinine 0.77 0.50 - 1.05 mg/dL eGFR >90 >60 mL/min/1.73m*2 Calcium 8.6 8.6 - 10.3 mg/dL Albumin 3.1 (L) 3.4 - 5.0 g/dL Alkaline Phosphatase 93 33 - 110 U/L Total Protein 5.7 (L) 6.4 - 8.2 g/dL AST 192 (H) 9 - 39 U/L Bilirubin, Total 0.4 0.0 - 1.2 mg/dL ALT 169 (H) 7 - 45 U/L CBC and Auto Differential Result Value Ref Range WBC 7.3 4.4 - 11.3 x10*3/uL nRBC 0.0 0.0 - 0.0 /100 WBCs RBC 5.03 4.00 - 5.20 x10*6/uL Hemoglobin 13.8 12.0 - 16.0 g/dL Hematocrit 42.2 36.0 - 46.0 % MCV 84 80 - 100 fL MCH 27.4 26.0 - 34.0 pg MCHC 32.7 32.0 - 36.0 g/dL RDW 14.2 11.5 - 14.5 % Platelets 206 150 - 450 x10*3/uL Neutrophils % 69.1 40.0 - 80.0 % Immature Granulocytes %, Automated 0.8 0.0 - 0.9 % Lymphocytes % 20.1 13.0 - 44.0 % Monocytes % 2.3 2.0 - 10.0 % Eosinophils % 7.6 0.0 - 6.0 % Basophils % 0.1 0.0 - 2.0 % Neutrophils Absolute 5.06 1.20 - 7.70 x10*3/uL Immature Granulocytes Absolute, Automated 0.06 0.00 - 0.70 x10*3/uL Lymphocytes Absolute 1.47 1.20 - 4.80 x10*3/uL Monocytes Absolute 0.17 0.10 - 1.00 x10*3/uL Eosinophils Absolute 0.56 0.00 - 0.70 x10*3/uL Basophils Absolute 0.01 0.00 - 0.10 x10*3/uL Lactate Result Value Ref Range Lactate 1.2 0.4 - 2.0 mmol/L Sars-CoV-2 PCR Result Value Ref Range Coronavirus 2019, PCR Not Detected Not Detected RSV PCR Result Value Ref Range RSV PCR Not Detected Not Detected Cardiac Enzymes - CPK Result Value Ref Range Creatine Kinase 4,423 (H) 0 - 215 U/L Thyroid Stimulating Hormone Result Value Ref Range Thyroid Stimulating Hormone 2.69 0.44 - 3.98 mIU/L Troponin I, High Sensitivity, Initial Result Value Ref Range Troponin I, High Sensitivity 489 (HH) 0 - 13 ng/L Mononucleosis screen Result Value Ref Range Mononucleosis Screen Negative Negative Troponin, High Sensitivity, 1 Hour Result Value Ref Range Troponin I, High Sensitivity 457 (HH) 0 - 13 ng/L Urinalysis with Reflex Culture and Microscopic Result Value Ref Range Color, Urine Colorless (N) Light-Yellow, Yellow, Dark-Yellow Appearance, Urine Clear Clear Specific [place], Urine 1.007 1.005 - 1.035 pH, Urine 6.5 5.0, 5.5, 6.0, 6.5, 7.0, 7.5, 8.0 Protein, Urine NEGATIVE NEGATIVE, 10 (TRACE), 20 (TRACE) mg/dL Glucose, Urine Normal Normal mg/dL Blood, Urine NEGATIVE NEGATIVE Ketones, Urine NEGATIVE NEGATIVE mg/dL Bilirubin, Urine NEGATIVE NEGATIVE Urobilinogen, Urine Normal Normal mg/dL Nitrite, Urine NEGATIVE NEGATIVE Leukocyte Esterase, Urine NEGATIVE NEGATIVE XR chest 1 view Result Date: 10/17/2023 Interpreted By: Merlin Tapia, STUDY: XR CHEST 1 VIEW; 10/17/2023 10:25 pm INDICATION: Signs/Symptoms:Weakness. COMPARISON: 02/13/2023 ACCESSION NUMBER(S): [id number] ORDERING CLINICIAN: CARRIE ALEJO FINDINGS: There is elevation of the right hemidiaphragm right basilar airspace opacity which is new from 02/13/2023. Normal heart size. No pneumothorax. Indistinctness of the right costophrenic sulcus may reflect a small pleural effusion. 0.8 cm pulmonary nodular opacity projected over the right upper lung which is similar to 144. Upper abdomen is unremarkable. 1. There is elevation of the right hemidiaphragm right basilar airspace opacity which is new from 02/13/2023. Possible small right pleural effusion. Consider atelectasis or consolidation/pneumonia. 2. Pulmonary nodule as seen on the 02/13/2023 CT. Signed by: Merlin Tapia 10/17/2023 11:06 PM Dictation workstation: [id number] Assessment/Plan 48-year-old morbidly obese female with a past medical history of migraines, right knee osteoarthritis, hyperlipidemia and who is perimenopausal, who presented to the emergency room for a 4 days history of diffuse bodyaches. Workup in the emergency room showed an acute rhabdomyolysis associated with hyponatremia, elevated troponin, transaminitis and hypoalbuminemia. Chest x-ray showed a right basilar airspace opacity. I will admit the patient to the inpatient medical service with telemetry and vital signs monitoring. I still do not have yet a clear explanation of patient's rhabdomyolysis. Most viral infections have been ruled out. And her clinical presentation does not reflect someone who has a pneumonia. She does not have a chest pain and therefore likelihood of myocarditis is low. I will check procalcitonin level. No indications for antibiotics at the time being. I will give IV fluids normal saline at rate of 200 cc/hour. For the coming 24 hours. ER physician reached out to cardiology on-call regarding the elevated troponins. The latter recommended repeating troponin in the morning and ordering echocardiogram. No indications at the time being for anticoagulation therapy. I will also consult cardiology. I noticed that patient is taking phentermine for weight loss. But she has been taking this for a while. And it is not listed to cause rhabdomyolysis as a side effect. Resume home dose Zoloft SCDs and heparin for DVT prophylaxis Full code (This note was generated with voice recognition software and may contain errors including spelling, grammar, syntax and misrecognition of what was dictated, that are not fully corrected) Keena Guerra MD documented in this encounter [facility] Work Phone: 10-17-2023 Emergency department Note Multiple complaints. This 48-year-old white female states that since Friday she is just not been feeling well and she states that she has been experiencing hot flashes, lightheadedness and dizziness. She states that she is also been experiencing diffuse pain in both her muscles and joints and states that any type of movement or activity makes her symptoms worse he also admits to having some generalized fatigue. She denies any urinary symptoms. She states that she did have upper respiratory infection symptoms initially had a sore throat. She denies any history of fevers or night sweats. She was seen and evaluated yesterday in urgent care center that tested her for strep throat, COVID and influenza. 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 Constitutional: General: She is awake. Appearance: Normal appearance. She is obese. HENT: Head: Normocephalic and atraumatic. Right Ear: Hearing and external ear normal. Left Ear: Hearing and external ear normal. Nose: Rhinorrhea present. No congestion. Rhinorrhea is clear. Mouth/Throat: Lips: [place]. Mouth: Mucous membranes are moist. Pharynx: Oropharynx is clear. Uvula midline. Posterior oropharyngeal erythema present. No oropharyngeal exudate. Eyes: General: Lids are normal. Vision grossly intact. Right eye: No discharge. Left eye: No discharge. Extraocular Movements: Extraocular movements intact. Conjunctiva/sclera: Conjunctivae normal. Pupils: Pupils are equal, round, and reactive to light. Cardiovascular: Rate and Rhythm: Normal rate and regular rhythm. Pulses: Normal pulses. Heart sounds: Normal heart sounds. No murmur heard. No friction rub. No gallop. Pulmonary: Effort: Pulmonary effort is normal. No respiratory distress. Breath sounds: Normal breath sounds. No stridor. No wheezing, rhonchi or rales. Chest: Chest wall: No tenderness. Abdominal: General: Abdomen is protuberant. Bowel sounds are normal. There is no distension. Palpations: Abdomen is soft. There is no mass. Tenderness: There is no abdominal tenderness. There is no guarding or rebound. Hernia: No hernia is present. Comments: Patient has a benign abdominal exam. Musculoskeletal: General: No swelling, tenderness, deformity or signs of injury. Normal range of motion. Cervical back: Full passive range of motion without pain, normal range of motion and neck supple. Right lower leg: Normal. No edema. Left lower leg: Normal. No edema. Skin: General: Skin is warm and dry. Capillary Refill: Capillary refill takes less than 2 seconds. Coloration: Skin is not jaundiced or pale. Findings: No bruising, erythema, lesion or rash. Neurological: General: No focal deficit present. Mental Status: She is alert and oriented to person, place, and time. GCS: GCS eye subscore is 4. GCS verbal subscore is 5. GCS motor subscore is 6. Cranial Nerves: Cranial nerves 2-12 are intact. No cranial nerve deficit. Sensory: Sensation is intact. No sensory deficit. Motor: Motor function is intact. No weakness. Coordination: Coordination is intact. Coordination normal. Deep Tendon Reflexes: Reflexes normal. Psychiatric: Attention and Perception: Attention and perception normal. Mood and Affect: Mood and affect normal. Speech: Speech normal. Behavior: Behavior normal. Behavior is cooperative. Thought Content: Thought content normal. Cognition and Memory: Cognition and memory normal. Judgment: Judgment normal. Labs Reviewed COMPREHENSIVE METABOLIC PANEL - Abnormal Result Value Glucose 127 (*) Sodium 133 (*) Potassium 4.2 Chloride 100 Bicarbonate 26 Anion Gap 11 Urea Nitrogen 15 Creatinine 0.77 eGFR >90 Calcium 8.6 Albumin 3.1 (*) Alkaline Phosphatase 93 Total Protein 5.7 (*) AST 192 (*) Bilirubin, Total 0.4 ALT 169 (*) CREATINE KINASE - Abnormal Creatine Kinase 4,423 (*) URINALYSIS WITH REFLEX CULTURE AND MICROSCOPIC - Abnormal Color, Urine Colorless (*) Appearance, Urine Clear Specific [place], Urine 1.007 pH, Urine 6.5 Protein, Urine NEGATIVE Glucose, Urine Normal Blood, Urine NEGATIVE Ketones, Urine NEGATIVE Bilirubin, Urine NEGATIVE Urobilinogen, Urine Normal Nitrite, Urine NEGATIVE Leukocyte Esterase, Urine NEGATIVE SERIAL TROPONIN-INITIAL - Abnormal Troponin I, High Sensitivity 489 (*) Narrative: Less than 99th percentile of normal range cutoff- Female and children under 18 years old <14 ng/L; Male <21 ng/L: Negative Repeat testing should be performed if clinically indicated. Female and children under 18 years old 14-50 ng/L; Male 21-50 ng/L: Consistent with possible cardiac damage and possible increased clinical risk. Serial measurements may help to assess extent of myocardial damage. >50 ng/L: Consistent with cardiac damage, increased clinical risk and myocardial infarction. Serial measurements may help assess extent of myocardial damage. NOTE: Children less than 1 year old may have higher baseline troponin levels and results should be interpreted in conjunction with the overall clinical context. NOTE: Troponin I testing is performed using a different testing methodology at [facility] [place] at other [place] [facility]. Direct result comparisons should only be made within the same method. SERIAL TROPONIN, 1 HOUR - Abnormal Troponin I, High Sensitivity 457 (*) Narrative: Less than 99th percentile of normal range cutoff- Female and children under 18 years old <14 ng/L; Male <21 ng/L: Negative Repeat testing should be performed if clinically indicated. Female and children under 18 years old 14-50 ng/L; Male 21-50 ng/L: Consistent with possible cardiac damage and possible increased clinical risk. Serial measurements may help to assess extent of myocardial damage. >50 ng/L: Consistent with cardiac damage, increased clinical risk and myocardial infarction. Serial measurements may help assess extent of myocardial damage. NOTE: Children less than 1 year old may have higher baseline troponin levels and results should be interpreted in conjunction with the overall clinical context. NOTE: Troponin I testing is performed using a different testing methodology at [facility] [place] than at [facility]. Direct result comparisons should only be made within the same method. LACTATE - Normal Lactate 1.2 Narrative: Venipuncture immediately after or during the administration of Metamizole may lead to falsely low results. Testing should be performed immediately prior to Metamizole dosing. SARS-COV-2 PCR - Normal Coronavirus 2019, PCR Not Detected Narrative: This assay has received FDA Emergency Use Authorization (EUA) and is only authorized for the duration of time that circumstances exist to justify the authorization of the emergency use of in vitro diagnostic tests for the detection of SARS-CoV-2 virus and/or diagnosis of COVID-19 infection under section 564(b)(1) of the Act, 21 U.S.C. 360bbb-3(b)(1). This assay is an in vitro diagnostic nucleic acid amplification test for the qualitative detection of SARS-CoV-2 from nasopharyngeal specimens and has been validated for use at [facility]. Negative results do not preclude COVID-19 infections and should not be used as the sole basis for diagnosis, treatment, or other management decisions. RSV PCR - Normal RSV PCR Not Detected Narrative: This assay is an FDA-cleared, in vitro diagnostic nucleic acid amplification test for the detection of RSV from nasopharyngeal specimens, and has been validated for use at [facility]. Negative results do not preclude RSV infections, and should not be used as the sole basis for diagnosis, treatment, or other management decisions. If Influenza A/B and RSV PCR results are negative, testing for Parainfluenza virus, Adenovirus and Metapneumovirus is routinely performed for pediatric oncology and intensive care inpatients at [facility], and is available on other patients by placing an add-on request. TSH - Normal Thyroid Stimulating Hormone 2.69 Narrative: TSH testing is performed using different testing methodology at [facility] [place] than at [facility]. Direct result comparisons should only be made within the same method. MONONUCLEOSIS SCREEN (HETEROPHILE ANTIBODY) - Normal Mononucleosis Screen Negative CBC WITH AUTO DIFFERENTIAL WBC 7.3 nRBC 0.0 RBC 5.03 Hemoglobin 13.8 Hematocrit 42.2 MCV 84 MCH 27.4 MCHC 32.7 RDW 14.2 Platelets 206 Neutrophils % 69.1 Immature Granulocytes %, Automated 0.8 Lymphocytes % 20.1 Monocytes % 2.3 Eosinophils % 7.6 Basophils % 0.1 Neutrophils Absolute 5.06 Immature Granulocytes Absolute, Automated 0.06 Lymphocytes Absolute 1.47 Monocytes Absolute 0.17 Eosinophils Absolute 0.56 Basophils Absolute 0.01 TROPONIN SERIES- (INITIAL, 1 HR) Narrative: The following orders were created for panel order Troponin I Series, High Sensitivity (0, 1 HR). Procedure Abnormality Status --------- ------ Troponin I, High Sensiti...[[id number]] Abnormal Final result Troponin, High Sensitivi...[[id number]] Abnormal Final result Please view results for these tests on the individual orders. URINALYSIS WITH REFLEX CULTURE AND MICROSCOPIC Narrative: The following orders were created for panel order Urinalysis with Reflex Culture and Microscopic. Procedure Abnormality Status --------- ------ Urinalysis with Reflex C...[[id number]] Abnormal Final result Extra Urine Henley Tube[[id number]] Please view results for these tests on the individual orders. EXTRA URINE HENLEY TUBE XR chest 1 view Final Result 1. There is elevation of the right hemidiaphragm right basilar airspace opacity which is new from 02/13/2023. Possible small right pleural effusion. Consider atelectasis or consolidation/pneumonia. 2. Pulmonary nodule as seen on the 02/13/2023 CT. Signed by: Merlin Tapia 10/17/2023 11:06 PM Dictation workstation: [id number] Transthoracic Echo (TTE) Complete (Results Pending) Procedures Medical Decision Making Patient was seen and evaluated due to flulike symptoms with myalgias arthralgias and generalized fatigue. She was worked up for these symptoms with testing for COVID, RSV and mononucleosis. These were all negative. CMP reveals sodium 133. Albumin is low at 3.1. Protein was low at 5.7. AST was 192 and AST was elevated at 182. ALT was elevated at 169. TSH was 2.69. Lactic acid was normal 1.2. White cell count was normal at 7.3 hemoglobin normal at 13.8. CPK was high at 2004 and 23. Initial troponin was 489. Repeat troponin is 457. Chest x-ray showed elevation of right hemidiaphragm and right basilar airspace opacity which is new from 02/13/2023 with possible small right pleural effusion consider atelectasis or consolidation/pneumonia. Pulmonary nodule as seen in 02/13/2023 CT scan. EKG revealed no acute ischemic changes with low voltage QRS. I then had detailed discussion of the patient concerning her lab work and plan for admission to the hospital. I did consult with Dr. Lowery-hospice volunteer's recommendation was repeat troponin in 6 hours and to get an echocardiogram. He did not recommend IV heparin at this point in time. I subsequently talked to the internal medicine physician for admission of this patient to the hospital. Amount and/or Complexity of Data Reviewed Discussion of management or test interpretation with external provider(s): EKG was interpreted by myself at 12:23 AM reveals normal sinus rhythm with low voltage QRS. The heart rate 89 bpm. The MI interval is 152 ms. The QRS duration 76 ms. The QTc is 389 ms. [place]ick is -2 degrees. Diagnoses as of 10/18/23536 Rhabdomyolysis Carrie Alejo DO 10/18/23536 documented in this encounter [facility] Work Phone: 10-17-2023 Physician Emergency department Note Multiple complaints. This 48-year-old white female states that since Friday she is just not been feeling well and she states that she has been experiencing hot flashes, lightheadedness and dizziness. She states that she is also been experiencing diffuse pain in both her muscles and joints and states that any type of movement or activity makes her symptoms worse he also admits to having some generalized fatigue. She denies any urinary symptoms. She states that she did have upper respiratory infection symptoms initially had a sore throat. She denies any history of fevers or night sweats. She was seen and evaluated yesterday in urgent care center that tested her for strep throat, COVID and influenza. 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 Constitutional: General: She is awake. Appearance: Normal appearance. She is obese. HENT: Head: Normocephalic and atraumatic. Right Ear: Hearing and external ear normal. Left Ear: Hearing and external ear normal. Nose: Rhinorrhea present. No congestion. Rhinorrhea is clear. Mouth/Throat: Lips: [place]. Mouth: Mucous membranes are moist. Pharynx: Oropharynx is clear. Uvula midline. Posterior oropharyngeal erythema present. No oropharyngeal exudate. Eyes: General: Lids are normal. Vision grossly intact. Right eye: No discharge. Left eye: No discharge. Extraocular Movements: Extraocular movements intact. Conjunctiva/sclera: Conjunctivae normal. Pupils: Pupils are equal, round, and reactive to light. Cardiovascular: Rate and Rhythm: Normal rate and regular rhythm. Pulses: Normal pulses. Heart sounds: Normal heart sounds. No murmur heard. No friction rub. No gallop. Pulmonary: Effort: Pulmonary effort is normal. No respiratory distress. Breath sounds: Normal breath sounds. No stridor. No wheezing, rhonchi or rales. Chest: Chest wall: No tenderness. Abdominal: General: Abdomen is protuberant. Bowel sounds are normal. There is no distension. Palpations: Abdomen is soft. There is no mass. Tenderness: There is no abdominal tenderness. There is no guarding or rebound. Hernia: No hernia is present. Comments: Patient has a benign abdominal exam. Musculoskeletal: General: No swelling, tenderness, deformity or signs of injury. Normal range of motion. Cervical back: Full passive range of motion without pain, normal range of motion and neck supple. Right lower leg: Normal. No edema. Left lower leg: Normal. No edema. Skin: General: Skin is warm and dry. Capillary Refill: Capillary refill takes less than 2 seconds. Coloration: Skin is not jaundiced or pale. Findings: No bruising, erythema, lesion or rash. Neurological: General: No focal deficit present. Mental Status: She is alert and oriented to person, place, and time. GCS: GCS eye subscore is 4. GCS verbal subscore is 5. GCS motor subscore is 6. Cranial Nerves: Cranial nerves 2-12 are intact. No cranial nerve deficit. Sensory: Sensation is intact. No sensory deficit. Motor: Motor function is intact. No weakness. Coordination: Coordination is intact. Coordination normal. Deep Tendon Reflexes: Reflexes normal. Psychiatric: Attention and Perception: Attention and perception normal. Mood and Affect: Mood and affect normal. Speech: Speech normal. Behavior: Behavior normal. Behavior is cooperative. Thought Content: Thought content normal. Cognition and Memory: Cognition and memory normal. Judgment: Judgment normal. Labs Reviewed COMPREHENSIVE METABOLIC PANEL - Abnormal Result Value Glucose 127 (*) Sodium 133 (*) Potassium 4.2 Chloride 100 Bicarbonate 26 Anion Gap 11 Urea Nitrogen 15 Creatinine 0.77 eGFR >90 Calcium 8.6 Albumin 3.1 (*) Alkaline Phosphatase 93 Total Protein 5.7 (*) AST 192 (*) Bilirubin, Total 0.4 ALT 169 (*) CREATINE KINASE - Abnormal Creatine Kinase 4,423 (*) URINALYSIS WITH REFLEX CULTURE AND MICROSCOPIC - Abnormal Color, Urine Colorless (*) Appearance, Urine Clear Specific [place], Urine 1.007 pH, Urine 6.5 Protein, Urine NEGATIVE Glucose, Urine Normal Blood, Urine NEGATIVE Ketones, Urine NEGATIVE Bilirubin, Urine NEGATIVE Urobilinogen, Urine Normal Nitrite, Urine NEGATIVE Leukocyte Esterase, Urine NEGATIVE SERIAL TROPONIN-INITIAL - Abnormal Troponin I, High Sensitivity 489 (*) Narrative: Less than 99th percentile of normal range cutoff- Female and children under 18 years old <14 ng/L; Male <21 ng/L: Negative Repeat testing should be performed if clinically indicated. Female and children under 18 years old 14-50 ng/L; Male 21-50 ng/L: Consistent with possible cardiac damage and possible increased clinical risk. Serial measurements may help to assess extent of myocardial damage. >50 ng/L: Consistent with cardiac damage, increased clinical risk and myocardial infarction. Serial measurements may help assess extent of myocardial damage. NOTE: Children less than 1 year old may have higher baseline troponin levels and results should be interpreted in conjunction with the overall clinical context. NOTE: Troponin I testing is performed using a different testing methodology at [facility] [place] than at other [facility]. Direct result comparisons should only be made within the same method. SERIAL TROPONIN, 1 HOUR - Abnormal Troponin I, High Sensitivity 457 (*) Narrative: Less than 99th percentile of normal range cutoff- Female and children under 18 years old <14 ng/L; Male <21 ng/L: Negative Repeat testing should be performed if clinically indicated. Female and children under 18 years old 14-50 ng/L; Male 21-50 ng/L: Consistent with possible cardiac damage and possible increased clinical risk. Serial measurements may help to assess extent of myocardial damage. >50 ng/L: Consistent with cardiac damage, increased clinical risk and myocardial infarction. Serial measurements may help assess extent of myocardial damage. NOTE: Children less than 1 year old may have higher baseline troponin levels and results should be interpreted in conjunction with the overall clinical context. NOTE: Troponin I testing is performed using a different testing methodology at [facility] [place] [facility]. Direct result comparisons should only be made within the same method. LACTATE - Normal Lactate 1.2 Narrative: Venipuncture immediately after or during the administration of Metamizole may lead to falsely low results. Testing should be performed immediately prior to Metamizole dosing. SARS-COV-2 PCR - Normal Coronavirus 2019, PCR Not Detected Narrative: This assay has received FDA Emergency Use Authorization (EUA) and is only authorized for the duration of time that circumstances exist to justify the authorization of the emergency use of in vitro diagnostic tests for the detection of SARS-CoV-2 virus and/or diagnosis of COVID-19 infection under section 564(b)(1) of the Act, 21 U.S.C. 360bbb-3(b)(1). This assay is an in vitro diagnostic nucleic acid amplification test for the qualitative detection of SARS-CoV-2 from nasopharyngeal specimens and has been validated for use at [facility]. Negative results do not preclude COVID-19 infections and should not be used as the sole basis for diagnosis, treatment, or other management decisions. RSV PCR - Normal RSV PCR Not Detected Narrative: This assay is an FDA-cleared, in vitro diagnostic nucleic acid amplification test for the detection of RSV from nasopharyngeal specimens, and has been validated for use at [facility]. Negative results do not preclude RSV infections, and should not be used as the sole basis for diagnosis, treatment, or other management decisions. If Influenza A/B and RSV PCR results are negative, testing for Parainfluenza virus, Adenovirus and Metapneumovirus is routinely performed for pediatric oncology and intensive care inpatients at [facility], and is available on other patients by placing an add-on request. TSH - Normal Thyroid Stimulating Hormone 2.69 Narrative: TSH testing is performed using different testing methodology at [facility] [place] [facility]. Direct result comparisons should only be made within the same method. MONONUCLEOSIS SCREEN (HETEROPHILE ANTIBODY) - Normal Mononucleosis Screen Negative CBC WITH AUTO DIFFERENTIAL WBC 7.3 nRBC 0.0 RBC 5.03 Hemoglobin 13.8 Hematocrit 42.2 MCV 84 MCH 27.4 MCHC 32.7 RDW 14.2 Platelets 206 Neutrophils % 69.1 Immature Granulocytes %, Automated 0.8 Lymphocytes % 20.1 Monocytes % 2.3 Eosinophils % 7.6 Basophils % 0.1 Neutrophils Absolute 5.06 Immature Granulocytes Absolute, Automated 0.06 Lymphocytes Absolute 1.47 Monocytes Absolute 0.17 Eosinophils Absolute 0.56 Basophils Absolute 0.01 TROPONIN SERIES- (INITIAL, 1 HR) Narrative: The following orders were created for panel order Troponin I Series, High Sensitivity (0, 1 HR). Procedure Abnormality Status --------- ------ Troponin I, High Sensiti...[[id number]] Abnormal Final result Troponin, High Sensitivi...[[id number]] Abnormal Final result Please view results for these tests on the individual orders. URINALYSIS WITH REFLEX CULTURE AND MICROSCOPIC Narrative: The following orders were created for panel order Urinalysis with Reflex Culture and Microscopic. Procedure Abnormality Status --------- ------ Urinalysis with Reflex C...[[id number]] Abnormal Final result Extra Urine Henley Tube[[id number]] Please view results for these tests on the individual orders. EXTRA URINE HENLYE TUBE XR chest 1 view Final Result 1. There is elevation of the right hemidiaphragm right basilar airspace opacity which is new from 02/13/2023. Possible small right pleural effusion. Consider atelectasis or consolidation/pneumonia. 2. Pulmonary nodule as seen on the 02/13/2023 CT. Signed by: Merlin Tapia 10/17/2023 11:06 PM Dictation workstation: [id number] Transthoracic Echo (TTE) Complete (Results Pending) Procedures Medical Decision Making Patient was seen and evaluated due to flulike symptoms with myalgias arthralgias and generalized fatigue. She was worked up for these symptoms with testing for COVID, RSV and mononucleosis. These were all negative. CMP reveals sodium 133. Albumin is low at 3.1. Protein was low at 5.7. AST was 192 and AST was elevated at 182. ALT was elevated at 169. TSH was 2.69. Lactic acid was normal 1.2. White cell count was normal at 7.3 hemoglobin normal at 13.8. CPK was high at 2004 and 23. Initial troponin was 489. Repeat troponin is 457. Chest x-ray showed elevation of right hemidiaphragm and right basilar airspace opacity which is new from 02/13/2023 with possible small right pleural effusion consider atelectasis or consolidation/pneumonia. Pulmonary nodule as seen in 02/13/2023 CT scan. EKG revealed no acute ischemic changes with low voltage QRS. I then had detailed discussion of the patient concerning her lab work and plan for admission to the hospital. I did consult with Dr. Lowery-hospice volunteer's recommendation was repeat troponin in 6 hours and to get an echocardiogram. He did not recommend IV heparin at this point in time. I subsequently talked to the internal medicine physician for admission of this patient to the hospital. Amount and/or Complexity of Data Reviewed Discussion of management or test interpretation with external provider(s): EKG was interpreted by myself at 12:23 AM reveals normal sinus rhythm with low voltage QRS. The heart rate 89 bpm. The MI interval is 152 ms. The QRS duration 76 ms. The QTc is 389 ms. [place] is -2 degrees. Diagnoses as of 10/18/23536 Rhabdomyolysis Carrie Alejo DO 10/18/23536 [facility] Work Phone: 10-16-2023 History of Present illness Narrative [facility] Purnima Piña APRN-CHIMNEY BUILDER Visit Note - 10/16/2023 10:49 AM This note was generated with voice recognition software and may contain errors including spelling, grammar, syntax, and misrecognization of what was dictated. Patient: Suraj Hawk, , 48 y.o., female PCP: Bridger Edouard MD -- ALLERGIES: Allergies Allergen Reactions Sulfa (Sulfonamide Antibiotics) Anxiety, Dizziness, Other, Palpitations and Shortness of breath Nickel Rash CURRENT MEDICATIONS: Current Outpatient Medications Medication Instructions albuterol 90 mcg/actuation inhaler inhale 2 puffs by mouth and INTO THE LUNGS every 4 hours if neede... (REFER TO PRESCRIPTION NOTES). azelastine-fluticasone (Dymista) 137-50 mcg/spray nasal spray INSTILL 1 SPRAY INTO EACH NOSTRIL EVERY 12 HOURS bimekizumab-bkzx 320 mg, subcutaneous, Every 8 weeks loratadine (CLARITIN) 10 mg, oral, Daily montelukast (SINGULAIR) 10 mg, oral, Nightly naproxen (NAPROSYN) 500 mg, oral, Every 12 hours Nurtec ODT 75 mg tablet,disintegrating PLACE 1 TABLET ON OR UNDER THE TONGUE EVERY OTHER DAY FOR MIGRAINE PREVENTION phentermine 37.5 mg, oral, Daily before breakfast predniSONE (Deltasone) 20 mg tablet Take 2 tablets once daily x 5 days. Take early in your day. sertraline (ZOLOFT) 100 mg, oral, Daily SUMAtriptan succinate 4 mg/0.5 mL pen injector INJECT SUBCUTANEOUSLY NEEDED FOR HEADACHE, MAY REPEAT IN 2 HOURS. NO MORE THAN TWICE DAILY -- PAST MEDICAL HX: Patient Active Problem List Diagnosis Allergic rhinitis Primary osteoarthritis of right knee High cholesterol Migraines Nodule of right lung Class 3 severe obesity due to excess calories without serious comorbidity with body mass index (BMI) of 40.0 to 44.9 in adult (Multi) Perimenopause Acute pain of right knee Also reports history of psoriasis. SURGICAL HX: Past Surgical History: Procedure Laterality Date SECTION, LOW TRANSVERSE 12/04/2003 and 07/05/2007 ENDOMETRIAL ABLATION June 2017 and 2017 ENDOMETRIAL BIOPSY 05/20/2017 OTHER SURGICAL HISTORY 02/18/2019 Dilation and evacuation OTHER SURGICAL HISTORY 07/01/2019 section OTHER SURGICAL HISTORY 07/01/2019 Foot surgery OTHER SURGICAL HISTORY 07/01/2019 Laparoscopy OTHER SURGICAL HISTORY 09/17/2021 Skin lesion excision SINUS SURGERY ? TOTAL ABDOMINAL HYSTERECTOMY 07/02/2018 TUBAL LIGATION June 2017 WISDOM TOOTH EXTRACTION ? FAMILY HX: No pertinent history. SOCIAL HX: reports that she has quit smoking. Her smoking use included cigarettes. She has never used smokeless tobacco. -- CHIEF COMPLAINT: Chief Complaint Patient presents with URI Cough, headache, bi-lat ear pain, body aches, sore throat, fatigued, dizzy spells , sinus pressure, congestion x 3 days HISTORY OF PRESENT ILLNESS: The history was obtained from patient. Suraj is a 48 y.o. female, who presents with a chief complaint of body aches, hot flashes/sweats, headaches, bilat ear discomfort, sore throat, nasal congestion, PND, and a mild, dry cough - sxs started on Friday. Has also felt like her equilibrium was a little off at times; denies any lightheadedness or pre-syncopal symptoms. Reports took two home COVID tests and they were both negative. Denies any abdominal pain, chest pain, wheezing/shortness of breath, rashes, urinary symptoms, nausea/vomiting, and diarrhea. Has been urinating normally. Denies any changes in mental status. No swelling in legs. Appetite is decreased ; is able to eat and drink fluids without difficulty; denies loss of sense of taste or smell. Reports symptoms are unchanged since onset. Has been taking Tylenol and Sudafed without much relief; no other ibxl-yaf-sulrtld medications or home remedies for symptom management. No known ill contacts. Has received the COVID vaccine x 3; Has not received this season's influenza vaccine yet. Last known COVID infection was in ~2022. Is a former smoker. No known history of asthma/COPD/respiratory issues. No recent antibiotic use. REVIEW OF SYSTEMS: 10 systems reviewed negative with exception of history of present illness as listed above. TODAY'S VITALS: BP 117/79 Pulse 108 Temp 36.8 C (98.2 F) (Oral) Resp 16 Ht 1.562 m (5' 1.5) Wt 105 kg (232 lb) SpO2 96% BMI 43.13 kg/m Recheck HR: 106. PHYSICAL EXAMINATION: General: Mildly ill-appearing, well nourished female; alert and oriented; in no acute distress. Sitting comfortably on exam chair. Non-dyspneic. Eyes: Pupils equal, round and reactive to light. No conjunctival erythema; no scleral icterus. HENT: No frontal or maxillary sinus tenderness; + audible nasal congestion. Airway patent, TMs and ear canals clear/unremarkable bilaterally. Nasal mucosa mildly injected and edematous. Oral mucosa moist. Posterior pharynx mildly injected but without vesicles or oropharyngeal exudate aside from PND. Uvula is midline. Managing oral secretions without difficulty. Neck: Supple. Mildly tender, mobile anterior cervical lymphadenopathy bilat. Trachea is midline. Respiratory: Respirations easy and unlabored, Breath sounds equal. Lungs are clear to auscultation; no wheezes, rhonchi, or rales; has good air movement throughout. + non-productive cough noted. Non-dyspneic with ambulation; able to maintain SpO2. Cardiovascular: Normal rate, Regular rhythm. Normal S1S2. No m/r/g. No peripheral edema. Gastrointestinal: Soft, non-tender, non-distended; no palpable masses or organomegaly. Bowel sounds normoactive. Musculoskeletal: Grossly normal; appropriate for age. Integumentary: [place], warm, dry, and intact. No rashes or skin discoloration appreciated. Good skin turgor. Neurologic: Alert and oriented, no gross deficits. Cognition and Speech: Oriented, Speech clear and coherent. Psychiatric: Cooperative, Appropriate mood & affect. -- Medical Decision Making LABORATORY or RADIOLOGICAL IMAGING ORDERS/RESULTS: Strep A/influenza/COVID PCR tests done - results pending. IMPRESSION/PLAN: Course: Worsening; stable 1. Viral syndrome - POCT Influenza A/B manually resulted - POCT SARS-COV-2 PCR manually resulted - POCT Group A Streptococcus, PCR manually resulted HR today was slightly elevated although improved upon recheck. No other red flags on exam today, although stressed that if symptoms worsen, will need to seek care for further evaluation/labwork at the ER. Symptoms consistent with viral syndrome, but reviewed other potential etiologies, and strep test and nasal swab obtained (using proper PPE) for influenza/COVID-19 testing to err on the side of caution. No antibiotics indicated at this point, but encouraged to continue conservative measures. Instructed to push fluids, rest, and to use appropriate over the counter medications as needed for management of symptoms. Advised can review test results on the portal and office will contact pt within the next 24-48 hours. Reviewed instructions for self-isolation and continued monitoring. Reviewed red flags to monitor for, counseled on potential adverse reactions of treatments, expectations for improvement in sxs, and advised to follow-up with primary care provider in 24-48 hours if symptoms persist, or to seek care sooner if worsening or if any additional concerns/red flags develop. Patient agreed with plan of care; questions were encouraged and answered. DOROTHEA [facility] Provider [facility] documented in this encounter [facility] Work Phone: 10-15-2023 History of Present illness Narrative Suraj Hawk is a 48 y.o. female who is here for a routine exam. PCP = Bridger Edouard MD Chief Complaint Patient presents with Gynecologic Exam Patient is here for yearly exam and pap test. Patient does not do regular self breast exams. Patient c/o hot flashes the last couple of days. LMP: Hysterectomy Presents for annual exam. She voices no complaints and is doing well. Denies any bowel or bladder problems. Denies any breast problems. She had a previous hysterectomy. Patient requests renewal of her antidepression medication. Patient has had hot flashes over the last several days but believes that she may be coming down with a sinus infection. OB History 2 Para 2 Term 2 0 AB 0 Living 2 SAB 0 IAB 0 Ectopic 0 Multiple 0 Live Births 2 Past Medical History: Diagnosis Date Allergic ? Arthritis 01/2022 Encounter for delivery without indication ([facility]) Delivery of by section Encounter for gynecological examination (general) (routine) without abnormal findings Pap test, as part of routine gynecological examination Encounter for gynecological examination (general) (routine) without abnormal findings 09/14/2019 Women's annual routine gynecological examination Headache Maybe 10 years ago Hypercholesteremia Hypoglycemia Migraine Years ago Other conditions influencing health status Menstruation Personal history of other complications of , childbirth and the puerperium History of Personal history of other malignant neoplasm of skin History of skin cancer Personal history of other medical treatment History of mammogram Psoriasis Past Surgical History: Procedure Laterality Date SECTION, LOW TRANSVERSE 12/04/2003 and 07/05/2007 ENDOMETRIAL ABLATION June 2017 and 2017 ENDOMETRIAL BIOPSY 05/20/2017 OTHER SURGICAL HISTORY 02/18/2019 Dilation and evacuation OTHER SURGICAL HISTORY 07/01/2019 section OTHER SURGICAL HISTORY 07/01/2019 Foot surgery OTHER SURGICAL HISTORY 07/01/2019 Laparoscopy OTHER SURGICAL HISTORY 09/17/2021 Skin lesion excision SINUS SURGERY ? TOTAL ABDOMINAL HYSTERECTOMY 07/02/2018 TUBAL LIGATION June 2017 WISDOM TOOTH EXTRACTION ? Past med hx and past surg hx reviewed and notable for: none Review of Systems: Constitutional: No fever or chills Respiratory: No shortness of breath, or cough Cardiovascular: No chest pain or syncope Breasts: No breast pain, no masses, no nipple discharge Gastrointestinal: No nausea, vomiting, or diarrhea, no abdominal pain Genitourinary: No dysuria or frequency Gynecology: Negative except as noted in history of present illness All other: All other systems reviewed and negative for complaint Objective BP 108/68 Ht 1.562 m (5' 1.5) Wt 106 kg (232 lb 9.6 oz) BMI 43.24 kg/m PHYSICAL EXAMINATION: Channel Sales Manager present for exam: Edwina PalmaMAREK Well-developed, well nourished, in no acute distress, alert and oriented x three, is pleasant and cooperative. HEENT: Clear. Pupils equal, round and reactive to light and accommodation. Extraocular muscles are intact. Oral mucosa pink without exudate. NECK: No lymphadenopathy, no thyromegaly. BREASTS: Symmetric, no palpable masses. No nipple discharge or retraction. LUNGS: Clear bilaterally. HEART: Regular rate and rhythm without murmurs. ABDOMEN: Normoactive bowel sounds, soft and nontender, no guarding or rebound tenderness, no CVA tenderness. EXTREMITIES: No clubbing, cyanosis or edema. NEUROLOGIC: Cranial nerves II-XII grossly intact. : Normal external female genitalia. Normal vulva and vagina. Normal urethral meatus, urethra and bladder. Noted surgical absence of the cervix and uterus. Well-healed vaginal cuff. Pap smear performed today. Actions performed during this visit include: - Clinical breast exam - Clinical pelvic exam - Orders Placed This Encounter Procedures BI mammo bilateral screening tomosynthesis Standing Status: Future Standing Expiration Date: 11/13/2024 Order Specific Question: Is the patient ? Answer: No Order Specific Question: Reason for exam: Answer: Screening Order Specific Question: Radiologist to Determine Optimal Study Answer: Yes Order Specific Question: Release result to [facility] Answer: Immediate [1] Order Specific Question: Is this exam part of a Research Study? If Yes, link this order to the research study Answer: No Problem List Items Addressed This Visit None Visit Diagnoses Depression, unspecified depression type - Primary Relevant Medications sertraline (Zoloft) 100 mg tablet Encounter for screening mammogram for malignant neoplasm of breast Relevant Orders BI mammo bilateral screening tomosynthesis Encounter for gynecological examination without abnormal finding Relevant Orders THINPREP PAP TEST Vaginal Pap smear Relevant Orders THINPREP PAP TEST Provider Impression: 1. Annual 2. Screening mammogram 3. History of depression We will renew the Zoloft. Thank you for coming to your annual exam. Your findings during the exam were normal. Please return for your next visit in 1 year. documented in this encounter [facility] Work Phone: 10-02-2023 History of Present illness Narrative Botox (200 ) unit vials [facility]# 6933-5436-75 Lot# [id number] Exp date: 09/04 Saline: ( 4 )ML USE ( 155 ) WASTE ( 45 ) documented in this encounter [facility] 10-02-2023 Procedure note Associated Ord er(s): PREEMPT Chemodenervation: Migraine Post-Procedure Diagnose(s): Intractable migraine without aura and without status migrainosus Botulinum Toxin Injections for Chronic Migraine Interim History Suraj Hawk presents for her 1st session of Botox for chronic migraines. PREEMPT Chemodenervation: Migraine Date/Time: 10/02/2023 1:45 PM Performed by: Jose Alvarez MD Authorized by: Jose Alvarez MD Comments: Description of Procedure: After discussing the risks and benefits of botulinum toxin, the patient provided informed consent. The patient was placed in the seated position on the examination table. The skin was prepped using alcohol pads. A 30-gauge, 0.5 inch-long needle was used with four 1 cc syringes. Concentration: Two 100 unit vials of botox were diluted into 4 ml of normal saline for a concentration of 50 units/1ml. A total of 155 units of botulinum toxin were used and injected as below (divided equally between left and right unless otherwise indicated): 20 units divided into 4 sites in the frontalis muscles 10 units divided into 2 sites in the card scraper muscles 5 units divided into 1 site in the procerus muscle 40 units divided into 8 sites in the temporalis muscles 30 units divided into 6 sites in the occipitalis muscles 30 units divided into 6 sites in the trapezius muscles 20 units divided into 4 sites in the cervical paraspinal muscles A total of 45 units were discarded as unavoidable waste. The patient tolerated the procedure well and left the clinic without any complications. [facility] 10-02-2023 Procedure note Associated Ord er(s): PREEMPT Chemodenervation: Migraine Post-Procedure Diagnose(s): Intractable migraine without aura and without status migrainosus Botulinum Toxin Injections for Chronic Migraine Interim History Suraj Hawk presents for her 1st session of Botox for chronic migraines. PREEMPT Chemodenervation: Migraine Date/Time: 10/02/2023 1:45 PM Performed by: Jose Alvarez MD Authorized by: Jose Alvarez MD Comments: Description of Procedure: After discussing the risks and benefits of botulinum toxin, the patient provided informed consent. The patient was placed in the seated position on the examination table. The skin was prepped using alcohol pads. A 30-gauge, 0.5 inch-long needle was used with four 1 cc syringes. Concentration: Two 100 unit vials of botox were diluted into 4 ml of normal saline for a concentration of 50 units/1ml. A total of 155 units of botulinum toxin were used and injected as below (divided equally between left and right unless otherwise indicated): 20 units divided into 4 sites in the frontalis muscles 10 units divided into 2 sites in the card scraper muscles 5 units divided into 1 site in the procerus muscle 40 units divided into 8 sites in the temporalis muscles 30 units divided into 6 sites in the occipitalis muscles 30 units divided into 6 sites in the trapezius muscles 20 units divided into 4 sites in the cervical paraspinal muscles A total of 45 units were discarded as unavoidable waste. The patient tolerated the procedure well and left the clinic without any complications. documented in this encounter [facility] 09-24-2023 History of Present illness Narrative Subjective Patient ID: Suraj Hawk is a 48 y.o. female. Chief Complaint Patient presents with Right Knee - Pain, Follow-up History of Present Illness Edwina is a pleasant 48-year-old female presenting today for right knee pain after walking on flat surface in parking lot 2 days ago. She denies any plant and twist motion, no injury, felt sudden pop in her knee with increased pain and swelling since. Patient is frustrated as she received Visco injections in July 2023 and felt she was getting great improvement until this occurred. She has resumed taking naproxen the last couple days and has not really experienced any relief. No bracing attempted. Prednisone helped some, has not restarted Naproxen Ice and hinged knee brace help- brace has ripped 60-70% improved Review of Systems Constitutional: no fever, no chills and not feeling tired. ENT: no recent cough or URI sx, no nosebleeds. Cardiovascular: no chest pain. Respiratory: no shortness of breath and no cough. Gastrointestinal: no abdominal pain, no nausea, no vomiting and no diarrhea. Integumentary: no rashes or skin wounds. Neurological: no headache. Psychiatric: no depression and no sleep disturbances. Endocrine: no muscle weakness and no muscle cramps. Hematologic/Lymphatic: no swollen glands and no tendency for easy bruising. MSK: + arthralgias and myalgias OBJECTIVE: ORTHO EXAM Physical Exam Constitutional: General appearance, normal. No acute distress noted. Musculoskeletal : Gait and station normal. Digits and nails normal. Muscle strength normal upper and lower extremity compartments within normal limits. Cardiovascular: Pulses WNL. Examination of extremities for edema or varicosities WNL. Respiratory: No acute distress, no breathing difficulties. Skin: Skin and subq tissue WNL Neurologic: Reflexes WNL. Psychiatric: Oriented to person, place and time. Mood and affect within normal limits. Knee Musculoskeletal Exam Gait Limp: right Inspection Right Erythema: none Effusion: none Edema: moderate Edema comment: Popliteal fossa, mild to medial aspect of the knee Ecchymosis: none Alignment: varus Left Left knee inspection is normal. Palpation Right Increased warmth: none Masses: none Crepitus: medial Tenderness: present Lateral joint line: mild Medial joint line: moderate Range of Motion Right Active extension: 0 Active flexion: 90 Strength Right Flexion is affected by pain. Instability Right Varus stress grade: normal Valgus stress grade: normal Zachariah: negative Neurovascular Right Pulses - DP: normal Dorsalis pedis: 2+ Capillary refill: brisk and well-perfused IMAGE RESULTS: === 02/21/23 === XR KNEE 1-2 VIEWS RIGHT Narrative & Impression Interpreted By: Josee Salguero, STUDY: XR KNEE RIGHT 1-2 VIEWS; 02/21/2023 8:14 am INDICATION: Signs/Symptoms:pain. COMPARISON: 08/28/2022 ACCESSION NUMBER(S): [id number] ORDERING CLINICIAN: ABRAM MONTES FINDINGS: Two views right knee Severe tricompartment productive degenerative changes. Degenerative changes predominantly involving the medial compartment. No fracture or dislocation. No osseous lesion. Small effusion. IMPRESSION Right knee Severe tricompartment productive degenerative changes. Degenerative changes predominantly involving the medial compartment. Signed by: Josee Salguero 02/21/2023 11:17 AM Dictation workstation: [id number] Assessment/Plan Problem List Items Addressed This Visit ICD-10-CM Primary osteoarthritis of right knee M17.11 Acute pain of right knee M25.561 DDx includes ruptured Gomez's cyst, MCL strain, meniscal injury documented in this encounter [facility] Work Phone: 2023 History of Present illness Narrative Subjective Patient ID: Suraj Hawk is a 47 y.o. female who presents for 1 mth ov. HPI July 14, 2023 For her GB she did see Dr Clay and will observe for now. For the obesity she is still creeping up. She is watching carbs. She is not ready to exercise due to OA in knee and has been getting gel injections. BMI 44. Labs were good except for the elevated liver enzymes and A1C of 5.7%. So would like to stop that. No Chest pain, Dyspnea, palpitations, edema, numbness, weakness, claudications, or double vision/ loss of vision. 2023 On the phentermine she is feeling with more full quickly. Appetite is down a bit. No Chest pain, Dyspnea, palpitations, numbness, weakness, claudications, or double vision/ loss of vision. She is down 242 to 235. Exercise not a lot yet. She has been getting gel in knees. CSA 07/14/23 UDS 07/14/23 as expected for medication profile I have personally reviewed the patients OARRS report. I have considered the risks of abuse, addiction and diversion. I believe it is clinically appropriate to continue to prescribe this medication. Review of Systems Objective BP 102/70 (BP Location: Right arm, Patient Position: Sitting) Pulse 96 Wt 107 kg (235 lb 11.2 oz) SpO2 99% BMI 43.82 kg/m Physical Exam Vitals reviewed. Constitutional: Appearance: Normal appearance. She is obese. HENT: Head: Normocephalic. Nose: Comments: On left has slit in skin at tip of nares. Not red or swollen. Eyes: Extraocular Movements: Extraocular movements intact. Conjunctiva/sclera: Conjunctivae normal. Pupils: Pupils are equal, round, and reactive to light. Neck: Vascular: No carotid bruit. Cardiovascular: Rate and Rhythm: Normal rate and regular rhythm. Heart sounds: No murmur heard. Pulmonary: Effort: Pulmonary effort is normal. Breath sounds: Normal breath sounds. Abdominal: General: Abdomen is flat. Bowel sounds are normal. Palpations: Abdomen is soft. Musculoskeletal: Cervical back: Normal range of motion and neck supple. No tenderness. Lymphadenopathy: Cervical: No cervical adenopathy. Skin: General: Skin is warm and dry. Neurological: Mental Status: She is alert and oriented to person, place, and time. Psychiatric: Mood and Affect: Mood normal. Behavior: Behavior normal. Thought Content: Thought content normal. Judgment: Judgment normal. Assessment/Plan Diagnoses and all orders for this visit: Non-healing skin lesion of nose Class 3 severe obesity due to excess calories without serious comorbidity with body mass index (BMI) of 40.0 to 44.9 in adult (Multi) - Follow Up In Primary Care - Established - Follow Up In Primary Care - Established; Future - phentermine 37.5 mg capsule; Take 1 capsule (37.5 mg) by mouth once daily in the morning. Take before meals. documented in this encounter [facility] Work Phone: 07-25-2023 Hospital Discharge instructions Melany Grayson RN - 07/25/2023 10:38 AM EDT Patient Instructions after a Colonoscopy The anesthetics, sedatives or narcotics which were given to you today will be acting in your body for the next 24 hours, so you might feel a little sleepy or groggy. This feeling should slowly wear off. Carefully read and follow the instructions. You received sedation today: - Do not drive or operate any machinery or power tools of any kind. - No alcoholic beverages today, not even beer or wine. - Do not make any important decisions or sign any legal documents. - No over the counter medications that contain alcohol or that may cause drowsiness. - Do not make any important decisions or sign any legal documents. - Make sure you have someone with you for first 24 hours. While it is common to experience mild to moderate abdominal distention, gas, or belching after your procedure, if any of these symptoms occur following discharge from the GI Lab or within one week of having your procedure, call the [facility] to be advised whether a visit to your nearest Urgent Care or Emergency Department is indicated. Take this paper with you if you go. - If you develop an allergic reaction to the medications that were given during your procedure such as difficulty breathing, rash, hives, severe nausea, vomiting or lightheadedness. - If you experience chest pain, shortness of breath, severe abdominal pain, fevers and chills. -If you develop signs and symptoms of bleeding such as blood in your spit, if your stools turn black, tarry, or bloody - If you have not urinated within 8 hours following your procedure. - If your IV site becomes painful, red, inflamed, or looks infected. Your physician recommends the additional following instructions: -You have a contact number available for emergencies. The signs and symptoms of potential delayed complications were discussed with you. You may return to normal activities tomorrow. -Resume your previous diet. -Continue your present medications. -We are waiting for your pathology results. -Your physician has recommended a repeat colonoscopy (date to be determined after pending pathology results are reviewed) for surveillance based on pathology results. -The findings and recommendations have been discussed with you. -The findings and recommendations were discussed with your family. - Please see Medication Reconciliation Form for new medication/medications prescribed. If you experience any problems or have any questions following discharge from the GI Lab, please call: Nurse Signature Date Patient/Responsible Green Party Signature Date documented in this encounter [facility] Work Phone: 07-25-2023 History and physical note History Of Present Illness Suraj Hawk is a 47 y.o. female presenting with colon cancer screening. Past Medical History Past Medical History: Diagnosis Date Allergic ? Arthritis 01/2022 Encounter for delivery without indication ([facility]) Delivery of by section Encounter for gynecological examination (general) (routine) without abnormal findings Pap test, as part of routine gynecological examination Encounter for gynecological examination (general) (routine) without abnormal findings 09/14/2019 Women's annual routine gynecological examination Headache Maybe 10 years ago Hypercholesteremia Hypoglycemia Other conditions influencing health status Menstruation Personal history of other complications of , childbirth and the puerperium History of Personal history of other malignant neoplasm of skin History of skin cancer Personal history of other medical treatment History of mammogram Psoriasis Surgical History Past Surgical History: Procedure Laterality Date SECTION, LOW TRANSVERSE 12/04/2003 and 07/05/2007 ENDOMETRIAL ABLATION June 2017 and novemeber 2018 HYSTERECTOMY June 2018 OTHER SURGICAL HISTORY 02/18/2019 Dilation and evacuation OTHER SURGICAL HISTORY 07/01/2019 section OTHER SURGICAL HISTORY 07/01/2019 Endometrial ablation OTHER SURGICAL HISTORY 07/01/2019 Endometrial biopsy OTHER SURGICAL HISTORY 07/01/2019 Foot surgery OTHER SURGICAL HISTORY 07/01/2019 Laparoscopy OTHER SURGICAL HISTORY 07/01/2019 Total hysterectomy abdominal OTHER SURGICAL HISTORY 09/17/2021 Skin lesion excision SINUS SURGERY ? TUBAL LIGATION June 2017 WISDOM TOOTH EXTRACTION ? Social History She reports that she has never smoked. She has never used smokeless tobacco. She reports that she does not currently use alcohol. She reports that she does not use drugs. Family History Family History Problem Relation Name Age of Onset Arthritis Mother Brittnee Irritable bowel syndrome Mother Brittnee COPD Father Golden Heart disease Father Golden Breast cancer Paternal Grandmother [place] Allergies Allergies Allergen Reactions Sulfa (Sulfonamide Antibiotics) Anxiety, Dizziness, Other, Palpitations and Shortness of breath Nickel Rash Review of Systems Pre-sedation Evaluation: ASA Classification - ASA 2 - Patient with mild systemic disease with no functional limitations Mallampati Score - II (hard and soft palate, upper portion of tonsils and uvula visible) Physical Exam Vitals and nursing note reviewed. Constitutional: Appearance: Normal appearance. HENT: Head: Normocephalic. Mouth/Throat: Mouth: Mucous membranes are moist. Pharynx: Oropharynx is clear. Eyes: Conjunctiva/sclera: Conjunctivae normal. Pupils: Pupils are equal, round, and reactive to light. Cardiovascular: Rate and Rhythm: Normal rate and regular rhythm. Pulses: Normal pulses. Heart sounds: Normal heart sounds. Pulmonary: Effort: Pulmonary effort is normal. Breath sounds: Normal breath sounds. Abdominal: General: Abdomen is flat. Bowel sounds are normal. Palpations: Abdomen is soft. Musculoskeletal: Cervical back: Normal range of motion and neck supple. Skin: General: Skin is warm and dry. Neurological: General: No focal deficit present. Mental Status: She is alert and oriented to person, place, and time. Psychiatric: Behavior: Behavior normal. Last Recorded Vitals Blood pressure 113/77, pulse 69, temperature 37 C (98.6 F), temperature source Temporal, resp. rate 18, height 1.562 m (5' 1.5), weight 106 kg (234 lb 9.6 oz), SpO2 96%. 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 (REFER TO PRESCRIPTION NOTES). azelastine-fluticasone (Dymista) 137-50 mcg/spray nasal spray INSTILL 1 SPRAY INTO EACH NOSTRIL EVERY 12 HOURS [id number] 160 mg/mL auto-injector Inject 320 mg under the skin every 8 (eight) weeks. loratadine (Claritin) 10 mg tablet Take 1 tablet (10 mg) by mouth once daily. montelukast (Singulair) 10 mg tablet Take 1 tablet (10 mg) by mouth once daily at bedtime. naproxen (Naprosyn) 500 mg tablet Take 1 tablet (500 mg) by mouth every 12 hours. 60 tablet 2 Nurtec ODT 75 mg tablet,disintegrating PLACE 1 TABLET ON OR UNDER THE TONGUE EVERY OTHER DAY FOR MIGRAINE PREVENTION phentermine 37.5 mg capsule Take 1 capsule (37.5 mg) by mouth once daily in the morning. Take before meals. 30 capsule 0 sertraline (Zoloft) 100 mg tablet Take 1 tablet (100 mg) by mouth once daily. SUMAtriptan succinate 4 mg/0.5 mL pen injector INJECT SUBCUTANEOUSLY NEEDED FOR HEADACHE, MAY REPEAT IN 2 HOURS. NO MORE THAN TWICE DAILY Current Facility-Administered Medications Medication Dose Route Frequency Provider Last Rate Last Admin lactated Ringer's infusion 20 mL/hr intravenous Continuous Leticia Jauregui DO 20 mL/hr at 07/25/23914 20 mL/hr at 07/25/23914 Leticia Jauregui DO [employer] [facility] Work Phone: 07-25-2023 History and physical note History Of Present Illness Suraj Hawk is a 47 y.o. female presenting with colon cancer screening. Past Medical History Past Medical History: Diagnosis Date Allergic ? Arthritis 01/2022 Encounter for delivery without indication ([facility]) Delivery of by section Encounter for gynecological examination (general) (routine) without abnormal findings Pap test, as part of routine gynecological examination Encounter for gynecological examination (general) (routine) without abnormal findings 09/14/2019 Women's annual routine gynecological examination Headache Maybe 10 years ago Hypercholesteremia Hypoglycemia Other conditions influencing health status Menstruation Personal history of other complications of , childbirth and the puerperium History of Personal history of other malignant neoplasm of skin History of skin cancer Personal history of other medical treatment History of mammogram Psoriasis Surgical History Past Surgical History: Procedure Laterality Date SECTION, LOW TRANSVERSE 12/04/2003 and 07/05/2007 ENDOMETRIAL ABLATION June 2017 and [email or web address] HYSTERECTOMY June 2018 OTHER SURGICAL HISTORY 02/18/2019 Dilation and evacuation OTHER SURGICAL HISTORY 07/01/2019 section OTHER SURGICAL HISTORY 07/01/2019 Endometrial ablation OTHER SURGICAL HISTORY 07/01/2019 Endometrial biopsy OTHER SURGICAL HISTORY 07/01/2019 Foot surgery OTHER SURGICAL HISTORY 07/01/2019 Laparoscopy OTHER SURGICAL HISTORY 07/01/2019 Total hysterectomy abdominal OTHER SURGICAL HISTORY 09/17/2021 Skin lesion excision SINUS SURGERY ? TUBAL LIGATION June 2017 WISDOM TOOTH EXTRACTION ? Social History She reports that she has never smoked. She has never used smokeless tobacco. She reports that she does not currently use alcohol. She reports that she does not use drugs. Family History Family History Problem Relation Name Age of Onset Arthritis Mother Brittnee Irritable bowel syndrome Mother Brittnee COPD Father Golden Heart disease Father Golden Breast cancer Paternal Grandmother [place] Allergies Allergies Allergen Reactions Sulfa (Sulfonamide Antibiotics) Anxiety, Dizziness, Other, Palpitations and Shortness of breath Nickel Rash Review of Systems Pre-sedation Evaluation: ASA Classification - ASA 2 - Patient with mild systemic disease with no functional limitations Mallampati Score - II (hard and soft palate, upper portion of tonsils and uvula visible) Physical Exam Vitals and nursing note reviewed. Constitutional: Appearance: Normal appearance. HENT: Head: Normocephalic. Mouth/Throat: Mouth: Mucous membranes are moist. Pharynx: Oropharynx is clear. Eyes: Conjunctiva/sclera: Conjunctivae normal. Pupils: Pupils are equal, round, and reactive to light. Cardiovascular: Rate and Rhythm: Normal rate and regular rhythm. Pulses: Normal pulses. Heart sounds: Normal heart sounds. Pulmonary: Effort: Pulmonary effort is normal. Breath sounds: Normal breath sounds. Abdominal: General: Abdomen is flat. Bowel sounds are normal. Palpations: Abdomen is soft. Musculoskeletal: Cervical back: Normal range of motion and neck supple. Skin: General: Skin is warm and dry. Neurological: General: No focal deficit present. Mental Status: She is alert and oriented to person, place, and time. Psychiatric: Behavior: Behavior normal. Last Recorded Vitals Blood pressure 113/77, pulse 69, temperature 37 C (98.6 F), temperature source Temporal, resp. rate 18, height 1.562 m (5' 1.5), weight 106 kg (234 lb 9.6 oz), SpO2 96%. 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 (REFER TO PRESCRIPTION NOTES). azelastine-fluticasone (Dymista) 137-50 mcg/spray nasal spray INSTILL 1 SPRAY INTO EACH NOSTRIL EVERY 12 HOURS [id number] 160 mg/mL auto-injector Inject 320 mg under the skin every 8 (eight) weeks. loratadine (Claritin) 10 mg tablet Take 1 tablet (10 mg) by mouth once daily. montelukast (Singulair) 10 mg tablet Take 1 tablet (10 mg) by mouth once daily at bedtime. naproxen (Naprosyn) 500 mg tablet Take 1 tablet (500 mg) by mouth every 12 hours. 60 tablet 2 Nurtec ODT 75 mg tablet,disintegrating PLACE 1 TABLET ON OR UNDER THE TONGUE EVERY OTHER DAY FOR MIGRAINE PREVENTION phentermine 37.5 mg capsule Take 1 capsule (37.5 mg) by mouth once daily in the morning. Take before meals. 30 capsule 0 sertraline (Zoloft) 100 mg tablet Take 1 tablet (100 mg) by mouth once daily. SUMAtriptan succinate 4 mg/0.5 mL pen injector INJECT SUBCUTANEOUSLY NEEDED FOR HEADACHE, MAY REPEAT IN 2 HOURS. NO MORE THAN TWICE DAILY Current Facility-Administered Medications Medication Dose Route Frequency Provider Last Rate Last Admin lactated Ringer's infusion 20 mL/hr intravenous Continuous Leticia Jauregui DO 20 mL/hr at 07/25/23 09 20 mL/hr at 07/25/2315 Leticia Jauregui DO documented in this encounter [facility] Work Phone: 07-23-2023 History of Present illness Narrative Associated Order(s): L Inj/Asp: R knee Subjective Patient ID: Suraj Hawk is a 47 y.o. female. Presents today for visco supplementation of Euflexxa Injection # 3/3 No chief complaint on file. History of Present Illness Edwina is a pleasant 47-year-old female presenting today for Euflexxa injection #3/3 of the right knee. Patient last saw Dr. Montes on 02/21/2023. Reports no change in symptoms since last evaluation, no new injuries. Prescription naproxen twice daily helps, home exercises helps slightly. Some relief after first and second injections No new injury, no adverse reactions Review of Systems Constitutional: no fever, no chills and not feeling tired. ENT: no recent cough or URI sx, no nosebleeds. Cardiovascular: no chest pain. Respiratory: no shortness of breath and no cough. Gastrointestinal: no abdominal pain, no nausea, no vomiting and no diarrhea. Integumentary: no rashes or skin wounds. Neurological: no headache. Psychiatric: no depression and no sleep disturbances. Endocrine: no muscle weakness and no muscle cramps. Hematologic/Lymphatic: no swollen glands and no tendency for easy bruising. MSK: + arthralgias and myalgias OBJECTIVE: ORTHO EXAM Physical Exam Constitutional: General appearance, normal. No acute distress noted. Musculoskeletal : Gait and station normal. Digits and nails normal. Muscle strength normal upper and lower extremity compartments within normal limits. Cardiovascular: Pulses WNL. Examination of extremities for edema or varicosities WNL. Respiratory: No acute distress, no breathing difficulties. Skin: Skin and subq tissue WNL Neurologic: Reflexes WNL. Psychiatric: Oriented to person, place and time. Mood and affect within normal limits. Knee Musculoskeletal Exam Gait Limp: right Inspection Right Erythema: none Effusion: none Edema: none Ecchymosis: none Alignment: varus Left Left knee inspection is normal. Palpation Right Increased warmth: none Masses: none Crepitus: medial Tenderness: present Lateral joint line: mild Medial joint line: moderate Range of Motion Right Active extension: 0 Active flexion: 110 Strength Right Flexion is affected by pain. Instability Right Varus stress grade: normal Valgus stress grade: normal Zachariah: negative Neurovascular Right Pulses - DP: normal Dorsalis pedis: 2+ Capillary refill: brisk and well-perfused IMAGE RESULTS: === 02/21/23 === XR KNEE 1-2 VIEWS RIGHT Narrative & Impression Interpreted By: Josee Salguero, STUDY: XR KNEE RIGHT 1-2 VIEWS; 02/21/2023 8:14 am INDICATION: Signs/Symptoms:pain. COMPARISON: 08/28/2022 ACCESSION NUMBER(S): [id number] ORDERING CLINICIAN: ABRAM MONTES FINDINGS: Two views right knee Severe tricompartment productive degenerative changes. Degenerative changes predominantly involving the medial compartment. No fracture or dislocation. No osseous lesion. Small effusion. IMPRESSION Right knee Severe tricompartment productive degenerative changes. Degenerative changes predominantly involving the medial compartment. Signed by: Josee Salguero 02/21/2023 11:17 AM Dictation workstation: [id number] L Inj/Asp: R knee on 07/23/2023 4:10 PM Indications: pain and joint swelling Details: 22 G needle, ultrasound-guided superolateral approach Medications: 20 mg sodium hyaluronate 10 mg/mL(mw 2.4 -3.6 million) Outcome: tolerated well, no immediate complications Patient wishes to proceed via verbal consent. Skin was prepped with Betadine, Vapocoolant spray and alcohol. Direct visualization using high-frequency linear probe of ultrasound was utilized to administer the injection of Euflexxa #3/3 to the R knee. Images were saved under MRN number into the PACS system. Bandaid to site post injection, no bleeding. Procedure, treatment alternatives, risks and benefits explained, specific risks discussed. Consent was given by the patient. Immediately prior to procedure a time out was called to verify the correct patient, procedure, equipment, family support coordinator and site/side marked as required. Patient was prepped and draped in the usual sterile fashion. Assessment/Plan Problem List Items Addressed This Visit ICD-10-CM Primary osteoarthritis of right knee - Primary M17.11 We reviewed conservative measures for knee OA symptom control. Patient to continue to take Tylenol per package directions, prescription naproxen diclofenac gel up to 4 times daily. We reviewed bracing and wrapping for aggravating activities. Reviewed light activity today, may resume normal activities and rest of the week. Plan for follow-up here in approximately 3 months, sooner for changes or concerns. Encouraged home exercise program to begin in approximately 1 week and advance as tolerated. Knee exercises from [facility] provided. Declines formal PT at this time. Patient in agreement with plan of care This note was generated using Zoodles software. It may contain errors in wording, punctuation or spelling. Other Visit Diagnoses Codes Chronic pain of right knee M25.561, G89.29 Relevant Orders Point of Care Ultrasound (Completed) documented in this encounter [facility] Work Phone: 07-23-2023 Evaluation + Plan note Associated Problem(s): Primary osteoarthritis of right knee We reviewed conservative measures for knee OA symptom control. Patient to continue to take Tylenol per package directions, prescription naproxen diclofenac gel up to 4 times daily. We reviewed bracing and wrapping for aggravating activities. Reviewed light activity today, may resume normal activities and rest of the week. Plan for follow-up here in approximately 3 months, sooner for changes or concerns. Encouraged home exercise program to begin in approximately 1 week and advance as tolerated. Knee exercises from [facility] provided. Declines formal PT at this time. Patient in agreement with plan of care This note was generated using Zoodles software. It may contain errors in wording, punctuation or spelling. [facility] Work Phone: 07-23-2023 Miscellaneous Notes Associated Problem(s): Primary osteoarthritis of right knee We reviewed conservative measures for knee OA symptom control. Patient to continue to take Tylenol per package directions, prescription naproxen diclofenac gel up to 4 times daily. We reviewed bracing and wrapping for aggravating activities. Reviewed light activity today, may resume normal activities and rest of the week. Plan for follow-up here in approximately 3 months, sooner for changes or concerns. Encouraged home exercise program to begin in approximately 1 week and advance as tolerated. Knee exercises from [facility] provided. Declines formal PT at this time. Patient in agreement with plan of care This note was generated using Zoodles software. It may contain errors in wording, punctuation or spelling. documented in this encounter [facility] Work Phone: 07-16-2023 History of Present illness Narrative Associated Order(s): L Inj/Asp: R knee Subjective Patient ID: Suraj Hawk is a 47 y.o. female. Presents today for visco supplementation of prior authorize Euflexxa Injection # 2/3 Chief Complaint Patient presents with Right Knee - Injections Patient is here for her 2nd of 3 Euflexxa injections into her right knee. History of Present Illness Edwina is a pleasant 47-year-old female presenting today for Euflexxa injection #2/3 of the right knee. Patient last saw Dr. Montes on 02/21/2023. Reports no change in symptoms since last evaluation, no new injuries. Prescription naproxen twice daily helps, home exercises helps slightly. Some relief after first injection last week No new injury or reactions Review of Systems Constitutional: no fever, no chills and not feeling tired. ENT: no recent cough or URI sx, no nosebleeds. Cardiovascular: no chest pain. Respiratory: no shortness of breath and no cough. Gastrointestinal: no abdominal pain, no nausea, no vomiting and no diarrhea. Integumentary: no rashes or skin wounds. Neurological: no headache. Psychiatric: no depression and no sleep disturbances. Endocrine: no muscle weakness and no muscle cramps. Hematologic/Lymphatic: no swollen glands and no tendency for easy bruising. MSK: + arthralgias and myalgias OBJECTIVE: ORTHO EXAM Physical Exam Constitutional: General appearance, normal. No acute distress noted. Musculoskeletal : Gait and station normal. Digits and nails normal. Muscle strength normal upper and lower extremity compartments within normal limits. Cardiovascular: Pulses WNL. Examination of extremities for edema or varicosities WNL. Respiratory: No acute distress, no breathing difficulties. Skin: Skin and subq tissue WNL Neurologic: Reflexes WNL. Psychiatric: Oriented to person, place and time. Mood and affect within normal limits. Knee Musculoskeletal Exam Gait Limp: right Inspection Right Erythema: none Effusion: none Edema: mild Ecchymosis: none Alignment: varus Left Left knee inspection is normal. Palpation Right Increased warmth: none Masses: none Crepitus: medial Tenderness: present Lateral joint line: mild Medial joint line: moderate Range of Motion Right Active extension: 5 Active flexion: 110 Strength Right Extension is affected by pain. Flexion is affected by pain. Instability Right Varus stress grade: normal Valgus stress grade: normal Zachariah: negative Neurovascular Right Pulses - DP: normal Dorsalis pedis: 2+ Capillary refill: brisk and well-perfused IMAGE RESULTS: === 02/21/23 === XR KNEE 1-2 VIEWS RIGHT Narrative & Impression Interpreted By: Josee Salguero, STUDY: XR KNEE RIGHT 1-2 VIEWS; 02/21/2023 8:14 am INDICATION: Signs/Symptoms:pain. COMPARISON: 08/28/2022 ACCESSION NUMBER(S): [id number] ORDERING CLINICIAN: ABRAM MONTES FINDINGS: Two views right knee Severe tricompartment productive degenerative changes. Degenerative changes predominantly involving the medial compartment. No fracture or dislocation. No osseous lesion. Small effusion. IMPRESSION Right knee Severe tricompartment productive degenerative changes. Degenerative changes predominantly involving the medial compartment. Signed by: Josee Salguero 02/21/2023 11:17 AM Dictation workstation: [id number] L Inj/Asp: R knee on 07/16/2023 8:56 AM Indications: pain and joint swelling Details: 22 G needle, ultrasound-guided superolateral approach Medications: 20 mg sodium hyaluronate 10 mg/mL(mw 2.4 -3.6 million) Outcome: tolerated well, no immediate complications Patient wishes to proceed via verbal consent. Skin was prepped with Betadine, Vapocoolant spray and alcohol. Direct visualization using high-frequency linear probe of ultrasound was utilized to administer the injection of Euflexxa No. 2/3 to the right knee. Images were saved under MRN number into the PACS system. Bandaid to site post injection, no bleeding. Procedure, treatment alternatives, risks and benefits explained, specific risks discussed. Consent was given by the patient. Immediately prior to procedure a time out was called to verify the correct patient, procedure, equipment, family support coordinator and site/side marked as required. Patient was prepped and draped in the usual sterile fashion. Assessment/Plan Problem List Items Addressed This Visit ICD-10-CM Primary osteoarthritis of right knee - Primary M17.11 We reviewed conservative measures for knee OA symptom control. Patient to continue to take Tylenol per package directions, prescription naproxen diclofenac gel up to 4 times daily. We reviewed bracing and wrapping for aggravating activities. Reviewed light activity today, may resume normal activities and rest of the week. Plan for follow-up here in 1 week for Euflexxa injection #3/3. Patient in agreement with plan of care This note was generated using Zoodles software. It may contain errors in wording, punctuation or spelling. Relevant Orders Follow Up In Orthopaedic Surgery Point of Care Ultrasound (Completed) documented in this encounter [facility] Work Phone: 07-16-2023 Evaluation + Plan note Associated Problem(s): Primary osteoarthritis of right knee We reviewed conservative measures for knee OA symptom control. Patient to continue to take Tylenol per package directions, prescription naproxen diclofenac gel up to 4 times daily. We reviewed bracing and wrapping for aggravating activities. Reviewed light activity today, may resume normal activities and rest of the week. Plan for follow-up here in 1 week for Euflexxa injection #3/3. Patient in agreement with plan of care This note was generated using Zoodles software. It may contain errors in wording, punctuation or spelling. [facility] Work Phone: 07-16-2023 Miscellaneous Notes Associated Problem(s): Primary osteoarthritis of right knee We reviewed conservative measures for knee OA symptom control. Patient to continue to take Tylenol per package directions, prescription naproxen diclofenac gel up to 4 times daily. We reviewed bracing and wrapping for aggravating activities. Reviewed light activity today, may resume normal activities and rest of the week. Plan for follow-up here in 1 week for Euflexxa injection #3/3. Patient in agreement with plan of care This note was generated using Zoodles software. It may contain errors in wording, punctuation or spelling. documented in this encounter [facility] Work Phone: 07-14-2023 History of Present illness Narrative Subjective Patient ID: Suraj Hawk is a 47 y.o. female who presents for Med Management. HPI For her GB she did see Dr Clay and will observe for now. For the obesity she is still creeping up. She is watching carbs. She is not ready to exercise due to OA in knee and has been getting gel injections. BMI 44. Labs were good except for the elevated liver enzymes and A1C of 5.7%. So would like to stop that. No Chest pain, Dyspnea, palpitations, edema, numbness, weakness, claudications, or double vision/ loss of vision. CSA 07/14/23 UDS 07/14/23 I have personally reviewed the patients OARRS report. I have considered the risks of abuse, addiction and diversion. I believe it is clinically appropriate to continue to prescribe this medication. Review of Systems Objective BP 118/78 (BP Location: Left arm, Patient Position: Sitting) Pulse 92 Ht 1.562 m (5' 1.5) Wt 110 kg (242 lb) SpO2 99% BMI 44.99 kg/m Physical Exam Constitutional: Appearance: Normal appearance. She is obese. Cardiovascular: Rate and Rhythm: Normal rate and regular rhythm. Heart sounds: No murmur heard. Pulmonary: Effort: Pulmonary effort is normal. No respiratory distress. Breath sounds: Normal breath sounds. No wheezing. Skin: General: Skin is warm and dry. Neurological: General: No focal deficit present. Mental Status: She is alert and oriented to person, place, and time. Psychiatric: Mood and Affect: Mood normal. Behavior: Behavior normal. Thought Content: Thought content normal. Judgment: Judgment normal. Assessment/Plan Diagnoses and all orders for this visit: Medication management - DRUG SCREEN,URINE Class 3 severe obesity due to excess calories without serious comorbidity with body mass index (BMI) of 40.0 to 44.9 in adult (Multi) - phentermine 37.5 mg capsule; Take 1 capsule (37.5 mg) by mouth once daily in the morning. Take before meals. Primary osteoarthritis of right knee Fatty liver documented in this encounter [facility] Work Phone: 07-09-2023 Evaluation + Plan note Associated Problem(s): Primary osteoarthritis of right knee We reviewed conservative measures for knee OA symptom control. Patient to continue to take Tylenol per package directions, prescription naproxen diclofenac gel up to 4 times daily. We reviewed bracing and wrapping for aggravating activities. Reviewed light activity today, may resume normal activities and rest of the week. Plan for follow-up here in 1 week for Euflexxa injection #2/3. Patient in agreement with plan of care This note was generated using Zoodles software. It may contain errors in wording, punctuation or spelling. [facility] Work Phone: 07-09-2023 Miscellaneous Notes Associated Problem(s): Primary osteoarthritis of right knee We reviewed conservative measures for knee OA symptom control. Patient to continue to take Tylenol per package directions, prescription naproxen diclofenac gel up to 4 times daily. We reviewed bracing and wrapping for aggravating activities. Reviewed light activity today, may resume normal activities and rest of the week. Plan for follow-up here in 1 week for Euflexxa injection #2/3. Patient in agreement with plan of care This note was generated using Zoodles software. It may contain errors in wording, punctuation or spelling. documented in this encounter [facility] Work Phone: 07-09-2023 History of Present illness Narrative Associated Order(s): L Inj/Asp: R knee Subjective Patient ID: Suraj Hawk is a 47 y.o. female. Presents today for visco supplementation of prior authorize Euflexxa Injection # 1/3 Chief Complaint: Injections of the Right Knee (Patient is here for her 1st of 3 Euflexxa injections into her right knee. ) History of Present Illness Edwina is a pleasant 47-year-old female presenting today for prior authorize Euflexxa injection of the right knee. Patient last saw Dr. Montes on 02/21/2023. Reports no change in symptoms since last evaluation, no new injuries. Prescription naproxen twice daily helps, home exercises helps slightly. Overall patient continues to never experience pain-free episodes. Last seen per this provider in May 2022 Review of Systems Constitutional: no fever, no chills and not feeling tired. ENT: no recent cough or URI sx, no nosebleeds. Cardiovascular: no chest pain. Respiratory: no shortness of breath and no cough. Gastrointestinal: no abdominal pain, no nausea, no vomiting and no diarrhea. Integumentary: no rashes or skin wounds. Neurological: no headache. Psychiatric: no depression and no sleep disturbances. Endocrine: no muscle weakness and no muscle cramps. Hematologic/Lymphatic: no swollen glands and no tendency for easy bruising. MSK: + arthralgias and myalgias OBJECTIVE: ORTHO EXAM Physical Exam Constitutional: General appearance, normal. No acute distress noted. Musculoskeletal : Gait and station normal. Digits and nails normal. Muscle strength normal upper and lower extremity compartments within normal limits. Cardiovascular: Pulses WNL. Examination of extremities for edema or varicosities WNL. Respiratory: No acute distress, no breathing difficulties. Skin: Skin and subq tissue WNL Neurologic: Reflexes WNL. Psychiatric: Oriented to person, place and time. Mood and affect within normal limits. Knee Musculoskeletal Exam Gait Limp: right Inspection Right Erythema: none Effusion: none Edema: mild Ecchymosis: none Alignment: varus Left Left knee inspection is normal. Palpation Right Increased warmth: none Masses: none Crepitus: medial Tenderness: present Lateral joint line: mild Medial joint line: moderate Range of Motion Right Active extension: 5 Active flexion: 110 Strength Right Extension is affected by pain. Flexion is affected by pain. Instability Right Varus stress grade: normal Valgus stress grade: normal Zachariah: negative Instability additional comments: Symptoms aggravated with medial Dana, medial Apley's, squat Neurovascular Right Pulses - DP: normal Dorsalis pedis: 2+ Capillary refill: brisk and well-perfused IMAGE RESULTS: === 02/21/23 === XR KNEE 1-2 VIEWS RIGHT Narrative & Impression Interpreted By: Josee Salguero, STUDY: XR KNEE RIGHT 1-2 VIEWS; 02/21/2023 8:14 am INDICATION: Signs/Symptoms:pain. COMPARISON: 08/28/2022 ACCESSION NUMBER(S): [id number] ORDERING CLINICIAN: ABRAM MONTES FINDINGS: Two views right knee Severe tricompartment productive degenerative changes. Degenerative changes predominantly involving the medial compartment. No fracture or dislocation. No osseous lesion. Small effusion. IMPRESSION Right knee Severe tricompartment productive degenerative changes. Degenerative changes predominantly involving the medial compartment. Signed by: Josee Salguero 02/21/2023 11:17 AM Dictation workstation: [id number] L Inj/Asp: R knee on 07/09/2023 3:45 PM Indications: pain and joint swelling Details: 22 G needle, ultrasound-guided superolateral approach Medications: 20 mg sodium hyaluronate 10 mg/mL(mw 2.4 -3.6 million) Outcome: tolerated well, no immediate complications Patient wishes to proceed via verbal consent. Skin was prepped with Betadine, Vapocoolant spray and alcohol. Direct visualization using high-frequency linear probe of ultrasound was utilized to administer the injection of Euflexxa No. 1/3. Images were saved under MRN number into the PACS system. Bandaid to site post injection, no bleeding. Procedure, treatment alternatives, risks and benefits explained, specific risks discussed. Consent was given by the patient. Immediately prior to procedure a time out was called to verify the correct patient, procedure, equipment, family support coordinator and site/side marked as required. Patient was prepped and draped in the usual sterile fashion. Assessment/Plan Problem List Items Addressed This Visit ICD-10-CM Primary osteoarthritis of right knee - Primary M17.11 We reviewed conservative measures for knee OA symptom control. Patient to continue to take Tylenol per package directions, prescription naproxen diclofenac gel up to 4 times daily. We reviewed bracing and wrapping for aggravating activities. Reviewed light activity today, may resume normal activities and rest of the week. Plan for follow-up here in 1 week for Euflexxa injection #2/3. Patient in agreement with plan of care This note was generated using Zoodles software. It may contain errors in wording, punctuation or spelling. Relevant Orders Point of Care Ultrasound (Completed) L Inj/Asp Other Visit Diagnoses Codes Chronic pain of right knee M25.561, G89.29 Relevant Orders Point of Care Ultrasound (Completed) documented in this encounter [facility] Work Phone: 06-27-2023 History of Present illness Narrative General Surgery Consultation Patient: Suraj Hawk : 1975 Date of Consultation: 06/28/23 Primary Care Provider: Bridger Edouard MD Referring Provider: Bridger Edouard MD Chief Complaint: Alternatives related to gallstones. History of Present Illness: Suraj Hawk is a 47 y.o. old female seen at the request of Bridger Edouard MD for evaluation of alternatives related to her incidentally diagnosed gallstones. She had bronchitis in February and had a CT of her chest which showed the gallstones. She does not really have any postprandial issues. She has some arthritis in her knees. She is concerned about passing small gallstones and the risks that entails. On reviewing her scans the stones did not look small and gravelly. She is interested in getting on a medication for weight reduction and this is in the process of obtaining this. Her BMI is 45. Medical History: Past Medical History: Diagnosis Date Allergic ? Arthritis 01/2022 Encounter for delivery without indication ([facility]) Delivery of by section Encounter for gynecological examination (general) (routine) without abnormal findings Pap test, as part of routine gynecological examination Encounter for gynecological examination (general) (routine) without abnormal findings 09/14/2019 Women's annual routine gynecological examination Headache Maybe 10 years ago Hypercholesteremia Hypoglycemia Other conditions influencing health status Menstruation Personal history of other complications of , childbirth and the puerperium History of Personal history of other malignant neoplasm of skin History of skin cancer Personal history of other medical treatment History of mammogram Surgical History: Past Surgical History: Procedure Laterality Date SECTION, LOW TRANSVERSE 12/04/2003 and 07/05/2007 ENDOMETRIAL ABLATION June 2017 and novemeber 2017 HYSTERECTOMY June 2018 OTHER SURGICAL HISTORY 02/18/2019 Dilation and evacuation OTHER SURGICAL HISTORY 07/01/2019 section OTHER SURGICAL HISTORY 07/01/2019 Endometrial ablation OTHER SURGICAL HISTORY 07/01/2019 Endometrial biopsy OTHER SURGICAL HISTORY 07/01/2019 Foot surgery OTHER SURGICAL HISTORY 07/01/2019 Laparoscopy OTHER SURGICAL HISTORY 07/01/2019 Total hysterectomy abdominal OTHER SURGICAL HISTORY 09/17/2021 Skin lesion excision SINUS SURGERY ? TUBAL LIGATION June 2017 WISDOM TOOTH EXTRACTION ? Home Medications: Prior to Admission medications Medication Sig Start Date End Date Taking? Authorizing Provider albuterol 90 mcg/actuation inhaler inhale 2 puffs by mouth and INTO THE LUNGS every 4 hours if neede... (REFER TO PRESCRIPTION NOTES). 12/15/22 Yes Historical Provider, azelastine-fluticasone (Dymista) 137-50 mcg/spray nasal spray INSTILL 1 SPRAY INTO EACH NOSTRIL EVERY 12 HOURS 11/27/22 Yes Historical Provider, bimekizumab-bkzx 160 mg/mL auto-injector Inject 320 mg under the skin every 8 (eight) weeks. Yes Historical Provider, loratadine (Claritin) 10 mg tablet Take 1 tablet (10 mg) by mouth once daily. Yes Historical Provider, montelukast (Singulair) 10 mg tablet Take 1 tablet (10 mg) by mouth once daily at bedtime. Yes Historical Provider, naproxen (Naprosyn) 500 mg tablet Take 1 tablet (500 mg) by mouth every 12 hours. 06/18/23 Yes [facility] mg tablet,disintegrating PLACE 1 TABLET ON OR UNDER THE TONGUE EVERY OTHER DAY FOR MIGRAINE PREVENTION Yes Historical Provider, sertraline (Zoloft) 100 mg tablet Take 1 tablet (100 mg) by mouth once daily. Yes Historical Provider, SUMAtriptan succinate 4 mg/0.5 mL pen injector INJECT SUBCUTANEOUSLY NEEDED FOR HEADACHE, MAY REPEAT IN 2 HOURS. NO MORE THAN TWICE DAILY 10/25/22 Yes Historical Provider, Allergies: Allergies Allergen Reactions Sulfa (Sulfonamide Antibiotics) Anxiety, Dizziness, Other, Palpitations and Shortness of breath Nickel Rash is allergic to sulfa (sulfonamide antibiotics) and nickel. Family History: Family History Problem Relation Name Age of Onset Arthritis Mother Brittnee Irritable bowel syndrome Mother Brittnee COPD Father Golden Heart disease Father Golden Breast cancer Paternal Grandmother Eladia Social History: Patient is a former smoker. She does not use drugs and drinks occasionally ROS: Constitutional: no fever, sweats, and chills Cardiovascular: No chest pain Respiratory: No cough or shortness of breath Gastrointestinal: There is a family history of colon cancer and patient has never had a colonoscopy although she has been scheduled to have one with Dr. Jauregui. Genitourinary: no dysuria Musculoskeletal: no weakness or swelling Integumentary: no rashes Neurological: no confusion Endocrine: no heat or cold intolerance Heme/Lymph: no easy bruising or bleeding Objective: BP 110/78 Pulse 76 Ht 1.549 m (5' 1) Wt 109 kg (241 lb 3.2 oz) BMI 45.57 kg/m Physical Exam: Constitutional: No acute distress, conversant, pleasant Neurologic: alert and oriented Psych: appropriate affect Ears, Nose, Mouth and Throat: mucus membranes moist Pulmonary: No labored breathing Cardiovascular: Regular rate and rhythm Abdomen: soft, non-distended, non-tender obese Musculoskeletal: Moves all extremities, no edema Skin: warm and dry Imaging: Interpreted By: Martir Mcdermott, STUDY: US GALLBLADDER; 06/23/2023 7:24 am INDICATION: Signs/Symptoms:gallstones. COMPARISON: None. ACCESSION NUMBER(S): [id number] ORDERING CLINICIAN: BRIDGER EDOUARD TECHNIQUE: Multiple images of the right upper quadrant were obtained. FINDINGS: LIVER: The liver measures 14.5 cm in longest axis. Also echogenic coarsened liver. GALLBLADDER: The gallbladder is partially distended with multiple gallstones. No gallbladder wall thickening or surrounding fluid. The gallbladder wall thickness is 2.0 mm. Sonographic Lynch's sign is negative. BILE DUCTS: No evidence of intra or extrahepatic biliary dilatation is identified; the common bile duct measures 4.0 mm. PANCREAS: Suboptimal visualization of pancreatic tail. The visualized portions appear unremarkable RIGHT KIDNEY: The right kidney measures 9.5 cm in length. The renal cortical echogenicity and thickness are within normal limit. No hydronephrosis or renal calculi are seen. IMPRESSION: Cholelithiasis without evidence of acute cholecystitis. Likely fatty infiltrated liver . MACRO: None Assessment and Plan: Suraj Hawk is a 47 y.o. old female with cholelithiasis. We discussed the fact she is asymptomatic and these were incidentally found. We discussed the fact people live their entire lives with gallstones and do not have any problems. We typically proceed with cholecystectomy if they develop signs and symptoms of biliary colic which she does not currently have. I have told her she could develop that she should return for exam. We also discussed that her stones are not visibly small that I feel is unlikely these stones would pass through the cystic duct however she could have smaller stones that are not seen. Her BMI is at 45 and I think there would be of benefit to her to proceed with weight reduction to get her BMI less than 40 which would help with her pain in her knee as well as if she were to require operation bolus for ambulation and ease of the procedure as she carries most of her weight in her abdomen. All questions were answered. I have told her I would be happy to reevaluate at any time. Offered her time follow-up for reexam.. Jaclyn Clay MD 06/28/2023 documented in this encounter [facility] Work Phone: 06-18-2023 History of Present illness Narrative Subjective Patient ID: Suraj Hawk is a 47 y.o. female who presents for evaluate (Arthritis in knee, discuss gallstones found on CT, discuss colonoscopy). HPI Sore in nose for a month. Neosporin not working. Pain in the right knee. Has had Naproxen, injections did not help, considering gel, needs TKR, has had PT.. Severe OA. Naproxen does help a lot and they want her to have us write for that. She feels she needs to get her children through school and she feels too young. Cannot get gel covered. No swelling. Brief stiffness. Will renew the Naproxen and get labs Gallstones on CT of chest when she had bronchitis in February. Had bad cough that is better. Does have pain in the shoulder blade area. Feels related to work. She is not noting a lot of bloating. No RUQ pain. Will get US Lung nodules since 2016. 4-5 mm. Colonoscopy since Father had a bunch of polyps. No cancer. But still high risk. Obesity - she is interested in losing weight. That affects her knee. But she cannot walk a lot for exercise. No Chest pain, Dyspnea, palpitations, numbness, edema, weakness, claudications, or double vision/ loss of vision. Will get labs and consider phentermine. Review of Systems Objective BP 104/72 (BP Location: Left arm, Patient Position: Sitting) Pulse 80 Ht 1.556 m (5' 1.25) Wt 109 kg (240 lb) SpO2 98% BMI 44.98 kg/m Physical Exam Vitals reviewed. Constitutional: General: She is not in acute distress. Appearance: Normal appearance. She is obese. HENT: Head: Normocephalic. Right Ear: Tympanic membrane normal. Left Ear: Tympanic membrane normal. Nose: Nose normal. Mouth/Throat: Pharynx: Oropharynx is clear. Eyes: Extraocular Movements: Extraocular movements intact. Conjunctiva/sclera: Conjunctivae normal. Pupils: Pupils are equal, round, and reactive to light. Neck: Vascular: No carotid bruit. Cardiovascular: Rate and Rhythm: Normal rate and regular rhythm. Pulses: Normal pulses. Heart sounds: Normal heart sounds. No murmur heard. Pulmonary: Effort: Pulmonary effort is normal. No respiratory distress. Breath sounds: Normal breath sounds. Abdominal: General: Abdomen is flat. Bowel sounds are normal. There is no distension. Palpations: Abdomen is soft. There is no mass. Tenderness: There is no abdominal tenderness. Musculoskeletal: General: Tenderness (right knee JL) present. Normal range of motion. Cervical back: Normal range of motion and neck supple. No tenderness. Comments: Laxity of MCL and LCL right Lymphadenopathy: Cervical: No cervical adenopathy. Skin: General: Skin is warm and dry. Findings: No rash. Neurological: General: No focal deficit present. Mental Status: She is alert and oriented to person, place, and time. Psychiatric: Mood and Affect: Mood normal. Thought Content: Thought content normal. Judgment: Judgment normal. Assessment/Plan Diagnoses and all orders for this visit: Class 3 severe obesity due to excess calories without serious comorbidity with body mass index (BMI) of 40.0 to 44.9 in adult (Multi) - Hemoglobin A1C; Future - TSH with reflex to Free T4 if abnormal; Future Primary osteoarthritis of right knee - naproxen (Naprosyn) 500 mg tablet; Take 1 tablet (500 mg) by mouth every 12 hours. Medication management - CBC; Future - Comprehensive Metabolic Panel; Future Gallstones - US gallbladder; Future Screen for colon cancer - Colonoscopy Screening; Average Risk Patient; Future documented in this encounter [facility] Work Phone: 04-25-2023 History of Present illness Narrative Suraj Hawk 47 y.o. female CHIEF COMPLAINT: Headache HISTORY OF PRESENT ILLNESS: Suraj follows on 04/25/2023. Our last visit was 10/25/2022. She is a 47-year-old with chronic migraine, hormonally related initially improved after she went off OC after hysterectomy. Topamax was tapered and she is doing well but her headaches returned. Stress may exacerbate them though they respond to Nurtec 75 mg Age at headache onset:chronic Family history of headache:son Duration/Location of headache:days Frequency of headache:one a month/1 or 2 a week/1-2 a month but if occur may be severe and does not have stat dose Aura: none Miss work/activities:++ Triggers:stress- son hit a deer Nausea/Vomiting/Photo/Sono:++ Neuro symptoms associated: dizzy and lightheaded OTC medication frequency: naproxen daily for knee Prescribed preventive meds: off Topamax Prescribed abortive meds: eletriptan/stat dose- has to stay home Nurtec lasts 2 days- has not been able to get through [facility] Evaluation(scans): 02/13/[address] pneumonia/stable bilateral pulmonary nodules Brain MRI normal 2018 Laboratory investigations: 04/07/2023 Cholesterol 230 LDL 157 REVIEW OF SYSTEMS: OARRS: Pauline-homatropine soln Sleep:hot flashes balck cohash Caffeine: Head trauma:60-80 Water consumption: Missed meals: Exercise:right knee pain- does not want knee replacement Depression:zoloft deployed in past /back home 2 children ALLERGIES: Allergies Allergen Reactions Nickel Rash Sulfa Antibiotics PAST MEDICAL HISTORY: Past Medical History: Diagnosis Date Migraine SOCIAL HISTORY: Social History Socioeconomic History Marital status: Tobacco Use Smoking status: Never Smokeless tobacco: Never Vaping Use Vaping status: Never Used Substance and Sexual Activity Alcohol use: Not Currently Comment: rarely Drug use: No Sexual activity: Yes Partners: Male control/protection: Hysterectomy Comment: I'm so just my . Other Topics Concern Occupational Exposure No Hobby Hazards No 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 MEDICATIONS PRIOR TO VISIT: Current Outpatient Medications: Coenzyme Q10 (COQ10 PO), Take by mouth., Disp: , Rfl: Loratadine (CLARITIN PO), take by mouth., Disp: , Rfl: Montelukast Sodium (SINGULAIR PO), take by mouth., Disp: , Rfl: naproxen 500 MG tablet, Take 1 tablet by mouth 2 times daily with meals., Disp: , Rfl: Rimegepant Sulfate (Nurtec) 75 MG Tab Dispersible, 1 po every other day for migraine prevention, Disp: 16 tablet, Rfl: 6 Sertraline HCl (ZOLOFT PO), Take 100 mg by mouth every evening. , Disp: , Rfl: Albuterol Sulfate (PROAIR HFA IN), Inhale as needed. (Patient not taking: Reported on 10/27/2020), Disp: , Rfl: Budesonide-Formoterol Fumarate (SYMBICORT IN), take by inhalation. (Patient not taking: Reported on 10/27/2020), Disp: , Rfl: eletriptan (Relpax) 40 MG tablet, 1 po prn migraine may repeat ONCE in 2 hours if necessary, Disp: 9 tablet, Rfl: 6 Levonorgestrel-Ethinyl Estrad (LILLOW PO), Take by mouth. (Patient not taking: Reported on 10/27/2020), Disp: , Rfl: Niacin, Antihyperlipidemic, (NIASPAN PO), take by mouth. (Patient not taking: Reported on 10/27/2020), Disp: , Rfl: Ondansetron 4 MG tablet, 1 po q 6 hours prn nausea ( migraine), Disp: 10 tablet, Rfl: 2 Rimegepant Sulfate (Nurtec) 75 MG Tab Dispersible, Take 75 mg by mouth as needed. 2 boxesLot # [id number] ex 11/04 (Patient not taking: Reported on 04/25/2023), Disp: 4 tablet, Rfl: 0 PHYSICAL EXAM: Blood pressure 110/68, pulse 93, resp. rate 18, height 1.549 m (5' 1), weight 108 kg (238 lb), SpO2 96%. Body mass index is 44.97 kg/m . 3 #weight loss in 2 hours Pupil assymetry OS 5 mm OD 4 mm and reactive no change Speech fluent Heart regular rate and rhythm No carotid bruits Gait and station normal ASSESSMENT/IMPRESSION: Problem List Items Addressed This Visit Cardiovascular Intractable migraine without aura and without status migrainosus - Primary PLAN: Magnesium 400 mg if able Consider Co Q10 Nurtec 75 mg every other day Eletriptan 40 mg as need for headaches if covered Consider Qulipta 60 mg if unable to obtain Nurtec Tosymra nasal spray sample Follow-up 6 months Alexandra Norton DO documented in this encounter [facility] 04-25-2023 Instructions Alexandra Norton DO - 04/25/2023 8:40 AM EDT Magnesium 400 mg at bed - if able If not able to take Magnesium -to CoQ 10 100 mg at bed Nurtec 75 mg every other day Eletriptan (Relpax) 40 mg as need for JORDAN + zofran If Nurtec 75 mg not covered try Qulipta Toysmra nasal spray sample- let me now if works-not on same day as eletriptan Follow up 6 months documented in this encounter [facility] 04-09-2023 History of Present illness Narrative OFFICE CONSULTATION NOTE [facility] [address] ([address]) [facility] [address] [facility] [id number] Physicians: Ayla Subramanian MD (Family); No ref. provider found (Referring) Subjective: Suraj Hawk is a 47 y.o. female seen in the office today for No chief complaint on file. Last visit was 01/01. She has hypercholesterolemia and a family history of premature coronary disease. She continues to work on implementing diet and exercise recommendations. Weight is up a bit. Unfortunately she is very busy with work and going to sports activities after work. She tends to get hot dogs at basketball games. She also has not really been on a good exercise routine. She states her knee is giving her problems there talk about replacement but she does not want to proceed with that. She does not have any symptoms of shortness of breath, sleeping issues or chest pain Vitals: There were no vitals taken for this visit. BP Readings from Last 3 Encounters: 01/09/22 108/73 10/29/18 104/70 10/06/17 (!) 113/57 Alert and oriented x3. Sclera nonicteric. Neck supple. Chest clear to auscultation bilaterally. Cardiovascular regular rate and rhythm , no carotid bruits, brisk carotid upstrokes, S1-S2 normal no murmurs, gallops, rubs. Abdomen is soft and nontender. No lower extremity edema. Assessment/Plan 04/07/2023 Our visits are to try to implement primary prevention through lifestyle modification. I reviewed the most recent cholesterol levels and there is an improvement compared to previous. Total cholesterol from 1 58-2 30, HDL 59-53, LDL 1 90-1 57 and triglycerides 101 so I think she is definitely making an effort to improve her diet. She was in the emergency room for bronchitis February 13 or and an ECG was done which I reviewed and was normal. Lab work was unremarkable. We did have a discussion regarding dietary and exercise recommendations. I would recommend aerobic exercise at least 3 hours a week and portion control, decrease carbohydrates, no junk food. Hopefully she will be able to implement these changes. Her ASCVD risk factor profile does not indicate need for statins. HLD (hyperlipidemia) Total cholesterol 230, LDL 157, triglyceride 101 CV risk calculator results as below. LDL cholesterol at this point is decreased below the 190 jaylin. Good HDL of 59 and normal triglycerides. Fasting sugars not suggest diabetes. Blood pressures are fine. Very slight improvement in cholesterol. EKG is normal we had a long discussion about diet about decreasing complex carbohydrates unfortunately she tends to have hypoglycemia and needs to snack. We talked about healthy snacks. We talked ways to lose weight with online programs and weight watchers she prefers to go it alone. 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 The 10-year ASCVD risk score (Jose Carlos OAKES, et al., 2019) is: 1.1% Values used to calculate the score: Age: 47 years Sex: Female Is Non- : No Diabetic: No Tobacco smoker: No Systolic Blood Pressure: 110 mmHg Is BP treated: No HDL Cholesterol: 53 mg/dL Total Cholesterol: 230 mg/dL Orders placed this encounter: No orders of the defined types were placed in this encounter. Follow Up Ordered: No follow-ups on file. Patient's Medications New Prescriptions No medications on file Previous Medications LORATADINE (CLARITIN) 10 MG TABLET Take 1 (one) tablet (10 mg total) by mouth daily . MONTELUKAST (SINGULAIR) 10 MG TABLET Take 1 (one) tablet (10 mg total) by mouth nightly . RIMEGEPANT SULFATE (NURTEC ODT ORAL) Take 75 mg by mouth PRN . SERTRALINE (ZOLOFT) 50 MG TABLET Take 2 (two) tablets (100 mg total) by mouth daily . Modified Medications No medications on file Discontinued Medications No medications on file Histories: Past Medical History: Diagnosis Date Environmental allergies High cholesterol Migraines Past Surgical History: Procedure Laterality Date ABLATION WITH PHENOL SECTION CYST REMOVAL FOOT SURGERY HYSTERECTOMY TUBAL LIGATION Family History Problem Relation Age of Onset Heart attack Father Social History Tobacco Use Smoking status: Never Smokeless tobacco: Never Vaping Use Vaping Use: Never used Substance Use Topics Alcohol use: Yes Comment: rarely Drug use: No Allergies Allergen Reactions Nickel Sulfa (Sulfonamide Antibiotics) Objective: Overview of Problems Addressed: No problems updated. No diagnosis found. Invalid input(s): CO2, MAG Jaclyn Meneses MD 04/07/2023 documented in this encounter [facility] 04-09-2023 Instructions Gurpreet Rossi RN - 04/09/2023 7:51 AM EST Suraj, it was a pleasure seeing you in clinic today! Here are some instructions from the cardiology team: Please call our team if you are experiencing any increased cardiac awareness including shortness of breath, swelling, heart palpitations, feeling faint, dizziness, lightheadedness, fatigue or chest discomfort. Thank you! How to contact your Care Team: Provider: Jaclyn Meneses MD ____ Nurse: Gurpreet Rossi RN ____ ____ ____ In case of an emergency please call 911. REFILLS: When in need for refills please call your care team or the office at [phone]. Please include medication name, pharmacy name, and specify 30-day or 90-day supply. Please check with your pharmacy within 24 hours of request for your refill. You must follow up as directed to continue current refills. Thank you documented in this encounter [facility] 04-07-2023 History of Present illness Narrative Scanned document documented in this encounter [facility] 03-31-2023 History of Present illness Narrative Faxed lab order to [facility] lab at [phone]. Update patient via voice message. documented in this encounter [facility] 03-14-2023 History of Present illness Narrative Subjective Patient ID: Suraj Hawk is a 47 y.o. female who presents for Cough (Congestion, body aches, fever, decrease in appetite). Cough Has been sick for a day. Pretty sick today Had injection for Psoriasis 2 days ago Now achy all over, SN, RN, Chest congestion and tightness Fever to 100.[address] and cough Wheezing not noted Exposure not noted with family but goes to a lot of basketball games Negative Covid. Review of Systems Respiratory: Positive for cough. Objective BP 110/64 (BP Location: Left arm, Patient Position: Sitting) Pulse 108 Temp 38 C (100.4 F) (Oral) Ht 1.562 m (5' 1.5) Wt 107 kg (235 lb) SpO2 96% BMI 43.68 kg/m Physical Exam Constitutional: Appearance: Normal appearance. HENT: Head: Normocephalic. Right Ear: Tympanic membrane, ear canal and external ear normal. Left Ear: Tympanic membrane, ear canal and external ear normal. Nose: Nose normal. Mouth/Throat: Mouth: Mucous membranes are moist. Pharynx: Oropharynx is clear. Eyes: Extraocular Movements: Extraocular movements intact. Conjunctiva/sclera: Conjunctivae normal. Pupils: Pupils are equal, round, and reactive to light. Cardiovascular: Rate and Rhythm: Normal rate and regular rhythm. Pulmonary: Effort: Pulmonary effort is normal. Breath sounds: Normal breath sounds. Musculoskeletal: Cervical back: Normal range of motion and neck supple. Skin: General: Skin is warm and dry. Neurological: General: No focal deficit present. Mental Status: She is alert and oriented to person, place, and time. Psychiatric: Mood and Affect: Mood normal. Behavior: Behavior normal. Thought Content: Thought content normal. Judgment: Judgment normal. Assessment/Plan Diagnoses and all orders for this visit: Viral URI with cough - Sars-CoV-2 and Influenza A/B PCR; Future Sounds very much like flu so will treat that. But need to consider reaction to the injection documented in this encounter [facility] Work Phone: 02-21-2023 History of Present illness Narrative Images from the original note were not included. History of Present Illness No chief complaint on file. Patient with known osteoarthritis of the side: right knee who presents today for repeat evaluation. The patient notes worsening knee pain. The patient notes stable mechanical symptoms. The patient has tried the following modalities NSAIDS and Injections. Past Medical History: Diagnosis Date Encounter for delivery without indication Delivery of by section Encounter for gynecological examination (general) (routine) without abnormal findings Pap test, as part of routine gynecological examination Encounter for gynecological examination (general) (routine) without abnormal findings 09/14/2019 Women's annual routine gynecological examination Hypercholesteremia Hypoglycemia Other conditions influencing health status Menstruation Personal history of other complications of , childbirth and the puerperium History of Personal history of other malignant neoplasm of skin History of skin cancer Personal history of other medical treatment History of mammogram Medication Documentation Review Audit Reviewed by Awilda Julien LPN (Licensed Nurse) on 01/17/23 at 0835 Medication Order Taking? Sig Documenting Provider Last Dose Status albuterol 90 mcg/actuation inhaler [id number] No inhale 2 puffs by mouth and INTO THE LUNGS every 4 hours if neede... (REFER TO PRESCRIPTION NOTES). Historical ProviderMD Not Taking Active amoxicillin-pot clavulanate (Augmentin) 875-125 mg tablet [id number] No take 1 tablet by mouth with food and WITH A FULL GLASS OF WATER e... (REFER TO PRESCRIPTION NOTES). Historical ProviderMD Not Taking Active apremilast (Otezla) 30 mg tablet [id number] No Take by mouth. Historical ProviderMD Not Taking Active azelastine-fluticasone (Dymista) 137-50 mcg/spray nasal spray [id number] Yes INSTILL 1 SPRAY INTO EACH NOSTRIL EVERY 12 HOURS Yousuf Olivier MD Taking Active azithromycin (Zithromax) 250 mg tablet [id number] No take 2 tablets by mouth TODAY then take 1 tablet DAILY FOR 4 DAYS Yousuf Olivier MD Not Taking Active BD Tuberculin Syringe 1 mL 27 x 1/2 syringe [id number] Yes USE 2 SYRINGES ONCE A WEEK DIRECTED - 1 SYRINGE FOR EACH VIAL Yousuf Olivier MD Taking Active benzonatate (Tessalon) 100 mg capsule [id number] No Take 1 capsule (100 mg) by mouth 3 times a day as needed. Yousuf Olivier MD Not Taking Active budesonide/formoterol fumarate (SYMBICORT INHL) [id number] No Inhale. Yousuf Olivier MD Not Taking Active cetirizine (Allergy Relief, cetirizine,) 1 mg/mL syrup [id number] No Take by mouth. Yousuf Olivier MD Not Taking Active ciprofloxacin (Ciloxan) 0.3 % ophthalmic solution [id number] No instill 1 drop into both eyes every 2 hours while awake for 1 day... (REFER TO PRESCRIPTION NOTES). Yousuf Olivier MD Not Taking Active co-enzyme Q-10 30 mg capsule [id number] Yes Take by mouth. Yousuf Olivier MD Taking Active diclofenac (Voltaren) 50 mg EC tablet [id number] No Take by mouth. Yousuf Olivier MD Not Taking Active diclofenac sodium (Voltaren) 1 % gel gel [id number] No Apply to affected area up to 4 times daily 2 grams. Yousuf Olivier MD Not Taking Active eletriptan (Relpax) 40 mg tablet [id number] No Take by mouth. Yousuf Olivier MD Not Taking Active ixekizumab (Taltz Autoinjector) 80 mg/mL injection [id number] No Inject under the skin. Yousuf Olivier MD Not Taking Active ketorolac (Toradol) 10 mg tablet [id number] No Take 1 tablet (10 mg) by mouth every 6 hours if needed. Yousuf Olivier MD Not Taking Active levonorgestreL-ethinyl estrad (Nordette) 0.15-0.03 mg tablet [id number] No Take by mouth. Yousuf Olivier MD Not Taking Active loratadine (Claritin Liqui-Gel) 10 mg capsule [id number] No Take by mouth. Yousuf Olivier MD Not Taking Active loratadine (Claritin) 10 mg tablet [id number] Yes Take 1 tablet (10 mg) by mouth once daily. Yousuf Olivier MD Taking Active loratadine 10 mg capsule [id number] No Take by mouth. Yousuf Olivier MD Not Taking Active montelukast (Singulair) 10 mg tablet [id number] Yes Take 1 tablet (10 mg) by mouth once daily at bedtime. Yousuf Olivier MD Taking Active montelukast (Singulair) 4 mg chewable tablet [id number] No Chew. Yousuf Olivier MD Not Taking Active naproxen (Naprosyn) 500 mg tablet [id number] Yes Take 1 tablet (500 mg) by mouth every 12 hours. Yousuf Olivier MD Taking Active naproxen sodium (Anaprox) 550 mg tablet [id number] No Take by mouth. Yousuf Olivier MD Not Taking Active niacin (Niaspan Extended-Release) 1,000 mg ER tablet [id number] No Take by mouth. Yousuf Olivier MD Not Taking Active Nurtec ODT 75 mg tablet,disintegrating [id number] No PLACE 1 TABLET ON OR UNDER THE TONGUE EVERY OTHER DAY FOR MIGRAINE PREVENTION Yousuf Olivier MD Not Taking Active predniSONE (Deltasone) 10 mg tablet [id number] No TAKE 4 TABLETS BY MOUTH DAILY FOR 3 DAYS. 3 TABLETS DAILY FOR 3 D... (REFER TO PRESCRIPTION NOTES). Yousuf Olivier MD Not Taking Active sertraline (Zoloft) 100 mg tablet [id number] Yes Take 1 tablet (100 mg) by mouth once daily. Yousuf Olivier MD Taking Active sertraline (Zoloft) 25 mg tablet [id number] No Take 4 tablets (100 mg) by mouth once every 24 hours. Yousuf Olivier MD Not Taking Active SUMAtriptan succinate 4 mg/0.5 mL pen injector [id number] No INJECT SUBCUTANEOUSLY NEEDED FOR HEADACHE, MAY REPEAT IN 2 HOURS. NO MORE THAN TWICE DAILY Yousuf Olivier MD Not Taking Active Allergies Allergen Reactions Sulfa (Sulfonamide Antibiotics) Anxiety, Dizziness, Other, Palpitations and Shortness of breath Nickel Rash Social History Socioeconomic History Marital status: Spouse name: Not on file Number of children: Not on file Years of education: Not on file Highest education level: Not on file Occupational History Not on file Tobacco Use Smoking status: Former Types: Cigarettes Smokeless tobacco: Never Vaping Use Vaping Use: Never used Substance and Sexual Activity Alcohol use: Not Currently Drug use: Never Sexual activity: Not on file Other Topics Concern Not on file Social History Narrative Not on file Social Determinants of Health Financial Resource Strain: Not on file Food Insecurity: Not on file Transportation Needs: Not on file Physical Activity: Not on file Stress: Not on file Social Connections: Not on file Intimate Partner Violence: Not on file Housing Stability: Not on file Past Surgical History: Procedure Laterality Date OTHER SURGICAL HISTORY 02/18/2019 Dilation and evacuation OTHER SURGICAL HISTORY 07/01/2019 section OTHER SURGICAL HISTORY 07/01/2019 Endometrial ablation OTHER SURGICAL HISTORY 07/01/2019 Endometrial biopsy OTHER SURGICAL HISTORY 07/01/2019 Foot surgery OTHER SURGICAL HISTORY 07/01/2019 Laparoscopy OTHER SURGICAL HISTORY 07/01/2019 Total hysterectomy abdominal OTHER SURGICAL HISTORY 09/17/2021 Skin lesion excision Review of Systems GENERAL: Negative for malaise, significant weight loss, fever MUSCULOSKELETAL: see HPI NEURO: Negative BMI 45 Exam side: right Knee: Skin healthy and intact No gross swelling or ecchymosis Alignment: normal Effusion: mild ROM: 0-120 degrees Crepitus with range of motion No pain with internal rotation of the hip Tenderness to palpation: medial Pain with patellar compression: Yes No laxity to valgus stress No laxity to varus stress Negative Zachariah s test Negative posterior drawer test positive Dana s test Neurovascular exam normal distally 2+ DP pulse and good cap refill Imaging: None today Assessment Patient with known osteoarthritis of the side: right knee Plan We reviewed an evidence-based approach to OA of the knee. We discussed past treatments as well options for future treatment. Physical therapy, NSAIDS, Injections, and bracing I will refill her naproxen. Submit for viscoelastic supplement Return upon approval for injections. If the injections are done by one of my colleagues here locally then I would see the patient 2 months after they were done. Questions answered documented in this encounter [facility] Work Phone: 02-12-2023 Emergency department Note HPI Chief Complaint Patient presents with Cough Pt was seen last Friday for her cough and she stated the cough has progressed. 47-year-old female presents with continued coughing. Patient was seen here 5 days ago and started on Augmentin for an upper respiratory tract infection and states she has not gotten any better. Patient at that time tested negative for COVID influenza and RSV. Patient is complaining of some slight exertional dyspnea with symptoms. Cough is nonproductive. I did go over all the studies with the patient. She will be given Solu-Medrol 125 mg IM. History provided by: Patient [place] Coma Scale Score: 15 Patient History Past Medical History: Diagnosis Date Encounter for delivery without indication Delivery of by section Encounter for gynecological examination (general) (routine) without abnormal findings Pap test, as part of routine gynecological examination Encounter for gynecological examination (general) (routine) without abnormal findings 09/14/2019 Women's annual routine gynecological examination Hypercholesteremia Hypoglycemia Other conditions influencing health status Menstruation Personal history of other complications of , childbirth and the puerperium History of Personal history of other malignant neoplasm of skin History of skin cancer Personal history of other medical treatment History of mammogram Past Surgical History: Procedure Laterality Date OTHER SURGICAL HISTORY 02/18/2019 Dilation and evacuation OTHER SURGICAL HISTORY 07/01/2019 section OTHER SURGICAL HISTORY 07/01/2019 Endometrial ablation OTHER SURGICAL HISTORY 07/01/2019 Endometrial biopsy OTHER SURGICAL HISTORY 07/01/2019 Foot surgery OTHER SURGICAL HISTORY 07/01/2019 Laparoscopy OTHER SURGICAL HISTORY 07/01/2019 Total hysterectomy abdominal OTHER SURGICAL HISTORY 09/17/2021 Skin lesion excision No family history on file. Social History Tobacco Use Smoking status: Former Types: Cigarettes Smokeless tobacco: Never Vaping Use Vaping Use: Never used Substance Use Topics Alcohol use: Not Currently Drug use: Never Physical Exam ED Triage Vitals [02/12/23 2245] Temp Heart Rate Resp BP 36.2 C (97.2 F) 85 20 140/73 SpO2 Temp Source Heart Rate Source Patient Position 97 % Tympanic Monitor Sitting BP Location FiO2 (%) Left arm -- Physical Exam Vitals and nursing note reviewed. Constitutional: General: She is not in acute distress. Appearance: She is well-developed. HENT: Head: Normocephalic and atraumatic. Eyes: Conjunctiva/sclera: Conjunctivae normal. Cardiovascular: Rate and Rhythm: Normal rate and regular rhythm. Heart sounds: No murmur heard. Pulmonary: Effort: Pulmonary effort is normal. No respiratory distress. Breath sounds: Normal breath sounds. Comments: Coarse breath sounds in right upper and lower lobes. Abdominal: Palpations: Abdomen is soft. Tenderness: There is no abdominal tenderness. Musculoskeletal: General: No swelling. Cervical back: Neck supple. Skin: General: Skin is warm and dry. Capillary Refill: Capillary refill takes less than 2 seconds. Neurological: Mental Status: She is alert. Psychiatric: Mood and Affect: Mood normal. ED Course & MDM ED Course as of 02/13/23238Feb 12, 2023 2326 Twelve-lead EKG interpreted by myself at 2305 1 normal sinus rhythm at 75 2 normal axis 3 no ectopy [MS] ED Course User Index [MS] Jaylin Ayala DO Diagnoses as of 02/13/23238 Acute bronchitis, unspecified organism CT chest wo IV contrast Final Result No evidence of pneumonia. Stable bilateral pulmonary nodules. Cholelithiasis. MACRO: None Signed by: Rodney Cabrera 02/13/2023 2:25 AM Dictation workstation: [id number] XR chest 2 views Final Result 1. No acute cardiopulmonary process. 2. Unchanged right upper lobe pulmonary nodule. Signed by: Merlin Tapia 02/13/2023 12:25 AM Dictation workstation: [id number] Medical Decision Making Take medication as prescribed. Discontinue Augmentin. Follow-up with family medical doctor 1 to 2 days if no improvement return to ED. Procedure Procedures Jaylin Ayala DO 02/13/23238 documented in this encounter [facility] Work Phone: 02-12-2023 Physician Emergency department Note HPI Chief Complaint Patient presents with Cough Pt was seen last Friday for her cough and she stated the cough has progressed. 47-year-old female presents with continued coughing. Patient was seen here 5 days ago and started on Augmentin for an upper respiratory tract infection and states she has not gotten any better. Patient at that time tested negative for COVID influenza and RSV. Patient is complaining of some slight exertional dyspnea with symptoms. Cough is nonproductive. I did go over all the studies with the patient. She will be given Solu-Medrol 125 mg IM. History provided by: Patient [place] Coma Scale Score: 15 Patient History Past Medical History: Diagnosis Date Encounter for delivery without indication Delivery of by section Encounter for gynecological examination (general) (routine) without abnormal findings Pap test, as part of routine gynecological examination Encounter for gynecological examination (general) (routine) without abnormal findings 09/14/2019 Women's annual routine gynecological examination Hypercholesteremia Hypoglycemia Other conditions influencing health status Menstruation Personal history of other complications of , childbirth and the puerperium History of Personal history of other malignant neoplasm of skin History of skin cancer Personal history of other medical treatment History of mammogram Past Surgical History: Procedure Laterality Date OTHER SURGICAL HISTORY 02/18/2019 Dilation and evacuation OTHER SURGICAL HISTORY 07/01/2019 section OTHER SURGICAL HISTORY 07/01/2019 Endometrial ablation OTHER SURGICAL HISTORY 07/01/2019 Endometrial biopsy OTHER SURGICAL HISTORY 07/01/2019 Foot surgery OTHER SURGICAL HISTORY 07/01/2019 Laparoscopy OTHER SURGICAL HISTORY 07/01/2019 Total hysterectomy abdominal OTHER SURGICAL HISTORY 09/17/2021 Skin lesion excision No family history on file. Social History Tobacco Use Smoking status: Former Types: Cigarettes Smokeless tobacco: Never Vaping Use Vaping Use: Never used Substance Use Topics Alcohol use: Not Currently Drug use: Never Physical Exam ED Triage Vitals [02/12/23 2245] Temp Heart Rate Resp BP 36.2 C (97.2 F) 85 20 140/73 SpO2 Temp Source Heart Rate Source Patient Position 97 % Tympanic Monitor Sitting BP Location FiO2 (%) Left arm -- Physical Exam Vitals and nursing note reviewed. Constitutional: General: She is not in acute distress. Appearance: She is well-developed. HENT: Head: Normocephalic and atraumatic. Eyes: Conjunctiva/sclera: Conjunctivae normal. Cardiovascular: Rate and Rhythm: Normal rate and regular rhythm. Heart sounds: No murmur heard. Pulmonary: Effort: Pulmonary effort is normal. No respiratory distress. Breath sounds: Normal breath sounds. Comments: Coarse breath sounds in right upper and lower lobes. Abdominal: Palpations: Abdomen is soft. Tenderness: There is no abdominal tenderness. Musculoskeletal: General: No swelling. Cervical back: Neck supple. Skin: General: Skin is warm and dry. Capillary Refill: Capillary refill takes less than 2 seconds. Neurological: Mental Status: She is alert. Psychiatric: Mood and Affect: Mood normal. ED Course & MDM ED Course as of 02/13/23238Feb 12, 2023 2326 Twelve-lead EKG interpreted by myself at 2305 1 normal sinus rhythm at 75 2 normal axis 3 no ectopy [MS] ED Course User Index [MS] Jaylin Ayala DO Diagnoses as of 02/13/23238 Acute bronchitis, unspecified organism CT chest wo IV contrast Final Result No evidence of pneumonia. Stable bilateral pulmonary nodules. Cholelithiasis. MACRO: None Signed by: Rodney Cabrera 02/13/2023 2:25 AM Dictation workstation: [id number] XR chest 2 views Final Result 1. No acute cardiopulmonary process. 2. Unchanged right upper lobe pulmonary nodule. Signed by: Merlin Tapia 02/13/2023 12:25 AM Dictation workstation: [id number] Medical Decision Making Take medication as prescribed. Discontinue Augmentin. Follow-up with family medical doctor 1 to 2 days if no improvement return to ED. Procedure Procedures Jaylin Ayala DO 02/13/23238 [facility] Work Phone: 02-08-2023 Emergency department Note Patient is a 47-year-old female presents with cough cold and flu type symptoms for about 10 days. Reports some sinus congestion, body aches, cough, nausea. Last thing she took was some Benadryl last night. Review of Systems Physical Exam Vitals and nursing note reviewed. Constitutional: General: She is not in acute distress. Appearance: She is well-developed. HENT: Head: Normocephalic and atraumatic. Eyes: Conjunctiva/sclera: Conjunctivae normal. Cardiovascular: Rate and Rhythm: Normal rate and regular rhythm. Heart sounds: No murmur heard. Pulmonary: Effort: Pulmonary effort is normal. No respiratory distress. Breath sounds: Normal breath sounds. Abdominal: Palpations: Abdomen is soft. Tenderness: There is no abdominal tenderness. Musculoskeletal: General: No swelling. Cervical back: Neck supple. Skin: General: Skin is warm and dry. Capillary Refill: Capillary refill takes less than 2 seconds. Neurological: Mental Status: She is alert. Psychiatric: Mood and Affect: Mood normal. Labs Reviewed SARS-COV-2 PCR, SCREEN ASYMPTOMATIC - Normal Result Value Coronavirus 2019, PCR Not Detected Narrative: This assay has received FDA Emergency Use Authorization (EUA) and is only authorized for the duration of time that circumstances exist to justify the authorization of the emergency use of in vitro diagnostic tests for the detection of SARS-CoV-2 virus and/or diagnosis of COVID-19 infection under section 564(b)(1) of the Act, 21 U.S.C. 360bbb-3(b)(1). This assay is an in vitro diagnostic nucleic acid amplification test for the qualitative detection of SARS-CoV-2 from nasopharyngeal specimens and has been validated for use at [facility]. Negative results do not preclude COVID-19 infections and should not be used as the sole basis for diagnosis, treatment, or other management decisions. RSV PCR - Normal RSV PCR Not Detected Narrative: This assay is an FDA-cleared, in vitro diagnostic nucleic acid amplification test for the detection of RSV from nasopharyngeal specimens, and has been validated for use at [facility]. Negative results do not preclude RSV infections, and should not be used as the sole basis for diagnosis, treatment, or other management decisions. If Influenza A/B and RSV PCR results are negative, testing for Parainfluenza virus, Adenovirus and Metapneumovirus is routinely performed for pediatric oncology and intensive care inpatients at [facility], and is available on other patients by placing an add-on request. INFLUENZA A AND B PCR - Normal Flu A Result Not Detected Flu B Result Not Detected Narrative: This assay is an in vitro diagnostic multiplex nucleic acid amplification test for the detection and discrimination of Influenza A & B from nasopharyngeal specimens, and has been validated for use at [facility]. Negative results do not preclude Influenza A/B infections, and should not be used as the sole basis for diagnosis, treatment, or other management decisions. If Influenza A/B and RSV PCR results are negative, testing for Parainfluenza virus, Adenovirus and Metapneumovirus is routinely performed for [facility] pediatric oncology and intensive care inpatients, and is available on other patients by placing an add-on request. No orders to display Procedures Medical Decision Making Patient's lungs are clear. O2 saturation is stable. Swabs for COVID, influenza, and RSV are negative. Will prescribe oral Augmentin Diagnoses as of 02/08/23634 URI, acute Jim Escobedo MD 02/08/23634 documented in this encounter [facility] Work Phone: 02-08-2023 Physician Emergency department Note Patient is a 47-year-old female presents with cough cold and flu type symptoms for about 10 days. Reports some sinus congestion, body aches, cough, nausea. Last thing she took was some Benadryl last night. Review of Systems Physical Exam Vitals and nursing note reviewed. Constitutional: General: She is not in acute distress. Appearance: She is well-developed. HENT: Head: Normocephalic and atraumatic. Eyes: Conjunctiva/sclera: Conjunctivae normal. Cardiovascular: Rate and Rhythm: Normal rate and regular rhythm. Heart sounds: No murmur heard. Pulmonary: Effort: Pulmonary effort is normal. No respiratory distress. Breath sounds: Normal breath sounds. Abdominal: Palpations: Abdomen is soft. Tenderness: There is no abdominal tenderness. Musculoskeletal: General: No swelling. Cervical back: Neck supple. Skin: General: Skin is warm and dry. Capillary Refill: Capillary refill takes less than 2 seconds. Neurological: Mental Status: She is alert. Psychiatric: Mood and Affect: Mood normal. Labs Reviewed SARS-COV-2 PCR, SCREEN ASYMPTOMATIC - Normal Result Value Coronavirus 2019, PCR Not Detected Narrative: This assay has received FDA Emergency Use Authorization (EUA) and is only authorized for the duration of time that circumstances exist to justify the authorization of the emergency use of in vitro diagnostic tests for the detection of SARS-CoV-2 virus and/or diagnosis of COVID-19 infection under section 564(b)(1) of the Act, 21 U.S.C. 360bbb-3(b)(1). This assay is an in vitro diagnostic nucleic acid amplification test for the qualitative detection of SARS-CoV-2 from nasopharyngeal specimens and has been validated for use at [facility]. Negative results do not preclude COVID-19 infections and should not be used as the sole basis for diagnosis, treatment, or other management decisions. RSV PCR - Normal RSV PCR Not Detected Narrative: This assay is an FDA-cleared, in vitro diagnostic nucleic acid amplification test for the detection of RSV from nasopharyngeal specimens, and has been validated for use at [facility]. Negative results do not preclude RSV infections, and should not be used as the sole basis for diagnosis, treatment, or other management decisions. If Influenza A/B and RSV PCR results are negative, testing for Parainfluenza virus, Adenovirus and Metapneumovirus is routinely performed for pediatric oncology and intensive care inpatients at [facility], and is available on other patients by placing an add-on request. INFLUENZA A AND B PCR - Normal Flu A Result Not Detected Flu B Result Not Detected Narrative: This assay is an in vitro diagnostic multiplex nucleic acid amplification test for the detection and discrimination of Influenza A & B from nasopharyngeal specimens, and has been validated for use at [facility]. Negative results do not preclude Influenza A/B infections, and should not be used as the sole basis for diagnosis, treatment, or other management decisions. If Influenza A/B and RSV PCR results are negative, testing for Parainfluenza virus, Adenovirus and Metapneumovirus is routinely performed for [facility] pediatric oncology and intensive care inpatients, and is available on other patients by placing an add-on request. No orders to display Procedures Medical Decision Making Patient's lungs are clear. O2 saturation is stable. Swabs for COVID, influenza, and RSV are negative. Will prescribe oral Augmentin Diagnoses as of 02/08/23634 URI, acute Jim Escobedo MD 02/08/23634 [facility] Work Phone: 01-17-2023 History of Present illness Narrative Associated Order(s): L Inj/Asp: R knee Post-Procedure Diagnose(s): Primary osteoarthritis of right knee Images from the original note were not included. History of Present Illness No chief complaint on file. Patient with known osteoarthritis of the side: right knee who presents today for repeat evaluation. The patient notes worsening knee pain. The patient notes stable mechanical symptoms. The patient has tried the following modalities Physical therapy, NSAIDS, Injections, and bracing . Insurance company denied her viscoelastic supplement injections. She has difficulty with activities of daily living and her quality of life is diminishing. Past Medical History: Diagnosis Date Encounter for delivery without indication Delivery of by section Encounter for gynecological examination (general) (routine) without abnormal findings Pap test, as part of routine gynecological examination Encounter for gynecological examination (general) (routine) without abnormal findings 09/14/2019 Women's annual routine gynecological examination Other conditions influencing health status Menstruation Personal history of other complications of , childbirth and the puerperium History of Personal history of other malignant neoplasm of skin History of skin cancer Personal history of other medical treatment History of mammogram Medication Documentation Review Audit Prior to Admission medications have not yet been reviewed Not on File Social History Socioeconomic History Marital status: Spouse name: Not on file Number of children: Not on file Years of education: Not on file Highest education level: Not on file Occupational History Not on file Tobacco Use Smoking status: Not on file Smokeless tobacco: Not on file Substance and Sexual Activity Alcohol use: Not on file Drug use: Not on file Sexual activity: Not on file Other Topics Concern Not on file Social History Narrative Not on file Social Determinants of Health Financial Resource Strain: Not on file Food Insecurity: Not on file Transportation Needs: Not on file Physical Activity: Not on file Stress: Not on file Social Connections: Not on file Intimate Partner Violence: Not on file Housing Stability: Not on file Past Surgical History: Procedure Laterality Date OTHER SURGICAL HISTORY 02/18/2019 Dilation and evacuation OTHER SURGICAL HISTORY 07/01/2019 section OTHER SURGICAL HISTORY 07/01/2019 Endometrial ablation OTHER SURGICAL HISTORY 07/01/2019 Endometrial biopsy OTHER SURGICAL HISTORY 07/01/2019 Foot surgery OTHER SURGICAL HISTORY 07/01/2019 Laparoscopy OTHER SURGICAL HISTORY 07/01/2019 Total hysterectomy abdominal OTHER SURGICAL HISTORY 09/17/2021 Skin lesion excision Review of Systems GENERAL: Negative for malaise, significant weight loss, fever MUSCULOSKELETAL: see HPI NEURO: Negative BMI 45 Exam side: right Knee: Skin healthy and intact No gross swelling or ecchymosis Alignment: normal Effusion: mild ROM: 0-120 degrees Crepitance with range of motion No pain with internal rotation of the hip Tenderness to palpation: medial Pain with patellar compression: Yes No laxity to valgus stress No laxity to varus stress Negative Zachariah s test Negative posterior drawer test positive Dana s test Neurovascular exam normal distally 2+ DP pulse and good cap refill Imaging BI mammo bilateral screening tomosynthesis Narrative: Interpreted By: HUNTER RIGGS MD Patient Name: SURAJ HAWK STUDY: DIGITAL MAMM SCREENING W/ SUSANNA; 11/04/2022 8:10 am ACCESSION NUMBER(S): [id number] ORDERING CLINICIAN: KINGSLEY HUTCHINS INDICATION: Screening. COMPARISON: 11/01/2021 FINDINGS: CC and MLO 2D digital mammograms and digital breast tomosynthesis images were obtained of the bilateral breasts. 3-D volume images were reconstructed in 4 views at an independent workstation as 1 mm slices through the breasts in both the CC and MLO projections. There are areas of scattered fibroglandular tissue. No discrete mass or focal asymmetry is identified. No suspicious microcalcifications or foci of architectural distortion are seen. There has been no significant change. This study was interpreted with CAD. Impression: No mammographic evidence of malignancy. BI-RADS CATEGORY: BI-RADS Category: 1 Negative. Recommendation: Routine Screening Mammogram in 1 Year. Recommended Date: 1 Year. Laterality: Bilateral. MACRO: None Assessment Patient with known osteoarthritis of the side: right knee Plan We reviewed an evidence-based approach to OA of the knee. We discussed past treatments as well options for future treatment. NSAIDS and a corticosteroid injection. I will refill her naproxen. Continue wearing the brace as needed. Continue her home exercise program. Follow-up in 1 month for recheck. If continue to have pain I will resubmit for viscoelastic supplement injection Questions answered L Inj/Asp: R knee on 01/17/2023 9:11 AM Indications: pain Details: 21 G needle, anterolateral approach Medications: 1 mL lidocaine 10 mg/mL (1 %); 1 mg betamethasone acet,sod phos 6 mg/mL Outcome: tolerated well, no immediate complications Procedure, treatment alternatives, risks and benefits explained, specific risks discussed. Consent was given by the patient. Immediately prior to procedure a time out was called to verify the correct patient, procedure, equipment, family support coordinator and site/side marked as required. Patient was prepped and draped in the usual sterile fashion. documented in this encounter [facility] Work Phone: 10-25-2022 History of Present illness Narrative Suraj Hawk 47 y.o. female CHIEF COMPLAINT: Headache HISTORY OF PRESENT ILLNESS: Suraj follows on 10/25/2022. Our last visit was 10/26/2021. She is a 47-year-old with chronic migraine, hormonally related initially improved after she went OC and had a hysterectomy. Topamax was tapered and she was doing well but her headaches have recurred during the past year. Stress may exacerbate her headaches which usually respond to Nurtec 75 mg Age at headache onset:chronic Family history of headache:son Duration/Location of headache: days Frequency of headache:one a month/ at least 1 may be 2 a week with taking Nurtec Aura: none Miss work/activities:++ Triggers: Nausea/Vomiting/Photo/Sono:++ Neuro symptoms associated:dizzy and lightheaded with migraine OTC medication frequency:taking Naproxen day for knee Prescribed preventive meds:off Topamax Prescribed abortive meds: eletriptan/stat dose-Nurtec as need lasts x 2 days Evaluation(scans): MRI brain normal 2018 Laboratory investigations: 12/29/2021 Cholesterol 258 LDL 187 TG 62 Glucose 84 CO2 29 AST/ALT / H/H REVIEW OF SYSTEMS: Hysterectomy 2019 Sleep:hot flashes/ better 5-6- takes black cohash Caffeine: Head trauma: Water consumption:60-80 Missed meals: Exercise:right knee pain 08/19 may have bone spurs taken out Depression:zoloft 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 year/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 but will go [place] for [place] in Nov 2 children -one got scholarship to [employer] ALLERGIES: Allergies Allergen Reactions Nickel Rash Sulfa Antibiotics PAST MEDICAL HISTORY: Past Medical History: Diagnosis Date Migraine SOCIAL HISTORY: Social History Socioeconomic History Marital status: Tobacco Use Smoking status: Never Smokeless tobacco: Never Vaping Use Vaping Use: Never used Substance and Sexual Activity Alcohol use: Yes Comment: rarely Drug use: No 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 MEDICATIONS PRIOR TO VISIT: Current Outpatient Medications: Albuterol Sulfate (PROAIR HFA IN), Inhale as needed. (Patient not taking: Reported on 10/27/2020), Disp: , Rfl: Budesonide-Formoterol Fumarate (SYMBICORT IN), take by inhalation. (Patient not taking: Reported on 10/27/2020), Disp: , Rfl: Cetirizine HCl (ZYRTEC ALLERGY PO), Take by mouth as needed., Disp: , Rfl: Coenzyme Q10 (COQ10 PO), Take by mouth., Disp: , Rfl: Levonorgestrel-Ethinyl Estrad (LILLOW PO), Take by mouth. (Patient not taking: Reported on 10/27/2020), Disp: , Rfl: Loratadine (CLARITIN PO), take by mouth., Disp: , Rfl: Montelukast Sodium (SINGULAIR PO), take by mouth., Disp: , Rfl: naproxen sodium (Anaprox DS) 550 MG tablet, 1 po prn headache 1 po prn headache may repeat in 2 hours (Patient not taking: Reported on 10/26/2021), Disp: 15 tablet, Rfl: 11 Niacin, Antihyperlipidemic, (NIASPAN PO), take by mouth. (Patient not taking: Reported on 10/27/2020), Disp: , Rfl: Riboflavin 100 MG Tab, take 100 mg by mouth. (Patient not taking: Reported on 10/27/2020), Disp: , Rfl: Rimegepant Sulfate (Nurtec) 75 MG Tab Dispersible, 1 po prn migraine. Not more than 1 a day or 2 a week, Disp: 8 tablet, Rfl: 11 Sertraline HCl (ZOLOFT PO), Take 100 mg by mouth every evening. , Disp: , Rfl: SUMAtriptan Succinate (Imitrex STATdose System) 4 MG/0.5ML Solution Auto-injector, 1 sub q dose prn headache, may repeat in 2 hours; no more than 2 a day, Disp: 3 mL, Rfl: 3 PHYSICAL EXAM: There were no vitals taken for this visit. There is no height or weight on file to calculate BMI. OS 5 mm reactive OD 4 mm reactive Slight widening of left palpebral fissure -compared to old picture seems no change Speech fluent Heart RRR No carotid bruits Gait stable ASSESSMENT/IMPRESSION: Problem List Items Addressed This Visit Cardiovascular Intractable migraine without aura and without status migrainosus - Primary PLAN: Consider lab if JORDAN do not improve- sed TSH Nurtec 75 mg every other day for > 15 JORDAN days a month Stat dose as need Magnesium if tolerated (nickel allergy) Follow up 6 months Alexandra Norton DO documented in this encounter [facility] 10-25-2022 Instructions Alexandra Norton DO - 10/25/2022 8:20 AM EDT Magnesium 400 mg if able - start with 100 mg Nurtec 75 mg (though ASPN) every other day could go every 3rd day if better Stat dose as need Follow up 6 months Message or call in 6 weeks Consider lab documented in this encounter [facility] 02-26-2022 History of Present illness Narrative Edwina is a pleasant 46-year-old female presenting for follow-up of right knee pain and arthritis. Patient was seen for initial visit 6 weeks ago with KATHY Antoine and is new to me today. Patient to get a cortisone shot which she states helped for about 2 weeks and it has returned to baseline. She is unable to identify worsening or improving factors. She rotates Tylenol and ibuprofen for symptom control which do help some, she ends up taking something at least once a day. She went to PT evaluation and 1 visit date instructed on home exercises and did not see a need to continue. Patient continues to do the home exercise as instructed. Patient has used Voltaren gel multiple attempts over period of time and does not notice any pain relief. She is not using any bracing or wraps. [facility] [address] Work Phone: 02-20-2022 History of Present illness Narrative Ms. Hawk arrives to outpatient PT with s/s consistent with c/o R knee pain which has mostly resolved following cortisone injection 02/20/22. Pt with good strength and flexibility of BLE however HEP given for functional strengthening of the BLE. No further visits planned as pt educated to complete HEP 4x/week. Education on depth of squat/ lunge, determining reps to complete based on pain with activity, and expected soreness following evaluation. Pt instructed to call with any worsening of symptoms or questions. Pt with understanding and agreement.Clinical Presentation: Stable and/or uncomplicated characteristics.Level of Complexity: lowProblem List: decreased functional level, decreased knowledge of HEP, pain and participation restrictions. [facility] Work Phone: 02-10-2022 History of Present illness Narrative Sx sameNo aggHEP helps a bitKEeping awake at night, Tyl ibu not helpingOccas sharp sohooitnh pain ,resolves on own. Never pain freeCortisone helped for a few weeks Feb denied by insuranceDiclofenac gel didn't work. [facility] [address] Work Phone: 02-10-2022 History of Present illness Narrative Sx sameNo aggHEP helps a bitKeeping awake at night, Tylenol, ibuprofen not helpingOccas sharp shooting pain ,resolves on own. Never pain freeCortisone helped for a few weeks Feb denied by insuranceDiclofenac gel didn't work. [facility] [address] Work Phone: 01-10-2022 History of Present illness Narrative Scanned document documented in this encounter [facility] 01-09-2022 History of Present illness Narrative OFFICE CONSULTATION NOTE [facility] [address] [facility] [address] [facility] [id number] Physicians: Ayla Subramanian MD (Family); No ref. provider found (Referring) Subjective: Suraj Hawk is a 46 y.o. female seen in the office today for Follow-up (Pt states no cardiac concerns today.// pt states she has been doing well.) I last saw her as a televisit in 2019. She has high cholesterol levels. Also family history of premature coronary artery disease. She is doing well from a symptomatic standpoint no chest discomfort shortness of breath lightheadedness dizziness. She did lose 14 pounds unfortunately crept back. It is tough to find time to exercise with 10-hour days working and commuting. She had a lot of stressful events over the past couple years. Assessment & Plan: HLD (hyperlipidemia) CV risk calculator results as below. LDL cholesterolat this point is decreased below the 190 jaylin. Good HDL of 59 and normal triglycerides. Fasting sugars not suggest diabetes. Blood pressures are fine. Very slight improvement in cholesterol. EKG is normal we had a long discussion about diet about decreasing complex carbohydrates unfortunately she tends to have hypoglycemia and needs to snack. We talked about healthy snacks. We talked ways to lose weight with online programs and weight watchers she prefers to go it alone. 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 We are going to check a thyroid test which has not been done for some time that I can find and vitamin D levels. She is going to work on diet and weight loss and we will see her in 1 year with lipid profiles prior to that.. The 10-year ASCVD risk score (Jose Carlos DK, et al., 2019) is: 1% Values used to calculate the score: Age: 46 years Sex: Female Is Non- : No Diabetic: No Tobacco smoker: No Systolic Blood Pressure: 108 mmHg Is BP treated: No HDL Cholesterol: 59 mg/dL Total Cholesterol: 258 mg/dL Orders placed this encounter: Orders Placed This Encounter Procedures TSH Standing Status: Future Standing Expiration Date: 01/09/2023 Order Specific Question: Release to patient Answer: Immediate Vitamin D 1,25 Dihydroxy Standing Status: Future Standing Expiration Date: 01/09/2023 Order Specific Question: Release to patient Answer: Immediate Lipid panel Standing Status: Future Standing Expiration Date: 01/09/2023 Order Specific Question: Release to patient Answer: Immediate ECG 12 Lead Order Specific Question: Release to patient Answer: Immediate Follow Up Ordered: Return in about 1 year (around 01/09/2023). Patient's Medications New Prescriptions No medications on file Previous Medications LORATADINE (CLARITIN) 10 MG TABLET Take 1 (one) tablet (10 mg total) by mouth daily . MONTELUKAST (SINGULAIR) 10 MG TABLET Take 1 (one) tablet (10 mg total) by mouth nightly . RIMEGEPANT SULFATE (NURTEC ODT ORAL) Take 75 mg by mouth PRN . SERTRALINE (ZOLOFT) 50 MG TABLET Take 2 (two) tablets (100 mg total) by mouth daily . Modified Medications No medications on file Discontinued Medications ELETRIPTAN (RELPAX) 40 MG TABLET TAKE 1 TABLET BY MOUTH NEEDED FOR HEADACHE MAY REPEAT ONCE IN 2 HOURS IF NECESSARY IMIPRAMINE (TOFRANIL) 50 MG TABLET Take 50 mg by mouth nightly . NAPROXEN (NAPROSYN) 500 MG TABLET Take 550 mg by mouth 2 (two) times a day as needed . SUMATRIPTAN SUCCINATE 4 MG/0.5 ML PEN 1 DOSE SUBCUTANEOUSLY NEEDED FOR HEADACHE - MAY REPEAT IN 2 HOURS - NO MORE THAN 2 A DAY Histories: Past Medical History: Diagnosis Date Environmental allergies High cholesterol Migraines Past Surgical History: Procedure Laterality Date ABLATION WITH PHENOL SECTION CYST REMOVAL FOOT SURGERY HYSTERECTOMY TUBAL LIGATION Family History Problem Relation Age of Onset Heart attack Father Social History Tobacco Use Smoking status: Never Smokeless tobacco: Never Vaping Use Vaping Use: Never used Substance Use Topics Alcohol use: Yes Comment: rarely Drug use: No Allergies Allergen Reactions Nickel Sulfa (Sulfonamide Antibiotics) Overview of Problems Addressed: Problem Hld (Hyperlipidemia) Labs on September 14, 2016 LFTs are fine, total cholesterol 275, triglyceride 100, HDL 56, LDL 199. Objective: Vitals: BP 108/73 (BP Location: Right arm, Patient Position: Sitting) Ht 5' 1 Wt 108 kg (238 lb) BMI 44.97 kg/m BP Readings from Last 3 Encounters: 01/09/22 108/73 10/29/18 104/70 10/06/17 (!) 113/57 Alert and oriented x3. Sclera nonicteric. Neck supple. Chest clear to auscultation bilaterally. Cardiovascular regular rate and rhythm , no carotid bruits, brisk carotid upstrokes, S1-S2 normal no murmurs, gallops, rubs. Abdomen is soft and nontender. No lower extremity edema. 1. Familial hypercholesterolemia Invalid input(s): CO2, MAG Jaclyn Meneses MD 01/09/2022 documented in this encounter [facility] 01-08-2022 Instructions Jaclyn Meneses MD - 01/08/2022 1:28 PM EST ..How to contact your Care Team: Provider: Jaclyn Meneses MD ____ Nurse: Gurpreet Rossi RN ____ ____ ____ In case of an emergency please call 911. REFILLS: When in need for refills please call your care team or the office at [phone]. Please include medication name, pharmacy name, and specify 30-day or 90-day supply. Please check with your pharmacy within 24 hours of request for your refill. You must follow up as directed to continue current refills. Thank you [employer] documented in this encounter [facility] 01-04-2022 Evaluation + Plan note Associated Problem(s): HLD (hyperlipidemia) CV risk calculator results as below. LDL cholesterolat this point is decreased below the 190 jaylin. Good HDL of 59 and normal triglycerides. Fasting sugars not suggest diabetes. Blood pressures are fine. Very slight improvement in cholesterol. EKG is normal we had a long discussion about diet about decreasing complex carbohydrates unfortunately she tends to have hypoglycemia and needs to snack. We talked about healthy snacks. We talked ways to lose weight with online programs and weight watchers she prefers to go it alone. 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 We are going to check a thyroid test which has not been done for some time that I can find and vitamin D levels. She is going to work on diet and weight loss and we will see her in 1 year with lipid profiles prior to that.. The 10-year ASCVD risk score (JoseC arlos OAKES, et al., 2019) is: 1% Values used to calculate the score: Age: 46 years Sex: Female Is Non- : No Diabetic: No Tobacco smoker: No Systolic Blood Pressure: 108 mmHg Is BP treated: No HDL Cholesterol: 59 mg/dL Total Cholesterol: 258 mg/dL [facility] 01-04-2022 Miscellaneous Notes Associated Problem(s): HLD (hyperlipidemia) CV risk calculator results as below. LDL cholesterolat this point is decreased below the 190 jaylin. Good HDL of 59 and normal triglycerides. Fasting sugars not suggest diabetes. Blood pressures are fine. Very slight improvement in cholesterol. EKG is normal we had a long discussion about diet about decreasing complex carbohydrates unfortunately she tends to have hypoglycemia and needs to snack. We talked about healthy snacks. We talked ways to lose weight with online programs and weight watchers she prefers to go it alone. 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 We are going to check a thyroid test which has not been done for some time that I can find and vitamin D levels. She is going to work on diet and weight loss and we will see her in 1 year with lipid profiles prior to that.. The 10-year ASCVD risk score (Jose Carlos OAKES, et al., 2019) is: 1% Values used to calculate the score: Age: 46 years Sex: Female Is Non- : No Diabetic: No Tobacco smoker: No Systolic Blood Pressure: 108 mmHg Is BP treated: No HDL Cholesterol: 59 mg/dL Total Cholesterol: 258 mg/dL documented in this encounter [facility] 11-19-2021 History of Present illness Narrative 46 YOF presents for acute visit.KNEE PAIN: R knee pain for about 6 weeks, denies injury/trauma to knee. She goes to chiropractor regularly who gave her exercises which do not help with pain. Pain is sharp and located to medial side of knee joint. Denies any swelling. Pain is only mild currently, pain is constant and will flare. Pain at its worst is almost 10/10. She is taking otc ibuprofen/Tylenol only minimally effective, has not tried icing.URI: 7 days of congestion, runny nose, cough productive, low grade fever. -[facility] Work Phone: 10-26-2021 History of Present illness Narrative Surajdania Hawk 46 y.o. female CHIEF COMPLAINT: Headache HISTORY OF PRESENT ILLNESS: Edwina follows on 10/26/21. Our last visit was 10/27/2020. She is a 46-year-old with chronic migraine, hormonally related and improved after she went off to see. Her Topamax was tapered and she had some initial weight gain but her headaches have been doing well. She had an exacerbation last year secondary to stress, but has been doing well this year and her headaches are usually respond to Nurtec 75 mg MIDAS 13 Age at headache onset:chronic Family history of headache:son Duration/Location of headache: Frequency of headache:variable/one a month Aura: Miss work/activities:tries not to Triggers:stress Nausea/Vomiting/Photo/Sono: Neuro symptoms associated: OTC medication frequency: Prescribed preventive meds:off of Topamax Prescribed abortive meds:eletriptan/stat dose- has refills took once this year/Nurtec as need Evaluation(scans): MRI brain normal 2018 Laboratory investigations: REVIEW OF SYSTEMS: Sleep:troubled/average 5- hot flashes Caffeine: Head trauma: Water consumption:60-80 Missed meals: Exercise:none Depression:zoloft 100 mg was 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 year 2 children ALLERGIES: Allergies Allergen Reactions Nickel Rash Sulfa Antibiotics PAST MEDICAL HISTORY: Past Medical History: Diagnosis Date Migraine SOCIAL HISTORY: Social History Socioeconomic History Marital status: Tobacco Use Smoking status: Never Smoker Smokeless tobacco: Never Used Vaping Use Vaping Use: Never used Substance and Sexual Activity Alcohol use: Yes Comment: rarely Drug use: No 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 MEDICATIONS PRIOR TO VISIT: Current Outpatient Medications: Cetirizine HCl (ZYRTEC ALLERGY PO), Take by mouth as needed., Disp: , Rfl: Coenzyme Q10 (COQ10 PO), Take by mouth., Disp: , Rfl: Rimegepant Sulfate (Nurtec) 75 MG Tab Dispersible, 1 po prn migraine. Not more than 1 a day or 2 a week, Disp: 8 tablet, Rfl: 11 Sertraline HCl (ZOLOFT PO), Take 100 mg by mouth every evening. , Disp: , Rfl: SUMAtriptan Succinate (Imitrex STATdose System) 4 MG/0.5ML Solution Auto-injector, 1 sub q dose prn headache, may repeat in 2 hours; no more than 2 a day, Disp: 3 mL, Rfl: 3 Albuterol Sulfate (PROAIR HFA IN), Inhale as needed. (Patient not taking: Reported on 10/27/2020), Disp: , Rfl: Budesonide-Formoterol Fumarate (SYMBICORT IN), take by inhalation. (Patient not taking: Reported on 10/27/2020), Disp: , Rfl: Levonorgestrel-Ethinyl Estrad (LILLOW PO), Take by mouth. (Patient not taking: Reported on 10/27/2020), Disp: , Rfl: Loratadine (CLARITIN PO), take by mouth., Disp: , Rfl: Montelukast Sodium (SINGULAIR PO), take by mouth., Disp: , Rfl: naproxen sodium (Anaprox DS) 550 MG tablet, 1 po prn headache 1 po prn headache may repeat in 2 hours (Patient not taking: Reported on 10/26/2021), Disp: 15 tablet, Rfl: 11 Niacin, Antihyperlipidemic, (NIASPAN PO), take by mouth. (Patient not taking: Reported on 10/27/2020), Disp: , Rfl: Riboflavin 100 MG Tab, take 100 mg by mouth. (Patient not taking: Reported on 10/27/2020), Disp: , Rfl: PHYSICAL EXAM: Blood pressure 140/90, pulse 82, resp. rate 16, height 1.549 m (5' 1), weight 109.3 kg (241 lb), SpO2 97 %. Body mass index is 45.54 kg/m . 3 # weight gain Speech Heart regular rate and rhythm No bruits auscultated carotids Minimal jaw deviation and negligible click but tenderness with palpation of right greater than left TMJ ASSESSMENT/IMPRESSION: Problem List Items Addressed This Visit Cardiovascular Intractable migraine without aura and without status migrainosus - Primary Other Visit Diagnoses Temporomandibular joint disorder (TMJ) Relevant Orders AMB REFERRAL TO PHYSICAL THERAPY PLAN: Increase activity Biocreamcream/chiropractor PT Nurtec 75 mg Alexandra Norton DO documented in this encounter [facility] 10-26-2021 Instructions Alexandra Norton DO - 10/26/2021 8:20 AM EDT Walk 30 minutes a day Nurtec 75 mg as need Bio cream/chiropractor PT Follow up 1 year documented in this encounter [facility] 06-26-2021 History of Present illness Narrative Patient is here for evaluation of sinus pressure and burning sensation in her nose. She reports that her symptom started about a week ago. She has significant pressure in her maxillary sinus area. Recently she has burning sensation in her nostrils as well. Denies noticing any purulent discharge from the nostrils. She has significant allergies. Currently receiving allergy shot every week. Additionally uses antihistamine and Singulair daily. Also performs Armida pot regularly as well.Plan: Significant dryness of nostrils is noticed. Recommended to use Vaseline or coconut oil to help with lubrication in the nostrils. Prescribing Augmentin for potential sinusitis. Recommended to continue other allergy prevention measures.Follow-up as needed. -[facility] Work Phone: 11-01-2020 History of Present illness Narrative Edwina is here for evaluation of her sinus symptoms. Patient reports that her symptoms started about 2 weeks ago. Reports that she has significant nasal congestion. Mild intermittent cough. Denies fever or shortness of breath. Has history of allergies. Used to get recurrent sinus infections in the past. But after getting a procedure by ENT, her rate of infections have gotten better. Feels like her symptoms are progressively getting worse.Plan:Starting Augmentin for sinusitis. Jackson pot/sinus rinse recommended. Patient already performs this every day.Follow-up as needed. [facility] Work Phone: Evaluation note No assessment inform ation available [facility] Work Phone: Evaluation note Diagnosis Intractable migraine without aura and without status migrainosus- Primary Migraine without aura, with intractable migraine, so stated, without mention of status migrainosus Temporomandibular joint disorder (TMJ) Temporomandibular joint disorders, unspecified documented in this encounter [facility]* Diagnosis F[facility]ch[facility]olemia [facility] Intractable migraine without aura and without status migrainosus- Primary Migraine without aura, with intractable migraine, so stated, without mention of status migrainosus documented in this encounter [facility]* Diagnosis Primary osteoarthritis of right knee- Primary documented in this encounter [facility] Work Phone: Evaluation note* Diagnosis URI, acute- Primary Acute upper respiratory infections of unspecified site documented in this encounter [facility] Work Phone: Evaluation note* Diagnosis Acute bronchitis, unspecified organism- Primary documented in this encounter [facility] Work Phone: Evaluation note* Diagnosis Primary osteoarthritis of right knee- Primary Chronic pain of right knee Chronic pain of right knee documented in this encounter [facility] Work Phone: Evaluation note* Diagnosis Viral URI with cough- Primary documented in this encounter [facility] Work Phone: Evaluation note* Diagnosis Familial hypercholesterolemia- Primary [facility] Diagnosis Familial hypercholesterolemia- Primary [facility] Diagnosis Familial hypercholesterolemia- Primary [facility] Diagnosis Intractable migraine without aura and without status migrainosus- Primary Migraine without aura, with intractable migraine, so stated, without mention of status migrainosus documented in this encounter [facility]* Diagnosis Onset Date Resolution Status Cervical strain acute Contusion of right knee acut e Contusion of right shoulder acute Hip strain acute Strain of lumbar region acut e [facility] Work Phone: Evaluation note* Diagnosis Class 3 severe obesity due to excess calories without serious comorbidity with body mass index (BMI) of 40.0 to 44.9 in adult (Multi)- Primary Primary osteoarthritis of right knee Medication management Gallstones Calculus of gallbladder without mention of cholecystitis or obstruction Screen for colon cancer Special screening for malignant neoplasms, colon documented in this encounter [facility] Work Phone: Evaluation note* Diagnosis Gallstones Calculus of gallbladder without mention of cholecystitis or obstruction documented in this encounter [facility] Work Phone: Evaluation note* Diagnosis Gallstones Calculus of gallbladder without mention of cholecystitis or obstruction documented in this encounter [facility] Work Phone: Evaluation note* Diagnosis Primary osteoarthritis of right knee- Primary Chronic pain of right knee documented in this encounter [facility] Work Phone: Evaluation note* Diagnosis Class 3 severe obesity due to excess calories without serious comorbidity with body mass index (BMI) of 40.0 to 44.9 in adult (Multi)- Primary Medication management Primary osteoarthritis of right knee Fatty liver Other chronic nonalcoholic liver disease documented in this encounter [facility] Work Phone: Evaluation note* Diagnosis Primary osteoarthritis of right knee- Primary documented in this encounter [facility] Work Phone: Evaluation note* Diagnosis Primary osteoarthritis of right knee- Primary Chronic pain of right knee documented in this encounter [facility] Work Phone: Evaluation note* Diagnosis Colon cancer screening Special screening for malignant neoplasms, colon documented in this encounter [facility] Work Phone: Evaluation note* Diagnosis Intractable migraine without aura and without status migrainosus- Primary Migraine without aura, with intractable migraine, so stated, without mention of status migrainosus documented in this encounter [facility]* Diagnosis Intractable migraine without aura and without status migrainosus- Primary Migraine without aura, with intractable migraine, so stated, without mention of status migrainosus documented in this encounter [facility]* Diagnosis Primary osteoarthritis of right knee- Primary Chronic pain of right knee Primary osteoarthritis of right knee- Primary Primary osteoarthritis of right knee- Primary Chronic pain of right knee Primary osteoarthritis of right knee- Primary Acute pain of right knee Primary osteoarthritis of right knee- Primary Acute pain of right knee Rhabdomyolysis Acute pain of right knee High cholesterol Pure hypercholesterolemia Elevated troponin Other abnormal blood chemistry Encounter for screening mammogram for malignant neoplasm of breast documented in this encounter [facility] Work Phone: Evaluation note* Diagnosis Primary osteoarthritis of right knee- Primary Chronic pain of right knee Primary osteoarthritis of right knee- Primary Primary osteoarthritis of right knee- Primary Chronic pain of right knee Primary osteoarthritis of right knee- Primary Acute pain of right knee Primary osteoarthritis of right knee- Primary Acute pain of right knee Rhabdomyolysis Acute pain of right knee High cholesterol Pure hypercholesterolemia Elevated troponin Other abnormal blood chemistry Non-traumatic rhabdomyolysis- Primary Weakness of both hips documented in this encounter [facility] Work Phone: Evaluation note* Diagnosis Primary osteoarthritis of right knee- Primary Chronic pain of right knee Primary osteoarthritis of right knee- Primary Primary osteoarthritis of right knee- Primary Chronic pain of right knee Primary osteoarthritis of right knee- Primary Acute pain of right knee Primary osteoarthritis of right knee- Primary Acute pain of right knee Rhabdomyolysis Acute pain of right knee High cholesterol Pure hypercholesterolemia Elevated troponin Other abnormal blood chemistry Elevated troponin I level Non-traumatic rhabdomyolysis documented in this encounter [facility] Work Phone: Evaluation note* Diagnosis Primary osteoarthritis of right knee- Primary Chronic pain of right knee Primary osteoarthritis of right knee- Primary Primary osteoarthritis of right knee- Primary Chronic pain of right knee Primary osteoarthritis of right knee- Primary Acute pain of right knee Primary osteoarthritis of right knee- Primary Acute pain of right knee Rhabdomyolysis Acute pain of right knee High cholesterol Pure hypercholesterolemia Elevated troponin Other abnormal blood chemistry Primary osteoarthritis of right knee- Primary documented in this encounter [facility] Work Phone: Evaluation note* Diagnosis Primary osteoarthritis of right knee- Primary Chronic pain of right knee Primary osteoarthritis of right knee- Primary Primary osteoarthritis of right knee- Primary Chronic pain of right knee Primary osteoarthritis of right knee- Primary Acute pain of right knee Primary osteoarthritis of right knee- Primary Acute pain of right knee Rhabdomyolysis Acute pain of right knee High cholesterol Pure hypercholesterolemia Elevated troponin Other abnormal blood chemistry Primary osteoarthritis of right knee- Primary Generalized weakness- Primary Non-traumatic rhabdomyolysis Fatty liver Other chronic nonalcoholic liver disease Primary osteoarthritis of right knee Class 3 severe obesity due to excess calories without serious comorbidity with body mass index (BMI) of 40.0 to 44.9 in adult documented in this encounter [facility] Work Phone: Evaluation note* Diagnosis Intractable migraine without aura and without status migrainosus- Primary Migraine without aura, with intractable migraine, so stated, without mention of status migrainosus documented in this encounter [facility]* Diagnosis Primary osteoarthritis of right knee- Primary Chronic pain of right knee Primary osteoarthritis of right knee- Primary Primary osteoarthritis of right knee- Primary Chronic pain of right knee Primary osteoarthritis of right knee- Primary Acute pain of right knee Primary osteoarthritis of right knee- Primary Acute pain of right knee Rhabdomyolysis Acute pain of right knee High cholesterol Pure hypercholesterolemia Elevated troponin Other abnormal blood chemistry Primary osteoarthritis of right knee- Primary Acute bronchitis, unspecified organism- Primary documented in this encounter [facility] Work Phone: Evaluation note* Diagnosis Non-healing skin lesion of nose- Primary Class 3 severe obesity due to excess calories without serious comorbidity with body mass index (BMI) of 40.0 to 44.9 in adult (Multi) documented in this encounter [facility] Work Phone: Evaluation note* Diagnosis Primary osteoarthritis of right knee- Primary Chronic pain of right knee Primary osteoarthritis of right knee- Primary Primary osteoarthritis of right knee- Primary Chronic pain of right knee Primary osteoarthritis of right knee- Primary Acute pain of right knee Primary osteoarthritis of right knee- Primary Acute pain of right knee Rhabdomyolysis Acute pain of right knee High cholesterol Pure hypercholesterolemia Elevated troponin Other abnormal blood chemistry Primary osteoarthritis of right knee- Primary Bronchitis- Primary Bronchitis, not specified as acute or chronic documented in this encounter [facility] Work Phone: Evaluation note* Diagnosis Intractable migraine without aura and without status migrainosus- Primary Migraine without aura, with intractable migraine, so stated, without mention of status migrainosus Non-traumatic rhabdomyolysis [facility] Primary osteoarthritis of right knee- Primary Chronic pain of right knee Primary osteoarthritis of right knee- Primary Primary osteoarthritis of right knee- Primary Chronic pain of right knee Primary osteoarthritis of right knee- Primary Acute pain of right knee Primary osteoarthritis of right knee- Primary Acute pain of right knee documented in this encounter [facility] Work Phone: Evaluation note* Diagnosis Primary osteoarthritis of right knee- Primary Chronic pain of right knee Primary osteoarthritis of right knee- Primary Primary osteoarthritis of right knee- Primary Chronic pain of right knee Primary osteoarthritis of right knee- Primary Acute pain of right knee Primary osteoarthritis of right knee- Primary Acute pain of right knee Depression, unspecified depression type- Primary Encounter for screening mammogram for malignant neoplasm of breast Encounter for gynecological examination without abnormal finding Vaginal Pap smear Special screening for malignant neoplasms, vagina documented in this encounter [facility] Work Phone: Evaluation note* Diagnosis Primary osteoarthritis of right knee- Primary Chronic pain of right knee Primary osteoarthritis of right knee- Primary Primary osteoarthritis of right knee- Primary Chronic pain of right knee Primary osteoarthritis of right knee- Primary Acute pain of right knee Primary osteoarthritis of right knee- Primary Acute pain of right knee Viral syndrome- Primary Unspecified viral infection, in conditions classified elsewhere and of unspecified site documented in this encounter [facility] Work Phone: Evaluation note* Diagnosis Primary osteoarthritis of right knee- Primary Chronic pain of right knee Primary osteoarthritis of right knee- Primary Primary osteoarthritis of right knee- Primary Chronic pain of right knee Primary osteoarthritis of right knee- Primary Acute pain of right knee Primary osteoarthritis of right knee- Primary Acute pain of right knee Rhabdomyolysis- Primary Rhabdomyolysis Acute pain of right knee High cholesterol Pure hypercholesterolemia Elevated troponin Other abnormal blood chemistry documented in this encounter [facility] Work Phone: Evaluation note* Diagnosis Primary osteoarthritis of right knee- Primary Chronic pain of right knee Primary osteoarthritis of right knee- Primary Primary osteoarthritis of right knee- Primary Chronic pain of right knee Primary osteoarthritis of right knee- Primary Acute pain of right knee Primary osteoarthritis of right knee- Primary Acute pain of right knee Rhabdomyolysis- Primary Rhabdomyolysis Acute pain of right knee High cholesterol Pure hypercholesterolemia Elevated troponin Other abnormal blood chemistry Hospital discharge follow-up- Primary Other follow-up examination Non-traumatic rhabdomyolysis Migraine without aura and without status migrainosus, not intractable documented in this encounter [facility] Work Phone: Evaluation note* Diagnosis Primary osteoarthritis of right knee- Primary Chronic pain of right knee Primary osteoarthritis of right knee- Primary Primary osteoarthritis of right knee- Primary Chronic pain of right knee Primary osteoarthritis of right knee- Primary Acute pain of right knee Primary osteoarthritis of right knee- Primary Acute pain of right knee Rhabdomyolysis Acute pain of right knee High cholesterol Pure hypercholesterolemia Elevated troponin Other abnormal blood chemistry Non-traumatic rhabdomyolysis- Primary Traumatic rhabdomyolysis, subsequent encounter Traumatic rhabdomyolysis, subsequent encounter Transaminitis Nonspecific elevation of levels of transaminase or lactic acid dehydrogenase (LDH) Elevated troponin Other abnormal blood chemistry Class 3 severe obesity due to excess calories without serious comorbidity with body mass index (BMI) of 40.0 to 44.9 in adult (Multi) Leukocytosis Leukocytosis, unspecified documented in this encounter [facility] Work Phone: Evaluation note* Diagnosis Primary osteoarthritis of right knee- Primary Chronic pain of right knee Primary osteoarthritis of right knee- Primary Primary osteoarthritis of right knee- Primary Chronic pain of right knee Primary osteoarthritis of right knee- Primary Acute pain of right knee Primary osteoarthritis of right knee- Primary Acute pain of right knee Rhabdomyolysis Acute pain of right knee High cholesterol Pure hypercholesterolemia Elevated troponin Other abnormal blood chemistry Hospital discharge follow-up- Primary Other follow-up examination Non-traumatic rhabdomyolysis Fatty liver Other chronic nonalcoholic liver disease documented in this encounter [facility] Work Phone: Evaluation note* Diagnosis Primary osteoarthritis of right knee- Primary Chronic pain of right knee Primary osteoarthritis of right knee- Primary Primary osteoarthritis of right knee- Primary Chronic pain of right knee Primary osteoarthritis of right knee- Primary Acute pain of right knee Primary osteoarthritis of right knee- Primary Acute pain of right knee Rhabdomyolysis Acute pain of right knee High cholesterol Pure hypercholesterolemia Elevated troponin Other abnormal blood chemistry Non-traumatic rhabdomyolysis- Primary documented in this encounter [facility] Work Phone: Evaluation note* Diagnosis Primary osteoarthritis of right knee- Primary Chronic pain of right knee Primary osteoarthritis of right knee- Primary Primary osteoarthritis of right knee- Primary Chronic pain of right knee Primary osteoarthritis of right knee- Primary Acute pain of right knee Primary osteoarthritis of right knee- Primary Acute pain of right knee Rhabdomyolysis Acute pain of right knee High cholesterol Pure hypercholesterolemia Elevated troponin Other abnormal blood chemistry Primary osteoarthritis of right knee- Primary Primary osteoarthritis of right knee documented in this encounter [facility] Work Phone: Evaluation note* Diagnosis Intractable migraine without aura and without status migrainosus- Primary Migraine without aura, with intractable migraine, so stated, without mention of status migrainosus [facility] Primary osteoarthritis of right knee- Primary Chronic pain of right knee Primary osteoarthritis of right knee- Primary Primary osteoarthritis of right knee- Primary Chronic pain of right knee Primary osteoarthritis of right knee- Primary Acute pain of right knee Primary osteoarthritis of right knee- Primary Acute pain of right knee Rhabdomyolysis Acute pain of right knee High cholesterol Pure hypercholesterolemia Elevated troponin Other abnormal blood chemistry Primary osteoarthritis of right knee- Primary Primary osteoarthritis of right knee Primary osteoarthritis of right knee documented in this encounter [facility] Work Phone: Evaluation note* Diagnosis Primary osteoarthritis of right knee- Primary Chronic pain of right knee Primary osteoarthritis of right knee- Primary Primary osteoarthritis of right knee- Primary Chronic pain of right knee Primary osteoarthritis of right knee- Primary Acute pain of right knee Primary osteoarthritis of right knee- Primary Acute pain of right knee Rhabdomyolysis Acute pain of right knee High cholesterol Pure hypercholesterolemia Elevated troponin Other abnormal blood chemistry Primary osteoarthritis of right knee- Primary Primary osteoarthritis of right knee Primary osteoarthritis of right knee Primary osteoarthritis of right knee documented in this encounter [facility] Work Phone: Evaluation note* Diagnosis Primary osteoarthritis of right knee- Primary Chronic pain of right knee Primary osteoarthritis of right knee- Primary Primary osteoarthritis of right knee- Primary Chronic pain of right knee Primary osteoarthritis of right knee- Primary Acute pain of right knee Primary osteoarthritis of right knee- Primary Acute pain of right knee Rhabdomyolysis Acute pain of right knee High cholesterol Pure hypercholesterolemia Elevated troponin Other abnormal blood chemistry Primary osteoarthritis of right knee- Primary Primary osteoarthritis of right knee Primary osteoarthritis of right knee Primary osteoarthritis of right knee documented in this encounter [facility] Work Phone: Evaluation note* Diagnosis Primary osteoarthritis of right knee- Primary Chronic pain of right knee Primary osteoarthritis of right knee- Primary Primary osteoarthritis of right knee- Primary Chronic pain of right knee Primary osteoarthritis of right knee- Primary Acute pain of right knee Primary osteoarthritis of right knee- Primary Acute pain of right knee Rhabdomyolysis Acute pain of right knee High cholesterol Pure hypercholesterolemia Elevated troponin Other abnormal blood chemistry Primary osteoarthritis of right knee- Primary Primary osteoarthritis of right knee Primary osteoarthritis of right knee Primary osteoarthritis of right knee Primary osteoarthritis of right knee Primary osteoarthritis of right knee documented in this encounter [facility] Work Phone: Evaluation note* Diagnosis Primary osteoarthritis of right knee- Primary Chronic pain of right knee Primary osteoarthritis of right knee- Primary Primary osteoarthritis of right knee- Primary Chronic pain of right knee Primary osteoarthritis of right knee- Primary Acute pain of right knee Primary osteoarthritis of right knee- Primary Acute pain of right knee Rhabdomyolysis Acute pain of right knee High cholesterol Pure hypercholesterolemia Elevated troponin Other abnormal blood chemistry Primary osteoarthritis of right knee- Primary Primary osteoarthritis of right knee Primary osteoarthritis of right knee Primary osteoarthritis of right knee Primary osteoarthritis of right knee Primary osteoarthritis of right knee documented in this encounter [facility] Work Phone: Evaluation note* Diagnosis Primary osteoarthritis of right knee- Primary Chronic pain of right knee Primary osteoarthritis of right knee- Primary Primary osteoarthritis of right knee- Primary Chronic pain of right knee Primary osteoarthritis of right knee- Primary Acute pain of right knee Primary osteoarthritis of right knee- Primary Acute pain of right knee Rhabdomyolysis Acute pain of right knee High cholesterol Pure hypercholesterolemia Elevated troponin Other abnormal blood chemistry Primary osteoarthritis of right knee- Primary Primary osteoarthritis of right knee Primary osteoarthritis of right knee Primary osteoarthritis of right knee Primary osteoarthritis of right knee Primary osteoarthritis of right knee Primary osteoarthritis of right knee Bilateral chronic knee pain documented in this encounter [facility] Work Phone: Evaluation note* Diagnosis Intractable migraine without aura and without status migrainosus- Primary Migraine without aura, with intractable migraine, so stated, without mention of status migrainosus [facility] NarrativePresents for annual exam. She voices no complaints and is doing well. Denies any bowel or bladder pr oblems. Denies any breast problems. Status post hysterectomy.[address] Work Phone: History of Present illness NarrativePresents for annual exam. She voices no complaints and is doing well. Denies any bowel or bladder problems. Denies any breast problems. She had previous hysterectomy. She started black cohosh for hermenopausal symptoms which does give her some relief but still has some difficulty in sleeping.[address] Work Phone: History of Present illness NarrativePatient is here today for evaluation of her right knee pain at the request of Star pelaez. She pallavi 46-year-old female with a multiple month history of right knee pain with no known injury. She locates the pain to the medial side with radiation up into the thigh. She has difficulty with maneuvering the gas pedal, standing from a seated position, sitting for long periods of time. She has a mostly sedentary job but she finds the need to get up and walk around at times. She is utilize ibuprofen and Tylenol. She rates her pain as an 8/10. She is attempted topical anti-inflammatories. She deniesany recent physical therapy injections or bracing.[facility] [address] Work Phone: History of Present illness Narrative* History of Present Illness * Patient presents with right knee pain for several years. The patient localizes the pain diffusely. There is increasing difficulty with activities of daily living and significant disability related tothe knee pain. The patient endorses the following failed non-operative treatments: Injections, activity modifications. There is increasing frustration with persistent pain and swelling and decreasingdistance of ambulation. * Pain is moderate, achy, diffuse. Better with rest, worse with activity. * Patient has had steroid injections in the past which have provided short course of relief. Presentstoday and hoping of getting approval for gel injection. * Review of Systems * GENERAL: Negative for malaise, significant weight loss, fever * MUSCULOSKELETAL: see HPI * NEURO: Negative * Exam * Right knee: * Skin healthy and intact * No gross swelling or ecchymosis * Alignment: Mild varus effusion: Mild ROM: 5 to 110 degrees * Crepitance with range of motion * No pain with internal rotation of the hip * Tenderness to palpation over medial and lateral joint line and with patellar compression * No laxity to valgus stress * No laxity to varus stress * Negative Zachariah s test * Negative posterior drawer test * Mild pain with Dana s test * Neurovascular exam normal distally * 2+ DP pulse and good cap refill * Radiographs * My interpretation as follows: Right knee severe varus degenerative joint disease with loss of jointspace, subchondral sclerosis and cystic changes, and osteophyte formation * Assessment * Patient with right severe knee osteoarthritis * Plan * We discussed with the patient the diagnosis of degenerative joint disease of the knee. We reviewed an evidence-based approach to osteoarthritis of the knee. * We strongly encouraged low-impact aerobic activity and non-opioid analgesics. * We discussed temporary pain relief with corticosteroid injections and the associated risks. We alsodiscussed the conflicting evidence regarding viscosupplementation and potential long-term risks with NSAID s. We reviewed the role of bracing for instability and physical therapy for atrophy and gait abnormalities. * The patient elected for gel injection today * Patient has failed activity modifications bracing as well as cortisone injections I recommend that we proceed with a hyaluronic injection into the knee to provide some pain relief. We will get this precertified she will return to clinic for injection of this. If she fails to improve with gel injection therapy may also consider a medial desktop engineer brace as well. As she is only 47 years old I do wantto wait to proceed with total knee arthroplasty if at all possible. She agrees with this. [facility] Work Phone: History of Present illness Narrative* History of Present Illness * 47-year-old female with history of moderate to severe right knee arthritis presents today for repeat evaluation and discussion. Currently states that she is a 2 or 3 out of pain last visit I did recommend that we proceed with hyaluronic acid injection however her insurance company denied this request. Patient has attempted many forms of injections in the past and cortisone injections have not provided her any relief was hoping to do this as she is only 47 years old and would likely benefit her. * Review of Systems * GENERAL: Negative for malaise, significant weight loss, fever * MUSCULOSKELETAL: see HPI * NEURO: Negative * Physical Exam * General: No acute distress, alert and oriented x3 * Right knee: * Skin healthy and intact * No gross swelling or ecchymosis * Alignment: Varus * Effusion: Mild * ROM: 10-1 10 * Crepitance with range of motion * No pain with internal rotation of the hip * Tenderness to palpation: Medial joint line * No laxity to valgus stress * No laxity to varus stress * Negative Zachariah s test * Negative posterior drawer test * Mild pain with Dana s test * Neurovascular exam normal distally * 2+ DP pulse and good cap refill * Imaging * None today * Assessment * 47-year-old female with moderate severe right knee arthritis * Plan * Discussed ultimate treatment for knee arthritis would be a total knee replacement patient is not interested in this at this point time of her life * Discussed importance of low impact exercise activities and the importance of weight loss in hopes of offloading the knee joint. * We will give patient prescription for naproxen to provide her some pain relief in the meantime * Regarding bracing okay for supportive braces however due to body habitus I do think that these may be difficult to wear * Weight-bear as tolerated activities as tolerated using pain as a guide. * Follow-up as needed * We did discuss the use of diagnostic knee arthroscopy, partial meniscectomy and debridement. Discussed that given patient's findings of moderate to severe arthritis in the knee I do not think that this will help her all that much and then a total knee replacement would likely be the best procedure for her. * Discussed the importance of weight loss and help offloading the knee. Follow- up as needed * . [facility] [address] Work Phone: History of Present illness Narrative* History of Present Illness * 47-year-old female with history of moderate to severe right knee arthritis presents today for repeat evaluation and discussion. Currently states that she is a 2 or 3 out of pain last visit I did recommend that we proceed with hyaluronic acid injection however her insurance company denied this request. Patient has attempted many forms of injections in the past and cortisone injections have not provided her any relief was hoping to do this as she is only 47 years old and would likely benefit her. * Review of Systems * GENERAL: Negative for malaise, significant weight loss, fever * MUSCULOSKELETAL: see HPI * NEURO: Negative * Physical Exam * General: No acute distress, alert and oriented x3 * Right knee: * Skin healthy and intact * No gross swelling or ecchymosis * Alignment: Varus * Effusion: Mild * ROM: 10-1 10 * Crepitance with range of motion * No pain with internal rotation of the hip * Tenderness to palpation: Medial joint line * No laxity to valgus stress * No laxity to varus stress * Negative Zachariah s test * Negative posterior drawer test * Mild pain with Dana s test * Neurovascular exam normal distally * 2+ DP pulse and good cap refill * Imaging * None today * Assessment * 47-year-old female with moderate severe right knee arthritis * Plan * Discussed ultimate treatment for knee arthritis would be a total knee replacement patient is not interested in this at this point time of her life * Discussed importance of low impact exercise activities and the importance of weight loss in hopes of offloading the knee joint. * We will give patient prescription for naproxen to provide her some pain relief in the meantime * Regarding bracing okay for supportive braces however due to body habitus I do think that these may be difficult to wear * Weight-bear as tolerated activities as tolerated using pain as a guide. * Follow-up as needed * We did discuss the use of diagnostic knee arthroscopy, partial meniscectomy and debridement. Discussed that given patient's findings of moderate to severe arthritis in the knee I do not think that this will help her all that much and then a total knee replacement would likely be the best procedure for her. * Discussed the importance of weight loss and help offloading the knee. Follow- up as needed * . -[facility] Work Phone: Reason for referral (narrative)* Consultation (Routine) - Authorized Specialty Diagnoses / Procedures Referred By Phil gibbs Referred To Contact Primary Care Diagnoses Class 3 severe obesity due to excess calories without serious comorbidity with body mass index (BMI) of 40.0 to 44.9 in adult (Multi) Procedures Follow Up In Primary Care - Established Bridger Edouard MD [address] [facility], [facility] [address] [place] [address] Referral ID Status Reason Start Date Expiration Date V isits Requested Visits Authorized [id number] Authorized 07/14/2023 07/13/2024 1 1 [facility] Work Phone: reason for referral (narrative)* Consultation (Routine) - Authorized Specialty Diagnoses / Procedures Referred By Contac t Referred To Contact Orthopaedic Surgery / Orthopedic Surgery Diagnoses Primary osteoarthritis of right knee Procedures Follow Up In Orthopaedic Surgery Elif Miller INSTRUMENT LENS GRINDER-CHIMNEY BUILDER [address] [facility], [place] [phone] Referral ID Status Reason Start Date Expiration Date V isits Requested Visits Authorized [id number] Authorized 07/16/2023 07/15/2024 1 1 [facility] Work Phone: reason for referral (narrative)* Consultation (Routine) - Authorized Specialty Diagnoses / Procedures Referred By Contac t Referred To Contact Orthopaedic Surgery / Orthopedic Surgery Diagnoses Primary osteoarthritis of right knee Procedures Follow Up In Orthopaedic Surgery Elif Miller INSTRUMENT LENS GRINDER-CHIMNEY BUILDER [address] [facility], [place] [phone] Referral ID Status Reason Start Date Expiration Date V isits Requested Visits Authorized [id number] Authorized 07/23/2023 07/22/2024 1 1 * Consultation (Routine) - Authorized Specialty Diagnoses / Procedures Referred By Contac t Referred To Contact Orthopaedic Surgery / Orthopedic Surgery Diagnoses Primary osteoarthritis of right knee Procedures Follow Up In Orthopaedic Surgery Elif Miller INSTRUMENT LENS GRINDER-CHIMNEY BUILDER [address] [facility], [place] [phone] Referral ID Status Reason Start Date Expiration Date V isits Requested Visits Authorized [id number] Authorized 07/23/2023 07/22/2024 1 1 [facility] Work Phone: Reulal for referral (narrative)* Consultation (Routine) - Authorized Specialty Diagnoses / Procedures Referred By Phil gibbs Referred To Contact Primary Care Diagnoses Class 3 severe obesity due to excess calories without serious comorbidity with body mass index (BMI) of 40.0 to 44.9 in adult (Multi) Procedures Follow Up In Primary Care - Established Bridger Eoduard MD [address] [facility], [place] [address] Referral ID Status Reason Start Date Expiration Date V isits Requested Visits Authorized [id number] Authorized 2023 08/14/2024 1 1 [facility] Work Phone: Redjed for referral (narrative)No reason for referral information [facility] Work Phone: Reason for visit Narrative* Initial Evaluation . Dx: M17.11. * Referred by: [facility] Work Phone: reason for visit Narrative* CV Imaging (Routine) - Authorized Specialty Diagnoses / Procedures Referred By Phil gibbs Referred To Contact Cardiology Diagnoses Elevated troponin I level Non-traumatic rhabdomyolysis Procedures Transthoracic Echo (TTE) Limited MI ECHO TRANSTHORC R-T 2D W/WO M-MODE REC F-UP/LMTD MI DOP ECHOCARD COLOR FLOW VELOCITY MAPPING MI DOP ECHOCARD PULSE WAVE W/SPECTRAL F-UP/LMTD STD Bridger Edouard MD [address] [facility], [address] [address] Phone: tel: fax: [facility] [address] [place] [address] Phone: tel: fax: Referral ID Status Reason Start Date Expiration Date Visits Requested Visits Authorized [id number] Authorized Perform Procedure 10/1111/20/2024 1 1 [facility] Work Phone: Reason for visit Narrative* Imaging (Routine) - Authorized Specialty Diagnoses / Procedures Referred By Phil t Referred To Contact Radiology Diagnoses Primary osteoarthritis of right knee Procedures XR knee right 4+ views Golden Maradiaga MD [address] [place] [address] Phone: tel: fax: Referral ID Status Reason Start Date Expiration Date Visits Requested Visits Authorized [id number] Authorized Perform Procedure 04/22/2024 04/22/2025 1 1 [facility] Work Phone: Summary Purpose Family History No Family History Records Found Grandmother Name Dates Details Family history of malignant neoplasm of breast(V16.3, Z80.3) Status:Active Father Name Dates Details Family history of hyperlipid emia(V18.19, Z83.438) Status:Active Family history of myocardial infarction(V17.3, Z82.49) Status:Active Grandmother Name Dates Details Family history of malignant neoplasm of breast(V16.3, Z80.3) Status:Active Father Name Dates Details Family history of hyperlipid emia(V18.19, Z83.438) Status:Active Family history of myocardial infarction(V17.3, Z82.49) Status:Active Grandmother Name Dates Details Family history of malignant neoplasm of breast(V16.3, Z80.3) Status:Active Father Name Dates Details Family history of hyperlipid emia(V18.19, Z83.438) Status:Active Family history of myocardial infarction(V17.3, Z82.49) Status:Active Grandmother Name Dates Details Family history of malignant neoplasm of breast(V16.3, Z80.3) Status:Active Father Name Dates Details Family history of hyperlipid emia(V18.19, Z83.438) Status:Active Family history of myocardial infarction(V17.3, Z82.49) Status:Active Grandmother Name Dates Details Family history of malignant neoplasm of breast(V16.3, Z80.3) Status:Active Mother Name Dates Details No pertinent family history( V49.89, Z78.9) Status:Active Father Name Dates Details Family history of hyperlipid emia(V18.19, Z83.438) Status:Active Family history of myocardial infarction(V17.3, Z82.49) Status:Active Grandmother Name Dates Details Family history of malignant neoplasm of breast(V16.3, Z80.3) Status:Active Mother Name Dates Details No pertinent family history( V49.89, Z78.9) Status:Active Father Name Dates Details Family history of hyperlipid emia(V18.19, Z83.438) Status:Active Family history of myocardial infarction(V17.3, Z82.49) Status:Active Grandmother Name Dates Details Family history of malignant neoplasm of breast(V16.3, Z80.3) Status:Active Father Name Dates Details Family history of hyperlipid emia(V18.19, Z83.438) Status:Active Family history of myocardial infarction(V17.3, Z82.49) Status:Active Grandmother Name Dates Details Family history of malignant neoplasm of breast(V16.3, Z80.3) Status:Active Mother Name Dates Details No pertinent family history( V49.89, Z78.9) Status:Active Father Name Dates Details Family history of hyperlipid emia(V18.19, Z83.438) Status:Active Family history of myocardial infarction(V17.3, Z82.49) Status:Active Grandmother Name Dates Details Family history of malignant neoplasm of breast(V16.3, Z80.3) Status:Active Mother Name Dates Details No pertinent family history( V49.89, Z78.9) Status:Active Father Name Dates Details Family history of hyperlipid emia(V18.19, Z83.438) Status:Active Family history of myocardial infarction(V17.3, Z82.49) Status:Active Unknown Family Member Name Dates Details Family history of hyperlipid emia: Father(V18.19, Z83.438) Status:Active Family history of malignant neoplasm of breast: Paternal Grandmother(V16.3, Z80.3) Status:Active Family history of myocardial infarction: Father(V17.3, Z82.49) Comments:x2; Status:Active No pertinent family history: Mother(V49.89, Z78.9) Status:Active Unknown Family Member Name Dates Details Family history of hyperlipid emia: Father(V18.19, Z83.438) Status:Active Family history of malignant neoplasm of breast: Paternal Grandmother(V16.3, Z80.3) Status:Active Family history of myocardial infarction: Father(V17.3, Z82.49) Comments:x2; Status:Active No pertinent family history: Mother(V49.89, Z78.9) Status:Active Unknown Family Member Name Dates Details Family history of hyperlipid emia: Father(V18.19, Z83.438) Status:Active Family history of malignant neoplasm of breast: Paternal Grandmother(V16.3, Z80.3) Status:Active Family history of myocardial infarction: Father(V17.3, Z82.49) Comments:x2; Status:Active No pertinent family history: Mother(V49.89, Z78.9) Status:Active Relationship Condition Age at Onset Recorded Date/T janette grandmother Malignant neoplasm of breast Unknown father Cardiac disease Unknown Unknown Family Member Name Dates Details Family history of hyperlipid emia: Father(V18.19, Z83.438) Status:Active Family history of malignant neoplasm of breast: Paternal Grandmother(V16.3, Z80.3) Status:Active Family history of myocardial infarction: Father(V17.3, Z82.49) Comments:x2; Status:Active No pertinent family history: Mother(V49.89, Z78.9) Status:Active Unknown Family Member Name Dates Details Family history of hyperlipid emia: Father(V18.19, Z83.438) Status:Active Family history of malignant neoplasm of breast: Paternal Grandmother(V16.3, Z80.3) Status:Active Family history of myocardial infarction: Father(V17.3, Z82.49) Comments:x2; Status:Active No pertinent family history: Mother(V49.89, Z78.9) Status:Active Unknown Family Member Name Dates Details Family history of hyperlipid emia: Father(V18.19, Z83.438) Status:Active Family history of malignant neoplasm of breast: Paternal Grandmother(V16.3, Z80.3) Status:Active Family history of myocardial infarction: Father(V17.3, Z82.49) Comments:x2; Status:Active No pertinent family history: Mother(V49.89, Z78.9) Status:Active Unknown Family Member Name Dates Details Family history of hyperlipid emia: Father(V18.19, Z83.438) Status:Active Family history of malignant neoplasm of breast: Paternal Grandmother(V16.3, Z80.3) Status:Active Family history of myocardial infarction: Father(V17.3, Z82.49) Comments:x2; Status:Active No pertinent family history: Mother(V49.89, Z78.9) Status:Active Unknown Family Member Name Dates Details Family history of hyperlipid emia: Father(V18.19, Z83.438) Status:Active Family history of malignant neoplasm of breast: Paternal Grandmother(V16.3, Z80.3) Status:Active Family history of myocardial infarction: Father(V17.3, Z82.49) Comments:x2; Status:Active No pertinent family history: Mother(V49.89, Z78.9) Status:Active Unknown Family Member Name Dates Details Family history of hyperlipid emia: Father(V18.19, Z83.438) Status:Active Family history of malignant neoplasm of breast: Paternal Grandmother(V16.3, Z80.3) Status:Active Family history of myocardial infarction: Father(V17.3, Z82.49) Comments:x2; Status:Active No pertinent family history: Mother(V49.89, Z78.9) Status:Active Unknown Family Member Name Dates Details Family history of hyperlipid emia: Father(V18.19, Z83.438) Status:Active Family history of malignant neoplasm of breast: Paternal Grandmother(V16.3, Z80.3) Status:Active Family history of myocardial infarction: Father(V17.3, Z82.49) Comments:x2; Status:Active No pertinent family history: Mother(V49.89, Z78.9) Status:Active Unknown Family Member Name Dates Details Family history of hyperlipid emia: Father(V18.19, Z83.438) Status:Active Family history of malignant neoplasm of breast: Paternal Grandmother(V16.3, Z80.3) Status:Active Family history of myocardial infarction: Father(V17.3, Z82.49) Comments:x2; Status:Active No pertinent family history: Mother(V49.89, Z78.9) Status:Active Unknown Family Member Name Dates Details Family history of hyperlipid emia: Father(V18.19, Z83.438) Status:Active Family history of malignant neoplasm of breast: Paternal Grandmother(V16.3, Z80.3) Status:Active Family history of myocardial infarction: Father(V17.3, Z82.49) Comments:x2; Status:Active No pertinent family history: Mother(V49.89, Z78.9) Status:Active Unknown Family Member Name Dates Details Family history of hyperlipid emia: Father(V18.19, Z83.438) Status:Active Family history of malignant neoplasm of breast: Paternal Grandmother(V16.3, Z80.3) Status:Active Family history of myocardial infarction: Father(V17.3, Z82.49) Comments:x2; Status:Active No pertinent family history: Mother(V49.89, Z78.9) Status:Active Unknown Family Member Name Dates Details Family history of hyperlipid emia: Father(V18.19, Z83.438) Status:Active Family history of malignant neoplasm of breast: Paternal Grandmother(V16.3, Z80.3) Status:Active Family history of myocardial infarction: Father(V17.3, Z82.49) Comments:x2; Status:Active No pertinent family history: Mother(V49.89, Z78.9) Status:Active Unknown Family Member Name Dates Details Family history of hyperlipid emia: Father(V18.19, Z83.438) Status:Active Family history of malignant neoplasm of breast: Paternal Grandmother(V16.3, Z80.3) Status:Active Family history of myocardial infarction: Father(V17.3, Z82.49) Comments:x2; Status:Active No pertinent family history: Mother(V49.89, Z78.9) Status:Active Unknown Family Member Name Dates Details Family history of hyperlipid emia: Father(V18.19, Z83.438) Status:Active Family history of malignant neoplasm of breast: Paternal Grandmother(V16.3, Z80.3) Status:Active Family history of myocardial infarction: Father(V17.3, Z82.49) Comments:x2; Status:Active No pertinent family history: Mother(V49.89, Z78.9) Status:Active Unknown Family Member Name Dates Details Family history of hyperlipid emia: Father(V18.19, Z83.438) Status:Active Family history of malignant neoplasm of breast: Paternal Grandmother(V16.3, Z80.3) Status:Active Family history of myocardial infarction: Father(V17.3, Z82.49) Comments:x2; Status:Active No pertinent family history: Mother(V49.89, Z78.9) Status:Active Unknown Family Member Name Dates Details Family history of hyperlipid emia: Father(V18.19, Z83.438) Status:Active Family history of malignant neoplasm of breast: Paternal Grandmother(V16.3, Z80.3) Status:Active Family history of myocardial infarction: Father(V17.3, Z82.49) Comments:x2; Status:Active No pertinent family history: Mother(V49.89, Z78.9) Status:Active Unknown Family Member Name Dates Details Family history of hyperlipid emia: Father(V18.19, Z83.438) Status:Active Family history of malignant neoplasm of breast: Paternal Grandmother(V16.3, Z80.3) Status:Active Family history of myocardial infarction: Father(V17.3, Z82.49) Comments:x2; Status:Active No pertinent family history: Mother(V49.89, Z78.9) Status:Active Unknown Family Member Name Dates Details Family history of hyperlipid emia: Father(V18.19, Z83.438) Status:Active Family history of malignant neoplasm of breast: Paternal Grandmother(V16.3, Z80.3) Status:Active Family history of myocardial infarction: Father(V17.3, Z82.49) Comments:x2; Status:Active No pertinent family history: Mother(V49.89, Z78.9) Status:Active Unknown Family Member Name Dates Details Family history of hyperlipid emia: Father(V18.19, Z83.438) Status:Active Family history of malignant neoplasm of breast: Paternal Grandmother(V16.3, Z80.3) Status:Active Family history of myocardial infarction: Father(V17.3, Z82.49) Comments:x2; Status:Active No pertinent family history: Mother(V49.89, Z78.9) Status:Active Unknown Family Member Name Dates Details Family history of hyperlipid emia: Father(V18.19, Z83.438) Status:Active Family history of malignant neoplasm of breast: Paternal Grandmother(V16.3, Z80.3) Status:Active Family history of myocardial infarction: Father(V17.3, Z82.49) Comments:x2; Status:Active No pertinent family history: Mother(V49.89, Z78.9) Status:Active Unknown Family Member Name Dates Details Family history of hyperlipid emia: Father(V18.19, Z83.438) Status:Active Family history of malignant neoplasm of breast: Paternal Grandmother(V16.3, Z80.3) Status:Active Family history of myocardial infarction: Father(V17.3, Z82.49) Comments:x2; Status:Active No pertinent family history: Mother(V49.89, Z78.9) Status:Active Unknown Family Member Name Dates Details Family history of hyperlipid emia: Father(V18.19, Z83.438) Status:Active Family history of malignant neoplasm of breast: Paternal Grandmother(V16.3, Z80.3) Status:Active Family history of myocardial infarction: Father(V17.3, Z82.49) Comments:x2; Status:Active No pertinent family history: Mother(V49.89, Z78.9) Status:Active Advance Directives No Advanced Directives Records FoundDocuments on File Type Date Recorded 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 Expl anation Advance Directives and Living Will Date Activated Date Inactivated Comments 10/18/2023 3:32 AM Question Answer Comments Plan of Care: Code Status Discussion Completed Decision Maker: Patient Date Activated Date Inactivated Comments 10/18/2023 3:32 AM Question Answer Comments Plan of Care: Code Status Discussion Completed Decision Maker: Patient Assessments Diagnosis Hyperlipidemia, unspecified hyperlipidemia type Diagnosis Hyperlipidemia, unspecified hyperlipidemia type - Primary Diagnosis Hyperlipidemia, unspecified hyperlipidemia type- Primary Diagnosis Intractable migraine without aura and without status migrainosus- Primary Migraine without aura, with intractable migraine, so stated, without mention of status migrainosus Chronic migraine without aura without status migrainosus, not intractable Chronic migraine without aura, without mention of intractable migraine without mention of status migrainosus Diagnosis Intractable migraine without aura and without status migrainosus- Primary Migraine without aura, with intractable migraine, so stated, without mention of status migrainosus Chronic migraine without aura without status migrainosus, not intractable Chronic migraine without aura, without mention of intractable migraine without mention of status migrainosus History of Present Illness * Brianna Meléndez RN - 10/07/2016 1:40 PM EDT Review of Systems Constitution: Negative for diaphoresis, malaise/fatigue, weight gain and weight loss. HENT: Negative for hearing loss, nosebleeds and tinnitus. Eyes: Negative for blurred vision and visual disturbance. Cardiovascular: Negative for chest pain, claudication, cyanosis, dyspnea on exertion, irregular heartbeat, leg swelling, near-syncope, orthopnea, palpitations, paroxysmal nocturnal dyspnea and syncope. Respiratory: Negative for hemoptysis, shortness of breath and snoring. Endocrine: Negative for cold intolerance and heat intolerance. Hematologic/Lymphatic: Does not bruise/bleed easily. Skin: Negative for flushing, poor wound healing and rash. Musculoskeletal: Negative for back pain, muscle weakness and myalgias. Gastrointestinal: Negative for abdominal pain, change in bowel habit, melena, nausea and vomiting. Genitourinary: Negative for decreased libido and hematuria. Neurological: Negative for loss of balance and numbness. Psychiatric/Behavioral: Negative for memory loss. The patient is not nervous/anxious. * Jaclyn Meneses MD - 10/07/2016 1:35 PM EDT Formatting of this note may be different from the original. OFFICE CONSULTATION NOTE [facility] [address] ([address]) [facility] [address] [facility] [id number] Physicians: Ayla Subramanian MD (Family); No ref. provider found (Referring) Subjective: Suraj Hawk is a 41 y.o. female seen in the office today for Follow-up (yearly) She is feeling well she denies chest pain, lightheadedness, shortness of breath, edema. Assessment & Plan: HLD (hyperlipidemia) Labs done September 14, 2016 show normal liver functions, total cholesterol 275, triglyceride 100, HDL 56, LDL 199. These are very close to the values obtained last year when she was taking Niaspan. I plugged her numbers into the risk calculator and she has 1.8% risk for a cardiac event in the next 10 years. This is largely attributable to her young age and lack of smoking or hypertension. I was ableto reassure her. Her concerns are about her father having a heart attack when he was in his mid 40showever he was a smoker and also used alcohol fairly frequently. We will plan on another appointment in a year with lipid preceding Obesity today her weight is down 8 pounds from last year. This is a big improvement because her weight have been going up with each annual visit. We discussed diet and exercise and she is making somechanges that would be very helpful for her lifestyle if she can follow through and continue these. She is also going to start walking. Over half of the visit was spent in [id number] counseling time. Orders placed this encounter: Orders Placed This Encounter Procedures Lipid Panel Standing Status: Future Standing Expiration Date: 10/07/2017 Follow Up Ordered: Return in about 1 year (around 10/07/2017). Patient's Medications New Prescriptions No medications on file Previous Medications ELETRIPTAN HBR (RELPAX ORAL) Take 1 capsule by mouth as needed. LEVONORGESTREL-ETHINYL ESTRADIOL (NORDETTE) 0.15-0.03 MG PER TABLET Take 1 tablet by mouth daily. LORATADINE (CLARITIN) 10 MG TABLET Take 10 mg by mouth daily. MONTELUKAST (SINGULAIR) 10 MG TABLET Take 10 mg by mouth nightly. NAPROXEN SODIUM (ANAPROX ORAL) Take 1 capsule by mouth as needed. PYRIDOXINE, VITAMIN B6, (VITAMIN B-6) 100 MG TABLET Take 100 mg by mouth 2 (two) times a day. SERTRALINE (ZOLOFT) 50 MG TABLET Take 50 mg by mouth daily. Modified Medications No medications on file Discontinued Medications CETIRIZINE (ZYRTEC) 10 MG TABLET Take 10 mg by mouth daily. FLUTICASONE (FLOVENT HFA) 220 MCG/ACTUATION INHALER Inhale 1 puff 2 (two) times a day Rinse mouth after each use . NIACIN 500 MG ER TABLET Take 1 tablet (500 mg total) by mouth nightly. Histories: Past Medical History: Diagnosis Date Environmental allergies High cholesterol Migraines Past Surgical History: Procedure Laterality Date SECTION CYST REMOVAL FOOT SURGERY Family History Problem Relation Age of Onset Heart attack Father Social History Substance Use Topics Smoking status: Never Smoker Smokeless tobacco: Never Used Alcohol use Yes Comment: rarely Allergies Allergen Reactions Sulfa (Sulfonamide Antibiotics) Review of Systems Constitution: Negative for malaise/fatigue. Cardiovascular: Negative for chest pain, claudication, dyspnea on exertion, irregular heartbeat, leg swelling, near-syncope, orthopnea, palpitations, paroxysmal nocturnal dyspnea and syncope. Respiratory: Negative for shortness of breath. Psychiatric/Behavioral: The patient does not have insomnia. Overview of Problems Addressed: Problem Hld (Hyperlipidemia) Labs on September 14, 2016 LFTs are fine, total cholesterol 275, triglyceride 100, HDL 56, LDL 199. Objective: Vitals: BP 105/76 (BP Location: Left arm, Patient Position: Sitting, BP Cuff Size: X- large Adult) Pulse 89 Ht 5' 1 Wt 100.4 kg (221 lb 4.8 oz) SpO2 97% BMI 41.81 kg/m2 Physical Exam Constitutional: She is oriented to person, place, and time. She appears well- developed and well-nourished. HENT: Head: Normocephalic. Eyes: Conjunctivae are normal. No scleral icterus. Neck: Neck supple. No JVD present. Carotid bruit is not present. No thyromegaly present. Cardiovascular: Normal rate, regular rhythm, S1 normal, S2 normal, normal heart sounds and intact distal pulses. PMI is not displaced. Exam reveals no gallop and no friction rub. No murmur heard. No carotid bruits Pulmonary/Chest: Breath sounds normal. She has no wheezes. She has no rales. Abdominal: Soft. She exhibits no abdominal bruit. Aorta nonpalpable. Musculoskeletal: Normal range of motion. She exhibits no edema. Neurological: She is alert and oriented to person, place, and time. Skin: Skin is warm and dry. No cyanosis. Nails show no clubbing. Psychiatric: She has a normal mood and affect. Her behavior is normal. Nursing note and vitals reviewed. SNOMED CT(R) 1. Hyperlipidemia, unspecified hyperlipidemia type HYPERLIPIDEMIA Jaclyn Meneses MD 10/07/2016 in this encounter* Farideh Puentes, CHIMNEY BUILDER - 10/29/2018 7:31 AM EDT Subjective: Ayla Subramanian MD Suraj Hawk is a 43 y.o. female seen in the office today for Follow-up (1 YEAR FOLLOW UP. DENIES ANY DIFFICULTIES) . HPI: [facility] [place] office on October 29, 2018. She has a 43-year-old female with history of environmental allergies, obesity, hyperlipidemia and migraines. She is followed by Dr. Meneses. Her overall cardiac risk was calculated by Dr. Meneses at 0.8%. She has family history of her father having myocardial infarction in mid 40s. He was a smoker and drank alcohol. EKG in the office today normal sinus rhythm with nonspecific ST abnormality. She denies any chest pain, shortness of breath, lightheadedness or palpitations. Her weight is up 15 pounds since she was seen by Dr. Meneses last year. Cholesterol profile last year cholesterol 239 triglycerides 57 HDL 56 LDL 172. Cholesterols this year total cholesterol 224 triglycerides 96 HDL 49 LDL 156. We discussed starches and sugars since her triglycerides have increased. We also discussed adding a walking program to help with her HDL. Histories: Past Medical History: Diagnosis Date Environmental allergies High cholesterol Migraines Past Surgical History: Procedure Laterality Date ABLATION WITH PHENOL SECTION CYST REMOVAL FOOT SURGERY HYSTERECTOMY TUBAL LIGATION Family History Problem Relation Age of Onset Heart attack Father Social History Tobacco Use Smoking status: Never Smoker Smokeless tobacco: Never Used Substance Use Topics Alcohol use: Yes Comment: rarely Drug use: No Patient's Medications New Prescriptions No medications on file Previous Medications LORATADINE (CLARITIN) 10 MG TABLET Take 10 mg by mouth daily. MONTELUKAST (SINGULAIR) 10 MG TABLET Take 10 mg by mouth nightly. SERTRALINE (ZOLOFT) 50 MG TABLET Take 50 mg by mouth daily. Modified Medications No medications on file Discontinued Medications TOPIRAMATE (TOPAMAX) 50 MG TABLET Take 50 mg by mouth nightly. Allergies Allergen Reactions Nickel Sulfa (Sulfonamide Antibiotics) Review of Systems Constitution: Negative for decreased appetite, malaise/fatigue and weight gain. HENT: Negative for hearing loss. Eyes: Negative for blurred vision and visual disturbance. Cardiovascular: Negative for chest pain, claudication, dyspnea on exertion, irregular heartbeat, leg swelling, near-syncope, orthopnea, palpitations, paroxysmal nocturnal dyspnea and syncope. Respiratory: Negative for cough, shortness of breath, sleep disturbances due to breathing, snoring and wheezing. Endocrine: Negative for cold intolerance and heat intolerance. Hematologic/Lymphatic: Negative for bleeding problem. Does not bruise/bleed easily. Skin: Negative for flushing and rash. Musculoskeletal: Negative for back pain, falls and myalgias. Gastrointestinal: Negative for abdominal pain, change in bowel habit and heartburn. Genitourinary: Negative for frequency and hematuria. Neurological: Negative for disturbances in coordination, dizziness, headaches, light-headedness, paresthesias and weakness. Psychiatric/Behavioral: Negative for altered mental status and depression. Allergic/Immunologic: Negative for environmental allergies and persistent infections. Objective: Physical Exam Constitutional: She is oriented to person, place, and time. She appears well- developed and well-nourished. No distress. HENT: Head: Normocephalic and atraumatic. Mouth/Throat: Oropharynx is clear and moist. Eyes: Pupils are equal, round, and reactive to light. Conjunctivae and lids are normal. Right eye exhibits no discharge. Left eye exhibits no discharge. Neck: Normal range of motion. Neck supple. No hepatojugular reflux and no JVD present. Carotid bruit is not present. No thyromegaly present. Cardiovascular: Normal rate, regular rhythm, S1 normal, S2 normal, normal heart sounds and normal pulses. PMI is not displaced. Exam reveals no gallop. No murmur heard. Pulmonary/Chest: Effort normal and breath sounds normal. No respiratory distress. She has no wheezes. She has no rales. Abdominal: Soft. Bowel sounds are normal. She exhibits no mass. There is no hepatosplenomegaly. There is no tenderness. Musculoskeletal: Normal range of motion. General: No edema. Neurological: She is alert and oriented to person, place, and time. Gait normal. Skin: Skin is warm, dry and intact. No rash noted. She is not diaphoretic. Psychiatric: She has a normal mood and affect. Her behavior is normal. Vitals reviewed. Vitals: Vitals: 10/29/18 0740 BP: 104/70 Pulse: 81 Resp: 16 SpO2: 96% Weight: 106.3 kg (234 lb 6.4 oz) Height: 5' 1 EKG Interpretation: Normal sinus rhythm with nonspecific T wave abnormality Lab Review: No visits with results within 6 Month(s) from this visit. Latest known visit with results is: No results found for any previous visit. Assessment & Plan: HLD (hyperlipidemia) As stated in HPI her triglycerides and HDL got a little worse and her total cholesterol and LDL were improved. We talked about reducing starches and sugars from her diet. We also discussed adding a walking program with weight loss Orders Placed This Encounter ECG 12 lead Standing Status: Future Number of Occurrences: 1 Standing Expiration Date: 10/30/2019 Other Tests Ordered: No orders of the defined types were placed in this encounter. Follow Up Ordered: Return in about 1 year (around 10/30/2019) for Sheri. Farideh Puentes CNP Referring No ref. provider found documented in this encounter* Alexandra Norton DO - 10/29/2019 8:20 AM EDT Suraj Hawk 44 y.o. female CHIEF COMPLAINT: Headache HISTORY OF PRESENT ILLNESS: Edwina follows on 10/29/2019. She is a 44-year-old woman with chronic migraine, hormonally relatedand improved after she went off of oral contraceptives. We tapered her Topamax, and she has had some rebound weight gain. She is status post hysterectomy, and her headaches are doing very well. 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-will be [place] next year Sleep:troubled- 5-6 hours Caffeine:quit pop Head trauma: Water consumption:60-80 Missed meals: Exercise:none Depression: Zoloft 100 mg - ALLERGIES: Allergies Allergen Reactions Sulfa Antibiotics PAST MEDICAL HISTORY: Past Medical History: Diagnosis Date Migraine SOCIAL HISTORY: Social History Socioeconomic History Marital status: Spouse name: Not on file Number of children: Not on file Years of education: Not on file Highest education level: Not on file Occupational History Not on file Social Needs Financial resource strain: Not on file Food insecurity Worry: Not on file Inability: Not on file Transportation needs Medical: Not on file Non-medical: Not on file Tobacco Use Smoking status: Never Smoker Smokeless tobacco: Never Used Substance and Sexual Activity Alcohol use: Yes Comment: rarely Drug use: No Sexual activity: Not on file Lifestyle Physical activity Days per week: Not on file Minutes per session: Not on file Stress: Not on file Relationships Social connections Talks on phone: Not on file Gets together: Not on file Attends sikh service: Not on file Active member of club or organization: Not on file Attends meetings of clubs or organizations: Not on file Relationship status: Not on file Intimate partner violence Fear of current or ex partner: Not on file Emotionally abused: Not on file Physically abused: Not on file Forced sexual activity: Not on file Other Topics Concern Not on file Social History Narrative Not on file 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 PRIOR TO VISIT: Current Outpatient Medications: Albuterol Sulfate (PROAIR HFA IN), Inhale as needed., Disp: , Rfl: Budesonide-Formoterol Fumarate (SYMBICORT IN), take by inhalation., Disp: , Rfl: Cetirizine HCl (ZYRTEC ALLERGY PO), take by mouth as needed., Disp: , Rfl: Coenzyme Q10 (COQ10 PO), take by mouth., Disp: , Rfl: eletriptan (Relpax) 40 MG tablet, 1 po prn headache may repeat ONCE in 2 hours if necessary, Disp: 9 tablet, Rfl: 11 Levonorgestrel-Ethinyl Estrad (LILLOW PO), Take by mouth., Disp: , Rfl: Loratadine (CLARITIN PO), take by mouth., Disp: , Rfl: Montelukast Sodium (SINGULAIR PO), take by mouth., Disp: , Rfl: naproxen sodium (Anaprox DS) 550 MG tablet, 1 po prn headache 1 po prn headache may repeat in 2 hours, Disp: 15 tablet, Rfl: 11 Niacin, Antihyperlipidemic, (NIASPAN PO), take by mouth., Disp: , Rfl: Riboflavin 100 MG Tab, take 100 mg by mouth., Disp: , Rfl: Sertraline HCl (ZOLOFT PO), take by mouth., Disp: , Rfl: SUMAtriptan Succinate (Imitrex STATdose System) 4 MG/0.5ML Solution Auto- injector, 1 sub q dose prnheadache, may repeat in 2 hours; no more than 2 a day, Disp: 3 mL, Rfl: 3 topiramate 50 MG Tab, 1 at bed, Disp: 30 tablet, Rfl: 1 lamoTRIgine 25 MG Tab, 1 po q pm for one week, then 2 po q pm for one week, then 3 po q pm for one week, then 4 po q pm. STOP for rash (Patient not taking: Reported on 05/02/2017 ), Disp: 100 tablet, Rfl: 4 PHYSICAL EXAM: Blood pressure 116/69, pulse 85, temperature 98.1 F (36.7 C), temperature source Temporal, resp. rate 16, height 1.549 m (5' 1), weight 108.3 kg (238 lb 11.2 oz), SpO2 98 %. Body mass index is 45.1 kg/m . Her speech is fluent without dysarthria or dysphasia Heart regular rate rhythm without murmur or ectopy No bruits auscultated carotids Gait and Station normal No evidence of distal clubbing cyanosis or edema ASSESSMENT/IMPRESSION: Problem List Items Addressed This Visit Cardiovascular Intractable migraine without aura and without status migrainosus - Primary Other Visit Diagnoses Chronic migraine without aura without status migrainosus, not intractable Relevant Medications naproxen sodium (Anaprox DS) 550 MG tablet eletriptan (Relpax) 40 MG tablet PLAN: Eletriptan/stat dose as need Follow-up 1 year Alexandra Norton DO documented in this encounter* Alexandra Norton DO - 10/23/2018 8:20 AM EDT Suraj Hawk 43 y.o. female CHIEF COMPLAINT: Headache HISTORY OF PRESENT ILLNESS: Edwina follows in the Neurology clinic on 10/23/2018. She is a 43-year-old woman with chronic migraine, hormonally related and improved after she went up oral contraceptives. Since her last visit she has tapered off Topamax, she has had some rebound weight gain. She is also status post hysterectomy. She takes generic Eletriptan 40 mg for moderate headache. MIDAS 1 previous MIDAS 4 Age at headache onset:chronic Family history of headache:son Duration/Location of headache: Frequency of headache: sometimes goes a month without any Aura: NA Miss work/activities: none Triggers:none Nausea/Vomiting/Photo/Sono: Neuro symptoms associated: OTC medication frequency: none Prescribed preventive meds: Topamax Prescribed abortive meds: hasn't used stat dose in 1 year /Naproxen Evaluation(scans): normal in past Laboratory investigations: TSH normal REVIEW OF SYSTEMS: Children 15 and 11- going to [facility] soon back home from being deployed Partial hysterectomy in June Sleep: 4 hours /usually 5-trouble falling asleep Caffeine:quit drinking pop /[employer] refreshers Head trauma: Water consumption:60-80 oz Missed meals: Exercise: none Depression: Gets massages ALLERGIES: Allergies Allergen Reactions Sulfa Antibiotics PAST MEDICAL HISTORY: Past Medical History: Diagnosis Date Migraine SOCIAL HISTORY: Social History Socioeconomic History Marital status: Spouse name: Not on file Number of children: Not on file Years of education: Not on file Highest education level: Not on file Occupational History Not on file Social Needs Financial resource strain: Not on file Food insecurity: Worry: Not on file Inability: Not on file Transportation needs: Medical: Not on file Non-medical: Not on file Tobacco Use Smoking status: Never Smoker Substance and Sexual Activity Alcohol use: Yes Comment: rarely Drug use: No Sexual activity: Not on file Lifestyle Physical activity: Days per week: Not on file Minutes per session: Not on file Stress: Not on file Relationships Social connections: Talks on phone: Not on file Gets together: Not on file Attends sikh service: Not on file Active member of club or organization: Not on file Attends meetings of clubs or organizations: Not on file Relationship status: Not on file Intimate partner violence: Fear of current or ex partner: Not on file Emotionally abused: Not on file Physically abused: Not on file Forced sexual activity: Not on file Other Topics Concern Not on file Social History Narrative Not on file 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 STOP for rash (Patient not taking: Reported on 05/02/2017 ), Disp: 100 tablet, Rfl: 4 Levonorgestrel-Ethinyl Estrad (LILLOW PO), Take by mouth., Disp: , Rfl: Loratadine (CLARITIN PO), take by mouth., Disp: , Rfl: Montelukast Sodium (SINGULAIR PO), take by mouth., Disp: , Rfl: naproxen sodium (ANAPROX DS) 550 MG Tab, 1 po prn headache 1 po prn headache may repeat in 2 hours,Disp: 15 tablet, Rfl: 11 Niacin, Antihyperlipidemic, (NIASPAN PO), take by mouth., Disp: , Rfl: Riboflavin 100 MG Tab, take 100 mg by mouth., Disp: , Rfl: Sertraline HCl (ZOLOFT PO), take by mouth., Disp: , Rfl: SUMAtriptan Succinate (IMITREX STATDOSE SYSTEM) 4 MG/0.5ML Solution Auto- injector, 1 sub q dose prnheadache, may repeat in 2 hours; no more than 2 a day, Disp: 3 mL, Rfl: 3 topiramate 50 MG Tab, 1 at bed, Disp: 30 tablet, Rfl: 1 PHYSICAL EXAM: Blood pressure 132/78, pulse 77, resp. rate 18, height 1.549 m (5' 1), weight (!) 137.2 kg (302 lb7.5 oz), SpO2 98 %. Body mass index is 57.15 kg/m . Speech is fluent without dysarthria or dysphasia Heart regular rate rhythm without murmur or ectopy Lungs clear to auscultation without rales or rhonchi Gait and station normal. Line minimal spasm in the trapezius and cervical muscles No evidence of distal clubbing cyanosis or edema ASSESSMENT/IMPRESSION: Problem List Items Addressed This Visit Cardiovascular Intractable migraine without aura and without status migrainosus - Primary Other Visit Diagnoses Chronic migraine without aura without status migrainosus, not intractable Relevant Medications eletriptan (RELPAX) 40 MG Tab naproxen sodium (ANAPROX DS) 550 MG Tab PLAN: Magnesium 400 mg at bedtime Generic Eletriptan 40 mg at headache onset, and Sumatriptan stat dose if need We discussed her weight gain this year, and she agrees she has not been exercising or eating properly. Walk 30 minutes per day Continue water intake Consider diet measures Follow-up 1 year Dictation per Kemal Norton DO documented in this encounter Reason for Referral Status Reason Specialty Diagnoses / Procedures Re ferred By Contact Referred To Contact Closed Cardiology Diagnoses Hyperlipidemia, unspecified hyperlipidemia type Procedures ECG 12 lead Farideh Puentes, CHIMNEY BUILDER [address] [place] [address] Specialty Diagnoses / Procedures Referred By Phil gibbs Referred To Contact Physical Therapy Diagnoses Temporomandibular joint disorder (TMJ) Alexandra Norton DO [address] [place] [address] Referral ID Status Reason Start Date Expiration Date V isits Requested Visits Authorized [id number] New Request 10/26/2021 11/20/2022 1 1 Scheduling Instructions . Specialty Diagnoses / Procedures Referred By Phil gibbs Referred To Contact Orthopaedic Surgery / Orthopedic Surgery Diagnoses Primary osteoarthritis of right knee Procedures L Inj/Asp: R knee Abram Montes MD [address] [facility], [address] [place] [address] Referral ID Status Reason Start Date Expiration Date V isits Requested Visits Authorized [id number] Pending Review 01/17/2023 01/17/2024 1 1 Specialty Diagnoses / Procedures Referred By Contac t Referred To Contact Radiology Diagnoses Chronic pain of right knee Procedures XR knee right 1-2 views Abram Montes MD [address] [facility], [address] [place] [address] Referral ID Status Reason Start Date Expiration Date Visits Requested Visits Authorized [id number] Authorized Perform Procedure 02/17/2023 02/17/2024 1 1 Specialty Diagnoses / Procedures Referred By Contac t Referred To Contact Gastroenterology Diagnoses Screen for colon cancer Procedures Colonoscopy Screening; Average Risk Patient MI COLONOSCOPY FLX DX W/COLLJ SPEC WHEN PFRMD MI COLON CA SCRN NOT HI RSK IND MI COLORECTAL SCRN; HI RISK IND MI COLONOSCOPY W/BIOPSY SINGLE/MULTIPLE MI COLSC FLX W/RMVL OF TUMOR POLYP LESION SNARE TQ MI COLSC FLX W/REMOVAL LESION BY HOT BX FORCEPS Bridger Edouard MD [address] [facility], [place] [phone] Referral ID Status Reason Start Date Expiration Date V isits Requested Visits Authorized [id number] Pending Review 06/18/2023 06/17/2024 1 1 Specialty Diagnoses / Procedures Referred By Contac t Referred To Contact Radiology Diagnoses Gallstones Procedures US gallbladder Bridger Edouard MD [address] [facility], [address] [place] [address] Referral ID Status Reason Start Date Expiration Date Visits Requested Visits Authorized [id number] Authorized Perform Procedure 06/18/2023 06/17/2024 1 1 Specialty Diagnoses / Procedures Referred By Contac t Referred To Contact Gastroenterology Diagnoses Colon cancer screening Procedures Colonoscopy Screening; Average Risk Patient MI COLONOSCOPY FLX DX W/COLLJ SPEC WHEN PFRMD MI COLON CA SCRN NOT HI RSK IND MI COLORECTAL SCRN; HI RISK IND MI COLONOSCOPY W/BIOPSY SINGLE/MULTIPLE MI COLSC FLX W/RMVL OF TUMOR POLYP LESION SNARE TQ MI COLSC FLX W/REMOVAL LESION BY HOT BX FORCEPS Leticia Jauregui, [address] [facility], [address] [place] [address] Referral ID Status Reason Start Date Expiration Date V isits Requested Visits Authorized [id number] Authorized 06/19/2023 06/18/2024 1 1 Specialty Diagnoses / Procedures Referred By Contac t Referred To Contact Radiology Diagnoses Encounter for screening mammogram for malignant neoplasm of breast Procedures BI mammo bilateral screening tomosynthesis Kingsley Hutchins MD [address] [facility], [address] [place] [address] Referral ID Status Reason Start Date Expiration Date Visits Requested Visits Authorized [id number] Authorized Perform Procedure 10/15/2023 10/14/2024 1 1 Instructions Name Dates Details Instructions not documented Name Dates Details Instructions not documented Name Dates Details Instructions not documented Name Dates Details Instructions not documented Name Dates Details Instructions not documented Name Dates Details Instructions not documented Name Dates Details Instructions not documented Name Dates Details Instructions not documented Name Dates Details Instructions not documented Chief Complaint PATIENT IS HERE FOR YEARLY EXAM AND PAP TEST. LMP: HYSTERECTOMY. PATIENT DOES NOT DO SELF BREAST EXAMS AND HAS NO CONCERNS AT THIS TIME.* sinus pain and pressure, pain in L ear x2 weeks. * An interactive audio and video telecommunication system which permits real time communications between the patient (at the originating site) and provider (at the distant site) was utilized to providethis telehealth service. * Verbal consent was requested and obtained from SURAJ HAWK on this date, 11/15/2020 10:40 AM , for a telehealth visit. pt. c/o sinus pain and pressure x1 week.Patient is here for her yearly exam and pap test. Hysterectomy in 2019. Patient does not do regularself breast exams and states she is still having difficulty sleeping.pt c/o right knee pain x 6 weeks, cough, sore throat x 2 days.* PATIENT PRESENTS TO OFFICE FOR : NPV for ARTHRITIS OF RIGHT KNEE * ONSET: A COUPLE MONTHS * DOI / DOS: NO * IMPROVED: NO * PAIN: 8/10 * PAIN MEDS TAKEN: TYLENOL, IBUPROFEN * ROM: OKAY, PAINFUL * ICE / HEAT APPLIED: NO * BRACE WORN: NO * LAST INJECTION: NO * REFERRAL: [facility] * XRAY ON 01/31/22. * PATIENT IS BEING SEEN TODAY FOR FUV REGARDING RIGHT KNEE ARTHRITIS. PATIENT DID GO TO THERAPY AND * THEY GAVE HER H.E.P. INSTRUCTIONS. SHE HAS BEEN FOLLOWING THEM DIRECTED. SHE STATES HER * PAIN IS 2/10 AT REST, AFTER WALKING OR STANDING FOR A WHILE SHE RATES IT A 7/10. SHE STATES * SHE TAKES IBUPROFEN AND TYLENOL SHE DID HAVE AN INJECTION OF CORTISONE 02/20/2022. Patient is being seen today for right pain. She is doing home therapy exercises. She had a cortisone 02/20/2022atient is being seen today for right pain. She is doing home therapy exercises. She had a cortisone 02/20/2022* F/U R KNEE PAIN * PAIN 4 on a good day usually gets up to a 10 * Tylenol and Motrin * No Ice or Heat * No brace * FUV RIGHT KNEE PAIN * PAIN: 2/10 * NAPROXEN NEEDED * FUV RIGHT KNEE PAIN * PAIN: 2/10 * NAPROXEN NEEDED Chief Complaint and Reason for Visit Chief Complaint SKIN Chief Complaint ARM,BACK,HIP,KNEE IN JURY/ MER BRUSH fall- EORDERS Reason for Visit Cervical strain Contusion of right knee Contusion of right shoulder Hip strain Strain of lumbar region Chief Complaint Admit Date PAIN- COPY PCP June 28, 2024 7:51a m Additional Source Comments INFORMATION SOURCE (unrecogn ized section and content) DATE CREATED AUTHOR 08/05/2017 [facility] DATE CREATED AUTHOR AUTHOR'S ORGANIZ ATION 08/11/2017 [facility] DATE CREATED AUTHOR AUTHOR'S ORGANIZ ATION 09/27/2018 [facility] DATE CREATED AUTHOR AUTHOR'S ORGANIZ ATION 01/09/2022 [facility] DATE CREATED AUTHOR AUTHOR'S ORGANIZ ATION 11/01/2022 [facility] DATE CREATED AUTHOR AUTHOR'S ORGANIZ ATION 11/13/2022 [facility] DATE CREATED AUTHOR AUTHOR'S ORGANIZ ATION 11/02/2023 [facility] DATE CREATED AUTHOR AUTHOR'S ORGANIZ ATION 05/09/2024 [facility] DATE CREATED AUTHOR AUTHOR'S ORGANIZ ATION 07/07/2024 [facility] DATE CREATED AUTHOR AUTHOR'S ORGANIZ ATION 07/22/2024 [facility] DATE CREATED AUTHOR AUTHOR'S ORGANIZ ATION 07/26/2024 [facility] DATE CREATED AUTHOR AUTHOR'S ORGANIZ ATION 07/26/2024 [facility] DATE CREATED AUTHOR AUTHOR'S ORGANIZ ATION 07/26/2024 [facility] Ambulatory Assessment & Plan Note - Jaclyn Meneses MD - 10/03/2017 1:38 PM EDTAssessment & Plan Note - Farideh Puentes CNP - 10/29/2018 8:14 AM EDT Miscellaneous Notes (unrecog nized section and content) Associated Problem(s): HLD (hyperlipidemia) Labs done Septemberhow normal liver functions, total cholesterol 239, triglyceride 57, HDL 56, LDL 172. These numbers are a big improvement from last year. She is gone down with cholesterol and LDL of about 20 points. I plugged her numbers into the risk calculator and she has .8% risk for a cardiac event in the next 10 years. This is largely attributable to her young age and lack of smoking or hypertension. I was able to reassure her. Her concerns are about her father having a heart attack when he was in his mid 40s however he was a smoker and also used alcohol fairly frequently. We will plan on another appointment in a year with lipid preceding Obesity weight is still the same as last year although still down 8 pounds from the year before. Over half the visit was spent in femw-ek-fjka counseling time discussing diet and exercise strategies. She seems motivated finding the time is a difficult issue. in this encounter Associated Problem(s): HLD (hyperlipidemia) As stated in HPI her triglycerides and HDL got a little worse and her total cholesterol and LDL were improved. We talked about reducing starches and sugars from her diet. We also discussed adding a walking program with weight loss documented in this encounter Reason for Visit (unrecogniz ed section and content) Reason Comments Follow-up yearly Reason Comments Follow-up 1 YEAR FOLLOW UP. DE NIES ANY DIFFICULTIES Reason Comments Follow-up Headache Reason Comments Follow-up Migraine Reason Comments Follow-up Migraine Reason Comments Follow-up Pt states no cardiac concerns today.// pt states she has been doing well. Reason Comments Pain Reason Comments URI Pt comes in for cold /flu symptoms. Pt has been having cold and flu like symptoms for 11 days. Pt states that she has been having sinus congestion, sinus drainage, chest congestion, productive cough, hot flashes, chills, nausea, vomiting, diarrhea, headache, body aches and sore throat. Reason Comments Cough Pt was seen last Sat urday for her cough and she stated the cough has progressed. Reason Comments Cough Congestion, body ach es, fever, decrease in appetite Reason Comments Follow-up Yearly/ No cardiac s ymptoms Reason Comments Migraine 6 month follow up. Reason Comments evaluate Arthritis in knee, d iscuss gallstones found on CT, discuss colonoscopy Specialty Diagnoses / Procedures Referred By Phil gibbs Referred To Contact Radiology Diagnoses Gallstones Procedures US gallbladder Bridger Edouard MD [address] [facility], [facility] [address] [place] [phone] Referral ID Status Reason Start Date Expiration Date Visits Requested Visits Authorized [id number] Authorized Perform Procedure 06/18/2023 06/17/2024 1 1 Reason Comments Consult Referred by Dr. Constantino downey for cholelithiasis with RUQ US on 06-23-23. C/O, RUQ and RLQ pressure sensation, denies any pain or abnormalities, bulging, constipation, diarrhea , N/V. HX of ER visit 02/[address] and CXR ordered. Specialty Diagnoses / Procedures Referred By Phil gibbs Referred To Contact General Surgery Diagnoses Gallstones Bridger Edouard MD [address] [facility], [address] [place] [address] Purnima Lees MD [address] [facility], [address] [place] [address] Referral ID Status Reason Start Date Expiration Date Visits Requested Visits Authorized [id number] Authorized Specialty Services Required 06/23/2023 06/22/2024 1 1 Reason Comments Injections Patient is here for her 1st of 3 Euflexxa injections into her right knee. Reason Comments Med Management Reason Comments Injections Patient is here for her 2nd of 3 Euflexxa injections into her right knee. Reason Comments Injections Patient is here for her 3rd of 3 Euflexxa injections into her right knee. Specialty Diagnoses / Procedures Referred By Phil gibbs Referred To Contact Diagnoses Encounter for screening for malignant neoplasm of colon Procedures MI COLONOSCOPY FLX DX W/COLLJ SPEC WHEN PFRMD MI COLONOSCOPY W/BIOPSY SINGLE/MULTIPLE MI COLSC FLX W/REMOVAL LESION BY HOT BX FORCEPS MI COLSC FLX W/RMVL OF TUMOR POLYP LESION SNARE TQ [id number] [address] [place] [address] [phone] Referral ID Status Reason Start Date Expiration Date Visits Re quested Visits Authorized [id number] 1 1 Reason Comments Botox Injection Reason Comments Migraine Specialty Diagnoses / Procedures Referred By Phil gibbs Referred To Contact Radiology Diagnoses Encounter for screening mammogram for malignant neoplasm of breast Procedures BI mammo bilateral screening tomosynthesis Kingsley Hutchins MD [address] [place] [address] Dr GARCIA [facility], [facility] [address] [place] [address] Referral ID Status Reason Start Date Expiration Date Visits Requested Visits Authorized [id number] Authorized Perform Procedure 10/15/2023 10/14/2024 1 1 Reason Comments Follow-up Cough x2 weeks Reason Comments Follow-up Patient is doing phy sical therapy and her right knee is painful constantly. Her last cortisone injection was on 09/24/2023. Her last Gel injection series ended on 07/23/23 Pain Patient is doing phy sical therapy and her right knee is painful constantly. Her last cortisone injection was on 09/24/2023. Her last Gel injection series ended on 07/23/23 Reason Comments Follow-up Specialty Diagnoses / Procedures Referred By Phil gibbs Referred To Contact Primary Care Diagnoses Non-traumatic rhabdomyolysis Procedures Follow Up In Primary Care - Established Bridger Edouard MD [address] [facility], [facility] [address] [place] [phone] Phone: tel: fax: Referral ID Status Reason Start Date Expiration Date V isits Requested Visits Authorized [id number] Authorized 12/01/2023 11/30/2024 1 1 Reason Comments Cough Cough and sinus pieter estion, sore throat, ear pressure X 1 week Reason Comments 1 mth ov Specialty Diagnoses / Procedures Referred By Contac t Referred To Contact Primary Care Diagnoses Class 3 severe obesity due to excess calories without serious comorbidity with body mass index (BMI) of 40.0 to 44.9 in adult (Multi) Procedures Follow Up In Primary Care - Established Bridger Edouard MD [address] [facility], [facility] [address] [place] [address] Referral ID Status Reason Start Date Expiration Date V isits Requested Visits Authorized [id number] Authorized 07/14/2023 07/13/2024 1 1 Reason Comments Cough X 1 week Nasal Congestion X 1 week Reason Comments Pain Follow-up Specialty Diagnoses / Procedures Referred By Contac t Referred To Contact Orthopaedic Surgery / Orthopedic Surgery Diagnoses Primary osteoarthritis of right knee Acute pain of right knee Procedures Follow Up In Orthopaedic Surgery Elif Miller, INSTRUMENT LENS GRINDER-CHIMNEY BUILDER [address] [facility], [address] [place], [place] [id number] Referral ID Status Reason Start Date Expiration Date V isits Requested Visits Authorized [id number] Authorized 09/11/2023 09/10/2024 1 1 Reason Comments Gynecologic Exam Patient is here for yearly exam and pap test. Patient does not do regular self breast exams. Patient c/o hot flashes the last couple of days. LMP: Hysterectomy Reason Comments URI Cough, headache, bi- lat ear pain, body aches, sore throat, fatigued, dizzy spells , sinus pressure, congestion x 3 days Reason Comments Generalized Body Aches Pt comes in for g eneral body aches. Pt states for the last 4 days she has been having generalized body aches and pains. Pt states they have been getting progressively worse and she is getting dizzy with fatigue. Pt was seen at yesterday and tested negative for covid, flu and strep. Pt also endorses hot flashes, headaches. Pt denies any nausea, vomiting, diarrhea. Specialty Diagnoses / Procedures Referred By Phil gibbs Referred To Contact Diagnoses Rhabdomyolysis Procedures ip Keena Dooley MD [address] [place] [address] [address] Referral ID Status Reason Start Date Expiration Date Visits Re quested Visits Authorized [id number] 1 1 Reason Comments Follow-up Hospital discharge R habdomyolysis Reason Comments Shortness of Breath Leg Pain Pt comes in for bila teral leg pain. Pt states she was recently discharged on Friday for Rhabdo. Pt states that she was feeling better when she left but starting yesterday she began having nausea, dry heaving, SOB, weakness and bilateral leg pain. Specialty Diagnoses / Procedures Referred By Phil gibbs Referred To Contact Diagnoses Traumatic rhabdomyolysis, subsequent [place] [address] [address] [facility] Department [place] [address] [address] Referral ID Status Reason Start Date Expiration Date Visits Re quested Visits Authorized [id number] 1 1 Reason Comments Follow-up Hospital discharge, still problems with weakness and speech Reason Comments Follow-up Hospital FUV Reason Comments Follow-up Pain Reason Comments Follow-up Pain Reason Comments Pain EUFLEXXA INJECTIONS #1X-RAYS 05-06-24LAST INJ CORTISONE 03-25-24 Injections EUFLEXXA INJECTIONS #1X-RAYS 25LAST INJ CORTISONE 03-25-24 Reason Comments Follow-up Patient here for Euf lexxa injection #2 Reason Comments Injections Patient here for Euf lexxa injection #3 Reason Comments Follow-up <item> Privacy Markings (unrecogniz ed section and content) Section Author: Nila Payne PROHIBITION ON REDISCLOSURE OF CONFIDENTIAL INFORMATION This notice accompanies a disclosure of information concerning a client made to you with the consent of such client. Goals (unrecognized section and content) Goals may be documented in a n alternate sectionGoals may be documented in an alternate sectionGoals may be documented in an alternate sectionGoals may be documented in an alternate sectionGoals may be documented in an alternate section Care Teams (unrecognized sec tion and content) Career Development Associate Relationship Specialty Start Date End Date Dimitry Subramanian MD [address] [facility] [place] [address] PCP - General Family Medicine 11/04/16 Career Development Associate Relationship Specialty Start Date End Date Ayla Subramanian MD PCP - General Pediatrics 08/28/15 Career Development Associate Relationship Specialty Start Date End Date Ayla Subramanian MD PCP - General Pediatrics 08/28/15 Team Status: Active Member Role Status Dates Dr. Dimitry Subramanian MD Family Provider Active Dr. Dimitry Subramanian MD Primary Care Provider Active Team Status: Inactive Member Role Status Dates Dr. Dimitry Subramanian MD Primary Care Provider Active Dr. Maria D Humphrey MD Attending Provider, Referring Pro vider Active Career Development Associate Relationship Specialty Start Date End Date Dimitry Subramanian MD [address] [facility] [place] [address] PCP - General Family Medicine 11/04/16 Career Development Associate Relationship Specialty Start Date End Date Forrest Zuñiga MD MPH [address] [facility], [facility] [address] [place] [address] PCP - General 07/04/20 Elif Miller, INSTRUMENT LENS GRINDER-CHIMNEY BUILDER [address] [facility], [address] [place] [address] PCP - Elise BYRDO PCP 07/11/22 Career Development Associate Relationship Specialty Start Date End Date Forrest Zuñiga MD MPH [address] [facility], [address] [place] [address] PCP - General 07/04/20 Elif Miller, INSTRUMENT LENS GRINDER-CHIMNEY BUILDER [address] [facility], [address] [place] [address] PCP - Elise RICHARDSON PCP 07/11/22 Career Development Associate Relationship Specialty Start Date End Date Forrest Zuñiga MD MPH [address] [facility], [address] [place] [address] PCP - General 07/04/20 lEif Miller, INSTRUMENT LENS GRINDER-CHIMNEY BUILDER [address] [facility], [address] [place] [address] PCP - Elise RICHARDSON PCP 07/11/22 Career Development Associate Relationship Specialty Start Date End Date Forrest Zuñiga MD MPH [address] [facility], [address] [place] [address] PCP - General 07/04/20 Elif Miller, INSTRUMENT LENS GRINDER-CHIMNEY BUILDER [address] [facility], [address] [place] [address] PCP - [place] [employer] PCP 07/11/22 Career Development Associate Relationship Specialty Start Date End Date Forrest Zuñiga MD MPH [facility], [facility] [address] [place] [address] PCP - General 07/04/20 Elif Miller, INSTRUMENT LENS GRINDER-CHIMNEY BUILDER [address] [facility], [address] [place] [phone] PCP - [place] [employer] PCP 07/11/22 Career Development Associate Relationship Specialty Start Date End Date Ayla Subramanian MD PCP - General Pediatrics 08/28/15 Career Development Associate Relationship Specialty Start Date End Date Ayla Subramanian MD PCP - General Pediatrics 08/28/15 Career Development Associate Relationship Specialty Start Date End Date Ayla Subramanian MD PCP - General Pediatrics 08/28/15 Career Development Associate Relationship Specialty Start Date End Date Ayla Subramanian MD PCP - General Pediatrics 08/28/15 Career Development Associate Relationship Specialty Start Date End Date Dimitry Subramanian MD [address] [place] [address] PCP - General Family Medicine 11/04/16 Team Status: Inactive Member Role Status Dates Dr. Dimitry Subramanian MD Primary Care Provider, [facility] Active KATHY Beltrán Attending Provider Active Team Status: Inactive Member Role Status Dates Dr. Dimitry Subramanian MD Primary Care Provider Active Db Raymond PA, PA Attending Provider, Referring Provi ugo Active Career Development Associate Relationship Specialty Start Date End Date Forrest Zuñiga MD MPH [address] [facility], [address] [place] [address] PCP - General 07/04/20 Elif Miller, INSTRUMENT LENS GRINDER-CHIMNEY BUILDER [address] [facility], [address] [place] [address] PCP - [place] [employer] PCP 07/11/22 Career Development Associate Relationship Specialty Start Date End Date Forrest Zuñiga MD MPH [address] [facility] [facility], [address] [place] [address] PCP - General 07/04/20 Elif Miller, INSTRUMENT LENS GRINDER-CHIMNEY BUILDER [address] [facility], [address] [place] [address] PCP - [place] [facility] PCP 07/11/22 Career Development Associate Relationship Specialty Start Date End Date Elif Miller INSTRUMENT LENS GRINDER-CHIMNEY BUILDER [address] [facility], [address] [place] [address] PCP - [place] [facility] PCP 07/11/22 Bridger Edouard MD [address] [facility], [address] [place] [address] PCP - General Family Medicine 06/26/23 Career Development Associate Relationship Specialty Start Date End Date Elif Miller, INSTRUMENT LENS GRINDER-CHIMNEY BUILDER [address] [facility], [address] [place] [address] PCP - [place] [facility] PCP 07/11/22 Bridger Edouard MD [address] [facility], [address] [place] [address] PCP - General Family Medicine 06/26/23 Career Development Associate Relationship Specialty Start Date End Date Elif Miller, INSTRUMENT LENS GRINDER-CHIMNEY BUILDER [address] [facility], [address] [place] [address] PCP - [place] [facility] PCP 07/11/22 Bridger Edouard MD [address] [facility], [address] [place] [address] PCP - General Family Medicine 06/26/23 Career Development Associate Relationship Specialty Start Date End Date Elif Miller INSTRUMENT LENS GRINDER-CHIMNEY BUILDER [address] [facility], [address] [place], [id number] PCP - [place] [facility] PCP 07/11/22 Bridger Edouard MD [address] [facility], [address] [place] [address] PCP - General Family Medicine 06/26/23 Career Development Associate Relationship Specialty Start Date End Date Elif Miller, INSTRUMENT LENS GRINDER-CHIMNEY BUILDER [address] [facility], [address] [place] [address] PCP - [place] [facility] PCP 07/11/22 Bridger Edouard MD [address] [facility], [address] [place], [id number] PCP - General Family Medicine 06/26/23 Career Development Associate Relationship Specialty Start Date End Date Elif Miller INSTRUMENT LENS GRINDER-CHIMNEY BUILDER [address] [facility], [address] [place] [address] PCP - [place] [facility] PCP 07/11/22 Bridger Edouard MD [address] [facility], [address] [place], [id number] PCP - General Family Medicine 06/26/23 Career Development Associate Relationship Specialty Start Date End Date Elif Miller INSTRUMENT LENS GRINDER-CHIMNEY BUILDER [address] [facility], [address] [place], [id number] PCP - [place] [facility] PCP 07/11/22 Bridger Edouard MD [address] [facility], [address] [place], [id number] PCP - General Family Medicine 06/26/23 Career Development Associate Relationship Specialty Start Date End Date Elif Miller INSTRUMENT LENS GRINDER-CHIMNEY BUILDER [address] [facility], [address] [place], [id number] PCP - [place] [facility] PCP 07/11/22 Bridger Edouard MD [address] [facility], [address] [place], [id number] PCP - General Family Medicine 06/26/23 Career Development Associate Relationship Specialty Start Date End Date Elif Miller, INSTRUMENT LENS GRINDER-CHIMNEY BUILDER [address] [facility], [address] [place], [id number] PCP - [place] [facility] PCP 07/11/22 Bridger Edouard MD [address] [facility], [address] [place] [address] PCP - General Family Medicine 06/26/23 Career Development Associate Relationship Specialty Start Date End Date Dimitry Subramanian MD [address] [place] [id number] PCP - General Family Medicine 11/04/16 Career Development Associate Relationship Specialty Start Date End Date [facility] [place] [id number] PCP - General Family Medicine 11/04/16 Career Development Associate Relationship Specialty Start Date End Date Elif Miller APRN-CHIMNEY BUILDER [address] [facility], [address] [place], [id number] PCP - [place] [facility] PCP 07/11/22 Bridger Edouard MD [address] [facility], [address] [place], [id number] PCP - General Family Medicine 06/26/23 Itzel Craft, chisel grinderSoftware Validation Engineer 10/30/23 Career Development Associate Relationship Specialty Start Date End Date Elif Miller INSTRUMENT LENS GRINDER-CHIMNEY BUILDER [address] [facility], [address] [place] [address] PCP - [place] [facility] PCP 07/11/22 Bridger Edouard MD [address] [facility], [address] [place] [address] PCP - General Family Medicine 06/26/23 Itzel Craft, chisel grinderSoftware Validation Engineer 10/30/23 Career Development Associate Relationship Specialty Start Date End Date Elif Miller, INSTRUMENT LENS GRINDER-CHIMNEY BUILDER [address] [facility], [address] [place] [address] PCP - [place] [facility] PCP 07/11/22 Bridger Edouard MD [address] [facility], [address] [place], [id number] PCP - General Family Medicine 06/26/23 Itzel Craft, chisel grinderSoftware Validation Engineer 10/30/23 Career Development Associate Relationship Specialty Start Date End Date Elif Miller, INSTRUMENT LENS GRINDER-CHIMNEY BUILDER [address] [facility], [address] [place], [id number] PCP - [place] [facility] PCP 07/11/22 Bridger Edouard MD [address] [facility], [address] [place], [id number] PCP - General Family Medicine 06/26/23 Itzel Craft, chisel grinderSoftware Validation Engineer 10/30/23 Career Development Associate Relationship Specialty Start Date End Date Elif Miller, INSTRUMENT LENS GRINDER-CHIMNEY BUILDER [address] [facility], [address] [place] [address] PCP - [place] [facility] PCP 07/11/22 Bridger Edouard MD [address] [facility], [address] [place] [address] PCP - General Family Medicine 06/26/23 Itzel Craft, chisel grinderSoftware Validation Engineer 10/30/23 Career Development Associate Relationship Specialty Start Date End Date Dimitry Subramanian MD [address] [facility] [place] [phone] PCP - General Family Medicine 11/04/16 Career Development Associate Relationship Specialty Start Date End Date Elif Miller, INSTRUMENT LENS GRINDER-CHIMNEY BUILDER [address] [facility], [address] [place], [id number] PCP - [place] [facility] PCP 07/11/22 Bridger Edouard MD [address] [facility], [address] [place], [id number] PCP - General Family Medicine 06/26/23 Itzel Craft chisel grinderSoftware Validation Engineer 10/30/23 Career Development Associate Relationship Specialty Start Date End Date Elif Miller, INSTRUMENT LENS GRINDER-CHIMNEY BUILDER [address] [facility], [address] [place], [id number] PCP - [place] [facility] PCP 07/11/22 Bridger Edouard MD [address] [facility], [address] [place], [place] [id number] PCP - General Family Medicine 06/26/23 Itzel Craft chisel grinderSoftware Validation Engineer 10/30/23 Career Development Associate Relationship Specialty Start Date End Date Dimitry Subramanian MD [address] [place] [id number] PCP - General Family Medicine 11/04/16 Career Development Associate Relationship Specialty Start Date End Date Elif Miller INSTRUMENT LENS GRINDER-CHIMNEY BUILDER [address] [facility], [address] [place] [address] PCP - [place] [facility] PCP 07/11/22 Bridger Edouard MD [address] [facility], [address] [place] [address] PCP - General Family Medicine 06/26/23 Career Development Associate Relationship Specialty Start Date End Date Elif Miller, INSTRUMENT LENS GRINDER-CHIMNEY BUILDER [address] [facility], [address] [place] [address] PCP - [place] [facility] PCP 07/11/22 Bridger Edouard MD [address] [facility], [address] [place] [address] PCP - General Family Medicine 06/26/23 Career Development Associate Relationship Specialty Start Date End Date Elif Miller INSTRUMENT LENS GRINDER-CHIMNEY BUILDER [address] [facility], [address] [place] [address] PCP - [place] [facility] PCP 07/11/22 Bridger Edouard MD [address] [facility], [address] [place] [address] PCP - General Family Medicine 06/26/23 Career Development Associate Relationship Specialty Start Date End Date Elif Miller, INSTRUMENT LENS GRINDER-CHIMNEY BUILDER [address] [facility], [address] [place] [address] PCP - [place] [facility] PCP 07/11/22 Bridger Edouard MD [address] [facility], [address] [place] [address] PCP - General Family Medicine 06/26/23 Career Development Associate Relationship Specialty Start Date End Date Elif Miller, INSTRUMENT LENS GRINDER-CHIMNEY BUILDER [address] [facility] [address] [place] [address] PCP - [place] [facility] PCP 07/11/22 Bridger Edouard MD [address] [facility], [address] [place], [id number] PCP - General Family Medicine 06/26/23 Career Development Associate Relationship Specialty Start Date End Date Elif Miller INSTRUMENT LENS GRINDER-CHIMNEY BUILDER [address] [facility] [address] [place] [address] PCP - [place] [facility] PCP 07/11/22 Bridger Edouard MD [address] [facility], [address] [place] [address] PCP - General Family Medicine 06/26/23 Itzel Craft, chisel grinderSoftware Validation Engineer 10/22/23 Career Development Associate Relationship Specialty Start Date End Date Elif Miller, INSTRUMENT LENS GRINDER-CHIMNEY BUILDER [address] [facility] [address] [place] [address] PCP - [place] [facility] PCP 07/11/22 Bridger Edouard MD [address] [facility], [address] [place] [address] PCP - General Family Medicine 06/26/23 Itzel Craft, chisel grinderSoftware Validation Engineer 10/22/23 10/27/23 Career Development Associate Relationship Specialty Start Date End Date Elif Miller INSTRUMENT LENS GRINDER-CHIMNEY BUILDER [address] [facility], [address] [place] [address] PCP - [place] [facility] PCP 07/11/22 Bridger Edouard MD [address] [facility], [address] [place], [facility] PCP - General Family Medicine 06/26/23 Itzel Craft chisel grinderSoftware Validation Engineer 10/30/23 Career Development Associate Relationship Specialty Start Date End Date Elif Miller INSTRUMENT LENS GRINDER-CHIMNEY BUILDER [address] [facility], [address] [place] [address] PCP - [place] [facility] PCP 07/11/22 Bridger Edouard MD [address] [facility], [address] [place] [address] PCP - General Family Medicine 06/26/23 Itzel Craft, chisel grinderSoftware Validation Engineer 10/30/23 Career Development Associate Relationship Specialty Start Date End Date Elif Miller INSTRUMENT LENS GRINDER-CHIMNEY BUILDER PCP - [place] [facility] PCP 07/11/22 Bridger Edouard MD [address] [facility], [address] [place] [address] PCP - General Family Medicine 06/26/23 Career Development Associate Relationship Specialty Start Date End Date Elif Miller INSTRUMENT LENS GRINDER-CHIMNEY BUILDER PCP - [place] [facility] PCP 07/11/22 Bridger Edouard MD [address] [facility], [address] [place], [facility] PCP - General Family Medicine 06/26/23 Career Development Associate Relationship Specialty Start Date End Date Dimitry Subramanian MD PCP - General Family Medicine 11/04/16 Career Development Associate Relationship Specialty Start Date End Date Elif Miller INSTRUMENT LENS GRINDER-CHIMNEY BUILDER PCP - [place] [facility] PCP 07/11/22 Bridger Edouard MD [address] [facility], [address] [place] [id number] PCP - General Family Medicine 06/26/23 Career Development Associate Relationship Specialty Start Date End Date Elif Miller APRN-CHIMNEY BUILDER PCP - [place] [facility] PCP 07/11/22 Bridger Edouard MD [address] [facility], [address] [place] [id number] PCP - General Family Medicine 06/26/23 Career Development Associate Relationship Specialty Start Date End Date Elif Miller INSTRUMENT LENS GRINDER-CHIMNEY BUILDER PCP - [place] [facility] PCP 07/11/22 Bridger Edouard MD [address] [facility], [address] [place], [facility] PCP - General Family Medicine 06/26/23 Career Development Associate Relationship Specialty Start Date End Date Elif Miller INSTRUMENT LENS GRINDER-CHIMNEY BUILDER PCP - [place] [facility] PCP 07/11/22 Bridger Edouard MD [address] [facility], [address] [place] [address] PCP - General Family Medicine 06/26/23 Career Development Associate Relationship Specialty Start Date End Date Elif Miller, INSTRUMENT LENS GRINDER-CHIMNEY BUILDER PCP - [place] [facility] PCP 07/11/22 Bridger Edouard MD [address] [facility], [address] [place] [id number] PCP - General Family Medicine 06/26/23 Career Development Associate Relationship Specialty Start Date End Date Elif Miller INSTRUMENT LENS GRINDER-CHIMNEY BUILDER PCP - [place] [facility] PCP 07/11/22 Bridger Edouard MD [address] [facility], [address] [place] [id number] PCP - General Family Medicine 06/26/23 Career Development Associate Relationship Specialty Start Date End Date Elif Miller INSTRUMENT LENS GRINDER-CHIMNEY BUILDER PCP - [place] [facility] PCP 07/11/22 Bridger Edouard MD [address] [facility], [address] [place] [id number] PCP - General Family Medicine 06/26/23 Career Development Associate Relationship Specialty Start Date End Date Elif Miller INSTRUMENT LENS GRINDER-CHIMNEY BUILDER PCP - [place] [facility] PCP 07/11/22 Bridger Edouard MD [address] [facility], [address] [place] [id number] PCP - General Family Medicine 06/26/23 Team Status: Inactive Member Role Status Dates Dr. Dimitry Subramanian MD Primary Care Provider Active Start: June 28, 2024 End: June 28, 2024 Dr. Loraine Mancilla MD Attending Provider Active Start: June 28, 2024 End: June 28, 2024 Dr. Loraine Mancilla MD Referring Provider Active Start: June 28, 2024 End: June 28, 2024 Career Development Associate Relationship Specialty Start Date End Date Elif Miller INSTRUMENT LENS GRINDER-CHIMNEY BUILDER PCP - [place] [facility] PCP 07/11/22 Dimitry Subramanian MD [facility] [place] [address] PCP - General Family Medicine 07/01/24 Career Development Associate Relationship Specialty Start Date End Date Dimitry Subramanian MD PCP - General Family Medicine 11/04/16 Career Development Associate Relationship Specialty Start Date End Date Elif Miller APRN-CHIMNEY BUILDER PCP - [facility] PCP 07/11/22 Dimitry Subramanian MD [address] [facility] [place] [address] PCP - General Family Medicine 07/01/24 Scheduled Active and Recently Administ ered Medications (unrecognized section and content) Medication Order 02/06/2023 02/07/2023 02/08/2023 acetaminophen (Tylenol) tablet 975 mg (COMPLETED) 975 mg, oral, Once, On 02/08/23 at 0545, For 1 dose, If ordered PRN for pain, nurse is permitted to administer this medication for higher pain scores based on patient preference? Yes 0558 (Given - Provid er: Lily Donahue RN) amoxicillin-pot clavulanate (Augmentin) 875-125 mg per tablet 875 mg (COMPLETED) 875 mg (1 tablet), oral, Once, On 02/08/23 at 0635, For 1 dose, Suspected Indication (Select all that apply): Pneumonia, Type of Therapy: Empiric 0638 (Given - Provid er: Lily Donahue RN) ibuprofen tablet 600 mg (COMPLETED) 600 mg, oral, Once, On 02/08/23 at 0545, For 1 dose, If ordered PRN for pain, nurse is permitted to administer this medication for higher pain scores based on patient preference? Yes 0558 (Given - Provid er: Lily Donahue RN) ondansetron ODT (Zofran-ODT) disintegrating tablet 4 mg (COMPLETED) 4 mg, oral, Once, On 02/08/23 at 0545, For 1 dose 0558 (Given - Provid er: Lily Donahue RN) Scheduled Medication Order 02/11/2023 02/12/2023 02/13/2023 acetaminophen (Tylenol) tablet 650 mg (COMPLETED) 650 mg, oral, Once, On Fri02/12/23 at 2350, For 1 dose, If ordered PRN for pain, nurse is permitted to administer this medication for higher pain scores based on patient preference? Yes 2353 (Given - Provider: Edwina Orozco RN) methylPREDNISolone sod succinate (SOLU-Medrol) injection 125 mg (COMPLETED) 125 mg, intramuscular, Once, On Callie 02/13/23 at 0235, For 1 dose 0241 (Given - Provid er: Edwina Orozco RN) Scheduled Medication Order 10/19/2023 10/20/2023 10/21/2023 furosemide (Lasix) injection 20 mg (COMPLETED) 20 mg, intravenous, Once, On 10/20/23 at 1545, For 1 dose 1535 (Given - Provider: Tarsha Jordan RN) heparin (porcine) injection 7,500 Units 7,500 Units, subcutaneous, Every 8 hours scheduled, First dose on 10/18/23 at 0600 0553 (Given - Provider: Marybel Norton, RN)1444 (Given - Provider: Gabrielle Jon RN)2117 (Not Given - Provider: Marybel Nroton, AHMET - Reason: Patient/family refused) 0519 (Not Given - Provider: Marybel oNrton RN - Reason: Patient/family refused)1431 (Given - Provider: Tarsha Jordan, AHMET)2109 (Given - Provider: Marybel Nieves, AHMET) 0548 (Given - Provider: Marybel Nieves RN)1400 (Due)2200 (Due) perflutren lipid microspheres (Definity) injection 0.5-10 mL of dilution (COMPLETED) 0.5-10 mL of dilution, intravenous, Once in imaging, Starting on Fri10/20/23 at 0437, For 1 dose, CV Medications, Contrast - for use by imaging provider only. Prior to administration, Definity product must be activated. First, bring vial to room temperature. Then, shake vial for 45 seconds. Do not use if the 45 second activation cycle has not been completed. Following activation, the product will appear as a milky white suspension and may be used immediately. If not used within 5 minutes of activation, re-suspend by inverting and shaking the vial for 10 seconds. Discard unused product. Administration: Dilute 1.3 mL of activated DEFINITY with 8.7 mL of normal saline in a 10 mL syringe. Inject 0.5 mL of diluted DEFINITY when notified the images/film are unclear to enhance view of Left Ventricular borders. Repeat 0.5 mL of DEFINITY until clear images are obtained, not to exceed 10 mLs. Once images are obtained or limit of medication is reached, flush line with 10 mL of Normal Saline. 0530 (Given - Provider: Marybel Norton RN) perflutren lipid microspheres (Definity) injection 1 mL of dilution 1 mL of dilution, intravenous, Once in imaging, Starting on Fri10/20/23 at 0437, For 1 dose, CV Medications, Contrast - for use by imaging provider only. Prior to administration, Definity product must be activated. First, bring vial to room temperature. Then, shake vial for 45 seconds. Do not use if the 45 second activation cycle has not been completed. Following activation, the product will appear as a milky white suspension and may be used immediately. If not used within 5 minutes of activation, re-suspend by inverting and shaking the vial for 10 seconds. Discard unused product. Administration: Dilute 1.3 mL of activated DEFINITY with 8.7 mL of normal saline in a 10 mL syringe. Inject 0.5 mL of diluted DEFINITY when notified the images/film are unclear to enhance view of Left Ventricular borders. Repeat 0.5 mL of DEFINITY until clear images are obtained, not to exceed 10 mLs. Once images are obtained or limit of medication is reached, flush line with 10 mL of Normal Saline. perflutren protein A microsphere (Optison) injection 0.5 mL 0.5 mL, intravenous, Once in imaging, Starting on Fri10/20/23 at 0437, For 1 dose, CV Medications sertraline (Zoloft) tablet 100 mg 100 mg, oral, Nightly, First dose (after last modification) on 10/18/23 at 2100 2116 (Given - Provider: Marybel Norton RN) 2107 (Given - Provider: Marybel Nieves RN) 2100 (Due) sulfur hexafluoride microsphr (Lumason) injection 24.28 mg 24.28 mg (2 mL), intravenous, Once in imaging, Starting on Fri10/20/23 at 0437, For 1 dose, CV Medications, Follow administration with 5 mL NaCL 0.9% injection. Continuous Medication Order 10/19/2023 10/20/2023 10/21/2023 sodium chloride 0.9% infusion (CANCELED) 150 mL/hr, intravenous, Continuous, Starting on 10/18/23 at 0400 0230 (New Bag - Provider: Marybel Norton, AHMET)0800 (Stopped - Provider: Gabrielle Jon, AHMET) PRN Medication Order 10/19/2023 10/20/2023 10/21/2023 acetaminophen (Tylenol) tablet 650 mg 650 mg, oral, Every 4 hours PRN, pain mild (1-3), first line, Starting on 10/18/23 at 0207, If ordered PRN for pain, nurse is permitted to administer this medication for higher pain scores based on patient preference? Yes 829 (Given - Provider: Gabrielle Jon, AHMET)2115 (Given - Provider: Marybel Norton, RN) 530 (Given - Provider: Marybel Norton, AHMET) magnesium hydroxide (Milk of Magnesia) 2,400 mg/10 mL suspension 10 mL 10 mL, oral, Daily PRN, constipation, first line, Starting on 10/18/23 at 0331, Contact provider if no bowel movement in past 48 hours. Concentrated product. Follow administration with 8 ounces of water. ondansetron (Zofran) injection 4 mg(Linked Group 1) 4 mg, intravenous, Every 8 hours PRN, nausea/vomiting, first line, Starting on 10/18/23 at 0331, 1st Line. Give IV if patient is unable to take orally. If inadequate response within 60 minutes, proceed to next-line agent for same PRN reason or contact provider if no further options ordered. When administering via IV Push, administer over 3-5 minutes. ondansetron ODT (Zofran-ODT) disintegrating tablet 4 mg(Linked Group 1) 4 mg, oral, Every 8 hours PRN, nausea/vomiting, first line, Starting on 10/18/23 at 0331, 1st Line. Patient should allow tablet to dissolve on tongue. Do not remove from blister pack until just before administering. If inadequate response within 60 minutes, proceed to next-line agent for same PRN reason or contact provider if no further options ordered. traMADol (Ultram) tablet 50 mg 50 mg, oral, Every 6 hours PRN, pain moderate (4-6), second line, Starting on 10/18/23 at 0250, Max of 300 mg daily for patients > 75 years of age., If ordered PRN for pain, nurse is permitted to administer this medication for higher pain scores based on patient preference? Yes 1056 (Given - Provider: Lindsey Parks RN)1535 (Given - Provider: Tarsha Jordan RN) Linked Groups Order Group 1: ondansetron ODT (Zofran-ODT) disintegrating tablet 4 mgJump to med 4 mg, oral, Every 8 hours PRN, nausea/vomiting, first line, Starting on 10/18/23 at 0331, 1st Line. Patient should allow tablet to dissolve on tongue. Do not remove from blister pack until just before administering. If inadequate response within 60 minutes, proceed to next-line agent for same PRN reason or contact provider if no further options ordered. Or ondansetron (Zofran) injection 4 mgJump to med 4 mg, intravenous, Every 8 hours PRN, nausea/vomiting, first line, Starting on 10/18/23 at 0331, 1st Line. Give IV if patient is unable to take orally. If inadequate response within 60 minutes, proceed to next-line agent for same PRN reason or contact provider if no further options ordered. When administering via IV Push, administer over 3-5 minutes. Scheduled Medication Order 10/27/2023 10/28/2023 10/29/2023 cefTRIAXone (Rocephin) 1 g in dextrose (iso) IV 50 mL 1 g, intravenous, at 100 mL/hr, Administer over 30 Minutes, Every 24 hours, First dose on Fri10/28/23 at 1000, For 3 doses, premix bag, Suspected Indication (Select all that apply): Urinary Tract Infection, Type of Therapy: Empiric, Type of Urinary Tract Infection: Uncomplicated, Indications: Urinary Tract Infection 1024 (New Bag - Provider: Roxane Ross RN)1157 (Stopped - Provider: Roxane Ross RN) 0955 (New Bag - Provider: Joanne Barron RN)1148 (Stopped - Provider: Joanne Barron RN) enoxaparin (Lovenox) syringe 40 mg 40 mg, subcutaneous, Every 12 hours scheduled, First dose on Fri10/27/23 at 0900 1031 (Given - Provider: Roxane Ross RN)2000 (Given - Provider: Anny Ledezma RN) 0906 (Given - Provider: Roxane Ross RN)2041 (Given - Provider: Anny Ledezma RN) 0954 (Given - Provider: Joanne Barron, AHMET)2100 (Due) flu vaccine trivalent (PF) (Fluarix/Fluzone/Flulaval ) 6 months or greater injection 0.5 mL, intramuscular, During hospitalization, Starting on Fri10/27/23 at 0354, For 1 dose ibuprofen tablet 600 mg (COMPLETED) 600 mg, oral, Once, On Fri10/28/23 at 1430, For 1 dose, May administer with food to reduce GI upset. 1431 (Given - Provider: Roxane Ross RN) montelukast (Singulair) tablet 10 mg 10 mg, oral, Nightly, First dose on Fri10/27/23 at 2100 2001 (Given - Provider: Anny Ledezma RN) 2041 (Given - Provider: Anny Ledezma RN) 2100 (Due) pneumococcal conjugate 20-valent (PREVNAR 20) vaccine 0.5 mL, intramuscular, During hospitalization, Starting on Fri10/27/23 at 0602, For 1 dose rimegepant (NURTEC) disintegrating tablet 75 mg 75 mg, oral, Every other day, First dose on Fri10/28/23 at 1745 1850 (Given - Provider: Roxane Ross RN) sertraline (Zoloft) tablet 100 mg 100 mg, oral, Daily, First dose on Fri10/27/23 at 0900 1031 (Given - Provider: Roxane Ross RN) 0906 (Given - Provider: Roxane Ross RN) 0955 (Given - Provider: Joanne Barron RN) Continuous Medication Order 10/27/2023 10/28/2023 10/29/2023 sodium chloride 0.9% infusion 150 mL/hr, intravenous, Continuous, Starting on Fri10/27/23 at 0135 0138 (New Bag - Provider: Deepti Puente RN)0747 (New Bag - Provider: Roxane Ross RN)1419 (New Bag - Provider: Roxane Ross RN)2122 (New Bag - Provider: Anny Ledezma RN) 0914 (New Bag - Provider: Roxane Ross RN)1630 (New Bag - Provider: Roxane Ross RN)2258 (New Bag - Provider: Anny Ledezma RN) 1241 (New Bag - Provider: Joanne Barron RN)1635 (Stopped - Provider: Joanne Barron RN) PRN Medication Order 10/27/2023 10/28/2023 10/29/2023 acetaminophen (Tylenol) oral liquid 650 mg(Linked Group 1) 650 mg, oral, Every 4 hours PRN, pain mild (1-3), first line, Starting on Fri10/27/23 at 0304, Give oral liquid per feeding tube if present or if patient prefers oral liquid over tablets. 1738 (See Alternative - Provider: Roxane Ross RN) 0920 (See Alternative - Provider: Roxane Ross RN) acetaminophen (Tylenol) suppository 650 mg(Linked Group 1) 650 mg, rectal, Every 4 hours PRN, pain mild (1-3), first line, Starting on Fri10/27/23 at 0304, Give rectally if unable to administer by mouth or feeding tube., If ordered PRN for pain, nurse is permitted to administer this medication for higher pain scores based on patient preference? Yes 1738 (See Alternative - Provider: Roxane Ross RN) 0920 (See Alternative - Provider: Roxane Ross RN) acetaminophen (Tylenol) tablet 650 mg(Linked Group 1) 650 mg, oral, Every 4 hours PRN, pain mild (1-3), first line, Starting on Fri10/27/23 at 0304, Administer tablet or oral liquid per patient preference., If ordered PRN for pain, nurse is permitted to administer this medication for higher pain scores based on patient preference? Yes 1738 (Given - Provider: Roxane Ross RN) 0920 (Given - Provider: Roxane Ross RN) melatonin tablet 3 mg 3 mg, oral, Nightly PRN, sleep, Starting on Fri10/27/23 at 0303 ondansetron (Zofran) injection 4 mg(Linked Group 2) 4 mg, intravenous, Every 8 hours PRN, nausea/vomiting, first line, Starting on Fri10/27/23 at 0304, 1st Line. Give IV if patient is unable to take orally. If inadequate response within 60 minutes, proceed to next-line agent for same PRN reason or contact provider if no further options ordered. When administering via IV Push, administer over 3-5 minutes. 2001 (Given - Provider: Anny Ledezma RN) ondansetron ODT (Zofran-ODT) disintegrating tablet 4 mg(Linked Group 2) 4 mg, oral, Every 8 hours PRN, nausea/vomiting, first line, Starting on Fri10/27/23 at 0304, 1st Line. Patient should allow tablet to dissolve on tongue. Do not remove from blister pack until just before administering. If inadequate response within 60 minutes, proceed to next-line agent for same PRN reason or contact provider if no further options ordered. 2001 (See Alternative - Provider: Anny Ledezma RN) polyethylene glycol (Glycolax, Miralax) packet 17 g 17 g, oral, Daily PRN, constipation, Starting on Fri10/27/23 at 0303, Bowel Regimen - for prevention of constipation. Linked Groups Order Group 1: acetaminophen (Tylenol) tablet 650 mgJump to med 650 mg, oral, Every 4 hours PRN, pain mild (1-3), first line, Starting on Fri10/27/23 at 0304, Administer tablet or oral liquid per patient preference., If ordered PRN for pain, nurse is permitted to administer this medication for higher pain scores based on patient preference? Yes Or acetaminophen (Tylenol) oral liquid 650 mgJump to med 650 mg, oral, Every 4 hours PRN, pain mild (1-3), first line, Starting on Fri10/27/23 at 0304, Give oral liquid per feeding tube if present or if patient prefers oral liquid over tablets. Or acetaminophen (Tylenol) suppository 650 mgJump to med 650 mg, rectal, Every 4 hours PRN, pain mild (1-3), first line, Starting on Fri10/27/23 at 0304, Give rectally if unable to administer by mouth or feeding tube., If ordered PRN for pain, nurse is permitted to administer this medication for higher pain scores based on patient preference? Yes Group 2: ondansetron ODT (Zofran-ODT) disintegrating tablet 4 mgJump to med 4 mg, oral, Every 8 hours PRN, nausea/vomiting, first line, Starting on Fri10/27/23 at 0304, 1st Line. Patient should allow tablet to dissolve on tongue. Do not remove from blister pack until just before administering. If inadequate response within 60 minutes, proceed to next-line agent for same PRN reason or contact provider if no further options ordered. Or ondansetron (Zofran) injection 4 mgJump to med 4 mg, intravenous, Every 8 hours PRN, nausea/vomiting, first line, Starting on Fri10/27/23 at 0304, 1st Line. Give IV if patient is unable to take orally. If inadequate response within 60 minutes, proceed to next-line agent for same PRN reason or contact provider if no further options ordered. When administering via IV Push, administer over 3-5 minutes. FOR RECORDS PERTAINING TO PATIENTS WHO ARE OR HAVE BEEN ENROLLED IN A CHEMICAL DEPENDENCY/SUBSTANCEABUSE PROGRAM, SOME INFORMATION MAY BE OMITTED. This clinical summary was aggregated from multiple sources. Caution should be exercised in using it in the provision of clinical care. This summary normalizes information from multiple sources, and as a consequence, information in this document may materially change the coding, format and clinical context of patient data. In addition, data may be omitted in some cases. CLINICAL DECISIONS SHOULD BE BASED ON THE PRIMARY CLINICAL RECORDS. [employer] [facility]. provides no warranty or guarantee of the accuracy or completeness of information in this document.
[2024-08-04 10:33] LABS: Absolute Lymphocyte Count 1.84 X10^3/uL (0.83-4.51); Absolute Neutrophil Count 2.6 X10^3/uL (2.0-7.7); Basophil# 0.03 X10^3/uL; Basophil% 0.6 % (0-1); Eosinophil# 0.27 X10^3/uL; Eosinophils% 5.4 % (0-5); Hematocrit 38.1 % (37-47); Hemoglobin 12.8 g/dL (12.0-15.0); Lymphocyte # 1.84 X10^3/ul (0.83-4.51); Mean Corp Hgb Conc 33.6 g/dL (32-36); Mean Corpuscular Volume 83.4 fL (81-99); Monocyte# 0.25 X10^3/uL; NRBC Flagged by Analyzer 0 % (0-5); Neutrophil # 2.57 X10^3/uL (2.7-7.7); Neutrophil % 51.8 % (47-70); Platelet Count 214 K/mm3 (150-450); RBC Distribution Width CV 13.7 % (11.6-14.6); RBC Distribution Width SD 41.2 fl (35.1-43.9); Red Blood Count 4.57 M/mm3 (4.2-5.4)
[2024-08-04 11:04] LABS: ALB/GLOB Ratio 1.2 RATIO (0.9-2.4); AST(SGOT) 41 U/L (<=31); Alanine Aminotransfer ALT/SGPT 51 U/L (<=34); Albumin, Serum 4.3 g/dL (3.5-5.0); Alkaline Phosphatase 99 U/L (35-104); Anion Gap 11 (5-15); BUN 22 mg/dL (4-19); BUN/Creat Ratio 28.3 RATIO (10-20); CPK Total, Creatine Kinase 63 U/L (24-195); Calcium,Total 9.9 mg/dL (7.6-11.0); Chloride 103 mmol/L (98-108); Creatinine, Serum 0.78 mg/dL (0.70-1.20); EST Glomerular Filtration Rate 93 (>60); Globulin 3.5 g/dL (2.2-4.2); Glucose 90 mg/dL (70-99); Potassium 4.9 mmol/L (3.3-5.1); Protein, Total 7.8 g/dL (5.9-8.4); Sodium Level 138 mmol/L (133-145); Total Bilirubin 0.55 mg/dL (0.00-1.30)
[2024-08-16 11:08] LABS: QNTFERON TB Mitogen Value > 10.00 IU/mL (.); QNTFERON TB Nil Value 0.03 IU/mL (.); QNTFERON TB1+ Ag Value 0.05 IU/mL (.); QNTFERON TB2+ Ag Value 0.04 IU/mL (.); QNTIFERON TB Positive Criteria Negative (Negative)
== END | disposition home or self-care (01) ==
LOC: MTLAB 07:24
PROVIDERS: PCP Family Medicine; Referring Provider Internal Medicine Rheumatology; Visit Provider Internal Medicine Rheumatology
DX: L40.59 Other psoriatic arthropathy (principal); M62.82 Rhabdomyolysis; M17.11 Unilateral primary osteoarthritis, right knee; M79.7 Fibromyalgia; Z79.899 Other long term (current) drug therapy
CPT/HCPCS: 36415; 80053; 82550; 85025; 86480

== ENCOUNTER → 2024-10-01 | Outpatient (CLI) | payer BC, SELFPAY ==
[2024-10-01 10:12] LABS: Hematocrit 37.6 % (37-47); Hemoglobin 12.5 g/dL (12.0-15.0); Immature Granulocytes Count 0.010 X10^3/uL (0.0-0.0); Mean Corp Hgb Conc 33.2 g/dL (32-36); Mean Corpuscular Volume 85.3 fL (81-99); Mean Platelet Vol. 10.8 fl (6.2-12.0); NRBC Flagged by Analyzer 0 % (0-5); Platelet Count 219 K/mm3 (150-450); RBC Distribution Width CV 13.3 % (11.6-14.6); RBC Distribution Width SD 41.8 fl (35.1-43.9); Red Blood Count 4.41 M/mm3 (4.2-5.4); White Blood Count 5.0 K/mm3 (4.4-11.0)
[2024-10-01 10:38] LABS: AST(SGOT) 21 U/L (<=31); Alanine Aminotransfer ALT/SGPT 20 U/L (<=34); Albumin, Serum 4.1 g/dL (3.5-5.0); Alkaline Phosphatase 84 U/L (35-104); Anion Gap 11 (5-15); BUN 15 mg/dL (4-19); BUN/Creat Ratio 22.3 RATIO (10-20); CPK Total, Creatine Kinase 51 U/L (24-195); Calcium,Total 9.5 mg/dL (7.6-11.0); Carbon Dioxide 25.8 mmol/L (21.0-32.0); Chloride 103 mmol/L (98-108); Globulin 3.2 g/dL (2.2-4.2); Glucose 85 mg/dL (70-99); Potassium 4.2 mmol/L (3.3-5.1)
== END | disposition home or self-care (01) ==
LOC: MTLAB 07:47
PROVIDERS: PCP Family Medicine; Referring Provider Internal Medicine Rheumatology; Visit Provider Internal Medicine Rheumatology
DX: L40.59 Other psoriatic arthropathy (principal); M17.11 Unilateral primary osteoarthritis, right knee; M79.7 Fibromyalgia; M62.82 Rhabdomyolysis; Z79.899 Other long term (current) drug therapy
CPT/HCPCS: 36415; 80053; 82550; 85025

== ENCOUNTER → 2024-12-29 | Outpatient (CLI) | payer BC, SELFPAY ==
[2024-12-29 10:21] LABS: Hematocrit 37.9 % (37-47); Hemoglobin 12.3 g/dL (12.0-15.0); Immature Granulocytes Count 0.010 X10^3/uL (0.0-0.0); Mean Corp Hgb Conc 32.5 g/dL (32-36); Mean Corpuscular Volume 84.8 fL (81-99); Mean Platelet Vol. 10.8 fl (6.2-12.0); NRBC Flagged by Analyzer 0 % (0-5); Platelet Count 215 K/mm3 (150-450); RBC Distribution Width CV 13.0 % (11.6-14.6); RBC Distribution Width SD 39.8 fl (35.1-43.9); Red Blood Count 4.47 M/mm3 (4.2-5.4); White Blood Count 5.5 K/mm3 (4.4-11.0)
[2024-12-29 10:58] LABS: AST(SGOT) 24 U/L (<=31); Alanine Aminotransfer ALT/SGPT 18 U/L (<=34); Albumin, Serum 4.3 g/dL (3.5-5.0); Alkaline Phosphatase 85 U/L (35-104); Anion Gap 8 (5-15); BUN 20 mg/dL (4-19); BUN/Creat Ratio 30.5 RATIO (10-20); CPK Total, Creatine Kinase 60 U/L (24-195); Calcium,Total 9.6 mg/dL (7.6-11.0); Carbon Dioxide 25.8 mmol/L (21.0-32.0); Chloride 105 mmol/L (98-108); Globulin 3.2 g/dL (2.2-4.2); Glucose 86 mg/dL (70-99); Potassium 4.4 mmol/L (3.3-5.1)
== END | disposition home or self-care (01) ==
LOC: MTLAB 08:55
PROVIDERS: PCP Family Medicine; Referring Provider Internal Medicine Rheumatology; Visit Provider Internal Medicine Rheumatology
DX: L40.59 Other psoriatic arthropathy (principal); M17.11 Unilateral primary osteoarthritis, right knee; M79.7 Fibromyalgia; Z79.899 Other long term (current) drug therapy
CPT/HCPCS: 36415; 80053; 82550; 85025